=== PATIENT | female | born 1940 | race Caucasian/White ===

== ENCOUNTER 2016-07-13 20:06 | Inpatient (IN) | payer OTHER ==
[~2016-07-13] VITALS: Ht 157.5 cm; Wt 52.7 kg
[~2016-07-13 20:06] MED LIST: CHOLTAB3 PO; EPP3/2 IM; GABA1CAP PO; INSDGI SC; LEVO125T72 PO; LNX125 PO; LORA-741 PO; LSX40 PO; MAGN400T6 PO; NVLGI SC; SPR25 PO; TPRSR50 PO
[2016-07-13] MEDS ORDERED: ONDA8TAB12 PO (20:13)
[2016-07-13] MEDS ORDERED: LOSA50TA6 PO (20:13)
[2016-07-13] MEDS ORDERED: ACET-1487 PO (20:29)
[2016-07-13] MEDS ORDERED: AMOX500T3 PO (20:29)
[2016-07-13] MEDS ORDERED: HYDROmorphone INJ 0.5 MG/0.5 ML SYR IV STA ×3 (21:25→23:01)
[2016-07-13] MEDS ORDERED: SODIUM CHLORIDE 0.9% 500ML 500 ML IV STA (21:25)
[2016-07-13] MEDS ORDERED: ONDANSETRON INJ 2 MG/ML 2 ML VIAL IV STA (21:25)
--- NOTE | 2016-07-13 21:33 | EMERGENCY ROOM VISIT NOTE ---
History Report prepared by Nilesh: Naina Pathak Under the Supervision of: Dr. Steve Haywood M.D. 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 The patient states that she was walking into her house and she tripped up the stairs and fell forwards. She denies any abdominal pain and head injury. The patient reports that she is not on any blood thinners. 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 Review of Systems See HPI for pertinent positives & negatives. A total of 10 systems reviewed and were otherwise negative. Past Medical & Surgical Medical Problems: (1) Acute on chronic systolic heart failure (2) Aortic regurgitation (3) Atrial fibrillation (4) Benign essential hypertension (5) Cerebral hemorrhage (6) Diabetes mellitus type 2 (7) Fibromyalgia (8) Gastroesophageal reflux disease (9) Gout (10) Hemiplegia (11) History of - cerebrovascular accident (12) History of pulmonary embolism (13) Hypothyroidism (14) Pacemaker (15) Presence of IVC filter (16) Renal calculi (17) Shoulder dislocation (18) Systolic CHF, chronic (19) Tricuspid regurgitation Surgical Problems: (1) Status post appendectomy (2) Status post cardiac pacemaker procedure (3) Status post cataract extraction (4) Status post cholecystectomy (5) Status post hysterectomy (6) Status post insertion of inferior vena caval filter Family History Diabetes mellitus FHx: cancer FHx: heart disease Hypertension Social History Smoking Status: Never Smoker Marital Status: Housing Status: lives with family Occupation Status: retired Current/Historical Medications Scheduled Allopurinol (Allopurinol), 150 MG PO QAM Amoxicillin (Amoxil), 2,000 MG PO PRN/UD Atorvastatin (Lipitor), 40 MG PO DAILY Cholecalciferol (Vitamin D 400 Iu), 400 INTER.UNIT PO DAILY Digoxin (Digoxin), 0.125 MG PO DAILY@16 Diltiazem Hcl Ext Rel (Tiazac), 180 MG PO DAILY Furosemide (Lasix), 20 MG PO DAILY Gabapentin (Neurontin), 200 MG PO HS Insulin Aspart (Novolog), 8 UNITS SQ BID UD Insulin Glargine (Lantus), 45 UNITS SQ QAM Levothyroxine Sodium (Synthroid), 125 MCG PO DAILY Lorazepam (Ativan), 0.5 MG PO HS Losartan Potassium (Cozaar), 50 MG PO DAILY Magnesium Oxide (Mag-Ox), 400 MG PO BID Metoprolol Succ (Toprol Xl) (Toprol-Xl), 2 TABS PO QPM Metoprolol Succinate (Toprol Xl), 4 TAB PO QAM Spironolactone (Aldactone), 25 MG PO DAILY Scheduled PRN Acetaminophen (Tylenol Arthritis Ext Rel), 650 MG PO QID PRN for Pain Epinephrine (Epipen), 0.3 MG IM UD PRN for ALLERGIC REACTION Ondansetron Hcl (Zofran), 8 MG PO Q4 PRN for Nausea Miscellaneous Medications Insulin Aspart (Novolog), 4 UNITS SQ Allergies Coded Allergies: Citalopram (Verified Allergy, Unknown, 10/29/15) Paroxetine (Verified Allergy, Unknown, 10/29/15) Sulfa Antibiotics (Verified Allergy, Unknown, TOLERATES LASIX, 10/29/15) Wasp Venom Protein (Verified Allergy, Unknown, HIVES, 10/29/15) Celecoxib (Verified Adverse Reaction, Mild, N/V, 03/03/12) Physical Exam Vital Signs Date Time Temp Pulse Resp B/P Pulse Ox O2 Delivery O2 Flow Rate FiO2 07/14/16 01:45 106 07/14/16 01:20 103 14 155/97 97 Nasal Cannula 3.0 07/13/16 23:39 93 Nasal Cannula 2.0 07/13/16 23:38 87 Room Air 07/13/16 23:34 100 18 163/138 94 Room Air 07/13/16 21:43 93 Room Air 07/13/16 21:43 93 Room Air 07/13/16 21:43 105 18 182/116 92 Room Air 07/13/16 21:39 94 07/13/16 20:07 37.2 111 18 166/96 92 Room Air Physical Exam GENERAL: Patient is a healthy-appearing well-nourished HEAD: Normocephalic atraumatic EYES: Ocular movements intact pupils equal and react to light OROPHARYNX mucous membranes are moist no exudates present no erythema or edema present NECK: Supple no nuchal rigidity CHEST: Good equal expansion LUNGS: Clear and equal to auscultation CARDIAC: Normal S1 and S2 ABDOMEN: Soft nontender no guarding BACK: No CVA tenderness EXTREMITIES: No pain upon palpation normal muscle strength in all groups no clubbing cyanosis or edema. The left leg is shortened and internally rotated, the foot is neurovascularly intact. NEURO: Patient is following commands is answering questions appropriately. Alert and oriented x3 Cranial Nerves 2-12 grossly intact Medical Decision & Procedures ER Provider Diagnostic Interpretation: X-ray results as stated below per interpretation by me and the radiologist: LEFT FEMUR 2 VIEWS ROUTINE DISCUSSION: There is a suspected nondisplaced intertrochanteric left hip fracture. Additional imaging is recommended for confirmation. IMPRESSION: Possible nondisplaced intertrochanteric left hip fracture. Additional imaging is recommended for confirmation. Electronically signed by: Josh Donis M.D. 07/13/2016 10:52 PM Dictated Date/Time: 07/13/2016 10:51 PM PELVIS 1 OR 2 VIEW ROUTINE FINDINGS: There is an intertrochanteric lucency. Given history of pain, the findings may represent a nondisplaced intertrochanteric hip fracture. Additional imaging is recommended for confirmation. The bones are osteopenic. IVC filter is visualized. IMPRESSION: Possible nondisplaced intertrochanteric left hip fracture. Additional imaging is recommended in follow-up for confirmation Electronically signed by: Josh Donis M.D. 07/13/2016 10:51 PM Dictated Date/Time: 07/13/2016 10:[address] LEFT HIP: CT Confirms the presence of comminuted left intertochanteric hip fracture. Associated soft tissue injury. Bladder appears catheterized and decompressed limiting evaluation. There does appear to be soft tissue emphysema and/or extraluminal air in the pelvis. Etiology is uncertain. There is diverticulosis but no diverticulitis is seen. Soft tissues are not ideally defined as exam was protocoled with bone windows for evaluation of the bony structures. Suspected extraluminal air does appear confined to the lower pelvis. Clinical correlation needed. Nonobstructive right renal stones. IVC filter. Possible cirrhotic morphology to partially imaged liver, postoperative changes spine, possible sacroiliitis and other incidental findings. Laboratory Results Test 07/13/16 21:30 07/13/16 23:10 07/14/16 01:58 Total Bilirubin 0.5 mg/dl (0.2-1) Direct Bilirubin 0.1 mg/dl (0-0.2) Aspartate Amino Transf (AST/SGOT) 35 U/L (15-37) Alanine Aminotransferase (ALT/SGPT) 43 U/L (12-78) Alkaline Phosphatase 110 U/L (45-117) Total Protein 8.4 gm/dl (6.4-8.2) Albumin 4.0 gm/dl (3.4-5.0) Urine Color YELLOW Urine Appearance CLEAR (CLEAR) Urine pH 5.0 (4.5-7.5) Urine Specific [place] 1.023 (1.000-1.030) Urine Protein 1+ (NEG) Urine Glucose (UA) 3+ (NEG) Urine Ketones NEG (NEG) Urine Occult Blood 3+ (NEG) Urine Nitrite NEG (NEG) Urine Bilirubin NEG (NEG) Urine Urobilinogen NEG (NEG) Urine Leukocyte Esterase SMALL (NEG) Urine WBC (Auto) 5-10 /hpf (0-5) Urine RBC (Auto) 5-10 /hpf (0-4) Urine Hyaline Casts (Auto) 1-5 /lpf (0-5) Urine Epithelial Cells (Auto) >30 /lpf (0-5) Urine Bacteria (Auto) 4+ (NEG) Urine Renal Epithelial Cells /lpf (0-5) Digoxin Level 0.9 ng/ml (0.8-2.0) Labs reviewed by ED physician. Medications Administered Medications (Trade) Dose Ordered Sig/Lesli Route Start Time Stop Time Status Last Admin Dose Admin Sodium Chloride (Nss 500ml) 500 ml @ 999 mls/hr Q31M STAT IV 07/13/16 21:25 07/13/16 21:55 DC 07/13/16 21:36 999 MLS/HR Hydromorphone HCl (Dilaudid Inj) 0.5 mg NOW STAT IV 07/13/16 21:25 07/13/16 21:27 DC 07/13/16 21:38 0.5 MG Ondansetron HCl (Zofran Inj) 4 mg NOW STAT IV 07/13/16 21:25 07/13/16 21:27 DC 07/13/16 21:37 4 MG Hydromorphone HCl 0.5 mg 0.5 mg NOW STAT IV 07/13/16 21:59 07/13/16 22:00 DC 07/13/16 22:03 0.5 MG Promethazine HCl/ Sodium Chloride (Phenergan Inj/ Nss 50ml) 51 ml @ 204 mls/hr NOW STAT IV 07/13/16 21:59 07/13/16 22:13 DC 07/13/16 22:18 204 MLS/HR Hydromorphone HCl (Dilaudid Inj) 0.5 mg NOW STAT IV 07/13/16 23:01 07/13/16 23:02 DC 07/13/16 23:33 0.5 MG Morphine Sulfate (MoRPHine SULFATE INJ) 6 mg NOW STAT IV 07/13/16 23:49 07/13/16 23:51 DC 07/14/16 00:16 6 MG Metoclopramide HCl (Reglan Inj) 10 mg NOW STAT IV 07/13/16 23:49 07/13/16 23:51 DC 07/14/16 00:17 10 MG Diazepam (Valium Inj) 5 mg NOW STAT IV 07/14/16 01:12 07/14/16 01:13 DC 07/14/16 01:16 5 MG ECG Indication: other (hip pain after fall) Rate (beats per minute): 103 Rhythm: atrial fibrillation Findings: no acute ischemic change, no ectopy, other (RVR) ED Course 2119: Past medical records reviewed. The patient was evaluated in room C10. A complete history and physical examination was performed. 2124: Zofran Inj 4mg IV, Dilaudid Inj 0.5mg IV, Sodium Chloride 500 ml @ 999 mls /hr IV. 2158: Promethazine HCl 25mg/Sodium Chloride 51ml @ 204mls/hr IV, Dilaudid Inj 0.5mg IV. 2300: Dilaudid Inj 0.5mg IV. []: I discussed the patient's case with [], He has agreed to evaluate the patient for further management and care. []: Upon reexamination the patient is hemodynamically stable. I discussed results and treatment plan with the patient. She verbalizes agreement and understanding. I spoke with [] from the [] Hospitalist Service. The patient will be evaluated for further management. Medical Decision Differential diagnosis: Etiologies such as fracture, dislocation, intra-abdominal, pneumothorax, intrathoracic , intracranial, neurologic, as well as other traumatic pathologies were entertained. This is a 76-year-old female who presents emergency department complaining of left hip pain and spasms after a fall at home. The patient appears to have a left hip fracture on x-ray. The patient was sent for CAT scan to further evaluate. Prior to the CAT scan the patient was accidentally catheterized via her vagina which I believe explains the free air on the CAT scan. The patient was given multiple doses of Dilaudid in the emergency department along with morphine and Valium to get her comfortable. I did discuss the case with both Dr. bhakta as well as the hospitalist service to admit the patient. Patient family were in agreement with the treatment plan. Impression Primary Impression: Hip fracture Critical Care I have personally spent greater than 30 minutes of critical care time in the direct management of this patient. This includes bedside care, interpretation of diagnostic studies, and testing, discussion with consultants, patient, and family members, and other required patient management activities. This 30 minutes is in excess of all separately billable procedures. Scribe Attestation The scribe's documentation has been prepared under my direction and personally reviewed by me in its entirety. I confirm that the note above accurately reflects all work, treatment, procedures, and medical decision making performed by me. Departure Information Dispostion Being Evaluated By Hospitalist Referrals Franki Holloway M.D. (PCP) Patient Instructions My [facility] Problem Qualifiers Primary Impression: Hip fracture Encounter type: initial encounter Fracture type: closed Laterality: left Qualified Codes: S72.002A - Fracture of unspecified part of neck of left femur , initial encounter for closed fracture
[2016-07-13 21:40] LABS: BASO % 0.4 %; BASO ABS # 0.02 K/uL (0-0.2); COMPLETE YES; EOS % 2.1 %; HEMATOCRIT 37.1 % (37-47); IG% 0.2 %; LYMPH % 19.5 %; LYMPH ABS # 1.11 K/uL (1.2-3.4); MEAN CELL VOLUME 95.9 fL (80-100); MEAN CORPUSCULAR HEMOGLOBIN 32.3 pg (25-34); MEAN CORPUSCULAR HGB CONC 33.7 g/dl (32-36); MEAN PLATELET VOLUME 9.6 fL (7.4-10.4); MONO % 10.4 %; NEUT % 67.4 %; PLATELET COUNT 127 K/uL (130-400); RED BLOOD COUNT 3.87 M/uL (4.2-5.4); WHITE BLOOD COUNT 5.68 K/uL (4.8-10.8)
[2016-07-13] MEDS ORDERED: PROMETHAZINE HCL INJ 25 MG in SODIUM CHLORIDE 0.9% 50ML 50 ML IV STA (21:59)
[2016-07-13 22:02] LABS: BUN/CREATININE RATIO 37.3 (10-20); CALCIUM 9.1 mg/dl (8.5-10.1); CREATININE 0.79 mg/dl (0.60-1.20)
[2016-07-13 22:06] LABS: POTASSIUM 3.8 mmol/L (3.5-5.1)
[2016-07-13] MEDS ORDERED: INSDGI SQ (22:37)
[2016-07-13] MEDS ORDERED: GABA-112 PO (22:37)
[2016-07-13] MEDS ORDERED: DILT-113 PO (22:37)
[2016-07-13] MEDS ORDERED: METO50TA7 PO (22:37)
[2016-07-13] MEDS ORDERED: ATOR-24 PO (22:37)
[2016-07-13] MEDS ORDERED: METO-217 PO (22:37)
[2016-07-13] MEDS ORDERED: SPIR25TA PO (22:37)
[2016-07-13] MEDS ORDERED: FRS/40 PO (22:37)
[2016-07-13] MEDS ORDERED: CHOL400C7 PO (22:37)
[2016-07-13] MEDS ORDERED: NVLG SQ ×2 (22:37)
--- NOTE | 2016-07-13 22:52 | DIAGNOSTIC IMAGING REPORT ---
PELVIS 1 OR 2 VIEW ROUTINE CLINICAL HISTORY: Left hip pain COMPARISON STUDY: No previous studies for comparison. FINDINGS: There is an intertrochanteric lucency. Given history of pain, the findings may represent a nondisplaced intertrochanteric hip fracture. Additional imaging is recommended for confirmation. The bones are osteopenic. IVC filter is visualized. IMPRESSION: Possible nondisplaced intertrochanteric left hip fracture. Additional imaging is recommended in follow-up for confirmation Electronically signed by: Josh Donis M.D. 07/13/2016 10:51 PM Dictated Date/Time: 07/13/2016 10:49 PM
--- NOTE | 2016-07-13 22:54 | DIAGNOSTIC IMAGING REPORT ---
LEFT FEMUR 2 VIEWS ROUTINE CLINICAL HISTORY: Left femur pain. COMPARISON: None. DISCUSSION: There is a suspected nondisplaced intertrochanteric left hip fracture. Additional imaging is recommended for confirmation. IMPRESSION: Possible nondisplaced intertrochanteric left hip fracture. Additional imaging is recommended for confirmation. Electronically signed by: Josh Donis M.D. 07/13/2016 10:52 PM Dictated Date/Time: 07/13/2016 10:51 PM
[2016-07-13 23:26] LABS: URINE APPEARANCE CLEAR (CLEAR); URINE BILIRUBIN NEG (NEG); URINE COLOR YELLOW; URINE EPITHELIAL CELL AUTO >30 /lpf (0-5); URINE NITRITE NEG (NEG); URINE SPECIFIC GRAVITY 1.023 (1.000-1.030); UROBILINOGEN NEG (NEG); ZZURINE CULT IF INDIC CATH YES
[2016-07-13] MEDS ORDERED: ALL300 PO (23:29)
[2016-07-13] MEDS ORDERED: LORA-741 PO (23:36)
[2016-07-13 23:47] LABS: MANUAL MICROSCOPIC REQUIRED? NO; REVIEW REQ? YES
[2016-07-13] MEDS ORDERED: MoRPHine SULFATE 10 MG/ML CARP/VIAL IV STA (23:49)
[2016-07-13] MEDS ORDERED: METOCLOPRAMIDE HCL INJ 5 MG/ML 2 ML VIAL IV STA (23:49)
[2016-07-14] VITALS (7 sets, daily range): BP systolic 120–160; BP diastolic 63–92; PULSE 60–113; TEMP 36.4–36.9; O2SAT 89–95; Ht 157.5 cm; Wt 52.7 kg
[2016-07-14] MEDS ORDERED: DIAZEPAM INJ 5 MG/ML 2 ML CARP IV STA (01:12)
[2016-07-14] MEDS ORDERED: DEXTROSE 50% 50 ML SYR IV PRN (02:15)
[2016-07-14] MEDS ORDERED: GLUCOSE 10 TABS/TUBE PO PRN (02:15)
[2016-07-14] MEDS ORDERED: ACETAMINOPHEN 325 MG TAB PO PRN (02:15)
[2016-07-14] MEDS ORDERED: GLUCOSE 40% GEL 15 GM TUBE PO PRN (02:15)
[2016-07-14] MEDS ORDERED: LEVALBUTEROL/IPRATROPIUM NEB INH PRN (02:15)
[2016-07-14] MEDS ORDERED: TRAMADOL HCL 50 MG TAB PO PRN (02:15)
[2016-07-14] MEDS ORDERED: GLUCAGON FOR INJ 1 MG VIAL SQ PRN (02:15)
[2016-07-14] MEDS ORDERED: HYDROmorphone INJ 0.5 MG/0.5 ML SYR IV ONE (02:30)
[2016-07-14] MEDS ORDERED: FUROSEMIDE 40 MG TAB PO ONE (02:45)
[2016-07-14] MEDS ORDERED: LORAZEPAM 2 MG/ML 1 ML VIAL IV PRN (02:45)
[2016-07-14] MEDS ORDERED: POTASSIUM CHLORIDE 10 MEQ TABCR PO STA (02:45)
[2016-07-14] MEDS ORDERED: METOPROLOL SUCC 50MG EXT REL TAB PO ONE (02:45)
[2016-07-14] MEDS ORDERED: GABAPENTIN 100 MG CAP PO ONE (03:15)
[2016-07-14] MEDS ORDERED: INSULIN ASPART 100 UNITS/ML 3 ML PEN SC ONE (03:15)
[2016-07-14] MEDS ORDERED: IPRATROPIUM BROMIDE NEB SOLN 0.02% 2.5 ML VIAL INH PRN (03:30)
[2016-07-14] MEDS ORDERED: LEVALBUTEROL 1.25MG/0.5ML NEB INH PRN (03:30)
[2016-07-14] MEDS ORDERED: LORAZEPAM INJ 0.25 MG in SYRINGE 0.125 ML IV PRN (03:30)
[2016-07-14] MEDS: OXYCODONE/ACETAMINOPHEN 5-325 TAB PO PRN ×3 (03:35→21:24)
[2016-07-14] MEDS: LEVOTHYROXINE 125 MCG TAB PO SCH (05:49)
--- NOTE | 2016-07-14 06:54 | DIAGNOSTIC IMAGING REPORT ---
CT OF THE PELVIS AND HIPS WITHOUT CONTRAST CT DOSE: 540.48 mGy.cm CLINICAL HISTORY: Left hip pain following fall. TECHNIQUE: Axial images of the pelvis and hips were obtained without IV or oral contrast. Sagittal and coronal reconstructions were viewed. COMPARISON STUDY: CT of the abdomen and pelvis April 16, 2014. FINDINGS: Visualized portions of the liver demonstrates surface nodularity suggestive of cirrhosis. There is an IVC filter. There are several nonobstructing right renal calculi within the lower pole of the right kidney. There is extensive sigmoid diverticulosis. There is a Gonzalez balloon within the bladder which is decompressed. Of note, there is abnormal gas within the pelvis which may be extraluminal or within the wall of the bladder. This is suboptimal assessed on this unenhanced exam. There is no evidence of acute diverticulitis on this exam. Note is made of a moderately displaced, comminuted and angulated intertrochanteric fracture of the left femur with associated soft tissue swelling. This corresponds to the finding on radiograph. No additional acute fractures are identified within the hips or pelvis. IMPRESSION: 1. Acute comminuted, displaced intertrochanteric fracture of the left femur. 2. Decompressed bladder containing a Gonzalez balloon. Abnormal gas within the pelvis centered on the bladder. This could be within the bladder wall or adjacent soft tissues. Bladder wall gas is favored. The finding is nonspecific and this could be traumatic or infectious. Correlation with urinalysis is recommended. 3. Extensive sigmoid diverticulosis without evidence for acute diverticulitis. Electronically signed by: Jonathan Pederson M.D. 07/14/2016 6:53 AM Dictated Date/Time: 07/14/2016 6:44 AM
[2016-07-14] MEDS: HYDROmorphone INJ 0.5 MG/0.5 ML SYR IV PRN ×2 (07:08→23:45)
[2016-07-14 07:23] LABS: BASO % 0.3 %; BASO ABS # 0.03 K/uL (0-0.2); COMPLETE YES; EOS % 0.8 %; HEMATOCRIT 33.4 % (37-47); IG% 0.2 %; LYMPH % 12.3 %; LYMPH ABS # 1.31 K/uL (1.2-3.4); MEAN CELL VOLUME 98.5 fL (80-100); MEAN CORPUSCULAR HGB CONC 33.5 g/dl (32-36); MEAN PLATELET VOLUME 9.7 fL (7.4-10.4); MONO % 11.1 %; NEUT % 75.3 %; PLATELET COUNT 133 K/uL (130-400); RED BLOOD COUNT 3.39 M/uL (4.2-5.4); WHITE BLOOD COUNT 10.66 K/uL (4.8-10.8)
--- NOTE | 2016-07-14 07:58 | DIAGNOSTIC IMAGING REPORT ---
CHEST ONE VIEW PORTABLE CLINICAL HISTORY: Hypoxia. Left hip fracture. COMPARISON STUDY: Chest radiograph September 22, 2014. FINDINGS: A dual lead left subclavian pacemaker is in place. Marked cardiomegaly is unchanged per there is no evidence of pulmonary edema. Probably vascular congestion is unchanged. A large lateral hernia is again noted. There is no lobar consolidation. IMPRESSION: 1. Pulmonary vascular congestion without overt pulmonary edema. 2. Marked cardiomegaly. 3. Hiatal hernia. 4. Possible trace left pleural effusion. Electronically signed by: Jonathan Pederson M.D. 07/14/2016 7:57 AM Dictated Date/Time: 07/14/2016 7:55 AM
[2016-07-14 08:00] LABS: BUN/CREATININE RATIO 35.3 (10-20); CALCIUM 8.9 mg/dl (8.5-10.1); CREATININE 0.8 mg/dl (0.60-1.20); MAGNESIUM 1.9 mg/dl (1.8-2.4); POTASSIUM 4.3 mmol/L (3.5-5.1)
[2016-07-14] MEDS: CALCIUM 600MG + VIT D 400 IU TAB PO SCH ×2 (08:46→21:10)
[2016-07-14] MEDS: LOSARTAN POTASSIUM 50 MG TAB PO SCH (08:46)
[2016-07-14] MEDS: ATORVASTATIN 40 MG TAB PO SCH ×2 (08:48→08:59)
[2016-07-14] MEDS: METOPROLOL SUCC 50MG EXT REL TAB PO SCH ×2 (08:49→21:09)
[2016-07-14] MEDS: ALLOPURINOL 300 MG TAB PO SCH (08:49)
[2016-07-14] MEDS: INSULIN ASPART 100 UNITS/ML 3 ML PEN SC SCH ×4 (08:53→21:16)
[2016-07-14] MEDS ORDERED: FUROSEMIDE 20 MG TAB PO SCH (09:00)
[2016-07-14] MEDS ORDERED: INSULIN GLARGINE SOLOSTAR 100 UNITS/ML 3 ML PEN SQ SCH (09:00)
[2016-07-14] MEDS ORDERED: DILTIAZEM HCL (TIAzac) 180 MG CAPCR PO SCH (09:00)
--- NOTE | 2016-07-14 09:40 | HISTORY & PHYSICAL EXAMINATION ---
DATE OF ADMISSION: 07/14/2016 PRIMARY CARE PHYSICIAN: Dr. Fontenot. Hx obtained from px and records. CHIEF COMPLAINT: Right hip pain, fall. HISTORY OF PRESENT ILLNESS: Medical history significant for chronic systolic heart failure, EF 35% to 39%, history of SSS sp PPM, off anticoagulation because of history of frequent falls/ rectus sheath hematoma/ subarachnoid hemorrhage in the past, chronic thrombocytopenia HTN, DM2, insulin requiring;. Recent confinement last September 2014 for rapid AFib. At home, the patient tripped on stairs yesterday. Subsequently fell down, landing on her left side, no chest pain, no sob. Excruciating left hip pain, could not get up. Px brought to Emergency Room. MEDICAL HISTORY: As above. Most recent 2D echo from the office was in November 2015, which showed EF 35-39%, diffuse LV hypokinesis, left atrial enlargement, moderate MR, and moderate TR. Last outpatient [facility] cardiology visit was about 2 weeks ago. Px was complaining of increased tiredness and fatigue, shortness of breath, weight up to 14 pounds, and transient episode of chest discomfort as per note. Assessment at that time was decompensated heart failure. Diuretic dose was doubled for the next 5 days. Patient was to return for evaluation in 10 days. Recommend another AVJ ablation by [facility]. (hx partial modified AVJ ablation at [facility]) As per the patient, symptoms, leg swelling better after diuretic medication adjustment. SURGERIES: Appendectomy, cholecystectomy, hysterectomy, IVC filter placement, cataract surgery, some back surgery, wrist surgery, and pacemaker placement. HOME MEDICATIONS: Include cholecalciferol epinephrine, insulin, lorazepam, magnesium, Zofran, acetaminophen, albuterol, atorvastatin, digoxin, diltiazem, furosemide, gabapentin, Lantus, levothyroxine, losartan, metoprolol, and spironolactone. FAMILY HISTORY: Diabetes, heart disease, and high blood pressure. PERSONAL SOCIAL HISTORY: Nonsmoker. No chronic intake of alcoholic beverages. 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 REVIEW OF SYSTEMS: As per HPI, all other ROS negative. PHYSICAL EXAMINATION: VITAL SIGNS: Blood pressure noted to be 182/116, pulse rate 105, RR 14, temperature 37.2, and Sats initially 87, later 96 on room air. GENERAL: Noted to be uncomfortable. No respiratory distress. SKIN: Normal color. HEENT: [place] palpable conjunctivae. Dry mucosa. NECK: Supple. CHEST: Clear to auscultation. LUNGS: Decreased breath sounds. HEART: irregular, tachycardic, systolic murmur. ABDOMEN: Some distention, non-tenderness. EXTREMITIES: Tenderness in the left hip. NEUROLOGIC: No gross focality. LABS: Hemoglobin was noted to be 12, hematocrit 37, white cell count 5, and platelets 127. Sodium 136, chloride 103, CO2 29, BUN 30, creatinine 0.7, glucose 217. Hemoglobin A1c 05/[address] of the hip initial read, comminuted left intertrochanteric hip fracture with associated soft tissue injury. EKG noted to have AFib, rate 105, left bundle branch block. Chest x-ray cardiomegaly, min congestion. ASSESSMENT: 1. Traumatic L hip fracture secondary to mechanical fall ? underlying osteoporosis 2. Hypertensive urgency secondary to above, missed meds. 3. SSS sp PPM px currently in AF, rate slightly uncontrolled 2 to pain, missed meds off anticoagulation because of fall risk and multiple bleeding events in the past. 4. History of intracranial hemorrhage. 5. DM2, insulin requiring suboptimal control as of recent outpx HgA1c. 6. Chronic systolic heart failure (EF 35%) improved CHF sx as per px albeit mild pulm congestion on CXR following last outpatient [facility] Cardiology visit 2 weeks ago w/ additional diuretic dosing. 7. Chronic thrombocytopenia. 8. Fibromyalgia as per records PLAN: [facility] Orthopedics consult, left hip fracture. Case dw Dr. Bowen. Patient will likely need surgery. Recommend Cardiology followup eval for CHF prior to OR. (Patient known to [facility].) Continue home diuretics, rate control meds analgesia check Vit D level, postop Ca-D supplementation basal insulin, ISS BG goal 140-140. Carb count coverage indicated for suboptimal blood sugar control. Deep venous thrombosis prophylaxis SCDs RE hx ICH, thrombocytopenia. Full code. MTDD
[2016-07-14] MEDS: HYDROmorphone INJ 1 MG/ML SYR IV PRN ×2 (10:14→13:45)
[2016-07-14] MEDS ORDERED: DILTIAZEM HCL 60 MG TAB PO ONE (10:15)
--- NOTE | 2016-07-14 10:23 | ORTHOPEDIC CONSULTATION ---
DATE OF ADMISSION: 07/14/2016 CHIEF COMPLAINT: Left hip pain. HISTORY OF PRESENT ILLNESS: Roxana is a delightful patient. I have known the family for 40 years. The patient has an intertrochanteric fracture on the left hip and had a ground level fall yesterday evening, was out in community, ambulating and doing moderately well in spite of her chronic heart history, developed subacute injury. She was brought to the ER, evaluated and treated. I was consulted as was medicine. She was admitted to the medical service and I am seeing her in consultation for her left hip fracture. MEDICAL HISTORY: Positive for chronic heart failure, AFib. She is off anticoagulants because of frequent falls, injuries and bleeding. She has sick sinus syndrome, pacemaker. PAST SURGICAL HISTORY: Appendectomy, cholecystectomy, hysterectomy, IVC filter placement, cataract, wrist surgery and pacemaker placement. MEDICATIONS: Numerous, they are on the questionnaire and her H\T\P. I am not dictating those for concise records. FAMILY HISTORY: Diabetes, heart disease, hypertension. SOCIAL HISTORY: Nonsmoker. REVIEW OF SYSTEMS: Twelve system review taken, really the only thing positive is her left lower extremity difficulty. Everything else is denied. OBJECTIVE: GENERAL: She is alert, oriented, pleasant young lady, looks her stated age of 76. She is alert, oriented. Mentation normal. No depression. VITAL SIGNS: Blood pressure 182/116, pulse rate chronically over 100, respiratory rate 14, afebrile. CARDIAC: Normal S1, S2. LUNGS: Clear to auscultation. No rales, rhonchi, or wheezing. ABDOMEN: Soft, nontender. EXTREMITIES: She has tenderness to her left hip, decreased range of motion of the left hip. NEUROLOGIC: Intact. DIAGNOSTIC DATA: Images reviewed demonstrate a 2-part intratrochanteric fracture of the left hip with adequate bone quality. ASSESSMENT: Delightful young lady, 76 years of age with chronic cardiac disease and myelopathy along now with an intertrochanteric fracture of the hip. DISPOSITION: I have scheduled her for surgery tomorrow, which is the 15 of July with the first add-on case when the case should start around 8:00 a.m. Cardiology has done a marvelous job today working her up and when I spoke with brick tester, I think she is fairly optimized and will be optimized today and hopefully can get this fixed and we need to get her up on her feet. The surgery should take approximately 60 minutes. Estimates EBL of blood loss will be less than 200 mL. MTDD
[2016-07-14] MEDS: DIGOXIN 0.125 MG TAB PO SCH (15:56)
--- NOTE | 2016-07-14 16:01 | ECHOCARDIOGRAM REPORT ---
*NOTICE TO RECEIVING CONSTITUTION PARTY AGENCY This information is strictly Confidential and protected under [place] law. [place] law prohibits you from making any further disclosure of this information unless further disclosure is expressly permitted by the written consent of the person to whom it pertains or is authorized by law. A general authorization for the release of medical or other information is not sufficient for this purpose. Hospital accepts no responsibility if the information is made available to any other person, INCLUDING THE PATIENT. Interpretation Summary * Name: GWEN HENAO Study Date: 07/14/2016 10:14 AM BP: 127/73 mmHg * Patient Location: .3E\S\E318\S\1 HR: 113 * : 1940 (M/d/yyyy) Gender: Female Height: 62 in * Age: 76 yrs Ethnicity: CA Weight: 116 lb * Ordering Physician: Jules Robertson * Performed By: Klarissa Lorenzo RDCS * * Reason For Study: CHF * BSA: 1.5 m2 * The study was technically adequate. * Compared to prior study, changes are noted. * -- Conclusions -- * Left ventricular systolic function is mildly reduced. * Ejection Fraction = 40-45%. * There is moderate concentric left ventricular hypertrophy. * Septal motion is consistent with conduction abnormality. * Otherwise, mild global hypokinesis. * There is mild to moderate tricuspid regurgitation. Procedure Details * A complete two-dimensional transthoracic echocardiogram was performed (2D, M-mode, Doppler and color flow Doppler). Left Ventricle * The left ventricle is normal in size. * There is no thrombus. * There is moderate concentric left ventricular hypertrophy. * Left ventricular systolic function is mildly reduced. * Ejection Fraction = 40-45%. * Septal motion is consistent with conduction abnormality. * Otherwise, mild global hypokinesis. Right Ventricle * The right ventricular cavity size is normal (basal dimension <4.2 cm in right ventricular apical 4-chamber view). * There is a pacemaker lead in the right ventricle. * The right ventricular systolic function is normal. Atria * The left atrium is severely dilated. * Right atrial size is normal. Mitral Valve * There is severe mitral annular calcification. * There is no mitral valve stenosis. * There is mild mitral regurgitation. Tricuspid Valve * The tricuspid valve anatomy is normal. * There is no tricuspid stenosis. * There is mild to moderate tricuspid regurgitation. * Doppler findings do not suggest pulmonary hypertension. Aortic Valve * The aortic valve is trileaflet. * Aortic valve sclerosis mild, without significant aortic valvular stenosis. * No hemodynamically significant valvular aortic stenosis. * Mild aortic regurgitation. Pulmonic Valve * The pulmonary valve is inadequately visualized, but the Doppler data is adequate for interpretation. * There is no pulmonic valvular stenosis. * Trace pulmonic valvular regurgitation. Great Vessels * The aortic root is normal size. Pericardium/Pleural * There is no pericardial effusion. Great Vessels * Normal inferior vena cava size and collapsability with sniff indicates a normal right atrial pressure of 3 mmHg Left Ventricular Diastolic Function * Pulse wave TDI of the anterior and posterior mitral annulas demonstrates abnormal LV relaxation MMode 2D Measurements and Calculations IVSd 1.5 cm LVIDd 3.9 cm LVIDs 2.7 cm LVPWd 1.4 cm IVS/LVPW 1.0 FS 31.1 % EDV(Teich) 64.2 ml ESV(Teich) 26.0 ml EF(Teich) 59.5 % EDV(cubed) 57.4 ml ESV(cubed) 18.8 ml EF(cubed) 67.3 % LV mass(C)d 205.4 grams LV mass(C)dI 135.4 grams/m\S\2 CO(Teich) 3.0 l/min CI(Teich) 2.0 l/min/m\S\2 SV(Teich) 38.2 ml SI(Teich) 25.2 ml/m\S\2 CO(cubed) 3.0 l/min CI(cubed) 2.0 l/min/m\S\2 SV(cubed) 38.6 ml SI(cubed) 25.5 ml/m\S\2 Ao root diam 3.5 cm Ao root area 9.7 cm\S\2 ACS 2.1 cm LA dimension 3.8 cm asc Aorta Diam 3.3 cm LA/Ao 1.1 LVOT diam 2.1 cm LVOT area 3.4 cm\S\2 LVAd ap4 25.7 cm\S\2 LVLd ap4 7.5 cm EDV(MOD-sp4) 72.2 ml LVAs ap4 19.2 cm\S\2 LVLs ap4 7.4 cm ESV(MOD-sp4) 42.0 ml EF(MOD-sp4) 41.8 % LVAd ap2 26.0 cm\S\2 LVLd ap2 8.1 cm EDV(MOD-sp2) 69.2 ml LVAs ap2 18.2 cm\S\2 LVLs ap2 7.2 cm ESV(MOD-sp2) 39.7 ml EF(MOD-sp2) 42.6 % CO(MOD-sp4) 2.4 l/min CI(MOD-sp4) 1.6 l/min/m\S\2 SV(MOD-sp4) 30.2 ml SI(MOD-sp4) 19.9 ml/m\S\2 CO(MOD-sp2) 2.3 l/min CI(MOD-sp2) 1.5 l/min/m\S\2 SV(MOD-sp2) 29.5 ml SI(MOD-sp2) 19.5 ml/m\S\2 Doppler Measurements and Calculations MV E max pepe 103.3 cm/sec MV dec time 0.18 sec Ao V2 max 128.6 cm/sec Ao max PG 6.6 mmHg Ao max PG (full) 4.4 mmHg KHANG(V,A) 2.0 cm\S\2 KHANG(V,D) 2.0 cm\S\2 AI max pepe 382.5 cm/sec AI max PG 58.5 mmHg AI dec slope 167.5 cm/sec\S\2 AI P1/2t 668.9 msec LV V1 max PG 2.3 mmHg LV V1 max 75.2 cm/sec PA V2 max 65.2 cm/sec PA max PG 1.7 mmHg PA acc slope 487.4 cm/sec\S\2 PA acc time 0.09 sec PI max pepe 194.1 cm/sec PI max PG 15.1 mmHg PI dec slope 206.0 cm/sec\S\2 PI P1/2t 275.9 msec TR max pepe 228.7 cm/sec PA pr(Accel) 37.8 mmHg
--- NOTE | 2016-07-14 16:25 | Progress Note ---
Internal Med Progress Note Date of Service: Jul 14, 2016. Provider Documentation: SUBJECTIVE: Patient is seen and examined at bedside. She states having left hip pain. Denies any chest pain, SOB. Planned for surgery in AM. offers no other complaints. OBJECTIVE: Vital Signs-as noted below Physical Exam: General Appearance:Thin, fragile, no apparent distress Head: normocephalic, Atraumatic Eyes: normal inspection, EOMI, PERRL Neck: supple, Trachea midline Respiratory/Chest: Normal breath sounds, + creps at bases Cardiovascular: S1, S2, + systolic murmur Abdomen/GI:Soft, Non tender, Bowel sounds present Extremities/Musculoskelatal:normal inspection, no edema, decreased LLE ROM, + tender left hip Neurologic/Psych:AAOX3, grossly no focal neurological deficits Skin: normal color, warm Lab data as noted below. ASSESSMENT & PLAN: Intertrochanteric fracture of Left hip: Secondary to mechanical fall Could have underlying osteoporosis Pain control NPO after midnight for surgery tomorrow Orthopedic surgery on board Planned for Cardiology follow up eval for CHF prior to OR Cardiology consulted Hypertensive urgency: Likely secondary to pain, missed meds Resolved Continue current meds Continue to monitor Possible UTI: Urine culture:gram negative bacilli Start IV Ceftriaxone Follow up Urine sensitivities Vit D deficiency: Continue Calcium, Vit D supplements Vit D levels:13.0 SSS S/P PPM H/O Afib H/O partial modified AVJ ablation at [facility] Off anticoagulation because of fall risk and multiple bleeding events in the past Continue Digoxin, Cardizem, BB per cardiology Cardiology following H/O Intracranial hemorrhage/Rectus sheath hematoma Stable Denies head trauma during fall this encounter Monitor Hb DM II: Uncontrolled Likely secondary to pain/Infection ISS, Lantus, Accu checks Chronic systolic heart failure: Last EF 35% Improved CHF currently after last outpatient [facility] Cardiology visit 2 weeks ago w / additional diuretic dosing Diuretics per cardiology Continue digoxin, lasix, spironolactone Appreciate cardiology help Chronic thrombocytopenia: No active bleeding Monitor H/O Fibromyalgia: Stable DVT Px: SCDs, Reason: H/O ICH, thrombocytopenia CODE STATUS: Full code DISPOSITION: Continue to monitor PROCEDURES ECHO: * Left ventricular systolic function is mildly reduced. * Ejection Fraction = 40-45%. * There is moderate concentric left ventricular hypertrophy. * Septal motion is consistent with conduction abnormality. * Otherwise, mild global hypokinesis. * There is mild to moderate tricuspid regurgitation. Vital Signs: Date Time Temp Pulse Resp B/P Pulse Ox O2 Delivery O2 Flow Rate FiO2 07/14/16 16:00 92 Nasal Cannula 2.0 07/14/16 15:56 80 07/14/16 15:38 36.9 60 18 121/63 92 Nasal Cannula 2.0 07/14/16 08:45 94 Nasal Cannula 2.0 07/14/16 08:10 94 Nasal Cannula 2.0 07/14/16 07:20 36.9 113 16 127/73 89 Room Air 07/14/16 03:20 36.4 100 18 160/92 Room Air 07/14/16 02:52 115 18 159/122 96 07/14/16 01:45 106 07/14/16 01:20 103 14 155/97 97 Nasal Cannula 3.0 07/13/16 23:39 93 Nasal Cannula 2.0 07/13/16 23:38 87 Room Air 07/13/16 23:34 100 18 163/138 94 Room Air 07/13/16 21:43 93 Room Air 07/13/16 21:43 93 Room Air 07/13/16 21:43 105 18 182/116 92 Room Air 07/13/16 21:39 94 07/13/16 20:07 37.2 111 18 166/96 92 Room Air Lab Results: Results Past 24 Hours Test 07/13/16 21:30 07/13/16 23:10 07/14/16 01:58 07/14/16 03:50 Range/Units White Blood Count 5.68 4.8-10.8 K/uL Red Blood Count 3.87 4.2-5.4 M/uL Hemoglobin 12.5 12.0-16.0 g/dL Hematocrit 37.1 37-47 % Mean Corpuscular Volume 95.9 80-100 fL Mean Corpuscular Hemoglobin 32.3 25-34 pg Mean Corpuscular Hemoglobin Concent 33.7 32-36 g/dl Platelet Count 127 130-400 K/uL Mean Platelet Volume 9.6 7.4-10.4 fL Neutrophils (%) (Auto) 67.4 % Lymphocytes (%) (Auto) 19.5 % Monocytes (%) (Auto) 10.4 % Eosinophils (%) (Auto) 2.1 % Basophils (%) (Auto) 0.4 % Neutrophils # (Auto) 3.83 1.4-6.5 K/uL Lymphocytes # (Auto) 1.11 1.2-3.4 K/uL Monocytes # (Auto) 0.59 0.11-0.59 K/uL Eosinophils # (Auto) 0.12 0-0.5 K/uL Basophils # (Auto) 0.02 0-0.2 K/uL RDW Standard Deviation 45.4 36.4-46.3 fL RDW Coefficient of Variation 13.1 11.5-14.5 % Immature Granulocyte % (Auto) 0.2 % Immature Granulocyte # (Auto) 0.01 0.00-0.02 K/uL Sodium Level 141 136-145 mmol/L Potassium Level 3.8 3.5-5.1 mmol/L Chloride Level 103 98-107 mmol/L Carbon Dioxide Level 29 21-32 mmol/L Anion Gap 9.0 3-11 mmol/L Blood Urea Nitrogen 30 7-18 mg/dl Creatinine 0.79 0.60-1.20 mg/dl Est Creatinine Clear Calc Drug Dose 49.4 ml/min Estimated GFR () 85.5 Estimated GFR (Non- 73.7 BUN/Creatinine Ratio 37.3 10-20 Random Glucose 217 70-99 mg/dl Calcium Level 9.1 8.5-10.1 mg/dl Total Bilirubin 0.5 0.2-1 mg/dl Direct Bilirubin 0.1 0-0.2 mg/dl Aspartate Amino Transf (AST/SGOT) 35 15-37 U/L Alanine Aminotransferase (ALT/SGPT) 43 12-78 U/L Alkaline Phosphatase 110 45-117 U/L Total Protein 8.4 6.4-8.2 gm/dl Albumin 4.0 3.4-5.0 gm/dl Urine Color YELLOW Urine Appearance CLEAR CLEAR Urine pH 5.0 4.5-7.5 Urine Specific [place] 1.023 1.000-1.030 Urine Protein 1+ NEG Urine Glucose (UA) 3+ NEG Urine Ketones NEG NEG Urine Occult Blood 3+ NEG Urine Nitrite NEG NEG Urine Bilirubin NEG NEG Urine Urobilinogen NEG NEG Urine Leukocyte Esterase SMALL NEG Urine WBC (Auto) 5-10 0-5 /hpf Urine RBC (Auto) 5-10 0-4 /hpf Urine Hyaline Casts (Auto) 1-5 0-5 /lpf Urine Epithelial Cells (Auto) >30 0-5 /lpf Urine Bacteria (Auto) 4+ NEG Urine Renal Epithelial Cells 0-5 /lpf Digoxin Level 0.9 0.8-2.0 ng/ml Bedside Glucose 239 70-90 mg/dl Test 07/14/16 07:05 07/14/16 07:59 07/14/16 11:36 07/14/16 16:52 Range/Units White Blood Count 10.66 4.8-10.8 K/uL Red Blood Count 3.39 4.2-5.4 M/uL Hemoglobin 11.2 12.0-16.0 g/dL Hematocrit 33.4 37-47 % Mean Corpuscular Volume 98.5 80-100 fL Mean Corpuscular Hemoglobin 33.0 25-34 pg Mean Corpuscular Hemoglobin Concent 33.5 32-36 g/dl Platelet Count 133 130-400 K/uL Mean Platelet Volume 9.7 7.4-10.4 fL Neutrophils (%) (Auto) 75.3 % Lymphocytes (%) (Auto) 12.3 % Monocytes (%) (Auto) 11.1 % Eosinophils (%) (Auto) 0.8 % Basophils (%) (Auto) 0.3 % Neutrophils # (Auto) 8.04 1.4-6.5 K/uL Lymphocytes # (Auto) 1.31 1.2-3.4 K/uL Monocytes # (Auto) 1.18 0.11-0.59 K/uL Eosinophils # (Auto) 0.08 0-0.5 K/uL Basophils # (Auto) 0.03 0-0.2 K/uL RDW Standard Deviation 47.9 36.4-46.3 fL RDW Coefficient of Variation 13.4 11.5-14.5 % Immature Granulocyte % (Auto) 0.2 % Immature Granulocyte # (Auto) 0.02 0.00-0.02 K/uL Activated Partial Thromboplast Time 24.7 21.0-31.0 SECONDS Partial Thromboplastin Ratio 1.0 Sodium Level 140 136-145 mmol/L Potassium Level 4.3 3.5-5.1 mmol/L Chloride Level 106 98-107 mmol/L Carbon Dioxide Level 29 21-32 mmol/L Anion Gap 5.0 3-11 mmol/L Blood Urea Nitrogen 28 7-18 mg/dl Creatinine 0.80 0.60-1.20 mg/dl Est Creatinine Clear Calc Drug Dose 48.8 ml/min Estimated GFR () 84.2 Estimated GFR (Non- 72.6 BUN/Creatinine Ratio 35.3 10-20 Random Glucose 224 70-99 mg/dl Calcium Level 8.9 8.5-10.1 mg/dl Magnesium Level 1.9 1.8-2.4 mg/dl 25-Hydroxy Vitamin D Total 13.0 30-100 ng/ml Bedside Glucose 223 276 252 70-90 mg/dl Microbiology Results 07/13/16 Urine Culture - Preliminary, Resulted Gram Negative Bacilli
--- NOTE | 2016-07-14 18:13 | Progress Note ---
Progress Note Date of Service Jul 14, 2016. Progress Note 76 year old for IM [place] of L femur after a mechanical fall and fracture. Patient has an extensive cardiac history of chronic CHF and is closely followed for this problem. On presentation, her rapid AFib and acute HTN due to pain did leave her somewhat decompensated, but on managing these, her echocardiogram today shows improved systolic function from the most recent old echo in our files along with normal valves. In the past she has a history of hemorrhagic CVA but without new neurologic symptoms, that does not seem to be a factor here in precluding spinal. She is potentially a candidate for both spinal or general anesthesia on 07/15 at moderate risk. Given her baseline anemia and the potential for moderate blood loss, I have ordered a type and screen.
[2016-07-14] MEDS ORDERED: ERGOCALCIFEROL 50,000 INTER.UNIT CAP PO SCH (19:00)
[2016-07-14] MEDS: CEFTRIAXONE SOD INJ 1 GM in DEXTROSE 5% ADD-VANTAGE 50ML 50 ML IV SCH (19:03)
[2016-07-14] MEDS ORDERED: INSULIN GLARGINE SOLOSTAR 100 UNITS/ML 3 ML PEN SC ONE (20:50)
[2016-07-14] MEDS: GABAPENTIN 100 MG CAP PO SCH (21:10)
[2016-07-14 23:38] LABS: BUN/CREATININE RATIO 34.8 (10-20); CALCIUM 8.9 mg/dl (8.5-10.1); CREATININE 1.1 mg/dl (0.60-1.20); MAGNESIUM 1.9 mg/dl (1.8-2.4)
--- NOTE | 2016-07-14 23:43 | Progress Note ---
Internal Med Progress Note Date of Service: Jul 14, 2016. Provider Documentation: Made aware by RN of low urine output. increased serum crea on repeat labwork. gentle IVF while NPO for poss surgery in AM hold home diuretics for now Will relay to AM provider. Vital Signs: Date Time Temp Pulse Resp B/P Pulse Ox O2 Delivery O2 Flow Rate FiO2 07/14/16 23:55 Nasal Cannula 2.0 07/14/16 23:10 36.8 67 18 120/65 95 Nasal Cannula 2.0 07/14/16 16:00 92 Nasal Cannula 2.0 07/14/16 15:56 80 07/14/16 15:38 36.9 60 18 121/63 92 Nasal Cannula 2.0 07/14/16 08:45 94 Nasal Cannula 2.0 07/14/16 08:10 94 Nasal Cannula 2.0 07/14/16 07:20 36.9 113 16 127/73 89 Room Air Lab Results: Results Past 24 Hours Test 07/14/16 07:05 07/14/16 07:59 07/14/16 11:36 07/14/16 16:52 Range/Units White Blood Count 10.66 4.8-10.8 K/uL Red Blood Count 3.39 4.2-5.4 M/uL Hemoglobin 11.2 12.0-16.0 g/dL Hematocrit 33.4 37-47 % Mean Corpuscular Volume 98.5 80-100 fL Mean Corpuscular Hemoglobin 33.0 25-34 pg Mean Corpuscular Hemoglobin Concent 33.5 32-36 g/dl Platelet Count 133 130-400 K/uL Mean Platelet Volume 9.7 7.4-10.4 fL Neutrophils (%) (Auto) 75.3 % Lymphocytes (%) (Auto) 12.3 % Monocytes (%) (Auto) 11.1 % Eosinophils (%) (Auto) 0.8 % Basophils (%) (Auto) 0.3 % Neutrophils # (Auto) 8.04 1.4-6.5 K/uL Lymphocytes # (Auto) 1.31 1.2-3.4 K/uL Monocytes # (Auto) 1.18 0.11-0.59 K/uL Eosinophils # (Auto) 0.08 0-0.5 K/uL Basophils # (Auto) 0.03 0-0.2 K/uL RDW Standard Deviation 47.9 36.4-46.3 fL RDW Coefficient of Variation 13.4 11.5-14.5 % Immature Granulocyte % (Auto) 0.2 % Immature Granulocyte # (Auto) 0.02 0.00-0.02 K/uL Activated Partial Thromboplast Time 24.7 21.0-31.0 SECONDS Partial Thromboplastin Ratio 1.0 Sodium Level 140 136-145 mmol/L Potassium Level 4.3 3.5-5.1 mmol/L Chloride Level 106 98-107 mmol/L Carbon Dioxide Level 29 21-32 mmol/L Anion Gap 5.0 3-11 mmol/L Blood Urea Nitrogen 28 7-18 mg/dl Creatinine 0.80 0.60-1.20 mg/dl Est Creatinine Clear Calc Drug Dose 48.8 ml/min Estimated GFR () 84.2 Estimated GFR (Non- 72.6 BUN/Creatinine Ratio 35.3 10-20 Random Glucose 224 70-99 mg/dl Calcium Level 8.9 8.5-10.1 mg/dl Magnesium Level 1.9 1.8-2.4 mg/dl 25-Hydroxy Vitamin D Total 13.0 30-100 ng/ml Bedside Glucose 223 276 252 70-90 mg/dl Test 07/14/16 20:31 07/14/16 23:00 07/15/16 05:40 07/15/16 05:58 Range/Units Bedside Glucose 348 185 70-90 mg/dl Sodium Level 138 138 136-145 mmol/L Potassium Level 5.0 4.6 3.5-5.1 mmol/L Chloride Level 104 104 98-107 mmol/L Carbon Dioxide Level 29 29 21-32 mmol/L Anion Gap 5.0 5.0 3-11 mmol/L Blood Urea Nitrogen 38 35 7-18 mg/dl Creatinine 1.10 0.90 0.60-1.20 mg/dl Est Creatinine Clear Calc Drug Dose 35.5 43.4 ml/min Estimated GFR () 57.3 73.0 Estimated GFR (Non- 49.4 63.0 BUN/Creatinine Ratio 34.8 38.4 10-20 Random Glucose 203 156 70-99 mg/dl Calcium Level 8.9 9.2 8.5-10.1 mg/dl Magnesium Level 1.9 1.8-2.4 mg/dl Hemoglobin 10.2 12.0-16.0 g/dL Hematocrit 31.8 37-47 % Prothrombin Time 11.7 9.0-12.0 SECONDS Prothromb Time International Ratio 1.1 0.9-1.1
[2016-07-15] VITALS (11 sets, daily range): BP systolic 99–151; BP diastolic 66–74; PULSE 64–101; TEMP 36.6–37.5; O2SAT 94–100
[2016-07-15] MEDS: SODIUM CHLORIDE 0.9% 1000ML 1,000 ML IV SCH ×2 (00:19→23:10)
[2016-07-15] MEDS ORDERED: NURSING VERBAL MED ORDER ONE ×2 (03:45→17:30)
[2016-07-15] MEDS: HYDROmorphone INJ 0.5 MG/0.5 ML SYR IV PRN (04:36)
[2016-07-15] MEDS: LEVOTHYROXINE 125 MCG TAB PO SCH (04:36)
[2016-07-15 05:54] LABS: HEMATOCRIT 31.8 % (37-47)
[2016-07-15 06:02] LABS: INR 1.1 (0.9-1.1); PROTHROMBIN TIME (PATIENT) 11.7 SECONDS (9.0-12.0)
[2016-07-15] MEDS: INSULIN ASPART 100 UNITS/ML 3 ML PEN SC SCH ×4 (06:04→20:35)
[2016-07-15 06:19] LABS: BUN/CREATININE RATIO 38.4 (10-20); CALCIUM 9.2 mg/dl (8.5-10.1); CREATININE 0.9 mg/dl (0.60-1.20); POTASSIUM 4.6 mmol/L (3.5-5.1)
[2016-07-15] MEDS ORDERED: BUPIVACAINE/EPINEPHRINE 0.5% MPF 1:200,000 30 ML VIAL ONE (07:05)
[2016-07-15] MEDS ORDERED: VANCOMYCIN HCL 1000MG/20ML VIAL ONE (07:05)
[2016-07-15] MEDS ORDERED: MIDAZOLAM HCL 1 MG/ML 2ML VIAL ONE (07:06)
[2016-07-15] MEDS ORDERED: FENTANYL CITRATE INJ 50 MCG/1 ML 2 ML VIAL ONE (07:06)
--- NOTE | 2016-07-15 07:29 | History & Physical Bridge Note ---
H&P Re-Evaluation Bridge Note: I have examined the patient, reviewed the History & Physical and in the interval since the performance of the History & Physical I have noted the following changes of clinical significance: No changes noted
[2016-07-15] MEDS ORDERED: ATROPINE SULFATE 0.1 MG/ML 5ML SYR IV PRN (07:30)
[2016-07-15] MEDS ORDERED: EpHEDrine SULFATE INJ 50 MG/ML AMP IV PRN (07:30)
[2016-07-15] MEDS ORDERED: FENTANYL CITRATE INJ 50 MCG/1 ML 2 ML VIAL IV PRN (07:30)
[2016-07-15] MEDS ORDERED: ONDANSETRON INJ 2 MG/ML 2 ML VIAL IV PRN (07:30)
[2016-07-15] MEDS ORDERED: LIDOCAINE HCL 2% 2 ML VIAL (20MG/ML) ONE (08:26)
[2016-07-15] MEDS ORDERED: PROPOFOL IV EMULSION 10 MG/ML 20 ML VIAL IV ONE (08:26)
[2016-07-15] MEDS ORDERED: PHENYLEPHRINE 100MCG/ML 5ML SYR ONE (08:26)
[2016-07-15] MEDS ORDERED: SPIRONOLACTONE 25 MG TAB PO SCH (09:00)
[2016-07-15] MEDS ORDERED: POTASSIUM CHLORIDE 10 MEQ TABCR PO SCH (09:00)
--- NOTE | 2016-07-15 09:39 | DIAGNOSTIC IMAGING REPORT ---
Intraoperative left hip 4 VIEWS CLINICAL HISTORY: Left hip fracture COMPARISON STUDY: CT scan dated 07/13/2016 FLUOROSCOPY TIME: 80 seconds. FINDINGS: There is been internal fixation of the patient's intertrochanteric left hip fracture with a femoral neck nail and interlocking intramedullary [place]. IMPRESSION: 4 fluoroscopic spot images demonstrate internal fixation of the patient's left intertrochanteric left hip fracture Electronically signed by: Josh Donis M.D. 07/15/2016 9:38 AM Dictated Date/Time: 07/15/2016 9:36 AM
--- NOTE | 2016-07-15 09:44 | [facility] Post Operative Brief Note ---
Immediate Operative Summary Operative Date Jul 15, 2016. Pre-Operative Diagnosis Intertrochanteric fracture of the left hip Post-Operative Diagnosis Same as preoperative diagnosis Procedure(s) Performed Intramedullary Jaspreet Femur, Left long Surgeon Dr. Terrance Bowen Top Tile Decorator Surgeon(s) Ian Brown PA-C Estimated Blood Loss 150 mL Findings comminuted femur fracture Specimens No pathology specimens per surgeon Complication(s) None Disposition Recovery Room / PACU
[2016-07-15] MEDS ORDERED: BISACODYL 10 MG SUPP PR PRN (10:00)
--- NOTE | 2016-07-15 10:07 | Anesthesiology Progress Note ---
Anesthesia Post Op Note Date & Time Jul 15, 2016 at 10:07 Vital Signs Pain Intensity: 0 Vital Signs Past 12 Hours Date Time Temp Pulse Resp B/P Pulse Ox O2 Delivery O2 Flow Rate FiO2 07/15/16 09:55 101 12 117/82 99 Mask 10 07/15/16 09:50 108 24 103/88 100 Mask 10 07/15/16 09:45 37.1 107 16 62/43 100 Mask 10 07/15/16 07:10 37.5 84 16 151/74 94 Room Air 07/14/16 23:55 Nasal Cannula 2.0 07/14/16 23:10 36.8 67 18 120/65 95 Nasal Cannula 2.0 Notes Mental Status: alert / awake / arousable, participated in evaluation Pt Amnestic to Procedure: Yes Nausea / Vomiting: adequately controlled Pain: adequately controlled Airway Patency, RR, SpO2: stable & adequate BP & HR: stable & adequate Hydration State: stable & adequate Neuraxial Anesthesia: was administered, sensory block is resolving Anesthetic Complications: no major complications apparent
[2016-07-15] MEDS: LOSARTAN POTASSIUM 50 MG TAB PO SCH (11:12)
[2016-07-15] MEDS: ATORVASTATIN 40 MG TAB PO SCH (11:13)
[2016-07-15] MEDS: METOPROLOL SUCC 50MG EXT REL TAB PO SCH ×2 (11:13→20:37)
[2016-07-15] MEDS: CALCIUM 600MG + VIT D 400 IU TAB PO SCH ×2 (11:13→20:38)
[2016-07-15] MEDS: ALLOPURINOL 300 MG TAB PO SCH (11:13)
[2016-07-15] MEDS: DILTIAZEM HCL 120 MG EXT REL CAP PO SCH (11:15)
[2016-07-15] MEDS: INSULIN GLARGINE SOLOSTAR 100 UNITS/ML 3 ML PEN SC SCH ×2 (11:17→20:39)
--- NOTE | 2016-07-15 12:36 | Cardiology Follow-Up ---
Subjective General Date of Service: Jul 15, 2016. Pt evaluation today including: conversation w/ patient, conversation w/ family , physical exam, chart review, lab review, review of studies, review of inpatient medication list History of Present Illness The patient is a 76 year old female seen in follow up. Intramedullary [place] left femur surgery performed by Dr. Bowen this morning. No complications reported. Patient feeling well post-op. Pain well controlled. present at bedside. Patient offers no complaints. Allergies Coded Allergies: Citalopram (Verified Allergy, Unknown, 10/29/15) Paroxetine (Verified Allergy, Unknown, 10/29/15) Sulfa Antibiotics (Verified Allergy, Unknown, TOLERATES LASIX, 10/29/15) Wasp Venom Protein (Verified Allergy, Unknown, HIVES, 10/29/15) Celecoxib (Verified Adverse Reaction, Mild, N/V, 03/03/12) Social History Smoking Status: Never Smoker Hx Tobacco Use In Past Year?: No Hx Alcohol Use - Type And Amou: No Hx Substance Use - Type And Am: No Problem List Medical Problems: (1) Hip fracture Status: Acute Review of Systems Respiratory: No cough, No dyspnea at rest, No dyspnea on exertion, No hemoptysis, No shortness of breath, No sputum, No wheezing Cardiac: No PND, No chest pain, No edema, No orthopnea, No palpitations Physical Exam Vital Signs Last Vital Signs Documentation Date Time Temp Pulse Resp B/P Pulse Ox O2 Delivery O2 Flow Rate FiO2 07/15/16 11:45 37.2 85 16 99/70 100 Nasal Cannula 2.0 Physical Exam Constitutional: General Apperance: well-nourished Level of Distress: NAD Head: normocephalic, atraumatic ENMT: normal ENT inspection Neck: supple, trachea midline Lungs: Auscultation: breath sounds normal, no wheezing, no rales/crackles, no rhonchi Cardiovascular: Heart Auscultation: normal S1, normal S2, I/ WSM, irregular rate rhythm Extremities: no cyanosis, no edema, no clubbing, no ulcers Neurologic: Cranial Nerves: grossly intact Assessment and Plan Assessment and Plan Imp: 1. POD #0 left hip surgery 2. Chronic atrial fibrillation with improved rate control and contraindications to chronic anticoagulation 3. Compensated heart failure with mild LV systolic dysfunction Plan/Recommendations: Continue current cardiovascular medications as previously ordered. ECG in AM. Consider restart diuretics in AM pending review of AM labs. PT as tolerated. Pain management per orthopedic surgery. Laboratory Results Last 24 Hours Test 07/14/16 16:52 07/14/16 20:31 07/14/16 23:00 07/15/16 05:40 Bedside Glucose 252 mg/dl 348 mg/dl Sodium Level 138 mmol/L 138 mmol/L Potassium Level 5.0 mmol/L 4.6 mmol/L Chloride Level 104 mmol/L 104 mmol/L Carbon Dioxide Level 29 mmol/L 29 mmol/L Anion Gap 5.0 mmol/L 5.0 mmol/L Blood Urea Nitrogen 38 mg/dl 35 mg/dl Creatinine 1.10 mg/dl 0.90 mg/dl Est Creatinine Clear Calc Drug Dose 35.5 ml/min 43.4 ml/min Estimated GFR () 57.3 73.0 Estimated GFR (Non- 49.4 63.0 BUN/Creatinine Ratio 34.8 38.4 Random Glucose 203 mg/dl 156 mg/dl Calcium Level 8.9 mg/dl 9.2 mg/dl Magnesium Level 1.9 mg/dl Hemoglobin 10.2 g/dL Hematocrit 31.8 % Prothrombin Time 11.7 SECONDS Prothromb Time International Ratio 1.1 Test 07/15/16 05:58 07/15/16 10:15 07/15/16 11:11 Bedside Glucose 185 mg/dl 155 mg/dl 124 mg/dl
[2016-07-15] MEDS: MoRPHine SULFATE 2 MG/ML CARP IV PRN (13:10)
[2016-07-15] MEDS ORDERED: CEFAZOLIN SOD 1 GM VIAL ONE (13:14)
--- NOTE | 2016-07-15 13:22 | CARDIOLOGY CONSULTATION ---
DATE OF CONSULTATION: 07/14/2016 REFERRING PHYSICIAN: Jean Pierre Lucia MD REASON FOR CONSULTATION: Preoperative evaluation, hip fracture. HISTORY OF PRESENT ILLNESS: Ms. Linton is a complex 76-year-old female, who is well known to the cardiology service. She presented to the Emergency Department last night with fall and constant severe hip pain. X-ray confirms possible nondisplaced, left side intertrochanteric hip fracture. CT of the hip was performed, confirming the presence of comminuted left intertrochanteric hip fracture with associated soft tissue injury. From a cardiovascular perspective, the patient has been feeling well. She was out in town, shopping on the day prior to her fall. Denies chest pain or unusual shortness of breath. No orthopnea, PND, or lower extremity edema. She was recently evaluated by Trey Trevino on 07/02/2016. At that time she was noted to be mildly volume overloaded with weight gain and fatigue. The patient's diuretics were increased for 5 days. The patient noted subsequent 3-pound weight loss and improvement in symptoms. She has been doing well since that time. She was noted to be tachycardic on exam. She carries a history of persistent atrial fibrillation with difficult to control heart rates. She had a partial modified AV junction ablation in September of 2014. She has been maintained on multiple medications listed below. Her pulse rate was 100 beats per minute during her most recent office visit. She is unaware of any tachy palpitations. Denies lightheadedness, dizziness, syncope or near syncope. She also has a history of [id number] LV systolic function with her most recent echocardiogram performed in November 2015, demonstrating ejection fraction of 35-39% with moderate mixed valvular heart disease. REVIEW OF SYSTEMS: Significant for left hip pain, chronic dyspnea on exertion, ambulatory dysfunction requiring the use of a walker. Pertinent positives are otherwise noted in the HPI, a 10-system review is otherwise negative. PAST MEDICAL HISTORY: 1. Symptomatic poorly tolerated paroxysmal atrial fibrillation with rapid ventricular response, status post multiple cardioversions with the most recent being February 2014. 2. Now chronic persistent atrial fibrillation with difficult to control heart rates and intolerance to sotalol and Tikosyn. Amiodarone failed to maintain sinus rhythm in the past. 3. Tachybrady syndrome, status post dual-chamber pacemaker placement on 10/18/2009. 4. Contraindications to anticoagulation secondary to frequent falls, large rectus sheath hematoma with extraperitoneal pelvic blood and subarachnoid hemorrhage in 2009. 5. Chronic systolic and diastolic congestive heart failure. 6. Hypertensive heart disease. 7. Drug induced valvular pathology. 8. Type 2 diabetes. 9. Anxiety disorder. 10. Dyslipidemia. 11. Obesity. 12. Hypothyroidism. 13. GERD. 14. Iron deficiency anemia. 15. Gout. 16. Chronic back pain. 17. Vitamin D deficiency. 18. Nephrolithiasis. 19. Osteoarthritis. 20. Osteoporosis. PAST SURGICAL HISTORY: 1. September 2014 partial modified AV junction ablation at [facility]. 2. Multiple cardioversions, most recent in February 2014. 3. Appendectomy. 4. Cholecystectomy. 5. Hysterectomy. 6. Vena cava filter placement. 7. Breast biopsy. 8. Cataract extraction. 9. Removal of lumbar synovial cyst. 10. Achilles tendon repair. FAMILY HISTORY: Mother of pancreatic cancer at age 64. Father with CAD. She has a daughter with breast cancer. SOCIAL HISTORY: She is a nonsmoker, does not use alcohol. She is , lives with her , [place]. ALLERGIES: 1. CELEBREX. 2. SULFA. 3. BEE VENOM. 4. ASPIRIN. CURRENT OUTPATIENT MEDICATIONS: 1. Lantus 10 units subQ in the a.m. 2. Digoxin 125 mcg daily. 3. Amoxicillin 2 grams prior to procedures. 4. Insulin aspart 8 units in the a.m., 8 units at lunch, 10 units at night. 5. Lasix 20 mg daily. 6. Aldactone 25 mg daily. 7. Toprol-XL 200 mg in the a.m., 100 mg in the evening. 8. Lantus 45 units in the a.m. 9. Losartan 50 mg daily. 10. Ativan 0.5 mg as needed. 11. Cardizem CD 180 mg daily. 12. Gabapentin 200 mg at bedtime. 13. Synthroid 75 mcg daily. 14. Allopurinol 150 mg daily. 15. EpiPen as needed. 16. Claritin 10 mg as needed. 17. Magnesium oxide 400 mg daily. ECG on admission is atrial fibrillation with rapid ventricular response and left bundle branch block. Previous ECGs have demonstrated intermittent incomplete left bundle branch block as well as left bundle branch block in the past. LABORATORY DATA: White blood cell count 10.66, hemoglobin is 11.2, platelet count is 133. Sodium is 140, potassium 4.3, chloride 106, CO2 is 23, BUN is 28, creatinine is 0.80, glucose is 224, magnesium is 1.9. Digoxin 0.9. Chest x-ray on admission: Mild pulmonary vascular congestion with cardiomegaly, hiatal hernia. PHYSICAL EXAMINATION: VITAL SIGNS: Temperature is 36.9 degrees centigrade, pulse is 100 beats per minute and irregular, respiratory rate 16 breaths per minute, blood pressure 127/73, her SaO2 is 94% on 2 liters nasal cannula. GENERAL: NAD, awake, alert and oriented x3. HEENT: Her mucous membranes are moist. No scleral icterus. The conjunctivae are pink. NECK: Supple without JVD or HJR. There is no carotid bruit. HEART: Irregular and tachycardic with a normal S1 and S2. There is a soft 2/6 holosystolic murmur heard best at the left ventricular apex. LUNGS: Demonstrate diminished breath sounds at the left base. No rhonchi or wheeze. ABDOMEN: Soft, nontender. No rebound or guarding. Normal bowel sounds. EXTREMITIES: Demonstrate trace pedal edema. NEUROLOGIC: Demonstrates no focal motor deficit. FINAL IMPRESSION: 1. A 76-year-old female, considered moderate to high perioperative cardiovascular risk for orthopedic surgery due to multiple cardiovascular issues listed below. She appears compensated from a heart failure perspective, although heart rate remains chronically elevated. 2. Chronic heart failure secondary to systolic dysfunction, diastolic dysfunction, mixed valvular heart disease, chronic atrial fibrillation with borderline rate control. 3. Persistent, likely permanent atrial fibrillation with mildly elevated ventricular response -- chronic issue with history of partial/modified atrioventricular junction ablation in 2015. Previous drug intolerances as noted above. 4. Moderate left ventricular systolic dysfunction with recent ejection fraction 35-39%. 5. Contraindications to chronic anticoagulation as noted above. 6. Elevated blood pressure. PLAN AND RECOMMENDATIONS: I had a long discussion with the patient regarding her cardiovascular risk in the perioperative setting. I will increase her diltiazem to 240 mg daily and attempt to improve heart rate control, although this has been a chronic issue and her heart rates have not significantly changed over the past 12 months. She appears compensated from a heart failure perspective. We will continue her current doses of diuretic therapy. I will repeat a resting 2D transthoracic echo to assess LV systolic function as well as moderate mixed valvular heart disease. Despite findings on her echocardiogram, there is likely no further cardiovascular intervention, which would lower her overall perioperative risk at this time. The patient voiced understanding. A repeat ECG has been ordered for today. We will continue to follow closely during hospitalization. MAGDALENA
[2016-07-15] MEDS: OXYCODONE/ACETAMINOPHEN 5-325 TAB PO PRN ×2 (14:12→23:53)
[2016-07-15] MEDS: CEFAZOLIN IV 1,000 MG in DEXTROSE 5% 50ML 50 ML IV SCH ×2 (16:09→23:52)
[2016-07-15] MEDS: DIGOXIN 0.125 MG TAB PO SCH (16:11)
--- NOTE | 2016-07-15 17:45 | Progress Note ---
Internal Med Progress Note Date of Service: Jul 15, 2016. Provider Documentation: SUBJECTIVE: Patient is seen and examined at bedside. Patient states having left hip pain at surgical site otherwise doing well. Patient had surgery to left hip this morning. Denies any chest pain, SOB. Offers no other complaints. OBJECTIVE: Vital Signs-as noted below Physical Exam: General Appearance:Thin, fragile, no apparent distress Head: normocephalic, Atraumatic Eyes: normal inspection, EOMI, PERRL Neck: supple, Trachea midline Respiratory/Chest: Normal breath sounds, minimal creps at bases Cardiovascular: S1, S2, + systolic murmur Abdomen/GI:Soft, Non tender, Bowel sounds present Extremities/Musculoskelatal:normal inspection, no edema, +tender left hip in surgical bandage Neurologic/Psych:AAOX3, grossly no focal neurological deficits Skin: normal color, warm Lab data as noted below. ASSESSMENT & PLAN: Intertrochanteric fracture of Left hip: Secondary to mechanical fall Intramedullary [place] to left hip: POD #0 Could have underlying osteoporosis Pain control Appreciate Orthopedic surgery help Bowel regimen to prevent constipation Hypertensive urgency: Likely secondary to pain, missed meds Resolved Continue current meds Continue to monitor UTI: Urine culture:Klebsiella pneumoniae Continue IV Ceftriaxone Vit D deficiency: Continue Calcium, Vit D supplements Vit D levels:13.0 SSS S/P PPM H/O Afib H/O partial modified AVJ ablation at [facility] Off anticoagulation because of fall risk and multiple bleeding events in the past Continue Digoxin, Cardizem, BB per cardiology Appreciate Cardiology input H/O Intracranial hemorrhage/Rectus sheath hematoma S/P IVC filter Stable Denies head trauma during fall this encounter Monitor Hb DM II: Stable ISS, Lantus, Accu checks Chronic systolic heart failure: Last EF 35% Improved CHF currently after last outpatient G Cardiology visit 2 weeks ago w / additional diuretic dosing Continue digoxin Plan to resume diuretics tomorrow: lasix, spironolactone Cardiology following Chronic thrombocytopenia: No active bleeding Monitor H/O Fibromyalgia: Stable DVT Px: SCDs, Reason: H/O ICH, thrombocytopenia CODE STATUS: Full code DISPOSITION: Continue to monitor PROCEDURES ECHO: * Left ventricular systolic function is mildly reduced. * Ejection Fraction = 40-45%. * There is moderate concentric left ventricular hypertrophy. * Septal motion is consistent with conduction abnormality. * Otherwise, mild global hypokinesis. * There is mild to moderate tricuspid regurgitation. Vital Signs: Date Time Temp Pulse Resp B/P Pulse Ox O2 Delivery O2 Flow Rate FiO2 07/15/16 16:11 71 07/15/16 16:00 99 Nasal Cannula 4.0 07/15/16 14:56 36.8 71 18 128/68 99 Nasal Cannula 4.0 07/15/16 13:45 36.8 76 16 111/66 95 Nasal Cannula 2.0 07/15/16 12:52 75 16 130/74 99 3.0 07/15/16 11:45 37.2 85 16 99/70 100 Nasal Cannula 2.0 07/15/16 11:15 36.6 101 16 129/66 95 Nasal Cannula 2.0 07/15/16 11:00 94 Nasal Cannula 2.0 07/15/16 10:56 37.0 89 16 120/69 94 Nasal Cannula 2.0 07/15/16 10:45 93 Nasal Cannula 2.0 07/15/16 10:25 37.5 91 16 108/81 97 Nasal Cannula 2 07/15/16 10:15 106 18 120/59 96 Nasal Cannula 2 07/15/16 10:05 97 16 109/87 98 Nasal Cannula 2 07/15/16 09:55 101 12 117/82 99 Mask 10 07/15/16 09:50 108 24 103/88 100 Mask 10 07/15/16 09:45 37.1 107 16 62/43 100 Mask 10 07/15/16 07:10 37.5 84 16 151/74 94 Room Air 07/14/16 23:55 Nasal Cannula 2.0 07/14/16 23:10 36.8 67 18 120/65 95 Nasal Cannula 2.0 Lab Results: Results Past 24 Hours Test 07/14/16 20:31 07/14/16 23:00 07/15/16 05:40 07/15/16 05:58 Range/Units Bedside Glucose 348 185 70-90 mg/dl Sodium Level 138 138 136-145 mmol/L Potassium Level 5.0 4.6 3.5-5.1 mmol/L Chloride Level 104 104 98-107 mmol/L Carbon Dioxide Level 29 29 21-32 mmol/L Anion Gap 5.0 5.0 3-11 mmol/L Blood Urea Nitrogen 38 35 7-18 mg/dl Creatinine 1.10 0.90 0.60-1.20 mg/dl Est Creatinine Clear Calc Drug Dose 35.5 43.4 ml/min Estimated GFR () 57.3 73.0 Estimated GFR (Non- 49.4 63.0 BUN/Creatinine Ratio 34.8 38.4 10-20 Random Glucose 203 156 70-99 mg/dl Calcium Level 8.9 9.2 8.5-10.1 mg/dl Magnesium Level 1.9 1.8-2.4 mg/dl Hemoglobin 10.2 12.0-16.0 g/dL Hematocrit 31.8 37-47 % Prothrombin Time 11.7 9.0-12.0 SECONDS Prothromb Time International Ratio 1.1 0.9-1.1 Test 07/15/16 10:15 07/15/16 11:11 07/15/16 16:56 Range/Units Bedside Glucose 155 124 215 70-90 mg/dl
[2016-07-15] MEDS: CEFTRIAXONE SOD INJ 1 GM in DEXTROSE 5% ADD-VANTAGE 50ML 50 ML IV SCH (18:45)
[2016-07-15] MEDS: GABAPENTIN 100 MG CAP PO SCH (20:38)
[2016-07-15] MEDS: SENNA 8.6 MG TAB PO SCH (20:40)
[2016-07-16] VITALS (12 sets, daily range): BP systolic 114–153; BP diastolic 67–70; PULSE 65–100; TEMP 36.6–37.2; O2SAT 74–100
[2016-07-16] MEDS: LEVOTHYROXINE 125 MCG TAB PO SCH (05:16)
[2016-07-16] MEDS: OXYCODONE/ACETAMINOPHEN 5-325 TAB PO PRN ×2 (05:40→11:57)
[2016-07-16 06:48] LABS: HEMATOCRIT 25.6 % (37-47); MEAN CELL VOLUME 96.6 fL (80-100); MEAN CORPUSCULAR HEMOGLOBIN 31.7 pg (25-34); MEAN CORPUSCULAR HGB CONC 32.8 g/dl (32-36); MEAN PLATELET VOLUME 9.4 fL (7.4-10.4); PLATELET COUNT 122 K/uL (130-400); RED BLOOD COUNT 2.65 M/uL (4.2-5.4); WHITE BLOOD COUNT 11.11 K/uL (4.8-10.8)
[2016-07-16 07:22] LABS: CALCIUM 9.2 mg/dl (8.5-10.1); CREATININE 0.8 mg/dl (0.60-1.20); POTASSIUM 4.2 mmol/L (3.5-5.1)
--- NOTE | 2016-07-16 07:48 | OPERATIVE REPORT ---
DATE OF OPERATION: 07/15/2016 PREOPERATIVE DIAGNOSIS: Intertrochanteric fracture of the left hip. POSTOPERATIVE DIAGNOSIS: Intertrochanteric comminuted fracture, left hip. SURGEON: Dr. Bowen. BIOMEDICAL TECHNICIAN: STEVEN Duarte. PROCEDURE: Included a long IM nailing of the left femur. COMPLICATIONS: Zero. BLOOD LOSS: 150. ANESTHETIC: Spinal. DESCRIPTION OF PROCEDURE: The patient was taken to the surgical suite, successful spinal anesthetic provided to the patient, placed up on the fracture table. Provisional longitudinal traction placed to the femur, where we had near anatomic reduction on AP and lateral radiographs. We then scrubbed with Betadine, prepped with ChloraPrep and draped her sterile. We made a skin incision and fascia incision. We were able to engage the greater trochanter at the tip with a Steinmann pin running proximal to distal. We reamed up to a size 12, put in a size 11 nail 360 mm in length, locked proximally and then distally. We were pleased with the reduction and the fixation. Then we irrigated and closed in layers with #1 Vicryl, 2-0 and staple gun. Sterile dressings applied on the wound. She was safely returned to her own bed and to PACU stable without complication. I attest to the content of the Intraoperative Record and any orders documented therein. Any exceptio ns are noted below.
[2016-07-16] MEDS: CEFAZOLIN IV 1,000 MG in DEXTROSE 5% 50ML 50 ML IV SCH (08:10)
[2016-07-16] MEDS: ALLOPURINOL 300 MG TAB PO SCH (08:10)
[2016-07-16] MEDS: PANTOprazole SOD 40 MG TAB PO SCH (08:11)
[2016-07-16] MEDS: ATORVASTATIN 40 MG TAB PO SCH (08:12)
[2016-07-16] MEDS: METOPROLOL SUCC 50MG EXT REL TAB PO SCH ×2 (08:12→21:04)
[2016-07-16] MEDS: LOSARTAN POTASSIUM 50 MG TAB PO SCH (08:12)
[2016-07-16] MEDS: DILTIAZEM HCL 120 MG EXT REL CAP PO SCH (08:12)
[2016-07-16] MEDS: CALCIUM 600MG + VIT D 400 IU TAB PO SCH ×2 (08:13→21:04)
[2016-07-16] MEDS: INSULIN ASPART 100 UNITS/ML 3 ML PEN SC SCH ×4 (09:00→20:53)
[2016-07-16] MEDS: INSULIN GLARGINE SOLOSTAR 100 UNITS/ML 3 ML PEN SC SCH ×2 (09:01→21:05)
--- NOTE | 2016-07-16 09:38 | Cardiology Follow-Up ---
Subjective General Date of Service: Jul 16, 2016. Chief Complaint: POD#1 Pt evaluation today including: conversation w/ patient, physical exam, chart review, lab review, review of studies, review of inpatient medication list History of Present Illness Patient seen and examined. Status post 07/13/2016 mechanical fall, resultant intertrochanteric comminuted fracture of the left hip Status post 07/15/[address] Bowen, IM nailing of the left femur. About to participate in bedside therapy. SP02 was 70% upon entering the room, 94 % when moved to another finger. No complaints. No reported chest pain, dyspnea, or palpitations. Ate well this morning Hgb 8.4 g/dL. Sodium 133 mmol/L Furosemide and spironolactone held. Nonmonitored bed. July 14, 2016 TTE Interpretation Summary ([facility], Dr. Robertson): Left ventricular systolic function is mildly reduced. Ejection Fraction = 40-45%. There is moderate concentric left ventricular hypertrophy. Septal motion is consistent with conduction abnormality. Otherwise, mild global hypokinesis. There is mild to moderate tricuspid regurgitation. Allergies Coded Allergies: Citalopram (Verified Allergy, Unknown, 10/29/15) Paroxetine (Verified Allergy, Unknown, 10/29/15) Sulfa Antibiotics (Verified Allergy, Unknown, TOLERATES LASIX, 10/29/15) Wasp Venom Protein (Verified Allergy, Unknown, HIVES, 10/29/15) Celecoxib (Verified Adverse Reaction, Mild, N/V, 03/03/12) Social History Smoking Status: Never Smoker Hx Tobacco Use In Past Year?: No Hx Alcohol Use - Type And Amou: No Hx Substance Use - Type And Am: No Problem List Medical Problems: (1) Hip fracture Status: Acute Review of Systems Respiratory: No cough, No dyspnea at rest, No dyspnea on exertion, No hemoptysis, No shortness of breath, No sputum, No wheezing Cardiac: No PND, No chest pain, No claudication, No edema, No orthopnea, No palpitations Physical Exam Vital Signs Last Vital Signs Documentation Date Time Temp Pulse Resp B/P Pulse Ox O2 Delivery O2 Flow Rate FiO2 07/16/16 08:41 93 Room Air 07/16/16 08:01 37.2 98 18 132/70 07/16/16 05:16 2.0 Physical Exam Constitutional: General Apperance: well-nourished Level of Distress: NAD Psychiatric: Mental Status: active & alert Orientation: to time, to place, to person Memory: recent memory normal, remote memory normal Head: normocephalic, atraumatic ENMT: normal ENT inspection Neck: supple, trachea midline Lungs: Auscultation: no wheezing, deminished air movement, decreased breath sounds , rales/crackles on the right Cardiovascular: Heart Auscultation: tachycardia, I/ WSM, irregular rate rhythm Abdomen: Bowel Sounds: normal Extremities: no edema Neurologic: Cranial Nerves: grossly intact Assessment and Plan Assessment and Plan POD #1, 07/15/2016 IM nailing of the left femur following a mechanical fall Chronic atrial fibrillation. Rate relatively well controlled. Contraindications to anticoagulation Systolic and diastolic congestive heart failure. Compensated by history and examination. RECOMMENDATIONS: Follow H&H. Possible need for transfusion of PRBC's briefly discussed. Check portable chest x-ray Restart furosemide (20 mg/day) and spironolactone (25 mg/day) Pain management as per Orthopedics. Cardiology Attending Physician: Patient seen and examined at the bedside. She is feeling well from a cardiovascular perspective. Denies CP or SOB. No palpitations. PE: VSS. Gen: NAD, AAO x3. Heart: Irregular. Normal S1S2, 1/6 holosystolic murmur heard best at the apex. Lungs: clear B/L, No RRW. Ext: No edema. A/P: Agree with above PA-C history, physical exam, assessment and plan. Restart lasix and aldactone today. Follow H/H. PT as tolerated. Gibran Roebrtson DO, [facility] Laboratory Results Last 24 Hours Test 07/15/16 10:15 07/15/16 11:11 07/15/16 16:56 07/15/16 20:33 Bedside Glucose 155 mg/dl 124 mg/dl 215 mg/dl 172 mg/dl Test 07/16/16 05:56 07/16/16 07:57 White Blood Count 11.11 K/uL Red Blood Count 2.65 M/uL Hemoglobin 8.4 g/dL Hematocrit 25.6 % Mean Corpuscular Volume 96.6 fL Mean Corpuscular Hemoglobin 31.7 pg Mean Corpuscular Hemoglobin Concent 32.8 g/dl RDW Standard Deviation 47.7 fL RDW Coefficient of Variation 13.6 % Platelet Count 122 K/uL Mean Platelet Volume 9.4 fL Sodium Level 133 mmol/L Potassium Level 4.2 mmol/L Chloride Level 101 mmol/L Carbon Dioxide Level 23 mmol/L Anion Gap 9.0 mmol/L Blood Urea Nitrogen 30 mg/dl Creatinine 0.80 mg/dl Est Creatinine Clear Calc Drug Dose 48.8 ml/min Estimated GFR () 84.2 Estimated GFR (Non- 72.6 BUN/Creatinine Ratio 37.0 Random Glucose 147 mg/dl Calcium Level 9.2 mg/dl Bedside Glucose 188 mg/dl
--- NOTE | 2016-07-16 10:44 | DIAGNOSTIC IMAGING REPORT ---
CHEST ONE VIEW PORTABLE CLINICAL HISTORY: hypoxemia dyspnea COMPARISON STUDY: 07/14/2016 FINDINGS: Mild decrease in cardiac size. Fixed lateral hernia unchanged. Improved prominence of pulmonary vasculature. IMPRESSION: Improved exam with near complete resolution of findings of mild congestive failure Electronically signed by: Trey Carver M.D. 07/16/2016 10:42 AM Dictated Date/Time: 07/16/2016 10:41 AM
[2016-07-16] MEDS ORDERED: SPIRONOLACTONE 25 MG TAB PO ONE (11:00)
--- NOTE | 2016-07-16 15:13 | PROGRESS NOTE ---
DATE: 07/16/2016 SUBJECTIVE: Moderate complaints of pain. Alert, oriented, sleeping in the early evening. Alert, oriented in the morning. 36.8 temperature, blood pressure stable, pulse 100, afebrile. 8.4 hemoglobin. ASSESSMENT: Status post IM rodding of the left femur fracture. DISPOSITION: Includes continue support today. Dressings changed tomorrow. Check her lab work again tomorrow. We are [facility] going [facility] and I would estimate her going to [facility] on the 18 of July. She will be touch weightbearing on the left.
--- NOTE | 2016-07-16 16:14 | PROGRESS NOTE ---
DATE: 07/16/2016 SUBJECTIVE: Seen on rounds at approximately 3:00 on Saturday the 16 of July. She is improved. She is stable. She is alert, a little bit somnolent. Pain is controlled. No shortness of breath. ASSESSMENT: Status post intramedullary rodding of the femur, doing well short run. DISPOSITION: Includes instructions, precautions. We will get her up on her feet tomorrow, the 4th, hopefully to [facility] by the fit. I will keep her protected on her left lower extremity, touch ____ 50%, for about 6 weeks.
--- NOTE | 2016-07-16 16:48 | Progress Note ---
Internal Med Progress Note Date of Service: Jul 16, 2016. Provider Documentation: SUBJECTIVE: Patient is seen and examined at bedside. States hip pain is controlled. + Flatus , No BM yet. Denies any chest pain, SOB. Offers no other complaints. Denies any obvious source of bleeding OBJECTIVE: Vital Signs-as noted below Physical Exam: General Appearance:Thin, fragile, no apparent distress Head: normocephalic, Atraumatic Eyes: normal inspection, EOMI, PERRL Neck: supple, Trachea midline Respiratory/Chest: Normal breath sounds, minimal creps at bases Cardiovascular: S1, S2, + systolic murmur Abdomen/GI:Soft, Non tender, Bowel sounds present Extremities/Musculoskelatal:normal inspection, no edema, +tender left hip in surgical bandage Neurologic/Psych:AAOX3, grossly no focal neurological deficits Skin: normal color, warm Lab data as noted below. ASSESSMENT & PLAN: Intertrochanteric fracture of Left hip: Secondary to mechanical fall Intramedullary [place] to left hip: POD #1 Could have underlying osteoporosis Pain control Appreciate Orthopedic surgery help Bowel regimen to prevent constipation Monitor for post OP anemia. Hb:8.4 Hypertensive urgency: Likely secondary to pain, missed meds Resolved Continue current meds Continue to monitor UTI: Urine culture:Klebsiella pneumoniae Continue IV Ceftriaxone Vit D deficiency: Continue Calcium, Vit D supplements Vit D levels:13.0 SSS S/P PPM H/O Afib H/O partial modified AVJ ablation at [facility] Off anticoagulation because of fall risk and multiple bleeding events in the past Continue Digoxin, Cardizem, BB Appreciate Cardiology input H/O Intracranial hemorrhage/Rectus sheath hematoma S/P IVC filter Stable Denies head trauma during fall this encounter Monitor Hb:8.4 today Monitor H&H Transfuse PRBCs PRN if Hb continues to drop DM II: Stable ISS, Lantus, Accu checks Chronic systolic heart failure: Last EF 35% Improved CHF currently after last outpatient G Cardiology visit 2 weeks ago w / additional diuretic dosing Continue digoxin Resume diuretics lasix, spironolactone today per cardiology Cardiology following Chronic thrombocytopenia: Stable Monitor H/O Fibromyalgia: Stable DVT Px: SCDs, Reason: H/O ICH, thrombocytopenia CODE STATUS: Full code DISPOSITION: Continue to monitor PROCEDURES ECHO: * Left ventricular systolic function is mildly reduced. * Ejection Fraction = 40-45%. * There is moderate concentric left ventricular hypertrophy. * Septal motion is consistent with conduction abnormality. * Otherwise, mild global hypokinesis. * There is mild to moderate tricuspid regurgitation. Vital Signs: Date Time Temp Pulse Resp B/P Pulse Ox O2 Delivery O2 Flow Rate FiO2 07/16/16 13:26 100 2.0 07/16/16 11:20 17 100 Nasal Cannula 2.0 07/16/16 11:09 36.8 71 16 119/67 88 Nasal Cannula 2.5 07/16/16 09:25 100 74 07/16/16 08:41 93 Room Air 07/16/16 08:01 37.2 98 18 132/70 93 Room Air 07/16/16 08:00 93 Room Air 07/16/16 05:16 93 Nasal Cannula 2.0 07/16/16 03:40 37.1 89 18 153/69 93 Nasal Cannula 4.0 07/15/16 23:40 Nasal Cannula 4.0 07/15/16 23:20 37.0 68 18 149/68 96 Nasal Cannula 4.0 07/15/16 19:57 36.7 64 18 138/74 94 Nasal Cannula 4.0 Lab Results: Results Past 24 Hours Test 07/15/16 20:33 07/16/16 05:56 07/16/16 07:57 07/16/16 11:16 Range/Units Bedside Glucose 172 188 185 70-90 mg/dl White Blood Count 11.11 4.8-10.8 K/uL Red Blood Count 2.65 4.2-5.4 M/uL Hemoglobin 8.4 12.0-16.0 g/dL Hematocrit 25.6 37-47 % Mean Corpuscular Volume 96.6 80-100 fL Mean Corpuscular Hemoglobin 31.7 25-34 pg Mean Corpuscular Hemoglobin Concent 32.8 32-36 g/dl RDW Standard Deviation 47.7 36.4-46.3 fL RDW Coefficient of Variation 13.6 11.5-14.5 % Platelet Count 122 130-400 K/uL Mean Platelet Volume 9.4 7.4-10.4 fL Sodium Level 133 136-145 mmol/L Potassium Level 4.2 3.5-5.1 mmol/L Chloride Level 101 98-107 mmol/L Carbon Dioxide Level 23 21-32 mmol/L Anion Gap 9.0 3-11 mmol/L Blood Urea Nitrogen 30 7-18 mg/dl Creatinine 0.80 0.60-1.20 mg/dl Est Creatinine Clear Calc Drug Dose 48.8 ml/min Estimated GFR () 84.2 Estimated GFR (Non- 72.6 BUN/Creatinine Ratio 37.0 10-20 Random Glucose 147 70-99 mg/dl Calcium Level 9.2 8.5-10.1 mg/dl
[2016-07-16] MEDS: DIGOXIN 0.125 MG TAB PO SCH (17:07)
[2016-07-16 19:10] LABS: HEMATOCRIT 24.9 % (37-47)
[2016-07-16] MEDS: CEFTRIAXONE SOD INJ 1 GM in DEXTROSE 5% ADD-VANTAGE 50ML 50 ML IV SCH (19:40)
[2016-07-16] MEDS: GABAPENTIN 100 MG CAP PO SCH (21:04)
[2016-07-16] MEDS: SENNA 8.6 MG TAB PO SCH (21:04)
[2016-07-16 23:01] LABS: BUN/CREATININE RATIO 34.3 (10-20); CALCIUM 9.1 mg/dl (8.5-10.1); CREATININE 1.2 mg/dl (0.60-1.20); MAGNESIUM 1.9 mg/dl (1.8-2.4); POTASSIUM 4.8 mmol/L (3.5-5.1)
[2016-07-16] MEDS: SODIUM CHLORIDE 0.9% 1000ML 1,000 ML IV SCH (23:18)
[2016-07-17] VITALS (8 sets, daily range): BP systolic 114–156; BP diastolic 61–83; PULSE 60–101; TEMP 36.5–37.4; O2SAT 82–100
[2016-07-17] MEDS ORDERED: SODIUM CHLORIDE 0.9% 500ML 500 ML IV ONE (01:15)
[2016-07-17] MEDS: LEVOTHYROXINE 125 MCG TAB PO SCH (05:22)
[2016-07-17 07:15] LABS: BASO % 0.3 %; BASO ABS # 0.03 K/uL (0-0.2); EOS % 0.8 %; HEMATOCRIT 24.4 % (37-47); IG% 0.2 %; LYMPH % 11.9 %; LYMPH ABS # 1.27 K/uL (1.2-3.4); MEAN CELL VOLUME 96.4 fL (80-100); MEAN CORPUSCULAR HEMOGLOBIN 32.4 pg (25-34); MEAN CORPUSCULAR HGB CONC 33.6 g/dl (32-36); MEAN PLATELET VOLUME 9.7 fL (7.4-10.4); MONO % 12.9 %; NEUT % 73.9 %; PLATELET COUNT 116 K/uL (130-400); RED BLOOD COUNT 2.53 M/uL (4.2-5.4); WHITE BLOOD COUNT 10.63 K/uL (4.8-10.8)
[2016-07-17 07:52] LABS: BUN/CREATININE RATIO 40.6 (10-20); CALCIUM 9.4 mg/dl (8.5-10.1); CREATININE 0.96 mg/dl (0.60-1.20); POTASSIUM 4.5 mmol/L (3.5-5.1)
[2016-07-17 07:53] LABS: COMPLETE YES
[2016-07-17] MEDS: LOSARTAN POTASSIUM 50 MG TAB PO SCH (08:29)
[2016-07-17] MEDS: DILTIAZEM HCL 120 MG EXT REL CAP PO SCH (08:30)
[2016-07-17] MEDS: ATORVASTATIN 40 MG TAB PO SCH (08:31)
[2016-07-17] MEDS: CALCIUM 600MG + VIT D 400 IU TAB PO SCH ×2 (08:32→21:25)
[2016-07-17] MEDS: ALLOPURINOL 300 MG TAB PO SCH (08:33)
[2016-07-17] MEDS: METOPROLOL SUCC 50MG EXT REL TAB PO SCH ×2 (08:34→21:23)
[2016-07-17] MEDS: PANTOprazole SOD 40 MG TAB PO SCH ×2 (08:35→08:42)
[2016-07-17] MEDS: HYDROCODONE/ACETAMOPHEN 5/325MG TAB PO PRN ×3 (08:45→21:31)
[2016-07-17] MEDS ORDERED: SPIRONOLACTONE 25 MG TAB PO SCH (09:00)
[2016-07-17] MEDS: INSULIN ASPART 100 UNITS/ML 3 ML PEN SC SCH ×4 (09:08→21:00)
[2016-07-17] MEDS: INSULIN GLARGINE SOLOSTAR 100 UNITS/ML 3 ML PEN SC SCH ×2 (09:09→21:26)
[2016-07-17 09:38] LABS: TOTAL IRON BINDING CAPACITY 556 mcg/dl (250-450)
--- NOTE | 2016-07-17 09:41 | Progress Note ---
Internal Med Progress Note Date of Service: Jul 17, 2016. Provider Documentation: LATE ENTRY: Made aware by RN of low urine output last night. increased serum crea on repeat labwork last night. IVF hold home diuretics for now Will relay to AM provider. Vital Signs: Date Time Temp Pulse Resp B/P Pulse Ox O2 Delivery O2 Flow Rate FiO2 07/17/16 08:13 36.9 101 18 156/68 94 Room Air 07/17/16 07:45 94 Room Air 07/17/16 07:41 37.4 90 18 133/83 100 Room Air 07/16/16 23:15 Nasal Cannula 2.0 07/16/16 22:55 37.2 80 16 115/69 94 Nasal Cannula 2.0 07/16/16 17:09 36.6 65 18 124/67 92 Nasal Cannula 2.0 07/16/16 17:07 65 07/16/16 16:00 92 Nasal Cannula 2.0 07/16/16 13:26 100 2.0 07/16/16 11:20 17 100 Nasal Cannula 2.0 07/16/16 11:09 36.8 71 16 119/67 88 Nasal Cannula 2.5 Lab Results: Results Past 24 Hours Test 07/16/16 11:16 07/16/16 17:07 07/16/16 19:00 07/16/16 20:33 Range/Units Bedside Glucose 185 166 146 70-90 mg/dl Hemoglobin 8.4 12.0-16.0 g/dL Hematocrit 24.9 37-47 % Test 07/16/16 22:30 07/17/16 06:56 07/17/16 07:32 Range/Units Sodium Level 133 132 136-145 mmol/L Potassium Level 4.8 4.5 3.5-5.1 mmol/L Chloride Level 97 101 98-107 mmol/L Carbon Dioxide Level 28 21 21-32 mmol/L Anion Gap 8.0 10.0 3-11 mmol/L Blood Urea Nitrogen 41 39 7-18 mg/dl Creatinine 1.20 0.96 0.60-1.20 mg/dl Est Creatinine Clear Calc Drug Dose 32.5 40.7 ml/min Estimated GFR () 51.6 67.5 Estimated GFR (Non- 44.5 58.3 BUN/Creatinine Ratio 34.3 40.6 10-20 Random Glucose 151 121 70-99 mg/dl Calcium Level 9.1 9.4 8.5-10.1 mg/dl Magnesium Level 1.9 1.8-2.4 mg/dl White Blood Count 10.63 4.8-10.8 K/uL Red Blood Count 2.53 4.2-5.4 M/uL Hemoglobin 8.2 12.0-16.0 g/dL Hematocrit 24.4 37-47 % Mean Corpuscular Volume 96.4 80-100 fL Mean Corpuscular Hemoglobin 32.4 25-34 pg Mean Corpuscular Hemoglobin Concent 33.6 32-36 g/dl Platelet Count 116 130-400 K/uL Mean Platelet Volume 9.7 7.4-10.4 fL Neutrophils (%) (Auto) 73.9 % Lymphocytes (%) (Auto) 11.9 % Monocytes (%) (Auto) 12.9 % Eosinophils (%) (Auto) 0.8 % Basophils (%) (Auto) 0.3 % Neutrophils # (Auto) 7.85 1.4-6.5 K/uL Lymphocytes # (Auto) 1.27 1.2-3.4 K/uL Monocytes # (Auto) 1.37 0.11-0.59 K/uL Eosinophils # (Auto) 0.09 0-0.5 K/uL Basophils # (Auto) 0.03 0-0.2 K/uL RDW Standard Deviation 47.5 36.4-46.3 fL RDW Coefficient of Variation 13.6 11.5-14.5 % Immature Granulocyte % (Auto) 0.2 % Immature Granulocyte # (Auto) 0.02 0.00-0.02 K/uL Red Blood Cell Morphology Unremarkable Iron Level 44 35-150 mcg/dl Total Iron Binding Capacity 556 250-450 mcg/dl Bedside Glucose 139 70-90 mg/dl
[2016-07-17] MEDS: MoRPHine SULFATE 2 MG/ML CARP IV PRN ×2 (10:00→23:40)
--- NOTE | 2016-07-17 11:49 | Cardiology Follow-Up ---
Subjective General Date of Service: Jul 17, 2016. Chief Complaint: POD#2 Pt evaluation today including: conversation w/ patient, physical exam, chart review, lab review, review of studies, review of inpatient medication list History of Present Illness Status post 07/13/2016 mechanical fall, resultant intertrochanteric comminuted fracture of the left hip Status post 07/15/[address] Bowen, IM nailing of the left femur. Low low urine output observed last night. Given IVF's. Home oral diuretics held. Patient seen and examined. Left hip pain. Tired. No chest pain, palpitations, or dyspnea. No orthopnea or PND. Hgb 8.2 g/dL. Sodium 132 mmol/L Nonmonitored bed. July 14, 2016 TTE Interpretation Summary ([facility], Dr. Robertson): Left ventricular systolic function is mildly reduced. Ejection Fraction = 40-45%. There is moderate concentric left ventricular hypertrophy. Septal motion is consistent with conduction abnormality. Otherwise, mild global hypokinesis. There is mild to moderate tricuspid regurgitation. Allergies Coded Allergies: Citalopram (Verified Allergy, Unknown, 10/29/15) Paroxetine (Verified Allergy, Unknown, 10/29/15) Sulfa Antibiotics (Verified Allergy, Unknown, TOLERATES LASIX, 10/29/15) Wasp Venom Protein (Verified Allergy, Unknown, HIVES, 10/29/15) Celecoxib (Verified Adverse Reaction, Mild, N/V, 03/03/12) Social History Smoking Status: Never Smoker Hx Tobacco Use In Past Year?: No Hx Alcohol Use - Type And Amou: No Hx Substance Use - Type And Am: No Problem List Medical Problems: (1) Hip fracture Status: Acute Review of Systems Respiratory: No cough, No dyspnea on exertion, No hemoptysis, No shortness of breath, No sputum, No wheezing Cardiac: No PND, No chest pain, No edema, No orthopnea, No palpitations Physical Exam Vital Signs Last Vital Signs Documentation Date Time Temp Pulse Resp B/P Pulse Ox O2 Delivery O2 Flow Rate FiO2 07/17/16 11:28 36.9 16 120/70 82 07/17/16 10:38 Room Air 07/17/16 08:13 101 07/16/16 23:15 2.0 Physical Exam Constitutional: General Apperance: well-nourished Level of Distress: NAD Psychiatric: Mental Status: active & alert Orientation: to time, to place, to person Memory: recent memory normal, remote memory normal Head: normocephalic, atraumatic ENMT: normal ENT inspection Neck: supple, trachea midline Lungs: Auscultation: no wheezing, no rales/crackles, no rhonchi, deminished air movement, decreased breath sounds Cardiovascular: Heart Auscultation: I/ WSM, irregular rate rhythm (80's) Abdomen: Bowel Sounds: normal Extremities: no edema Neurologic: Cranial Nerves: grossly intact Assessment and Plan Assessment and Plan POD #2, 07/15/2016 IM nailing of the left femur following a mechanical fall Chronic atrial fibrillation. Rate relatively well controlled. Contraindications to anticoagulation History of systolic and diastolic congestive heart failure. Mild intravascular volume depletion by examination. RECOMMENDATIONS: ? need for transfusion of PRBC's Hold furosemide (20 mg/day) and spironolactone (25 mg/day). Reassess volume status in AM Continue current rate lowering therapies as prescribed. Contraindications to Coumadin anticoagulation. Pain management and PT as per Orthopedics. Cardiology Attending Physician: Patient seen and examined at the bedside. She is feeling well from a cardiovascular perspective. Denies CP or SOB. No palpitations. PE: VSS. Gen: NAD, AAO x3. Heart: Irregular. Normal S1S2, 1/6 holosystolic murmur heard best at the apex. Lungs: clear B/L, No RRW. Ext: No edema. A/P: Agree with above PA-C history, physical exam, assessment and plan. Hold lasix and aldactone. Reassess volume status in the AM. Follow H/H. PT as tolerated. Gibran Robertson DO, [facility] Laboratory Results Last 24 Hours Test 07/16/16 17:07 07/16/16 19:00 07/16/16 20:33 07/16/16 22:30 Bedside Glucose 166 mg/dl 146 mg/dl Hemoglobin 8.4 g/dL Hematocrit 24.9 % Sodium Level 133 mmol/L Potassium Level 4.8 mmol/L Chloride Level 97 mmol/L Carbon Dioxide Level 28 mmol/L Anion Gap 8.0 mmol/L Blood Urea Nitrogen 41 mg/dl Creatinine 1.20 mg/dl Est Creatinine Clear Calc Drug Dose 32.5 ml/min Estimated GFR () 51.6 Estimated GFR (Non- 44.5 BUN/Creatinine Ratio 34.3 Random Glucose 151 mg/dl Calcium Level 9.1 mg/dl Magnesium Level 1.9 mg/dl Test 07/17/16 06:56 07/17/16 07:32 White Blood Count 10.63 K/uL Red Blood Count 2.53 M/uL Hemoglobin 8.2 g/dL Hematocrit 24.4 % Mean Corpuscular Volume 96.4 fL Mean Corpuscular Hemoglobin 32.4 pg Mean Corpuscular Hemoglobin Concent 33.6 g/dl Platelet Count 116 K/uL Mean Platelet Volume 9.7 fL Neutrophils (%) (Auto) 73.9 % Lymphocytes (%) (Auto) 11.9 % Monocytes (%) (Auto) 12.9 % Eosinophils (%) (Auto) 0.8 % Basophils (%) (Auto) 0.3 % Neutrophils # (Auto) 7.85 K/uL Lymphocytes # (Auto) 1.27 K/uL Monocytes # (Auto) 1.37 K/uL Eosinophils # (Auto) 0.09 K/uL Basophils # (Auto) 0.03 K/uL RDW Standard Deviation 47.5 fL RDW Coefficient of Variation 13.6 % Immature Granulocyte % (Auto) 0.2 % Immature Granulocyte # (Auto) 0.02 K/uL Red Blood Cell Morphology Unremarkable Sodium Level 132 mmol/L Potassium Level 4.5 mmol/L Chloride Level 101 mmol/L Carbon Dioxide Level 21 mmol/L Anion Gap 10.0 mmol/L Blood Urea Nitrogen 39 mg/dl Creatinine 0.96 mg/dl Est Creatinine Clear Calc Drug Dose 40.7 ml/min Estimated GFR () 67.5 Estimated GFR (Non- 58.3 BUN/Creatinine Ratio 40.6 Random Glucose 121 mg/dl Calcium Level 9.4 mg/dl Iron Level 44 mcg/dl Total Iron Binding Capacity 556 mcg/dl Bedside Glucose 139 mg/dl
--- NOTE | 2016-07-17 12:27 | Progress Note ---
Internal Med Progress Note Date of Service: Jul 17, 2016. Provider Documentation: SUBJECTIVE: Patient is lying in her bed and is in no acute distress. Still has been experiencing increased pain intermittently. Was able to participate with PT in AM today. Not sure about the last BM. OBJECTIVE: Vital Signs-as noted below Examination: General Appearance:Thin, fragile, Alert/Awake, In no apparent distress Head: normocephalic, Atraumatic Eyes: normal inspection, EOMI, PERRL Neck: supple, Trachea midline Respiratory/Chest: Normal breath sounds, Decreased BS at lung bases. Cardiovascular: S1, S2, + systolic murmur Abdomen/GI:Soft, Non tender, Bowel sounds present Extremities/Musculoskeletal:normal inspection, no edema, +tender left hip in surgical bandage Neurologic/Psych:AAOX3, grossly no focal neurological deficits Skin: normal color, warm Lab data as noted below. ASSESSMENT & PLAN: Echocardiogram: -Left ventricular systolic function is mildly reduced. -Ejection Fraction = 40-45%. -There is moderate concentric left ventricular hypertrophy. -Septal motion is consistent with conduction abnormality. -Otherwise, mild global hypokinesis. -There is mild to moderate tricuspid regurgitation. Intertrochanteric Fracture of Left Hip: Due to mechanical fall. Intramedullary nidia to left hip: POD # 2. Could have underlying osteoporosis -Pain control as per need -Appreciate Orthopedic surgery help -Bowel regimen to prevent constipation -Monitoring for post OP anemia. Hb:8.2. One dose of Venofer today. Hypertensive Urgency:Resolved. BP is more stable today. -Continue current meds -Continue to monitor UTI:Urine culture:Klebsiella pneumoniae -Continue IV Ceftriaxone (Day # 4) Vit D Deficiency:Continue Calcium, Vit D supplements Vit D levels:13.0 History Sick Sinus Syndrome S/P PPM: H/O Afib. H/O partial modified AVJ ablation at [facility] -Off anticoagulation because of fall risk and multiple bleeding events in the past -Continue Digoxin, Cardizem, BB -Appreciate Cardiology input H/O Intracranial Hemorrhage/Rectus sheath Hematoma: S/P IVC filter. Stable Denies head trauma during fall this encounter -Monitoring H&H -Will transfuse PRBCs PRN if Hb continues to drop Diabetes Type II: Stable -ISS, Lantus, Accu checks Chronic Systolic Heart Failure:: Last EF 35% Improved CHF currently after last outpatient [facility] Cardiology visit 2 weeks ago w / additional diuretic dosing -Continue digoxin -Resume diuretics Lasix, spironolactone today per cardiology -Cardiology following Chronic Thrombocytopenia:Stable -Monitor platelets H/O Fibromyalgia:Stable DVT Prophylaxis:SCDs, Reason: H/O ICH, thrombocytopenia Code Status:Full code Disposition:Discharge once is cleared by Orthopedics. Vital Signs: Date Time Temp Pulse Resp B/P Pulse Ox O2 Delivery O2 Flow Rate FiO2 07/17/16 11:28 36.9 16 120/70 82 07/17/16 10:38 Room Air 07/17/16 08:13 36.9 101 18 156/68 94 Room Air 07/17/16 07:45 94 Room Air 07/17/16 07:41 37.4 90 18 133/83 100 Room Air 07/16/16 23:15 Nasal Cannula 2.0 07/16/16 22:55 37.2 80 16 115/69 94 Nasal Cannula 2.0 07/16/16 17:09 36.6 65 18 124/67 92 Nasal Cannula 2.0 07/16/16 17:07 65 07/16/16 16:00 92 Nasal Cannula 2.0 07/16/16 13:26 100 2.0 Lab Results: Results Past 24 Hours Test 07/16/16 17:07 07/16/16 19:00 07/16/16 20:33 07/16/16 22:30 Range/Units Bedside Glucose 166 146 70-90 mg/dl Hemoglobin 8.4 12.0-16.0 g/dL Hematocrit 24.9 37-47 % Sodium Level 133 136-145 mmol/L Potassium Level 4.8 3.5-5.1 mmol/L Chloride Level 97 98-107 mmol/L Carbon Dioxide Level 28 21-32 mmol/L Anion Gap 8.0 3-11 mmol/L Blood Urea Nitrogen 41 7-18 mg/dl Creatinine 1.20 0.60-1.20 mg/dl Est Creatinine Clear Calc Drug Dose 32.5 ml/min Estimated GFR () 51.6 Estimated GFR (Non- 44.5 BUN/Creatinine Ratio 34.3 10-20 Random Glucose 151 70-99 mg/dl Calcium Level 9.1 8.5-10.1 mg/dl Magnesium Level 1.9 1.8-2.4 mg/dl Test 07/17/16 06:56 07/17/16 07:32 4/4/17 12:06 Range/Units White Blood Count 10.63 4.8-10.8 K/uL Red Blood Count 2.53 4.2-5.4 M/uL Hemoglobin 8.2 12.0-16.0 g/dL Hematocrit 24.4 37-47 % Mean Corpuscular Volume 96.4 80-100 fL Mean Corpuscular Hemoglobin 32.4 25-34 pg Mean Corpuscular Hemoglobin Concent 33.6 32-36 g/dl Platelet Count 116 130-400 K/uL Mean Platelet Volume 9.7 7.4-10.4 fL Neutrophils (%) (Auto) 73.9 % Lymphocytes (%) (Auto) 11.9 % Monocytes (%) (Auto) 12.9 % Eosinophils (%) (Auto) 0.8 % Basophils (%) (Auto) 0.3 % Neutrophils # (Auto) 7.85 1.4-6.5 K/uL Lymphocytes # (Auto) 1.27 1.2-3.4 K/uL Monocytes # (Auto) 1.37 0.11-0.59 K/uL Eosinophils # (Auto) 0.09 0-0.5 K/uL Basophils # (Auto) 0.03 0-0.2 K/uL RDW Standard Deviation 47.5 36.4-46.3 fL RDW Coefficient of Variation 13.6 11.5-14.5 % Immature Granulocyte % (Auto) 0.2 % Immature Granulocyte # (Auto) 0.02 0.00-0.02 K/uL Red Blood Cell Morphology Unremarkable Sodium Level 132 136-145 mmol/L Potassium Level 4.5 3.5-5.1 mmol/L Chloride Level 101 98-107 mmol/L Carbon Dioxide Level 21 21-32 mmol/L Anion Gap 10.0 3-11 mmol/L Blood Urea Nitrogen 39 7-18 mg/dl Creatinine 0.96 0.60-1.20 mg/dl Est Creatinine Clear Calc Drug Dose 40.7 ml/min Estimated GFR () 67.5 Estimated GFR (Non- 58.3 BUN/Creatinine Ratio 40.6 10-20 Random Glucose 121 70-99 mg/dl Calcium Level 9.4 8.5-10.1 mg/dl Iron Level 44 35-150 mcg/dl Total Iron Binding Capacity 556 250-450 mcg/dl Bedside Glucose 139 197 70-90 mg/dl
[2016-07-17] MEDS ORDERED: IRON SUCROSE INJ 100 MG in SODIUM CHLORIDE 0.9% 100ML 100 ML IV SCH (12:45)
[2016-07-17] MEDS ORDERED: DOCUSATE SODIUM 100 MG CAP PO ONE (13:00)
[2016-07-17] MEDS: DIGOXIN 0.125 MG TAB PO SCH (15:52)
--- NOTE | 2016-07-17 17:28 | Discharge Instructions ---
Discharge Instructions Date of Service Jul 17, 2016. Admission Reason for Admission: Hip Fracture Discharge Discharge Diagnosis / Problem: hip fracture Discharge Goals Goal(s): Improve function Activity Recommendations Activity Limitations: as noted below Lifting Limitations: gradually increase as tolerated Exercise/Sports Limitations: until after follow-up appointment May Resume Sexual Activity: after follow-up appointment Shower/Bathe: keep incision dry Driving or Machine Use: Weightbearing Status: Left partial . Instructions / Follow-Up Instructions / Follow-Up FOLLOW UP WITH DR. VALDEZ IN OFFICE IN 10-14 DAYS TOUCH WEIGHT BEARING TOLERATED ON R LOWER EXTREMITY KEEP INCISION DRY AND COVERED WITH DRESSING PLEASE CONTACT OFFICE IF YOU DEVELOP SIGNIFICANT PAIN, CHEST PAIN, SHORTNESS OF BREATH, CALF PAIN, FEVER OVER 101 F. Current Hospital Diet Patient's current hospital diet: Diabetes Type 2 Diet, AHA Diet (Heart Healthy) Discharge Diet Recommended Diet: Regular Diet Procedures Procedures Performed: Intramedullary Jaspreet Femur, Left long Pending Studies Studies pending at discharge: no Medical Emergencies . Who to Call and When: Medical Emergencies: If at any time you feel your situation is an emergency, please call 911 immediately. . Non-Emergent Contact Non-Emergency issues call your: Hospital Doctor, Surgeon Call Non-Emergent contact if: you have any medication questions . "Provider Documentation" section prepared by Terrance Valdez. VTE Core Measure Inpt VTE Proph given/why not?: Treatment not tolerated
[2016-07-17] MEDS: CEFTRIAXONE SOD INJ 1 GM in DEXTROSE 5% ADD-VANTAGE 50ML 50 ML IV SCH (19:27)
[2016-07-17] MEDS: SENNA 8.6 MG TAB PO SCH (21:23)
[2016-07-17] MEDS: GABAPENTIN 100 MG CAP PO SCH (21:24)
[2016-07-17] MEDS: SODIUM CHLORIDE 0.9% 1000ML 1,000 ML IV SCH (22:56)
[2016-07-18] VITALS (13 sets, daily range): BP systolic 110–157; BP diastolic 49–85; PULSE 62–102; TEMP 36.4–37.1; O2SAT 91–94
[2016-07-18] MEDS: LEVOTHYROXINE 125 MCG TAB PO SCH (05:30)
[2016-07-18] MEDS: HYDROCODONE/ACETAMOPHEN 5/325MG TAB PO PRN ×4 (05:30→19:20)
[2016-07-18 05:35] LABS: HEMATOCRIT 21.1 % (37-47); MEAN CELL VOLUME 94.6 fL (80-100); MEAN CORPUSCULAR HEMOGLOBIN 31.4 pg (25-34); MEAN CORPUSCULAR HGB CONC 33.2 g/dl (32-36); MEAN PLATELET VOLUME 8.7 fL (7.4-10.4); PLATELET COUNT 122 K/uL (130-400); RED BLOOD COUNT 2.23 M/uL (4.2-5.4); WHITE BLOOD COUNT 8.42 K/uL (4.8-10.8)
[2016-07-18 06:10] LABS: BUN/CREATININE RATIO 37.3 (10-20); CALCIUM 8.9 mg/dl (8.5-10.1); CREATININE 0.78 mg/dl (0.60-1.20); POTASSIUM 4.2 mmol/L (3.5-5.1)
[2016-07-18] MEDS: MAGNESIUM HYDROXIDE SUSP 30 ML UDC PO PRN (06:16)
[2016-07-18] MEDS ORDERED: IRON SUCROSE INJ 100 MG in SODIUM CHLORIDE 0.9% 100ML 100 ML IV SCH (09:00)
[2016-07-18] MEDS: CALCIUM 600MG + VIT D 400 IU TAB PO SCH ×2 (09:10→21:25)
[2016-07-18] MEDS: DOCUSATE SODIUM 100 MG CAP PO SCH (09:11)
[2016-07-18] MEDS: ATORVASTATIN 40 MG TAB PO SCH (09:11)
[2016-07-18] MEDS: PANTOprazole SOD 40 MG TAB PO SCH (09:12)
[2016-07-18] MEDS: ALLOPURINOL 300 MG TAB PO SCH (09:12)
[2016-07-18] MEDS: LOSARTAN POTASSIUM 50 MG TAB PO SCH (09:32)
[2016-07-18] MEDS: INSULIN ASPART 100 UNITS/ML 3 ML PEN SC SCH ×4 (09:35→21:28)
[2016-07-18] MEDS: DILTIAZEM HCL 120 MG EXT REL CAP PO SCH (09:35)
[2016-07-18] MEDS: METOPROLOL SUCC 50MG EXT REL TAB PO SCH ×2 (09:36→21:24)
--- NOTE | 2016-07-18 09:53 | Cardiology Follow-Up ---
Subjective General Date of Service: Jul 18, 2016. Chief Complaint: POD#3 Pt evaluation today including: conversation w/ patient, physical exam, chart review, lab review, review of studies, review of inpatient medication list History of Present Illness Status post 07/13/2016 mechanical fall, resultant intertrochanteric comminuted fracture of the left hip Status post 07/15/[address] Bowen, IM nailing of the left femur. Patient seen and examined. Lone complaint is left hip pain. No chest pain, palpitations, or dyspnea. No cough, orthopnea, PND, or edema Hgb 7.0 g/dL. Sodium normalized. Nonmonitored bed. July 14, 2016 TTE Interpretation Summary ([facility], Dr. Robertson): Left ventricular systolic function is mildly reduced. Ejection Fraction = 40-45%. There is moderate concentric left ventricular hypertrophy. Septal motion is consistent with conduction abnormality. Otherwise, mild global hypokinesis. There is mild to moderate tricuspid regurgitation. Allergies Coded Allergies: Citalopram (Verified Allergy, Unknown, 10/29/15) Paroxetine (Verified Allergy, Unknown, 10/29/15) Sulfa Antibiotics (Verified Allergy, Unknown, TOLERATES LASIX, 10/29/15) Wasp Venom Protein (Verified Allergy, Unknown, HIVES, 10/29/15) Celecoxib (Verified Adverse Reaction, Mild, N/V, 03/03/12) Social History Smoking Status: Never Smoker Hx Tobacco Use In Past Year?: No Hx Alcohol Use - Type And Amou: No Hx Substance Use - Type And Am: No Problem List Medical Problems: (1) Hip fracture Status: Acute Review of Systems Respiratory: No cough, No dyspnea on exertion, No hemoptysis, No shortness of breath, No sputum, No wheezing Cardiac: No chest pain, No edema, No orthopnea, No palpitations Physical Exam Vital Signs Last Vital Signs Documentation Date Time Temp Pulse Resp B/P Pulse Ox O2 Delivery O2 Flow Rate FiO2 07/18/16 09:30 37.0 73 16 116/73 91 Room Air 07/18/16 08:39 2.0 Physical Exam Constitutional: General Apperance: well-nourished Level of Distress: NAD Psychiatric: Mental Status: active & alert Orientation: to time, to place, to person Memory: recent memory normal, remote memory normal Head: normocephalic, atraumatic ENMT: normal ENT inspection Neck: supple, trachea midline Lungs: Auscultation: no wheezing, no rales/crackles, no rhonchi, deminished air movement, decreased breath sounds Cardiovascular: Heart Auscultation: I/ WSM, irregular rate rhythm (80's) Abdomen: Bowel Sounds: normal Extremities: no edema Neurologic: Cranial Nerves: grossly intact Assessment and Plan Assessment and Plan POD #3, 07/15/2016 IM nailing of the left femur following a mechanical fall Chronic atrial fibrillation. Rate relatively well controlled. Contraindications to anticoagulation History of systolic and diastolic congestive heart failure. Compensated today. RECOMMENDATIONS: Recommend transfusion of PRBC's with low dose IV furosemide post transfusion.. Hold oral furosemide (20 mg/day) and spironolactone (25 mg/day) today. Likely resume in AM of 4/6 or 47. Continue current rate lowering therapies as prescribed. Contraindications to Coumadin anticoagulation. Pain management and therapy as per Orthopedics. Cardiology Attending Physician: Patient seen and examined at the bedside. She is feeling well from a cardiovascular perspective. Denies CP or SOB. No palpitations. PE: VSS. Gen: NAD, AAO x3. Heart: Irregular. Normal S1S2, 1/6 holosystolic murmur heard best at the apex. Lungs: clear B/L, No RRW. Ext: No edema. A/P: Agree with above PA-C history, physical exam, assessment and plan. Hold lasix and aldactone. Transfuse one unit PRBC's today. Follow H/H. Gibran Robertson DO [facility] Laboratory Results Last 24 Hours Test 07/17/16 12:06 07/17/16 16:51 07/17/16 20:49 07/18/16 05:15 Bedside Glucose 197 mg/dl 222 mg/dl 170 mg/dl White Blood Count 8.42 K/uL Red Blood Count 2.23 M/uL Hemoglobin 7.0 g/dL Hematocrit 21.1 % Mean Corpuscular Volume 94.6 fL Mean Corpuscular Hemoglobin 31.4 pg Mean Corpuscular Hemoglobin Concent 33.2 g/dl RDW Standard Deviation 47.3 fL RDW Coefficient of Variation 13.6 % Platelet Count 122 K/uL Mean Platelet Volume 8.7 fL Sodium Level 136 mmol/L Potassium Level 4.2 mmol/L Chloride Level 102 mmol/L Carbon Dioxide Level 29 mmol/L Anion Gap 5.0 mmol/L Blood Urea Nitrogen 29 mg/dl Creatinine 0.78 mg/dl Est Creatinine Clear Calc Drug Dose 50.1 ml/min Estimated GFR () 86.8 Estimated GFR (Non- 74.9 BUN/Creatinine Ratio 37.3 Random Glucose 72 mg/dl Calcium Level 8.9 mg/dl Test 07/18/16 08:00 Bedside Glucose 70 mg/dl
[2016-07-18] MEDS ORDERED: NURSING VERBAL MED ORDER ONE (10:00)
[2016-07-18] MEDS: INSULIN GLARGINE SOLOSTAR 100 UNITS/ML 3 ML PEN SC SCH ×2 (10:02→21:29)
[2016-07-18] MEDS ORDERED: INSULIN GLARGINE SOLOSTAR 100 UNITS/ML 3 ML PEN SC ONE (10:30)
--- NOTE | 2016-07-18 11:15 | Progress Note ---
Internal Med Progress Note Date of Service: Jul 18, 2016. Provider Documentation: SUBJECTIVE: Patient is sitting in the chair and is in no acute distress. Still has been experiencing increased pain intermittently. Was able to participate with PT. Not sure about the last BM.No blood in stools reported. OBJECTIVE: Vital Signs-as noted below Examination: General Appearance:Thin, fragile, Alert/Awake, In no apparent distress Head: normocephalic, Atraumatic Eyes: normal inspection, EOMI, PERRL Neck: supple, Trachea midline Respiratory/Chest: Normal breath sounds, Decreased BS at lung bases. Cardiovascular: S1, S2, + systolic murmur Abdomen/GI:Soft, Non tender, Bowel sounds present Extremities/Musculoskeletal:normal inspection, no edema, +tender left hip in surgical bandage Neurologic/Psych:AAOX3, grossly no focal neurological deficits Skin: normal color, warm Lab data as noted below. ASSESSMENT & PLAN: Echocardiogram: -Left ventricular systolic function is mildly reduced. -Ejection Fraction = 40-45%. -There is moderate concentric left ventricular hypertrophy. -Septal motion is consistent with conduction abnormality. -Otherwise, mild global hypokinesis. -There is mild to moderate tricuspid regurgitation. Intertrochanteric Fracture of Left Hip: Due to mechanical fall. Intramedullary [place] to left hip: POD # 3. Could have underlying osteoporosis -Pain control as per need -Appreciate Orthopedic surgery help -Bowel regimen to prevent constipation -Monitoring for post OP anemia. Hb:8.2. One dose of Venofer today. Hypertensive Urgency:Resolved. BP is more stable today. -Continue current meds -Continue to monitor Anemia Due to Acute Blood Loss: Transfuse one unit of PRBC. -Monitor H/H -Check for occult loss UTI:Urine culture:Klebsiella pneumoniae -Continue IV Ceftriaxone (Day # 5) Vit D Deficiency:Continue Calcium, Vit D supplements Vit D levels:13.0 History Sick Sinus Syndrome S/P PPM: H/O Afib. H/O partial modified AVJ ablation at [facility] -Off anticoagulation because of fall risk and multiple bleeding events in the past -Continue Digoxin, Cardizem, BB -Appreciate Cardiology input H/O Intracranial Hemorrhage/Rectus sheath Hematoma: S/P IVC filter. Stable Denies head trauma during fall this encounter -Monitoring H&H -Will transfuse PRBCs PRN if Hb continues to drop Diabetes Type II: Stable -ISS, Lantus, Accu checks Chronic Systolic Heart Failure:: Last EF 35% Improved CHF currently after last outpatient [facility] visit 2 weeks ago w / additional diuretic dosing -Continue digoxin -Resume diuretics Lasix, spironolactone today per cardiology -Cardiology following Chronic Thrombocytopenia:Stable -Monitor platelets H/O Fibromyalgia:Stable DVT Prophylaxis:SCDs, Reason: H/O ICH, thrombocytopenia Code Status:Full code Disposition:Discharge once is cleared by Orthopedics. Vital Signs: Date Time Temp Pulse Resp B/P Pulse Ox O2 Delivery O2 Flow Rate FiO2 07/18/16 09:30 37.0 73 16 116/73 91 Room Air 07/18/16 08:39 36.7 73 16 110/58 93 Nasal Cannula 2.0 07/18/16 07:11 37.0 102 18 157/79 94 Nasal Cannula 2.0 07/18/16 07:10 Nasal Cannula 2.0 07/18/16 00:00 Room Air 07/17/16 23:24 95 Nasal Cannula 2.0 07/17/16 23:20 37.4 78 16 130/70 84 Room Air 07/17/16 16:00 90 Room Air 07/17/16 15:52 60 07/17/16 15:17 36.5 60 18 114/61 90 Room Air 07/17/16 11:28 36.9 16 120/70 82 Lab Results: Results Past 24 Hours Test 07/17/16 12:06 07/17/16 16:51 07/17/16 20:49 07/18/16 05:15 Range/Units Bedside Glucose 197 222 170 70-90 mg/dl White Blood Count 8.42 4.8-10.8 K/uL Red Blood Count 2.23 4.2-5.4 M/uL Hemoglobin 7.0 12.0-16.0 g/dL Hematocrit 21.1 37-47 % Mean Corpuscular Volume 94.6 80-100 fL Mean Corpuscular Hemoglobin 31.4 25-34 pg Mean Corpuscular Hemoglobin Concent 33.2 32-36 g/dl RDW Standard Deviation 47.3 36.4-46.3 fL RDW Coefficient of Variation 13.6 11.5-14.5 % Platelet Count 122 130-400 K/uL Mean Platelet Volume 8.7 7.4-10.4 fL Sodium Level 136 136-145 mmol/L Potassium Level 4.2 3.5-5.1 mmol/L Chloride Level 102 98-107 mmol/L Carbon Dioxide Level 29 21-32 mmol/L Anion Gap 5.0 3-11 mmol/L Blood Urea Nitrogen 29 7-18 mg/dl Creatinine 0.78 0.60-1.20 mg/dl Est Creatinine Clear Calc Drug Dose 50.1 ml/min Estimated GFR () 86.8 Estimated GFR (Non- 74.9 BUN/Creatinine Ratio 37.3 10-20 Random Glucose 72 70-99 mg/dl Calcium Level 8.9 8.5-10.1 mg/dl Test 07/18/16 08:00 Range/Units Bedside Glucose 70 70-90 mg/dl
[2016-07-18] MEDS ORDERED: FUROSEMIDE INJ 10 MG in SYRINGE 0 ML IV SCH (13:00)
[2016-07-18] MEDS: DIGOXIN 0.125 MG TAB PO SCH (15:49)
[2016-07-18] MEDS: CEFTRIAXONE SOD INJ 1 GM in DEXTROSE 5% ADD-VANTAGE 50ML 50 ML IV SCH (19:20)
[2016-07-18] MEDS: SENNA 8.6 MG TAB PO SCH (21:25)
[2016-07-18] MEDS: GABAPENTIN 100 MG CAP PO SCH (21:25)
[2016-07-19] VITALS (17 sets, daily range): BP systolic 123–157; BP diastolic 56–83; PULSE 57–98; TEMP 36.6–37.4; O2SAT 91–96
[2016-07-19] MEDS: HYDROCODONE/ACETAMOPHEN 5/325MG TAB PO PRN ×4 (02:39→17:31)
[2016-07-19] MEDS: MAGNESIUM HYDROXIDE SUSP 30 ML UDC PO PRN (06:24)
[2016-07-19] MEDS: LEVOTHYROXINE 125 MCG TAB PO SCH (06:25)
[2016-07-19 06:48] LABS: BUN/CREATININE RATIO 39.6 (10-20); CALCIUM 8.5 mg/dl (8.5-10.1); CREATININE 0.74 mg/dl (0.60-1.20); POTASSIUM 4.3 mmol/L (3.5-5.1)
[2016-07-19 07:17] LABS: HEMATOCRIT 22.5 % (37-47); MEAN CELL VOLUME 93.8 fL (80-100); MEAN CORPUSCULAR HEMOGLOBIN 31.3 pg (25-34); MEAN CORPUSCULAR HGB CONC 33.3 g/dl (32-36); MEAN PLATELET VOLUME 9.1 fL (7.4-10.4); PLATELET COUNT 144 K/uL (130-400); WHITE BLOOD COUNT 7.68 K/uL (4.8-10.8)
[2016-07-19] MEDS: DOCUSATE SODIUM 100 MG CAP PO SCH ×2 (09:07→21:12)
[2016-07-19] MEDS: CALCIUM 600MG + VIT D 400 IU TAB PO SCH ×2 (09:07→21:15)
[2016-07-19] MEDS: ATORVASTATIN 40 MG TAB PO SCH (09:12)
[2016-07-19] MEDS: PANTOprazole SOD 40 MG TAB PO SCH (09:12)
[2016-07-19] MEDS: LOSARTAN POTASSIUM 50 MG TAB PO SCH (09:12)
[2016-07-19] MEDS: DILTIAZEM HCL 120 MG EXT REL CAP PO SCH (09:13)
[2016-07-19] MEDS: ALLOPURINOL 300 MG TAB PO SCH (09:13)
[2016-07-19] MEDS: METOPROLOL SUCC 50MG EXT REL TAB PO SCH ×2 (09:14→21:15)
--- NOTE | 2016-07-19 09:43 | Cardiology Follow-Up ---
Subjective General Date of Service: Jul 19, 2016. Chief Complaint: POD#4 Pt evaluation today including: conversation w/ patient, physical exam, chart review, lab review, review of studies, review of inpatient medication list History of Present Illness Status post 07/13/2016 mechanical fall, resultant intertrochanteric comminuted fracture of the left hip Status post 07/15/[address] Bowen, IM nailing of the left femur. Patient seen and examined. Complaints include left hip pain, IV site (right wrist) discomfort, and cold pancakes. No chest pain, palpitations, or dyspnea. No cough, orthopnea, PND, or edema. Allergies Coded Allergies: Citalopram (Verified Allergy, Unknown, 10/29/15) Paroxetine (Verified Allergy, Unknown, 10/29/15) Sulfa Antibiotics (Verified Allergy, Unknown, TOLERATES LASIX, 10/29/15) Wasp Venom Protein (Verified Allergy, Unknown, HIVES, 10/29/15) Celecoxib (Verified Adverse Reaction, Mild, N/V, 03/03/12) Social History Smoking Status: Never Smoker Hx Tobacco Use In Past Year?: No Hx Alcohol Use - Type And Amou: No Hx Substance Use - Type And Am: No Problem List Medical Problems: (1) Hip fracture Status: Acute Review of Systems Respiratory: No cough, No dyspnea at rest, No dyspnea on exertion, No hemoptysis, No shortness of breath, No sputum, No wheezing Cardiac: No PND, No chest pain, No edema, No orthopnea, No palpitations Physical Exam Vital Signs Last Vital Signs Documentation Date Time Temp Pulse Resp B/P Pulse Ox O2 Delivery O2 Flow Rate FiO2 07/19/16 09:10 85 139/74 07/19/16 07:06 37.4 19 94 Room Air 07/18/16 08:39 2.0 Physical Exam Constitutional: Level of Distress: NAD Psychiatric: Orientation: to time, to place, to person Memory: recent memory normal, remote memory normal Head: normocephalic, atraumatic ENMT: normal ENT inspection Neck: pertinent finding (Normal JVP. No HJR) Lungs: Respiratory effort: no dyspnea Auscultation: breath sounds normal, no wheezing, no rales/crackles, no rhonchi Cardiovascular: Heart Auscultation: I/ WSM, irregular rate rhythm (70's) Abdomen: Bowel Sounds: normal Extremities: no edema Neurologic: Cranial Nerves: grossly intact Assessment and Plan Assessment and Plan POD #4, 07/15/2016 IM nailing of the left femur following a mechanical fall Chronic atrial fibrillation. Rate relatively well controlled. Contraindications to anticoagulation History of systolic and diastolic congestive heart failure. Compensated today. RECOMMENDATIONS: Agree with transfusion of another unit of packed red blood cells. Continue to hold oral furosemide (20 mg/day) and spironolactone (25 mg/day) today. Reevaluate in AM. Continue current rate lowering therapies as prescribed. Pain management and therapy as per Orthopedics. Cardiology Attending Physician: Patient seen and examined at the bedside. Complains of hip discomfort after using the commode. Received dose of norco. Feeling well from a cardiovascular perspective. Denies CP or SOB. No palpitations. PE: VSS. Gen: NAD, AAO x3. Heart: Irregular. Normal S1S2, 1/6 holosystolic murmur heard best at the apex. Lungs: clear B/L, No R/R/W. Ext: No edema. A/P: Agree with above PA-C history, physical exam, assessment and plan. Hold lasix and aldactone. Agree with transfusion of additional one unit PRBC's today. Follow H/H. Gibran Robertson DO, [facility] Laboratory Results Last 24 Hours Test 07/18/16 11:46 07/18/16 16:47 07/18/16 20:44 07/19/16 05:50 Bedside Glucose 116 mg/dl 164 mg/dl 219 mg/dl White Blood Count 7.68 K/uL Red Blood Count 2.40 M/uL Hemoglobin 7.5 g/dL Hematocrit 22.5 % Mean Corpuscular Volume 93.8 fL Mean Corpuscular Hemoglobin 31.3 pg Mean Corpuscular Hemoglobin Concent 33.3 g/dl RDW Standard Deviation 52.1 fL RDW Coefficient of Variation 15.3 % Platelet Count 144 K/uL Mean Platelet Volume 9.1 fL Sodium Level 135 mmol/L Potassium Level 4.3 mmol/L Chloride Level 100 mmol/L Carbon Dioxide Level 27 mmol/L Anion Gap 8.0 mmol/L Blood Urea Nitrogen 29 mg/dl Creatinine 0.74 mg/dl Est Creatinine Clear Calc Drug Dose 52.8 ml/min Estimated GFR () 92.5 Estimated GFR (Non- 79.8 BUN/Creatinine Ratio 39.6 Random Glucose 146 mg/dl Calcium Level 8.5 mg/dl Digoxin Level 1.4 ng/ml Test 07/19/16 07:58 Bedside Glucose 164 mg/dl
[2016-07-19] MEDS: INSULIN GLARGINE SOLOSTAR 100 UNITS/ML 3 ML PEN SC SCH ×2 (10:03→21:16)
[2016-07-19] MEDS: INSULIN ASPART 100 UNITS/ML 3 ML PEN SC SCH ×5 (10:03→21:00)
[2016-07-19] MEDS ORDERED: NURSING VERBAL MED ORDER ONE (12:15)
[2016-07-19] MEDS ORDERED: FUROSEMIDE INJ 10 MG in SYRINGE 0 ML IV ONE (12:15)
--- NOTE | 2016-07-19 12:16 | Progress Note ---
Internal Med Progress Note Date of Service: Jul 19, 2016. Provider Documentation: SUBJECTIVE: Patient is sitting in the chair and is in no acute distress. Still has been experiencing increased pain intermittently. Was able to participate with PT. Not sure about the last BM.No blood in stools reported. OBJECTIVE: Vital Signs-as noted below Examination: General Appearance:Thin, fragile, Alert/Awake, In no apparent distress Head: normocephalic, Atraumatic Eyes: normal inspection, EOMI, PERRL Neck: supple, Trachea midline Respiratory/Chest: Normal breath sounds, Decreased BS at lung bases. Cardiovascular: S1, S2, + systolic murmur Abdomen/GI:Soft, Non tender, Bowel sounds present Extremities/Musculoskeletal:normal inspection, no edema, +tender left hip in surgical bandage Neurologic/Psych:AAOX3, grossly no focal neurological deficits Skin: normal color, warm Lab data as noted below. ASSESSMENT & PLAN: Echocardiogram: -Left ventricular systolic function is mildly reduced. -Ejection Fraction = 40-45%. -There is moderate concentric left ventricular hypertrophy. -Septal motion is consistent with conduction abnormality. -Otherwise, mild global hypokinesis. -There is mild to moderate tricuspid regurgitation. Intertrochanteric Fracture of Left Hip: Due to mechanical fall. Intramedullary [place] to left hip: POD # 4. Could have underlying osteoporosis -Pain control as per need -Appreciate Orthopedic surgery help -Bowel regimen to prevent constipation -Monitoring for post OP anemia. Hb:8.2. One dose of Venofer today. Hypertensive Urgency:Resolved. BP is more stable today. -Continue current meds -Continue to monitor Anemia Due to Acute Blood Loss: Transfuse 2 unit of PRBC today. -Monitor H/H -Check for occult loss UTI:Urine culture:Klebsiella pneumoniae -Continue IV Ceftriaxone (Day # 6) Vit D Deficiency:Continue Calcium, Vit D supplements Vit D levels:13.0 History Sick Sinus Syndrome S/P PPM: H/O Afib. H/O partial modified AVJ ablation at [facility] -Off anticoagulation because of fall risk and multiple bleeding events in the past -Continue Digoxin, Cardizem, BB -Appreciate Cardiology input H/O Intracranial Hemorrhage/Rectus sheath Hematoma: S/P IVC filter. Stable Denies head trauma during fall this encounter -Monitoring H&H -Will transfuse PRBCs PRN if Hb continues to drop Diabetes Type II: Stable -ISS, Lantus, Accu checks Chronic Systolic Heart Failure:: Last EF 35% Improved CHF currently after last outpatient [facility] Cardiology visit 2 weeks ago w / additional diuretic dosing -Continue digoxin -Resume diuretics Lasix, spironolactone today per cardiology -Cardiology following Chronic Thrombocytopenia:Stable -Monitor platelets H/O Fibromyalgia:Stable DVT Prophylaxis:SCDs, Reason: H/O ICH, thrombocytopenia Code Status:Full code Disposition:Discharge once is cleared by Orthopedics as well H/H is stable. Vital Signs: Date Time Temp Pulse Resp B/P Pulse Ox O2 Delivery O2 Flow Rate FiO2 07/19/16 11:25 36.9 72 18 136/69 92 07/19/16 10:55 37.1 91 19 135/76 07/19/16 10:25 36.9 76 16 144/83 94 07/19/16 10:10 36.8 98 18 157/78 07/19/16 09:52 36.7 80 18 135/68 07/19/16 09:10 85 139/74 07/19/16 07:45 Room Air 07/19/16 07:06 37.4 77 19 150/77 94 Room Air 07/18/16 23:25 36.8 64 14 122/65 91 Room Air 07/18/16 23:15 Room Air 07/18/16 16:00 93 Room Air 07/18/16 15:49 64 07/18/16 14:52 36.9 62 16 130/85 93 Room Air 07/18/16 14:24 133/63 07/18/16 14:16 36.4 74 18 142/61 07/18/16 13:14 36.8 84 18 117/63 92 07/18/16 12:45 37.0 98 18 123/49 07/18/16 12:15 37.1 76 17 129/76 91 Lab Results: Results Past 24 Hours Test 07/18/16 16:47 07/18/16 20:44 07/19/16 05:50 07/19/16 07:58 Range/Units Bedside Glucose 164 219 164 70-90 mg/dl White Blood Count 7.68 4.8-10.8 K/uL Red Blood Count 2.40 4.2-5.4 M/uL Hemoglobin 7.5 12.0-16.0 g/dL Hematocrit 22.5 37-47 % Mean Corpuscular Volume 93.8 80-100 fL Mean Corpuscular Hemoglobin 31.3 25-34 pg Mean Corpuscular Hemoglobin Concent 33.3 32-36 g/dl RDW Standard Deviation 52.1 36.4-46.3 fL RDW Coefficient of Variation 15.3 11.5-14.5 % Platelet Count 144 130-400 K/uL Mean Platelet Volume 9.1 7.4-10.4 fL Sodium Level 135 136-145 mmol/L Potassium Level 4.3 3.5-5.1 mmol/L Chloride Level 100 98-107 mmol/L Carbon Dioxide Level 27 21-32 mmol/L Anion Gap 8.0 3-11 mmol/L Blood Urea Nitrogen 29 7-18 mg/dl Creatinine 0.74 0.60-1.20 mg/dl Est Creatinine Clear Calc Drug Dose 52.8 ml/min Estimated GFR () 92.5 Estimated GFR (Non- 79.8 BUN/Creatinine Ratio 39.6 10-20 Random Glucose 146 70-99 mg/dl Calcium Level 8.5 8.5-10.1 mg/dl Digoxin Level 1.4 0.8-2.0 ng/ml
[2016-07-19] MEDS: ONDANSETRON INJ 2 MG/ML 2 ML VIAL IV PRN ×2 (15:10→21:41)
[2016-07-19] MEDS: DIGOXIN 0.125 MG TAB PO SCH (17:18)
[2016-07-19] MEDS: GABAPENTIN 100 MG CAP PO SCH (21:12)
[2016-07-19] MEDS: SENNA 8.6 MG TAB PO SCH (21:14)
[2016-07-20] MEDS: HYDROCODONE/ACETAMOPHEN 5/325MG TAB PO PRN ×3 (04:28→13:06)
[2016-07-20] MEDS: LEVOTHYROXINE 125 MCG TAB PO SCH (05:39)
[2016-07-20 06:42] LABS: BASO % 0.1 %; BASO ABS # 0.01 K/uL (0-0.2); COMPLETE YES; EOS % 2.6 %; HEMATOCRIT 28.8 % (37-47); IG% 0.4 %; LYMPH % 9.6 %; LYMPH ABS # 0.68 K/uL (1.2-3.4); MEAN CELL VOLUME 89.7 fL (80-100); MEAN CORPUSCULAR HEMOGLOBIN 29.9 pg (25-34); MEAN CORPUSCULAR HGB CONC 33.3 g/dl (32-36); MEAN PLATELET VOLUME 8.7 fL (7.4-10.4); MONO % 14.6 %; NEUT % 72.7 %; PLATELET COUNT 134 K/uL (130-400); RED BLOOD COUNT 3.21 M/uL (4.2-5.4); WHITE BLOOD COUNT 7.05 K/uL (4.8-10.8)
[2016-07-20 07:12] LABS: CREATININE 0.65 mg/dl (0.60-1.20)
[2016-07-20 07:13] LABS: BUN/CREATININE RATIO 33.2 (10-20); CALCIUM 8.6 mg/dl (8.5-10.1); POTASSIUM 4.3 mmol/L (3.5-5.1)
[2016-07-20 07:26] VITALS: BP 135/75; PULSE 86; TEMP 36.6; O2SAT 95
[2016-07-20] MEDS: INSULIN ASPART 100 UNITS/ML 3 ML PEN SC SCH ×2 (08:41→13:09)
--- NOTE | 2016-07-20 08:41 | DISCHARGE SUMMARY ---
DATE: 07/20/2016. SUBJECTIVE: She is alert, oriented. No chest pain, shortness of breath. OBJECTIVE: Vital signs stable. Wounds clean and dry. Hemoglobin 9.6. Moves all extremities. IMPRESSION: Delightful young lady with multiple medical problems, intertrochanteric comminuted hip fracture. She is now out 5 days from her surgery and medically stable. DISPOSITION: I make recommendations for her to go to [facility] or an equivalent rehab type facility. 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 Her lorraine can come out in approximately 10 days. We should see her back in approximately 10 days or 2 weeks. Careful with bending, stooping, lifting, just be on guard and again be careful with her weightbearing status.
[2016-07-20] MEDS: METOPROLOL SUCC 50MG EXT REL TAB PO SCH (08:45)
[2016-07-20] MEDS: PANTOprazole SOD 40 MG TAB PO SCH (08:46)
[2016-07-20] MEDS: DOCUSATE SODIUM 100 MG CAP PO SCH (08:46)
[2016-07-20] MEDS: LOSARTAN POTASSIUM 50 MG TAB PO SCH (08:47)
[2016-07-20] MEDS: ATORVASTATIN 40 MG TAB PO SCH (08:47)
[2016-07-20] MEDS: CALCIUM 600MG + VIT D 400 IU TAB PO SCH (08:48)
[2016-07-20] MEDS: DILTIAZEM HCL 120 MG EXT REL CAP PO SCH (08:48)
[2016-07-20] MEDS: ALLOPURINOL 300 MG TAB PO SCH (09:07)
--- NOTE | 2016-07-20 10:24 | Cardiology Follow-Up ---
Subjective General Date of Service: Jul 20, 2016. Chief Complaint: POD#5 Pt evaluation today including: conversation w/ patient, physical exam, chart review, lab review, review of studies, review of inpatient medication list History of Present Illness Patient seen and examined. Lone complaint is that of left hip/leg discomfort. No chest pain, palpitations, or dyspnea. No cough, orthopnea, PND, or increased peripheral edema. Allergies Coded Allergies: Citalopram (Verified Allergy, Unknown, 10/29/15) Paroxetine (Verified Allergy, Unknown, 10/29/15) Sulfa Antibiotics (Verified Allergy, Unknown, TOLERATES LASIX, 10/29/15) Wasp Venom Protein (Verified Allergy, Unknown, HIVES, 10/29/15) Celecoxib (Verified Adverse Reaction, Mild, N/V, 03/03/12) Social History Smoking Status: Never Smoker Hx Tobacco Use In Past Year?: No Hx Alcohol Use - Type And Amou: No Hx Substance Use - Type And Am: No Problem List Medical Problems: (1) Hip fracture Status: Acute Physical Exam Vital Signs Last Vital Signs Documentation Date Time Temp Pulse Resp B/P Pulse Ox O2 Delivery O2 Flow Rate FiO2 07/20/16 09:10 Room Air 07/20/16 07:26 36.6 86 18 135/75 95 07/18/16 08:39 2.0 Physical Exam Constitutional: Level of Distress: NAD Psychiatric: Orientation: to time, to place, to person Memory: recent memory normal, remote memory normal Head: normocephalic, atraumatic ENMT: normal ENT inspection Neck: pertinent finding (Normal JVP. No HJR) Lungs: Respiratory effort: no dyspnea Auscultation: breath sounds normal, no wheezing, no rales/crackles, no rhonchi Cardiovascular: Heart Auscultation: I/ WSM, irregular rate rhythm (~100 bpm) Abdomen: Bowel Sounds: normal Extremities: no edema Neurologic: Cranial Nerves: grossly intact Assessment and Plan Assessment and Plan POD #5, 07/15/2016 IM nailing of the left femur following a mechanical fall Chronic atrial fibrillation. Rate relatively well controlled. Contraindications to anticoagulation History of systolic and diastolic congestive heart failure. Compensated. RECOMMENDATIONS: Continue as prescribed. Resume oral furosemide (20 mg/day) and spironolactone (25 mg/day) on discharge. Note titration of diltiazem dosing this admission. Will sign off. Please call with any questions or concerns. Laboratory Results Last 24 Hours Test 07/19/16 12:50 07/19/16 13:20 07/19/16 17:07 07/19/16 20:25 Bedside Glucose 198 mg/dl 137 mg/dl 136 mg/dl Stool Occult Blood NEGATIVE Test 07/20/16 06:30 07/20/16 08:12 White Blood Count 7.05 K/uL Red Blood Count 3.21 M/uL Hemoglobin 9.6 g/dL Hematocrit 28.8 % Mean Corpuscular Volume 89.7 fL Mean Corpuscular Hemoglobin 29.9 pg Mean Corpuscular Hemoglobin Concent 33.3 g/dl Platelet Count 134 K/uL Mean Platelet Volume 8.7 fL Neutrophils (%) (Auto) 72.7 % Lymphocytes (%) (Auto) 9.6 % Monocytes (%) (Auto) 14.6 % Eosinophils (%) (Auto) 2.6 % Basophils (%) (Auto) 0.1 % Neutrophils # (Auto) 5.12 K/uL Lymphocytes # (Auto) 0.68 K/uL Monocytes # (Auto) 1.03 K/uL Eosinophils # (Auto) 0.18 K/uL Basophils # (Auto) 0.01 K/uL RDW Standard Deviation 57.3 fL RDW Coefficient of Variation 17.6 % Immature Granulocyte % (Auto) 0.4 % Immature Granulocyte # (Auto) 0.03 K/uL Sodium Level 136 mmol/L Potassium Level 4.3 mmol/L Chloride Level 100 mmol/L Carbon Dioxide Level 31 mmol/L Anion Gap 5.0 mmol/L Blood Urea Nitrogen 22 mg/dl Creatinine 0.65 mg/dl Est Creatinine Clear Calc Drug Dose 60.1 ml/min Estimated GFR () 101.4 Estimated GFR (Non- 87.5 BUN/Creatinine Ratio 33.2 Random Glucose 72 mg/dl Calcium Level 8.6 mg/dl Bedside Glucose 71 mg/dl
--- NOTE | 2016-07-20 11:15 | Progress Note ---
Internal Med Progress Note Date of Service: Jul 20, 2016. Provider Documentation: SUBJECTIVE: Patient is sitting in the chair and is in no acute distress. Still has been experiencing increased pain intermittently but intensity is less. Participates with PT. No active blood loss. OBJECTIVE: Vital Signs-as noted below Examination: General Appearance:Thin, fragile, Alert/Awake, In no apparent distress Head: normocephalic, Atraumatic Eyes: normal inspection, EOMI, PERRL Neck: supple, Trachea midline Respiratory/Chest: Normal breath sounds, Decreased BS at lung bases. Cardiovascular: S1, S2, + systolic murmur Abdomen/GI:Soft, Non tender, Bowel sounds present Extremities/Musculoskeletal:normal inspection, no edema, +tender left hip in surgical bandage Neurologic/Psych:AAOX3, grossly no focal neurological deficits Skin: normal color, warm Lab data as noted below. ASSESSMENT & PLAN: Echocardiogram: -Left ventricular systolic function is mildly reduced. -Ejection Fraction = 40-45%. -There is moderate concentric left ventricular hypertrophy. -Septal motion is consistent with conduction abnormality. -Otherwise, mild global hypokinesis. -There is mild to moderate tricuspid regurgitation. Intertrochanteric Fracture of Left Hip: Due to mechanical fall. Intramedullary [place] to left hip: POD # 5. Could have underlying osteoporosis -Pain control as per need -Appreciate Orthopedic surgery help -Bowel regimen to prevent constipation -Monitoring for post OP anemia. Hypertensive Urgency:Resolved. BP is more stable today. -Continue current meds -Continue to monitor Anemia Due to Acute Blood Loss: Transfused 3 unit of PRBC. -Monitor H/H --Stool occult is negative. UTI:Urine culture:Klebsiella pneumoniae -Continue IV Ceftriaxone (Day # 7) Vit D Deficiency:Continue Calcium, Vit D supplements Vit D levels:13.0 History Sick Sinus Syndrome S/P PPM: H/O Afib. H/O partial modified AVJ ablation at [facility] -Off anticoagulation because of fall risk and multiple bleeding events in the past -Continue Digoxin, Cardizem, BB -Appreciate Cardiology input H/O Intracranial Hemorrhage/Rectus sheath Hematoma: S/P IVC filter. Stable Denies head trauma during fall this encounter -Monitoring H&H -Will transfuse PRBCs PRN if Hb continues to drop Diabetes Type II: Stable -ISS, Lantus, Accu checks Chronic Systolic Heart Failure:: Last EF 35% Improved CHF currently after last outpatient [facility] Cardiology visit 2 weeks ago w / additional diuretic dosing -Continue digoxin -Resume diuretics Lasix, spironolactone today per cardiology -Cardiology following Chronic Thrombocytopenia:Stable -Monitor platelets H/O Fibromyalgia:Stable DVT Prophylaxis:SCDs, Reason: H/O ICH, thrombocytopenia Code Status:Full code Disposition:Discharge to [facility] later today. Follow up with ortho as per their recommendations. Vital Signs: Date Time Temp Pulse Resp B/P Pulse Ox O2 Delivery O2 Flow Rate FiO2 07/20/16 09:10 Room Air 07/20/16 07:26 36.6 86 18 135/75 95 Room Air 07/20/16 00:00 Room Air 07/19/16 23:17 36.8 72 16 130/79 94 Room Air 07/19/16 21:13 64 138/69 07/19/16 17:18 72 07/19/16 16:24 Room Air 07/19/16 15:27 36.9 68 16 145/72 95 Room Air 07/19/16 15:16 36.7 70 18 139/67 91 07/19/16 14:15 37.0 58 19 123/68 07/19/16 13:45 36.8 61 16 124/60 94 07/19/16 13:17 36.8 57 18 146/56 07/19/16 13:00 36.8 60 17 145/64 07/19/16 12:41 36.6 74 16 130/69 07/19/16 12:25 36.6 74 130/69 96 07/19/16 11:25 36.9 72 18 136/69 92 Lab Results: Results Past 24 Hours Test 07/19/16 12:50 07/19/16 13:20 07/19/16 17:07 07/19/16 20:25 Range/Units Bedside Glucose 198 137 136 70-90 mg/dl Stool Occult Blood NEGATIVE NEGATIVE Test 07/20/16 06:30 07/20/16 08:12 Range/Units White Blood Count 7.05 4.8-10.8 K/uL Red Blood Count 3.21 4.2-5.4 M/uL Hemoglobin 9.6 12.0-16.0 g/dL Hematocrit 28.8 37-47 % Mean Corpuscular Volume 89.7 80-100 fL Mean Corpuscular Hemoglobin 29.9 25-34 pg Mean Corpuscular Hemoglobin Concent 33.3 32-36 g/dl Platelet Count 134 130-400 K/uL Mean Platelet Volume 8.7 7.4-10.4 fL Neutrophils (%) (Auto) 72.7 % Lymphocytes (%) (Auto) 9.6 % Monocytes (%) (Auto) 14.6 % Eosinophils (%) (Auto) 2.6 % Basophils (%) (Auto) 0.1 % Neutrophils # (Auto) 5.12 1.4-6.5 K/uL Lymphocytes # (Auto) 0.68 1.2-3.4 K/uL Monocytes # (Auto) 1.03 0.11-0.59 K/uL Eosinophils # (Auto) 0.18 0-0.5 K/uL Basophils # (Auto) 0.01 0-0.2 K/uL RDW Standard Deviation 57.3 36.4-46.3 fL RDW Coefficient of Variation 17.6 11.5-14.5 % Immature Granulocyte % (Auto) 0.4 % Immature Granulocyte # (Auto) 0.03 0.00-0.02 K/uL Sodium Level 136 136-145 mmol/L Potassium Level 4.3 3.5-5.1 mmol/L Chloride Level 100 98-107 mmol/L Carbon Dioxide Level 31 21-32 mmol/L Anion Gap 5.0 3-11 mmol/L Blood Urea Nitrogen 22 7-18 mg/dl Creatinine 0.65 0.60-1.20 mg/dl Est Creatinine Clear Calc Drug Dose 60.1 ml/min Estimated GFR () 101.4 Estimated GFR (Non- 87.5 BUN/Creatinine Ratio 33.2 10-20 Random Glucose 72 70-99 mg/dl Calcium Level 8.6 8.5-10.1 mg/dl Bedside Glucose 71 70-90 mg/dl
[2016-07-20] MEDS ORDERED: TZCSR120 PO (11:19)
[2016-07-20] MEDS ORDERED: HYDR-5688 PO (11:19)
[2016-07-20] MEDS ORDERED: CLC100 PO (11:19)
[2016-07-20] MEDS ORDERED: SNK PO (11:19)
[2016-07-20] MEDS ORDERED: CALCTAB7 PO (11:19)
--- NOTE | 2016-07-20 11:23 | Discharge Instructions ---
Discharge Instructions Date of Service Jul 20, 2016. Admission Reason for Admission: Hip Fracture Discharge Discharge Diagnosis / Problem: Left Hip Fracture S/P Mechanical fall Discharge Goals Goal(s): Decrease discomfort, Improve function, Increase independence, Improve disease control, Improve nutritional status, Learn about illness, Diagnostic testing, Therapeutic intervention Activity Recommendations Activity Limitations: per Instructions/Follow-up section Lifting Limitations: gradually increase as tolerated Exercise/Sports Limitations: gradually increase as tolerated (As per Ortho instructions as we;; PT) Shower/Bathe: keep incision dry . Current Hospital Diet Patient's current hospital diet: Diabetes Type 2 Diet, AHA Diet (Heart Healthy) Discharge Diet Recommended Diet: AHA Diet (Heart Healthy), Diabetes Type 2 Diet Fluid Restriction: 1800 ml (7 cups) Procedures Procedures Performed: Intramedullary Jaspreet Femur, Left long Pending Studies Studies pending at discharge: no Medical Emergencies . Who to Call and When: Medical Emergencies: If at any time you feel your situation is an emergency, please call 911 immediately. . Non-Emergent Contact Non-Emergency issues call your: Primary Care Provider, Specialist (Orthopedics) . . "Provider Documentation" section prepared by Guilherme Doe. VTE Core Measure Inpt VTE Proph given/why not?: SCD's (Due to History of ICH), Treatment not tolerated
--- NOTE | 2016-07-20 11:24 | Discharge Summary ---
Discharge Summary Date of Service Jul 20, 2016. Discharge Summary Admission Date: Jul 14, 2016 at 01:58 Discharge Date: Jul 20, 2016 Discharge Disposition: Rehab Principal Diagnosis: Left Hip Fracture S/P Mechanical fall Hypertensive Urgency (Resolved) Anemia due to blood loss (Resolving) UTI (Treated) Secondary Diagnoses/Problems: History Sick Sinus Syndrome (S/P PPM) Vitamin D Deficiency Diabetes Type II History Intracranial Hemorrhage Chronic Systolic Heart failure History Fibromyalgia Chronic Thrombocytopenia Procedures: ORIF Vaccinations: NONE Consultations: Orthopedics Pending Studies/Follow-Up: Follow up with Orthopedics as per their recommendations. Medication Reconciliation New Medications: Calcium Carbonate-Vitamin D W/ (Caltrate 600 Plus) 1 Tab Tab 1 TAB PO BID, #60 TAB Diltiazem HCl (Taztia Xt) 120 Mg Capcr 240 MG PO DAILY, #30 Docusate Sodium (Docusate Sodium) 100 Mg Cap 100 MG PO BID PRN for Constipation, #30 CAP Hydrocodone/Acetaminophen 5MG/325MG (Bird In Hand 5MG/325MG) Tab 1-2 TAB PO Q6 PRN for Moderate to Severe Pain, #30 TAB PRN PAIN Senna (Senna Lax) 8.6 Mg Tab 17.2 MG PO HS, #30 TAB Continued Medications: Acetaminophen (Tylenol Arthritis Ext Rel) 650 Mg Tab 650 MG PO QID PRN for Pain Allopurinol (Allopurinol) 300 Mg Tab 150 MG PO QAM Atorvastatin (Lipitor) 40 Mg Tab 40 MG PO DAILY, TAB Cholecalciferol (Vitamin D 400 Iu) 400 Unit Cap 400 INTER.UNIT PO DAILY, CAP Digoxin (Digoxin) 0.125 Mg Tab 0.125 MG PO DAILY@16, #30 TAB Epinephrine (Epipen) 0.3 Mg/0.3 Ml Inj 0.3 MG IM UD PRN for ALLERGIC REACTION ONE INJECTION INTO THIGH NEEDED FOR SEVERE ALLERGIC REACTION. Furosemide (Lasix) 40 Mg Tab 20 MG PO DAILY, TAB Gabapentin (Neurontin) 100 Mg Cap 200 MG PO HS, CAP Insulin Aspart (Novolog) 100 Units/Ml Inj 4 UNITS SQ Insulin Aspart (Novolog) 100 Units/Ml Inj 8 UNITS SQ BID UD TAKE WITH LUNCH & SUPPER Insulin Glargine (Lantus) 100 Unit/Ml Inj 45 UNITS SQ QAM, VIAL Levothyroxine Sodium (Synthroid) 125 Mcg Tab 125 MCG PO DAILY, TAB Lorazepam (Ativan) 0.5 Mg Tab 0.5 MG PO HS Losartan Potassium (Cozaar) 50 Mg Tab 50 MG PO DAILY Magnesium Oxide (Mag-Ox) 400 Mg Tab 400 MG PO BID, 0 Refills Metoprolol Succ (Toprol Xl) (Toprol-Xl) 50 Mg Tabcr 2 TABS PO QPM, #30 TAB Metoprolol Succinate (Toprol Xl) 50 Mg Tabcr 4 TAB PO QAM, #30 TAB Ondansetron Hcl (Zofran) 8 Mg Tab 8 MG PO Q4 PRN for Nausea Spironolactone (Aldactone) 25 Mg Tab 25 MG PO DAILY, TAB Discontinued Medications: Amoxicillin (Amoxil) 500 Mg Tab 2000 MG PO PRN/UD TAKE THIS MEDICATION NEEDED ONE HOUR PRIOR TO PROCEDURES. Diltiazem Hcl Ext Rel (Tiazac) 180 Mg Capcr 180 MG PO DAILY, CAP Admission Information HPI (per Admitting provider): Medical history significant for chronic systolic heart failure, EF 35% to 39%, history of SSS sp PPM, off anticoagulation because of history of frequent falls/ rectus sheath hematoma/ subarachnoid hemorrhage in the past, chronic thrombocytopenia HTN,DM2, insulin requiring;. Recent confinement last September 2014 for rapid AFib. At home, the patient tripped on stairs yesterday. Subsequently fell down, landing on her left side, no chest pain, no sob. Excruciating left hip pain, could not get up. Px brought to Emergency Room. MEDICAL HISTORY: As above. Most recent 2D echo from the office was in November 2015, which showed EF 35-39%, diffuse LV hypokinesis, left atrial enlargement, moderate MR, and moderate TR. Last outpatient [facility] [place] visit was about 2 weeks ago. Px was complaining of increased tiredness and fatigue, shortness of breath, weight up to 14 pounds, and transient episode of chest discomfort as per note. Assessment at that time was decompensated heart failure. Diuretic dose was doubled for the next 5 days. Patient was to return for evaluation in 10 days. Recommend another AVJ ablation by [facility]. (hx partial modified AVJ ablation at [facility]) As per the patient, symptoms, leg swelling better after diuretic medication adjustment. Physical Exam (per Admitting): VITAL SIGNS: Blood pressure noted to be 182/116, pulse rate 105, RR 14, temperature 37.2, and Sats initially 87, later 96 on room air. GENERAL: Noted to be uncomfortable. No respiratory distress. SKIN: Normal color. HEENT: [place] palpable conjunctivae. Dry mucosa. NECK: Supple. CHEST: Clear to auscultation. LUNGS: Decreased breath sounds. HEART: irregular, tachycardic, systolic murmur. ABDOMEN: Some distention, non-tenderness. EXTREMITIES: Tenderness in the left hip. NEUROLOGIC: No gross focality. Hospital Course Echocardiogram: -Left ventricular systolic function is mildly reduced. -Ejection Fraction = 40-45%. -There is moderate concentric left ventricular hypertrophy. -Septal motion is consistent with conduction abnormality. -Otherwise, mild global hypokinesis. -There is mild to moderate tricuspid regurgitation. Intertrochanteric Fracture of Left Hip: Due to mechanical fall. Intramedullary jaspreet to left hip: POD # 5. Could have underlying osteoporosis -Pain control as per need -Appreciate Orthopedic surgery help -Bowel regimen to prevent constipation -Monitoring for post OP anemia. Hypertensive Urgency:Resolved. BP is more stable today. -Continue current meds -Continue to monitor Anemia Due to Acute Blood Loss: Transfused 3 unit of PRBC. -Monitor H/H --Stool occult is negative. UTI:Urine culture:Klebsiella pneumoniae -Continue IV Ceftriaxone (Day # 7) Vit D Deficiency:Continue Calcium, Vit D supplements Vit D levels:13.0 History Sick Sinus Syndrome S/P PPM: H/O Afib. H/O partial modified AVJ ablation at [facility] -Off anticoagulation because of fall risk and multiple bleeding events in the past -Continue Digoxin, Cardizem, BB -Appreciate Cardiology input H/O Intracranial Hemorrhage/Rectus sheath Hematoma: S/P IVC filter. Stable Denies head trauma during fall this encounter -Monitoring H&H -Will transfuse PRBCs PRN if Hb continues to drop Diabetes Type II: Stable -ISS, Lantus, Accu checks Chronic Systolic Heart Failure:: Last EF 35% Improved CHF currently after last outpatient [facility] [place] visit 2 weeks ago w / additional diuretic dosing -Continue digoxin -Resume diuretics Lasix, spironolactone today per cardiology -Cardiology following Chronic Thrombocytopenia:Stable -Monitor platelets H/O Fibromyalgia:Stable DVT Prophylaxis:SCDs, Reason: H/O ICH, thrombocytopenia Code Status:Full code Disposition:Discharge to [facility] later today. Follow up with ortho as per their recommendations. Total time spent on discharge = 42 minutes. This includes examination of the patient, discharge planning, medication reconciliation, and communication with other providers. Discharge Instructions Discharge Goals Goal(s): Decrease discomfort, Improve function, Increase independence, Improve disease control, Improve nutritional status, Learn about illness, Diagnostic testing, Therapeutic intervention Activity Recommendations Activity Limitations: per Instructions/Follow-up section Lifting Limitations: gradually increase as tolerated Exercise/Sports Limitations: gradually increase as tolerated (As per Ortho instructions as we;; PT) Shower/Bathe: keep incision dry . Current Hospital Diet Patient's current hospital diet: Diabetes Type 2 Diet, AHA Diet (Heart Healthy) Discharge Diet Recommended Diet: AHA Diet (Heart Healthy), Diabetes Type 2 Diet Fluid Restriction: 1800 ml (7 cups) Procedures Procedures Performed: Intramedullary Jaspreet Femur, Left long Pending Studies Studies pending at discharge: no Additional Copies To Mo Fontenot D.O.
[2016-07-20 12:45] VITALS: BP 135/75; PULSE 86; TEMP 36.6; O2SAT 95
[2016-07-20] MEDS ORDERED: INSULIN GLARGINE SOLOSTAR 100 UNITS/ML 3 ML PEN SC SCH (21:00)
== END 2016-07-20 13:30 | DRG 481 ==
LOC: ENRESERVTM → ENRESERVDT → EDBD 20:06 → C.EDC 20:07 → C.3E 07-14 01:58
PROVIDERS: ADMIT Internal Medicine; ATTEND Emergency Medicine
PROC: 0QS706Z Reposition Left Upper Femur with Intramedullary Internal Fixation Device, Open Approach (ICD-10-PCS; principal; 2016-07-15 07:30)
DX: S72.142A Displaced intertrochanteric fracture of left femur, initial encounter for closed fracture (principal); N39.0 Urinary tract infection, site not specified; I50.42 Chronic combined systolic (congestive) and diastolic (congestive) heart failure; D62 Acute posthemorrhagic anemia; I11.0 Hypertensive heart disease with heart failure; K21.9 Gastro-esophageal reflux disease without esophagitis; I49.5 Sick sinus syndrome; E55.9 Vitamin D deficiency, unspecified; E11.65 Type 2 diabetes mellitus with hyperglycemia; D69.6 Thrombocytopenia, unspecified; E03.9 Hypothyroidism, unspecified; B96.1 Klebsiella pneumoniae [K. pneumoniae] as the cause of diseases classified elsewhere; M81.0 Age-related osteoporosis without current pathological fracture; W18.09XA Striking against other object with subsequent fall, initial encounter; Z79.4 Long term (current) use of insulin; Z79.899 Other long term (current) drug therapy; Z95.0 Presence of cardiac pacemaker; Z83.3 Family history of diabetes mellitus; Y92.009 Unspecified place in unspecified non-institutional (private) residence as the place of occurrence of the external cause

== ENCOUNTER 2021-03-05 12:48 | Inpatient (IN) ==
[2021-03-05] MEDS ORDERED: SODIUM CHLORIDE 0.9% 1000ML 1,000 ML IV SCH (13:30)
[2021-03-05 13:56] LABS: Basophils # (auto) 0.01 K/uL (0-0.2); Basophils % (auto) 0.2 %; Eosinophils # (auto) 0.08 K/uL (0-0.5); Eosinophils % (auto) 1.2 %; Hematocrit (blood only) 35.8 % (37-47); Hemoglobin 11.3 g/dL (12.0-16.0); Immature Granulocytes # (auto) 0.03 K/uL (0.00-0.02); Immature Granulocytes % (auto) 0.5 %; Mean Corpuscular Hemoglobin 32.7 pg (25-34); Mean Corpuscular Hgb Conc 31.6 g/dL (32-36); Mean Corpuscular Volume 103.5 fL (80-100); Mean Platelet Volume 9.9 fL (7.4-10.4); Monocytes # (auto) 0.78 K/uL (0.11-0.59); Monocytes % (auto) 12.2 %; Neutrophils # (auto) 4.61 K/uL (1.4-6.5); Neutrophils % (auto) 71.9 %; Platelet Count 129 K/uL (130-400); RDW Coefficient of Variation 13.9 % (11.5-14.5); RDW Standard Deviation 52.4 fL (36.4-46.3); Red Blood Count 3.46 M/uL (4.2-5.4); White Blood Count 6.41 K/uL (4.8-10.8)
[2021-03-05 14:13] LABS: Albumin Level 3.7 gm/dl (3.4-5.0); BUN Creatinine Ratio 31.6 (10-20); Calcium 9.9 mg/dl (8.5-10.1); Creatinine Clr Calc Pharmacy 48.8 ml/min; Est GFR (African American) 89.3 ml/min; Est GFR (Non-African American) 77.1 ml/min; Potassium 3.3 mmol/L (3.5-5.1)
--- NOTE | 2021-03-05 14:23 | CT Scan Report ---
CT head/brain wo con CLINICAL HISTORY: 81 years-old Female with AMS, H/o ICH, 6 WK AGO [facility]. Acutely altered mental status TECHNIQUE: Multiple axial CT images of the head were obtained without contrast. A dose lowering tech nique was utilized adhering to the principles of ALARA. CT DOSE: 537.48 mGy.cm COMPARISON: Head CT 04/17/2014. FINDINGS: There is no midline shift, intracranial mass, hydrocephalus, territorial ischemia or abnormal extra-a xial collection. There is progressive encephalomalacia with moderate loss of the left cerebellar carlee sphere suggestive of chronic infarct. Age-related involutional changes with ex vacuo ventriculomegaly . White matter hypodensities suggest chronic microvascular ischemic disease. Senescent calcifications of the lentiform nuclei. Cerebral vascular calcifications. Left parietal scalp hematoma measures 4.2 x 0.8 cm. Minimal subcentimeter focus of adjacent cortically based increased attenuation of the left parietal lobe on image 19 series 2. There is a suggested small associated scalp laceration. The calvarium is intact. Prior bilateral lens repair. The paranasal sinuses, mastoid air cells, and m iddle ear cavities are clear. IMPRESSION: 1. Suspected tiny acute versus subacute left parietal lobe subarachnoid hemorrhage adjacent to the le ft parietal scalp hematoma. A 12 to 24 hour follow-up head CT is recommended. 2. Chronic left cerebellar infarct. ACT 112: Negative or not required by law. The above report was generated using voice recognition software. It may contain grammatical, syntax o r spelling errors. Electronically signed by: Sarthak Quigley M.D. 03/05/2021 2:22 PM
[2021-03-05] MEDS ORDERED: DEXTROSE 50% 50 ML SYRINGE IV ONE (14:31)
[2021-03-05 14:32] LABS: Albumin Globulin Ratio 0.8 (0.9-2); Bilirubin,Total 0.5 mg/dl (0.2-1); Globulin 4.9 gm/dl (2.5-4.0); Thyroid Stimulating Hormone 6.09 uIu/ml (0.300-4.500); Total Protein 8.6 gm/dl (6.4-8.2); Troponin I 0.079 ng/ml (0-0.045)
[2021-03-05] MEDS ORDERED: POTASSIUM CHLORIDE CRTAB 20 MEQ TABCR PO STA (14:33)
[2021-03-05] MEDS ORDERED: dilTIAZem HCl 5 MG/ML 5 ML VIAL IV STA (14:38)
--- NOTE | 2021-03-05 14:38 | XRay Report ---
XR chest 1V portable HISTORY: 81 years-old Female weakness acute weakness COMPARISON: Chest radiograph 07/16/2016 TECHNIQUE: Portable AP view of the chest FINDINGS: Marked enlargement of the cardiac silhouette has progressively increased in size from comparison. Lef t subclavian pacer. Calcified plaque of the thoracic aorta. Pulmonary vascular congestion with mild i nterstitial coarsening. No pneumothorax or large pleural effusion. No lobar airspace consolidation. H iatal hernia. Degenerative changes of the shoulders and spine. IMPRESSION: 1. Cardiomegaly and pulmonary vascular congestion with questioned pulmonary edema. 2. Hiatal hernia. ACT 112: Negative or not required by law. The above report was generated using voice recognition software. It may contain grammatical, syntax o r spelling errors. Electronically signed by: Sarthak Quigley M.D. 03/05/2021 2:37 PM
[2021-03-05 14:45] LABS: T4 Free Thyroxine 0.92 ng/dl (0.8-1.6)
[2021-03-05] MEDS ORDERED: METOPROLOL SUCC 50MG EXT REL TAB PO STA (14:58)
[2021-03-05] MEDS ORDERED: FUROSEMIDE 40 MG/4 ML VIAL IV ONE (17:00)
--- NOTE | 2021-03-05 17:29 | History & Physical Report ---
Date of Service March 05, 2021 Assessment & Plan (1) Syncope: (2) Hypoglycemia: Plan: Insulin-dependent DM II Patient is 81-year-old female with PMH tachybrady syndrome, sinus node dysfunction s/p dual-chamber pacemaker, s/p generator change on 12/13/2020, h/o permanent atrial fibrillation s/p multiple cardioversions and ablation not on anticoagulation secondary to fall history and history of intracranial hemorrhage in 2009 with supratherapeutic INR, residual left-sided weakness, ambulates with walker, insulin-dependent DM II, HTN, HLD, chronic combined CHF, pulmonary hypertension, H/O IVC filter, chronic iron deficiency, gout, hypothyroidism presented to ER with complaint of syncope today and was found to have BSG of 38 and was given 250 mL D10 with repeat BSG of 178. Patient had 50 units Lantus and 10 units Humalog this morning and did eat breakfast. Missed dinner last night. Patient takes 50 units Lantus in the morning. She has Humalog to use 10 units with breakfast, 5 units with lunch and 18 units with dinner plus has correction sliding scale however patient only uses 10 units Humalog at breakfast does not take further throughout the day. Suspect syncope secondary to hypoglycemia. DDX: brain bleed, arrhythmia In ER BSG 99 which later dropped to 63 and was given 25 mL of dextrose 50% Admit tele to monitor for arrhythmias Pacemaker interrogation A1c: 13 and 11/16/2020 Hold home insulin, NovoLog correction insulin for now Monitor BSG's, and adjust insulin as needed Glycemic pharmacy consult for assistance with insulin adjustment Suspicious patient's syncope and fall episode 6 weeks ago may have been secondary to hypoglycemia A1c in a.m. (3) Subarachnoid hemorrhage: Plan: History of syncopal episode and fall 6 weeks ago. Reported was standing in kitchen and next thing she knew she woke up lying on floor with blood coming from her head. Denies any dizziness, chest pain, shortness of breath, palpitations, visual changes prior to episode. Did not evaluate BSG at the time. Evaluated by PCP and noted to have left scalp laceration and scalp hematoma. Patient had denied CT head or ER evaluation at that time. Was reported patient was having headaches, had episode of visual loss for 2 days which has since resolved. Patient denies any falls since [address] head: 1. Suspected tiny acute versus subacute left parietal lobe subarachnoid hemorrhage adjacent to the left parietal scalp hematoma. 2. Chronic left cerebellar infarct. Neurosurgery at [facility] was contacted-Dr. Robertson, who feels patient does not require transfer and recommends repeat CT head in 24 hours No acute neuro deficits noted currently Neurochecks every [address] in 24 hours Neurology consult (4) Acute on chronic combined systolic (congestive) and diastolic (congestive) heart failure: Plan: Patient satting in the 90s on room air. There is a reading of O2 sat 87% on room air however it is noted pulse ox with poor waveform CXR: Cardiomegaly and pulmonary vascular congestion History echo 08/2020. EF: 55-59%, moderate pulmonary hypertension, mild aortic regurgitation, moderate mitral regurgitation, moderate tricuspid vegetation Patient missed Lasix and spironolactone dosing today Lasix 40 mg IV now and reassess volume status tomorrow Monitor I's and O's, daily weights, low-sodium diet Patient prescribed spironolactone 25 mg daily however has been taking 12.5 mg daily. Plan to resume spironolactone tomorrow Resting echo BMP in a.m. #. Atrial fibrillation with RVR. Chronic atrial fibrillation Chronic atrial fibrillation status post cardioversions and ablation in past. Not on anticoagulation secondary to recurrent falls, history of rectus sheath hematoma, subarachnoid hemorrhage Today in ER patient noted to be in atrial fibrillation with heart rate in the 1 teens, BP 127/97, 97% on room air. Patient missed a.m. metoprolol succinate In ER given metoprolol succinate 50 mg p.o., Cardizem 10 mg IV. Heart rate down to 60s and 70s. Resume home Cardizem Patient was prescribed metoprolol succinate 200 mg in a.m. and 100 mg in p.m. however takes 100 mg in a.m. and 200 mg in p.m. Resume metoprolol succinate Digoxin Level pending Continue digoxin If no improvement or worsening consider cardiology consult #. Elevated troponin Troponin: 0.079. Denies chest pain or shortness of breath Suspect secondary to demand ischemia Trend troponin Repeat EKG in a.m. #. Leg swelling History IVC Filter Bilateral leg swelling with right greater than left. Is volume overloaded currently. Treat as above Rule out DVT. Venous Doppler pending #History of tachybrady syndrome, sinus node dysfunction S/P Pacemaker. Generator change on 12/13/2020 Pacemaker interrogation #Hypokalemia K: 3.3. Magnesium: 2.0 In ER given 40 mEq KCl p.o. Replace and Monitor BMP #History of frequent falls Patient uses walker at home PT/OT eval #HTN Continue losartan, Cardizem, metoprolol succinate #HLD Continue atorvastatin #Hypothyroidism Continue levothyroxine DVT Prophylaxis -SCDs Full code as per discussion with pt Follows with Dr Mo Fontenot for routine care Pt was seen and care coordinated with Dr Roberts. See addendum History of Present Illness Chief Complaint: Syncope Primary Care Provider: Mo Fontenot DO Patient is 81-year-old female with PMH tachybrady syndrome, sinus node dysfunction s/p dual-chamber pacemaker, s/p generator change on 12/13/2020, h/o permanent atrial fibrillation s/p multiple cardioversions and ablation not on anticoagulation secondary to fall history and history of intracranial hemorrhage in 2009 with supratherapeutic INR, residual left-sided weakness, ambulates with walker, insulin-dependent DM II, HTN, HLD, chronic combined CHF, pulmonary hypertension, H/O IVC filter, chronic iron deficiency, gout, hypothyroidism presented to ER with complaint of syncope. Reports woke up this morning was feeling fine checked her blood sugar and it was 173 and then she took 50 units of Lantus and 10 units of Humalog. She reports eating a bowl of oatmeal, half a banana and cup of milk. Did not eat dinner last night. She went to [employer]. 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 Next thing she knows she woke up on floor and was told that she had syncopal episode. Denies dizziness, chest pain, palpitations, shortness of breath prior to episode. It is reported patient was found to have BSG of 38 and was given 250 ML D10 with repeat BSG of 178. Patient with BSG of 99 upon ER arrival. Patient did not have morning metoprolol, Lasix or spironolactone today. Patient states chronic bilateral lower extremity edema however the past month feels like right lower leg is larger than left and has associated discomfort to entire right lower leg. Denies any erythema or warmth. Denies any known injury or trauma. Denies fever/chills, diaphoresis, N/V/D/C, neck pain, CP, SOB, orthopnea, palpitations, cough, sore throat, choking, otalgia, rhinorrhea, abdominal pain, paresthesias, rashes, urinary symptoms. Of note patient does report 6 weeks ago had what sounds like syncopal episode when she was in her kitchen standing and then she woke up to being on floor with blood coming from her scalp. She denies any known symptoms prior to this episode. Did not take blood sugar at that time. She is unsure if she had skipped meals that day. She did follow-up with PCP on 01/18/2021 and was noted to have left scalp hematoma and laceration and she was complaining of headache at that time. Patient was instructed to have CT scan of head and go to ER however patient denied. Had follow-up with PCP on 01/31/2021 and had reported improvement of headaches however had reported had episode of vision loss for 2 days. Again at that time there was concern for possible brain bleed and patient refused ER. She reports since that time has not had further headaches and denies any further vision loss. History of recurrent falls. Patient reports falls are usually secondary to her losing her balance or her walker getting caught on something causing her to fall Reports fall approximately every 6 to 8 weeks. This fall 6 weeks ago was unlike her other falls as she does not remember what happened. Patient prescribed metoprolol succinate 200 mg in the morning and 100 mg in the evening however patient takes 100 mg in the morning and 200 mg in the evening. Patient takes 20 mg Lasix in the morning and is prescribed spironolactone 25 mg in the morning however has only been taking 12.5. Patient takes 50 units Lantus in the morning. She has Humalog to use 10 units with breakfast, 5 units with lunch and 18 units with dinner plus has correction sliding scale however patient only uses 10 units Humalog at breakfast does not take further throughout the day. In ER patient noted to be in atrial fibrillation with heart rate in the 1 teens, BP 127/97, 97% on room air. No leukocytosis, Hgb: 11.3, K: 3.3, glucose: 99 down to 63 and given 25 mL of dextrose 50%. Troponin: 0.079 In ER patient given her missed dose of metoprolol succinate 50 mg p.o., Cardizem 10 mg IV with pulse down to 60s and 70s. CT head: 1. Suspected tiny acute versus subacute left parietal lobe subarachnoid hemorrhage adjacent to the left parietal scalp hematoma. 2. Chronic left cerebellar infarct. CXR: Cardiomegaly and pulmonary vascular congestion Neurosurgery at [facility] was contacted-Dr. Robertson, who feels patient does not require transfer and recommends repeat CT head in 24 hours. Allergies Allergy/AdvReac Type Severity Reaction Status Date / Time citalopram Allergy Unknown Verified 10/29/15 10:41 paroxetine Allergy Unknown Verified 10/29/15 10:41 Sulfa (Sulfonamide Allergy Unknown TOLERATES Verified 10/29/15 10:41 Antibiotics) LASIX venom-wasp protein Allergy Unknown HIVES Verified 10/29/15 10:41 celecoxib AdvReac Mild N/V Verified 03/03/12 19:22 Home Medications Medication Instructions Recorded Confirmed Type amoxicillin 500 mg capsule 500 mg PO UNKNOWN 12/13/20 03/05/21 History atorvastatin 40 mg tablet 40 mg PO HS 12/13/20 03/05/21 History insulin glargine 100 unit/mL (3 50 unit SUBCUT QAM 12/13/20 03/05/21 History mL) subcutaneous pen (Lantus Solostar U-100 Insulin) insulin lispro 100 unit/mL See Rx Instructions .ROUTE .COMPLEX 12/13/20 03/05/21 History subcutaneous pen (Humalog KwikPen (U-100) Insulin) levothyroxine 75 mcg tablet 75 mcg PO HS 12/13/20 03/05/21 History losartan 50 mg tablet 50 mg PO HS 12/13/20 03/05/21 History magnesium oxide 400 mg PO DAILY 12/13/20 03/05/21 History metoprolol succinate 50 mg 50 mg PO UD 12/13/20 03/05/21 History tablet,extended release 24 hr rizatriptan 5 mg tablet 0 mg PO .COMPLEX 12/13/20 12/13/20 History spironolactone 25 mg tablet 12.5 mg PO DAILY 12/13/20 03/05/21 History acetaminophen 500 mg tablet 500 mg PO Q6H PRN 03/05/21 03/05/21 History (Acetaminophen Extra Strength) allopurinol 300 mg tablet 300 mg PO HS 03/05/21 03/05/21 History cholecalciferol (vitamin D3) 25 25 mcg PO DAILY 03/05/21 03/05/21 History mcg (1,000 unit) tablet digoxin 125 mcg (0.125 mg) tablet 125 mcg PO DAILY@199903/05/21 03/05/21 History diltiazem HCl 240 mg 240 mg PO HS 03/05/21 03/05/21 History capsule,extended release 24 hr epinephrine 0.3 mg/0.3 mL 0.3 mg IM Q4H PRN 03/05/21 03/05/21 History injection, auto-injector furosemide 40 mg tablet 20 mg PO QAM 03/05/21 03/05/21 History gabapentin 300 mg capsule 300 mg PO HS 03/05/21 03/05/21 History hydrocodone 5 mg-acetaminophen 325 1 tab PO Q6 PRN 03/05/21 03/05/21 History mg tablet Past Med/Surg History Medical History (Updated 03/05/21 @ 17:46 by Polly Marinelli PA-C) Afib Cerebral hemorrhage "2010 left hemiparesis" Chronic anemia Chronic combined systolic and diastolic CHF (congestive heart failure) Diabetes mellitus, type II Gout Hematoma of rectus sheath Hemiplegia History of - cerebrovascular accident HLD (hyperlipidemia) HTN (hypertension) Hypothyroidism Pacemaker Presence of IVC filter Tachy-jodi syndrome Surgical History (Updated 03/05/21 @ 17:38 by Polly Marinelli PA-C) Status post appendectomy Status post cardiac pacemaker procedure Status post cataract extraction Status post cholecystectomy Status post hysterectomy Status post insertion of inferior vena caval filter Family History (Updated 03/05/21 @ 17:39 by Polly Marinelli PA-C) Daughter Breast cancer Mother Cancer pancreatic Father Heart disease Social History Smoking Status: Never smoker Second Hand Exposure: No; Hx Alcohol Use: No Hx Substance Use: No Retort Firer Required: No Beliefs That Will Affect Care: None Current Living Situation: Spouse Feels Safe at Home: Yes Assistive Devices: None and Walker Review of Systems Review of Systems: All systems reviewed & are unremarkable except as noted in HPI & below Physical Exam Physical Exam: General: no distress, WDWN Head: normocephalic, atraumatic Eyes: PERRL, EOM's intact, conjunctiva non-injected, anicteric ENT: normal inspection external ears, nose, mucous membranes moist Neck: supple, trachea midline Lungs: no respiratory distress, sat 94% on RA, +rales bases bilaterally CV: Irregularly irregular, rate 76, 2+ pretibial edema Abd: normal BS, soft, non-tender Ext: no cyanosis, right lower leg larger than left with chronic venous stasis changes, no erythema or warmth, diffuse tenderness to palpation right lower leg Neuro: A&O x 3, normal affect, Visual king intact. PERRL, EOMs intact. No nystagmus, The face is strong and symmetric, Hearing grossly intact, Soft palate elevates symmetrically, no dysarthria, shoulder shrug intact, Tongue is midline, normal movement, no fasciculations. Chronic left upper and lower extremity weakness reported however currently both 4/5. Skin: warm, dry Results & Data Results & Data ([facility]) Vital Signs (Past 12 Hours) Vital Signs Pulse Resp BP Pulse Ox 03/05/21 15:30 92 H 17 128/77 87 L 03/05/21 15:15 105 H 22 95 03/05/21 15:00 115 H 18 122/84 97 03/05/21 14:32 110 H 18 127/86 96 03/05/21 13:30 114 H 20 129/98 95 03/05/21 13:00 98 H 15 95 03/05/21 12:52 110 H 18 127/97 97 Laboratory Results Short CBC 03/05/21 Range/Units 13:46 WBC 6.41 (4.8-10.8) K/uL Hgb 11.3 L (12.0-16.0) g/dL Hct 35.8 L (37-47) % Plt Count 129 L (130-400) K/uL BMP 03/05/21 13:46 Sodium 140 Potassium 3.3 L Chloride 106 Carbon Dioxide 25 BUN 23 H Creatinine 0.74 Glucose 63 L Calcium 9.9 Cardiac Enzymes 03/05/21 Range/Units 13:46 Troponin I 0.079 H* (0-0.045) ng/ml Liver Function 03/05/21 Range/Units 13:46 Total Bilirubin 0.5 (0.2-1) mg/dl AST 37 (15-37) U/L ALT 39 (12-78) U/L Alkaline Phosphatase 121 H (45-117) U/L Albumin 3.7 (3.4-5.0) gm/dl Diagnostic Findings Chest X-Ray 03/05/21 13:23 XR chest 1V portable HISTORY: 81 years-old Female weakness acute weakness COMPARISON: Chest radiograph 07/16/2016 TECHNIQUE: Portable AP view of the chest FINDINGS: Marked enlargement of the cardiac silhouette has progressively increased in size from comparison. Left subclavian pacer. Calcified plaque of the thoracic aorta. Pulmonary vascular congestion with mild interstitial coarsening. No pneumothorax or large pleural effusion. No lobar airspace consolidation. Hiatal hernia. Degenerative changes of the shoulders and spine. IMPRESSION: 1. Cardiomegaly and pulmonary vascular congestion with questioned pulmonary edema. 2. Hiatal hernia. ACT 112: Negative or not required by law. The above report was generated using voice recognition software. It may contain grammatical, syntax or spelling errors. Electronically signed by: Sarthak Quigley M.D. 03/05/2021 2:[address] 03/05/21 13:35 CT head/brain wo con CLINICAL HISTORY: 81 years-old Female with AMS, H/o ICH, 6 WK AGO [facility]. Acutely altered mental status TECHNIQUE: Multiple axial CT images of the head were obtained without contrast. A dose lowering technique was utilized adhering to the principles of ALARA. CT DOSE: 537.48 mGy.cm COMPARISON: Head CT 04/17/2014. FINDINGS: There is no midline shift, intracranial mass, hydrocephalus, territorial ischemia or abnormal extra-axial collection. There is progressive encephalomalacia with moderate loss of the left cerebellar hemisphere suggestive of chronic infarct. Age-related involutional changes with ex vacuo ventriculomegaly. White matter hypodensities suggest chronic microvascular ischemic disease. Senescent calcifications of the lentiform nuclei. Cerebral vascular calcifications. Left parietal scalp hematoma measures 4.2 x 0.8 cm. Minimal subcentimeter focus of adjacent cortically based increased attenuation of the left parietal lobe on image 19 series 2. There is a suggested small associated scalp laceration. The calvarium is intact. Prior bilateral lens repair. The paranasal sinuses, mastoid air cells, and middle ear cavities are clear. IMPRESSION: 1. Suspected tiny acute versus subacute left parietal lobe subarachnoid hemorrhage adjacent to the left parietal scalp hematoma. A 12 to 24 hour follow- up head CT is recommended. 2. Chronic left cerebellar infarct. ACT 112: Negative or not required by law. The above report was generated using voice recognition software. It may contain grammatical, syntax or spelling errors. Electronically signed by: Sarthak Quigley M.D. 03/05/2021 2:22 PM Code Status & VTE Plan VTE Prophylaxis Plan VTE Prophylaxis will be ordered: Yes Supervising Physician Co-Signing Physician Notes Care coordinated with Polly Marinelli PA-C. Agree with above note. Patient seen and examined. Please refer to her notes for full details. Vital signs reviewed. Physical exam: General exam: Alert and oriented. Not in acute distress. CVS: S1 and S2 heard, regular rate and rhythm, no murmurs. RS: Clear to auscultation, no wheezing or crackles. ABD: Soft, bowel sounds present, nontender, no distention. 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 EXT: No edema, no erythema. Labs: Reviewed. Assessment and plan: 81Y F presents with syncope and hypoglycemia. Syncope mostly from hypoglycemia will monitor in tele echo monitor blood sugars Hypoglycemia seems brittle DM sugars high and low as per patient holding home insulin placed on correction insulin follow blood sugars closely Glycemic pharmacy consulted. Subarachnoid Hemorrhage suspected E spoke with neurosurgery Dieterich to repeat ct head in 24hrs Neurology consult Fell today with syncope episode Also fell about 6 weeks ago and had left scalp hematoma- saw PCP and refused to come to ER at that time. Other diagnosis and plan of care as per Polly Marinelli PA-C. Carlos davis MD.
--- NOTE | 2021-03-05 18:50 | Ultrasound Report ---
US venous doppler LE RT HISTORY: 81 years-old Female R/O DVT acute pain and swelling of the lower leg COMPARISON: Doppler study 09/18/2017 TECHNIQUE: Multiple real-time sonographic images of the right lower extremity deep venous structures were obtained assessing grayscale appearance, color and spectral flow. FINDINGS: Normal flow, compressibility, phasicity and augmentation. Subcutaneous edema. IMPRESSION: No sonographic evidence of deep venous thrombosis. ACT 112: Negative or not required by law. The above report was generated using voice recognition software. It may contain grammatical, syntax o r spelling errors. Electronically signed by: Sarthak Quigley M.D. 03/05/2021 6:49 PM
[2021-03-05 19:50] LABS: INR 1.2 (0.9-1.1); Partial Thromboplastin Ratio 0.9; Partial Thromboplastin Time 24.6 Seconds (21.0-31.0); Prothrombin Time 11.8 Seconds (9.0-12.0)
[2021-03-05] MEDS ORDERED: GLUCOSE 10 TABS/TUBE PO PRN (19:59)
[2021-03-05] MEDS ORDERED: DEXTROSE 50% 50 ML SYRINGE IV PRN (19:59)
[2021-03-05] MEDS ORDERED: GLUCOSE 40% GEL 15 GM TUBE PO PRN (19:59)
[2021-03-05] MEDS ORDERED: GLUCAGON FOR INJ 1 MG VIAL SQ PRN (19:59)
[2021-03-05] MEDS ORDERED: PHARMACY GLYCEMIC MGMT CONSULT PRN (19:59)
[2021-03-05] MEDS ORDERED: METOPROLOL SUCC 50MG EXT REL TAB PO ONE (21:00)
[2021-03-05] MEDS ORDERED: POTASSIUM CHLORIDE CRTAB 20 MEQ TABCR PO ONE (21:00)
[2021-03-05] MEDS: allopurinoL 300 MG TAB PO SCH (21:39)
[2021-03-05] MEDS: GABAPENTIN 300 MG CAP PO SCH (21:39)
[2021-03-05] MEDS: DIGOXIN 0.125 MG TAB PO SCH (21:39)
[2021-03-05] MEDS: LOSARTAN POTASSIUM 50 MG TAB PO SCH (21:39)
[2021-03-05] MEDS: ATORVASTATIN 40 MG TAB PO SCH (21:39)
[2021-03-05] MEDS: INSULIN ASPART 100 UNITS/ML 3 ML PEN SC SCH ×2 (21:47→23:43)
--- NOTE | 2021-03-05 22:08 | Emergency Department Note ---
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 The patient's blood sugar was noted to be in the 30s by EMS. She was given IV D10 with resolution of symptoms. Patient does regulate her own medications at home. She has multiple medical problems including congestive heart failure and atrial fibrillation. She is diabetic and uses insulin. She denies anything abnormal lately. She has been eating and drinking well. She states she took her medications as usual and ate breakfast, she has no idea why her blood sugar would drop. Her daughter states about 6 weeks ago she fell and hit her head " hard" developed a hematoma on the side of her head. She refused any medical attention at that time. She did not lose consciousness necessarily but did not notify her family of the incident for several days. The patient has been doing fairly well since that time. REVIEW OF SYSTEMS: A review of systems was performed with positives and pertinent negatives listed in the history of present illness. 10 systems were reviewed and are otherwise negative. ALLERGIES: see below MEDICATIONS: see below PMH: see below SOCIAL HISTORY: see below DDx: Vasovagal event, dehydration, infection, hypoglycemia, electrolyte abnormalities, cardiac sources, intracerebral event, pulmonary embolism, seizure, toxicologic, neurologic, as well as other pathologies. PHYSICAL EXAM: Vital signs reviewed. General: Chronically ill-appearing 81-year-old female, in no significant distress. HEENT: No scleral icterus, PERRLA, neck supple. L parietal hematoma noted. Cardiovascular: Tachycardic, irregular, systolic ejection murmur Pulmonary: Clear to auscultation bilaterally, normal work of breathing. Abdomen: Soft, nontender, nondistended, positive bowel sounds. Musculoskeletal: Atraumatic, no peripheral edema. Neurologic: Patient awake alert and oriented x 3, speech is clear but somewhat slow to respond/off baseline per daughter Skin: Warm, dry, no rash EMERGENCY DEPARTMENT COURSE/MDM: This patient was evaluated and appeared to be in no significant distress. IV access was obtained and laboratory work was drawn. Patient's blood sugar was noted to be dropping once again however she was given p.o. food and fluids. IV hydration was initiated. Patient was given IV Cardizem and p.o. metoprolol for rate control. Patient did not take her morning medications. Laboratory work is fairly reassuring, troponin is mildly elevated however it has been for several years and may be chronic. Head CT was performed and reveals a tiny subarachnoid underneath the area of hematoma consistent with her fall 6 weeks ago. Radiology has requested follow-up imaging in 12 to 24 hours. This case was discussed with neurosurgery at [facility]. They were comfortable that this is likely posttraumatic and the patient could remain at our facility until acuity is determined. Patient and daughter were informed of these findings and plan and agreed. The [facility] hospitalist has been consulted and agreed. MONITORING: An order for cardiac monitoring was placed and the patient is noted to be in an atrial fibrillation at 114 beats per minute. RADIOLOGY: see below EKG: Atrial fibrillation 103 bpm. Left axis deviation. PVC vs aberrantly conducted complexes. Prolonged QT interval at 568. DISPOSITION: admit Past Med/Surg History Medical History Afib Cerebral hemorrhage "2010 left hemiparesis" Chronic anemia Chronic combined systolic and diastolic CHF (congestive heart failure) Diabetes mellitus, type II Gout Hematoma of rectus sheath Hemiplegia History of - cerebrovascular accident HLD (hyperlipidemia) HTN (hypertension) Hypothyroidism Pacemaker Presence of IVC filter Tachy-jodi syndrome Surgical History Status post appendectomy Status post cardiac pacemaker procedure Status post cataract extraction Status post cholecystectomy Status post hysterectomy Status post insertion of inferior vena caval filter Family History Daughter Breast cancer Mother Cancer pancreatic Father Heart disease Social History Smoking Status: Never smoker Second Hand Exposure: No; Do You Dip or Chew Tobacco: No; Hx Alcohol Use: No Hx Substance Use: No Preferred Language: French Communication Ability: Effective Wreath Inspector Required: No Beliefs That Will Affect Care: None Current Living Situation: Spouse Other Information That Helps Us Care for You: No Feels Safe at Home: Yes Safety Concerns: Feels Safe At This Time Assistive Devices: Glasses Allergies Allergies Allergy/AdvReac Type Severity Reaction Status Date / Time citalopram Allergy Unknown Verified 10/29/15 10:41 paroxetine Allergy Unknown Verified 10/29/15 10:41 Sulfa (Sulfonamide Allergy Unknown TOLERATES Verified 10/29/15 10:41 Antibiotics) LASIX venom-wasp protein Allergy Unknown HIVES Verified 10/29/15 10:41 celecoxib AdvReac Mild N/V Verified 03/03/12 19:22 Home Meds Home Medications Medication Instructions Recorded Confirmed amoxicillin 500 mg capsule 500 mg PO UNKNOWN 12/13/20 03/05/21 atorvastatin 40 mg tablet 40 mg PO HS 12/13/20 03/05/21 insulin glargine 100 unit/mL (3 50 unit SUBCUT QAM 12/13/20 03/05/21 mL) subcutaneous pen (Lantus Solostar U-100 Insulin) insulin lispro 100 unit/mL See Rx Instructions .ROUTE .COMPLEX 12/13/20 03/05/21 subcutaneous pen (Humalog KwikPen (U-100) Insulin) levothyroxine 75 mcg tablet 75 mcg PO HS 12/13/20 03/05/21 losartan 50 mg tablet 50 mg PO HS 12/13/20 03/05/21 magnesium oxide 400 mg PO DAILY 12/13/20 03/05/21 metoprolol succinate 50 mg 50 mg PO UD 12/13/20 03/05/21 tablet,extended release 24 hr rizatriptan 5 mg tablet See Rx Instructions .ROUTE 12/13/20 03/06/21 .COMPLEX PRN spironolactone 25 mg tablet 12.5 mg PO DAILY 12/13/20 03/05/21 acetaminophen 500 mg tablet 500 mg PO Q6H PRN 03/05/21 03/05/21 (Acetaminophen Extra Strength) allopurinol 300 mg tablet 300 mg PO HS 03/05/21 03/05/21 cholecalciferol (vitamin D3) 25 25 mcg PO DAILY 03/05/21 03/05/21 mcg (1,000 unit) tablet digoxin 125 mcg (0.125 mg) tablet 125 mcg PO DAILY@199903/05/21 03/05/21 diltiazem HCl 240 mg 240 mg PO HS 03/05/21 03/05/21 capsule,extended release 24 hr epinephrine 0.3 mg/0.3 mL 0.3 mg IM Q4H PRN 03/05/21 03/05/21 injection, auto-injector furosemide 40 mg tablet 20 mg PO QAM 03/05/21 03/05/21 gabapentin 300 mg capsule 300 mg PO HS 03/05/21 03/05/21 hydrocodone 5 mg-acetaminophen 325 1 tab PO Q6 PRN 03/05/21 03/05/21 mg tablet Results & Data (ED) Vital Signs Vital Signs - 24 hr 03/05/21 12:52 03/05/21 13:00 03/05/21 13:30 Pulse Rate 110 H 98 H 114 H Pulse Rate from SpO2 Sensor 108 H 107 H Respiratory Rate 18 15 20 Blood Pressure 127/97 129/98 Blood Pressure Mean 107 108 Blood Pressure Position Lying Pulse Oximetry 97 95 95 Oxygen Delivery Method Room Air Room Air Room Air Sepsis Recent Fever Within 48 Hours No Sepsis New/Unexplained Change in Mental Status N/A Sepsis Action Taken by Nursing No Action Required 03/05/21 14:32 03/05/21 15:00 03/05/21 15:15 Pulse Rate 110 H 115 H 105 H Pulse Rate from SpO2 Sensor 110 H Respiratory Rate 18 18 22 Blood Pressure 127/86 122/84 Blood Pressure Mean 99 96 Blood Pressure Position Pulse Oximetry 96 97 95 Oxygen Delivery Method Room Air Room Air Room Air Sepsis Recent Fever Within 48 Hours Sepsis New/Unexplained Change in Mental Status Sepsis Action Taken by Nursing 03/05/21 15:30 Pulse Rate 92 H Pulse Rate from SpO2 Sensor 103 H Respiratory Rate 17 Blood Pressure 128/77 Blood Pressure Mean 94 Blood Pressure Position Pulse Oximetry 87 L Oxygen Delivery Method Sepsis Recent Fever Within 48 Hours Sepsis New/Unexplained Change in Mental Status Sepsis Action Taken by Skilled Nursing Medications Current Medication List: was personally reviewed by me Laboratory Data Attestation: I reviewed the patient's lab results. Result diagrams: 03/08/21 05:55 03/10/21 10:17 Lab Results 03/05/21 03/05/21 03/05/21 Range/Units 12:59 13:46 13:46 WBC 6.41 (4.8-10.8) K/uL RBC 3.46 L (4.2-5.4) M/uL Hgb 11.3 L (12.0-16.0) g/dL Hct 35.8 L (37-47) % MCV 103.5 H (80-100) fL MCH 32.7 (25-34) pg MCHC 31.6 L (32-36) g/dL RDW Std Deviation 52.4 H (36.4-46.3) fL RDW Coeff of Chano 13.9 (11.5-14.5) % Plt Count 129 L (130-400) K/uL MPV 9.9 (7.4-10.4) fL Immature Gran % (Auto) 0.5 % Neut % (Auto) 71.9 % Lymph % (Auto) 14.0 % [place] % (Auto) 12.2 % Eos % (Auto) 1.2 % Baso % (Auto) 0.2 % Neut # (Auto) 4.61 (1.4-6.5) K/uL Lymph # (Auto) 0.90 L (1.2-3.4) K/uL [place] # (Auto) 0.78 H (0.11-0.59) K/uL Eos # (Auto) 0.08 (0-0.5) K/uL Baso # (Auto) 0.01 (0-0.2) K/uL Immature Gran # (Auto) 0.03 H (0.00-0.02) K/uL Sodium 140 (136-145) mmol/L Potassium 3.3 L (3.5-5.1) mmol/L Chloride 106 (98-107) mmol/L Carbon Dioxide 25 (21-32) mmol/L Anion Gap 9.0 (3-11) BUN 23 H (7-18) mg/dl Creatinine 0.74 (0.6-1.2) mg/dl Est Cr Clr Drug Dosing 48.8 ml/min Est GFR ( Amer) 89.3 ml/min Est GFR (Non-Af Amer) 77.1 ml/min BUN/Creatinine Ratio 31.6 H (10-20) Glucose 63 L (70-99) mg/dl POC Glucose 99 (70-99) mg/dl Calcium 9.9 (8.5-10.1) mg/dl Magnesium 2.0 (1.8-2.4) mg/dl Total Bilirubin 0.5 (0.2-1) mg/dl AST 37 (15-37) U/L ALT 39 (12-78) U/L Alkaline Phosphatase 121 H (45-117) U/L Troponin I 0.079 H* (0-0.045) ng/ml NT-Pro-B Natriuret Pep 8819 H (0-1800) pg/ml Total Protein 8.6 H (6.4-8.2) gm/dl Albumin 3.7 (3.4-5.0) gm/dl Globulin 4.9 H (2.5-4.0) gm/dl Albumin/Globulin Ratio 0.8 L (0.9-2) TSH 6.090 H (0.300-4.500) uIu/ml Free T4 0.92 (0.8-1.6) ng/dl SARS-CoV-2, RNA, NAAT (NEGATIVE) 03/05/21 03/05/21 Range/Units 14:31 15:45 WBC (4.8-10.8) K/uL RBC (4.2-5.4) M/uL Hgb (12.0-16.0) g/dL Hct (37-47) % MCV (80-100) fL MCH (25-34) pg MCHC (32-36) g/dL RDW Std Deviation (36.4-46.3) fL RDW Coeff of Chano (11.5-14.5) % Plt Count (130-400) K/uL MPV (7.4-10.4) fL Immature Gran % (Auto) % Neut % (Auto) % Lymph % (Auto) % [place] % (Auto) % Eos % (Auto) % Baso % (Auto) % Neut # (Auto) (1.4-6.5) K/uL Lymph # (Auto) (1.2-3.4) K/uL [place] # (Auto) (0.11-0.59) K/uL Eos # (Auto) (0-0.5) K/uL Baso # (Auto) (0-0.2) K/uL Immature Gran # (Auto) (0.00-0.02) K/uL Sodium (136-145) mmol/L Potassium (3.5-5.1) mmol/L Chloride (98-107) mmol/L Carbon Dioxide (21-32) mmol/L Anion Gap (3-11) BUN (7-18) mg/dl Creatinine (0.6-1.2) mg/dl Est Cr Clr Drug Dosing ml/min Est GFR ( Amer) ml/min Est GFR (Non-Af Amer) ml/min BUN/Creatinine Ratio (10-20) Glucose (70-99) mg/dl POC Glucose 101 H (70-99) mg/dl Calcium (8.5-10.1) mg/dl Magnesium (1.8-2.4) mg/dl Total Bilirubin (0.2-1) mg/dl AST (15-37) U/L ALT (12-78) U/L Alkaline Phosphatase (45-117) U/L Troponin I (0-0.045) ng/ml NT-Pro-B Natriuret Pep (0-1800) pg/ml Total Protein (6.4-8.2) gm/dl Albumin (3.4-5.0) gm/dl Globulin (2.5-4.0) gm/dl Albumin/Globulin Ratio (0.9-2) TSH (0.300-4.500) uIu/ml Free T4 (0.8-1.6) ng/dl SARS-CoV-2, RNA, NAAT NEGATIVE (NEGATIVE) Administered Medications Acetaminophen (Acetaminophen 325 Mg Tab) 650 mg PO Q4H PRN PRN Reason: Pain or Fever Stop: 04/04/21 19:58 Last Admin: 03/10/21 02:45 Dose: 650 mg Documented by: [id number] Admin: 03/09/21 16:13 Dose: 650 mg Documented by: [id number] Admin: 03/09/21 08:18 Dose: 650 mg Documented by: [id number] Admin: 03/08/21 22:04 Dose: 650 mg Documented by: [id number] Admin: 03/08/21 14:32 Dose: 650 mg Documented by: [id number] Admin: 03/08/21 05:31 Dose: 650 mg Documented by: [id number] Admin: 03/07/21 18:08 Dose: 650 mg Documented by: [id number] Admin: 03/07/21 09:48 Dose: 650 mg Documented by: [id number] Admin: 03/06/21 20:43 Dose: 650 mg Documented by: [id number] Admin: 03/06/21 16:02 Dose: 650 mg Documented by: [id number] Allopurinol (Allopurinol 300 Mg Tab) 300 mg PO HS [facility] Stop: 04/04/21 20:59 Last Admin: 03/09/21 20:41 Dose: 300 mg Documented by: [id number] Admin: 03/08/21 21:12 Dose: 300 mg Documented by: [id number] Admin: 03/07/21 20:07 Dose: 300 mg Documented by: [id number] Admin: 03/06/21 20:57 Dose: 300 mg Documented by: [id number] Admin: 03/05/21 21:39 Dose: 300 mg Documented by: [id number] Atorvastatin Calcium (Atorvastatin 40 Mg Tab) 40 mg PO [facility] Stop: 04/04/21 20:59 Last Admin: 03/09/21 20:41 Dose: 40 mg Documented by: [id number] Admin: 03/08/21 21:12 Dose: 40 mg Documented by: [id number] Admin: 03/07/21 20:08 Dose: 40 mg Documented by: [id number] Admin: 03/06/21 20:59 Dose: 40 mg Documented by: [id number] Admin: 03/05/21 21:39 Dose: 40 mg Documented by: [id number] Digoxin (Digoxin 0.125 Mg Tab) 0.125 mg PO DAILY@1999 [facility] Stop: 04/04/21 19:59 Last Admin: 03/09/21 20:41 Dose: 0.125 mg Documented by: [id number] Admin: 03/08/21 21:12 Dose: 0.125 mg Documented by: [id number] Admin: 03/07/21 20:07 Dose: 0.125 mg Documented by: [id number] Admin: 03/06/21 20:58 Dose: 0.125 mg Documented by: [id number] Admin: 03/05/21 21:39 Dose: 0.125 mg Documented by: [id number] Diltiazem HCl (Diltiazem Hcl 240 Mg Capcr) 240 mg PO [facility] Stop: 04/05/21 20:59 Last Admin: 03/09/21 20:42 Dose: 240 mg Documented by: [id number] Admin: 03/08/21 21:11 Dose: 240 mg Documented by: [id number] Admin: 03/07/21 20:07 Dose: 240 mg Documented by: [id number] Admin: 03/06/21 20:59 Dose: 240 mg Documented by: [id number] Doxycycline Hyclate (Doxycycline Hyclate 100 Mg Cap) 100 mg PO BID@1100,2100 [facility] Stop: 03/14/21 10:59 Last Admin: 03/09/21 20:41 Dose: 100 mg Documented by: [id number] Admin: 03/09/21 11:49 Dose: 100 mg Documented by: [id number] Admin: 03/08/21 21:12 Dose: 100 mg Documented by: [id number] Admin: 03/08/21 12:06 Dose: 100 mg Documented by: [id number] Admin: 03/07/21 20:06 Dose: 100 mg Documented by: [id number] Admin: 03/07/21 10:01 Dose: 100 mg Documented by: [id number] Furosemide (Furosemide 20 Mg Tab) 20 mg PO QAM [facility] Stop: 04/06/21 08:59 Last Admin: 03/10/21 08:38 Dose: 20 mg Documented by: [id number] Admin: 03/09/21 08:06 Dose: 20 mg Documented by: [id number] Admin: 03/08/21 08:34 Dose: 20 mg Documented by: [id number] Admin: 03/07/21 09:18 Dose: 20 mg Documented by: [id number] Gabapentin (Gabapentin 300 Mg Cap) 300 mg PO HS [facility] Stop: 04/04/21 20:59 Last Admin: 03/09/21 20:41 Dose: 300 mg Documented by: [id number] Admin: 03/08/21 21:12 Dose: 300 mg Documented by: [id number] Admin: 03/07/21 20:07 Dose: 300 mg Documented by: [id number] Admin: 03/06/21 21:00 Dose: 300 mg Documented by: [id number] Admin: 03/05/21 21:39 Dose: 300 mg Documented by: [id number] Insulin Aspart (Insulin Aspart 100 Units/Ml 3 Ml Pen) 0 units SC DAILY@30 [facility] Stop: 04/04/21 20:59 Last Admin: 03/10/21 08:41 Dose: 13 units Documented by: [id number] Cosigned by: [id number] Insulin Glargine (Insulin Glargine Solostar 100 Units/Ml 3 Ml Pen) [facility] Stop: 04/06/21 20:59 Last Admin: 03/10/21 08:40 Dose: 30 units Documented by: [id number] Cosigned by: [id number] Admin: 03/09/21 08:08 Dose: 30 units Documented by: [id number] Cosigned by: [id number] Insulin Glargine (Insulin Glargine Solostar 100 Units/Ml 3 Ml Pen) 0 units SC [facility]; Protocol Stop: 04/08/21 20:59 Last Admin: 03/09/21 20:43 Dose: 30 units Documented by: [id number] Cosigned by: [id number] Levothyroxine Sodium (Levothyroxine Sodium 75 Mcg Tablet) [facility] Stop: 04/05/21 06:29 Last Admin: 03/10/21 05:57 Dose: 75 mcg Documented by: [id number] Admin: 03/09/21 05:45 Dose: 75 mcg Documented by: [id number] Admin: 03/08/21 05:31 Dose: 75 mcg Documented by: [id number] Admin: 03/07/21 05:39 Dose: 75 mcg Documented by: [id number] Admin: 03/06/21 06:14 Dose: 75 mcg Documented by: [id number] Losartan Potassium (Losartan Potassium 50 Mg Tab) 50 mg PO [facility] Stop: 04/04/21 20:59 Last Admin: 03/09/21 20:42 Dose: 50 mg Documented by: [id number] Admin: 03/08/21 21:12 Dose: 50 mg Documented by: [id number] Admin: 03/07/21 20:06 Dose: 50 mg Documented by: [id number] Admin: 03/06/21 21:00 Dose: 50 mg Documented by: [id number] Admin: 03/05/21 21:39 Dose: 50 mg Documented by: [id number] Magnesium Oxide (Magnesium Oxide 400 Mg Tab) 400 mg PO DAILY [facility] Stop: 04/05/21 08:59 Last Admin: 03/10/21 08:37 Dose: 400 mg Documented by: [id number] Admin: 03/09/21 08:07 Dose: 400 mg Documented by: [id number] Admin: 03/08/21 08:35 Dose: 400 mg Documented by: [id number] Admin: 03/07/21 09:19 Dose: 400 mg Documented by: [id number] Admin: 03/06/21 08:56 Dose: 400 mg Documented by: [id number] Metoprolol Succinate (Metoprolol Succ 50mg Ext Rel Tab) 100 mg PO QPM [facility] Stop: 04/05/21 20:59 Last Admin: 03/09/21 20:42 Dose: 100 mg Documented by: [id number] Admin: 03/08/21 21:12 Dose: 100 mg Documented by: [id number] Admin: 03/07/21 20:07 Dose: 100 mg Documented by: [id number] Admin: 03/06/21 21:00 Dose: 100 mg Documented by: [id number] Metoprolol Succinate (Metoprolol Succ 50mg Ext Rel Tab) 200 mg PO QAM [facility] Stop: 04/05/21 08:59 Last Admin: 03/10/21 08:36 Dose: 200 mg Documented by: [id number] Admin: 03/09/21 08:06 Dose: 200 mg Documented by: [id number] Admin: 03/08/21 08:34 Dose: 200 mg Documented by: [id number] Admin: 03/07/21 09:17 Dose: 200 mg Documented by: [id number] Admin: 03/06/21 08:56 Dose: 200 mg Documented by: [id number] Spironolactone (Spironolactone 12.5 Mg Tab) 12.5 mg PO DAILY [facility] Stop: 04/05/21 08:59 Last Admin: 03/10/21 08:36 Dose: 12.5 mg Documented by: [id number] Admin: 03/09/21 08:06 Dose: 12.5 mg Documented by: [id number] Admin: 03/08/21 08:36 Dose: 12.5 mg Documented by: [id number] Admin: 03/07/21 09:18 Dose: 12.5 mg Documented by: [id number] Admin: 03/06/21 08:55 Dose: 12.5 mg Documented by: [id number] Vitamin D (Cholecalciferol 1,000 Units 25 Mcg Tab) 1,000 units PO DAILY [facility] Stop: 04/05/21 08:59 Last Admin: 03/10/21 08:38 Dose: 1,000 units Documented by: [id number] Admin: 03/09/21 08:06 Dose: 1,000 units Documented by: [id number] Admin: 03/08/21 08:39 Dose: 1,000 units Documented by: [id number] Admin: 03/07/21 09:18 Dose: 1,000 units Documented by: [id number] Admin: 03/06/21 08:55 Dose: 1,000 units Documented by: [id number] Discontinued Medications Dextrose (Dextrose 50% 50 Ml Syringe) 25 ml IV NOW ONE Stop: 03/05/21 14:32 Last Admin: 03/05/21 14:38 Dose: Not Given Documented by: [id number] Diltiazem HCl (Diltiazem Hcl 5 Mg/Ml 5 Ml Vial) 10 mg IV NOW STA Stop: 03/05/21 14:39 Last Admin: 03/05/21 14:55 Dose: 10 mg Documented by: [id number] Cosigned by: [id number] Doxycycline Hyclate (Doxycycline Hyclate 100 Mg Cap) 100 mg PO BID [facility] Stop: 03/14/21 09:29 Last Admin: 03/07/21 09:34 Dose: Not Given Documented by: [id number] Furosemide (Furosemide 40 Mg/4 Ml Vial) 40 mg IV ONE ONE Stop: 03/05/21 17:01 Last Admin: 03/05/21 19:00 Dose: 40 mg Documented by: [id number] Furosemide (Furosemide Inj 20 Mg/2 Ml Vial) 20 mg IV ONE ONE Stop: 03/06/21 17:10 Last Admin: 03/06/21 17:21 Dose: 20 mg Documented by: [id number] Furosemide (Furosemide 20 Mg Tab) 20 mg PO NOW ONE Stop: 03/08/21 17:31 Last Admin: 03/08/21 17:34 Dose: 20 mg Documented by: [id number] Furosemide (Furosemide 20 Mg Tab) 20 mg PO ONE ONE Stop: 03/09/21 18:57 Last Admin: 03/09/21 20:42 Dose: 20 mg Documented by: [id number] Sodium Chloride (Nss 1000ml) 1,000 mls @ 125 mls/hr IV .Q8H [facility] Stop: 03/05/21 21:29 Last Infusion: 03/05/21 21:50 Dose: 0 mls/hr Documented by: [id number] Admin: 03/05/21 13:29 Dose: 125 mls/hr Documented by: [id number] Ceftriaxone Sodium 1,000 mg/ (Dextrose) 60 mls @ 100 mls/hr IV DAILY [facility]; Protocol Stop: 03/12/21 16:14 Last Infusion: 03/09/21 09:06 Dose: 0 mls/hr Documented by: [id number] Admin: 03/09/21 08:18 Dose: 100 mls/hr Documented by: [id number] Infusion: 03/08/21 09:30 Dose: 0 mls/hr Documented by: [id number] Admin: 03/08/21 08:52 Dose: 100 mls/hr Documented by: [id number] Infusion: 03/07/21 18:10 Dose: 0 mls/hr Documented by: [id number] Admin: 03/07/21 17:34 Dose: 100 mls/hr Documented by: [id number] Insulin Aspart (Insulin Aspart 100 Units/Ml 3 Ml Pen) 0 units SC ACHS [facility] Stop: 04/04/21 20:59 Last Admin: 03/09/21 20:43 Dose: Not Given Documented by: [id number] Cosigned by: [id number] Admin: 03/09/21 17:00 Dose: 7 units Documented by: [id number] Cosigned by: [id number] Admin: 03/09/21 11:49 Dose: 19 units Documented by: [id number] Cosigned by: [id number] Admin: 03/09/21 08:07 Dose: 13 units Documented by: [id number] Cosigned by: [id number] Admin: 03/08/21 21:18 Dose: 11 units Documented by: [id number] Cosigned by: [id number] Admin: 03/08/21 16:54 Dose: 14 units Documented by: [id number] Cosigned by: [id number] Admin: 03/08/21 12:07 Dose: 11 units Documented by: [id number] Cosigned by: [id number] Admin: 03/08/21 08:37 Dose: 8 units Documented by: [id number] Cosigned by: [id number] Admin: 03/07/21 20:22 Dose: 3 units Documented by: [id number] Cosigned by: [id number] Admin: 03/07/21 17:53 Dose: 6 units Documented by: [id number] Cosigned by: [id number] Admin: 03/07/21 12:20 Dose: 7 units Documented by: [id number] Cosigned by: [id number] Admin: 03/07/21 09:12 Dose: 7 units Documented by: [id number] Cosigned by: [id number] Admin: 03/06/21 20:47 Dose: 1 units Documented by: [id number] Cosigned by: [id number] Admin: 03/06/21 17:16 Dose: 5 units Documented by: [id number] Cosigned by: [id number] Admin: 03/06/21 12:02 Dose: 4 units Documented by: [id number] Cosigned by: [id number] Admin: 03/06/21 08:43 Dose: 3 units Documented by: [id number] Cosigned by: [id number] Admin: 03/05/21 21:47 Dose: Not Given Documented by: [id number] Cosigned by: [id number] Insulin Aspart (Insulin Aspart 100 Units/Ml 3 Ml Pen) 0 units SC 0000,0400 [facility] Stop: 03/06/21 04:01 Last Admin: 03/06/21 04:47 Dose: Not Given Documented by: [id number] Cosigned by: [id number] Admin: 03/05/21 23:43 Dose: Not Given Documented by: [id number] Cosigned by: [id number] Insulin Aspart (Insulin Aspart 100 Units/Ml 3 Ml Pen) 0 units SC T FERNANDO@0000,0400 [facility] Stop: 03/07/21 04:01 Last Admin: 03/07/21 04:45 Dose: Not Given Documented by: [id number] Cosigned by: [id number] Admin: 03/07/21 00:07 Dose: Not Given Documented by: [id number] Cosigned by: [id number] Insulin Aspart (Insulin Aspart 100 Units/Ml 3 Ml Pen) 0 units SC 0000,0400 [facility] Stop: 03/09/21 04:01 Last Admin: 03/09/21 03:40 Dose: 3 units Documented by: [id number] Cosigned by: [id number] Admin: 03/09/21 00:01 Dose: 10 units Documented by: [id number] Cosigned by: [id number] Insulin Glargine (Insulin Glargine Solostar 100 Units/Ml 3 Ml Pen) 0 units SC [facility]; Protocol Stop: 04/05/21 08:59 Last Admin: 03/06/21 08:58 Dose: 15 units Documented by: [id number] Cosigned by: [id number] Insulin Glargine (Insulin Glargine Solostar 100 Units/Ml 3 Ml Pen) 0 units SC [facility]; Protocol Stop: 04/05/21 20:59 Last Admin: 03/06/21 20:45 Dose: 25 units Documented by: [id number] Cosigned by: [id number] Insulin Glargine (Insulin Glargine Solostar 100 Units/Ml 3 Ml Pen) 20 units SC BID [facility] Stop: 04/06/21 08:59 Last Admin: 03/07/21 09:15 Dose: 20 units Documented by: [id number] Cosigned by: [id number] Insulin Glargine (Insulin Glargine Solostar 100 Units/Ml 3 Ml Pen) 0 units SC BID [facility]; Protocol Stop: 04/06/21 20:59 Last Admin: 03/08/21 21:19 Dose: 30 units Documented by: [id number] Cosigned by: [id number] Admin: 03/08/21 08:40 Dose: 25 units Documented by: [id number] Cosigned by: [id number] Admin: 03/07/21 20:23 Dose: 25 units Documented by: [id number] Cosigned by: [id number] Ioversol (Optiray 320 125ml) 120 ml IV ONCE ONE Stop: 03/08/21 14:03 Last Admin: 03/08/21 14:03 Dose: 120 ml Documented by: [id number] Ketorolac Tromethamine (Ketorolac Tromethamine 15 Mg/Ml Vial) 15 mg IV NOW ONE Stop: 03/08/21 06:39 Last Admin: 03/08/21 12:03 Dose: Not Given Documented by: [id number] Metoprolol Succinate (Metoprolol Succ 50mg Ext Rel Tab) 50 mg PO NOW STA Stop: 03/05/21 14:59 Last Admin: 03/05/21 15:13 Dose: 50 mg Documented by: [id number] Metoprolol Succinate (Metoprolol Succ 50mg Ext Rel Tab) 100 mg PO ONE ONE Stop: 03/05/21 21:01 Last Admin: 03/05/21 21:38 Dose: 100 mg Documented by: [id number] Potassium Chloride (Potassium Chloride Crtab 20 Meq Tabcr) 40 meq PO NOW STA Stop: 03/05/21 14:34 Last Admin: 03/05/21 14:56 Dose: 40 meq Documented by: [id number] Potassium Chloride (Potassium Chloride Crtab 20 Meq Tabcr) 20 meq PO ONE ONE Stop: 03/05/21 21:01 Last Admin: 03/05/21 21:38 Dose: 20 meq Documented by: [id number] Imaging Data Radiologist's Impression: Chest X-Ray 03/05/21 13:23 XR chest 1V portable HISTORY: 81 years-old Female weakness acute weakness COMPARISON: Chest radiograph 07/16/2016 TECHNIQUE: Portable AP view of the chest FINDINGS: Marked enlargement of the cardiac silhouette has progressively increased in size from comparison. Left subclavian pacer. Calcified plaque of the thoracic aorta. Pulmonary vascular congestion with mild interstitial coarsening. No pneumothorax or large pleural effusion. No lobar airspace consolidation. Hiatal hernia. Degenerative changes of the shoulders and spine. IMPRESSION: 1. Cardiomegaly and pulmonary vascular congestion with questioned pulmonary edema. 2. Hiatal hernia. ACT 112: Negative or not required by law. The above report was generated using voice recognition software. It may contain grammatical, syntax or spelling errors. Electronically signed by: Srathak Quigley M.D. 03/05/2021 2:[address] 03/05/21 13:35 CT head/brain wo con CLINICAL HISTORY: 81 years-old Female with AMS, H/o ICH, 6 WK AGO [facility]. Acutely altered mental status TECHNIQUE: Multiple axial CT images of the head were obtained without contrast. A dose lowering technique was utilized adhering to the principles of ALARA. CT DOSE: 537.48 mGy.cm COMPARISON: Head CT 04/17/2014. FINDINGS: There is no midline shift, intracranial mass, hydrocephalus, territorial ischemia or abnormal extra-axial collection. There is progressive encephalomalacia with moderate loss of the left cerebellar hemisphere suggestive of chronic infarct. Age-related involutional changes with ex vacuo ventriculomegaly. White matter hypodensities suggest chronic microvascular ischemic disease. Senescent calcifications of the lentiform nuclei. Cerebral vascular calcifications. Left parietal scalp hematoma measures 4.2 x 0.8 cm. Minimal subcentimeter focus of adjacent cortically based increased attenuation of the left parietal lobe on image 19 series 2. There is a suggested small associated scalp laceration. The calvarium is intact. Prior bilateral lens repair. The paranasal sinuses, mastoid air cells, and middle ear cavities are clear. IMPRESSION: 1. Suspected tiny acute versus subacute left parietal lobe subarachnoid hemorrhage adjacent to the left parietal scalp hematoma. A 12 to 24 hour follow- up head CT is recommended. 2. Chronic left cerebellar infarct. ACT 112: Negative or not required by law. The above report was generated using voice recognition software. It may contain grammatical, syntax or spelling errors. Electronically signed by: Sarthak Quigley M.D. 03/05/2021 2:22 PM Blood Pressure Blood Pressure Findings: Normal blood pressure Blood Pressure Disposition: did not require urgent referral Discharge Plan Visit Data Chief Complaint: Hypoglycemia Stated Complaint: hypoglycemia ED Provider: Urvashi Mosley Discharge Problem: Hypoglycemia, Elevated troponin, Subarachnoid hemorrhage following injury, Atrial fibrillation with rapid ventricular response Patient Disposition: Admitted As Inpatient Discharge Instructions Interventions: ED Discharge Assessment Last Done: 03/05/21 19:57 Discharge Problem: Subarachnoid hemorrhage following injury Qualifiers: Encounter type: initial encounter Loss of consciousness presence/duration: without LOC Qualified Code(s): S06.6X0A - Traumatic subarachnoid hemorrhage without loss of consciousness, initial encounter
[2021-03-05 22:34] LABS: Appearance Urine Clear (Clear); Bacteria Urine Automated Negative (Negative); Bilirubin Urine Negative (Negative); Blood Urine Trace (Negative); Cast Urine Automated 0 /lpf (0-5); Color Urine Yellow; Glucose Urine UA Negative (Negative); Ketones Urine Negative (Negative); Leukocyte Esterase Urine Negative (Negative); Nitrite Urine Positive (Negative); Protein Urine 1+ (Negative); RBC Urine Automated 0-4 /hpf (0-4); Specific Gravity Urine 1.011 (1.000-1.030); Urobilinogen Urine Negative (Negative)
[2021-03-06 01:40] LABS: Hematocrit (blood only) 32.2 % (37-47); Hemoglobin 10.3 g/dL (12.0-16.0); Mean Corpuscular Hemoglobin 32.7 pg (25-34); Mean Corpuscular Volume 102.2 fL (80-100); Mean Platelet Volume 10.2 fL (7.4-10.4); Platelet Count 119 K/uL (130-400); RDW Standard Deviation 52.9 fL (36.4-46.3); Red Blood Count 3.15 M/uL (4.2-5.4); White Blood Count 6.29 K/uL (4.8-10.8)
[2021-03-06 01:58] LABS: Albumin Level 3.3 gm/dl (3.4-5.0); BUN Creatinine Ratio 37.3 (10-20); Calcium 9.4 mg/dl (8.5-10.1); Creatinine Clr Calc Pharmacy 53.8 ml/min; Est GFR (African American) 96.9 ml/min; Est GFR (Non-African American) 83.6 ml/min; Magnesium 1.9 mg/dl (1.8-2.4); Potassium 4.7 mmol/L (3.5-5.1)
[2021-03-06 02:16] LABS: Albumin Globulin Ratio 0.7 (0.9-2); Bilirubin,Total 0.6 mg/dl (0.2-1); Globulin 4.4 gm/dl (2.5-4.0); Total Protein 7.7 gm/dl (6.4-8.2); Troponin I 0.123 ng/ml (0-0.045)
[2021-03-06] MEDS: INSULIN ASPART 100 UNITS/ML 3 ML PEN SC SCH ×5 (04:47→20:47)
[2021-03-06] MEDS: LEVOTHYROXINE SODIUM 75 MCG TABLET PO SCH (06:14)
[2021-03-06 08:03] LABS: Estimated Average Glucose 249 mg/dl; Hemoglobin A1C 10.3 % (4.5-5.6)
[2021-03-06] MEDS: SPIRONOLACTONE 12.5 MG TAB PO SCH (08:55)
[2021-03-06] MEDS: CHOLECALCIFEROL 1,000 UNITS 25 MCG TAB PO SCH (08:55)
[2021-03-06] MEDS: METOPROLOL SUCC 50MG EXT REL TAB PO SCH ×2 (08:56→21:00)
[2021-03-06] MEDS: MAGNESIUM OXIDE 400 MG TAB PO SCH (08:56)
[2021-03-06] MEDS: INSULIN GLARGINE SOLOSTAR 100 UNITS/ML 3 ML PEN SC SCH ×2 (08:58→20:45)
--- NOTE | 2021-03-06 09:12 | Ultrasound Report ---
US arterial duplex LE RT CLINICAL HISTORY: R/O occlusion. Right leg pain. COMPARISON STUDY: None. FINDINGS: Normal triphasic to biphasic waveforms and velocities seen throughout the right lower extre mity arterial system. Moderate calcified plaque seen throughout the arterial system. No significant s tenosis or occlusion. IMPRESSION: No significant stenosis or occlusion within the right lower extremity arterial system. ACT 112: Negative or not required by law. Electronically signed by: Godwin Ansari M.D. 03/06/2021 9:10 AM
--- NOTE | 2021-03-06 11:57 | Neurology Consultation ---
Date of Consultation March 06, 2021 Assessment & Plan (1) Subarachnoid hemorrhage following injury: 1. CT head- in 24-48 hours after previous image- MRI would be optimial for evaluation but pacemaker does not allow for this 2. orthostatic BP evaluation 3. afib but no anticoag due to fall risk 4. PT OT for discharge needs may need out patient therapy due to falls 5. would not use triptans for headache in this age group and vascular risk factors. 6. HgbA1c is elevated and blood sugars are not well controlled 7. troponin and BNP were elevated on admission and will need monitored 8. PT/OT for discharge needs will follow with imaging once completed in 24-48 hours (2) Atrial fibrillation with rapid ventricular response: (3) Syncope: Supervising Physician Co-Signing Physician Notes I have seen and discussed above patient with Dr Terrance Gonzales, neurology I have interviewed and examined this patient with Kaci Valles PA-C reviewed her history and the imaging studies which show my opinion marginal mercedes dence for a left subarachnoid hemorrhage that is unlikely to have been due to the remote trauma [address] hopefully will be helpful in delineating this area of minor abnormality. Unfortunately we really cannot do an MRI. She does have some old left hemiparesis from prior CVA is compensating for this very well We will look over her chart tomorrow review the CT scan and decide then whether or not he needs CT angiography or other studies Patient denies having a new head injury during the hypoglycemic episode in [employer]. In this setting then we are left with an area of presumptive hemorrhage versus calcification in the left hemisphere whose cause remains unclear Terrance Gonzales MD History of Present Illness Reason for Consultation: tiny SAH Requesting Physician: Ricco Sebastian MD Attending Physician: Ricco Sebastian MD History of Present Illness Roxana is a 81 year old female with PMH- tachybrady syndrome, sinus node dysfunction s/p dual-chamber pacemaker, s/p generator change on 12/13/2020, h/o permanent atrial fibrillation s/p multiple cardioversions and ablation not on anticoagulation secondary to fall history and history of ICH in 2009 with supratherapeutic INR, residual left-sided weakness, ambulates with walker, insulin-dependent DM II, HTN, HLD, chronic combined CHF, pulmonary hypertension, H/O IVC filter, chronic iron deficiency, gout, hypothyroidism presented to [facility] ER 03/05/2021 with complaint of syncope.She woke up in am was feeling fine checked her blood sugar and it was 173 and then she took 50 units of Lantus and 10 units of Humalog. She reports eating a bowl of oatmeal, half a banana and cup of milk. 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 She did not have morning metoprolol, Lasix or spironolactone that day. She has chronic bilateral lower extremity edema however the past month feels like right lower leg is larger than left and has associated discomfort to entire right lower leg. She did have an episode about 6 weeks ago had what may have been a syncopal episode when she was in her kitchen standing and then she woke up to being on floor with blood coming from her scalp. Did not take blood sugar at that time and unclear if she had skipped meals. She did follow-up with PCP on 01/18/2021 and was noted to have left scalp hematoma and laceration and she was complaining of headache at that time. Had follow-up with PCP on 01/31/2021 and had reported improvement of headaches however had reported had episode of vision loss for 2 days. both times she refused CT head and trip to ED. She does not think she hit her head with the syncope at [employer]. denies CP, SOB, abdominal pain, +left sided weakness-chronic Allergies Allergy/AdvReac Type Severity Reaction Status Date / Time citalopram Allergy Unknown Verified 10/29/15 10:41 paroxetine Allergy Unknown Verified 10/29/15 10:41 Sulfa (Sulfonamide Allergy Unknown TOLERATES Verified 10/29/15 10:41 Antibiotics) LASIX venom-wasp protein Allergy Unknown HIVES Verified 10/29/15 10:41 celecoxib AdvReac Mild N/V Verified 03/03/12 19:22 Home Medications Medication Instructions Recorded Confirmed Type amoxicillin 500 mg capsule 500 mg PO UNKNOWN 12/13/20 03/05/21 History atorvastatin 40 mg tablet 40 mg PO HS 12/13/20 03/05/21 History insulin glargine 100 unit/mL (3 50 unit SUBCUT QAM 12/13/20 03/05/21 History mL) subcutaneous pen (Lantus Solostar U-100 Insulin) insulin lispro 100 unit/mL See Rx Instructions .ROUTE .COMPLEX 12/13/20 03/05/21 History subcutaneous pen (Humalog KwikPen (U-100) Insulin) levothyroxine 75 mcg tablet 75 mcg PO HS 12/13/20 03/05/21 History losartan 50 mg tablet 50 mg PO HS 12/13/20 03/05/21 History magnesium oxide 400 mg PO DAILY 12/13/20 03/05/21 History metoprolol succinate 50 mg 50 mg PO UD 12/13/20 03/05/21 History tablet,extended release 24 hr rizatriptan 5 mg tablet See Rx Instructions .ROUTE 12/13/20 03/06/21 History .COMPLEX PRN spironolactone 25 mg tablet 12.5 mg PO DAILY 12/13/20 03/05/21 History acetaminophen 500 mg tablet 500 mg PO Q6H PRN 03/05/21 03/05/21 History (Acetaminophen Extra Strength) allopurinol 300 mg tablet 300 mg PO HS 03/05/21 03/05/21 History cholecalciferol (vitamin D3) 25 25 mcg PO DAILY 03/05/21 03/05/21 History mcg (1,000 unit) tablet digoxin 125 mcg (0.125 mg) tablet 125 mcg PO DAILY@199903/05/21 03/05/21 History diltiazem HCl 240 mg 240 mg PO HS 03/05/21 03/05/21 History capsule,extended release 24 hr epinephrine 0.3 mg/0.3 mL 0.3 mg IM Q4H PRN 03/05/21 03/05/21 History injection, auto-injector furosemide 40 mg tablet 20 mg PO QAM 03/05/21 03/05/21 History gabapentin 300 mg capsule 300 mg PO HS 03/05/21 03/05/21 History hydrocodone 5 mg-acetaminophen 325 1 tab PO Q6 PRN 03/05/21 03/05/21 History mg tablet Patient History Medical History (Updated 03/05/21 @ 22:08 by Urvashi Mosley MD) Afib Cerebral hemorrhage "2010 left hemiparesis" Chronic anemia Chronic combined systolic and diastolic CHF (congestive heart failure) Diabetes mellitus, type II Gout Hematoma of rectus sheath Hemiplegia History of - cerebrovascular accident HLD (hyperlipidemia) HTN (hypertension) Hypothyroidism Pacemaker Presence of IVC filter Tachy-jodi syndrome Surgical History (Updated 03/05/21 @ 17:38 by Polly Marinelli PA-C) Status post appendectomy Status post cardiac pacemaker procedure Status post cataract extraction Status post cholecystectomy Status post hysterectomy Status post insertion of inferior vena caval filter Family History (Updated 03/05/21 @ 17:39 by Polly Marinelli PA-C) Daughter Breast cancer Mother Cancer pancreatic Father Heart disease Social History Smoking Status: Never smoker Second Hand Exposure: No; Do You Dip or Chew Tobacco: No; Hx Alcohol Use: No Hx Substance Use: No Preferred Language: Tajik Communication Ability: Effective 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: No Beliefs That Will Affect Care: None Current Living Situation: Spouse Other Information That Helps Us Care for You: No Feels Safe at Home: Yes Safety Concerns: Feels Safe At This Time Assistive Devices: Glasses Review of Systems Review of Systems: All systems reviewed & are unremarkable except as noted in HPI & below Physical Exam Physical Exam: Physical Exam: Constitutional: appearance nourished, healthy and normal Ears, Nose, Mouth and Throat: mucous membranes moist, no injection and skin normal, eyes normal Cardiovascular: irregular Respiratory: clear to auscultation (CTA) and no rales, ronchi or wheeze Musculoskeletal: no peripheral edema and good distal pulses, thenar atrophy bilaterally Skin: no stigmata of neurocutaneous disease noted and normal and intact Eyes: extraocular muscles intact (EOMI) NEUROLOGIC EXAMINATION: Mental status: Alert and interactive Oriented to full date and location Oriented to person Speech fluent with no evidence of aphasia Cranial Nerves smile eye brow raise symmetric Reflexes: Deep tendon reflexes were symmetrical decreased in LE Sensory: vibration and light touch intact Coordination: finger to nose Gait/Stance: Posture lying in bed Motor: Negative for pronator drift of out stretched arms with eyes closed. 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/5, left 4+/5, hip flex right 5/5, left 4+/5 plantar flex ext 5/5 bilaterally Results & Data ([facility]) Vital Signs (Past 12 Hours) Vital Signs Temp Pulse Pulse Resp BP BP Pulse Ox 03/06/21 11:00 37.1 C 82 15 126/79 95 03/06/21 07:36 37.1 C 90 18 123/86 95 03/06/21 02:35 80 18 128/80 97 03/06/21 01:42 77 18 135/85 97 Laboratory Results Abnormal lab results 03/05/21 03/05/21 03/05/21 Range/Units 13:46 13:46 14:31 RBC 3.46 L (4.2-5.4) M/uL Hgb 11.3 L (12.0-16.0) g/dL Hct 35.8 L (37-47) % MCV 103.5 H (80-100) fL MCHC 31.6 L (32-36) g/dL RDW Std Deviation 52.4 H (36.4-46.3) fL Plt Count 129 L (130-400) K/uL Lymph # (Auto) 0.90 L (1.2-3.4) K/uL Mcdonald # (Auto) 0.78 H (0.11-0.59) K/uL Immature Gran # (Auto) 0.03 H (0.00-0.02) K/uL INR (0.9-1.1) Potassium 3.3 L (3.5-5.1) mmol/L Chloride (98-107) mmol/L BUN 23 H (7-18) mg/dl BUN/Creatinine Ratio 31.6 H (10-20) Glucose 63 L (70-99) mg/dl POC Glucose 101 H (70-99) mg/dl Hemoglobin A1c (4.5-5.6) % AST (15-37) U/L Alkaline Phosphatase 121 H (45-117) U/L Troponin I 0.079 H* (0-0.045) ng/ml NT-Pro-B Natriuret Pep 8819 H (0-1800) pg/ml Total Protein 8.6 H (6.4-8.2) gm/dl Albumin (3.4-5.0) gm/dl Globulin 4.9 H (2.5-4.0) gm/dl Albumin/Globulin Ratio 0.8 L (0.9-2) TSH 6.090 H (0.300-4.500) uIu/ml Urine Protein (Negative) Urine Blood (Negative) Urine Nitrite (Negative) U Epithel Cells (Auto) (0-5) /lpf Urine Yeast (None Prsent) 03/05/21 03/05/21 03/05/21 Range/Units 19:17 19:21 21:08 RBC (4.2-5.4) M/uL Hgb (12.0-16.0) g/dL Hct (37-47) % MCV (80-100) fL MCHC (32-36) g/dL RDW Std Deviation (36.4-46.3) fL Plt Count (130-400) K/uL Lymph # (Auto) (1.2-3.4) K/uL Mcdonald # (Auto) (0.11-0.59) K/uL Immature Gran # (Auto) (0.00-0.02) K/uL INR 1.2 H (0.9-1.1) Potassium (3.5-5.1) mmol/L Chloride (98-107) mmol/L BUN (7-18) mg/dl BUN/Creatinine Ratio (10-20) Glucose (70-99) mg/dl POC Glucose 172 H (70-99) mg/dl Hemoglobin A1c (4.5-5.6) % AST (15-37) U/L Alkaline Phosphatase (45-117) U/L Troponin I 0.126 H* (0-0.045) ng/ml NT-Pro-B Natriuret Pep (0-1800) pg/ml Total Protein (6.4-8.2) gm/dl Albumin (3.4-5.0) gm/dl Globulin (2.5-4.0) gm/dl Albumin/Globulin Ratio (0.9-2) TSH (0.300-4.500) uIu/ml Urine Protein (Negative) Urine Blood (Negative) Urine Nitrite (Negative) U Epithel Cells (Auto) (0-5) /lpf Urine Yeast (None Prsent) 03/05/21 03/05/21 03/05/21 Range/Units 21:42 21:59 23:39 RBC (4.2-5.4) M/uL Hgb (12.0-16.0) g/dL Hct (37-47) % MCV (80-100) fL MCHC (32-36) g/dL RDW Std Deviation (36.4-46.3) fL Plt Count (130-400) K/uL Lymph # (Auto) (1.2-3.4) K/uL Mcdonald # (Auto) (0.11-0.59) K/uL Immature Gran # (Auto) (0.00-0.02) K/uL INR (0.9-1.1) Potassium (3.5-5.1) mmol/L Chloride (98-107) mmol/L BUN (7-18) mg/dl BUN/Creatinine Ratio (10-20) Glucose (70-99) mg/dl POC Glucose 140 H 128 H (70-99) mg/dl Hemoglobin A1c (4.5-5.6) % AST (15-37) U/L Alkaline Phosphatase (45-117) U/L Troponin I (0-0.045) ng/ml NT-Pro-B Natriuret Pep (0-1800) pg/ml Total Protein (6.4-8.2) gm/dl Albumin (3.4-5.0) gm/dl Globulin (2.5-4.0) gm/dl Albumin/Globulin Ratio (0.9-2) TSH (0.300-4.500) uIu/ml Urine Protein 1+ H (Negative) Urine Blood Trace H (Negative) Urine Nitrite Positive A (Negative) U Epithel Cells (Auto) 5-10 H (0-5) /lpf Urine Yeast Present A (None Prsent) 03/06/21 03/06/21 03/06/21 Range/Units 01:28 01:28 01:28 RBC 3.15 L (4.2-5.4) M/uL Hgb 10.3 L (12.0-16.0) g/dL Hct 32.2 L (37-47) % MCV 102.2 H (80-100) fL MCHC (32-36) g/dL RDW Std Deviation 52.9 H (36.4-46.3) fL Plt Count 119 L (130-400) K/uL Lymph # (Auto) (1.2-3.4) K/uL Mcdonald # (Auto) (0.11-0.59) K/uL Immature Gran # (Auto) (0.00-0.02) K/uL INR (0.9-1.1) Potassium (3.5-5.1) mmol/L Chloride 109 H (98-107) mmol/L BUN 25 H (7-18) mg/dl BUN/Creatinine Ratio 37.3 H (10-20) Glucose 133 H (70-99) mg/dl POC Glucose (70-99) mg/dl Hemoglobin A1c 10.3 H (4.5-5.6) % AST 43 H (15-37) U/L Alkaline Phosphatase (45-117) U/L Troponin I 0.123 H* (0-0.045) ng/ml NT-Pro-B Natriuret Pep (0-1800) pg/ml Total Protein (6.4-8.2) gm/dl Albumin 3.3 L (3.4-5.0) gm/dl Globulin 4.4 H (2.5-4.0) gm/dl Albumin/Globulin Ratio 0.7 L (0.9-2) TSH (0.300-4.500) uIu/ml Urine Protein (Negative) Urine Blood (Negative) Urine Nitrite (Negative) U Epithel Cells (Auto) (0-5) /lpf Urine Yeast (None Prsent) 03/06/21 03/06/21 03/06/21 Range/Units 03:42 07:41 11:13 RBC (4.2-5.4) M/uL Hgb (12.0-16.0) g/dL Hct (37-47) % MCV (80-100) fL MCHC (32-36) g/dL RDW Std Deviation (36.4-46.3) fL Plt Count (130-400) K/uL Lymph # (Auto) (1.2-3.4) K/uL Mcdonald # (Auto) (0.11-0.59) K/uL Immature Gran # (Auto) (0.00-0.02) K/uL INR (0.9-1.1) Potassium (3.5-5.1) mmol/L Chloride (98-107) mmol/L BUN (7-18) mg/dl BUN/Creatinine Ratio (10-20) Glucose (70-99) mg/dl POC Glucose 121 H 115 H 159 H (70-99) mg/dl Hemoglobin A1c (4.5-5.6) % AST (15-37) U/L Alkaline Phosphatase (45-117) U/L Troponin I (0-0.045) ng/ml NT-Pro-B Natriuret Pep (0-1800) pg/ml Total Protein (6.4-8.2) gm/dl Albumin (3.4-5.0) gm/dl Globulin (2.5-4.0) gm/dl Albumin/Globulin Ratio (0.9-2) TSH (0.300-4.500) uIu/ml Urine Protein (Negative) Urine Blood (Negative) Urine Nitrite (Negative) U Epithel Cells (Auto) (0-5) /lpf Urine Yeast (None Prsent) Diagnostic Findings CXR-. Cardiomegaly and pulmonary vascular congestion with questioned pulmonary edema. . Hiatal hernia. CT head-Suspected tiny acute versus subacute left parietal lobe subarachnoid hemorrhage adjacent to the left parietal scalp hematoma. A 12 to 24 hour follow- up head CT is recommended. Chronic left cerebellar infarct. LE venous doppler-o sonographic evidence of deep venous thrombosis. LE y artery-No significant stenosis or occlusion within the right lower extremity arterial system. (1) Subarachnoid hemorrhage following injury Encounter type: initial encounter Loss of consciousness presence/duration: without LOC Qualified Code(s): S06.6X0A - Traumatic subarachnoid hemorrhage without loss of consciousness, initial encounter
--- NOTE | 2021-03-06 14:27 | CT Scan Report ---
HEAD CT NONCONTRAST CT DOSE: 690.05 mGycm HISTORY: Follow-up Subarachnoid hemorrhage TECHNIQUE: Multiaxial CT images of the head were performed without the use of intravenous contrast. A utomated exposure control was utilized for this study. A dose lowering technique was utilized adheri ng to the principles of ALARA. Comparison: Head CT 03/05/2021. Findings: Opacified left sphenoid sinus, unchanged. The mastoid air cells are clear. Left parietal sc alp swelling/injury again noted. This has slightly improved. The calvarium and skull base are intact. There is no mass, midline shift, acute infarct. White matter hypodensity is nonspecific but suggesti ve of microvascular ischemic change. The ventricles and sulci demonstrate mild age-related involution al changes. There is a punctate hyperdense focus within the periphery the left parietal lobe best see n on image 20. This remains unchanged. This is at the level of the scalp injury. This could represent a punctate subarachnoid hemorrhage/contusion or calcification. Continued [address] follow-up r ecommended to ensure stability. There is also a punctate focus of increased density within the right side of the cortes on image 8. This could be artifactual. Attention at follow-up is recommended to excl ude the less likely possibility punctate focus of hemorrhage. Old small infarct within the left cereb ellar hemisphere, unchanged. Impression: 1. No significant change in the punctate hyperdense focus within the periphery of the left parietal l obe at the level the scalp injury. This could represent punctate subarachnoid hemorrhage/contusion or calcification. Continued [address] follow-up recommended to ensure stability. 2. There is also a new punctate focus of increased density within the right side of the cortes which co uld be artifactual. Attention at follow-up is also recommended to exclude the less likely possibility of a punctate focus of hemorrhage. 3. These findings were called/faxed to the referring physician following dictation. ACT 112: Negative or not required by law. Electronically signed by: Godwin Ansari M.D. 03/06/2021 2:26 PM
--- NOTE | 2021-03-06 14:54 | Pharmacy Report ---
Pharmacy Glycemic Short Note 2 - Date of Service March 06, 2021 - Glycemic Short BSG Results (Last 24 hours): 03/05/21 03/05/21 03/05/21 19:21 21:42 23:39 Glucose POC Glucose 172 H 140 H 128 H 03/06/21 03/06/21 03/06/21 01:28 03:42 07:41 Glucose 133 H POC Glucose 121 H 115 H 03/06/21 11:13 Glucose POC Glucose 159 H OUTPATIENT ANTIDIABETIC REGIMEN: * Lantus 50 units QAM * Novolog 01/17/18 + correction * A1c 10.3% ASSESSMENT: * Patient with subarachnoid hemorrhage, hypoglycemic on admission * Lantus dose reduced to 15 units this morning, will set sliding scale for PM up to weight based stress of 3 (~40% reduction from home dose) * Lunch BSG 159 mg/dL will continue current novolog parameters PLAN FOR INPATIENT GLYCEMIC CONTROL: * Hold outpatient oral diabetes medications * Basal insulin * Lantus 15 units this AM, 015 units HS * Bolus insulin * NovoLog per scale ACHS or Q6hrs while NPO * Goal Range: Low 110 mg/dL - High 140 mg/dL * Correction Factor: 35 mg/dL/unit * Nutritional / Prandial insulin per carb ratio of 1 unit per 11 grams CHO consumed
[2021-03-06] MEDS: ACETAMINOPHEN 325 MG TAB PO PRN ×2 (16:02→20:43)
[2021-03-06] MEDS ORDERED: FUROSEMIDE INJ 20 MG/2 ML VIAL IV ONE (17:09)
--- NOTE | 2021-03-06 19:23 | Hospitalist Progress Note ---
Date of Service March 06, 2021 Assessment & Plan (1) Syncope: (2) Hypoglycemia: Plan: Insulin-dependent DM II Patient is 81-year-old female with PMH tachybrady syndrome, sinus node dysfunction s/p dual-chamber pacemaker, s/p generator change on 12/13/2020, h/o permanent atrial fibrillation s/p multiple cardioversions and ablation not on anticoagulation secondary to fall history and history of intracranial hemorrhage in 2009 with supratherapeutic INR, residual left-sided weakness, ambulates with walker, insulin-dependent DM II, HTN, HLD, chronic combined CHF, pulmonary hypertension, H/O IVC filter, chronic iron deficiency, gout, hypothyroidism presented to ER with complaint of syncope today and was found to have BSG of 38 and was given 250 mL D10 with repeat BSG of 178. Patient had 50 units Lantus and 10 units Humalog this morning and did eat breakfast. Missed dinner last night. Patient takes 50 units Lantus in the morning. She has Humalog to use 10 units with breakfast, 5 units with lunch and 18 units with dinner plus has correction sliding scale however patient only uses 10 units Humalog at breakfast does not take further throughout the day. Syncope Likely due to hypoglycemia DD: Recent brain bleed, R/O arrhythmia, Orthostatic Hypotension monitor for arrhythmias Pacemaker interrogation A1c: 13 and 11/16/2020 Hold home insulin, NovoLog correction insulin for now Monitor BSG's, and adjust insulin as needed Glycemic pharmacy consult Echo orthostatics Fall precautions PT OT HbA1C: 10.3 today Monitor for hypoglycemia (3) Subarachnoid hemorrhage: Plan: H/O syncopal episode and fall 6 weeks ago. Reported was standing in kitchen and next thing she knew she woke up lying on floor with blood coming from her head. Denies any dizziness, chest pain, shortness of breath, palpitations, visual changes prior to episode. Did not evaluate BSG at the time. Evaluated by PCP and noted to have left scalp laceration and scalp hematoma. Patient had denied CT head or ER evaluation at that time. Was reported patient was having headaches, had episode of visual loss for 2 days which has since resolved. Patient denies any falls since 6 weeks ago. --CT head: Suspected tiny acute versus subacute left parietal lobe subarachnoid hemorrhage adjacent to the left parietal scalp hematoma. Chronic left cerebellar infarct. Neurosurgery at [facility] was contacted-Dr. Robertson, who feels patient does not require transfer and recommends repeat CT head in 24 hours --Repeat CT head: . No significant change in the punctate hyperdense focus within the periphery of the left parietal lobe at the level the scalp injury. This could represent punctate subarachnoid hemorrhage/contusion or calcification. Continued [address] follow-up recommended to ensure stability. There is also a new punctate focus of increased density within the right side of the cortes which could be artifactual. Attention at follow-up is also recommended to exclude the less likely possibility of a punctate focus of hemorrhage. These findings were called/faxed to the referring physician following dictation. --Cannot obtain MRI due to pacemaker Appreciate neurology input Continue neurochecks Avoid NSAIDs, anticoagulants (4) Acute on chronic combined systolic (congestive) and diastolic (congestive) heart failure: Plan: Patient satting in the 90s on room air. There is a reading of O2 sat 87% on room air however it is noted pulse ox with poor waveform CXR: Cardiomegaly and pulmonary vascular congestion --ECHO: Normal LV chamber size with mild concentric LVH. Moderately reduced LV systolic function and abnormal septal wall motion consistent with pacemaker activation, otherwise moderate global hypokinesis. Grade 2 diastolic dysfunction. Mild aortic regurgitation, moderate mitral regurgitation, moderate tricuspid regurgitation, severe left atrial enlargement. EF 40 to 45%. Patient missed Lasix and spironolactone dosing on day of admission Received Lasix 40 mg IV X 1 Monitor I's and O's, daily weights, low-sodium diet Patient prescribed spironolactone 25 mg daily however has been taking 12.5 mg daily. Restart home diuretics Monitor volume status Atrial fibrillation with RVR. Chronic atrial fibrillation Chronic atrial fibrillation status post cardioversions and ablation in past. Not on anticoagulation secondary to recurrent falls, history of rectus sheath hematoma, subarachnoid hemorrhage Normal digoxin level Continue Cardizem, metoprolol Also on digoxin Elevated troponin Troponin: 0.079 Likely demand ischemia ACS less likely Denies chest pain ECHO Showed no wall motion abnormality LE swelling History IVC Filter Bilateral leg swelling with right greater than left. --Venous Doppler:No sonographic evidence of deep venous thrombosis. --Arterial Doppler:No significant stenosis or occlusion within the right lower extremity arterial system. Continue diuretics H/O Tachybrady syndrome, sinus node dysfunction S/P Pacemaker. Generator change on 12/13/2020 Pacemaker interrogation Hypokalemia Replace and Monitor BMP H/O frequent falls Patient uses walker at home PT/OT eval HTN Continue losartan, Cardizem, metoprolol succinate Monitor HLD Continue atorvastatin Hypothyroidism Continue levothyroxine DVT Prophylaxis SCDs Re: SAH Code Status Full code Disposition PT OT prior to discharge Admission and Anticipated Discharge Date Admission Date: March 05, 2021 Subjective Patient is seen and examined at bedside States having minimal left-sided headache Denies any chest pain, dizziness, nausea, abdominal pain Also denies any blurry, double vision Minimal right leg pain and JIN Review of Systems Review of Systems: All systems reviewed & are unremarkable except as noted in Subjective Physical Exam Physical Exam: Physical Exam: Vitals signs as noted above General Appearance:Moderately built and nourished, no apparent distress Head: normocephalic, + left scalp wound Eyes: normal inspection, EOMI Neck: supple, Trachea midline Respiratory/Chest: Normal breath sounds, Basal crackles Cardiovascular: Irregularly irregular, No murmur Abdomen/GI:Soft, Non tender, Bowel sounds present Extremities/Musculoskeletal:normal inspection, RLE edema Neurologic/Psych:AAOX3, 4/5 left hemiparesis Skin: normal color, warm Results & Data Results & Data ([facility]) Vital Signs (Past 12 Hours) Vital Signs Temp Pulse Pulse Resp BP BP Pulse Ox 03/06/21 19:01 37.1 C 83 18 129/73 95 03/06/21 16:29 127 H 03/06/21 11:00 37.1 C 82 15 126/79 95 03/06/21 07:36 37.1 C 90 18 123/86 95 Laboratory Results Short CBC 03/06/21 Range/Units 01:28 WBC 6.29 (4.8-10.8) K/uL Hgb 10.3 L (12.0-16.0) g/dL Hct 32.2 L (37-47) % Plt Count 119 L (130-400) K/uL BMP 03/06/21 01:28 Sodium 140 Potassium 4.7 D Chloride 109 H Carbon Dioxide 25 BUN 25 H Creatinine 0.67 Glucose 133 H Calcium 9.4 Cardiac Enzymes 03/05/21 03/06/21 Range/Units 21:08 01:28 Troponin I 0.126 H* 0.123 H* (0-0.045) ng/ml Liver Function 03/06/21 Range/Units 01:28 Total Bilirubin 0.6 (0.2-1) mg/dl AST 43 H (15-37) U/L ALT 40 (12-78) U/L Alkaline Phosphatase 108 (45-117) U/L Albumin 3.3 L (3.4-5.0) gm/dl Urine 03/05/21 Range/Units 21:59 Urine Color Yellow Urine Appearance Clear (Clear) Urine pH 7.0 (4.5-7.5) Ur Specific [place] 1.011 (1.000-1.030) Urine Protein 1+ H (Negative) Urine Glucose (UA) Negative (Negative)
[2021-03-06] MEDS: allopurinoL 300 MG TAB PO SCH (20:57)
[2021-03-06] MEDS: DIGOXIN 0.125 MG TAB PO SCH (20:58)
[2021-03-06] MEDS: ATORVASTATIN 40 MG TAB PO SCH (20:59)
[2021-03-06] MEDS: dilTIAZem HCL 240 MG CAPCR PO SCH (20:59)
[2021-03-06] MEDS ORDERED: INSULIN GLARGINE SOLOSTAR 100 UNITS/ML 3 ML PEN SC SCH (21:00)
[2021-03-06] MEDS: GABAPENTIN 300 MG CAP PO SCH (21:00)
[2021-03-06] MEDS: LOSARTAN POTASSIUM 50 MG TAB PO SCH (21:00)
[2021-03-07] MEDS: INSULIN ASPART 100 UNITS/ML 3 ML PEN SC SCH ×6 (00:07→20:22)
[2021-03-07] MEDS: LEVOTHYROXINE SODIUM 75 MCG TABLET PO SCH (05:39)
--- NOTE | 2021-03-07 05:40 | Electrocardiogram Report ---
Test Reason : Blood Pressure : / mmHG Vent. Rate : 103 BPM Atrial Rate : 048 BPM P-R Int : 000 ms QRS Dur : 174 ms QT Int : 434 ms P-R-T Axes : 000 -54 134 degrees QTc Int : 568 ms Atrial fibrillation with rapid ventricular response with premature ventricular or aberrantly conducte d complexes Left axis deviation Left bundle branch block Abnormal ECG When compared with ECG of 14-JUL-2016 09:40, QRS duration has increased Confirmed by Bg Toribio ([id number]) on 03/07/2021 5:39:24 AM Referred By: REFERRED SELF Confirmed By:Bg Toribio
[2021-03-07 06:16] LABS: Calcium 9.1 mg/dl (8.5-10.1); Creatinine Clr Calc Pharmacy 41.5 ml/min; Est GFR (African American) 73.4 ml/min; Est GFR (Non-African American) 63.4 ml/min; Potassium 4.2 mmol/L (3.5-5.1)
[2021-03-07 06:22] LABS: Hematocrit (blood only) 32.8 % (37-47); Hemoglobin 10.3 g/dL (12.0-16.0); Mean Corpuscular Hemoglobin 32.4 pg (25-34); Mean Corpuscular Hgb Conc 31.4 g/dL (32-36); Mean Corpuscular Volume 103.1 fL (80-100); Mean Platelet Volume 10.4 fL (7.4-10.4); Platelet Count 116 K/uL (130-400); RDW Coefficient of Variation 14.1 % (11.5-14.5); RDW Standard Deviation 53.3 fL (36.4-46.3); Red Blood Count 3.18 M/uL (4.2-5.4); White Blood Count 4.95 K/uL (4.8-10.8)
[2021-03-07] MEDS ORDERED: INSULIN GLARGINE SOLOSTAR 100 UNITS/ML 3 ML PEN SC SCH ×3 (09:00→21:00)
[2021-03-07] MEDS: METOPROLOL SUCC 50MG EXT REL TAB PO SCH ×2 (09:17→20:07)
[2021-03-07] MEDS: SPIRONOLACTONE 12.5 MG TAB PO SCH (09:18)
[2021-03-07] MEDS: FUROSEMIDE 20 MG TAB PO SCH (09:18)
[2021-03-07] MEDS: CHOLECALCIFEROL 1,000 UNITS 25 MCG TAB PO SCH (09:18)
[2021-03-07] MEDS: MAGNESIUM OXIDE 400 MG TAB PO SCH (09:19)
[2021-03-07] MEDS ORDERED: DOXYCYCLINE HYCLATE 100 MG CAP PO SCH (09:30)
[2021-03-07] MEDS: ACETAMINOPHEN 325 MG TAB PO PRN ×2 (09:48→18:08)
[2021-03-07] MEDS: DOXYCYCLINE HYCLATE 100 MG CAP PO SCH ×2 (10:01→20:06)
--- NOTE | 2021-03-07 10:49 | Surgery Consultation ---
Date of Consultation March 07, 2021 Assessment & Plan (1) Subarachnoid hemorrhage following injury: (2) Scalp wound: Wound of left scalp is healthy, to surface, with appropriate dressings in place. Continue daily Aquacel Ag and Opitfoam dressing changes until discharge, f/u at wound care center. She may be a candidate for epidermal grafting if wound does not epithelize. She was recently started on doxy due to wound cx, complete entire course fo antibiotics. Case was reviewed with Dr. Daniel. History of Present Illness Attending Physician: Ricco Sebastian MD History of Present Illness Roxana is being seen in consultation for laceration to her left posterior scalp. Injury occurred 6 weeks ago when patient fell in her kitchen. Patient reports she was standing, does not remember falling, woke up in blood. She was evaluated by PCP and noted to have left scalp laceration and scalp hematoma. Patient had denied CT head or ER evaluation at that time.She denies any falls since this occurred 6 weeks ago. She is currently admitted for syncope secondary to hypoglycemia. BSG in ED was 38. She has multiple comorbidities including history of MH tachybrady syndrome, sinus node dysfunction s/p dual-chamber pacemaker, s/p generator change on 12/13/2020, h/o permanent atrial fibrillation s/p multiple cardioversions and ablation not on anticoagulation secondary to fall history and history of intracranial hemorrhage in 2009 with supratherapeutic INR, residual left-sided weakness, ambulates with walker, insulin-dependent DM II, HTN, HLD, chronic combined CHF, pulmonary hypertension, H/O IVC filter, chronic iron deficiency, gout, hypothyroidism. Last A1C was 13, taken in November. Imaging performed: -CT head:Suspected tiny acute versus subacute left parietal lobe subarachnoid hemorrhage adjacent to the left parietal scalp hematoma. Chronic left cerebellar infarct. Neurosurgery at [facility] was contacted-Dr. Robertson, who feels patient does not require transfer and recommends repeat CT head in 24 hours --Repeat CT head:. No significant change in the punctate hyperdense focus within the periphery of the left parietal lobe at the level the scalp injury. This could represent punctate subarachnoid hemorrhage/contusion or calcification. Continued [address] follow-up recommended to ensure stability. There is also a new punctate focus of increased density within the right side of the cortes which could be artifactual. Attention at follow-up is also recommended to exclude the less likely possibility of a punctate focus of hemorrhage. These findings were called/faxed to the referring physician following dictation. --Cannot obtain MRI due to pacemaker Patient denies pain at site of scalp laceration. She has dressing in place. Culture obtained on scalp wound. Prelim results demonstrate staph- patient started on doxycycline. Allergies Allergy/AdvReac Type Severity Reaction Status Date / Time citalopram Allergy Unknown Verified 10/29/15 10:41 paroxetine Allergy Unknown Verified 10/29/15 10:41 Sulfa (Sulfonamide Allergy Unknown TOLERATES Verified 10/29/15 10:41 Antibiotics) LASIX venom-wasp protein Allergy Unknown HIVES Verified 10/29/15 10:41 celecoxib AdvReac Mild N/V Verified 03/03/12 19:22 Home Medications Medication Instructions Recorded Confirmed Type amoxicillin 500 mg capsule 500 mg PO UNKNOWN 12/13/20 03/05/21 History atorvastatin 40 mg tablet 40 mg PO HS 12/13/20 03/05/21 History insulin glargine 100 unit/mL (3 50 unit SUBCUT QAM 12/13/20 03/05/21 History mL) subcutaneous pen (Lantus Solostar U-100 Insulin) insulin lispro 100 unit/mL See Rx Instructions .ROUTE .COMPLEX 12/13/20 03/05/21 History subcutaneous pen (Humalog KwikPen (U-100) Insulin) levothyroxine 75 mcg tablet 75 mcg PO HS 12/13/20 03/05/21 History losartan 50 mg tablet 50 mg PO HS 12/13/20 03/05/21 History magnesium oxide 400 mg PO DAILY 12/13/20 03/05/21 History metoprolol succinate 50 mg 50 mg PO UD 12/13/20 03/05/21 History tablet,extended release 24 hr rizatriptan 5 mg tablet See Rx Instructions .ROUTE 12/13/20 03/06/21 History .COMPLEX PRN spironolactone 25 mg tablet 12.5 mg PO DAILY 12/13/20 03/05/21 History acetaminophen 500 mg tablet 500 mg PO Q6H PRN 03/05/21 03/05/21 History (Acetaminophen Extra Strength) allopurinol 300 mg tablet 300 mg PO HS 03/05/21 03/05/21 History cholecalciferol (vitamin D3) 25 25 mcg PO DAILY 03/05/21 03/05/21 History mcg (1,000 unit) tablet digoxin 125 mcg (0.125 mg) tablet 125 mcg PO DAILY@199903/05/21 03/05/21 History diltiazem HCl 240 mg 240 mg PO HS 03/05/21 03/05/21 History capsule,extended release 24 hr epinephrine 0.3 mg/0.3 mL 0.3 mg IM Q4H PRN 03/05/21 03/05/21 History injection, auto-injector furosemide 40 mg tablet 20 mg PO QAM 03/05/21 03/05/21 History gabapentin 300 mg capsule 300 mg PO HS 03/05/21 03/05/21 History hydrocodone 5 mg-acetaminophen 325 1 tab PO Q6 PRN 03/05/21 03/05/21 History mg tablet Patient History Medical History (Updated 03/07/21 @ 10:46 by Cristina Blackmon PA-C) Afib Cerebral hemorrhage "2010 left hemiparesis" Chronic anemia Chronic combined systolic and diastolic CHF (congestive heart failure) Diabetes mellitus, type II Gout Hematoma of rectus sheath Hemiplegia History of - cerebrovascular accident HLD (hyperlipidemia) HTN (hypertension) Hypothyroidism Pacemaker Presence of IVC filter Tachy-jodi syndrome Surgical History (Updated 03/05/21 @ 17:38 by Polly Marinelli PA-C) Status post appendectomy Status post cardiac pacemaker procedure Status post cataract extraction Status post cholecystectomy Status post hysterectomy Status post insertion of inferior vena caval filter Family History (Updated 03/05/21 @ 17:39 by Polly Marinelli PA-C) Daughter Breast cancer Mother Cancer pancreatic Father Heart disease Social History Smoking Status: Never smoker Second Hand Exposure: No; Do You Dip or Chew Tobacco: No; Hx Alcohol Use: No Hx Substance Use: No Preferred Language: [place] Communication Ability: Effective Laundry Routeman Required: No Beliefs That Will Affect Care: None Current Living Situation: Spouse Other Information That Helps Us Care for You: No Feels Safe at Home: Yes Safety Concerns: Feels Safe At This Time Assistive Devices: Glasses and Walker Review of Systems Constitutional: as per Subjective / HPI; no fever and no chills Integumentary: as per Subjective / HPI Physical Exam Physical Exam: Patient is alert and oriented. Dressing in place left posterior scalp- removed. Dressing is Optifoam and Aquacel Ag. There is a span, approx 4- 5cm of scalp with no hair growth, fresh epidermis. Wound bed 2 x 3 cm. Granulated to surface. Scant serous drainage. No odor. Minimal blood is expressed from wound periphery, likely old hematoma. Wound was re-dressed with Aquacel Ag and Optifoam. Results & Data ([facility]) Vital Signs (Past 12 Hours) Vital Signs Temp Pulse Pulse Resp BP Pulse Ox 03/07/21 07:40 36.4 C L 99 H 18 133/80 97 03/07/21 03:37 36.4 C L 72 16 131/83 93 03/07/21 01:26 104 H 03/06/21 22:36 36.4 C L 85 18 130/78 97 PG Care Time/CCT Total # of Minutes Spent Total Time Spent with Patient: Total time spent is greater than 50% in coordination of care (as documented) at patient's floor/unit and/or counseling patient: Coding Level of Care Code 00104 Office/OBS Consult Lvl 2 Diagnoses Subarachnoid hemorrhage following injury S06.6X0A Encounter type: initial encounter Loss of consciousness presence/duration: without LOC Scalp wound S01.00XA (1) Subarachnoid hemorrhage following injury Encounter type: initial encounter Loss of consciousness presence/duration: without LOC Qualified Code(s): S06.6X0A - Traumatic subarachnoid hemorrhage without loss of consciousness, initial encounter
--- NOTE | 2021-03-07 16:14 | Hospitalist Progress Note ---
Date of Service March 07, 2021 Assessment & Plan (1) Syncope: (2) Hypoglycemia: Plan: Insulin-dependent DM II Patient is 81-year-old female with PMH tachybrady syndrome, sinus node dysfunction s/p dual-chamber pacemaker, s/p generator change on 12/13/2020, h/o permanent atrial fibrillation s/p multiple cardioversions and ablation not on anticoagulation secondary to fall history and history of intracranial hemorrhage in 2009 with supratherapeutic INR, residual left-sided weakness, ambulates with walker, insulin-dependent DM II, HTN, HLD, chronic combined CHF, pulmonary hypertension, H/O IVC filter, chronic iron deficiency, gout, hypothyroidism presented to ER with complaint of syncope today and was found to have BSG of 38 and was given 250 mL D10 with repeat BSG of 178. Patient had 50 units Lantus and 10 units Humalog this morning and did eat breakfast. Missed dinner last night. Patient takes 50 units Lantus in the morning. She has Humalog to use 10 units with breakfast, 5 units with lunch and 18 units with dinner plus has correction sliding scale however patient only uses 10 units Humalog at breakfast does not take further throughout the day. Syncope Likely due to hypoglycemia DD: Recent brain bleed, R/O arrhythmia, Orthostatic Hypotension monitor for arrhythmias Pacemaker interrogation A1c: 13 and 11/16/2020 Hold home insulin, NovoLog correction insulin for now Monitor BSG's, and adjust insulin as needed Glycemic pharmacy consult [facility] orthostatics Fall precautions PT OT HbA1C: 10.3 today Monitor for hypoglycemia Need close follow-up with PCP upon discharge Suspected UTI Urine culture growing gram-negative bacilli Empirically started on Rocephin Scalp wound infection Urine culture growing staph species Empirically started on doxycycline Appreciate plastic surgery input Needs follow-up with wound clinic upon discharge (3) Subarachnoid hemorrhage: Plan: H/O syncopal episode and fall 6 weeks ago. Reported was standing in kitchen and next thing she knew she woke up lying on floor with blood coming from her head. Denies any dizziness, chest pain, shortness of breath, palpitations, visual changes prior to episode. Did not evaluate BSG at the time. Evaluated by PCP and noted to have left scalp laceration and scalp hematoma. Patient had denied CT head or ER evaluation at that time. Was reported patient was having headaches, had episode of visual loss for 2 days which has since resolved. Patient denies any falls since 6 weeks ago. --CT head: Suspected tiny acute versus subacute left parietal lobe subarachnoid hemorrhage adjacent to the left parietal scalp hematoma. Chronic left cerebellar infarct. Neurosurgery at [facility] was contacted-Dr. Robertson, who feels patient does not require transfer and recommends repeat CT head in 24 hours --Repeat CT head: . No significant change in the punctate hyperdense focus within the periphery of the left parietal lobe at the level the scalp injury. This could represent punctate subarachnoid hemorrhage/contusion or calcification. Continued [address] follow-up recommended to ensure stability. There is also a new punctate focus of increased density within the right side of the cortes which could be artifactual. Attention at follow-up is also recommended to exclude the less likely possibility of a punctate focus of hemorrhage. These findings were called/faxed to the referring physician following dictation. --Cannot obtain MRI due to pacemaker Appreciate neurology input Continue neurochecks Avoid NSAIDs, anticoagulants Will Repeat CT head, CTA head and 24 hours as recommended by neurology (4) Acute on chronic combined systolic (congestive) and diastolic (congestive) heart failure: Plan: Patient satting in the 90s on room air. There is a reading of O2 sat 87% on room air however it is noted pulse ox with poor waveform CXR: Cardiomegaly and pulmonary vascular congestion --ECHO: Normal LV chamber size with mild concentric LVH. Moderately reduced LV systolic function and abnormal septal wall motion consistent with pacemaker acti vation, otherwise moderate global hypokinesis. Grade 2 diastolic dysfunction. Mild aortic regurgitation, moderate mitral regurgitation, moderate tricuspid regurgitation, severe left atrial enlargement. EF 40 to 45%. Patient missed Lasix and spironolactone dosing on day of admission Received Lasix 40 mg IV X 1 Monitor I's and O's, daily weights, low-sodium diet Patient prescribed spironolactone 25 mg daily however has been taking 12.5 mg daily. Continue home diuretics Monitor volume status Consider IV diuretics as needed Atrial fibrillation with RVR. Chronic atrial fibrillation Chronic atrial fibrillation status post cardioversions and ablation in past. Not on anticoagulation secondary to recurrent falls, history of rectus sheath hematoma, subarachnoid hemorrhage Normal digoxin level Continue Cardizem, metoprolol Also on digoxin Elevated troponin Troponin: 0.079 Likely demand ischemia ACS less likely Denies chest pain ECHO Showed no wall motion abnormality LE swelling History IVC Filter Bilateral leg swelling with right greater than left. --Venous Doppler:No sonographic evidence of deep venous thrombosis. --Arterial Doppler:No significant stenosis or occlusion within the right lower extremity arterial system. Continue diuretics Check LE X ray to rule out fracture H/O Tachybrady syndrome, sinus node dysfunction S/P Pacemaker. Generator change on 12/13/2020 Pacemaker interrogation Hypokalemia Replace and Monitor BMP H/O frequent falls Patient uses walker at home PT/OT eval HTN Continue losartan, Cardizem, metoprolol succinate Monitor HLD Continue atorvastatin Hypothyroidism Continue levothyroxine DVT Prophylaxis SCDs Re: SAH Code Status Full code Disposition PT OT prior to discharge Admission and Anticipated Discharge Date Admission Date: March 05, 2021 Subjective Patient is seen and examined at bedside Persistent mild headache Also states having persistent bilateral lower extremity pain right greater than left No new complaints Wound culture growing staph species Urine culture growing gram-negative bacilli Denies any chest pain, shortness of breath, dizziness, nausea, abdominal pain Review of Systems Review of Systems: All systems reviewed & are unremarkable except as noted in Subjective Physical Exam Physical Exam: Physical Exam: Vitals signs as noted above General Appearance:Moderately built and nourished, no apparent distress Head: normocephalic, + left scalp wound Eyes: normal inspection, EOMI Neck: supple, Trachea midline Respiratory/Chest: Normal breath sounds, Basal crackles Cardiovascular: Irregularly irregular, No murmur Abdomen/GI:Soft, Non tender, Bowel sounds present Extremities/Musculoskeletal:normal inspection, RLE edema Neurologic/Psych:AAOX3, 4/5 left hemiparesis Skin: normal color, warm Results & Data Results & Data ([facility]) Vital Signs (Past 12 Hours) Vital Signs Temp Pulse Resp BP Pulse Ox 03/07/21 16:04 37.0 C 64 18 124/64 95 03/07/21 11:55 36.9 C 65 17 126/75 99 03/07/21 07:40 36.4 C L 99 H 18 133/80 97 Laboratory Results Short CBC 03/07/21 Range/Units 05:37 WBC 4.95 (4.8-10.8) K/uL Hgb 10.3 L (12.0-16.0) g/dL Hct 32.8 L (37-47) % Plt Count 116 L (130-400) K/uL [facility] 03/07/21 05:37 Sodium 139 Potassium 4.2 Chloride 108 H Carbon Dioxide 27 BUN 31 H Creatinine 0.87 Glucose 173 H Calcium 9.1
--- NOTE | 2021-03-07 16:43 | XRay Report ---
XR tibia fibula LT 2V, XR tibia fibula RT 2V HISTORY: 81 years-old Female H/O Fall, Pain acute bilateral lower leg pain status post fall COMPARISON: None TECHNIQUE: 2 views of the bilateral tibia and fibula. Total of 4 images were submitted. FINDINGS: LEFT: Demineralized appearance of the bones. Partially imaged intramedullary nail the distal femur. Chondro calcinosis. Osteoarthritis of the knee and ankle with arterial calcifications. No acute fracture, dis location or opaque foreign body identified. RIGHT: Demineralized appearance of the bones. Questioned right knee joint effusion. Chondrocalcinosis. Osteo arthritis of the knee and ankle. Arterial calcifications. No acute fracture or dislocation. Coarse dy strophic calcifications are noted within the distribution of the distal Achilles tendon with soft tis nan thickening. Correlate clinically to exclude chronic tendon tear. IMPRESSION: No acute fracture or dislocation. ACT 112: Negative or not required by law. The above report was generated using voice recognition software. It may contain grammatical, syntax o r spelling errors. Electronically signed by: Sarthak Quigley M.D. 03/07/2021 4:41 PM
[2021-03-07] MEDS: cefTRIAXone SODIUM 1,000 MG in DEXTROSE 5% 50 ML IV SCH (17:34)
[2021-03-07] MEDS: LOSARTAN POTASSIUM 50 MG TAB PO SCH (20:06)
[2021-03-07] MEDS: allopurinoL 300 MG TAB PO SCH (20:07)
[2021-03-07] MEDS: GABAPENTIN 300 MG CAP PO SCH (20:07)
[2021-03-07] MEDS: dilTIAZem HCL 240 MG CAPCR PO SCH (20:07)
[2021-03-07] MEDS: DIGOXIN 0.125 MG TAB PO SCH (20:07)
[2021-03-07] MEDS: ATORVASTATIN 40 MG TAB PO SCH (20:08)
[2021-03-07] MEDS: INSULIN GLARGINE SOLOSTAR 100 UNITS/ML 3 ML PEN SC SCH (20:23)
[2021-03-08] MEDS: LEVOTHYROXINE SODIUM 75 MCG TABLET PO SCH (05:31)
[2021-03-08] MEDS: ACETAMINOPHEN 325 MG TAB PO PRN ×3 (05:31→22:04)
[2021-03-08 06:27] LABS: Hematocrit (blood only) 33.3 % (37-47); Hemoglobin 10.7 g/dL (12.0-16.0); Mean Corpuscular Hemoglobin 32.9 pg (25-34); Mean Corpuscular Hgb Conc 32.1 g/dL (32-36); Mean Corpuscular Volume 102.5 fL (80-100); Mean Platelet Volume 10.4 fL (7.4-10.4); Platelet Count 124 K/uL (130-400); RDW Coefficient of Variation 14.1 % (11.5-14.5); Red Blood Count 3.25 M/uL (4.2-5.4); White Blood Count 5.62 K/uL (4.8-10.8)
[2021-03-08] MEDS ORDERED: KETOROLAC TROMETHAMINE 15 MG/ML VIAL IV ONE (06:38)
--- NOTE | 2021-03-08 06:49 | Electrocardiogram Report ---
Test Reason : Blood Pressure : / mmHG Vent. Rate : 085 BPM Atrial Rate : 094 BPM P-R Int : 000 ms QRS Dur : 152 ms QT Int : 402 ms P-R-T Axes : 000 -36 152 degrees QTc Int : 478 ms Atrial fibrillation with occasional ventricular-paced complexes and with premature ventricular or víctor rrantly conducted complexes Left axis deviation Left bundle branch block Abnormal ECG When compared with ECG of 05-MAR-2021 13:42, Ventricular paced complex is now present Confirmed by Bg Toribio ([id number]) on 03/08/2021 6:49:03 AM Referred By: REFERRED SELF Confirmed By:Bg Toribio
[2021-03-08 06:53] LABS: BUN Creatinine Ratio 42.5 (10-20); Creatinine Clr Calc Pharmacy 52.3 ml/min; Est GFR (Non-African American) 82.8 ml/min; Potassium 4.2 mmol/L (3.5-5.1)
--- NOTE | 2021-03-08 07:05 | Electrocardiogram Report ---
Test Reason : Blood Pressure : / mmHG Vent. Rate : 072 BPM Atrial Rate : 082 BPM P-R Int : 000 ms QRS Dur : 156 ms QT Int : 432 ms P-R-T Axes : 000 -08 172 degrees QTc Int : 473 ms Atrial fibrillation with frequent ventricular-paced complexes and with premature ventricular or aberr antly conducted complexes Left bundle branch block Abnormal ECG When compared with ECG of 06-MAR-2021 17:59, Vent. rate has decreased BY 13 BPM Confirmed by Bg Toribio ([id number]) on 03/08/2021 7:05:34 AM Referred By: REFERRED SELF Confirmed By:Bg Toribio
--- NOTE | 2021-03-08 07:06 | Electrocardiogram Report ---
Test Reason : Blood Pressure : / mmHG Vent. Rate : 079 BPM Atrial Rate : 017 BPM P-R Int : 000 ms QRS Dur : 154 ms QT Int : 432 ms P-R-T Axes : 000 -03 175 degrees QTc Int : 495 ms Atrial fibrillation with frequent ventricular-paced complexes and with premature ventricular or aberr antly conducted complexes Left bundle branch block Abnormal ECG When compared with ECG of 07-MAR-2021 05:48, Vent. rate has increased BY 7 BPM Confirmed by Bg Toribio ([id number]) on 03/08/2021 7:05:55 AM Referred By: REFERRED SELF Confirmed By:Bg Toribio
[2021-03-08] MEDS: FUROSEMIDE 20 MG TAB PO SCH (08:34)
[2021-03-08] MEDS: METOPROLOL SUCC 50MG EXT REL TAB PO SCH ×2 (08:34→21:12)
[2021-03-08] MEDS: MAGNESIUM OXIDE 400 MG TAB PO SCH (08:35)
[2021-03-08] MEDS: SPIRONOLACTONE 12.5 MG TAB PO SCH (08:36)
[2021-03-08] MEDS: INSULIN ASPART 100 UNITS/ML 3 ML PEN SC SCH ×4 (08:37→21:18)
[2021-03-08] MEDS: CHOLECALCIFEROL 1,000 UNITS 25 MCG TAB PO SCH (08:39)
[2021-03-08] MEDS: INSULIN GLARGINE SOLOSTAR 100 UNITS/ML 3 ML PEN SC SCH ×2 (08:40→21:19)
[2021-03-08] MEDS: cefTRIAXone SODIUM 1,000 MG in DEXTROSE 5% 50 ML IV SCH (08:52)
--- NOTE | 2021-03-08 10:40 | Pharmacy Report ---
Pharmacy Glycemic Short Note 2 - Date of Service March 08, 2021 - Glycemic Short BSG Results (Last 24 hours): 03/07/21 03/07/21 03/07/21 11:32 17:43 20:21 Glucose POC Glucose 224 H 168 H 208 H 03/07/21 03/08/21 03/08/21 23:56 03:57 05:55 Glucose 180 H POC Glucose 170 H 204 H 03/08/21 07:48 Glucose POC Glucose 174 H OUTPATIENT ANTIDIABETIC REGIMEN: * Lantus 50 units QAM * Humalog 01/17/18 + correction * A1c 10.3% (03/06/21) ASSESSMENT: 03/08 * BSGs yesterday of 181, 224, 168, 208, and 170 mg/dL * Received 68 units of insulin (45 units of basal and 23 units of pran dial/correctional bolus) * Fasting BSG of 174 mg/dL this morning - will plan on increasing basal insulin today * In light of persistent elevation in BSGs throughout the day yesterday, will tighten Novolog parameters * Elevated BSG at lunchtime (326 mg/dL) - will tighten Novolog for now and hold off on IV insulin bolus in light of prior hypoglycemia 03/06 * Patient with subarachnoid hemorrhage, hypoglycemic on admission * Lantus dose reduced to 15 units this morning, will set sliding scale for PM up to weight based stress of 3 (~40% reduction from home dose) * Lunch BSG 159 mg/dL will continue current novolog parameters PLAN FOR INPATIENT GLYCEMIC CONTROL: * Hold outpatient oral diabetes medications * Basal insulin * Lantus 25 units SC this morning * Lantus 20-30 units SC HS (see EHR for details) * Bolus insulin * NovoLog per scale ACHS or Q6hrs while NPO * Goal Range: Low 110 mg/dL - High 140 mg/dL * Correction Factor: 20 mg/dL/unit * Nutritional / Prandial insulin per carb ratio of 1 unit per 7 grams CHO consumed * checks with same parameters PLAN FOR DISCHARGE: * HbA1c is significantly elevated at 10.3%, goal of less than 8% is likely reasonable for this patient * Patient reportedly regularly forgets to take lunch/dinner Humalog * Will follow inpatient insulin needs to see if adjustment to Humalog is warranted at time of discharge * Current outpatient insulin doses seem reasonable based on current inpatient requirements, defer to MTM clinic for further dose changes * Patient presented following syncopal episode/hypoglycemia - very important that patient can identify signs/symptoms of hypoglycemia and that she has glucose tablets available for treatment. Reinforce importance of self- monitoring of BSG, ideally ACHS. Of note, perinatal educator did meet with patient and education was provided.
[2021-03-08] MEDS: DOXYCYCLINE HYCLATE 100 MG CAP PO SCH ×2 (12:06→21:12)
[2021-03-08] MEDS ORDERED: OPTIRAY 320 125ml IV ONE (14:02)
--- NOTE | 2021-03-08 14:36 | CT Scan Report ---
CT angio head wo/w HISTORY: 81 years-old Female Subarachnoid hemorrhage, subsequent treatment strategy. Follow-up study in a patient with subarachnoid hemorrhage. COMPARISON: Head CT 03/06/2021. TECHNIQUE: CTA of the head was obtained both with and without the use of 120 mL Optiray 320. A dose l owering technique was used consistent with the principals of NAVA. FINDINGS: CT HEAD: Mildly motion degraded exam. Age-related involutional changes. White matter hypodensities suggest chr onic microvascular ischemic disease. Cerebral vascular and senescent basal ganglia calcifications. Ch ronic left cerebellar infarct. 3 mm hyperdense cortical/subcortical focus of the left parietal lobe o n image 19 series 2 appears stable to slightly increased in size from the 03/06/2021 exam. The recent ly described punctate focus of increased attenuation within the right aspect of the cortes is not defin itively seen. No midline shift, hydrocephalus or acute territorial infarct. Small contusion with laceration at the left parietal scalp redemonstrated. No acute calvarial fractur e. Prior bilateral lens repair. Mastoid air cells and middle ear cavities are generally clear. CTA: Atherosclerotic plaque of the cavernous and supraclinoid segments of the internal carotid arteries re sults in mild multifocal luminal narrowing. The middle and anterior cerebral arteries are patent. The distal vertebral arteries are patent. Atherosclerotic plaque of the V4 segments without high-grade s tenosis. The basilar artery is patent. Mild multifocal luminal narrowing of the posterior cerebral ar teries. The cerebral venous sinuses are patent. No abnormal intra-axial or extra-axial enhancement. IMPRESSION: 1. 3 mm hyperdense focus within the cortical left parietal lobe adjacent to the acute left parietal s calp injury appears stable to slightly increased in size from the 03/06/2021 study suspicious for a s mall acute cortical contusion. Continued 48-hour head CT follow-up recommended. 2. Previously questioned punctate hyperdensity of the cortes is not identified and may have been artifa ctual. 3. CTA demonstrates no aneurysm, dissection, high-grade stenosis or arterial occlusion. 4. Chronic findings as above. ACT 112: Negative or not required by law. The above report was generated using voice recognition software. It may contain grammatical, syntax o r spelling errors. Dictated: 03/08/2021 2:10 PM Transcribed: 03/08/2021 2:26 PM Pricila [id number] [email or web address] Electronically signed by: Sarthak Quigley M.D. 03/08/2021 2:35 PM
--- NOTE | 2021-03-08 15:22 | Communication Note ---
Date of Service: March 08, 2021 She is doing well today. she would like to go home. Her vital signs have been stable. imaging CTA head-. 3 mm hyperdense focus within the cortical left parietal lobe adjacent to the acute left parietal scalp injury appears stable to slightly increased in size from the 03/06/2021 study suspicious for a small acute cortical contusion. Continued 48-hour head CT follow-up recommended. Previously questioned punctate hyperdensity of the cortes is not identified and may have been artifactual. CTA demonstrates no aneurysm, dissection, high-grade stenosis or arterial occlusion. Chronic findings as above. A/P: 1. ok from neurology stand point to discharge to home 2. acute left parietal lobe no vascular finding 3. CT head in 1 week or sooner with MS change will sign of for now will be available for questions concerns I have reviewed and discussed the above plan with Kaci Valles PA-C and agree lately with the outlined recommendations Terrance Gonzales MD
--- NOTE | 2021-03-08 16:28 | Surgery Progress Note ---
Date of Service March 08, 2021 Assessment & Plan (1) Scalp wound: Plan: Wound of left scalp is healthy, granulated up to surface. Continue daily Aquacel Ag and Opitfoam dressing changes until discharge/at home, f/u at wound care center next week if discharged. She may be a candidate for epidermal grafting if wound does not epithelize.Patient did express frustration that wound has been present for a few weeks; given small size and evidence of healing, I feel c onservative management is appropriate and that FTSG not indicated at thisi time. Will sign off. Please reconsult if needed. Admission and Anticipated Discharge Date Admission Date: March 05, 2021 Subjective Seen at bedside today. No complaints. Wants to go home. Physical Exam Physical Exam: Patient is alert and oriented. Dressing in place left posterior scalp- removed. Dressing is Optifoam and Aquacel Ag. There is a span, approx 4- 5cm of scalp with no hair growth. Wound bed 2 x 3 cm. Granulated to surface. Scant serous drainage. No odor. Results & Data ([facility]) Vital Signs (Past 12 Hours) Vital Signs Temp Pulse Resp BP Pulse Ox 03/08/21 16:10 98.8 F 55 L 16 127/70 95 03/08/21 15:24 93 03/08/21 11:41 98.4 F 61 18 134/73 93 03/08/21 06:55 97.7 F 73 17 132/71 95 PG Care Time/CCT Total # of Minutes Spent Total Time Spent with Patient: Total time spent is greater than 50% in coordination of care (as documented) at patient's floor/unit and/or counseling patient: Coding Level of Care Code 53043 Subseq Hosp Care Lvl 2 Diagnoses Scalp wound S01.00XA
--- NOTE | 2021-03-08 16:49 | Hospitalist Progress Note ---
Date of Service March 08, 2021 Assessment & Plan (1) Syncope: (2) Hypoglycemia: Plan: per Dr. Sebastian's notes with addendum including Diagnoses below: Insulin-dependent DM II Patient is 81-year-old female with PMH tachybrady syndrome, sinus node dysfunction s/p dual-chamber pacemaker, s/p generator change on 12/13/2020, h/o permanent atrial fibrillation s/p multiple cardioversions and ablation not on anticoagulation secondary to fall history and history of intracranial hemorrhage in 2009 with supratherapeutic INR, residual left-sided weakness, ambulates with walker, insulin-dependent DM II, HTN, HLD, chronic combined CHF, pulmonary hypertension, H/O IVC filter, chronic iron deficiency, gout, hypothyroidism presented to ER with complaint of syncope today and was found to have BSG of 38 and was given 250 mL D10 with repeat BSG of 178. Patient had 50 units Lantus and 10 units Humalog this morning and did eat breakfast. Missed dinner last night. Patient takes 50 units Lantus in the morning. She has Humalog to use 10 units with breakfast, 5 units with lunch and 18 units with dinner plus has correction sliding scale however patient only uses 10 units Humalog at breakfast does not take further throughout the day. Syncope Likely due to hypoglycemia DD: Recent brain bleed, R/O arrhythmia, Orthostatic Hypotension monitor for arrhythmias Pacemaker interrogation A1c: 13 and 11/16/2020 Hold home insulin, NovoLog correction insulin for now Monitor BSG's, and adjust insulin as needed Glycemic pharmacy consult Echo orthostatics Fall precautions PT OT HbA1C: 10.3 today Monitor for hypoglycemia Need close follow-up with PCP upon discharge 03/08 BSG elevated today Insulin adjustments per Pharmacy Glycemic control service Klebsiella UTI per Urine Culture continue Ceftri Day 2 Scalp wound infection- MSSA wound culture : MSSA continue Doxycycline Appreciate plastic surgery input Needs follow-up with wound clinic upon discharge (3) Subarachnoid hemorrhage: Plan: H/O syncopal episode and fall 6 weeks ago. Reported was standing in kitchen and next thing she knew she woke up lying on floor with blood coming from her head. Denies any dizziness, chest pain, shortness of breath, palpitations, visual changes prior to episode. Did not evaluate BSG at the time. Evaluated by PCP and noted to have left scalp laceration and scalp hematoma. Patient had denied CT head or ER evaluation at that time. Was reported patient was having headaches, had episode of visual loss for 2 days which has since resolved. Patient denies any falls since 6 weeks ago. --CT head: Suspected tiny acute versus subacute left parietal lobe subarachnoid hemorrhage adjacent to the left parietal scalp hematoma. Chronic left cerebellar infarct. Neurosurgery at [facility] was contacted-Dr. Robertson, who feels patient does not require transfer and recommends repeat CT head in 24 hours --Repeat CT head: . No significant change in the punctate hyperdense focus within the periphery of the left parietal lobe at the level the scalp injury. This could represent punctate subarachnoid hemorrhage/contusion or calcification. Continued [address] follow-up recommended to ensure stability. There is also a new punctate focus of increased density within the right side of the cortes which could be artifactual. Attention at follow-up is also recommended to exclude the less likely possibility of a punctate focus of hemorrhage. These findings were called/faxed to the referring physician following dictation. --Cannot obtain MRI due to pacemaker Appreciate neurology input Continue neurochecks Avoid NSAIDs, anticoagulants Will Repeat CT head, CTA head and 24 hours as recommended by neurology 03/08 CT head: 1. 3 mm hyperdense focus within the cortical left parietal lobe adjacent to the acute left parietal scalp injury appears stable to slightly increased in size from the 03/06/2021 study suspicious for a small acute cortical contusion. Continued 48-hour head CT follow-up recommended. 2. Previously questioned punctate hyperdensity of the cortes is not identified and may have been artifactual. 3. CTA demonstrates no aneurysm, dissection, high-grade stenosis or arterial occlusion. 4. Chronic findings as above. no neuro symptoms repeat CT head 03/10 (4) Acute on chronic combined systolic (congestive) and diastolic (congestive) heart failure: Plan: Patient satting in the 90s on room air. There is a reading of O2 sat 87% on room air however it is noted pulse ox with poor waveform CXR: Cardiomegaly and pulmonary vascular congestion --ECHO: Normal LV chamber size with mild concentric LVH. Moderately reduced LV systolic function and abnormal septal wall motion consistent with pacemaker activation, otherwise moderate global hypokinesis. Grade 2 diastolic dysfunction. Mild aortic regurgitation, moderate mitral regurgitation, moderate tricuspid regurgitation, severe left atrial enlargement. EF 40 to 45%. Patient missed Lasix and spironolactone dosing on day of admission Received Lasix 40 mg IV X 1 Monitor I's and O's, daily weights, low-sodium diet Patient prescribed spironolactone 25 mg daily however has been taking 12.5 mg daily. Continue home diuretics Monitor volume status Consider IV diuretics as needed 03/08 additional Lasix 20mg PO ordered at PM monitor Atrial fibrillation with RVR. Chronic atrial fibrillation Chronic atrial fibrillation status post cardioversions and ablation in past. Not on anticoagulation secondary to recurrent falls, history of rectus sheath hematoma, subarachnoid hemorrhage Normal digoxin level Continue Cardizem, metoprolol, digoxin Elevated troponin Troponin: 0.079 Likely demand ischemia ACS less likely Denies chest pain ECHO Showed no wall motion abnormality LE swelling History IVC Filter Bilateral leg swelling with right greater than left. --Venous Doppler:No sonographic evidence of deep venous thrombosis. --Arterial Doppler:No significant stenosis or occlusion within the right lower extremity arterial system. Continue diuretics Check LE X ray: negative H/O Tachybrady syndrome, sinus node dysfunction S/P Pacemaker. Generator change on 12/13/2020 Pacemaker interrogation: will discuss with Cardiology Hypokalemia Replace and Monitor BMP H/O frequent falls Patient uses walker at home PT/OT eval HTN Continue losartan, Cardizem, metoprolol succinate Monitor HLD Continue atorvastatin Hypothyroidism Continue levothyroxine DVT Prophylaxis SCDs Re: SAH Code Status Full code Disposition PT OT prior to discharge patient would like to be discharged home when medically stable plan of care discussed with patient in detail and at length all questions answered she is understanding, agreeable, comfortable with the plan of care Admission and Anticipated Discharge Date Admission Date: March 05, 2021 Subjective ff up for syncope, hypoglycemia etc seen resting in bed, comfortable sitting up in good spirits states she feels improved today compared to yesterday no presyncope/syncope BSGs elevated earlier today no chest pain, dyspnea, palpitations, dizziness no pain on the scalp no other symptoms Review of Systems Review of Systems: all noted and negative except for above Physical Exam Physical Exam: General- oriented x 2, not in distress, speaks in sentences with no effort or accessory muscle use head- scalp wound on the parietal scalp- open but no discharge, signs of infection Eyes- anicteric Neck- mild JVD Lungs- mild rales at the bases Heart- normal rate, regular rhythm; no murmurs Abdomen- normal bowel sounds, nondistended, soft, nontender Extremities- mild pretibial edema, no calf tenderness Neuro- alert, oriented x 3; no gross focal neurologic deficits Skin- warm & dry Results & Data Results & Data ([facility]) Vital Signs (Past 12 Hours) Vital Signs Temp Pulse Resp BP Pulse Ox 03/08/21 16:10 37.1 C 55 L 16 127/70 95 03/08/21 15:24 93 03/08/21 11:41 36.9 C 61 18 134/73 93 03/08/21 06:55 36.5 C 73 17 132/71 95 all noted and reviewed including below
[2021-03-08] MEDS ORDERED: FUROSEMIDE 20 MG TAB PO ONE (17:30)
[2021-03-08] MEDS: dilTIAZem HCL 240 MG CAPCR PO SCH (21:11)
[2021-03-08] MEDS: ATORVASTATIN 40 MG TAB PO SCH (21:12)
[2021-03-08] MEDS: allopurinoL 300 MG TAB PO SCH (21:12)
[2021-03-08] MEDS: DIGOXIN 0.125 MG TAB PO SCH (21:12)
[2021-03-08] MEDS: LOSARTAN POTASSIUM 50 MG TAB PO SCH (21:12)
[2021-03-08] MEDS: GABAPENTIN 300 MG CAP PO SCH (21:12)
[2021-03-09] MEDS: INSULIN ASPART 100 UNITS/ML 3 ML PEN SC SCH ×6 (00:01→20:43)
[2021-03-09] MEDS: LEVOTHYROXINE SODIUM 75 MCG TABLET PO SCH (05:45)
[2021-03-09] MEDS: CHOLECALCIFEROL 1,000 UNITS 25 MCG TAB PO SCH (08:06)
[2021-03-09] MEDS: METOPROLOL SUCC 50MG EXT REL TAB PO SCH ×2 (08:06→20:42)
[2021-03-09] MEDS: SPIRONOLACTONE 12.5 MG TAB PO SCH (08:06)
[2021-03-09] MEDS: FUROSEMIDE 20 MG TAB PO SCH (08:06)
[2021-03-09] MEDS: MAGNESIUM OXIDE 400 MG TAB PO SCH (08:07)
[2021-03-09] MEDS: INSULIN GLARGINE SOLOSTAR 100 UNITS/ML 3 ML PEN SC SCH ×2 (08:08→20:43)
[2021-03-09] MEDS: cefTRIAXone SODIUM 1,000 MG in DEXTROSE 5% 50 ML IV SCH (08:18)
[2021-03-09] MEDS: ACETAMINOPHEN 325 MG TAB PO PRN ×2 (08:18→16:13)
[2021-03-09] MEDS: DOXYCYCLINE HYCLATE 100 MG CAP PO SCH ×2 (11:49→20:41)
--- NOTE | 2021-03-09 13:16 | Cardiology Consultation ---
Date of Consultation March 09, 2021 Assessment & Plan (1) Scalp wound: (2) Hypoglycemia: (3) Diabetes mellitus, type II: (4) Pacemaker: (5) Systolic CHF, chronic: (6) Atrial fibrillation: This is an elderly 81-year-old female with multiple complex cardiac problems. She had a hypoglycemic episode at [facility]. She hit her head and there is a scalp wound. Thankfully she is not on any anticoagulation due to history of previous frequent falls. From a cardiac standpoint I would continue all her other medications. No additional cardiac testing is indicated. History of Present Illness Attending Physician: Chris Lawson MD History of Present Illness This is an elderly female with complex cardiac history as outlined below. She was in her usual state of health and was at [facility] when she had a hypoglycemic episode and was brought to the emergency department where she has been admitted. Her initial blood glucose was 38. She was resuscitated with IV fluids and dextrose. She has no ongoing cardiac complaints today. Past Medical History: 1.Drug-induced valvular pathology 2.History of symptomatic poorly tolerated paroxysmal atrial fibrillation status post multiple cardioversions, last in February 2014, now with chronic persistent atrial fibrillation. 1.Sinus node dysfunction, Tachy-Mick Syndrome, s/p 10/18/2009 dual chamber pacemaker implantation, status post generator exchange on December 13, 2020 2.Patient intolerant to past use of Sotalol and Tikosyn. 3.Amiodarone failed to maintain sinus 4.Status post September 2014 partial/modified AVJ ablation at [facility] 3.Contraindications to anticoagulation - frequent falls, April 2014 large rectus sheath hematoma with extraperitoneal pelvic blood, past subarachnoid hemorrhage in November 2009 4.Chronic systolic congestive heart failure 5.Chronic diastolic congestive heart failure 6.Hypertension, hypertensive heart disease. 7.Type 2 diabetes mellitus with diabetic neuropathy 8.Anxiety disorder 9.Dyslipidemia 10.Obesity 11.Hypothyroidism 12.Gastroesophageal reflux 13.Iron deficiency anemia 14.Gout 15.Chronic back pain, lumbosacral neuritis 16.Vitamin D deficiency 17.Renal lithiasis 18.Osteoarthritis 19.Osteoporosis 20.Macular degeneration. Allergies Allergy/AdvReac Type Severity Reaction Status Date / Time citalopram Allergy Unknown Verified 10/29/15 10:41 paroxetine Allergy Unknown Verified 10/29/15 10:41 Sulfa (Sulfonamide Allergy Unknown TOLERATES Verified 10/29/15 10:41 Antibiotics) LASIX venom-wasp protein Allergy Unknown HIVES Verified 10/29/15 10:41 celecoxib AdvReac Mild N/V Verified 03/03/12 19:22 Home Medications Medication Instructions Recorded Confirmed Type amoxicillin 500 mg capsule 500 mg PO UNKNOWN 12/13/20 03/05/21 History atorvastatin 40 mg tablet 40 mg PO HS 12/13/20 03/05/21 History insulin glargine 100 unit/mL (3 50 unit SUBCUT QAM 12/13/20 03/05/21 History mL) subcutaneous pen (Lantus Solostar U-100 Insulin) insulin lispro 100 unit/mL See Rx Instructions .ROUTE .COMPLEX 12/13/20 03/05/21 History subcutaneous pen (Humalog KwikPen (U-100) Insulin) levothyroxine 75 mcg tablet 75 mcg PO HS 12/13/20 03/05/21 History losartan 50 mg tablet 50 mg PO HS 12/13/20 03/05/21 History magnesium oxide 400 mg PO DAILY 12/13/20 03/05/21 History metoprolol succinate 50 mg 50 mg PO UD 12/13/20 03/05/21 History tablet,extended release 24 hr rizatriptan 5 mg tablet See Rx Instructions .ROUTE 12/13/20 03/06/21 History .COMPLEX PRN spironolactone 25 mg tablet 12.5 mg PO DAILY 12/13/20 03/05/21 History acetaminophen 500 mg tablet 500 mg PO Q6H PRN 03/05/21 03/05/21 History (Acetaminophen Extra Strength) allopurinol 300 mg tablet 300 mg PO HS 03/05/21 03/05/21 History cholecalciferol (vitamin D3) 25 25 mcg PO DAILY 03/05/21 03/05/21 History mcg (1,000 unit) tablet digoxin 125 mcg (0.125 mg) tablet 125 mcg PO DAILY@199903/05/21 03/05/21 History diltiazem HCl 240 mg 240 mg PO HS 03/05/21 03/05/21 History capsule,extended release 24 hr epinephrine 0.3 mg/0.3 mL 0.3 mg IM Q4H PRN 03/05/21 03/05/21 History injection, auto-injector furosemide 40 mg tablet 20 mg PO QAM 03/05/21 03/05/21 History gabapentin 300 mg capsule 300 mg PO HS 03/05/21 03/05/21 History hydrocodone 5 mg-acetaminophen 325 1 tab PO Q6 PRN 03/05/21 03/05/21 History mg tablet Patient History Medical History Afib Cerebral hemorrhage "2010 left hemiparesis" Chronic anemia Chronic combined systolic and diastolic CHF (congestive heart failure) Diabetes mellitus, type II Gout Hematoma of rectus sheath Hemiplegia History of - cerebrovascular accident HLD (hyperlipidemia) HTN (hypertension) Hypothyroidism Pacemaker Presence of IVC filter Tachy-mick syndrome Surgical History Status post appendectomy Status post cardiac pacemaker procedure Status post cataract extraction Status post cholecystectomy Status post hysterectomy Status post insertion of inferior vena caval filter Family History Daughter Breast cancer Mother Cancer pancreatic Father Heart disease Social History Smoking Status: Never smoker Second Hand Exposure: No; Do You Dip or Chew Tobacco: No; Hx Alcohol Use: No Hx Substance Use: No Preferred Language: Indonesian Communication Ability: Effective Preassembler And Inspector Required: No Beliefs That Will Affect Care: None Current Living Situation: Spouse Other Information That Helps Us Care for You: No Feels Safe at Home: Yes Safety Concerns: Feels Safe At This Time Assistive Devices: Glasses Review of Systems Review of Systems: Review of Systems: See HPI for pertinent positives. All other 10 point review of systems are negative. Physical Exam Physical Exam: General: no acute distress and stated age Head: normocephalic, no masses, lesions, tenderness or abnormalities Eyes: conjunctiva are pink and non-injected, sclera clear Neck: supple, no adenopathy, no bruits, normal jugular venous pulse, no hepatojugular reflux Chest: normal shape and normal respiratory effort Lungs: clear to auscultation and percussion Cardiac Exam: - regular rate & rhythm, no murmurs gallops or rubs - normal S1, normal S2 Pulses: 2(+) throughout Abdomen: abdomen soft, non-tender, no abnormal masses and no hepatosplenomegaly Musculoskeletal: no gait disturbance, no joint inflammation, no deforming arthritis Extremities: no edema and no cyanosis Neuro: grossly normal exam Results & Data ([facility]) Vital Signs (Past 12 Hours) Vital Signs Temp Pulse Pulse Resp BP Pulse Ox 03/09/21 11:33 36.9 C 59 L 18 121/69 92 03/09/21 08:00 72 03/09/21 07:00 36.4 C L 50 L 20 131/66 92 03/09/21 03:53 36.8 C 73 20 124/68 94 Laboratory Results Laboratory Results - last 24 hr 03/08/21 03/08/21 03/08/21 14:21 16:18 20:10 POC Glucose 284 H 283 H 364 H* 03/08/21 03/08/21 03/09/21 20:11 23:58 03:37 POC Glucose 359 H* 338 H* 199 H 03/09/21 03/09/21 03/09/21 06:01 07:47 11:31 POC Glucose 158 H 178 H 265 H Medications Administered Current Inpatient Medications Acetaminophen (Acetaminophen 325 Mg Tab) 650 mg PO Q4H PRN PRN Reason: Pain or Fever Stop: 04/04/21 19:58 Last Admin: 03/09/21 08:18 Dose: 650 mg Documented by: Allopurinol (Allopurinol 300 Mg Tab) 300 mg PO HS ANGELINE Stop: 04/04/21 20:59 Last Admin: 03/08/21 21:12 Dose: 300 mg Documented by: Atorvastatin Calcium (Atorvastatin 40 Mg Tab) 40 mg PO HS ANGELINE Stop: 04/04/21 20:59 Last Admin: 03/08/21 21:12 Dose: 40 mg Documented by: Dextrose (Dextrose 50% 50 Ml Syringe) 25 - 50 ml IV UD PRN; Protocol PRN Reason: Hypoglycemia Protocol Stop: 04/04/21 19:58 Digoxin (Digoxin 0.125 Mg Tab) 0.125 mg PO DAILY@1999 ANGELINE Stop: 04/04/21 19:59 Last Admin: 03/08/21 21:12 Dose: 0.125 mg Documented by: Diltiazem HCl (Diltiazem Hcl 240 Mg Capcr) 240 mg PO HS ANGELINE Stop: 04/05/21 20:59 Last Admin: 03/08/21 21:11 Dose: 240 mg Documented by: Doxycycline Hyclate (Doxycycline Hyclate 100 Mg Cap) 100 mg PO BID@1100,2100 ANGELINE Stop: 03/14/21 10:59 Last Admin: 03/09/21 11:49 Dose: 100 mg Documented by: Furosemide (Furosemide 20 Mg Tab) 20 mg PO QAM [facility] Stop: 04/06/21 08:59 Last Admin: 03/09/21 08:06 Dose: 20 mg Documented by: Gabapentin (Gabapentin 300 Mg Cap) 300 mg PO [facility] Stop: 04/04/21 20:59 Last Admin: 03/08/21 21:12 Dose: 300 mg Documented by: Glucagon (Glucagon For Inj 1 Mg Vial) 1 mg SQ UD PRN; Protocol PRN Reason: Hypoglycemia Protocol Stop: 04/04/21 19:58 Glucose (Glucose 10 Tabs/Tube) 4 - 8 tabs PO UD PRN; Protocol PRN Reason: Hypoglycemia Protocol Stop: 04/04/21 19:58 Glucose (Glucose 40% Gel 15 Gm Tube) 15 - 30 gm PO UD PRN; Protocol PRN Reason: Hypoglycemia Protocol Stop: 04/04/21 19:58 Insulin Aspart (Insulin Aspart 100 Units/Ml 3 Ml Pen) 0 units SC [facility] ANGELINE Stop: 04/04/21 20:59 Last Admin: 03/09/21 11:49 Dose: 19 units Documented by: Insulin Glargine (Insulin Glargine Solostar 100 Units/Ml 3 Ml Pen) 30 units SC [facility] Stop: 04/06/21 20:59 Last Admin: 03/09/21 08:08 Dose: 30 units Documented by: Levothyroxine Sodium (Levothyroxine Sodium 75 Mcg Tablet) [facility] Stop: 04/05/21 06:29 Last Admin: 03/09/21 05:45 Dose: 75 mcg Documented by: Losartan Potassium (Losartan Potassium 50 Mg Tab) 50 mg PO [facility] Stop: 04/04/21 20:59 Last Admin: 03/08/21 21:12 Dose: 50 mg Documented by: Magnesium Oxide (Magnesium Oxide 400 Mg Tab) 400 mg PO DAILY [facility] Stop: 04/05/21 08:59 Last Admin: 03/09/21 08:07 Dose: 400 mg Documented by: Metoprolol Succinate (Metoprolol Succ 50mg Ext Rel Tab) 100 mg PO QPM ANGELINE Stop: 04/05/21 20:59 Last Admin: 03/08/21 21:12 Dose: 100 mg Documented by: Metoprolol Succinate (Metoprolol Succ 50mg Ext Rel Tab) 200 mg PO QAM ANGELINE Stop: 04/05/21 08:59 Last Admin: 03/09/21 08:06 Dose: 200 mg Documented by: Miscellaneous (Carbohydrates For Hypoglycemia ) 15 - 30 gm PO UD PRN PRN Reason: Hypoglycemia Protocol Stop: 04/04/21 19:58 Miscellaneous Information (Pharmacy Glycemic Mgmt Consult) 1 ea N/A UD PRN; Protocol PRN Reason: Consult Stop: 04/04/21 19:58 Spironolactone (Spironolactone 12.5 Mg Tab) 12.5 mg PO DAILY ANGELINE Stop: 04/05/21 08:59 Last Admin: 03/09/21 08:06 Dose: 12.5 mg Documented by: Vitamin D (Cholecalciferol 1,000 Units 25 Mcg Tab) 1,000 units PO DAILY ANGELINE Stop: 04/05/21 08:59 Last Admin: 03/09/21 08:06 Dose: 1,000 units Documented by:
--- NOTE | 2021-03-09 13:54 | Pharmacy Report ---
Pharmacy Glycemic Short Note 2 - Date of Service March 09, 2021 - Glycemic Short BSG Results (Last 24 hours): 03/08/21 03/08/21 03/08/21 14:21 16:18 20:10 POC Glucose 284 H 283 H 364 H* 03/08/21 03/08/21 03/09/21 20:11 23:58 03:37 POC Glucose 359 H* 338 H* 199 H 03/09/21 03/09/21 03/09/21 06:01 07:47 11:31 POC Glucose 158 H 178 H 265 H OUTPATIENT ANTIDIABETIC REGIMEN: * Lantus 50 units QAM * Humalog 01/17/18 + correction * A1c 10.3% (03/06/21) ASSESSMENT: 03/09 * BSGs poorly controlled yesterday, unclear reason for sustained hyperglycemia (no obvious stressors besides scalp infection) * Will increase basal insulin and tighten Novolog parameters today 03/08 * BSGs yesterday of 181, 224, 168, 208, and 170 mg/dL * Received 68 units of insulin (45 units of basal and 23 units of prandial/correctional bolus) * Fasting BSG of 174 mg/dL this morning - will plan on increasing basal insulin today * In light of persistent elevation in BSGs throughout the day yesterday, will tighten Novolog parameters * Elevated BSG at lunchtime (326 mg/dL) - will tighten Novolog for now and hold off on IV insulin bolus in light of prior hypoglycemia 03/06 * Patient with subarachnoid hemorrhage, hypoglycemic on admission * Lantus dose reduced to 15 units this morning, will set sliding scale for PM up to weight based stress of 3 (~40% reduction from home dose) * Lunch BSG 159 mg/dL will continue current novolog parameters PLAN FOR INPATIENT GLYCEMIC CONTROL: * Hold outpatient oral diabetes medications * Basal insulin - increase * Lantus 30 units SC this morning * Lantus 25-30 units SC HS (see EHR for details) * Bolus insulin - tighten * NovoLog per scale ACHS or Q6hrs while NPO * Goal Range: Low 110 mg/dL - High 140 mg/dL * Correction Factor: 20 mg/dL/unit * Nutritional / Prandial insulin per carb ratio of 1 unit per 5 grams CHO consumed * 00,04 checks with same parameters PLAN FOR DISCHARGE: * HbA1c is significantly elevated at 10.3%, goal of less than 8% is likely reasonable for this patient * Patient reportedly regularly forgets to take lunch/dinner Humalog * Will follow inpatient insulin needs to see if adjustment to Humalog is warranted at time of discharge * Current outpatient insulin doses seem reasonable based on current inpatient requirements, defer to MTM clinic for further dose changes * Patient presented following syncopal episode/hypoglycemia - very important that patient can identify signs/symptoms of hypoglycemia and that she has glucose tablets available for treatment. Reinforce importance of self- monitoring of BSG, ideally ACHS. Of note, clinical document improvement educator did meet with patient and education was provided.
[2021-03-09] MEDS ORDERED: FUROSEMIDE 20 MG TAB PO ONE (18:56)
--- NOTE | 2021-03-09 19:54 | Hospitalist Progress Note ---
Date of Service March 09, 2021 delayed entry date of service noted above Assessment & Plan (1) Syncope: (2) Hypoglycemia: Plan: per Dr. Sebastian's notes with addendum including Diagnoses below: Insulin-dependent DM II Patient is 81-year-old female with PMH tachybrady syndrome, sinus node dysfunction s/p dual-chamber pacemaker, s/p generator change on 12/13/2020, h/o permanent atrial fibrillation s/p multiple cardioversions and ablation not on anticoagulation secondary to fall history and history of intracranial hemorrhage in 2009 with supratherapeutic INR, residual left-sided weakness, ambulates with walker, insulin-dependent DM II, HTN, HLD, chronic combined CHF, pulmonary hypertension, H/O IVC filter, chronic iron deficiency, gout, hypothyroidism presented to ER with complaint of syncope today and was found to have BSG of 38 and was given 250 mL D10 with repeat BSG of 178. Patient had 50 units Lantus and 10 units Humalog this morning and did eat breakfast. Missed dinner last night. Patient takes 50 units Lantus in the morning. She has Humalog to use 10 units with breakfast, 5 units with lunch and 18 units with dinner plus has correction sliding scale however patient only uses 10 units Humalog at breakfast does not take further throughout the day. Syncope Likely due to hypoglycemia DD: Recent brain bleed, R/O arrhythmia, Orthostatic Hypotension monitor for arrhythmias Pacemaker interrogation A1c: 13 and 11/16/2020 Hold home insulin, NovoLog correction insulin for now Monitor BSG's, and adjust insulin as needed Glycemic pharmacy consult Echo orthostatics Fall precautions PT OT HbA1C: 10.3 today Monitor for hypoglycemia Need close follow-up with PCP upon discharge 03/09 monitor BSG trend Insulin adjustments per Pharmacy Glycemic control service Klebsiella UTI per Urine Culture continue Ceftri Scalp wound infection- MSSA wound culture : MSSA continue Doxycycline Appreciate plastic surgery input Needs follow-up with wound clinic upon discharge (3) Subarachnoid hemorrhage: Plan: H/O syncopal episode and fall 6 weeks ago. Reported was standing in kitchen and next thing she knew she woke up lying on floor with blood coming from her head. Denies any dizziness, chest pain, shortness of breath, palpitations, visual changes prior to episode. Did not evaluate BSG at the time. Evaluated by PCP and noted to have left scalp laceration and scalp hematoma. Patient had denied CT head or ER evaluation at that time. Was reported patient was having headaches, had episode of visual loss for 2 days which has since resolved. Patient denies any falls since 6 weeks ago. --CT head: Suspected tiny acute versus subacute left parietal lobe subarachnoid hemorrhage adjacent to the left parietal scalp hematoma. Chronic left cerebellar infarct. Neurosurgery at [facility] was contacted-Dr. Robertson, who feels patient does not require transfer and recommends repeat CT head in 24 hours --Repeat CT head: . No significant change in the punctate hyperdense focus within the periphery of the left parietal lobe at the level the scalp injury. This could represent punctate subarachnoid hemorrhage/contusion or calcificat ion. Continued [address] follow-up recommended to ensure stability. There is also a new punctate focus of increased density within the right side of the cortes which could be artifactual. Attention at follow-up is also recommended to exclude the less likely possibility of a punctate focus of hemorrhage. These findings were called/faxed to the referring physician following dictation. --Cannot obtain MRI due to pacemaker Appreciate neurology input Continue neurochecks Avoid NSAIDs, anticoagulants Will Repeat CT head, CTA head and 24 hours as recommended by neurology 03/08 CT head: 1. 3 mm hyperdense focus within the cortical left parietal lobe adjacent to the acute left parietal scalp injury appears stable to slightly increased in size from the 03/06/2021 study suspicious for a small acute cortical contusion. Continued 48-hour head CT follow-up recommended. 2. Previously questioned punctate hyperdensity of the cortes is not identified and may have been artifactual. 3. CTA demonstrates no aneurysm, dissection, high-grade stenosis or arterial occlusion. 4. Chronic findings as above. 03/[address] head 03/10 (4) Acute on chronic combined systolic (congestive) and diastolic (congestive) heart failure: Plan: Patient satting in the 90s on room air. There is a reading of O2 sat 87% on room air however it is noted pulse ox with poor waveform CXR: Cardiomegaly and pulmonary vascular congestion --ECHO: Normal LV chamber size with mild concentric LVH. Moderately reduced LV systolic function and abnormal septal wall motion consistent with pacemaker activation, otherwise moderate global hypokinesis. Grade 2 diastolic dysfunction. Mild aortic regurgitation, moderate mitral regurgitation, moderate tricuspid regurgitation, severe left atrial enlargement. EF 40 to 45%. Patient missed Lasix and spironolactone dosing on day of admission Received Lasix 40 mg IV X 1 Monitor I's and O's, daily weights, low-sodium diet Patient prescribed spironolactone 25 mg daily however has been taking 12.5 mg daily. Continue home diuretics Monitor volume status Consider IV diuretics as needed 03/09 monitor volume status closely, crea Atrial fibrillation with RVR. Chronic atrial fibrillation Chronic atrial fibrillation status post cardioversions and ablation in past. Not on anticoagulation secondary to recurrent falls, history of rectus sheath hematoma, subarachnoid hemorrhage Normal digoxin level Continue Cardizem, metoprolol, digoxin Elevated troponin Troponin: 0.079 Likely demand ischemia ACS less likely Denies chest pain ECHO Showed no wall motion abnormality LE swelling History IVC Filter Bilateral leg swelling with right greater than left. --Venous Doppler:No sonographic evidence of deep venous thrombosis. --Arterial Doppler:No significant stenosis or occlusion within the right lower extremity arterial system. Continue diuretics Check LE X ray: negative H/O Tachybrady syndrome, sinus node dysfunction S/P Pacemaker. Generator change on 12/13/2020 Pacemaker interrogation: will discuss with Cardiology Hypokalemia Replace and Monitor BMP H/O frequent falls Patient uses walker at home PT/OT eval HTN Continue losartan, Cardizem, metoprolol succinate Monitor HLD Continue atorvastatin Hypothyroidism Continue levothyroxine DVT Prophylaxis SCDs Re: SAH Code Status Full code Disposition PT OT prior to discharge patient would like to be discharged home when medically stable plan of care discussed with patient in detail and at length all questions answered she is understanding, agreeable, comfortable with the plan of care Admission and Anticipated Discharge Date Admission Date: March 05, 2021 Subjective ff up for syncope, etc seen resting in bed, comfortable not in distress states she feels ok overall no syncope/presyncope no chest pain, dyspnea, palpitations, dizziness no abdominal pain, problems with urination no other symptoms Review of Systems Review of Systems: all noted and negative except for above Physical Exam Physical Exam: General- oriented x 3, not in distress, speaks in sentences with no effort or accessory muscle use Eyes- anicteric Neck- no JVD Lungs- mild rales at the bases no wheezing Heart- normal rate, regular rhythm; no murmurs Abdomen- normal bowel sounds, nondistended, soft, nontender Extremities- trace lower ext edema, no calf tenderness Neuro- alert, oriented x 3; no gross focal neurologic deficits Skin- warm & dry Results & Data Results & Data ([facility]) Vital Signs (Past 12 Hours) Vital Signs Temp Pulse Pulse Resp BP Pulse Ox 03/09/21 19:50 36.8 C 60 18 115/65 94 03/09/21 15:46 62 03/09/21 15:06 36.8 C 59 L 20 122/66 95 03/09/21 11:33 36.9 C 59 L 18 121/69 92 03/09/21 08:00 72 all noted and reviewed including below
[2021-03-09] MEDS: GABAPENTIN 300 MG CAP PO SCH (20:41)
[2021-03-09] MEDS: allopurinoL 300 MG TAB PO SCH (20:41)
[2021-03-09] MEDS: ATORVASTATIN 40 MG TAB PO SCH (20:41)
[2021-03-09] MEDS: DIGOXIN 0.125 MG TAB PO SCH (20:41)
[2021-03-09] MEDS: dilTIAZem HCL 240 MG CAPCR PO SCH (20:42)
[2021-03-09] MEDS: LOSARTAN POTASSIUM 50 MG TAB PO SCH (20:42)
[2021-03-10] MEDS ORDERED: INSULIN ASPART 100 UNITS/ML 3 ML PEN SC SCH
[2021-03-10] MEDS: ACETAMINOPHEN 325 MG TAB PO PRN ×2 (02:45→21:13)
[2021-03-10] MEDS: LEVOTHYROXINE SODIUM 75 MCG TABLET PO SCH (05:57)
[2021-03-10] MEDS: METOPROLOL SUCC 50MG EXT REL TAB PO SCH ×2 (08:36→19:33)
[2021-03-10] MEDS: SPIRONOLACTONE 12.5 MG TAB PO SCH (08:36)
[2021-03-10] MEDS: MAGNESIUM OXIDE 400 MG TAB PO SCH (08:37)
[2021-03-10] MEDS: FUROSEMIDE 20 MG TAB PO SCH (08:38)
[2021-03-10] MEDS: CHOLECALCIFEROL 1,000 UNITS 25 MCG TAB PO SCH (08:38)
[2021-03-10] MEDS: INSULIN GLARGINE SOLOSTAR 100 UNITS/ML 3 ML PEN SC SCH ×2 (08:40→21:05)
[2021-03-10] MEDS: INSULIN ASPART 100 UNITS/ML 3 ML PEN SC SCH ×4 (08:41→21:05)
--- NOTE | 2021-03-10 09:10 | XRay Report ---
XR chest 1V portable HISTORY: Congestive heart failure. Shortness of breath. COMPARISON: Chest 03/05/2021. FINDINGS: The cardiac silhouette remains severely enlarged. There is mild central pulmonary vascular congestion without overt edema.. No new focal lung consolidations to suggest pneumonia. No pleural ef fusions. No pneumothorax. There is a left-sided pacemaker. A hiatal hernia is again noted. IMPRESSION: No change in the cardiomegaly and mild central pulmonary vascular congestion without overt edema. ACT 112: Negative or not required by law. Electronically signed by: Godwin Ansari M.D. 03/10/2021 9:09 AM
[2021-03-10 10:59] LABS: BUN Creatinine Ratio 33.2 (10-20); Calcium 9.2 mg/dl (8.5-10.1); Creatinine Clr Calc Pharmacy 25.2 ml/min; Est GFR (African American) 40.3 ml/min; Est GFR (Non-African American) 34.7 ml/min
--- NOTE | 2021-03-10 11:13 | Cardiology Progress Note ---
Date of Service March 10, 2021 Assessment & Plan (1) Scalp wound: (2) Hypoglycemia: (3) Diabetes mellitus, type II: (4) Pacemaker: (5) Systolic CHF, chronic: (6) Atrial fibrillation: Plan: 81 year old female with chronic atrial fibrillation, multiple contraindications to anticoagulation, Tachy-Mick Syndrome status post pacemaker implantation (generator exchange on December 13, 2020), prior September 2014 partial/modified AVJ ablation. Echocardiography this admission noted for mild decline in LV and RV systolic function compared to prior. Options of management discussed. Recommend discontinuation of diltiazem given mild reduction in LV systolic function as well as fluid retention, concurrently increasing metoprolol to 200 mg twice a day. Continue digoxin. If heart rates become uncontrolled with discontinuation of diltiazem may need to consider resumption versus reconsideration for AV junction ablation. Recommend reassessment of LV systolic function via repeat resting echocardiography in 3 months. Note: patient with signs and symptoms suggestive of sleep apnea as well as hypoxemia, declines evaluation and treatment in this regard. Admission and Anticipated Discharge Date Admission Date: March 05, 2021 Supervising Physician Co-Signing Physician Notes Discussed the case with Mr. Trevino and reviewed the medical record. I have seen the patient and examined her today. I agree with plan as outlined above. Subjective Mrs. Linton is a very pleasant 81 year old female who was admitted to [facility] on March 05, 2021 after experiencing a syncopal episode at [facility]. Initial blood glucose was 38 mg/deciliter. Cardiology consultation was requested on March 09, [address] Lawson due to "progression of CHF." Resting echocardiography on March 06, 2021 revealed mild decline in LV and RV systolic function. Ejection fraction 40 to 45%, previously 55% in August 2020. March 06, 2021 TTE Interpretation Summary ([facility], Dr. Aragon): Compared to previous study of August 31, 2020, LV and RV systolic function have declined. Normal LV chamber size. Mild concentric LVH. Moderately reduced LV systolic function, with abnormal septal wall motion consistent with pacemaker activation, otherwise, moderate global hypokinesis. Grade 2 diastolic dysfunction. Normal RV cavity size with reduced function by TAPSE. Mild aortic valve sclerosis, without significant aortic valve stenosis. Mild aortic regurgitation. Moderate mitral regurgitation. Moderate tricuspid regurgitation. Severe left atrial enlargement. Pulmonary artery systolic pressure 39 mmHg. Ejection fraction 40 to 45%.' Pacemaker interrogation on March 06, 2021 demonstrated appropriate function. Remaining longevity: 14.6 years. Mode: VVI, lower rate 60 bpm. Ventricular paced 34% of the time. Telemetry: Atrial fibrillation in the 60s and 70s over the last 24 hours. Review of Systems Review of Systems: Review of Systems: See HPI for pertinent positives. All other 10 point review of systems are negative. Physical Exam Physical Exam: General: A&Ox3. NAD. HENT: Normocephalic. Atraumatic. Eyes: PER. Conjunctiva pink, sclera clear. Neck: No JVD. Heart: Irregularly irregular around 70 bpm. Systolic murmur. No diastolic murmur. No rub. Lungs: Clear to auscultation. Abdomen: +BS. Soft. Nontender. No masses or organomegaly. Extremities: No clubbing, cyanosis, or edema. Pulses: radial=2/4, posterior tibial=1/4. Results & Data ([facility]) Vital Signs (Past 12 Hours) Vital Signs Temp Pulse Pulse Resp BP BP Pulse Ox 03/10/21 08:00 71 03/10/21 07:56 37.0 C 57 L 18 132/71 94 03/10/21 03:00 36.9 C 61 18 114/65 91 03/09/21 23:33 36.9 C 68 17 135/73 95 Laboratory Results Laboratory Results - last 24 hr 03/09/21 03/09/21 03/09/21 11:31 16:15 20:39 Sodium Potassium Chloride Carbon Dioxide Anion Gap BUN Creatinine Est Cr Clr Drug Dosing Est GFR ( Amer) Est GFR (Non-Af Amer) BUN/Creatinine Ratio Glucose POC Glucose 265 H 71 118 H Calcium 03/10/21 03/10/21 03/10/21 04:15 07:27 10:17 Sodium 137 Potassium 4.0 Chloride 105 Carbon Dioxide 27 Anion Gap 5.0 BUN 48 H Creatinine 1.43 H Est Cr Clr Drug Dosing 25.2 Est GFR ( Amer) 40.3 Est GFR (Non-Af Amer) 34.7 BUN/Creatinine Ratio 33.2 H Glucose 186 H POC Glucose 169 H 153 H Calcium 9.2
[2021-03-10] MEDS: DOXYCYCLINE HYCLATE 100 MG CAP PO SCH ×2 (12:09→19:32)
[2021-03-10] MEDS: DIGOXIN 0.125 MG TAB PO SCH (19:31)
[2021-03-10] MEDS: allopurinoL 300 MG TAB PO SCH (19:31)
[2021-03-10] MEDS: GABAPENTIN 300 MG CAP PO SCH (19:32)
[2021-03-10] MEDS: ATORVASTATIN 40 MG TAB PO SCH (19:32)
[2021-03-10] MEDS: LOSARTAN POTASSIUM 50 MG TAB PO SCH (19:32)
--- NOTE | 2021-03-10 19:53 | Hospitalist Progress Note ---
Date of Service March 10, 2021 Assessment & Plan (1) Syncope: (2) Hypoglycemia: Plan: per Dr. Sebastian's notes with addendum including Diagnoses below: Insulin-dependent DM II Patient is 81-year-old female with PMH tachybrady syndrome, sinus node dysfunction s/p dual-chamber pacemaker, s/p generator change on 12/13/2020, h/o permanent atrial fibrillation s/p multiple cardioversions and ablation not on anticoagulation secondary to fall history and history of intracranial hemorrhage in 2009 with supratherapeutic INR, residual left-sided weakness, ambulates with walker, insulin-dependent DM II, HTN, HLD, chronic combined CHF, pulmonary hypertension, H/O IVC filter, chronic iron deficiency, gout, hypothyroidism presented to ER with complaint of syncope today and was found to have BSG of 38 and was given 250 mL D10 with repeat BSG of 178. Patient had 50 units Lantus and 10 units Humalog this morning and did eat breakfast. Missed dinner last night. Patient takes 50 units Lantus in the morning. She has Humalog to use 10 units with breakfast, 5 units with lunch and 18 units with dinner plus has correction sliding scale however patient only uses 10 units Humalog at breakfast does not take further throughout the day. Syncope Likely due to hypoglycemia DD: Recent brain bleed, R/O arrhythmia, Orthostatic Hypotension monitor for arrhythmias Pacemaker interrogation A1c: 13 and 11/16/2020 Hold home insulin, NovoLog correction insulin for now Monitor BSG's, and adjust insulin as needed Glycemic pharmacy consult Echo orthostatics Fall precautions PT OT HbA1C: 10.3 today Monitor for hypoglycemia Need close follow-up with PCP upon discharge 03/09 BSG 203 Insulin adjustments per Pharmacy Glycemic control service Klebsiella UTI per Urine Culture continue Ceftri Day 4 Scalp wound infection- MSSA wound culture : MSSA continue Doxycycline Appreciate plastic surgery input Needs follow-up with wound clinic upon discharge (3) Subarachnoid hemorrhage: Plan: H/O syncopal episode and fall 6 weeks ago. Reported was standing in kitchen and next thing she knew she woke up lying on floor with blood coming from her head. Denies any dizziness, chest pain, shortness of breath, palpitations, visual changes prior to episode. Did not evaluate BSG at the time. Evaluated by PCP and noted to have left scalp laceration and scalp hematoma. Patient had denied CT head or ER evaluation at that time. Was reported patient was having headaches, had episode of visual loss for 2 days which has since resolved. Patient denies any falls since 6 weeks ago. --CT head: Suspected tiny acute versus subacute left parietal lobe subarachnoid hemorrhage adjacent to the left parietal scalp hematoma. Chronic left cerebellar infarct. Neurosurgery at [facility] was contacted-Dr. Robertson, who feels patient does not require transfer and recommends repeat CT head in 24 hours --Repeat CT head: . No significant change in the punctate hyperdense focus within the periphery of the left parietal lobe at the level the scalp injury. This could represent punctate subarachnoid hemorrhage/contusion or calcification. Continued [address] follow-up recommended to ensure stability. There is also a new punctate focus of increased density within the right side of the cortes which could be artifactual. Attention at follow-up is also recommended to exclude the less likely possibility of a punctate focus of hemorrhage. These findings were called/faxed to the referring physician following dictation. --Cannot obtain MRI due to pacemaker Appreciate neurology input Continue neurochecks Avoid NSAIDs, anticoagulants Will Repeat CT head, CTA head and 24 hours as recommended by neurology 03/10 CT head: 1. 3 mm hyperdense focus within the cortical left parietal lobe adjacent to the acute left parietal scalp injury appears stable to slightly increased in size from the 03/06/2021 study suspicious for a small acute cortical contusion. Continued 48-hour head CT follow-up recommended. 2. Previously questioned punctate hyperdensity of the cortes is not identified and may have been artifactual. 3. CTA demonstrates no aneurysm, dissection, high-grade stenosis or arterial occlusion. 4. Chronic findings as above. no neuro symptoms repeat CT head tomorrow (4) Acute on chronic combined systolic (congestive) and diastolic (congestive) heart failure: Plan: Patient satting in the 90s on room air. There is a reading of O2 sat 87% on room air however it is noted pulse ox with poor waveform CXR: Cardiomegaly and pulmonary vascular congestion --ECHO: Normal LV chamber size with mild concentric LVH. Moderately reduced LV systolic function and abnormal septal wall motion consistent with pacemaker activation, otherwise moderate global hypokinesis. Grade 2 diastolic dysfunction. Mild aortic regurgitation, moderate mitral regurgitation, moderate tricuspid regurgitation, severe left atrial enlargement. EF 40 to 45%. Patient missed Lasix and spironolactone dosing on day of admission Received Lasix 40 mg IV X 1 Monitor I's and O's, daily weights, low-sodium diet Patient prescribed spironolactone 25 mg daily however has been taking 12.5 mg daily. Continue home diuretics Monitor volume status Consider IV diuretics as needed 03/10 Diltiazem discontinued, Metoprolol XL 200mg BID started Atrial fibrillation with RVR. Chronic atrial fibrillation Chronic atrial fibrillation status post cardioversions and ablation in past. Not on anticoagulation secondary to recurrent falls, history of rectus sheath hematoma, subarachnoid hemorrhage Normal digoxin level Continue metoprolol, digoxin Elevated troponin Troponin: 0.079 Likely demand ischemia ACS less likely Denies chest pain ECHO Showed no wall motion abnormality LE swelling History IVC Filter Bilateral leg swelling with right greater than left. --Venous Doppler:No sonographic evidence of deep venous thrombosis. --Arterial Doppler:No significant stenosis or occlusion within the right lower extremity arterial system. Continue diuretics Check LE X ray: negative H/O Tachybrady syndrome, sinus node dysfunction S/P Pacemaker. Generator change on 12/13/2020 Pacemaker interrogation: will discuss with Cardiology Hypokalemia Replace and Monitor BMP H/O frequent falls Patient uses walker at home PT/OT eval HTN Continue losartan, Cardizem, metoprolol succinate Monitor HLD Continue atorvastatin Hypothyroidism Continue levothyroxine DVT Prophylaxis SCDs Re: SAH Code Status Full code Disposition PT OT prior to discharge patient would like to be discharged home when medically stable plan of care discussed with patient in detail and at length all questions answered she is understanding, agreeable, comfortable with the plan of care Admission and Anticipated Discharge Date Admission Date: March 05, 2021 Subjective ff up for syncope, etc seen resting in bed, comfortable states she feels ok overall no chest pain, dyspnea, palpitations, dizziness no presyncope/syncope no headache, new focal deficits no other symptoms Review of Systems Review of Systems: all noted and negative except for above Physical Exam Physical Exam: General- oriented x 3, not in distress, speaks in sentences with no effort or accessory muscle use Eyes- anicteric Neck- no JVD Lungs-mild rales at the bases Heart- normal rate, regular rhythm; no murmurs Abdomen- normal bowel sounds, nondistended, soft, nontender Extremities- no pretibial edema, no calf tenderness Neuro- alert, oriented x 3; no gross focal neurologic deficits Skin- warm & dry Results & Data Results & Data ([facility]) Vital Signs (Past 12 Hours) Vital Signs Temp Pulse Pulse Resp BP Pulse Ox 03/10/21 19:51 37.6 C H 60 16 122/69 94 03/10/21 19:31 62 03/10/21 15:44 37.3 C 57 L 16 123/63 91 03/10/21 11:47 37.0 C 61 18 125/53 L 93 03/10/21 08:00 71 03/10/21 07:56 37.0 C 57 L 18 132/71 94 all noted and reviewed including below
[2021-03-11] MEDS: LEVOTHYROXINE SODIUM 75 MCG TABLET PO SCH (06:12)
[2021-03-11] MEDS: CARBOHYDRATES FOR HYPOGLYCEMIA PO PRN ×2 (07:23→20:15)
[2021-03-11] MEDS: INSULIN ASPART 100 UNITS/ML 3 ML PEN SC SCH ×4 (08:03→21:20)
[2021-03-11] MEDS: INSULIN GLARGINE SOLOSTAR 100 UNITS/ML 3 ML PEN SC SCH (08:04)
[2021-03-11] MEDS: METOPROLOL SUCC 50MG EXT REL TAB PO SCH ×2 (08:08→21:14)
[2021-03-11] MEDS: SPIRONOLACTONE 12.5 MG TAB PO SCH (08:08)
[2021-03-11] MEDS: FUROSEMIDE 20 MG TAB PO SCH (08:08)
[2021-03-11] MEDS: CHOLECALCIFEROL 1,000 UNITS 25 MCG TAB PO SCH (08:09)
[2021-03-11] MEDS: MAGNESIUM OXIDE 400 MG TAB PO SCH (08:09)
--- NOTE | 2021-03-11 11:28 | Pharmacy Report ---
Pharmacy Glycemic Short Note 2 - Date of Service March 11, 2021 - Glycemic Short BSG Results (Last 24 hours): 03/10/21 03/10/21 03/10/21 11:19 16:20 20:25 POC Glucose 203 H 203 H 162 H 03/11/21 03/11/21 03/11/21 07:20 07:21 07:44 POC Glucose 53 L* 63 L* 92 OUTPATIENT ANTIDIABETIC REGIMEN: * Lantus 50 units QAM * Humalog 01/17/18 + correction * A1c 10.3% (03/06/21) ASSESSMENT: 03/11/21 * Patient's BSGs yesterday were [phone] mg/dL. * Fasting today is 53 mg/dL. * Patient received 93 units of insulin yesterday (60 units of basal and 33 units of bolus). * Due to hypoglycemia this morning, reduce basal insulin by 25% to 45 units daily. Extra caution due to fasting decrease by 100 points. * Continue Novolog. 03/09 * BSGs poorly controlled yesterday, unclear reason for sustained hyperglycemia (no obvious stressors besides scalp infection) * Will increase basal insulin and tighten Novolog parameters today 03/08 * BSGs yesterday of 181, 224, 168, 208, and 170 mg/dL * Received 68 units of insulin (45 units of basal and 23 units of prandial/correctional bolus) * Fasting BSG of 174 mg/dL this morning - will plan on increasing basal insulin today * In light of persistent elevation in BSGs throughout the day yesterday, will tighten Novolog parameters * Elevated BSG at lunchtime (326 mg/dL) - will tighten Novolog for now and hold off on IV insulin bolus in light of prior hypoglycemia 03/06 * Patient with subarachnoid hemorrhage, hypoglycemic on admission * Lantus dose reduced to 15 units this morning, will set sliding scale for PM up to weight based stress of 3 (~40% reduction from home dose) * Lunch BSG 159 mg/dL will continue current novolog parameters PLAN FOR INPATIENT GLYCEMIC CONTROL: * Hold outpatient oral diabetes medications * Basal insulin - decrease * Lantus 30 units SC this morning * Lantus 15 units SC HS * Bolus insulin * NovoLog per scale ACHS or Q6hrs while NPO * Goal Range: Low 110 mg/dL - High 140 mg/dL * Correction Factor: 20 mg/dL/unit * Nutritional / Prandial insulin per carb ratio of 1 unit per 5 grams CHO consumed for breakfast and 1 unit per 6 grams CHO consumed for the remainder of the day PLAN FOR DISCHARGE: * HbA1c is significantly elevated at 10.3%, goal of less than 8% is likely reasonable for this patient * Patient reportedly regularly forgets to take lunch/dinner Humalog * Will follow inpatient insulin needs to see if adjustment to Humalog is warranted at time of discharge * Current outpatient insulin doses seem reasonable based on current inpatient requirements, defer to MTM clinic for further dose changes * Patient presented following syncopal episode/hypoglycemia - very important that patient can identify signs/symptoms of hypoglycemia and that she has glucose tablets available for treatment. Reinforce importance of self- monitoring of BSG, ideally ACHS. Of note, import export agent did meet with patient and education was provided.
[2021-03-11] MEDS: DOXYCYCLINE HYCLATE 100 MG CAP PO SCH ×2 (12:18→21:15)
--- NOTE | 2021-03-11 12:58 | CT Scan Report ---
CT SCAN OF THE BRAIN WITHOUT IV CONTRAST CLINICAL HISTORY: Follow-up suspected tiny left parietal lobe hemorrhagic contusion. COMPARISON STUDY: Prior CT scans of the brain, most recently dated 03/08/2021. TECHNIQUE: Unenhanced axial CT scan of the brain is performed from the vertex to the skull base. A do se lowering technique was utilized adhering to the principles of ALARA. CT DOSE: 614.27 mGy.cm FINDINGS: Brain parenchyma: There are age-related involutional changes noting moderate to advanced subcortical and periventricular microangiopathic change. A 3 mm hyperdense focus in the left posterior parietal lobe on image #21 is unchanged. A punctate hyperdense focus is again seen in the right aspect of the cortes on image #11. Tiny foci Of hemorrhage is not excluded. No additional findings are concerning for acute hemorrhage. There is no mass effect or evidence of acute territorial ischemia by CT criteria. Mclain-white matter differentiation is preserved. No extra-axial fluid collection is seen. Mineralizati on is noted in the basal ganglia. Ventricles, sulci, cisterns: Prominent secondary to involutional change. Intracranial vasculature: There is atherosclerotic calcification of the cavernous carotid and vertebr al arteries. Calvarium: The skeletal structures are osteopenic. No depressed calvarial fracture is identified. Soft tissues: A left posterior parietal scalp contusion is again noted. Sinuses and mastoids: The paranasal sinuses are clear. The mastoid air cells are well pneumatized. Orbits: The bony orbits are grossly intact. There are bilateral ocular lens implants. IMPRESSION: 1. There is unchanged appearance of a 3 mm hyperdense focus in the left posterior parietal lobe nasir x and a punctate hyperdense focus in the right aspect of the cortes as compared to recent prior examina tions. Differential considerations include tiny foci of hemorrhage versus mineralization. Consider an additional precautionary follow-up examination in one week's time. 2. No new findings are concerning for acute hemorrhage. There is no mass effect or evidence of acute territorial ischemia by CT criteria. ACT 112: Negative or not required by law. Electronically signed by: Isauro Mercado M.D. 03/11/2021 12:56 PM
--- NOTE | 2021-03-11 13:59 | Cardiology Progress Note ---
Date of Service March 11, 2021 Assessment & Plan (1) Scalp wound: (2) Hypoglycemia: (3) Diabetes mellitus, type II: (4) Pacemaker: (5) Systolic CHF, chronic: (6) Atrial fibrillation: Plan: The patient is clinically stable. On telemetry she has a paced rhythm with the underlying rhythm remaining is atrial fibrillation. At this point I do not believe the patient requires to be on telemetry. She can be discharged per the hospitalist service. We will see her on an as-needed basis. Admission and Anticipated Discharge Date Admission Date: March 05, 2021 Subjective The patient is resting comfortably. No new complaints. Review of Systems Review of Systems: Review of Systems: See HPI for pertinent positives. All other 10 point review of systems are negative. Physical Exam Physical Exam: General: no acute distress and stated age Head: normocephalic, no masses, lesions, tenderness or abnormalities Eyes: conjunctiva are pink and non-injected, sclera clear Neck: supple, no adenopathy, no bruits, normal jugular venous pulse, no hepatojugular reflux Chest: normal shape and normal respiratory effort Lungs: clear to auscultation and percussion Cardiac Exam: - regular rate & rhythm, no murmurs gallops or rubs - normal S1, normal S2 Pulses: 2(+) throughout Abdomen: abdomen soft, non-tender, no abnormal masses and no hepatosplenomegaly Musculoskeletal: no gait disturbance, no joint inflammation, no deforming arthritis Extremities: no edema and no cyanosis Neuro: grossly normal exam Results & Data ([facility]) Vital Signs (Past 12 Hours) Vital Signs Temp Pulse Resp BP BP Pulse Ox 03/11/21 11:58 36.2 C L 68 20 121/77 97 03/11/21 07:55 36.6 C 61 22 112/69 94 03/11/21 04:49 36.5 C 67 16 125/69 94 Laboratory Results Laboratory Results - last 24 hr 03/10/21 03/10/21 03/11/21 16:20 20:25 07:20 POC Glucose 203 H 162 H 53 L* 03/11/21 03/11/21 03/11/21 07:21 07:44 11:30 POC Glucose 63 L* 92 176 H Medications Administered Current Inpatient Medications Acetaminophen (Acetaminophen 325 Mg Tab) 650 mg PO Q4H PRN PRN Reason: Pain or Fever Stop: 04/04/21 19:58 Last Admin: 03/10/21 21:13 Dose: 650 mg Documented by: Allopurinol (Allopurinol 300 Mg Tab) 300 mg PO HS [facility] Stop: 04/04/21 20:59 Last Admin: 03/10/21 19:31 Dose: 300 mg Documented by: Atorvastatin Calcium (Atorvastatin 40 Mg Tab) 40 mg PO HS [facility] Stop: 04/04/21 20:59 Last Admin: 03/10/21 19:32 Dose: 40 mg Documented by: Dextrose (Dextrose 50% 50 Ml Syringe) 25 - 50 ml IV UD PRN; Protocol PRN Reason: Hypoglycemia Protocol Stop: 04/04/21 19:58 Digoxin (Digoxin 0.125 Mg Tab) 0.125 mg PO DAILY@2000 [facility] Stop: 04/04/21 19:59 Last Admin: 03/10/21 19:31 Dose: 0.125 mg Documented by: Doxycycline Hyclate (Doxycycline Hyclate 100 Mg Cap) 100 mg PO BID@1100,2100 [facility] Stop: 03/14/21 10:59 Last Admin: 03/11/21 12:18 Dose: 100 mg Documented by: Furosemide (Furosemide 20 Mg Tab) [facility] [place] Stop: 04/06/21 08:59 Last Admin: 03/11/21 08:08 Dose: 20 mg Documented by: Gabapentin (Gabapentin 300 Mg Cap) 300 mg PO [facility] Stop: 04/04/21 20:59 Last Admin: 03/10/21 19:32 Dose: 300 mg Documented by: Glucagon (Glucagon For Inj 1 Mg Vial) 1 mg SQ UD PRN; Protocol PRN Reason: Hypoglycemia Protocol Stop: 04/04/21 19:58 Glucose (Glucose 10 Tabs/Tube) 4 - 8 tabs PO UD PRN; Protocol PRN Reason: Hypoglycemia Protocol Stop: 04/04/21 19:58 Glucose (Glucose 40% Gel 15 Gm Tube) 15 - 30 gm PO UD PRN; Protocol PRN Reason: Hypoglycemia Protocol Stop: 04/04/21 19:58 Insulin Aspart (Insulin Aspart 100 Units/Ml 3 Ml Pen) 0 units SC DAILY@0730 [facility] Stop: 04/04/21 20:59 Last Admin: 03/11/21 08:03 Dose: 7 units Documented by: Insulin Aspart (Insulin Aspart 100 Units/Ml 3 Ml Pen) 0 units SC DAILY@1130,1630,2100 [facility] Stop: 04/09/21 11:29 Last Admin: 03/11/21 11:50 Dose: 8 units Documented by: Insulin Glargine (Insulin Glargine Solostar 100 Units/Ml 3 Ml Pen) 30 units SC QAM [facility] Stop: 04/06/21 20:59 Last Admin: 03/11/21 08:04 Dose: 30 units Documented by: Insulin Glargine (Insulin Glargine Solostar 100 Units/Ml 3 Ml Pen) 15 units SC HS [facility] Stop: 04/10/21 20:59 Levothyroxine Sodium (Levothyroxine Sodium 75 Mcg Tablet) 75 mcg PO DAILYBB [facility] Stop: 04/05/21 06:29 Last Admin: 03/11/21 06:12 Dose: 75 mcg Documented by: Losartan Potassium (Losartan Potassium 50 Mg Tab) 50 mg PO HS [facility] Stop: 04/04/21 20:59 Last Admin: 03/10/21 19:32 Dose: 50 mg Documented by: Magnesium Oxide (Magnesium Oxide 400 Mg Tab) 400 mg PO DAILY [facility] Stop: 04/05/21 08:59 Last Admin: 03/11/21 08:09 Dose: 400 mg Documented by: Metoprolol Succinate (Metoprolol Succ 50mg Ext Rel Tab) 200 mg PO BID [facility] Stop: 04/09/21 20:59 Last Admin: 03/11/21 08:08 Dose: 200 mg Documented by: Miscellaneous (Carbohydrates For Hypoglycemia ) 15 - 30 gm PO UD PRN PRN Reason: Hypoglycemia Protocol Stop: 04/04/21 19:58 Last Admin: 03/11/21 07:23 Dose: 15 gm Documented by: Miscellaneous Information (Pharmacy Glycemic Mgmt Consult) 1 ea N/A UD PRN; Protocol PRN Reason: Consult Stop: 04/04/21 19:58 Spironolactone (Spironolactone 12.5 Mg Tab) 12.5 mg PO DAILY [facility] Stop: 04/05/21 08:59 Last Admin: 03/11/21 08:08 Dose: 12.5 mg Documented by: Vitamin D (Cholecalciferol 1,000 Units 25 Mcg Tab) 1,000 units PO DAILY [facility] Stop: 04/05/21 08:59 Last Admin: 03/11/21 08:09 Dose: 1,000 units Documented by:
[2021-03-11] MEDS: ACETAMINOPHEN 325 MG TAB PO PRN (15:38)
--- NOTE | 2021-03-11 17:56 | Hospitalist Progress Note ---
Date of Service March 11, 2021 Assessment & Plan (1) Syncope: (2) Hypoglycemia: Plan: per Dr. Sebastian's notes with addendum including Diagnoses below: Insulin-dependent DM II Patient is 81-year-old female with PMH tachybrady syndrome, sinus node dysfunction s/p dual-chamber pacemaker, s/p generator change on 12/13/2020, h/o permanent atrial fibrillation s/p multiple cardioversions and ablation not on anticoagulation secondary to fall history and history of intracranial hemorrhage in 2009 with supratherapeutic INR, residual left-sided weakness, ambulates with walker, insulin-dependent DM II, HTN, HLD, chronic combined CHF, pulmonary hypertension, H/O IVC filter, chronic iron deficiency, gout, hypothyroidism presented to ER with complaint of syncope today and was found to have BSG of 38 and was given 250 mL D10 with repeat BSG of 178. Patient had 50 units Lantus and 10 units Humalog this morning and did eat breakfast. Missed dinner last night. Patient takes 50 units Lantus in the morning. She has Humalog to use 10 units with breakfast, 5 units with lunch and 18 units with dinner plus has correction sliding scale however patient only uses 10 units Humalog at breakfast does not take further throughout the day. Syncope Likely due to hypoglycemia DD: Recent brain bleed, R/O arrhythmia, Orthostatic Hypotension monitor for arrhythmias Pacemaker interrogation A1c: 13 and 11/16/2020 Hold home insulin, NovoLog correction insulin for now Monitor BSG's, and adjust insulin as needed Glycemic pharmacy consult [facility] Fall precautions PT OT HbA1C: 10.3 today Monitor for hypoglycemia Need close follow-up with PCP upon discharge 03/11 stable overall no recurrence of syncope/presyncope Klebsiella UTI per Urine Culture continue Ceftri Scalp wound infection- MSSA wound culture : MSSA continue Doxycycline Appreciate plastic surgery input Needs follow-up with wound clinic upon discharge (3) Subarachnoid hemorrhage: Plan: H/O syncopal episode and fall 6 weeks ago. Reported was standing in kitchen and next thing she knew she woke up lying on floor with blood coming from her head. Denies any dizziness, chest pain, shortness of breath, palpitations, visual changes prior to episode. Did not evaluate BSG at the time. Evaluated by PCP and noted to have left scalp laceration and scalp hematoma. Patient had denied CT head or ER evaluation at that time. Was reported patient was having headaches, had episode of visual loss for 2 days which has since resolved. Patient denies any falls since 6 weeks ago. --CT head: Suspected tiny acute versus subacute left parietal lobe subarachnoid hemorrhage adjacent to the left parietal scalp hematoma. Chronic left cerebellar infarct. Neurosurgery at [facility] was contacted-Dr. Robertson, who feels patient does not require transfer and recommends repeat CT head in 24 hours --Repeat CT head: . No significant change in the punctate hyperdense focus within the periphery of the left parietal lobe at the level the scalp injury. This could represent punctate subarachnoid hemorrhage/contusion or calcification. Continued [address] follow-up recommended to ensure sta bility. There is also a new punctate focus of increased density within the right side of the cortes which could be artifactual. Attention at follow-up is also recommended to exclude the less likely possibility of a punctate focus of hemorrhage. These findings were called/faxed to the referring physician following dictation. --Cannot obtain MRI due to pacemaker Appreciate neurology input Continue neurochecks Avoid NSAIDs, anticoagulants Will Repeat CT head, CTA head and 24 hours as recommended by neurology 03/10 CT head: 1. 3 mm hyperdense focus within the cortical left parietal lobe adjacent to the acute left parietal scalp injury appears stable to slightly increased in size from the 03/06/2021 study suspicious for a small acute cortical contusion. Continued 48-hour head CT follow-up recommended. 2. Previously questioned punctate hyperdensity of the cortes is not identified and may have been artifactual. 3. CTA demonstrates no aneurysm, dissection, high-grade stenosis or arterial occlusion. 4. Chronic findings as above. 03/[address] head stable repeat CT in 1 week (4) Acute on chronic combined systolic (congestive) and diastolic (congestive) heart failure: Plan: Patient satting in the 90s on room air. There is a reading of O2 sat 87% on room air however it is noted pulse ox with poor waveform CXR: Cardiomegaly and pulmonary vascular congestion --ECHO: Normal LV chamber size with mild concentric LVH. Moderately reduced LV systolic function and abnormal septal wall motion consistent with pacemaker activation, otherwise moderate global hypokinesis. Grade 2 diastolic dysfunction. Mild aortic regurgitation, moderate mitral regurgitation, moderate tricuspid regurgitation, severe left atrial enlargement. EF 40 to 45%. Patient missed Lasix and spironolactone dosing on day of admission Received Lasix 40 mg IV X 1 Monitor I's and O's, daily weights, low-sodium diet Patient prescribed spironolactone 25 mg daily however has been taking 12.5 mg daily. Continue home diuretics Monitor volume status Consider IV diuretics as needed 03/11 Diltiazem discontinued, Metoprolol XL 200mg BID started tolerating so far Atrial fibrillation with RVR. Chronic atrial fibrillation Chronic atrial fibrillation status post cardioversions and ablation in past. Not on anticoagulation secondary to recurrent falls, history of rectus sheath hematoma, subarachnoid hemorrhage Normal digoxin level Continue metoprolol, digoxin Elevated troponin Troponin: 0.079 Likely demand ischemia ACS less likely Denies chest pain ECHO Showed no wall motion abnormality LE swelling History IVC Filter Bilateral leg swelling with right greater than left. --Venous Doppler:No sonographic evidence of deep venous thrombosis. --Arterial Doppler:No significant stenosis or occlusion within the right lower extremity arterial system. Continue diuretics Check LE X ray: negative H/O Tachybrady syndrome, sinus node dysfunction S/P Pacemaker. Generator change on 12/13/2020 Pacemaker interrogation: will discuss with Cardiology Hypokalemia Replace and Monitor BMP H/O frequent falls Patient uses walker at home PT/OT eval HTN Continue losartan, Cardizem, metoprolol succinate Monitor HLD Continue atorvastatin Hypothyroidism Continue levothyroxine DVT Prophylaxis SCDs Re: SAH Code Status Full code Disposition PT OT prior to discharge patient would like to be discharged home when medically stable plan of care discussed with patient in detail and at length all questions answered she is understanding, agreeable, comfortable with the plan of care Admission and Anticipated Discharge Date Admission Date: March 05, 2021 Subjective ff up for syncope, hypoglycemia etc seen resting in bed, comfortable having dinner states she feels tired today no presyncope/syncope, chest pain, dizziness, palpitations no headache no other neuro symptoms Review of Systems Review of Systems: all noted and negative except for above Physical Exam Physical Exam: General- oriented x 3, not in distress, speaks in sentences with no effort or accessory muscle use Eyes- anicteric Neck- no JVD Lungs- clear BS BL no rales/wheezing Heart- normal rate, regular rhythm; no murmurs Abdomen- normal bowel sounds, nondistended, soft, no tenderness Extremities- no pretibial edema, no calf tenderness Neuro- alert, oriented x 3; no gross focal neurologic deficits Skin- warm & dry Results & Data Results & Data ([facility]) Vital Signs (Past 12 Hours) Vital Signs Temp Pulse Resp BP Pulse Ox 03/11/21 16:02 37.1 C 63 18 136/75 95 03/11/21 11:58 36.2 C L 68 20 121/77 97 03/11/21 07:55 36.6 C 61 22 112/69 94 all noted and reviewed including below
[2021-03-11] MEDS ORDERED: FUROSEMIDE 20 MG TAB PO ONE (18:00)
[2021-03-11] MEDS ORDERED: INSULIN GLARGINE SOLOSTAR 100 UNITS/ML 3 ML PEN SC SCH ×2 (21:00)
[2021-03-11] MEDS: LOSARTAN POTASSIUM 50 MG TAB PO SCH (21:14)
[2021-03-11] MEDS: allopurinoL 300 MG TAB PO SCH (21:14)
[2021-03-11] MEDS: GABAPENTIN 300 MG CAP PO SCH (21:16)
[2021-03-11] MEDS: ATORVASTATIN 40 MG TAB PO SCH (21:16)
[2021-03-11] MEDS: DIGOXIN 0.125 MG TAB PO SCH (21:16)
[2021-03-12] MEDS: LEVOTHYROXINE SODIUM 75 MCG TABLET PO SCH (06:26)
[2021-03-12] MEDS: FUROSEMIDE 20 MG TAB PO SCH (07:57)
[2021-03-12] MEDS: CHOLECALCIFEROL 1,000 UNITS 25 MCG TAB PO SCH (07:57)
[2021-03-12] MEDS: SPIRONOLACTONE 12.5 MG TAB PO SCH (07:57)
[2021-03-12] MEDS: MAGNESIUM OXIDE 400 MG TAB PO SCH (07:57)
[2021-03-12] MEDS: METOPROLOL SUCC 50MG EXT REL TAB PO SCH (07:58)
[2021-03-12] MEDS: INSULIN GLARGINE SOLOSTAR 100 UNITS/ML 3 ML PEN SC SCH (08:00)
[2021-03-12] MEDS: INSULIN ASPART 100 UNITS/ML 3 ML PEN SC SCH ×2 (08:01→12:14)
[2021-03-12 08:50] LABS: Basophils # (auto) 0.02 K/uL (0-0.2); Basophils % (auto) 0.3 %; Eosinophils # (auto) 0.21 K/uL (0-0.5); Eosinophils % (auto) 3.1 %; Hematocrit (blood only) 35.3 % (37-47); Hemoglobin 11.1 g/dL (12.0-16.0); Immature Granulocytes # (auto) 0.01 K/uL (0.00-0.02); Immature Granulocytes % (auto) 0.1 %; Lymphocytes # (auto) 1.14 K/uL (1.2-3.4); Lymphocytes % (auto) 16.6 %; Mean Corpuscular Hemoglobin 32.1 pg (25-34); Mean Corpuscular Hgb Conc 31.4 g/dL (32-36); Mean Platelet Volume 10.6 fL (7.4-10.4); Monocytes # (auto) 0.68 K/uL (0.11-0.59); Monocytes % (auto) 9.9 %; Platelet Count 137 K/uL (130-400); RDW Coefficient of Variation 13.9 % (11.5-14.5); RDW Standard Deviation 52.6 fL (36.4-46.3); Red Blood Count 3.46 M/uL (4.2-5.4); White Blood Count 6.86 K/uL (4.8-10.8)
[2021-03-12] MEDS ORDERED: CEFDINIR 300 MG CAP PO SCH ×3 (09:00→21:00)
[2021-03-12 09:08] LABS: BUN Creatinine Ratio 43.9 (10-20); Calcium 9.3 mg/dl (8.5-10.1); Creatinine Clr Calc Pharmacy 34.7 ml/min; Est GFR (African American) 59.2 ml/min; Est GFR (Non-African American) 51.1 ml/min; Potassium 4.4 mmol/L (3.5-5.1)
[2021-03-12] MEDS: DOXYCYCLINE HYCLATE 100 MG CAP PO SCH (10:11)
[2021-03-12] MEDS: ACETAMINOPHEN 325 MG TAB PO PRN (11:42)
--- NOTE | 2021-03-12 13:37 | Pharmacy Report ---
Pharmacy Glycemic Short Note 2 - Date of Service March 12, 2021 - Glycemic Short BSG Results (Last 24 hours): 03/11/21 03/11/21 03/11/21 16:14 20:09 20:35 Glucose POC Glucose 88 62 L* 91 03/11/21 03/12/21 03/12/21 23:39 04:18 07:21 Glucose POC Glucose 182 H 92 150 H 03/12/21 03/12/21 08:36 11:16 Glucose 187 H POC Glucose 176 H OUTPATIENT ANTIDIABETIC REGIMEN: * Lantus 50 units QAM * Humalog 01/17/18 + correction * A1c 10.3% (03/06/21) ASSESSMENT: 03/12/21 * Patient's BSGs yesterday were 31-362-87-62 mg/dL. * Fasting today is 150 mg/dL. * Patient received 50 units of insulin yesterday (30 units of basal and 20 units of bolus). * As BSGs were lower yesterday evening, evening dose of Lantus held. okay to continue with Lantus 30 units today. Could consider titrating up tomorrow. * Continue Novolog. 03/11/21 * Patient's BSGs yesterday were 842-855-100-162 mg/dL. * Fasting today is 53 mg/dL. * Patient received 93 units of insulin yesterday (60 units of basal and 33 units of bolus). * Due to hypoglycemia this morning, reduce basal insulin by 25% to 45 units daily. Extra caution due to fasting decrease by 100 points. * Continue Novolog. 03/09 * BSGs poorly controlled yesterday, unclear reason for sustained hyperglycemia (no obvious stressors besides scalp infection) * Will increase basal insulin and tighten Novolog parameters today 03/08 * BSGs yesterday of 181, 224, 168, 208, and 170 mg/dL * Received 68 units of insulin (45 units of basal and 23 units of prandial/correctional bolus) * Fasting BSG of 174 mg/dL this morning - will plan on increasing basal insulin today * In light of persistent elevation in BSGs throughout the day yesterday, will tighten Novolog parameters * Elevated BSG at lunchtime (326 mg/dL) - will tighten Novolog for now and hold off on IV insulin bolus in light of prior hypoglycemia 03/06 * Patient with subarachnoid hemorrhage, hypoglycemic on admission * Lantus dose reduced to 15 units this morning, will set sliding scale for PM up to weight based stress of 3 (~40% reduction from home dose) * Lunch BSG 159 mg/dL will continue current novolog parameters PLAN FOR INPATIENT GLYCEMIC CONTROL: * Hold outpatient oral diabetes medications * Basal insulin - decrease * Lantus 30 units SC this morning * Lantus 15 units SC HS * Bolus insulin * NovoLog per scale ACHS or Q6hrs while NPO * Goal Range: Low 110 mg/dL - High 140 mg/dL * Correction Factor: 20 mg/dL/unit * Nutritional / Prandial insulin per carb ratio of 1 unit per 5 grams CHO consumed for breakfast and 1 unit per 6 grams CHO consumed for the remainder of the day PLAN FOR DISCHARGE: * HbA1c is significantly elevated at 10.3%, goal of less than 8% is likely reasonable for this patient * Patient reportedly regularly forgets to take lunch/dinner Humalog * Recommend Humalog 6 units with breakfast and lunch; 8 units with dinner. * Current outpatient insulin doses seem reasonable based on current inpatient requirements, defer to MTM clinic for further dose changes * Patient presented following syncopal episode/hypoglycemia - very important that patient can identify signs/symptoms of hypoglycemia and that she has glucose tablets available for treatment. Reinforce importance of self- monitoring of BSG, ideally ACHS. Of note, childbirth educator did meet with patient and education was provided.
--- NOTE | 2021-03-12 13:57 | Hospitalist Progress Note ---
Date of Service March 12, 2021 Assessment & Plan (1) Syncope: (2) Hypoglycemia: Plan: per Dr. Sebastian's notes with addendum including Diagnoses below: Insulin-dependent DM II Patient is 81-year-old female with PMH tachybrady syndrome, sinus node dysfunction s/p dual-chamber pacemaker, s/p generator change on 12/13/2020, h/o permanent atrial fibrillation s/p multiple cardioversions and ablation not on anticoagulation secondary to fall history and history of intracranial hemorrhage in 2009 with supratherapeutic INR, residual left-sided weakness, ambulates with walker, insulin-dependent DM II, HTN, HLD, chronic combined CHF, pulmonary hypertension, H/O IVC filter, chronic iron deficiency, gout, hypothyroidism presented to ER with complaint of syncope today and was found to have BSG of 38 and was given 250 mL D10 with repeat BSG of 178. Patient had 50 units Lantus and 10 units Humalog this morning and did eat breakfast. Missed dinner last night. Patient takes 50 units Lantus in the morning. She has Humalog to use 10 units with breakfast, 5 units with lunch and 18 units with dinner plus has correction sliding scale however patient only uses 10 units Humalog at breakfast does not take further throughout the day. Syncope Likely due to hypoglycemia DD: Recent brain bleed, R/O arrhythmia, Orthostatic Hypotension monitor for arrhythmias Pacemaker interrogation A1c: 13 and 11/16/2020 Hold home insulin, NovoLog correction insulin for now Monitor BSG's, and adjust insulin as needed Glycemic pharmacy consult [facility] Fall precautions PT OT HbA1C: 10.3 today Monitor for hypoglycemia Need close follow-up with PCP upon discharge 03/12/2021 stable overall no recurrence of syncope/presyncope Klebsiella UTI per Urine Culture Given Ceftri Continue cefdinir x3 more days to complete 5-day course Scalp wound infection- MSSA wound culture : MSSA Given doxycycline, continue x2 more days to complete 7-day course Appreciate plastic surgery input We will need to establish with [facility] wound care clinic, follow-up in 1 week (3) Subarachnoid hemorrhage: Plan: H/O syncopal episode and fall 6 weeks ago. Reported was standing in kitchen and next thing she knew she woke up lying on floor with blood coming from her head. Denies any dizziness, chest pain, shortness of breath, palpitations, visual changes prior to episode. Did not evaluate BSG at the time. Evaluated by PCP and noted to have left scalp laceration and scalp hematoma. Patient had denied CT head or ER evaluation at that time. Was reported patient was having headaches, had episode of visual loss for 2 days which has since resolved. Patient denies any falls since 6 weeks ago. --CT head: Suspected tiny acute versus subacute left parietal lobe subarachnoid hemorrhage adjacent to the left parietal scalp hematoma. Chronic left cerebellar infarct. Neurosurgery at [facility] was contacted-Dr. Robertson, who feels patient does not require transfer and recommends repeat CT head in 24 hours --Repeat CT head: . No significant change in the punctate hyperdense focus within the periphery of the left parietal lobe at the level the scalp injury. This could represent punctate subarachnoid hemorrhage/contusion or calcification. Continued [address] follow-up recommended to ensure st ability. There is also a new punctate focus of increased density within the right side of the cortes which could be artifactual. Attention at follow-up is also recommended to exclude the less likely possibility of a punctate focus of hemorrhage. These findings were called/faxed to the referring physician following dictation. --Cannot obtain MRI due to pacemaker Appreciate neurology input Continue neurochecks Avoid NSAIDs, anticoagulants CT head: 1. 3 mm hyperdense focus within the cortical left parietal lobe adjacent to the acute left parietal scalp injury appears stable to slightly increased in size from the 03/06/2021 study suspicious for a small acute cortical contusion. Continued 48-hour head CT follow-up recommended. 2. Previously questioned punctate hyperdensity of the cortes is not identified and may have been artifactual. 3. CTA demonstrates no aneurysm, dissection, high-grade stenosis or arterial occlusion. 4. Chronic findings as above. 03/12/21 stable neurologicallly 2nd repeat CT head stable repeat CT in 1 week (4) Acute on chronic combined systolic (congestive) and diastolic (congestive) heart failure: Plan: Patient satting in the 90s on room air. There is a reading of O2 sat 87% on room air however it is noted pulse ox with poor waveform CXR: Cardiomegaly and pulmonary vascular congestion --ECHO: Normal LV chamber size with mild concentric LVH. Moderately reduced LV systolic function and abnormal septal wall motion consistent with pacemaker activation, otherwise moderate global hypokinesis. Grade 2 diastolic dysfunction. Mild aortic regurgitation, moderate mitral regurgitation, moderate tricuspid regurgitation, severe left atrial enlargement. EF 40 to 45%. Patient missed Lasix and spironolactone dosing on day of admission Received Lasix 40 mg IV X 1 Monitor I's and O's, daily weights, low-sodium diet Patient prescribed spironolactone 25 mg daily however has been taking 12.5 mg daily. Continue home diuretics Monitor volume status Consider IV diuretics as needed 03/12/2021 Diltiazem discontinued, Metoprolol XL 200mg BID started Tolerating well Follow-up with tuft machine operator in 2 weeks Atrial fibrillation with RVR. Chronic atrial fibrillation Chronic atrial fibrillation status post cardioversions and ablation in past. Not on anticoagulation secondary to recurrent falls, history of rectus sheath hematoma, subarachnoid hemorrhage Normal digoxin level Continue metoprolol, digoxin Elevated troponin Troponin: 0.079 Likely demand ischemia ACS less likely Denies chest pain ECHO Showed no wall motion abnormality LE swelling History IVC Filter Bilateral leg swelling with right greater than left. --Venous Doppler:No sonographic evidence of deep venous thrombosis. --Arterial Doppler:No significant stenosis or occlusion within the right lower extremity arterial system. Given additional Lasix in the afternoon Check LE X ray: negative --Continue to monitor wound status closely H/O Tachybrady syndrome, sinus node dysfunction S/P Pacemaker. Generator change on 12/13/2020 H/O frequent falls Patient uses walker at home PT/OT eval HTN Continue losartan, metoprolol succinate Monitor HLD Continue atorvastatin Hypothyroidism Continue levothyroxine DVT Prophylaxis SCDs Re: SAH Code Status Full code Disposition Discharge home today Follow-up with PCP in 1 week Follow-up with tuft machine operator in 2 weeks Follow-up with [facility] wound care center in 1 week plan of care discussed with patient in detail and at length all questions answered she is understanding, agreeable, comfortable with the plan of care Admission and Anticipated Discharge Date Admission Date: March 05, 2021 Subjective Follow-up for syncope, hypoglycemia, etc. Seen sitting up in bed, comfortable, not in distress States she feels fine overall Feels much better Denies dizziness, headache, chest pain, palpitations, shortness of breath No scalp wound pain No other symptoms States that she is ready and would like to be discharged today Review of Systems Review of Systems: all noted and negative except for above Physical Exam Physical Exam: General- oriented x 3, not in distress, speaks in sentences w ith no effort or accessory muscle use Head-scalp wound healing well, no bleeding or discharge Eyes- anicteric Neck- no JVD Lungs- clear breath sounds, no crackles or wheezing bilaterally Heart- normal rate, regular rhythm; no murmurs Abdomen- normal bowel sounds, nondistended, soft, nontender Extremities- no pretibial edema, no calf tenderness Neuro- alert, oriented x 3; no gross focal neurologic deficits Skin- warm & dry Results & Data Results & Data ([facility]) Vital Signs (Past 12 Hours) Vital Signs Temp Pulse Resp BP BP Pulse Ox 03/12/21 13:38 36.8 C 59 L 18 151/83 H 128/66 99 03/12/21 11:55 36.8 C 59 L 18 151/83 H 99 03/12/21 08:19 37.0 C 72 18 135/63 94 03/12/21 05:14 36.8 C 69 16 112/74 93 all noted and reviewed including below
--- NOTE | 2021-03-12 14:24 | Discharge Summary ---
Date of Service March 12, 2021 Admission HPI Per Admitting Provider Patient is 81-year-old female with PMH tachybrady syndrome, sinus node dysfunction s/p dual-chamber pacemaker, s/p generator change on 12/13/2020, h/o permanent atrial fibrillation s/p multiple cardioversions and ablation not on anticoagulation secondary to fall history and history of intracranial hemorrhage in 2009 with supratherapeutic INR, residual left-sided weakness, ambulates with walker, insulin-dependent DM II, HTN, HLD, chronic combined CHF, pulmonary hypertension, H/O IVC filter, chronic iron deficiency, gout, hypothyroidism presented to ER with complaint of syncope. Reports woke up this morning was feeling fine checked her blood sugar and it was 173 and then she took 50 units of Lantus and 10 units of Humalog. She reports eating a bowl of oatmeal, half a banana and cup of milk. Did not eat dinner last night. She went to [employer]. 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 Next thing she knows she woke up on floor and was told that she had syncopal episode. Denies dizziness, chest pain, palpitations, shortness of breath prior to episode. It is reported patient was found to have BSG of 38 and was given 250 ML D10 with repeat BSG of 178. Patient with BSG of 99 upon ER arrival. Patient did not have morning metoprolol, Lasix or spironolactone today. Patient states chronic bilateral lower extremity edema however the past month feels like right lower leg is larger than left and has associated discomfort to entire right lower leg. Denies any erythema or warmth. Denies any known injury or trauma. Denies fever/chills, diaphoresis, N/V/D/C, neck pain, CP, SOB, orthopnea, palpitations, cough, sore throat, choking, otalgia, rhinorrhea, abdominal pain, paresthesias, rashes, urinary symptoms. Of note patient does report 6 weeks ago had what sounds like syncopal episode when she was in her kitchen standing and then she woke up to being on floor with blood coming from her scalp. She denies any known symptoms prior to this episode. Did not take blood sugar at that time. She is unsure if she had skipped meals that day. She did follow-up with PCP on 01/18/2021 and was noted to have left scalp hematoma and laceration and she was complaining of headache at that time. Patient was instructed to have CT scan of head and go to ER however patient denied. Had follow-up with PCP on 01/31/2021 and had reported improvement of headaches however had reported had episode of vision loss for 2 days. Again at that time there was concern for possible brain bleed and patient refused ER. She reports since that time has not had further headaches and denies any further vision loss. History of recurrent falls. Patient reports falls are usually secondary to her losing her balance or her walker getting caught on something causing her to fall Reports fall approximately every 6 to 8 weeks. This fall 6 weeks ago was unlike her other falls as she does not remember what happened. Patient prescribed metoprolol succinate 200 mg in the morning and 100 mg in the evening however patient takes 100 mg in the morning and 200 mg in the evening. Patient takes 20 mg Lasix in the morning and is prescribed spironolactone 25 mg in the morning however has only been taking 12.5. Patient takes 50 units Lantus in the morning. She has Humalog to use 10 units with breakfast, 5 units with lunch and 18 units with dinner plus has correction sliding scale however patient only uses 10 units Humalog at breakfast does not take further throughout the day. In ER patient noted to be in atrial fibrillation with heart rate in the 1 teens, BP 127/97, 97% on room air. No leukocytosis, Hgb: 11.3, K: 3.3, glucose: 99 down to 63 and given 25 mL of dextrose 50%. Troponin: 0.079 In ER patient given her missed dose of metoprolol succinate 50 mg p.o., Cardizem 10 mg IV with pulse down to 60s and 70s. CT head: 1. Suspected tiny acute versus subacute left parietal lobe subarachnoid hemorrhage adjacent to the left parietal scalp hematoma. 2. Chronic left cerebellar infarct. CXR: Cardiomegaly and pulmonary vascular congestion Neurosurgery at [facility] was contacted-Dr. Robertson, who feels patient does not require transfer and recommends repeat CT head in 24 hours. Admission Exam (Per Admitting) Constitutional General: no distress, WDWN Head: normocephalic, atraumatic Eyes: PERRL, EOM's intact, conjunctiva non-injected, anicteric ENT: normal inspection external ears, nose, mucous membranes moist Neck: supple, trachea midline Lungs: no respiratory distress, sat 94% on RA, +rales bases bilaterally CV: Irregularly irregular, rate 76, 2+ pretibial edema Abd: normal BS, soft, non-tender Ext: no cyanosis, right lower leg larger than left with chronic venous stasis changes, no erythema or warmth, diffuse tenderness to palpation right lower leg Neuro: A&O x 3, normal affect, Visual king intact. PERRL, EOMs intact. No nystagmus, The face is strong and symmetric, Hearing grossly intact, Soft palate elevates symmetrically, no dysarthria, shoulder shrug intact, Tongue is midline, normal movement, no fasciculations. Chronic left upper and lower extremity weakness reported however currently both 4/5. Skin: warm, dry Discharge Data Consultations 03/05/21 17:09 Consult Neurology Routine 03/07/21 09:39 Consult Plastic Surgery Routine 03/09/21 10:07 Consult Cardiology Routine Procedures Performed CT head/brain wo con CLINICAL HISTORY: 81 years-old Female with AMS, H/o ICH, 6 WK AGO [facility]. Acutely altered mental status TECHNIQUE: Multiple axial CT images of the head were obtained without contrast. A dose lowering technique was utilized adhering to the principles of ALARA. CT DOSE: 537.48 mGy.cm COMPARISON: Head CT 04/17/2014. FINDINGS: There is no midline shift, intracranial mass, hydrocephalus, territorial ischemia or abnormal extra-axial collection. There is progressive encephalomalacia with moderate loss of the left cerebellar hemisphere suggestive of chronic infarct. Age-related involutional changes with ex vacuo ventriculomegaly. White matter hypodensities suggest chronic microvascular ischemic disease. Senescent calcifications of the lentiform nuclei. Cerebral vascular calcifications. Left parietal scalp hematoma measures 4.2 x 0.8 cm. Minimal subcentimeter focus of adjacent cortically based increased attenuation of the left parietal lobe on image 19 series 2. There is a suggested small associated scalp laceration. The calvarium is intact. Prior bilateral lens repair. The paranasal sinuses, mastoid air cells, and middle ear cavities are clear. IMPRESSION: 1. Suspected tiny acute versus subacute left parietal lobe subarachnoid hemorrhage adjacent to the left parietal scalp hematoma. A 12 to 24 hour follow- up head CT is recommended. 2. Chronic left cerebellar infarct. ACT 112: Negative or not required by law. The above report was generated using voice recognition software. It may contain grammatical, syntax or spelling errors. Electronically signed by: Sarthak Quigley M.D. 03/05/2021 2:[address] SCAN OF THE BRAIN WITHOUT IV CONTRAST CLINICAL HISTORY: Follow-up suspected tiny left parietal lobe hemorrhagic contusion. COMPARISON STUDY: Prior CT scans of the brain, most recently dated 03/08/2021. TECHNIQUE: Unenhanced axial CT scan of the brain is performed from the vertex to the skull base. A dose lowering technique was utilized adhering to the principles of ALARA. CT DOSE: 614.27 mGy.cm FINDINGS: Brain parenchyma: There are age-related involutional changes noting moderate to advanced subcortical and periventricular microangiopathic change. A 3 mm hyperdense focus in the left posterior parietal lobe on image #21 is unchanged. A punctate hyperdense focus is again seen in the right aspect of the cortes on image #11. Tiny foci Of hemorrhage is not excluded. No additional findings are concerning for acute hemorrhage. There is no mass effect or evidence of acute territorial ischemia by CT criteria. Mclain-white matter differentiation is preserved. No extra-axial fluid collection is seen. Mineralization is noted in the basal ganglia. Ventricles, sulci, cisterns: Prominent secondary to involutional change. Intracranial vasculature: There is atherosclerotic calcification of the cavernous carotid and vertebral arteries. Calvarium: The skeletal structures are osteopenic. No depressed calvarial fracture is identified. Soft tissues: A left posterior parietal scalp contusion is again noted. Sinuses and mastoids: The paranasal sinuses are clear. The mastoid air cells are well pneumatized. Orbits: The bony orbits are grossly intact. There are bilateral ocular lens implants. IMPRESSION: 1. There is unchanged appearance of a 3 mm hyperdense focus in the left poste rior parietal lobe cortex and a punctate hyperdense focus in the right aspect of the cortes as compared to recent prior examinations. Differential considerations include tiny foci of hemorrhage versus mineralization. Consider an additional precautionary follow-up examination in one week's time. 2. No new findings are concerning for acute hemorrhage. There is no mass effect or evidence of acute territorial ischemia by CT criteria. ACT 112: Negative or not required by law. Electronically signed by: Isauro Mercado M.D. 03/11/2021 12:56 PM Diabetes Follow Up Diabetes Follow Up: Diabetes Follow-up Needed for HgbA1c >9% Hospital Course (1) Syncope: (2) Hypoglycemia: per Dr. Sebastian's notes with addendum including Diagnoses below: Insulin-dependent DM II Patient is 81-year-old female with PMH tachybrady syndrome, sinus node dysfunction s/p dual-chamber pacemaker, s/p generator change on 12/13/2020, h/o permanent atrial fibrillation s/p multiple cardioversions and ablation not on anticoagulation secondary to fall history and history of intracranial hemorrhage in 2009 with supratherapeutic INR, residual left-sided weakness, ambulates with walker, insulin-dependent DM II, HTN, HLD, chronic combined CHF, pulmonary hypertension, H/O IVC filter, chronic iron deficiency, gout, hypothyroidism presented to ER with complaint of syncope today and was found to have BSG of 38 and was given 250 mL D10 with repeat BSG of 178. Patient had 50 units Lantus and 10 units Humalog this morning and did eat breakfast. Missed dinner last night. Patient takes 50 units Lantus in the morning. She has Humalog to use 10 units with breakfast, 5 units with lunch and 18 units with dinner plus has correction sliding scale however patient only uses 10 units Humalog at breakfast does not take further throughout the day. Syncope Likely due to hypoglycemia A1c: 13 and 11/16/2020 BSGs monitored while in the hospital Pharmacy glycemic control consult placed Recommendation for discharge: Maintain Lantus 50 units in the morning Reduce Humalog to 6 units in the mornings, 6 units for lunch, 6 units for dinner Discontinue correction factor, insulin sliding scale Klebsiella UTI per Urine Culture Given Ceftri Continue cefdinir x3 more days to complete 5-day course Scalp wound infection- MSSA wound culture : MSSA Given doxycycline, continue x2 more days to complete 7-day course Appreciate plastic surgery input We will need to establish with [facility] wound care clinic, follow-up in 1 week (3) Subarachnoid hemorrhage: H/O syncopal episode and fall 6 weeks ago. Reported was standing in kitchen and next thing she knew she woke up lying on floor with blood coming from her head. Denies any dizziness, chest pain, shortness of breath, palpitations, visual changes prior to episode. Did not evaluate BSG at the time. Evaluated by PCP and noted to have left scalp laceration and scalp hematoma. Patient had denied CT head or ER evaluation at that time. Was reported patient was having headaches, had episode of visual loss for 2 days which has since resolved. Patient denies any falls since 6 weeks ago. --CT head: Suspected tiny acute versus subacute left parietal lobe subarachnoid hemorrhage adjacent to the left parietal scalp hematoma. Chronic left cerebellar infarct. Neurosurgery at [facility] was contacted-Dr. Robertson, who feels patient does not require transfer and recommends repeat CT head in 24 hours --Repeat CT head: . No significant change in the punctate hyperdense focus within the periphery of the left parietal lobe at the level the scalp injury. This could represent punctate subarachnoid hemorrhage/contusion or calcification. Continued [address] follow-up recommended to ensure stability. There is also a new punctate focus of increased density within the right side of the cortes which could be artifactual. Attention at follow-up is also recommended to exclude the less likely possibility of a punctate focus of hemorrhage. These findings were called/faxed to the referring physician following dictation. --Cannot obtain MRI due to pacemaker Appreciate neurology input --03/08/2021 CT head, CT angio: 1. 3 mm hyperdense focus within the cortical left parietal lobe adjacent to the acute left parietal scalp injury appears stable to slightly increased in size from the 03/06/2021 study suspicious for a small acute cortical contusion. Continued 48-hour head CT follow-up recommended. 2. Previously questioned punctate hyperdensity of the cortes is not identified and may have been artifactual. 3. CTA demonstrates no aneurysm, dissection, high-grade stenosis or arterial occlusion. 4. Chronic findings as above. - 03/12/21 stable neurologicallly 2nd repeat CT head: 1. There is unchanged appearance of a 3 mm hyperdense focus in the left posterior parietal lobe cortex and a punctate hyperdense focus in the right aspect of the cortes as compared to recent prior examinations. Differential considerations include tiny foci of hemorrhage versus mineralization. Consider an additional precautionary follow-up examination in one week's time. 2. No new findings are concerning for acute hemorrhage. There is no mass effect or evidence of acute territorial ischemia by CT criteria. --Serial CT head reveals stable findings -- repeat CT in 1 week (4) Acute on chronic combined systolic (congestive) and diastolic (congestive) heart failure: Patient satting in the 90s on room air. There is a reading of O2 sat 87% on room air however it is noted pulse ox with poor waveform CXR: Cardiomegaly and pulmonary vascular congestion --ECHO: Normal LV chamber size with mild concentric LVH. Moderately reduced LV systolic function and abnormal septal wall motion consistent with pacemaker activation, otherwise moderate global hypokinesis. Grade 2 diastolic dysfunction. Mild aortic regurgitation, moderate mitral regurgitation, moderate tricuspid regurgitation, severe left atrial enlargement. EF 40 to 45%. 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 Chronic atrial fibrillation Chronic atrial fibrillation status post cardioversions and ablation in past. Not on anticoagulation secondary to recurrent falls, history of rectus sheath hematoma, subarachnoid hemorrhage Normal digoxin level Continue metoprolol, digoxin Elevated troponin Troponin: 0.079 Likely demand ischemia ACS less likely Denies chest pain ECHO Showed no wall motion abnormality LE swelling History IVC Filter Bilateral leg swelling with right greater than left. --Venous Doppler:No sonographic evidence of deep venous thrombosis. --Arterial Doppler:No significant stenosis or occlusion within the right lower extremity arterial system. Given additional Lasix in the afternoon Check LE X ray: negative --Given additional Lasix 20 mg in the evening, resolved Monitor closely H/O Tachybrady syndrome, sinus node dysfunction S/P Pacemaker. Generator change on 12/13/2020 H/O frequent falls Patient uses walker at home PT/OT eval: Recommend return home with home health services Patient has declined home health services despite extensive discussions HTN Continue losartan, metoprolol succinate Monitor HLD Continue atorvastatin Hypothyroidism Continue levothyroxine DVT Prophylaxis SCDs Re: SAH Code Status Full code Disposition Discharge home today Follow-up with PCP in 1 week Follow-up with farm demonstrator in 2 weeks Follow-up with [facility] in 1 week plan of care discussed with patient in detail and at length all questions answered she is understanding, agreeable, comfortable with the plan of care
[2021-03-12] MEDS ORDERED: DOXYCYCLINE HYCLATE 100 MG CAP PO SCH (14:30)
== END 2021-03-12 15:15 | disposition home or self-care (01) | DRG 85 ==
LOC: ED 12:48 → EDINP 15:59 → SUATTDRO 15:59 → 2S 19:57

== ENCOUNTER 2021-06-11 19:36 | Inpatient (IN) ==
[2021-06-11] MEDS ORDERED: SODIUM CHLORIDE 0.9% 500 ML IV SCH (20:00)
[2021-06-11 20:07] LABS: Basophils # (auto) 0.03 K/uL (0-0.2); Basophils % (auto) 0.4 %; Eosinophils # (auto) 0.12 K/uL (0-0.5); Eosinophils % (auto) 1.7 %; Hematocrit (blood only) 35.1 % (37-47); Hemoglobin 11.2 g/dL (12.0-16.0); Immature Granulocytes # (auto) 0.01 K/uL (0.00-0.02); Immature Granulocytes % (auto) 0.1 %; Lymphocytes # (auto) 1.06 K/uL (1.2-3.4); Lymphocytes % (auto) 15.2 %; Mean Corpuscular Hemoglobin 31.7 pg (25-34); Mean Corpuscular Hgb Conc 31.9 g/dL (32-36); Mean Corpuscular Volume 99.4 fL (80-100); Mean Platelet Volume 11.8 fL (7.4-10.4); Monocytes # (auto) 0.72 K/uL (0.11-0.59); Monocytes % (auto) 10.3 %; Neutrophils # (auto) 5.02 K/uL (1.4-6.5); Neutrophils % (auto) 72.3 %; Platelet Count 146 K/uL (130-400); RDW Coefficient of Variation 16.8 % (11.5-14.5); RDW Standard Deviation 60.9 fL (36.4-46.3); Red Blood Count 3.53 M/uL (4.2-5.4); White Blood Count 6.96 K/uL (4.8-10.8)
--- NOTE | 2021-06-11 20:10 | Emergency Department Note ---
Impression & Plan Acute hyperglycemia, Acute alteration in mental status, Diabetic leg ulcer, Noncompliance with medication regimen ED Provider Note NAME: GWEN HENAO AGE: 81 SEX: F : 1940 ARRIVES VIA: Walk-In INFORMANT: Patient, ED PROVIDER(S): Matthew Vivas DO CHIEF COMPLAINT: Altered mental status HPI: The patient is a 81-year-old female who presented to the emergency department for an evaluation of generalized weakness and confusion. The patient has a history of diabetes. She was at home and her daughter went to check on he r today and found her to be confused. The patient does have a history of diabetes as well as an ulcer in her left leg this being treated by her primary care physician. They have been following the ulcer that there is been no specific treatment given so far other than local wound care. The patient denies having any nausea vomiting. She denies having any abdominal pain. She denies having any chest pain or difficulty breathing. She has had no fever or cough. Her was recently admitted to our facility for hip fracture and is now in inpatient rehab but has not been home to help her manage her care. The patient denies having any trauma or head injury. The patient states that she has not been taking her medications the way she supposed to. She has multiple medical issues including cardiac issues as well. ROS: See above HPI for pertinent positives & negatives. A total of 10 systems reviewed and were otherwise negative. PAST MEDICAL HISTORY: See Below PAST SURGICAL HISTORY: See Below FAMILY HISTORY: See Below SOCIAL HISTORY: See Below HOME MEDICATIONS: See Below ALLERGIES: See Below VITALS: See Below PHYSICAL EXAMINATION: GENERAL: The patient is awake but somewhat listless. She does not appear to be uncomfortable. EYES: The conjunctivae are clear. The pupils are round and reactive. EARS, NOSE, MOUTH AND THROAT: The nose is without any evidence of any deformity. Mucous membranes are dry. NECK: The neck is nontender and supple. RESPIRATORY: Normal respiratory effort is noted there is no evidence of wheezing rhonchi or rales CARDIOVASCULAR: Irregular heart sounds are noted auscultation. No definite murmur was noted. GASTROINTESTINAL: The abdomen was soft and nondistended. There is epigastric tenderness to palpation but no guarding rigidity. MUSCULOSKELETAL/EXTREMITIES: There is no evidence of gross deformity full range of motion is noted in the hips and shoulders. SKIN: Skin is warm and dry. There is trace pedal edema bilaterally. There is an ulcer on the lateral aspect the left leg. There is drainage noted. There is surrounding erythema which is moderate. NEUROLOGIC: Patient is awake to verbal commands. Strength was symmetric but diminished. The patient appears to be oriented to person place but not time or situation. She does recognize her daughter. MEDICAL DECISION MAKING: The patient is a 81-year-old female who presented to the emergency department with her daughter for an evaluation. The patient was found at her home by her daughter confused. She has been having problems with her legs recently. She has had an ulcer in her left leg which is slowly healing. She is currently not on any antibiotics. Further questioning reveals that the patient is at home al one as her was recently admitted to inpatient rehab after hip replacement surgery. The patient has not been taking her medications properly. She is not been taking her diabetes medications properly either. She was found to have hyperglycemia. On exam she did have some abdominal pain and some confusion. I discussed the patient's laboratory and radiographic studies with her and her daughter. She was treated with IV fluids and IV antibiotics for the leg ulcer. [facility] also [facility] have agreed to evaluate the patient in the emergency department for further management and disposition. Triage Nursing notes reviewed. Prior medical records reviewed Vital Signs: reviewed and remarkable for no significant abnormalities Differential diagnosis: Infection, hypoglycemia, electrolyte abnormalities, overdose, toxicologic, cardiac sources, intracerebral event, neurologic, trauma, as well as other pathologies. ER treatment provided: See below Diagnostics interpreted by me: ECG: EKG was obtained in the emergency department. My interpretation is atrial fibrillation at 107 bpm. No PVCs were noted. Left bundle branch block pattern was appreciated. This was compared to a tracing from March 072020. No changes were noted. Cardiac Monitoring: An order was placed for continuous cardiac monitoring. The monitor shows a rate of 82 bpm with atrial fibrillation. Laboratory studies: As stated above and show below. Imaging studies: See below Consultation(s): I discussed this case with Dr. Faustin who [facility] He will evaluate the patient in the emergency department for further management and disposition. Past Med/Surg History Medical History Afib Cerebral hemorrhage "2010 left hemiparesis" Chronic anemia Chronic combined systolic and diastolic CHF (congestive heart failure) Diabetes mellitus, type II Gout Hematoma of rectus sheath Hemiplegia History of - cerebrovascular accident HLD (hyperlipidemia) HTN (hypertension) Hypothyroidism Pacemaker Presence of IVC filter Tachy-jodi syndrome Surgical History Status post appendectomy Status post cardiac pacemaker procedure Status post cataract extraction Status post cholecystectomy Status post hysterectomy Status post insertion of inferior vena caval filter Family History Daughter Breast cancer Mother Cancer pancreatic Father Heart disease Social History Smoking Status: Never smoker Second Hand Exposure: No; Hx Alcohol Use: No Hx Substance Use: No Preferred Language: Salvadorean Communication Ability: Effective Pipe Buffer Required: No Beliefs That Will Affect Care: None Current Living Situation: Spouse Feels Safe at Home: Yes Assistive Devices: Walker Allergies Allergies Allergy/AdvReac Type Severity Reaction Status Date / Time citalopram Allergy Unknown Verified 06/11/21 21:23 paroxetine Allergy Unknown Verified 06/11/21 21:23 Sulfa (Sulfonamide Allergy Unknown TOLERATES Verified 06/11/21 21:23 Antibiotics) LASIX venom-wasp protein Allergy Unknown HIVES Verified 06/11/21 21:23 celecoxib AdvReac Mild N/V Verified 06/11/21 21:23 Home Meds Home Medications Medication Instructions Recorded Confirmed atorvastatin 40 mg tablet 40 mg PO HS 12/13/20 06/11/21 insulin glargine 100 unit/mL (3 50 unit SUBCUT QAM 12/13/20 06/11/21 mL) subcutaneous pen (Lantus Solostar U-100 Insulin) levothyroxine 75 mcg tablet 75 mcg PO HS 12/13/20 06/11/21 losartan 50 mg tablet 50 mg PO HS 12/13/20 06/11/21 magnesium oxide 400 mg PO HS 12/13/20 06/11/21 rizatriptan 5 mg tablet 5 mg PO DIRECTED PRN 12/13/20 06/11/21 spironolactone 25 mg tablet 12.5 mg PO HS 12/13/20 06/11/21 allopurinol 300 mg tablet 300 mg PO HS 03/05/21 06/11/21 cholecalciferol (vitamin D3) 25 25 mcg PO HS 03/05/21 06/11/21 mcg (1,000 unit) tablet digoxin 125 mcg (0.125 mg) tablet 125 mcg PO DAILY@199903/05/21 06/11/21 epinephrine 0.3 mg/0.3 mL 0.3 mg IM Q4H PRN 03/05/21 06/11/21 injection, auto-injector furosemide 40 mg tablet 20 mg PO QAM 03/05/21 06/11/21 gabapentin 300 mg capsule 300 mg PO HS 03/05/21 06/11/21 hydrocodone 5 mg-acetaminophen 325 1 tab PO Q6 PRN 03/05/21 06/11/21 mg tablet insulin lispro 100 unit/mL 6 - 8 unit SUBCUT AC 06/11/21 06/11/21 subcutaneous pen (Humalog KwikPen (U-100) Insulin) metoprolol succinate 200 mg 200 mg PO BID 06/11/21 06/11/21 tablet,extended release 24 hr vitamins A,C,L-[id number]-[id number] 14,320 1 cap PO HS 06/11/21 06/11/21 unit-226 mg-200 unit capsule (PreserVision AREDS) Results & Data (ED) Vital Signs Vital Signs - 24 hr 06/11/21 19:38 06/11/21 20:04 Temperature 37.0 C Temperature Source Temporal Artery Scan Pulse Rate 97 H 82 Pulse Rate [Left Apical] 91 H Pulse Rhythm Regular Pulse Rhythm [Left Apical] Regular Pulse Strength [Left Apical] Normal Respiratory Rate 18 20 Respiratory Effort / Characteristics Non-Labored Spontaneous Non-Labored Respiratory Depth Normal Normal Respiratory Pattern Regular Blood Pressure 122/84 Blood Pressure [Right Arm] 136/92 Blood Pressure Mean 96 Blood Pressure Mean [Right Arm] 106 Blood Pressure Position [Right Arm] Lying Pulse Oximetry 98 95 Oxygen Delivery Method Room Air Room Air Sepsis Recent Fever Within 48 Hours No Sepsis New/Unexplained Change in Mental Status No Sepsis Action Taken by Nursing No Action Required Home Medications Current Medication List: was personally reviewed by me Laboratory Data Attestation: I reviewed the patient's lab results. Result diagrams: 06/11/21 19:58 06/11/21 19:58 Lab Results 06/11/21 06/11/21 06/11/21 Range/Units 19:53 19:58 19:58 WBC 6.96 (4.8-10.8) K/uL RBC 3.53 L (4.2-5.4) M/uL Hgb 11.2 L (12.0-16.0) g/dL Hct 35.1 L (37-47) % MCV 99.4 (80-100) fL MCH 31.7 (25-34) pg MCHC 31.9 L (32-36) g/dL RDW Std Deviation 60.9 H (36.4-46.3) fL RDW Coeff of Chano 16.8 H (11.5-14.5) % Plt Count 146 (130-400) K/uL MPV 11.8 H (7.4-10.4) fL Immature Gran % (Auto) 0.1 % Neut % (Auto) 72.3 % Lymph % (Auto) 15.2 % [place] % (Auto) 10.3 % Eos % (Auto) 1.7 % Baso % (Auto) 0.4 % Neut # (Auto) 5.02 (1.4-6.5) K/uL Lymph # (Auto) 1.06 L (1.2-3.4) K/uL [place] # (Auto) 0.72 H (0.11-0.59) K/uL Eos # (Auto) 0.12 (0-0.5) K/uL Baso # (Auto) 0.03 (0-0.2) K/uL Immature Gran # (Auto) 0.01 (0.00-0.02) K/uL ESR (0-30) mm/hr PT 12.9 H (9.0-12.0) Seconds INR 1.3 H (0.9-1.1) APTT 25.3 (21.0-31.0) Seconds PTT Ratio 1.0 VBG pH (7.36-7.41) VBG pCO2 (38-50) mmHg VBG pO2 mmHg VBG HCO3 mmol/L VBG O2 Saturation % VBG Base Excess mEq/L Barometric Pressure mm/Hg Sodium (136-145) mmol/L Potassium (3.5-5.1) mmol/L Chloride (98-107) mmol/L Carbon Dioxide (21-32) mmol/L Anion Gap (3-11) BUN (6-23) mg/dl Creatinine (0.6-1.2) mg/dl Est Cr Clr Drug Dosing Est GFR ( Amer) ml/min Est GFR (Non-Af Amer) ml/min BUN/Creatinine Ratio (10-20) Glucose (70-99(Fasting)) mg/dl POC Glucose 446 H* (70-99) mg/dl Lactate (0.4-2.0) mmol/L Calcium (8.5-10.1) mg/dl Magnesium (1.7-2.4) mg/dl Total Bilirubin (0.2-1.0) mg/dl AST (13-39) U/L ALT (7-52) U/L Alkaline Phosphatase (34-104) U/L Troponin I (0-0.04) ng/ml C-Reactive Protein (0-0.5) mg/dl Total Protein (6.0-8.3) gm/dl Albumin (3.4-5.0) gm/dl Globulin (2.5-4.0) gm/dl Albumin/Globulin Ratio (0.9-2) Procalcitonin (0-0.5) ng/ml TSH (0.300-4.500) uIu/ml Digoxin (0.8-2.0) ng/ml SARS-CoV-2, RNA, NAAT (NEGATIVE) 06/11/21 06/11/21 06/11/21 Range/Units 19:58 19:58 19:58 WBC (4.8-10.8) K/uL RBC (4.2-5.4) M/uL Hgb (12.0-16.0) g/dL Hct (37-47) % MCV (80-100) fL MCH (25-34) pg MCHC (32-36) g/dL RDW Std Deviation (36.4-46.3) fL RDW Coeff of Chano (11.5-14.5) % Plt Count (130-400) K/uL MPV (7.4-10.4) fL Immature Gran % (Auto) % Neut % (Auto) % Lymph % (Auto) % [place] % (Auto) % Eos % (Auto) % Baso % (Auto) % Neut # (Auto) (1.4-6.5) K/uL Lymph # (Auto) (1.2-3.4) K/uL [place] # (Auto) (0.11-0.59) K/uL Eos # (Auto) (0-0.5) K/uL Baso # (Auto) (0-0.2) K/uL Immature Gran # (Auto) (0.00-0.02) K/uL ESR 67 H (0-30) mm/hr PT (9.0-12.0) Seconds INR (0.9-1.1) APTT (21.0-31.0) Seconds PTT Ratio VBG pH (7.36-7.41) VBG pCO2 (38-50) mmHg VBG pO2 mmHg VBG HCO3 mmol/L VBG O2 Saturation % VBG Base Excess mEq/L Barometric Pressure mm/Hg Sodium 132 L (136-145) mmol/L Potassium 4.6 (3.5-5.1) mmol/L Chloride 103 (98-107) mmol/L Carbon Dioxide 19 L (21-32) mmol/L Anion Gap 10 (3-11) BUN 37 H (6-23) mg/dl Creatinine 1.16 (0.6-1.2) mg/dl Est Cr Clr Drug Dosing Not Reportable Est GFR ( Amer) 51.9 ml/min Est GFR (Non-Af Amer) 44.7 ml/min BUN/Creatinine Ratio 31.9 H (10-20) Glucose 419 H* (70-99(Fasting)) mg/dl POC Glucose (70-99) mg/dl Lactate (0.4-2.0) mmol/L Calcium 9.1 (8.5-10.1) mg/dl Magnesium 2.0 (1.7-2.4) mg/dl Total Bilirubin 0.9 (0.2-1.0) mg/dl AST 19 (13-39) U/L ALT 16 (7-52) U/L Alkaline Phosphatase 100 (34-104) U/L Troponin I 0.05 H* (0-0.04) ng/ml C-Reactive Protein < 0.50 (0-0.5) mg/dl Total Protein 7.9 (6.0-8.3) gm/dl Albumin 4.2 (3.4-5.0) gm/dl Globulin 3.7 (2.5-4.0) gm/dl Albumin/Globulin Ratio 1.1 (0.9-2) Procalcitonin (0-0.5) ng/ml TSH 4.372 (0.300-4.500) uIu/ml Digoxin (0.8-2.0) ng/ml SARS-CoV-2, RNA, NAAT (NEGATIVE) 06/11/21 06/11/21 06/11/21 Range/Units 19:58 20:04 20:21 WBC (4.8-10.8) K/uL RBC (4.2-5.4) M/uL Hgb (12.0-16.0) g/dL Hct (37-47) % MCV (80-100) fL MCH (25-34) pg MCHC (32-36) g/dL RDW Std Deviation (36.4-46.3) fL RDW Coeff of [place]ano (11.5-14.5) % Plt Count (130-400) K/uL MPV (7.4-10.4) fL Immature Gran % (Auto) % Neut % (Auto) % Lymph % (Auto) % [place] % (Auto) % Eos % (Auto) % Baso % (Auto) % Neut # (Auto) (1.4-6.5) K/uL Lymph # (Auto) (1.2-3.4) K/uL [place] # (Auto) (0.11-0.59) K/uL Eos # (Auto) (0-0.5) K/uL Baso # (Auto) (0-0.2) K/uL Immature Gran # (Auto) (0.00-0.02) K/uL ESR (0-30) mm/hr PT (9.0-12.0) Seconds INR (0.9-1.1) APTT (21.0-31.0) Seconds PTT Ratio VBG pH (7.36-7.41) VBG pCO2 (38-50) mmHg VBG pO2 mmHg VBG HCO3 mmol/L VBG O2 Saturation % VBG Base Excess mEq/L Barometric Pressure mm/Hg Sodium (136-145) mmol/L Potassium (3.5-5.1) mmol/L Chloride (98-107) mmol/L Carbon Dioxide (21-32) mmol/L Anion Gap (3-11) BUN (6-23) mg/dl Creatinine (0.6-1.2) mg/dl Est Cr Clr Drug Dosing Est GFR ( Amer) ml/min Est GFR (Non-Af Amer) ml/min BUN/Creatinine Ratio (10-20) Glucose (70-99(Fasting)) mg/dl POC Glucose (70-99) mg/dl Lactate (0.4-2.0) mmol/L Calcium (8.5-10.1) mg/dl Magnesium (1.7-2.4) mg/dl Total Bilirubin (0.2-1.0) mg/dl AST (13-39) U/L ALT (7-52) U/L Alkaline Phosphatase (34-104) U/L Troponin I (0-0.04) ng/ml C-Reactive Protein (0-0.5) mg/dl Total Protein (6.0-8.3) gm/dl Albumin (3.4-5.0) gm/dl Globulin (2.5-4.0) gm/dl Albumin/Globulin Ratio (0.9-2) Procalcitonin 0.05 (0-0.5) ng/ml TSH (0.300-4.500) uIu/ml Digoxin < 0.3 L (0.8-2.0) ng/ml SARS-CoV-2, RNA, NAAT NEGATIVE (NEGATIVE) 06/11/21 06/11/21 06/11/21 Range/Units 20:21 20:21 21:00 WBC (4.8-10.8) K/uL RBC (4.2-5.4) M/uL Hgb (12.0-16.0) g/dL Hct (37-47) % MCV (80-100) fL MCH (25-34) pg MCHC (32-36) g/dL RDW Std Deviation (36.4-46.3) fL RDW Coeff of [place] (11.5-14.5) % Plt Count (130-400) K/uL MPV (7.4-10.4) fL Immature Gran % (Auto) % Neut % (Auto) % Lymph % (Auto) % [place] % (Auto) % Eos % (Auto) % Baso % (Auto) % Neut # (Auto) (1.4-6.5) K/uL Lymph # (Auto) (1.2-3.4) K/uL [place] # (Auto) (0.11-0.59) K/uL Eos # (Auto) (0-0.5) K/uL Baso # (Auto) (0-0.2) K/uL Immature Gran # (Auto) (0.00-0.02) K/uL ESR (0-30) mm/hr PT (9.0-12.0) Seconds INR (0.9-1.1) APTT (21.0-31.0) Seconds PTT Ratio VBG pH 7.35 L (7.36-7.41) VBG pCO2 39 (38-50) mmHg VBG pO2 27 mmHg VBG HCO3 21 mmol/L VBG O2 Saturation < 60.0 % VBG Base Excess -4.3 mEq/L Barometric Pressure 732.5 mm/Hg Sodium (136-145) mmol/L Potassium (3.5-5.1) mmol/L Chloride (98-107) mmol/L Carbon Dioxide (21-32) mmol/L Anion Gap (3-11) BUN (6-23) mg/dl Creatinine (0.6-1.2) mg/dl Est Cr Clr Drug Dosing Est GFR ( Amer) ml/min Est GFR (Non-Af Amer) ml/min BUN/Creatinine Ratio (10-20) Glucose (70-99(Fasting)) mg/dl POC Glucose 424 H* (70-99) mg/dl Lactate 1.7 (0.4-2.0) mmol/L Calcium (8.5-10.1) mg/dl Magnesium (1.7-2.4) mg/dl Total Bilirubin (0.2-1.0) mg/dl AST (13-39) U/L ALT (7-52) U/L Alkaline Phosphatase (34-104) U/L Troponin I (0-0.04) ng/ml C-Reactive Protein (0-0.5) mg/dl Total Protein (6.0-8.3) gm/dl Albumin (3.4-5.0) gm/dl Globulin (2.5-4.0) gm/dl Albumin/Globulin Ratio (0.9-2) Procalcitonin (0-0.5) ng/ml TSH (0.300-4.500) uIu/ml Digoxin (0.8-2.0) ng/ml SARS-CoV-2, RNA, NAAT (NEGATIVE) Administered Medications Discontinued Medications Sodium Chloride (Nss) 500 mls @ 999 mls/hr IV .Q31M ANGELINE Stop: 06/11/21 20:30 Last Infusion: 06/11/21 20:35 Dose: 0 mls/hr Documented by: [id number] Admin: 06/11/21 20:04 Dose: 999 mls/hr Documented by: [id number] Ceftriaxone Sodium (Rocephin) 1,000 mg in 50 mls @ 100 mls/hr IV NOW STA Stop: 06/11/21 21:04 Last Infusion: 06/11/21 21:24 Dose: 0 mls/hr Documented by: [id number] Admin: 06/11/21 20:52 Dose: 100 mls/hr Documented by: [id number] Sodium Chloride (Nss 1000ml) 500 mls @ 999 mls/hr IV .Q31M ONE Stop: 06/11/21 21:50 Last Infusion: 06/11/21 22:03 Dose: 0 mls/hr Documented by: [id number] Admin: 06/11/21 21:29 Dose: 999 mls/hr Documented by: [id number] Insulin Human Regular (Novolin-R Insulin Per Unit Charge) 6 units IV NOW STA Stop: 06/11/21 21:21 Last Admin: 06/11/21 21:27 Dose: 6 units Documented by: [id number] Cosigned by: [id number] Imaging Data Radiologist's Impression: Chest X-Ray 06/11/21 19:49 XR chest 1V portable CLINICAL HISTORY: weakness TECHNIQUE: Single frontal radiograph of the chest was obtained. Comparison: Comparison is made to chest one view 03/10/2021 FINDINGS: No lines and tubes are seen. Cardiomegaly is noted. Calcified aortic knob is seen. The lungs are clear. No evidence of pleural effusion or pneumothorax. IMPRESSION: No acute chest disease. Cardiomegaly is noted. ACT 112: Negative or not required by law. Electronically signed by: Parminder Odom M.D. 06/11/2021 9:07 PM Abdomen/Pelvis CT 06/11/21 19:59 CT abd pelvis wo con CLINICAL HISTORY: pain TECHNIQUE: Helical axial images of the abdomen and pelvis were obtained. Au tomated dose lowering techniques and/or adjustment according to patient size were utilized for this exam. This exam was performed without intravenous contrast. COMPARISON: Comparison is made to CT pelvis 07/13/[address] abdomen pelvis 04/16/2014 FINDINGS: Lower chest: Partial visualization of marked cardiomegaly. Atelectasis versus scarring is seen in the lung bases. Liver: Nodular contour of the liver is seen compatible with cirrhosis. Gallbladder and biliary tree: Patient is status post cholecystectomy. No intra- or extrahepatic biliary ductal dilation. Pancreas: Unremarkable, no focal lesions. Spleen: Multiple hypodensities are seen in the spleen. These are favored to represent cysts. Adrenals: Unremarkable. Kidneys and ureters: Nonobstructive nephrolithiasis is seen. Bladder: Unremarkable. Reproductive organs: Patient is status post hysterectomy. Bowel: Diverticulosis is seen without evidence of diverticulitis. Lymph nodes Retroperitoneal: Multiple enlarged lymph nodes are seen measuring up to 11 mm in short axis Mesenteric: Unremarkable. Pelvic: Unremarkable. Peritoneum: There is a trace amount of peritoneal fluid about the hepatic dome and spleen. Vessels: The abdominal aorta measures up to 26 mm in diameter. There is extensive atherosclerotic disease. IVC filter is incidentally noted. Abdominal wall: Unremarkable. Bones: Degenerative changes in the visualized spine. A medullary [place] is seen in the left femur. IMPRESSION: No acute abnormalities. Cirrhosis, diverticulosis, atherosclerotic changes are seen. There is trace ascites which is nonspecific. ACT 112: Negative or not required by law. Electronically signed by: Parminder Odom M.D. 06/11/2021 9:[address] 06/11/21 19:59 CT head/brain wo con CLINICAL HISTORY: ams Technique: Contiguous axial CT images of the head were acquired from the base of the skull to the vertex without intravenous contrast administration. Images were viewed in brain, subdural and bone windows. Automated dose lowering techniques and/or adjustment according to patient size were utilized for this exam. Comparison: Comparison is made to CT head 03/21/2021 Findings: Areas of decreased attenuation are present in the periventricular and subcortical white matter bilaterally consistent with small vessel ischemic disease. Generalized cerebral atrophy with commensurate enlargement of the ventricles, sulci, and cisterns is also present. There is no acute intracranial hemorrhage or evidence of acute territorial infarction. No shift of the midline structures, mass effect, or extra-axial abnormalities are shown. Atherosclerotic calcifications are present in the intracranial segments of the internal carotid arteries. Imaged portions of the paranasal sinuses and mastoid air cells are clear. The orbits appear normal. There are no acute fractures of the calvaria or scalp swelling. Soft tissue density in the frontal scalp may represent sebaceous cyst. Impression: No acute intracranial hemorrhage, no evidence of acute territorial infarction or other acute intracranial disease process. ACT 112: Negative or not required by law. Electronically signed by: Parminder Odom M.D. 06/11/2021 8:48 PM Discharge Plan Visit Data Chief Complaint: Hyperglycemia Stated Complaint: HYPERGLYCEMIC, CONFUSED, LOSS OF APPETITE ED Provider: Matthew Vivas Discharge Problem: Acute hyperglycemia, Acute alteration in mental status, Diabetic leg ulcer, N oncompliance with medication regimen Patient Disposition: Being Evaluated by Hospitalist Forms Stand Alone Forms: My [facility] Prescriptions Prescriptions: No Action losartan 50 mg Tablet 50 mg PO HS RF: 0 atorvastatin 40 mg Tablet 40 mg PO HS RF: 0 spironolactone 25 mg Tablet 12.5 mg PO HS RF: 0 levothyroxine 75 mcg Tablet 75 mcg PO HS RF: 0 rizatriptan 5 mg Tablet 5 mg PO DIRECTED PRN (Reason: Migraine Headache) RF: 0 Lantus Solostar U-100 Insulin 100 unit/mL (3 mL) Insulin Pen 50 unit SUBCUT QAM RF: 0 magnesium oxide 400 mg magnesium Capsule 400 mg PO HS RF: 0 metoprolol succinate 200 mg tablet extended release 24 hr 200 mg PO BID RF: 0 PreserVision AREDS [id number] Capsule 1 cap PO HS RF: 0 insulin lispro [Humalog KwikPen Insulin] 100 unit/mL insulin pen 6 - 8 unit subcut AC RF: 0 hydrocodone-acetaminophen 5-325 mg tablet 1 tab PO Q6 PRN (Reason: Pain) RF: 0 gabapentin 300 mg capsule 300 mg PO HS RF: 0 allopurinol 300 mg tablet 300 mg PO HS RF: 0 digoxin 125 mcg (0.125 mg) tablet 125 mcg PO DAILY@2000 RF: 0 epinephrine 0.3 mg/0.3 mL Auto-Injector 0.3 mg IM Q4H PRN (Reason: Allergic Reaction) RF: 0 cholecalciferol (vitamin D3) 25 mcg (1,000 unit) Tablet 25 mcg PO HS RF: 0 furosemide 40 mg Tablet 20 mg PO QAM RF: 0 Referrals Referrals: Mo Fontenot, [Primary Care Provider] -
[2021-06-11 20:35] LABS: Base Excess VBG -4.3 mEq/L; HCO3 VBG 21 mmol/L; PCO2 VBG 39 mmHg (38-50); PO2 VBG 27 mmHg; pH VBG 7.35 (7.36-7.41)
[2021-06-11] MEDS ORDERED: cefTRIAXone SODIUM 1,000 MG/50 ML BAG IV STA (20:35)
[2021-06-11 20:38] LABS: Oxygen Saturation VBG < 60.0 %
[2021-06-11 20:38] LABS: INR 1.3 (0.9-1.1); Partial Thromboplastin Time 25.3 Seconds (21.0-31.0); Prothrombin Time 12.9 Seconds (9.0-12.0)
[2021-06-11 20:50] LABS: Alanine Aminotransferase 16 U/L (7-52); Albumin Globulin Ratio 1.1 (0.9-2); Albumin Level 4.2 gm/dl (3.4-5.0); Alkaline Phosphatase 100 U/L (34-104); Anion Gap 10 (3-11); Aspartate Aminotransferase 19 U/L (13-39); BUN Creatinine Ratio 31.9 (10-20); Bilirubin,Total 0.9 mg/dl (0.2-1.0); Blood Urea Nitrogen 37 mg/dl (6-23); C Reactive Protein < 0.50 mg/dl (0-0.5); Calcium 9.1 mg/dl (8.5-10.1); Carbon Dioxide 19 mmol/L (21-32); Chloride 103 mmol/L (98-107); Est GFR (African American) 51.9 ml/min; Est GFR (Non-African American) 44.7 ml/min; Globulin 3.7 gm/dl (2.5-4.0); Glucose 419 mg/dl (70-99(Fasting)); Potassium 4.6 mmol/L (3.5-5.1); Sodium 132 mmol/L (136-145); Total Protein 7.9 gm/dl (6.0-8.3); Troponin I 0.05 ng/ml (0-0.04)
--- NOTE | 2021-06-11 20:50 | CT Scan Report ---
CT head/brain wo con CLINICAL HISTORY: ams Technique: Contiguous axial CT images of the head were acquired from the base of the skull to the juan c rocio without intravenous contrast administration. Images were viewed in brain, subdural and bone [facility]. Automated dose lowering techniques and/or adjustment according to patient size were utilized for this exam. Comparison: Comparison is made to CT head 03/21/2021 Findings: Areas of decreased attenuation are present in the periventricular and subcortical white matter bilate rally consistent with small vessel ischemic disease. Generalized cerebral atrophy with commensurate e nlargement of the ventricles, sulci, and cisterns is also present. There is no acute intracranial hem orrhage or evidence of acute territorial infarction. No shift of the midline structures, mass effect, or extra-axial abnormalities are shown. Atherosclerotic calcifications are present in the intracran ial segments of the internal carotid arteries. Imaged portions of the paranasal sinuses and mastoid air cells are clear. The orbits appear normal. There are no acute fractures of the calvaria or scalp swelling. Soft tissue density in the frontal s calp may represent sebaceous cyst. Impression: No acute intracranial hemorrhage, no evidence of acute territorial infarction or other acute intracra nial disease process. ACT 112: Negative or not required by law. Electronically signed by: Parminder Odom M.D. 06/11/2021 8:48 PM
--- NOTE | 2021-06-11 21:05 | CT Scan Report ---
CT abd pelvis wo con CLINICAL HISTORY: pain TECHNIQUE: Helical axial images of the abdomen and pelvis were obtained. Automated dose lowering tech niques and/or adjustment according to patient size were utilized for this exam. This exam was perfor med without intravenous contrast. COMPARISON: Comparison is made to CT pelvis 07/13/[address] abdomen pelvis 04/16/2014 FINDINGS: Lower chest: Partial visualization of marked cardiomegaly. Atelectasis versus scarring is seen in th e lung bases. Liver: Nodular contour of the liver is seen compatible with cirrhosis. Gallbladder and biliary tree: Patient is status post cholecystectomy. No intra- or extrahepatic bilia ry ductal dilation. Pancreas: Unremarkable, no focal lesions. Spleen: Multiple hypodensities are seen in the spleen. These are favored to represent cysts. Adrenals: Unremarkable. Kidneys and ureters: Nonobstructive nephrolithiasis is seen. Bladder: Unremarkable. Reproductive organs: Patient is status post hysterectomy. Bowel: Diverticulosis is seen without evidence of diverticulitis. Lymph nodes Retroperitoneal: Multiple enlarged lymph nodes are seen measuring up to 11 mm in short axis Mesenteric: Unremarkable. Pelvic: Unremarkable. Peritoneum: There is a trace amount of peritoneal fluid about the hepatic dome and spleen. Vessels: The abdominal aorta measures up to 26 mm in diameter. There is extensive atherosclerotic dis ease. IVC filter is incidentally noted. Abdominal wall: Unremarkable. Bones: Degenerative changes in the visualized spine. A medullary [place] is seen in the left femur. IMPRESSION: No acute abnormalities. Cirrhosis, diverticulosis, atherosclerotic changes are seen. There is trace a scites which is nonspecific. ACT 112: Negative or not required by law. Electronically signed by: Parminder Odom M.D. 06/11/2021 9:04 PM
--- NOTE | 2021-06-11 21:08 | XRay Report ---
XR chest 1V portable CLINICAL HISTORY: weakness TECHNIQUE: Single frontal radiograph of the chest was obtained. Comparison: Comparison is made to chest one view 03/10/2021 FINDINGS: No lines and tubes are seen. Cardiomegaly is noted. Calcified aortic knob is seen. The lungs are petrona r. No evidence of pleural effusion or pneumothorax. IMPRESSION: No acute chest disease. Cardiomegaly is noted. ACT 112: Negative or not required by law. Electronically signed by: Parminder Odom M.D. 06/11/2021 9:07 PM
[2021-06-11] MEDS ORDERED: NovoLIN-R INSULIN PER UNIT CHARGE IV STA (21:20)
[2021-06-11] MEDS ORDERED: SODIUM CHLORIDE 0.9% 1000ML 500 ML IV ONE (21:20)
[2021-06-11] MEDS ORDERED: INSULIN GLARGINE SOLOSTAR 100 UNITS/ML 3 ML PEN SC STA (22:42)
--- NOTE | 2021-06-11 23:20 | History & Physical Report ---
Date of Service June 11, 2021 Assessment & Plan (1) Encephalopathy: Plan: Multifactorial: Hyperglycemia, DM2 insulin requiring, suboptimal control as of recent hemoglobin A1c of 10.15 February 2021, possible functional disability Infection, no overt sepsis (possible sources left leg wound rule out osteomyelitis, possible complicated UTI) Home Vicodin possibly contributory Troponin elevation secondary to tachycardia chronic diastolic heart failure EF 55% to 59%, TTE 2020), patient on the dry side history of SSS sp PPM, patient currently in A. fib, off anticoagulation because of history of frequent falls/rectus sheath hematoma/subarachnoid hemorrhage Hypertension, stable Chronic anemia, hemoglobin at baseline Medical telemetry Basal bolus insulin, ISS BG goal 1 10-1 40, carb count coverage, update hemoglobin A1c CS, Doxycycline for left leg cellulitis, plain x-ray of the left lower leg rule out osteomyelitis, wound care nurse consult for left leg wound Cefepime for possible UTI Hold patient Vicodin until patient mentation back to baseline. IVF PT OT eval DVT prophylaxis. SCDs Re: History ICH Full code Patient requests for her daughter to be given periodic updates. Ms. Chris Linton, contact #[phone]. Text document was generated using [employer] voice recognition software. It may contain grammatical or spelling errors. Kindly contact undersigned for clarification of any documentation item in question. History of Present Illness Chief Complaint: Confusion as per records Primary Care Provider: Mo Fontenot, History obtained from patient and records. Medical history significant for chronic diastolic heart failure EF 55% to 59%, TTE 2020), history of SSS sp PPM, off anticoagulation because of history of frequent falls/rectus sheath hematoma/subarachnoid hemorrhage in the past, HTN, DM 2 insulin requiring chronic anemia (baseline hemoglobin 10-11), hypothyroidism, chronic pain, chronic thrombocytopenia Last confinement February 2021 for syncope secondary to hypoglycemia. Patient with left lower leg wound for a few weeks now. Some drainage. Topical dressing prescribed by PCP. Left lower leg painful as per patient on PCP visit few days ago. Patient feeling more tired the last few days. No chest pain, no S OB. No headache, no abdominal pain. Patient found by daughter to be confused at home today. Patient admits to not taking her medications the way she is supposed to. BSG noted to be 400s at the ER. IV insulin administered. IV ceftriaxone given at the ER. Patient currently feels much clearer. MEDICAL HISTORY: As above. SURGERIES: Appendectomy, cholecystectomy, hysterectomy, IVC filter placement, cataract surgery, some back surgery, wrist surgery, kidney stone procedure, Achilles tendon surgery, breast biopsy, and pacemaker placement, FAMILY HISTORY: Diabetes, heart disease, and high blood pressure. PERSONAL SOCIAL HISTORY: Nonsmoker. No chronic intake of alcoholic beverages. 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 Allergies Allergy/AdvReac Type Severity Reaction Status Date / Time citalopram Allergy Unknown Verified 06/11/21 21:23 paroxetine Allergy Unknown Verified 06/11/21 21:23 Sulfa (Sulfonamide Allergy Unknown TOLERATES Verified 06/11/21 21:23 Antibiotics) LASIX venom-wasp protein Allergy Unknown HIVES Verified 06/11/21 21:23 celecoxib AdvReac Mild N/V Verified 06/11/21 21:23 Home Medications Medication Instructions Recorded Confirmed Type atorvastatin 40 mg tablet 40 mg PO HS 12/13/20 06/11/21 History insulin glargine 100 unit/mL (3 50 unit SUBCUT QAM 12/13/20 06/11/21 History mL) subcutaneous pen (Lantus Solostar U-100 Insulin) levothyroxine 75 mcg tablet 75 mcg PO HS 12/13/20 06/11/21 History losartan 50 mg tablet 50 mg PO HS 12/13/20 06/11/21 History magnesium oxide 400 mg PO HS 12/13/20 06/11/21 History rizatriptan 5 mg tablet 5 mg PO DIRECTED PRN 12/13/20 06/11/21 History spironolactone 25 mg tablet 12.5 mg PO HS 12/13/20 06/11/21 History allopurinol 300 mg tablet 300 mg PO HS 03/05/21 06/11/21 History cholecalciferol (vitamin D3) 25 25 mcg PO HS 03/05/21 06/11/21 History mcg (1,000 unit) tablet digoxin 125 mcg (0.125 mg) tablet 125 mcg PO DAILY@199903/05/21 06/11/21 History epinephrine 0.3 mg/0.3 mL 0.3 mg IM Q4H PRN 03/05/21 06/11/21 History injection, auto-injector furosemide 40 mg tablet 20 mg PO QAM 03/05/21 06/11/21 History gabapentin 300 mg capsule 300 mg PO HS 03/05/21 06/11/21 History hydrocodone 5 mg-acetaminophen 325 1 tab PO Q6 PRN 03/05/21 06/11/21 History mg tablet insulin lispro 100 unit/mL 6 - 8 unit SUBCUT AC 06/11/21 06/11/21 History subcutaneous pen (Humalog KwikPen (U-100) Insulin) metoprolol succinate 200 mg 200 mg PO BID 06/11/21 06/11/21 History tablet,extended release 24 hr vitamins A,C,I-pvpi-mpjvdz 14,320 1 cap PO HS 06/11/21 06/11/21 History unit-226 mg-200 unit capsule (PreserVision AREDS) Past Med/Surg History Medical History Afib Cerebral hemorrhage "2010 left hemiparesis" Chronic anemia Chronic combined systolic and diastolic CHF (congestive heart failure) Diabetes mellitus, type II Gout Hematoma of rectus sheath Hemiplegia History of - cerebrovascular accident HLD (hyperlipidemia) HTN (hypertension) Hypothyroidism Pacemaker Presence of IVC filter Tachy-jodi syndrome Surgical History Status post appendectomy Status post cardiac pacemaker procedure Status post cataract extraction Status post cholecystectomy Status post hysterectomy Status post insertion of inferior vena caval filter Family History Daughter Breast cancer Mother Cancer pancreatic Father Heart disease Social History Smoking Status: Never smoker Second Hand Exposure: No; Hx Alcohol Use: No Hx Substance Use: No Preferred Language: Yemeni Communication Ability: Effective Mva Operator Required: No Beliefs That Will Affect Care: None Current Living Situation: Spouse Current Living Situation Comment: patient lives at home with , who is her primary caregiver Other Information That Helps Us Care for You: No Feels Safe at Home: Yes Safety Concerns: Feels Safe At This Time Assistive Devices: Glasses and Walker Review of Systems Review of Systems: As per HPI, all 10 systems reviewed, all other ROS negative Physical Exam Physical Exam: GENERAL: Slightly uncomfortable, frail, oriented to month and year, no respiratory distress SKIN: Pallor, warm HEENT: Pale palpebral conjunctivae, no ptosis, dry buccal mucosa NECK : Supple, no tenderness CHEST : CTA, no tenderness HEART : Irregular, tachycardic, no obvious murmurs ABDOMEN: Some distention, nontender EXTREMITIES : LLE erythema with ulcerated wound left lower leg with scant yellow drainage, no other conspicuous deformities noted NEUROLOGIC : Coherent, no facial asymmetry, mild hearing impairment, gait and stance not assessed Results & Data Results & Data ([facility]) Vital Signs (Past 12 Hours) Vital Signs Temp Pulse Pulse Resp BP BP Pulse Ox 06/11/21 22:00 92 H 20 138/79 98 06/11/21 20:04 82 91 H 20 136/92 95 06/11/21 19:38 37.0 C 97 H 18 122/84 98 Laboratory Results Laboratory Results WBC 6.00 K/uL (4.8-10.8) 06/12/21 05:41 RBC 3.31 M/uL (4.2-5.4) L 06/12/21 05:41 Hgb 10.3 g/dL (12.0-16.0) L 06/12/21 05:41 Hct 32.7 % (37-47) L 06/12/21 05:41 MCV 98.8 fL (80-100) 06/12/21 05:41 MCH 31.1 pg (25-34) 06/12/21 05:41 MCHC 31.5 g/dL (32-36) L 06/12/21 05:41 RDW Std Deviation 60.0 fL (36.4-46.3) H 06/12/21 05:41 RDW Coeff of [place] 16.6 % (11.5-14.5) H 06/12/21 05:41 Plt Count 129 K/uL (130-400) L 06/12/21 05:41 MPV 11.7 fL (7.4-10.4) H 06/12/21 05:41 Immature Gran % (Auto) 0.2 % 06/12/21 05:41 Neut % (Auto) 69.0 % 06/12/21 05:41 Lymph % (Auto) 16.3 % 06/12/21 05:41 Lamb % (Auto) 11.8 % 06/12/21 05:41 Eos % (Auto) 2.2 % 06/12/21 05:41 Baso % (Auto) 0.5 % 06/12/21 05:41 Neut # (Auto) 4.14 K/uL (1.4-6.5) 06/12/21 05:41 Lymph # (Auto) 0.98 K/uL (1.2-3.4) L 06/12/21 05:41 Lamb # (Auto) 0.71 K/uL (0.11-0.59) H 06/12/21 05:41 Eos # (Auto) 0.13 K/uL (0-0.5) 06/12/21 05:41 Baso # (Auto) 0.03 K/uL (0-0.2) 06/12/21 05:41 Immature Gran # (Auto) 0.01 K/uL (0.00-0.02) 06/12/21 05:41 ESR 67 mm/hr (0-30) H 06/11/21 19:58 PT 12.9 Seconds (9.0-12.0) H 06/11/21 19:58 INR 1.3 (0.9-1.1) H 06/11/21 19:58 APTT 25.3 Seconds (21.0-31.0) 06/11/21 19:58 PTT Ratio 1.0 06/11/21 19:58 VBG pH 7.35 (7.36-7.41) L 06/11/21 20:21 VBG pCO2 39 mmHg (38-50) 06/11/21 20:21 VBG pO2 27 mmHg 06/11/21 20:21 VBG HCO3 21 mmol/L 06/11/21 20:21 VBG O2 Saturation < 60.0 % 06/11/21 20:21 VBG Base Excess -4.3 mEq/L 06/11/21 20:21 Barometric Pressure 732.5 mm/Hg 06/11/21 20:21 Sodium 135 mmol/L (136-145) L 06/12/21 05:41 Potassium 3.9 mmol/L (3.5-5.1) 06/12/21 05:41 Chloride 109 mmol/L (98-107) H 06/12/21 05:41 Carbon Dioxide 19 mmol/L (21-32) L 06/12/21 05:41 Anion Gap 7 (3-11) 06/12/21 05:41 BUN 33 mg/dl (6-23) H 06/12/21 05:41 Creatinine 0.90 mg/dl (0.6-1.2) 06/12/21 05:41 Est Cr Clr Drug Dosing 40.1 ml/min 06/12/21 05:41 Est GFR ( Amer) 70.5 ml/min 06/12/21 05:41 Est GFR (Non-Af Amer) 60.8 ml/min 06/12/21 05:41 BUN/Creatinine Ratio 36.7 (10-20) H 06/12/21 05:41 Glucose 83 mg/dl (70-99(Fasting)) 06/12/21 05:41 POC Glucose 59 mg/dl (70-99) L* 06/12/21 07:34 Lactate 1.7 mmol/L (0.4-2.0) 06/11/21 20:21 Calcium 8.5 mg/dl (8.5-10.1) 06/12/21 05:41 Magnesium 2.0 mg/dl (1.7-2.4) 06/11/21 19:58 Total Bilirubin 0.9 mg/dl (0.2-1.0) 06/11/21 19:58 AST 19 U/L (13-39) 06/11/21 19:58 ALT 16 U/L (7-52) 06/11/21 19:58 Alkaline Phosphatase 100 U/L (34-104) 06/11/21 19:58 Ammonia 27.0 umol/L (18-72) 06/12/21 01:44 Total Creatine Kinase 84 U/L (26-192) 06/12/21 01:44 Troponin I 0.04 ng/ml (0-0.04) 06/12/21 01:44 C-Reactive Protein < 0.50 mg/dl (0-0.5) 06/11/21 19:58 Total Protein 7.9 gm/dl (6.0-8.3) 06/11/21 19:58 Albumin 4.2 gm/dl (3.4-5.0) 06/11/21 19:58 Globulin 3.7 gm/dl (2.5-4.0) 06/11/21 19:58 Albumin/Globulin Ratio 1.1 (0.9-2) 06/11/21 19:58 Procalcitonin 0.05 ng/ml (0-0.5) 06/11/21 19:58 TSH 4.372 uIu/ml (0.300-4.500) 06/11/21 19:58 Urine Color Yellow 06/12/21 03:20 Urine Appearance Clear (Clear) 06/12/21 03:20 Urine pH 5.0 (4.5-7.5) 06/12/21 03:20 Ur Specific [place] 1.028 (1.000-1.030) 06/12/21 03:20 Urine Protein 2+ (Negative) H 06/12/21 03:20 Urine Glucose (UA) 1+ (Negative) H 06/12/21 03:20 Urine Ketones Negative (Negative) 06/12/21 03:20 Urine Blood 1+ (Negative) H 06/12/21 03:20 Urine Nitrite Negative (Negative) 06/12/21 03:20 Urine Bilirubin Negative (Negative) 06/12/21 03:20 Urine Urobilinogen Negative (Negative) 06/12/21 03:20 Ur Leukocyte Esterase 1+ (Negative) H 06/12/21 03:20 Urine WBC (Auto) 10-30 /hpf (0-5) H 06/12/21 03:20 Urine RBC (Auto) 0-4 /hpf (0-4) 06/12/21 03:20 U Hyaline Cast (Auto) 1-5 /lpf (0-5) 06/12/21 03:20 U Epithel Cells (Auto) 10-20 /lpf (0-5) H 06/12/21 03:20 Urine Bacteria (Auto) Negative (Negative) 06/12/21 03:20 Urine Yeast Budding w/ Hyphae (None Prsent) A 06/12/21 03:20 Digoxin < 0.3 ng/ml (0.8-2.0) L 06/11/21 20:21 SARS-CoV-2, RNA, NAAT NEGATIVE (NEGATIVE) 06/11/21 20:04 Impressions Chest X-Ray 06/11/21 19:49 XR chest 1V portable CLINICAL HISTORY: weakness TECHNIQUE: Single frontal radiograph of the chest was obtained. Comparison: Comparison is made to chest one view 03/10/2021 FINDINGS: No lines and tubes are seen. Cardiomegaly is noted. Calcified aortic knob is seen. The lungs are clear. No evidence of pleural effusion or pneumothorax. IMPRESSION: No acute chest disease. Cardiomegaly is noted. ACT 112: Negative or not required by law. Electronically signed by: Parminder Odom M.D. 06/11/2021 9:07 PM Abdomen/Pelvis CT 06/11/21 19:59 CT abd pelvis wo con CLINICAL HISTORY: pain TECHNIQUE: Helical axial images of the abdomen and pelvis were obtained. Automated dose lowering techniques and/or adjustment according to patient size were utilized for this exam. This exam was performed without intravenous contrast. COMPARISON: Comparison is made to CT pelvis 07/13/[address] abdomen pelvis 04/16/2014 FINDINGS: Lower chest: Partial visualization of marked cardiomegaly. Atelectasis versus scarring is seen in the lung bases. Liver: Nodular contour of the liver is seen compatible with cirrhosis. Gallbladder and biliary tree: Patient is status post cholecystectomy. No intra- or extrahepatic biliary ductal dilation. Pancreas: Unremarkable, no focal lesions. Spleen: Multiple hypodensities are seen in the spleen. These are favored to represent cysts. Adrenals: Unremarkable. Kidneys and ureters: Nonobstructive nephrolithiasis is seen. Bladder: Unremarkable. Reproductive organs: Patient is status post hysterectomy. Bowel: Diverticulosis is seen without evidence of diverticulitis. Lymph nodes Retroperitoneal: Multiple enlarged lymph nodes are seen measuring up to 11 mm in short axis Mesenteric: Unremarkable. Pelvic: Unremarkable. Peritoneum: There is a trace amount of peritoneal fluid about the hepatic dome and spleen. Vessels: The abdominal aorta measures up to 26 mm in diameter. There is extensive atherosclerotic disease. IVC filter is incidentally noted. Abdominal wall: Unremarkable. Bones: Degenerative changes in the visualized spine. A medullary [place] is seen in the left femur. IMPRESSION: No acute abnormalities. Cirrhosis, diverticulosis, atherosclerotic changes are seen. There is trace ascites which is nonspecific. ACT 112: Negative or not required by law. Electronically signed by: Parminder Odom M.D. 06/11/2021 9:[address] 06/11/21 19:59 CT head/brain wo con CLINICAL HISTORY: ams Technique: Contiguous axial CT images of the head were acquired from the base of the skull to the vertex without intravenous contrast administration. Images were viewed in brain, subdural and bone windows. Automated dose lowering techniques and/or adjustment according to patient size were utilized for this exam. Comparison: Comparison is made to CT head 03/21/2021 Findings: Areas of decreased attenuation are present in the periventricular and subcortical white matter bilaterally consistent with small vessel ischemic disease. Generalized cerebral atrophy with commensurate enlargement of the ventricles, sulci, and cisterns is also present. There is no acute intracranial hemorrhage or evidence of acute territorial infarction. No shift of the midline structures, mass effect, or extra-axial abnormalities are shown. Atherosclerotic calcifications are present in the intracranial segments of the internal carotid arteries. Imaged portions of the paranasal sinuses and mastoid air cells are clear. The orbits appear normal. There are no acute fractures of the calvaria or scalp swelling. Soft tissue density in the frontal scalp may represent sebaceous cyst. Impression: No acute intracranial hemorrhage, no evidence of acute territorial infarction or other acute intracranial disease process. ACT 112: Negative or not required by law. Electronically signed by: Parminder Odom M.D. 06/11/2021 8:48 PM Venous Doppler Study 06/11/21 23:37 LEFT LOWER EXTREMITY VENOUS DOPPLER CLINICAL HISTORY: Left lower extremity swelling. COMPARISON STUDY: Left lower extremity venous Doppler ultrasound September 18, 2017. TECHNIQUE: Sonography of the deep venous system of the left lower extremity was performed. Compression and augmentation were evaluated. FINDINGS: The left common femoral, superficial femoral and popliteal veins were compressible. Augmentation was normal. Flow was shown within the deep calf vessels. Note is made of subcutaneous edema within the left popliteal fossa and left calf. IMPRESSION: No evidence of deep venous thrombus within the left lower extremity. ACT 112: Negative or not required by law. Electronically signed by: Jonathan Pederson M.D. 06/12/2021 7:03 AM Tibia/Fibula X-Ray 06/11/21 23:44 XR tibia fibula LT 2V CLINICAL HISTORY: LLE sweliing. COMPARISON STUDY: 03/07/2021 TECHNIQUE: AP and lateral left lower leg views views FINDINGS: Bones: The bones are osteopenic. The patient is again status post intramedullary ind[place] and screw fixation of the distal femur. There is no evidence for an acute fracture or dislocation. There is no lytic or blastic lesion. Joints: The joint spaces are maintained. The bones are in anatomic alignment. Soft tissues: There is no focal soft tissue abnormality. There is no radiopaque foreign body. IMPRESSION: 1. No acute osseous pathology. ACT 112: Negative or not required by law. Electronically signed by: Tomasz Mosqueda M.D. 06/12/2021 7:26 AM Diagnostic Findings EKG as per my interpretation rate 105, A. fib, LAD, LAFB, LBBB
[2021-06-11] MEDS ORDERED: METOPROLOL SUCC 25MG EXT REL TAB PO STA (23:38)
[2021-06-11] MEDS ORDERED: SODIUM CHLORIDE 0.9% 1000ML 1,000 ML IV ONE (23:48)
[2021-06-11] MEDS ORDERED: DOXYCYCLINE HYCLATE 100 MG in DEXTROSE 5% 100 ML IV ONE (23:50)
[2021-06-12] MEDS ORDERED: DEXTROSE 50% 50 ML SYRINGE IV PRN (00:58)
[2021-06-12] MEDS ORDERED: GLUCOSE 40% GEL 15 GM TUBE PO PRN (00:58)
[2021-06-12] MEDS ORDERED: GLUCAGON FOR INJ 1 MG VIAL SQ PRN (00:58)
[2021-06-12] MEDS ORDERED: CARBOHYDRATES FOR HYPOGLYCEMIA PO PRN (00:58)
[2021-06-12] MEDS ORDERED: GLUCOSE 10 TABS/TUBE PO PRN (00:58)
[2021-06-12] MEDS ORDERED: PROMETHAZINE HCL 6.25 MG in SODIUM CHLORIDE 0.9% 50 ML IV PRN (00:58)
[2021-06-12] MEDS: ACETAMINOPHEN 325 MG TAB PO PRN ×3 (01:19→11:42)
[2021-06-12] MEDS: INSULIN ASPART PER UNIT SC SCH ×5 (01:24→21:10)
[2021-06-12] MEDS ORDERED: oxyCODONE HCL IR 5 MG TAB (IMMEDIATE RELEASE) PO PRN (02:35)
[2021-06-12] MEDS ORDERED: KETOROLAC TROMETHAMINE 15 MG/ML VIAL IV ONE (02:35)
[2021-06-12 03:40] LABS: Appearance Urine Clear (Clear); Bacteria Urine Automated Negative (Negative); Bilirubin Urine Negative (Negative); Blood Urine 1+ (Negative); Color Urine Yellow; Glucose Urine UA 1+ (Negative); Ketones Urine Negative (Negative); Leukocyte Esterase Urine 1+ (Negative); Nitrite Urine Negative (Negative); Protein Urine 2+ (Negative); RBC Urine Automated 0-4 /hpf (0-4); Specific Gravity Urine 1.028 (1.000-1.030); Urobilinogen Urine Negative (Negative)
[2021-06-12] MEDS ORDERED: METOPROLOL SUCC 50MG EXT REL TAB PO SCH ×2 (04:35→09:00)
[2021-06-12] MEDS ORDERED: traMADol HCL 50 MG TABLET PO PRN (04:37)
[2021-06-12] MEDS ORDERED: CEFEPIME 2,000 MG in SYRINGE 0 ML IV ONE (05:00)
[2021-06-12 06:34] LABS: Basophils # (auto) 0.03 K/uL (0-0.2); Basophils % (auto) 0.5 %; Eosinophils # (auto) 0.13 K/uL (0-0.5); Eosinophils % (auto) 2.2 %; Hematocrit (blood only) 32.7 % (37-47); Hemoglobin 10.3 g/dL (12.0-16.0); Immature Granulocytes # (auto) 0.01 K/uL (0.00-0.02); Immature Granulocytes % (auto) 0.2 %; Lymphocytes # (auto) 0.98 K/uL (1.2-3.4); Lymphocytes % (auto) 16.3 %; Mean Corpuscular Hemoglobin 31.1 pg (25-34); Mean Corpuscular Hgb Conc 31.5 g/dL (32-36); Mean Corpuscular Volume 98.8 fL (80-100); Mean Platelet Volume 11.7 fL (7.4-10.4); Monocytes # (auto) 0.71 K/uL (0.11-0.59); Monocytes % (auto) 11.8 %; Neutrophils # (auto) 4.14 K/uL (1.4-6.5); Platelet Count 129 K/uL (130-400); RDW Coefficient of Variation 16.6 % (11.5-14.5); Red Blood Count 3.31 M/uL (4.2-5.4)
[2021-06-12 07:04] LABS: BUN Creatinine Ratio 36.7 (10-20); Calcium 8.5 mg/dl (8.5-10.1); Creatinine Clr Calc Pharmacy 40.1 ml/min; Est GFR (African American) 70.5 ml/min; Est GFR (Non-African American) 60.8 ml/min; Potassium 3.9 mmol/L (3.5-5.1)
--- NOTE | 2021-06-12 07:04 | Ultrasound Report ---
LEFT LOWER EXTREMITY VENOUS DOPPLER CLINICAL HISTORY: Left lower extremity swelling. COMPARISON STUDY: Left lower extremity venous Doppler ultrasound September 18, 2017. TECHNIQUE: Sonography of the deep venous system of the left lower extremity was performed. Compressi on and augmentation were evaluated. FINDINGS: The left common femoral, superficial femoral and popliteal veins were compressible. Augmen tation was normal. Flow was shown within the deep calf vessels. Note is made of subcutaneous edema wi thin the left popliteal fossa and left calf. IMPRESSION: No evidence of deep venous thrombus within the left lower extremity. ACT 112: Negative or not required by law. Electronically signed by: Jonathan Pederson M.D. 06/12/2021 7:03 AM
--- NOTE | 2021-06-12 07:27 | XRay Report ---
XR tibia fibula LT 2V CLINICAL HISTORY: LLE klever. COMPARISON STUDY: 03/07/2021 TECHNIQUE: AP and lateral left lower leg views views FINDINGS: Bones: The bones are osteopenic. The patient is again status post intramedullary [place] and screw fixati on of the distal femur. There is no evidence for an acute fracture or dislocation. There is no lytic or blastic lesion. Joints: The joint spaces are maintained. The bones are in anatomic alignment. Soft tissues: There is no focal soft tissue abnormality. There is no radiopaque foreign body. IMPRESSION: 1. No acute osseous pathology. ACT 112: Negative or not required by law. Electronically signed by: Tomasz Mosqueda M.D. 06/12/2021 7:26 AM
[2021-06-12 07:52] LABS: Estimated Average Glucose 286 mg/dl; Hemoglobin A1C 11.6 % (4.5-5.6)
[2021-06-12] MEDS ORDERED: PHARMACY GLYCEMIC MGMT CONSULT PRN (08:04)
[2021-06-12] MEDS ORDERED: INSULIN GLARGINE SOLOSTAR 100 UNITS/ML 3 ML PEN SQ SCH ×3 (09:00→21:00)
[2021-06-12] MEDS: DOXYCYCLINE HYCLATE 100 MG CAP PO SCH ×2 (09:10→20:58)
[2021-06-12] MEDS: METOPROLOL SUCC 50MG EXT REL TAB PO SCH ×2 (12:00→20:58)
--- NOTE | 2021-06-12 12:53 | Electrocardiogram Report ---
Test Reason : Blood Pressure : / mmHG Vent. Rate : 107 BPM Atrial Rate : 111 BPM P-R Int : 000 ms QRS Dur : 158 ms QT Int : 406 ms P-R-T Axes : 000 -27 154 degrees QTc Int : 542 ms Poor data quality, interpretation may be adversely affected Atrial fibrillation with rapid ventricular response Left bundle branch block Abnormal ECG When compared with ECG of 07-MAR-2021 05:48, Atrial fibrillation has replaced Electronic ventricular pacemaker Confirmed by Matthew Neely ([id number]) on 06/12/2021 12:52:44 PM Referred By: REFERRED SELF Confirmed By:Matthew Neely
--- NOTE | 2021-06-12 13:28 | Pharmacy Report ---
Pharmacy Glycemic Short Note 2 - Date of Service June 12, 2021 - Glycemic Short BSG Results (Last 24 hours): 06/11/21 06/11/21 06/11/21 19:53 19:58 21:00 Glucose 419 H* POC Glucose 446 H* 424 H* 06/11/21 06/12/21 06/12/21 22:43 01:12 05:41 Glucose 83 POC Glucose 399 H* 236 H 06/12/21 06/12/21 06/12/21 07:33 07:34 07:55 Glucose POC Glucose 59 L* 59 L* 78 06/12/21 11:19 Glucose POC Glucose 122 H OUTPATIENT ANTIDIABETIC REGIMEN: * Lantus 50 units qAM * Humalog 6-8 units with meals * HbA1C = 11.6% ASSESSMENT: * Ms Linton was admitted yesterday with confusion. Her BSG on admission was 424 mg/dL. She received 25 units of Lantus, 4 units of Novolog, and 6 units of IV insulin. * Fasting this morning was 59 mg/dL. Pharmacy consulted at this point. * Patient has a clear liquid diet ordered. * Based upon previous data, patient requires ~55 units of basal insulin with Novolog CF 20 CR 5-6. * For basal, even though patient was only given 25 units last night, she had a hypoglycemic event. Reduce basal by 20% to 20 units daily. * Will tighten CR to prevent hyperglycemia. PLAN FOR INPATIENT GLYCEMIC CONTROL: * Basal insulin * Lantus 20 units SQ HS * Bolus insulin * NovoLog per scale ACHS or Q6hrs while NPO * Goal Range: Low 110 mg/dL - High 140 mg/dL * Correction Factor: 25 mg/dL/unit * Nutritional / Prandial insulin per carb ratio of 1 unit per 7 grams CHO consumed PLAN FOR DISCHARGE: * TBD
[2021-06-12] MEDS: HYDROCODONE/ACETAMOPHEN 5/325MG TAB PO PRN (14:22)
--- NOTE | 2021-06-12 15:48 | Hospitalist Progress Note ---
Date of Service June 12, 2021 Assessment & Plan (1) Encephalopathy: Plan: Acute Metabolic Encephalopathy Likely Multifactorial:Infection, Hyperglycemia, medications --CXR:No acute chest disease. Cardiomegaly is noted. --CT ABD:No acute abnormalities. Cirrhosis, diverticulosis, atherosclerotic changes are seen. There is trace ascites which is nonspecific. --CT head:No acute intracranial hemorrhage, no evidence of acute territorial infarction or other acute intracranial disease process. --Mental status back to baseline Left Leg Cellulitis --Venous Doppler:No evidence of deep venous thrombus within the left lower extremity. --Tibia/Fibula X ray:No acute osseous pathology. Blood culture pending Wound culture growing gram-negative bacilli, staph species Continue wound care Continue doxycycline, cefepime Abnormal urine analysis Rule out UTI Urine culture pending Continue antibiotics as above A. fib RVR SSS S/P PM Heart rate fairly controlled Continue digoxin, metoprolol Currently not on anticoagulation due to H/O frequent falls/rectus sheath hematoma/subarachnoid hemorrhage DM II Uncontrolled HbA1c 7.6 Continue insulin therapy while hospitalized Monitor blood glucose levels Troponin elevation Type II due to tachycardia Troponin trended down Patient denies any chest pain, dyspnea Chronic diastolic heart failure EF 55% to 59%, TTE 2020 Monitor volume status Resume home diuretics as able Hypothyroidism Continue levothyroxine Hypertension stable Chronic anemia Hb at baseline Monitor CBC DVT Px: SCDs Re:H/O ICH Code Status Full code Admission and Anticipated Discharge Date Admission Date: June 11, 2021 Subjective Patient is seen and examined at bedside Oriented x3 during my encounter States having left lower extremity pain and erythema Offers no other complaints Denies any chest pain, shortness of breath, dizziness, nausea, abdominal pain, dysuria Review of Systems Review of Systems: All systems reviewed & are unremarkable except as noted in Subjective Physical Exam Physical Exam: Physical Exam: Vitals signs as noted above General Appearance:Elderly, Chronic ill appearing, no apparent distress Head: normocephalic, Atraumatic Eyes: normal inspection, EOMI Neck: supple, Trachea midline Respiratory/Chest: Normal breath sounds, basal crackles, No accessory muscle use Cardiovascular: Irregularly Irregular, +Tachycardia Abdomen/GI:Soft, Non tender, Bowel sounds present Extremities/Musculoskeletal:normal inspection,LLE erythema, +wound, edema Neurologic/Psych:AAOX3, grossly no focal neurological deficits Skin: normal color, warm Results & Data Results & Data ([facility]) Vital Signs (Past 12 Hours) Vital Signs Temp Pulse Pulse Resp BP BP Pulse Ox 06/12/21 14:57 36.4 C L 92 H 20 115/69 98 06/12/21 11:00 36.4 C L 92 H 18 114/82 97 06/12/21 07:15 36.4 C L 94 H 17 118/72 94 06/12/21 04:27 36.4 C L 113 H 18 123/85 96 Laboratory Results Short CBC 06/11/21 06/12/21 Range/Units 19:58 05:41 WBC 6.96 6.00 (4.8-10.8) K/uL Hgb 11.2 L 10.3 L (12.0-16.0) g/dL Hct 35.1 L 32.7 L (37-47) % Plt Count 146 129 L (130-400) K/uL BMP 06/11/21 06/12/21 19:58 05:41 Sodium 132 L 135 L Potassium 4.6 3.9 Chloride 103 109 H Carbon Dioxide 19 L 19 L BUN 37 H 33 H Creatinine 1.16 0.90 Glucose 419 H* 83 Calcium 9.1 8.5 Cardiac Enzymes 06/11/21 06/12/21 06/12/21 Range/Units 19:58 01:44 01:44 Total Creatine Kinase 84 (26-192) U/L Troponin I 0.05 H* 0.04 (0-0.04) ng/ml Liver Function 06/11/21 Range/Units 19:58 Total Bilirubin 0.9 (0.2-1.0) mg/dl AST 19 (13-39) U/L ALT 16 (7-52) U/L Alkaline Phosphatase 100 (34-104) U/L Albumin 4.2 (3.4-5.0) gm/dl Urine 06/12/21 Range/Units 03:20 Urine Color Yellow Urine Appearance Clear (Clear) Urine pH 5.0 (4.5-7.5) Ur Specific [place] 1.028 (1.000-1.030) Urine Protein 2+ H (Negative) Urine Glucose (UA) 1+ H (Negative)
[2021-06-12] MEDS: CEFEPIME 1,000 MG in SYRINGE 0 ML IV SCH (18:02)
[2021-06-12] MEDS: LEVOTHYROXINE SODIUM 75 MCG TABLET PO SCH (20:58)
[2021-06-12] MEDS: allopurinoL 300 MG TAB PO SCH (20:59)
[2021-06-12] MEDS: LOSARTAN POTASSIUM 50 MG TAB PO SCH (20:59)
[2021-06-12] MEDS: DIGOXIN 0.125 MG TAB PO SCH (20:59)
[2021-06-12] MEDS: ATORVASTATIN 40 MG TAB PO SCH (21:00)
[2021-06-12] MEDS: GABAPENTIN 300 MG CAP PO SCH (22:13)
[2021-06-13] MEDS: HYDROCODONE/ACETAMOPHEN 5/325MG TAB PO PRN (01:09)
[2021-06-13] MEDS: CEFEPIME 1,000 MG in SYRINGE 0 ML IV SCH (05:11)
[2021-06-13 06:41] LABS: Hematocrit (blood only) 31.9 % (37-47); Hemoglobin 10.3 g/dL (12.0-16.0); Mean Corpuscular Hgb Conc 32.3 g/dL (32-36); Mean Corpuscular Volume 99.1 fL (80-100); Platelet Count 119 K/uL (130-400); RDW Coefficient of Variation 16.8 % (11.5-14.5); RDW Standard Deviation 60.6 fL (36.4-46.3); Red Blood Count 3.22 M/uL (4.2-5.4); White Blood Count 7.49 K/uL (4.8-10.8)
[2021-06-13 07:09] LABS: BUN Creatinine Ratio 39.7 (10-20); Calcium 7.9 mg/dl (8.5-10.1); Creatinine Clr Calc Pharmacy 46.3 ml/min; Est GFR (African American) 83.8 ml/min; Est GFR (Non-African American) 72.3 ml/min; Magnesium 1.8 mg/dl (1.7-2.4)
[2021-06-13] MEDS: METOPROLOL SUCC 50MG EXT REL TAB PO SCH ×2 (09:45→20:32)
[2021-06-13] MEDS: DOXYCYCLINE HYCLATE 100 MG CAP PO SCH ×2 (09:46→20:33)
[2021-06-13] MEDS: INSULIN ASPART PER UNIT SC SCH ×3 (12:26→21:01)
--- NOTE | 2021-06-13 13:39 | Pharmacy Report ---
Pharmacy Glycemic Short Note 2 - Date of Service June 13, 2021 - Glycemic Short BSG Results (Last 24 hours): 06/12/21 06/12/21 06/12/21 16:49 16:51 17:21 Glucose POC Glucose 56 L* 59 L* 63 L* 06/12/21 06/12/21 06/13/21 17:47 20:11 05:37 Glucose 67 L POC Glucose 110 H 185 H 06/13/21 06/13/21 06/13/21 07:33 07:34 07:49 Glucose POC Glucose 60 L* 57 L* 64 L* 06/13/21 06/13/21 08:17 11:23 Glucose POC Glucose 80 128 H OUTPATIENT ANTIDIABETIC REGIMEN: * Lantus 50 units qAM * Humalog 6-8 units with meals * HbA1C = 11.6% ASSESSMENT: 06/13/21 * Patient's BSGs yesterday were 59 --> 78-122- 59 -->63- 185 mg/dL. * Patient received 26 units of insulin yesterday (20 units of basal and 6 units of bolus). * Fasting today is 67 mg/dL. * Will decrease Lantus by half to 10 units. * Loosen Novolog significantly. Background * Ms Linton was admitted yesterday with confusion. Her BSG on admission was 424 mg/dL. She received 25 units of Lantus, 4 units of Novolog, and 6 units of IV insulin. * Fasting this morning was 59 mg/dL. Pharmacy consulted at this point. * Patient has a clear liquid diet ordered. * Based upon previous data, patient requires ~55 units of basal insulin with Novolog CF 20 CR 5-6. * For basal, even though patient was only given 25 units last night, she had a hypoglycemic event. Reduce basal by 20% to 20 units daily. * Will tighten CR to prevent hyperglycemia. PLAN FOR INPATIENT GLYCEMIC CONTROL: * Basal insulin * Lantus 10 units SQ HS * Bolus insulin * NovoLog per scale ACHS or Q6hrs while NPO * Goal Range: Low 110 mg/dL - High 140 mg/dL * Correction Factor: 30 mg/dL/unit * Nutritional / Prandial insulin per carb ratio of 1 unit per 10 grams CHO consumed PLAN FOR DISCHARGE: * TBD
--- NOTE | 2021-06-13 17:11 | Hospitalist Progress Note ---
Date of Service June 13, 2021 Assessment & Plan (1) Encephalopathy: Plan: Acute Metabolic Encephalopathy Likely Multifactorial:Infection, Hyperglycemia, medications --CXR:No acute chest disease. Cardiomegaly is noted. --CT ABD:No acute abnormalities. Cirrhosis, diverticulosis, atherosclerotic changes are seen. There is trace ascites which is nonspecific. --CT head:No acute intracranial hemorrhage, no evidence of acute territorial infarction or other acute intracranial disease process. --Mental status back to baseline Left Leg Cellulitis --Venous Doppler:No evidence of deep venous thrombus within the left lower extremity. --Tibia/Fibula X ray:No acute osseous pathology. Blood culture: No growth to date Wound culture: Enterobacter, staph species Continue wound care Continue doxycycline, cefepime>> doxycycline, ceftriaxone Abnormal urine analysis Rule out UTI Urine culture pending Continue antibiotics as above A. fib RVR SSS S/P PM Demand ischemia, resolved: in setting of Chronic troponin elevation, tachycardia Heart rate fairly controlled Continue digoxin, metoprolol Currently not on anticoagulation due to H/O frequent falls/rectus sheath hematoma/subarachnoid hemorrhage DM II Uncontrolled HbA1c 7.6 Continue insulin therapy while hospitalized Monitor blood glucose levels Troponin elevation Type II due to tachycardia Troponin trended down Patient denies any chest pain, dyspnea Chronic diastolic heart failure EF 55% to 59%, TTE 2020 Monitor volume status Resume home diuretics as able Hypothyroidism Continue levothyroxine Hypertension stable Chronic anemia Hb at baseline Monitor CBC DVT Px: SCDs Re:H/O ICH Code Status Full code Admission and Anticipated Discharge Date Admission Date: June 11, 2021 Subjective Patient is seen and examined at bedside States feeling better today Leg pain is controlled Denies any chest pain, shortness of breath, dizziness, nausea, abdominal pain, dysuria Offers no other complaints Review of Systems Review of Systems: All systems reviewed & are unremarkable except as noted in Subjective Physical Exam Physical Exam: Physical Exam: Vitals signs as noted above General Appearance:Elderly, Chronic ill appearing, no apparent distress Head: normocephalic, Atraumatic Eyes: normal inspection, EOMI Neck: supple, Trachea midline Respiratory/Chest: Normal breath sounds, No accessory muscle use Cardiovascular: Irregularly Irregular Abdomen/GI:Soft, Non tender, Bowel sounds present Extremities/Musculoskeletal:normal inspection,LLE erythema, +wound, edema Neurologic/Psych:AAOX3, grossly no focal neurological deficits Skin: normal color, warm Results & Data Results & Data ([facility]) Vital Signs (Past 12 Hours) Vital Signs Temp Pulse Pulse Resp BP Pulse Ox 06/13/21 15:07 36.6 C 80 20 119/79 95 06/13/21 14:17 89 06/13/21 11:14 36.4 C L 90 20 118/90 96 06/13/21 07:57 36.7 C 100 H 20 113/75 96 06/13/21 06:21 101 H Laboratory Results Short CBC 06/13/21 Range/Units 05:37 WBC 7.49 (4.8-10.8) K/uL Hgb 10.3 L (12.0-16.0) g/dL Hct 31.9 L (37-47) % Plt Count 119 L (130-400) K/uL BMP 06/13/21 05:37 Sodium 134 L Potassium 4.0 Chloride 110 H Carbon Dioxide 19 L BUN 31 H Creatinine 0.78 Glucose 67 L Calcium 7.9 L
[2021-06-13] MEDS: cefTRIAXone SODIUM 1,000 MG in DEXTROSE 5% 50 ML IV SCH (17:45)
[2021-06-13] MEDS: ACETAMINOPHEN 325 MG TAB PO PRN (18:36)
[2021-06-13] MEDS: LOSARTAN POTASSIUM 50 MG TAB PO SCH (20:32)
[2021-06-13] MEDS: GABAPENTIN 300 MG CAP PO SCH (20:33)
[2021-06-13] MEDS: LEVOTHYROXINE SODIUM 75 MCG TABLET PO SCH (20:33)
[2021-06-13] MEDS: DIGOXIN 0.125 MG TAB PO SCH (20:34)
[2021-06-13] MEDS: ATORVASTATIN 40 MG TAB PO SCH (20:34)
[2021-06-13] MEDS: allopurinoL 300 MG TAB PO SCH (20:35)
[2021-06-13] MEDS ORDERED: INSULIN GLARGINE SOLOSTAR 100 UNITS/ML 3 ML PEN SQ SCH (21:00)
[2021-06-13] MEDS ORDERED: INSULIN GLARGINE SOLOSTAR 100 UNITS/ML 3 ML PEN SC SCH (21:00)
[2021-06-14 07:33] LABS: Hematocrit (blood only) 32.1 % (37-47); Hemoglobin 10.2 g/dL (12.0-16.0); Mean Corpuscular Hemoglobin 31.5 pg (25-34); Mean Corpuscular Hgb Conc 31.8 g/dL (32-36); Mean Corpuscular Volume 99.1 fL (80-100); Mean Platelet Volume 10.8 fL (7.4-10.4); Platelet Count 133 K/uL (130-400); RDW Coefficient of Variation 17.1 % (11.5-14.5); RDW Standard Deviation 62.1 fL (36.4-46.3); Red Blood Count 3.24 M/uL (4.2-5.4); White Blood Count 5.81 K/uL (4.8-10.8)
[2021-06-14 08:19] LABS: BUN Creatinine Ratio 38.4 (10-20); Est GFR (African American) 74.5 ml/min; Est GFR (Non-African American) 64.3 ml/min; Potassium 4.6 mmol/L (3.5-5.1)
[2021-06-14] MEDS: INSULIN ASPART PER UNIT SC SCH ×4 (08:39→21:05)
[2021-06-14] MEDS: METOPROLOL SUCC 50MG EXT REL TAB PO SCH ×2 (08:40→21:02)
[2021-06-14] MEDS: DOXYCYCLINE HYCLATE 100 MG CAP PO SCH (08:40)
[2021-06-14] MEDS: ACETAMINOPHEN 325 MG TAB PO PRN ×3 (12:08→22:27)
--- NOTE | 2021-06-14 15:31 | Hospitalist Progress Note ---
Date of Service June 14, 2021 Assessment & Plan (1) Encephalopathy: Plan: per Dr. Sebastian's notes with addendum: Acute Metabolic Encephalopathy Likely Multifactorial:Infection, Hyperglycemia, medications --CXR:No acute chest disease. Cardiomegaly is noted. --CT ABD:No acute abnormalities. Cirrhosis, diverticulosis, atherosclerotic changes are seen. There is trace ascites which is nonspecific. --CT head:No acute intracranial hemorrhage, no evidence of acute territorial infarction or other acute intracranial disease process. --Mental status back to baseline Left Leg Cellulitis --Venous Doppler:No evidence of deep venous thrombus within the left lower extremity. --Tibia/Fibula X ray:No acute osseous pathology. Blood culture: No growth to date Wound culture: Enterobacter, MSSA slowly improving continue Ceftri + Augmentin Candiduria Urine culture: (+) Vivienne > 100k no urinary symptoms treatment not indicated A. fib RVR SSS S/P PM Demand ischemia, resolved: in setting of Chronic troponin elevation, tachycardia Heart rate controlled Continue digoxin, metoprolol Currently not on anticoagulation due to H/O frequent falls/rectus sheath hematoma/subarachnoid hemorrhage DM II Uncontrolled HbA1c 7.6 Continue insulin therapy while hospitalized BSG 173 Troponin elevation Type II due to tachycardia Troponin trended down no cardiac symptoms Chronic diastolic heart failure EF 55% to 59%, TTE 2020 resume Lasix 20mg daily and Aldactone 12.5mg HS Hypothyroidism Continue levothyroxine Hypertension stable Chronic anemia Hb at baseline Monitor CBC DVT Px: SCDs Re:H/O ICH Code Status Full code plan of care discussed with patient and her son in detail and at length all questions answered they are understanding, agreeable, comfortable with the plan of care Admission and Anticipated Discharge Date Admission Date: June 11, 2021 Subjective ff up for metabolic encephalopathy, leg wound and cellulitis, etc seen resting in bed, comfortable oriented x 3, answering all questions appropriately has mild pain over the left lower leg no chest pain, dyspnea, palpitations, dizziness no fever/chills denies urinary symptoms no other symptoms Review of Systems Review of Systems: all noted and negative except for above Physical Exam Physical Exam: General- oriented x 3, not in distress, speaks in sentences with no effort or accessory muscle use Eyes- anicteric Neck- no JVD Lungs- clear breath sounds bilaterally, no rales/wheezes Heart- normal rate, regular rhythm; no murmurs Abdomen- normal bowel sounds, nondistended, soft, nontender Extremities- left lower leg: (+) small wound, no bleeding, has scant yellow discharge with surrounding erythema, warmth, tenderness- mild R lower leg: essentially normal Neuro- alert, oriented x 2; no gross focal neurologic deficits Skin- warm & dry Results & Data Results & Data ([facility]) Vital Signs (Past 12 Hours) Vital Signs Temp Pulse Pulse Resp BP Pulse Ox 06/14/21 14:57 36.7 C 79 18 123/69 94 06/14/21 11:12 36.4 C L 82 18 118/79 96 06/14/21 07:17 36.5 C 61 18 122/73 95 06/14/21 04:18 36.6 C 106 H 82 18 121/71 95 all noted and reviewed including below
[2021-06-14] MEDS: AMOXICILLIN/CLAVULANATE 875 MG TAB PO SCH (17:28)
[2021-06-14] MEDS: ADVANCED PROBIOTIC 1250 MG CAPSULE PO SCH (17:45)
[2021-06-14] MEDS: FUROSEMIDE 20 MG TAB PO SCH (18:14)
[2021-06-14] MEDS: cefTRIAXone SODIUM 1,000 MG in DEXTROSE 5% 50 ML IV SCH (18:15)
[2021-06-14] MEDS ORDERED: INSULIN GLARGINE SOLOSTAR 100 UNITS/ML 3 ML PEN SC SCH (21:00)
[2021-06-14] MEDS: DIGOXIN 0.125 MG TAB PO SCH (21:00)
[2021-06-14] MEDS: SPIRONOLACTONE 12.5 MG TAB PO SCH (21:01)
[2021-06-14] MEDS: ATORVASTATIN 40 MG TAB PO SCH (21:02)
[2021-06-14] MEDS: GABAPENTIN 300 MG CAP PO SCH (21:02)
[2021-06-14] MEDS: MAGNESIUM OXIDE 400 MG TAB PO SCH (21:03)
[2021-06-14] MEDS: allopurinoL 300 MG TAB PO SCH (21:03)
[2021-06-14] MEDS: LOSARTAN POTASSIUM 50 MG TAB PO SCH (21:04)
[2021-06-14] MEDS: LEVOTHYROXINE SODIUM 75 MCG TABLET PO SCH (21:04)
[2021-06-15 07:13] LABS: BUN Creatinine Ratio 47.1 (10-20); Calcium 8.4 mg/dl (8.5-10.1); Creatinine Clr Calc Pharmacy 42.4 ml/min; Est GFR (African American) 75.5 ml/min; Est GFR (Non-African American) 65.2 ml/min; Potassium 4.5 mmol/L (3.5-5.1)
[2021-06-15] MEDS: INSULIN ASPART PER UNIT SC SCH ×4 (08:14→21:24)
[2021-06-15] MEDS: AMOXICILLIN/CLAVULANATE 875 MG TAB PO SCH ×2 (08:18→16:06)
[2021-06-15] MEDS: FUROSEMIDE 20 MG TAB PO SCH (08:21)
[2021-06-15] MEDS: METOPROLOL SUCC 50MG EXT REL TAB PO SCH ×2 (08:30→20:21)
[2021-06-15] MEDS: INSULIN GLARGINE SOLOSTAR 100 UNITS/ML 3 ML PEN SC SCH (08:30)
[2021-06-15] MEDS: ADVANCED PROBIOTIC 1250 MG CAPSULE PO SCH (08:32)
--- NOTE | 2021-06-15 15:11 | Pharmacy Report ---
Pharmacy Glycemic Short Note 2 - Date of Service June 15, 2021 - Glycemic Short BSG Results (Last 24 hours): 06/14/21 06/14/21 06/15/21 16:35 20:11 06:37 Glucose 224 H POC Glucose 173 H 222 H 06/15/21 06/15/21 07:37 11:07 Glucose POC Glucose 221 H 206 H OUTPATIENT ANTIDIABETIC REGIMEN: * Lantus 50 units qAM * Humalog 6-8 units with meals * HbA1C = 11.6% ASSESSMENT: 06/15/21: * Ms Linton's BSGs have been labile during admission. Pt has been hyperglycemic for the past ~24 hours. * Lantus increased today and shifted back to qAM dosing for ease of discharge planning. * Novolog parameters were also tightened this morning. * Will cautiously work toward improving glycemic control in the setting of recent hypoglycemic events. Pt's diet appears to be improving, which should help. 06/13 * Patient's BSGs yesterday were 59 --> 78-122- 59 -->63- 185 mg/dL. * Patient received 26 units of insulin yesterday (20 units of basal and 6 units of bolus). * Fasting today is 67 mg/dL. * Will decrease Lantus by half to 10 units. * Loosen Novolog significantly. Background * Ms Linton was admitted yesterday with confusion. Her BSG on admission was 424 mg/dL. She received 25 units of Lantus, 4 units of Novolog, and 6 units of IV insulin. * Fasting this morning was 59 mg/dL. Pharmacy consulted at this point. * Patient has a clear liquid diet ordered. * Based upon previous data, patient requires ~55 units of basal insulin with Novolog CF 20 CR 5-6. * For basal, even though patient was only given 25 units last night, she had a hypoglycemic event. Reduce basal by 20% to 20 units daily. * Will tighten CR to prevent hyperglycemia. PLAN FOR INPATIENT GLYCEMIC CONTROL: * Basal insulin * Lantus 10 units SQ this morning, plus 5 units this afternoon * Bolus insulin * NovoLog per scale ACHS or Q6hrs while NPO * Goal Range: Low 110 mg/dL - High 140 mg/dL * Correction Factor: 25 mg/dL/unit * Nutritional / Prandial insulin per carb ratio of 1 unit per 8 grams CHO consumed PLAN FOR DISCHARGE: * TBD
[2021-06-15] MEDS ORDERED: INSULIN GLARGINE SOLOSTAR 100 UNITS/ML 3 ML PEN SC ONE (15:15)
[2021-06-15] MEDS: ACETAMINOPHEN 325 MG TAB PO PRN ×2 (16:10→22:44)
[2021-06-15] MEDS: cefTRIAXone SODIUM 1,000 MG in DEXTROSE 5% 50 ML IV SCH (17:38)
--- NOTE | 2021-06-15 18:13 | Hospitalist Progress Note ---
Date of Service June 15, 2021 Assessment & Plan (1) Encephalopathy: Plan: per Dr. Sebastian's notes with addendum: Acute Metabolic Encephalopathy Likely Multifactorial:Infection, Hyperglycemia, medications --CXR:No acute chest disease. Cardiomegaly is noted. --CT ABD:No acute abnormalities. Cirrhosis, diverticulosis, atherosclerotic changes are seen. There is trace ascites which is nonspecific. --CT head:No acute intracranial hemorrhage, no evidence of acute territorial infarction or other acute intracranial disease process. --Mental status back to baseline Left Leg Cellulitis --Venous Doppler:No evidence of deep venous thrombus within the left lower extremity. --Tibia/Fibula X ray:No acute osseous pathology. Blood culture: No growth to date Wound culture: Enterobacter, MSSA improving continue Ceftri + Augmentin Candiduria Urine culture: (+) Vivienne > 100k no urinary symptoms treatment not indicated A. fib RVR SSS S/P PM Demand ischemia, resolved: in setting of Chronic troponin elevation, tachycardia Heart rate controlled Continue digoxin, metoprolol Currently not on anticoagulation due to H/O frequent falls/rectus sheath hematoma/subarachnoid hemorrhage DM II Uncontrolled HbA1c 7.6 Continue insulin therapy while hospitalized Troponin elevation Type II due to tachycardia Troponin trended down no cardiac symptoms Chronic diastolic heart failure EF 55% to 59%, TTE 2020 continue Lasix 20mg daily and Aldactone 12.5mg HS Hypothyroidism Continue levothyroxine Hypertension stable Chronic anemia Hb at baseline Monitor CBC DVT Px: SCDs Re:H/O ICH Code Status Full code Disposition possible d/c home vs SNF in 1-2 days Admission and Anticipated Discharge Date Admission Date: June 11, 2021 Subjective Follow-up for encephalopathy, left leg wound infection, cellulitis, etc. Seen resting in bed, sleeping but easily awakened Oriented x3, answers all questions appropriately States she feels improved today other than yesterday Left lower leg pain slightly improving Denies chest pain, shortness of breath, palpitations No other symptoms Review of Systems Review of Systems: all noted and negative except for above Physical Exam Physical Exam: General- oriented x 3, not in distress, speaks in sentences with no effort or accessory muscle use Eyes- anicteric Neck- no JVD Lungs-very mild rales at the bases, no wheezing Good air entry bilaterally Heart- normal rate, regular rhythm; no murmurs Abdomen- normal bowel sounds, nondistended, soft, nontender Extremities-right lower extremity: No pretibial edema, no calf tenderness Left lower ext: Small wound, healing well, less surrounding erythema, less edema, less warmth and tenderness text Neuro- alert, oriented x 3; no gross focal neurologic deficits Skin- warm & dry Results & Data Results & Data ([facility]) Vital Signs (Past 12 Hours) Vital Signs Temp Pulse Pulse Resp BP Pulse Ox 06/15/21 14:58 36.7 C 79 18 130/73 97 06/15/21 11:00 36.5 C 71 20 122/73 96 06/15/21 07:29 36.3 C L 65 20 115/70 96 06/15/21 07:15 79 all noted and reviewed including below
[2021-06-15] MEDS: SPIRONOLACTONE 12.5 MG TAB PO SCH (20:17)
[2021-06-15] MEDS: allopurinoL 300 MG TAB PO SCH (20:18)
[2021-06-15] MEDS: ATORVASTATIN 40 MG TAB PO SCH (20:18)
[2021-06-15] MEDS: GABAPENTIN 300 MG CAP PO SCH (20:19)
[2021-06-15] MEDS: LOSARTAN POTASSIUM 50 MG TAB PO SCH (20:21)
[2021-06-15] MEDS: DIGOXIN 0.125 MG TAB PO SCH (20:21)
[2021-06-15] MEDS: LEVOTHYROXINE SODIUM 75 MCG TABLET PO SCH (20:22)
[2021-06-15] MEDS: MAGNESIUM OXIDE 400 MG TAB PO SCH (21:24)
[2021-06-16] MEDS: HYDROCODONE/ACETAMOPHEN 5/325MG TAB PO PRN (03:38)
[2021-06-16] MEDS: METOPROLOL SUCC 50MG EXT REL TAB PO SCH (08:02)
[2021-06-16] MEDS: FUROSEMIDE 20 MG TAB PO SCH (08:03)
[2021-06-16] MEDS: INSULIN GLARGINE SOLOSTAR 100 UNITS/ML 3 ML PEN SC SCH (08:03)
[2021-06-16] MEDS: AMOXICILLIN/CLAVULANATE 875 MG TAB PO SCH (08:03)
[2021-06-16] MEDS: ADVANCED PROBIOTIC 1250 MG CAPSULE PO SCH (08:03)
[2021-06-16] MEDS: INSULIN ASPART PER UNIT SC SCH ×2 (08:07→12:44)
[2021-06-16] MEDS ORDERED: INSULIN GLARGINE SOLOSTAR 100 UNITS/ML 3 ML PEN SC ONE (08:30)
--- NOTE | 2021-06-16 11:20 | Pharmacy Report ---
Pharmacy Glycemic Short Note 2 - Date of Service June 16, 2021 - Glycemic Short BSG Results (Last 24 hours): 06/15/21 06/15/21 06/16/21 16:45 20:36 07:50 POC Glucose 177 H 131 H 161 H OUTPATIENT ANTIDIABETIC REGIMEN: * Lantus 50 units qAM * Humalog 6-8 units with meals * HbA1C = 11.6% ASSESSMENT: 06/16/21: * Fasting BSG improving after changes implemented yesterday. * Will continue to adjust as needed. 06/15 * Ms Linton's BSGs have been labile during admission. Pt has been hyperglycemic for the past ~24 hours. * Lantus increased today and shifted back to qAM dosing for ease of discharge planning. * Novolog parameters were also tightened this morning. * Will cautiously work toward improving glycemic control in the setting of recent hypoglycemic events. Pt's diet appears to be improving, which should help. 06/13 * Patient's BSGs yesterday were 59 --> 78-122- 59 -->63- 185 mg/dL. * Patient received 26 units of insulin yesterday (20 units of basal and 6 units of bolus). * Fasting today is 67 mg/dL. * Will decrease Lantus by half to 10 units. * Loosen Novolog significantly. Background * Ms Linton was admitted yesterday with confusion. Her BSG on admission was 424 mg/dL. She received 25 units of Lantus, 4 units of Novolog, and 6 units of IV insulin. * Fasting this morning was 59 mg/dL. Pharmacy consulted at this point. * Patient has a clear liquid diet ordered. * Based upon previous data, patient requires ~55 units of basal insulin with Novolog CF 20 CR 5-6. * For basal, even though patient was only given 25 units last night, she had a hypoglycemic event. Reduce basal by 20% to 20 units daily. * Will tighten CR to prevent hyperglycemia. PLAN FOR INPATIENT GLYCEMIC CONTROL: * Basal insulin * Lantus 15 units SQ qAM * Bolus insulin * NovoLog per scale ACHS or Q6hrs while NPO * Goal Range: Low 110 mg/dL - High 140 mg/dL * Correction Factor: 25 mg/dL/unit * Nutritional / Prandial insulin per carb ratio of 1 unit per 8 grams CHO consumed
[2021-06-16] MEDS: ACETAMINOPHEN 325 MG TAB PO PRN (12:01)
--- NOTE | 2021-06-16 13:29 | Hospitalist Progress Note ---
Date of Service June 16, 2021 Assessment & Plan (1) Encephalopathy: Plan: per Dr. Sebastian's notes with addendum: Acute Metabolic Encephalopathy Likely Multifactorial:Infection, Hyperglycemia, medications --CXR:No acute chest disease. Cardiomegaly is noted. --CT ABD:No acute abnormalities. Cirrhosis, diverticulosis, atherosclerotic changes are seen. There is trace ascites which is nonspecific. --CT head:No acute intracranial hemorrhage, no evidence of acute territorial infarction or other acute intracranial disease process. --Mental status back to baseline Left Leg Cellulitis --Venous Doppler:No evidence of deep venous thrombus within the left lower extremity. --Tibia/Fibula X ray:No acute osseous pathology. Blood culture: No growth to date Wound culture: Enterobacter, MSSA improving gradually daily, less edema and erythema, tenderness as well continue Ceftri 1 g IV daily + Augmentin 875 p.o. twice daily x6 more days to complete 10-day course Monitor wound closely wound care daily Repeat complete blood count, basic metabolic profile after antibiotic course has been completed Candiduria Urine culture: (+) Vivienne > 100k no urinary symptoms treatment not indicated A. fib RVR SSS S/P PM Demand ischemia, resolved: in setting of Chronic troponin elevation, tachycardia Heart rate controlled Continue digoxin, metoprolol Currently not on anticoagulation due to H/O frequent falls/rectus sheath hematoma/subarachnoid hemorrhage DM II Uncontrolled HbA1c 7.6 Continue insulin Lantus and Humalog Monitor BSG's before meals and at bedtime Troponin elevation Type II due to tachycardia Troponin trended down no cardiac symptoms Chronic diastolic heart failure EF 55% to 59%, TTE 2020 Euvolemic continue Lasix 20mg daily and Aldactone 12.5mg HS Hypothyroidism Continue levothyroxine Hypertension stable Chronic anemia Hb at baseline Monitor CBC DVT Px: SCDs Re: History of intracranial hemorrhage Code Status Full code Disposition Discharge to [facility] today Follow-up with primary care physician in 1 week after discharge from [facility] of care discussed with patient in detail and at length all questions answered she is understanding, agreeable, comfortable with the plan of care Admission and Anticipated Discharge Date Admission Date: June 11, 2021 Subjective Follow-up for left lower leg cellulitis, wound infection; encephalopathy, etc. Seen resting in bed, comfortable, not in distress Good spirits States that she continues to feel better overall Still has some discomfort over the left lower leg area, but better Fevers or chills Oriented x3, answers all questions appropriately no chest pain, dyspnea, palpitations, dizziness States she is ready for discharge today, agreeable to transition to acute rehab Review of Systems Review of Systems: all noted and negative except for above Physical Exam Physical Exam: General- oriented x 3, not in distress, speaks in sentences with no effort or accessory muscle use Eyes- anicteric Neck- no JVD Lungs-faint rales at the bases, no wheezing, no crackles Good air entry bilaterally Heart- normal rate, regular rhythm; no murmurs Abdomen- normal bowel sounds, nondistended, soft, nontender Extremities-left lower extremity: Small wound in the anterior [place] around 1 cm, drying, no active discharge, minimal surrounding area of erythema, no warmth, very mild tenderness Right lower extremity: Essentially normal Neuro- alert, oriented x 3; no new gross focal neurologic deficits Skin- warm & dry Results & Data Results & Data ([facility]) Vital Signs (Past 12 Hours) Vital Signs Temp Pulse Pulse Pulse Pulse Resp BP 06/16/21 12:54 36.6 C 69 80 113 H 17 114/71 06/16/21 11:04 78 06/16/21 10:30 36.6 C 69 17 06/16/21 07:20 36.4 C L 91 H 13 06/16/21 03:24 76 06/16/21 02:45 36.7 C 80 18 114/71 BP Pulse Ox 06/16/21 12:54 118/74 98 06/16/21 11:04 06/16/21 10:30 118/74 98 06/16/21 07:20 126/74 95 06/16/21 03:24 06/16/21 02:45 93 all noted and reviewed including below
--- NOTE | 2021-06-16 13:40 | Discharge Summary ---
Date of Service June 16, 2021 Admission HPI Per Admitting Provider History obtained from patient and records. Medical history significant for chronic diastolic heart failure EF 55% to 59%, TTE 2020), history of SSS sp PPM, off anticoagulation because of history of frequent falls/rectus sheath hematoma/subarachnoid hemorrhage in the past, HTN, DM 2 insulin requiring chronic anemia (baseline hemoglobin 10-11), hypothyroidism, chronic pain, chronic thrombocytopenia Last confinement February 2021 for syncope secondary to hypoglycemia. Patient with left lower leg wound for a few weeks now. Some drainage. Topical dressing prescribed by PCP. Left lower leg painful as per patient on PCP visit few days ago. Patient feeling more tired the last few days. No chest pain, no S OB. No headache, no abdominal pain. Patient found by daughter to be confused at home today. Patient admits to not taking her medications the way she is supposed to. BSG noted to be 400s at the ER. IV insulin administered. IV ceftriaxone given at the ER. Patient currently feels much clearer. MEDICAL HISTORY: As above. SURGERIES: Appendectomy, cholecystectomy, hysterectomy, IVC filter placement, cataract surgery, some back surgery, wrist surgery, kidney stone procedure, Achilles tendon surgery, breast biopsy, and pacemaker placement, FAMILY HISTORY: Diabetes, heart disease, and high blood pressure. PERSONAL SOCIAL HISTORY: Nonsmoker. No chronic intake of alcoholic beverages. 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 Admission Exam (Per Admitting) Constitutional GENERAL: Slightly uncomfortable, frail, oriented to month and year, no respiratory distress SKIN: Pallor, warm HEENT: Pale palpebral conjunctivae, no ptosis, dry buccal mucosa NECK : Supple, no tenderness CHEST : CTA, no tenderness HEART : Irregular, tachycardic, no obvious murmurs ABDOMEN: Some distention, nontender EXTREMITIES : LLE erythema with ulcerated wound left lower leg with scant yellow drainage, no other conspicuous deformities noted NEUROLOGIC : Coherent, no facial asymmetry, mild hearing impairment, gait and stance not assessed Discharge Data Consultations 06/11/21 21:52 ED Decision to Admit Stat Procedures Performed CT abd pelvis wo con CLINICAL HISTORY: pain TECHNIQUE: Helical axial images of the abdomen and pelvis were obtained. Automated dose lowering techniques and/or adjustment according to patient size were utilized for this exam. This exam was performed without intravenous contrast. COMPARISON: Comparison is made to CT pelvis 07/13/[address] abdomen pelvis 04/16/2014 FINDINGS: Lower chest: Partial visualization of marked cardiomegaly. Atelectasis versus scarring is seen in the lung bases. Liver: Nodular contour of the liver is seen compatible with cirrhosis. Gallbladder and biliary tree: Patient is status post cholecystectomy. No intra- or extrahepatic biliary ductal dilation. Pancreas: Unremarkable, no focal lesions. Spleen: Multiple hypodensities are seen in the spleen. These are favored to represent cysts. Adrenals: Unremarkable. Kidneys and ureters: Nonobstructive nephrolithiasis is seen. Bladder: Unremarkable. Reproductive organs: Patient is status post hysterectomy. Bowel: Diverticulosis is seen without evidence of diverticulitis. Lymph nodes Retroperitoneal: Multiple enlarged lymph nodes are seen measuring up to 11 mm in short axis Mesenteric: Unremarkable. Pelvic: Unremarkable. Peritoneum: There is a trace amount of peritoneal fluid about the hepatic dome and spleen. Vessels: The abdominal aorta measures up to 26 mm in diameter. There is extensive atherosclerotic disease. IVC filter is incidentally noted. Abdominal wall: Unremarkable. Bones: Degenerative changes in the visualized spine. A medullary [place] is seen in the left femur. IMPRESSION: No acute abnormalities. Cirrhosis, diverticulosis, atherosclerotic changes are seen. There is trace ascites which is nonspecific. ACT 112: Negative or not required by law. CT head/brain wo con CLINICAL HISTORY: ams Technique: Contiguous axial CT images of the head were acquired from the base of the skull to the vertex without intravenous contrast administration. Images were viewed in brain, subdural and bone windows. Automated dose lowering techniques and/or adjustment according to patient size were utilized for this exam. Comparison: Comparison is made to CT head 03/21/2021 Findings: Areas of decreased attenuation are present in the periventricular and subcortical white matter bilaterally consistent with small vessel ischemic disease. Generalized cerebral atrophy with commensurate enlargement of the ventricles, sulci, and cisterns is also present. There is no acute intracranial hemorrhage or evidence of acute territorial infarction. No shift of the midline structures, mass effect, or extra-axial abnormalities are shown. Atherosclerotic calcifications are present in the intracranial segments of the internal carotid arteries. Imaged portions of the paranasal sinuses and mastoid air cells are clear. The orbits appear normal. There are no acute fractures of the calvaria or scalp swelling. Soft tissue density in the frontal scalp may represent sebaceous cyst. Impression: No acute intracranial hemorrhage, no evidence of acute territorial infarction or other acute intracranial disease process. ACT 112: Negative or not required by law. LEFT LOWER EXTREMITY VENOUS DOPPLER CLINICAL HISTORY: Left lower extremity swelling. COMPARISON STUDY: Left lower extremity venous Doppler ultrasound September 18, 2017. TECHNIQUE: Sonography of the deep venous system of the left lower extremity was performed. Compression and augmentation were evaluated. FINDINGS: The left common femoral, superficial femoral and popliteal veins were compressible. Augmentation was normal. Flow was shown within the deep calf vessels. Note is made of subcutaneous edema within the left popliteal fossa and left calf. IMPRESSION: No evidence of deep venous thrombus within the left lower extremity. ACT 112: Negative or not required by law. XR tibia fibula LT 2V CLINICAL HISTORY: LLE sweliing. COMPARISON STUDY: 03/07/2021 TECHNIQUE: AP and lateral left lower leg views views FINDINGS: Bones: The bones are osteopenic. The patient is again status post intramedullary [place] and screw fixation of the distal femur. There is no evidence for an acute fracture or dislocation. There is no lytic or blastic lesion. Joints: The joint spaces are maintained. The bones are in anatomic alignment. Soft tissues: There is no focal soft tissue abnormality. There is no radiopaque foreign body. IMPRESSION: 1. No acute osseous pathology. ACT 112: Negative or not required by law. Diabetes Follow Up Diabetes Follow Up: Diabetes Follow-up Needed for HgbA1c >9% Hospital Course (1) Encephalopathy: per Dr. Sebastian's notes with addendum: Acute Metabolic Encephalopathy Likely Multifactorial:Infection, Hyperglycemia, medications --CXR:No acute chest disease. Cardiomegaly is noted. --CT ABD:No acute abnormalities. Cirrhosis, diverticulosis, atherosclerotic changes are seen. There is trace ascites which is nonspecific. --CT head:No acute intracranial hemorrhage, no evidence of acute territorial infarction or other acute intracranial disease process. --Mental status back to baseline Left Leg Cellulitis --Venous Doppler:No evidence of deep venous thrombus within the left lower extremity. --Tibia/Fibula X ray:No acute osseous pathology. Blood culture: No growth to date Wound culture: Enterobacter, MSSA improving gradually daily, less edema and erythema, tenderness as well continue Ceftri 1 g IV daily + Augmentin 875 p.o. twice daily x6 more days to complete 10-day course Monitor wound closely wound care daily Repeat complete blood count, basic metabolic profile after antibiotic course has been completed Candiduria Urine culture: (+) Vivienne > 100k no urinary symptoms treatment not indicated A. fib RVR SSS S/P PM Demand ischemia, resolved: in setting of Chronic troponin elevation, tachycardia Heart rate controlled Continue digoxin, metoprolol Currently not on anticoagulation due to H/O frequent falls/rectus sheath hematoma/subarachnoid hemorrhage DM II Uncontrolled HbA1c 7.6 Continue insulin Lantus and Humalog Monitor BSG's before meals and at bedtime Troponin elevation Type II due to tachycardia Troponin trended down no cardiac symptoms Chronic diastolic heart failure EF 55% to 59%, TTE 2020 Euvolemic continue Lasix 20mg daily and Aldactone 12.5mg HS Hypothyroidism Continue levothyroxine Hypertension stable Chronic anemia Hb at baseline Monitor CBC DVT Px: SCDs Re: History of intracranial hemorrhage Code Status Full code Disposition Discharge to [facility] today Follow-up with primary care physician in 1 week after discharge from [facility] plan of care discussed with patient in detail and at length all questions answered she is understanding, agreeable, comfortable with the plan of care
[2021-06-17] MEDS ORDERED: INSULIN GLARGINE SOLOSTAR 100 UNITS/ML 3 ML PEN SC SCH (09:00)
== END 2021-06-16 15:18 | DRG 602 ==
LOC: ED 19:36 → SUATTDRO 23:44 → 2W 23:44

== ENCOUNTER 2021-07-26 05:26 | Inpatient (IN) ==
[2021-07-26] MEDS ORDERED: ACETAMINOPHEN 1,000 MG/100 ML VIAL IV STA (05:44)
[2021-07-26] MEDS ORDERED: SODIUM CHLORIDE 0.9% 1000ML 1,000 ML IV SCH (05:45)
[2021-07-26 05:57] LABS: Basophils # (auto) 0.03 K/uL (0-0.2); Basophils % (auto) 0.4 %; Eosinophils # (auto) 0.29 K/uL (0-0.5); Eosinophils % (auto) 4.3 %; Hematocrit (blood only) 29.7 % (37-47); Hemoglobin 9.3 g/dL (12.0-16.0); Immature Granulocytes # (auto) 0.01 K/uL (0.00-0.02); Immature Granulocytes % (auto) 0.1 %; Lymphocytes # (auto) 0.83 K/uL (1.2-3.4); Lymphocytes % (auto) 12.2 %; Mean Corpuscular Hemoglobin 31.4 pg (25-34); Mean Corpuscular Hgb Conc 31.3 g/dL (32-36); Mean Corpuscular Volume 100.3 fL (80-100); Mean Platelet Volume 10.4 fL (7.4-10.4); Monocytes # (auto) 0.81 K/uL (0.11-0.59); Monocytes % (auto) 11.9 %; Neutrophils # (auto) 4.81 K/uL (1.4-6.5); Neutrophils % (auto) 71.1 %; Nucleated RBC # (auto) 0.02 K/uL (0-0); Nucleated RBC % (auto) 0.2 %; Platelet Count 194 K/uL (130-400); RDW Coefficient of Variation 17.7 % (11.5-14.5); RDW Standard Deviation 63.2 fL (36.4-46.3); Red Blood Count 2.96 M/uL (4.2-5.4); White Blood Count 6.78 K/uL (4.8-10.8)
[2021-07-26] MEDS: fentaNYL citrate 100 MCG/2 ML VIAL IV PRN ×2 (06:10→07:53)
[2021-07-26 06:47] LABS: Troponin I High Sensitivity 30.9 pg/ml (0-14)
[2021-07-26 06:52] LABS: BUN Creatinine Ratio 39.6 (10-20); Bilirubin,Total 0.5 mg/dl (0.2-1.0); Calcium 9.2 mg/dl (8.5-10.1); Creatinine Clr Calc Pharmacy 21.2 ml/min; Est GFR (African American) 29.1 ml/min; Est GFR (Non-African American) 25.1 ml/min; Globulin 3.9 gm/dl (2.5-4.0); Total Protein 7.9 gm/dl (6.0-8.3)
--- NOTE | 2021-07-26 06:54 | Emergency Department Note ---
History of Present Illness General Chief complaint: Chest Pain Stated complaint: Chest Pain Time Seen by Provider: 07/26/21 05:28 Source: patient Mode of arrival: EMS Limitations: no limitations History of Present Illness Provider complaint: chest pain, sob Onset (ago): week(s) 1 Location: chest Radiation: non-radiation Maximum Pain Intensity: 10 Quality: + constant Relieved By: + none Exacerbated By: + movement Associated symptoms: + denies other symptoms Treatments prior to arrival: none This is a 81-year-old female brought in by EMS due to concern for chest pain and shortness of breath. Patient states she has had these symptoms since last week when she had a fall and was brought in here for evaluation. Patient states she was told she had no serious injury and was sent home. Patient states she has been taking Tylenol at home only. Patient denies fevers or chills, leg swelling, cough, or hemoptysis. Patient denies any sick contacts. Patient states she does have a history of heart problems including an irregular heartbeat and a pacer. She states her pain is worse with movement despite use of Tylenol which she feels then makes her shortness of breath worse. She denies any cough or hemoptysis. Denies any dizziness or back pain. Denies nausea or vomiting. . Pt seen during a time of high acuity and national emergency pandemic while wearing PPE. Home Medications Medication Instructions Recorded Confirmed Type atorvastatin 40 mg tablet 40 mg PO HS 12/13/20 07/26/21 History levothyroxine 75 mcg tablet 75 mcg PO HS 12/13/20 07/26/21 History losartan 50 mg tablet 50 mg PO HS 12/13/20 07/26/21 History magnesium oxide 400 mg PO HS 12/13/20 07/26/21 History rizatriptan 5 mg tablet 5 mg PO DIRECTED PRN 12/13/20 07/26/21 History spironolactone 25 mg tablet 12.5 mg PO HS 12/13/20 07/26/21 History allopurinol 300 mg tablet 300 mg PO HS 03/05/21 07/26/21 History cholecalciferol (vitamin D3) 25 25 mcg PO HS 03/05/21 07/26/21 History mcg (1,000 unit) tablet digoxin 125 mcg (0.125 mg) tablet 125 mcg PO DAILY@199903/05/21 07/26/21 History epinephrine 0.3 mg/0.3 mL 0.3 mg IM Q4H PRN 03/05/21 07/26/21 History injection, auto-injector gabapentin 300 mg capsule 300 mg PO HS 03/05/21 07/26/21 History hydrocodone 5 mg-acetaminophen 325 1 tab PO Q6 PRN 03/05/21 07/26/21 History mg tablet metoprolol succinate 200 mg 200 mg PO BID 06/11/21 07/26/21 History tablet,extended release 24 hr vitamins A,C,L-cjdg-kfuqup 14,320 1 cap PO HS 06/11/21 07/26/21 History unit-226 mg-200 unit capsule (PreserVision AREDS) insulin lispro 100 unit/mL 1 unit SUBCUT UD #0 ml 06/16/21 07/26/21 Rx subcutaneous pen (Humalog KwikPen (U-100) Insulin) insulin glargine 100 unit/mL (3 13 unit SUBCUT QAM ml 06/30/21 07/26/21 History mL) subcutaneous pen (Lantus Solostar U-100 Insulin) furosemide 40 mg tablet 20 mg PO DAILY 07/20/21 07/26/21 History Allergies Allergy/AdvReac Type Severity Reaction Status Date / Time citalopram Allergy Unknown Unknown Verified 07/26/21 07:19 paroxetine Allergy Unknown Unknown Verified 07/26/21 07:19 Sulfa (Sulfonamide Allergy Unknown TOLERATES Verified 07/26/21 07:19 Antibiotics) LASIX venom-wasp protein Allergy Unknown HIVES Verified 07/26/21 07:19 celecoxib AdvReac Mild N/V Verified 07/26/21 07:19 Past Med/Surg History Medical History (Updated 07/28/21 @ 04:54 by Tigist Luciano DO) Afib Cerebral hemorrhage "2010 left hemiparesis" Chronic anemia Chronic combined systolic and diastolic CHF (congestive heart failure) Diabetes mellitus, type II Frequent falls hx of subarachnoid hemorrhage 2009, large retroperitoneal bleed 2014 walker dependent Gout Hematoma of rectus sheath 2015 Hemiplegia History of - cerebrovascular accident HLD (hyperlipidemia) HTN (hypertension) Hypothyroidism Pacemaker Presence of IVC filter Tachy-jodi syndrome Surgical History Status post appendectomy Status post cardiac pacemaker procedure Status post cataract extraction Status post cholecystectomy Status post hysterectomy Status post insertion of inferior vena caval filter Family History Daughter Breast cancer Mother Cancer pancreatic Father Heart disease Social History Smoking Status: Never smoker Second Hand Exposure: No; Hx Alcohol Use: No Hx Substance Use: No Preferred Language: Guyanese Communication Ability: Effective All Terrain Vehicle Racer Required: No Beliefs That Will Affect Care: None marital status: Current Living Situation: Spouse Current Living Situation Comment: patient lives at home with , who is her primary caregiver Other Information That Helps Us Care for You: No Feels Safe at Home: Yes Safety Concerns: Feels Safe At This Time Assistive Devices: Glasses Review of Systems A total of 10 systems reviewed and were otherwise negative All systems reviewed & are unremarkable except as noted in HPI & below Physical Exam Vital Signs Vital Signs - 24 hr 07/26/21 05:27 07/26/21 05:37 07/26/21 07:56 Temperature 37.2 C Temperature Source Oral Pulse Rate 64 Pulse Rate [Finger] 65 Pulse Rhythm [Finger] Regular Pulse Strength [Finger] Normal Respiratory Rate 24 20 Respiratory Effort / Characteristics Non-Labored Respiratory Depth Normal Normal Blood Pressure 120/70 Blood Pressure [Right Arm] 90/54 L Blood Pressure Mean 86 Blood Pressure Mean [Right Arm] 66 Blood Pressure Position [Right Arm] Sitting Pulse Oximetry 96 96 100 Oxygen Delivery Method Room Air Room Air Room Air Sepsis Recent Fever Within 48 Hours No Sepsis New/Unexplained Change in Mental Status No Sepsis Action Taken by Nursing No Action Required 07/26/21 08:01 07/26/21 08:50 Temperature Temperature Source Pulse Rate Pulse Rate [Finger] Pulse Rhythm [Finger] Pulse Strength [Finger] Respiratory Rate Respiratory Effort / Characteristics Non-Labored Respiratory Depth Shallow Blood Pressure Blood Pressure [Right Arm] 102/58 L Blood Pressure Mean Blood Pressure Mean [Right Arm] 72 Blood Pressure Position [Right Arm] Sitting Pulse Oximetry Oxygen Delivery Method Room Air Sepsis Recent Fever Within 48 Hours Sepsis New/Unexplained Change in Mental Status Sepsis Action Taken by Nursing GENERAL: alert, well appearing, well nourished, no distress, non-toxic FACE: evidence of healing contusion noted to face EYE EXAM: normal conjunctiva, PERRL and EOM's grossly intact OROPHARYNX: no exudate, no erythema, lips, buccal mucosa, and tongue normal and mucous membranes are moist NECK: supple, no nuchal rigidity, no adenopathy, non-tender LUNGS: Clear to auscultation. Normal chest wall mechanics, no w/r/r HEART: no murmurs, S1 normal and S2 normal, pain with palpation over sternum and anterior ribs b/l, no crepitus ABDOMEN: abdomen soft, non-tender, normo-active bowel sounds, no masses, no rebound or guarding. BACK: Back is symmetrical on inspection and there is no deformity, no midline tenderness, no CVA tenderness. SKIN: no rashes and no bruising UPPER EXTREMITIES: upper extremities are grossly normal. FROM, nml pulses b/l. LOWER EXTREMITIES: No pitting edema. FROM, nml pulses b/l. NEURO EXAM: Normal sensorium, cranial nerves II-XII grossly intact, normal speech, no gross weakness of arms, no gross weakness of legs. Gross sensation intact. Course Course 0836: Patient updated on results thus far. Patient states pain is improved. Patient states she does not drink much water because she takes a diuretic. Patient denies any use of blood thinners. 0920: Discussed with [facility] hospitalist service. They requested consultation with trauma or CT surgery due to findings on the CAT scan. 0940: Discussed with Dr. Clark. Need for acute intervention at this time. Recommends pain control, trending of the troponins. They are happy to discuss the case further if there are any evolving changes or concerns. Administered Medications Atorvastatin Calcium (Atorvastatin 40 Mg Tab) 40 mg PO [facility] Stop: 08/25/21 20:59 Last Admin: 07/27/21 20:33 Dose: Not Given Documented by: [id number] Admin: 07/26/21 23:22 Dose: Not Given Documented by: [id number] Digoxin (Digoxin 0.125 Mg Tab) 0.125 mg PO DAILY@1999 [facility] Stop: 08/25/21 19:59 Last Admin: 07/26/21 23:22 Dose: Not Given Documented by: [id number] Gabapentin (Gabapentin 300 Mg Cap) 300 mg PO [facility] Stop: 08/25/21 20:59 Last Admin: 07/26/21 23:23 Dose: Not Given Documented by: [id number] Sodium Bicarbonate 150 meq/Potassium Acetate 20 meq/Dextrose 1,160 mls @ 125 mls/hr IV .[id number] [facility] Stop: 08/26/21 18:29 Last Admin: 07/28/21 04:37 Dose: 125 mls/hr Documented by: [id number] Infusion: 07/28/21 04:37 Dose: 125 mls/hr Documented by: [id number] Admin: 07/27/21 19:56 Dose: 125 mls/hr Documented by: [id number] Acetaminophen [facility]) 1,000 mg in 100 mls @ 400 mls/hr IV Q8H PRN PRN Reason: Pain or Fever Stop: 07/30/21 20:41 Last Infusion: 07/27/21 22:02 Dose: 0 mls/hr Documented by: [id number] Admin: 07/27/21 21:01 Dose: 400 mls/hr Documented by: [id number] Insulin Aspart (Insulin Aspart Per Unit) 0 units SC Q4 [facility] Stop: 08/25/21 12:59 Last Admin: 07/28/21 03:29 Dose: 3 units Documented by: [id number] Cosigned by: [id number] Admin: 07/28/21 00:06 Dose: 2 units Documented by: [id number] Cosigned by: [id number] Admin: 07/27/21 20:34 Dose: 2 units Documented by: [id number] Cosigned by: [id number] Admin: 07/27/21 15:48 Dose: Not Given Documented by: [id number] Admin: 07/27/21 12:52 Dose: Not Given Documented by: [id number] Admin: 07/27/21 08:04 Dose: Not Given Documented by: [id number] Levothyroxine Sodium (Levothyroxine Sodium 75 Mcg Tablet) 75 mcg PO HS [facility] Stop: 08/25/21 20:59 Last Admin: 07/27/21 20:34 Dose: Not Given Documented by: [id number] Admin: 07/26/21 23:23 Dose: Not Given Documented by: [id number] Lidocaine (Lidocaine 5% 1 Patch) 1 patch TD QAM [facility] Stop: 08/25/21 12:39 Last Admin: 07/27/21 10:20 Dose: 1 patch Documented by: [id number] Admin: 07/26/21 14:30 Dose: 1 patch Documented by: [id number] Miscellaneous (Remove Lidoderm Patch) 1 ea N/A DAILY@2100 [facility] Stop: 08/25/21 20:59 Last Admin: 07/27/21 20:34 Dose: 1 ea Documented by: [id number] Admin: 07/26/21 23:09 Dose: 1 ea Documented by: [id number] Multivitamins (Multivitamin Tab) 1 tab PO [facility] Stop: 08/25/21 20:59 Last Admin: 07/27/21 20:34 Dose: Not Given Documented by: [id number] Admin: 07/26/21 23:24 Dose: Not Given Documented by: [id number] Vitamin D (Cholecalciferol 1,000 Units 25 Mcg Tab) 1,000 units PO [facility] Stop: 08/25/21 20:59 Last Admin: 07/27/21 20:33 Dose: Not Given Documented by: [id number] Admin: 07/26/21 23:22 Dose: Not Given Documented by: [id number] Discontinued Medications Acetaminophen (Acetaminophen 500 Mg Tab) 500 mg PO QID [facility] Stop: 08/25/21 12:59 Last Admin: 07/26/21 23:22 Dose: Not Given Documented by: [id number] Admin: 07/26/21 16:15 Dose: 500 mg Documented by: [id number] Admin: 07/26/21 14:17 Dose: 500 mg Documented by: [id number] Doxycycline Hyclate (Doxycycline Hyclate 100 Mg Cap) 100 mg PO BID [facility]; Protocol Stop: 08/02/21 20:59 Last Admin: 07/26/21 23:23 Dose: Not Given Documented by: [id number] Fentanyl Citrate (Fentanyl Citrate 100 Mcg/2 Ml Vial) 50 mcg IV Q15M PRN PRN Reason: Pain Stop: 08/09/21 05:43 Last Admin: 07/26/21 07:53 Dose: 50 mcg Documented by: [id number] Admin: 07/26/21 06:10 Dose: 50 mcg Documented by: [id number] Sodium Chloride (Nss 1000ml) 1,000 mls @ 125 mls/hr IV .Q8H [facility] Stop: 08/25/21 05:44 Last Infusion: 07/26/21 13:31 Dose: 0 mls/hr Documented by: [id number] Admin: 07/26/21 06:10 Dose: 125 mls/hr Documented by: [id number] Acetaminophen (Ofirmev) 1,000 mg in 100 mls @ 400 mls/hr IV NOW STA Stop: 07/26/21 05:58 Last Infusion: 07/26/21 06:25 Dose: 400 mls/hr Documented by: [id number] Admin: 07/26/21 06:10 Dose: 400 mls/hr Documented by: [id number] Sodium Bicarbonate 75 meq/ (Sodium Chloride) 1,075 mls @ 50 mls/hr IV .[id number] ONE Stop: 07/27/21 10:39 Last Infusion: 07/27/21 00:12 Dose: 0 mls/hr Documented by: [id number] Infusion: 07/26/21 23:08 Dose: 0 mls/hr Documented by: [id number] Infusion: 07/26/21 22:47 Dose: 100 mls/hr Documented by: [id number] Admin: 07/26/21 13:41 Dose: 50 mls/hr Documented by: [id number] Sodium Bicarbonate 75 meq/ (Sodium Chloride) 1,075 mls @ 100 mls/hr IV .[id number] [facility] Stop: 07/27/21 18:44 Last Infusion: 07/27/21 03:47 Dose: 0 mls/hr Documented by: [id number] Admin: 07/26/21 23:08 Dose: 100 mls/hr Documented by: [id number] Doxycycline Hyclate 100 mg/ (Dextrose) 110 mls @ 50 mls/hr IV BID@1000,2000 [facility]; Protocol Stop: 08/03/21 00:29 Last Infusion: 07/27/21 03:46 Dose: 0 mls/hr Documented by: [id number] Admin: 07/27/21 01:25 Dose: 50 mls/hr Documented by: [id number] Piperacillin Sod/Tazobactam (Sod 3.375 gm/ Dextrose) 115 mls @ 28.75 mls/hr IV Q8H [facility]; Protocol Stop: 08/03/21 05:59 Last Infusion: 07/27/21 08:04 Dose: 0 mls/hr Documented by: [id number] Admin: 07/27/21 05:46 Dose: 28.8 mls/hr Documented by: [id number] Piperacillin Sod/Tazobactam (Sod 3.375 gm/ Dextrose) 115 mls @ 230 mls/hr IV NOW ONE; Protocol Stop: 07/27/21 00:44 Last Infusion: 07/27/21 01:24 Dose: 0 mls/hr Documented by: [id number] Admin: 07/27/21 00:45 Dose: 230 mls/hr Documented by: [id number] Vancomycin HCl 1,250 mg/ (Sodium Chloride) 275 mls @ 200 mls/hr IV ONE ONE; Protocol Stop: 07/27/21 04:22 Last Infusion: 07/27/21 05:13 Dose: 0 mls/hr Documented by: [id number] Admin: 07/27/21 03:40 Dose: 200 mls/hr Documented by: [id number] Sodium Bicarbonate 150 meq/ (Sodium Chloride) 1,150 mls @ 100 mls/hr IV .[id number] [facility] Stop: 07/27/21 22:57 Last Infusion: 07/27/21 10:18 Dose: 0 mls/hr Documented by: [id number] Admin: 07/27/21 03:40 Dose: 100 mls/hr Documented by: [id number] Piperacillin Sod/Tazobactam (Sod 3.375 gm/ Dextrose) 115 mls @ 28.75 mls/hr IV Q12H [facility]; Protocol Stop: 07/27/21 23:59 Last Infusion: 07/27/21 22:02 Dose: 0 mls/hr Documented by: [id number] Admin: 07/27/21 17:43 Dose: 28.8 mls/hr Documented by: [id number] Sodium Bicarbonate 150 meq/ (Dextrose/Sodium Chloride) 1,150 mls @ 150 mls/hr IV .[id number] [facility] Stop: 08/26/21 09:59 Last Admin: 07/27/21 18:33 Dose: Not Given Documented by: [id number] Infusion: 07/27/21 17:44 Dose: 150 mls/hr Documented by: [id number] Admin: 07/27/21 10:19 Dose: 150 mls/hr Documented by: [id number] Insulin Aspart (Insulin Aspart Per Unit) 0 units SC ACHS [facility] Stop: 08/25/21 12:59 Last Admin: 07/26/21 22:47 Dose: 3 units Documented by: [id number] Cosigned by: [id number] Admin: 07/26/21 17:52 Dose: 7 units Documented by: [id number] Cosigned by: [id number] Admin: 07/26/21 14:04 Dose: 6 units Documented by: [id number] Cosigned by: [id number] Insulin Aspart (Insulin Aspart Per Unit) 0 units SC 0200 [facility] Stop: 07/27/21 02:01 Last Admin: 07/27/21 03:46 Dose: 2 units Documented by: [id number] Cosigned by: [id number] Insulin Glargine (Insulin Glargine Solostar 100 Units/Ml 3 Ml Pen) 0 units SC [facility]; Protocol Stop: 07/26/21 21:01 Last Admin: 07/26/21 22:49 Dose: 10 units Documented by: [id number] Cosigned by: [id number] Magnesium Oxide (Magnesium Oxide 400 Mg Tab) 400 mg PO [facility] Stop: 08/25/21 20:59 Last Admin: 07/26/21 23:23 Dose: Not Given Documented by: [id number] Metoprolol Succinate (Metoprolol Succ 50mg Ext Rel Tab) 200 mg PO BID [facility] Stop: 08/25/21 20:59 Last Admin: 07/26/21 23:24 Dose: Not Given Documented by: [id number] Miscellaneous (Stat Iv) 1 ea N/A NOW STA Stop: 07/26/21 10:44 Last Admin: 07/26/21 13:33 Dose: Not Given Documented by: [id number] Morphine Sulfate (Morphine Sulfate 2 Mg/Ml Carp) 1 mg IV NOW STA Stop: 07/26/21 10:28 Last Admin: 07/26/21 11:10 Dose: 1 mg Documented by: [id number] Morphine Sulfate (Morphine Sulfate 2 Mg/Ml Carp) 1 mg IV NOW STA Stop: 07/26/21 12:17 Last Admin: 07/26/21 12:20 Dose: 1 mg Documented by: [id number] Morphine Sulfate (Morphine Sulfate 2 Mg/Ml Carp) 1 mg IV Q4H PRN PRN Reason: Severe Pain Stop: 08/09/21 12:39 Last Admin: 07/26/21 15:48 Dose: 1 mg Documented by: [id number] Naloxone HCl (Naloxone Hcl 0.4 Mg/1 Ml Vial/Carp) 0.2 mg IV NOW STA Stop: 07/26/21 20:55 Last Admin: 07/26/21 21:13 Dose: 0.2 mg Documented by: [id number] Naloxone HCl (Naloxone Hcl 0.4 Mg/1 Ml Vial/Carp) 0.4 mg IV NOW STA Stop: 07/27/21 03:23 Last Admin: 07/27/21 03:40 Dose: 0.4 mg Documented by: [id number] Naloxone HCl (Naloxone Hcl 0.4 Mg/1 Ml Vial/Carp) Confirm Administered Dose 0.4 mg .ROUTE .[employer] ONE Stop: 07/27/21 03:24 Last Admin: 07/27/21 03:40 Dose: Not Given Documented by: [id number] Naloxone HCl (Naloxone Hcl 0.4 Mg/1 Ml Vial/Carp) 0.4 mg IV NOW STA Stop: 07/27/21 08:04 Last Admin: 07/27/21 08:15 Dose: Not Given Documented by: [id number] Naloxone HCl (Naloxone Hcl 0.4 Mg/1 Ml Vial/Carp) Confirm Administered Dose 0.4 mg .ROUTE .[employer] ONE Stop: 07/27/21 08:11 Last Admin: 07/27/21 08:15 Dose: 0.4 mg Documented by: [id number] Naloxone HCl (Naloxone Hcl 0.4 Mg/1 Ml Vial/Carp) 0.4 mg IV NOW STA Stop: 07/27/21 09:22 Last Admin: 07/27/21 10:18 Dose: Not Given Documented by: [id number] Naloxone HCl (Naloxone Hcl 0.4 Mg/1 Ml Vial/Carp) 2 mg IV NOW ONE Stop: 07/27/21 09:46 Last Admin: 07/27/21 10:36 Dose: 2 mg Documented by: [id number] Naloxone HCl (Naloxone Hcl 0.4 Mg/1 Ml Vial/Carp) 4 mg IV NOW STA Stop: 07/27/21 11:07 Last Admin: 07/27/21 11:39 Dose: 4 mg Documented by: [id number] Oxycodone HCl (Oxycodone Hcl Ir 5 Mg Tab (Immediate Release)) 2.5 mg PO Q6H PRN PRN Reason: moderate pain Stop: 08/09/21 12:39 Last Admin: 07/26/21 18:14 Dose: 2.5 mg Documented by: [id number] Sodium Bicarbonate (Sodium Bicarb 8.4% Inj 50 Meq/50 Ml Syr) 50 meq IV NOW STA Stop: 07/27/21 02:58 Last Admin: 07/27/21 03:40 Dose: 50 meq Documented by: [id number] Critical Care Time Critical Care Time: Yes Total Critical Care Time: 35 Critical care of 35 min performed to assess and manage high likelihood of life- threatening chest pain and trauma, involving labs and imaging performed with assessment to evaluate trauma diagnosis with frequent reassessment. This time includes bedside time, treatment discussions with patient/family/consultants, documentation time and excludes procedure time. Medical Decision Making Differential Diagnosis Differential diagnoses includes but is not limited to acute coronary syndrome, myocardial infarction, pericarditis, pulmonary embolus, aortic dissection, pneumonia, pneumothorax, musculoskeletal, shingles, esophageal. Medical Records Attestation: I reviewed the patient's medical records. Home Medications Current Medication List: was personally reviewed by me Laboratory Data Attestation: I reviewed the patient's lab results. Result diagrams: 07/27/21 04:55 07/27/21 15:43 Lab Results 07/26/21 07/26/21 07/26/21 Range/Units 05:48 05:48 09:10 WBC 6.78 (4.8-10.8) K/uL RBC 2.96 L (4.2-5.4) M/uL Hgb 9.3 L (12.0-16.0) g/dL Hct 29.7 L (37-47) % MCV 100.3 H (80-100) fL MCH 31.4 (25-34) pg MCHC 31.3 L (32-36) g/dL RDW Std Deviation 63.2 H (36.4-46.3) fL RDW Coeff of [place] 17.7 H (11.5-14.5) % Plt Count 194 (130-400) K/uL MPV 10.4 (7.4-10.4) fL Immature Gran % (Auto) 0.1 % Neut % (Auto) 71.1 % Lymph % (Auto) 12.2 % [place] % (Auto) 11.9 % Eos % (Auto) 4.3 % Baso % (Auto) 0.4 % Neut # (Auto) 4.81 (1.4-6.5) K/uL Lymph # (Auto) 0.83 L (1.2-3.4) K/uL [place] # (Auto) 0.81 H (0.11-0.59) K/uL Eos # (Auto) 0.29 (0-0.5) K/uL Baso # (Auto) 0.03 (0-0.2) K/uL Immature Gran # (Auto) 0.01 (0.00-0.02) K/uL Absolute Nucleated RBC 0.02 H (0-0) K/uL Nucleated RBC % (auto) 0.2 % Sodium 136 (136-145) mmol/L Potassium 5.1 (3.5-5.1) mmol/L Chloride 112 H (98-107) mmol/L Carbon Dioxide 10 L (21-32) mmol/L Anion Gap 14 H (3-11) BUN 74 H (6-23) mg/dl Creatinine 1.87 H (0.6-1.2) mg/dl Est Cr Clr Drug Dosing 21.2 ml/min Est GFR ( Amer) 29.1 ml/min Est GFR (Non-Af Amer) 25.1 ml/min BUN/Creatinine Ratio 39.6 H (10-20) Glucose 175 H (70-99(Fasting)) mg/dl Calcium 9.2 (8.5-10.1) mg/dl Total Bilirubin 0.5 (0.2-1.0) mg/dl AST 22 (13-39) U/L ALT 25 (7-52) U/L Alkaline Phosphatase 152 H (34-104) U/L Troponin I High Sens 30.9 H (0-14) pg/ml Total Protein 7.9 (6.0-8.3) gm/dl Albumin 4.0 (3.4-5.0) gm/dl Globulin 3.9 (2.5-4.0) gm/dl Albumin/Globulin Ratio 1.0 (0.9-2) SARS-CoV-2, RNA, NAAT NEGATIVE (NEGATIVE) Imaging Data Radiologist's Impression: Chest CT 07/26/21 08:05 CT chest diagnostic wo con CT DOSE: 226.10 mGy.cm CLINICAL HISTORY: 81 years-old Female with cp, sob, s/p fall. Acute chest tra ritchie status post fall TECHNIQUE: Multiaxial CT images of the chest were performed without contrast. A dose lowering technique was utilized adhering to the principles of ALARA. COMPARISON: CT abdomen and pelvis 07/20/2021, CTA chest 01/02/2010 FINDINGS: Calcifications of the thyroid. No pathologically enlarged lymph nodes are identified. There is marked cardiomegaly with small pericardial effusion. Left subclavian pacer. Extensive coronary artery calcifications. Advanced atherosclerosis of the thoracic aorta descending tortuosity. Dilated pulmonary artery suggestive of pulmonary artery hypertension. Trace pleural effusions. Intralobular septal thickening with intermixed groundglass densities. Mild dependent subsegmental bibasilar atelectasis. No pneumothorax. Decreased AP dimension of the trachea and bronchi may represent tracheobronchomalacia. Mild bibasilar mucous plugging. No acute of the imaged upper abdomen. Secretions are noted within the mid esophagus. Moderate sized hiatal hernia. Mild generalized body wall edema. Degenerative changes of the shoulders and spine. There is an acute mildly displaced and angulated fracture involving the mid sternal body. Trace retrosternal hemorrhage within the anterior mediastinum. Subtle angulation of the anterior fourth and fifth ribs suggests age-indeterminate fractures. No acute displaced rib fracture identified. IMPRESSION: 1. Acute mildly displaced and angulated fracture of the mid sternal body with trace retrosternal hemorrhage. 2. Subtle age-indeterminate fractures of the anterior left fourth and fifth ribs. No acute displaced rib fracture or pneumothorax. 3. Marked cardiomegaly with mild pulmonary edema and trace pleural effusions. 4. Pulmonary artery hypertension. 5. Moderate sized hiatal hernia. ACT 112: Negative or not required by law. Electronically signed by: Sarthak Quigley M.D. 07/26/2021 9:15 AM ECG Data Attestation: I personally reviewed and interpreted this ECG as follows: Indication: + chest pain Rate (beats per minute): 64 Rhythm: + other ECG Intervals/blocks: + Left bundle branch block and + Prolonged QT ECG Douglas: + Normal ECG ST segments: + Nonspecific ST abnormalities Additional Comments: paced MDM Narrative This is a 81-year-old female who presents due to persistent chest pain which she feels is also limiting her ability to take a deep breath since a fall last week. Patient was previously seen and evaluated, no significant injury noted. Patient states she has been taking Tylenol at home. Patient admits to decreased oral intake as she has been feeling unwell however she is continuing to take her routine medications. Patient does have significant prior cardiac history although stated this pain felt different. Patient sent for CT of the chest as a precaution, no IV dye noted this patient was noted to have CASH compared to prior creatinine. I suspect this is likely due to her reported poor p.o. intake and dehydration. Patient found to have fracture of the sternal body. Patient with elevated high-sensitivity troponin in addition. I do not suspect primary cardiac etiology or cardiac contusion from trauma. I suspect this is likely secondary to elevated creatinine at this time. Patient was started on gentle IV fluid rehydration, and was given IV Tylenol and fentanyl for pain with improvement. Case discussed with hospitalist who requested the case be discussed with tertiary [facility] facility as a precaution due to traumatic findings. Trauma surgeon on-call at [facility] was consulted and recommended no need for acute intervention, pain control, and trending troponin as a precaution. They are happy to discuss the case further if there are any changes or concerns. Patient made aware of all results, verbalized understanding, and was in agreement with plan for additional inpatient evaluation and management. An order was placed for continuous cardiac monitoring. The monitor shows a rate of _66__ with _paced_ rhythm. Impression & Plan Chest pain, Elevated troponin, Sternal fracture, CASH (acute kidney injury), Dehydration Discharge Plan Visit Data Chief Complaint: Chest Pain Stated Complaint: Chest Pain ED Provider: Tigist Luciano Discharge Problem: Chest pain, Elevated troponin, Sternal fracture, CASH (acute kidney injury), Dehydration Patient Disposition: Admitted As Inpatient Discharge Instructions Interventions: ED Discharge Assessment Last Done: 07/26/21 12:19 Discharge Problem: Chest pain Qualifiers: Chest pain type: unspecified Qualified Code(s): R07.9 - Chest pain, unspecified Sternal fracture Qualifiers: Encounter type: initial encounter Sternal location: body of sternum Fracture type: closed Qualified Code(s): S22.22XA - Fracture of body of sternum, initial encounter for closed fracture
[2021-07-26 07:14] LABS: Potassium 5.1 mmol/L (3.5-5.1)
--- NOTE | 2021-07-26 09:16 | CT Scan Report ---
CT chest diagnostic wo con CT DOSE: 226.10 mGy.cm CLINICAL HISTORY: 81 years-old Female with cp, sob, s/p fall. Acute chest trauma status post fall TECHNIQUE: Multiaxial CT images of the chest were performed without contrast. A dose lowering techni que was utilized adhering to the principles of ALARA. COMPARISON: CT abdomen and pelvis 07/20/2021, CTA chest 01/02/2010 FINDINGS: Calcifications of the thyroid. No pathologically enlarged lymph nodes are identified. There is marked cardiomegaly with small pericardial effusion. Left subclavian pacer. Extensive coronary ar timothy calcifications. Advanced atherosclerosis of the thoracic aorta descending tortuosity. Dilated pu lmonary artery suggestive of pulmonary artery hypertension. Trace pleural effusions. Intralobular septal thickening with intermixed groundglass densities. Mild d ependent subsegmental bibasilar atelectasis. No pneumothorax. Decreased AP dimension of the trachea a nd bronchi may represent tracheobronchomalacia. Mild bibasilar mucous plugging. No acute of the imaged upper abdomen. Secretions are noted within the mid esophagus. Moderate sized h iatal hernia. Mild generalized body wall edema. Degenerative changes of the shoulders and spine. Ther e is an acute mildly displaced and angulated fracture involving the mid sternal body. Trace retroster nal hemorrhage within the anterior mediastinum. Subtle angulation of the anterior fourth and fifth ri bs suggests age-indeterminate fractures. No acute displaced rib fracture identified. IMPRESSION: 1. Acute mildly displaced and angulated fracture of the mid sternal body with trace retrosternal hemo rrhage. 2. Subtle age-indeterminate fractures of the anterior left fourth and fifth ribs. No acute displaced rib fracture or pneumothorax. 3. Marked cardiomegaly with mild pulmonary edema and trace pleural effusions. 4. Pulmonary artery hypertension. 5. Moderate sized hiatal hernia. ACT 112: Negative or not required by law. Electronically signed by: Sarthak Quigley M.D. 07/26/2021 9:15 AM
[2021-07-26] MEDS ORDERED: MoRPHine SULFATE 2 MG/ML CARP IV STA ×2 (10:27→12:16)
--- NOTE | 2021-07-26 10:34 | History & Physical Report ---
Date of Service July 26, 2021 Assessment & Plan (1) Sternal fracture: (2) Multiple rib fractures: (3) CASH (acute kidney injury): (4) High anion gap metabolic acidosis: (5) Chest pain: (6) Elevated troponin: (7) CHI (closed head injury): (8) Diabetic leg ulcer: (9) Type II diabetes mellitus, uncontrolled: (10) Chronic anemia: Plan: This is a 81-year-old female who has significant past history of insulin- dependent T2DM uncontrolled, PAF not anticoagulated on warfarin, history of sinus node dysfunction status post pacemaker placement in 2009, chronic HFpEF, peripheral neuropathy, hypothyroidism, HTN, HLD who presents to ED after experiencing chest pain and shortness of breath x1 week. Of significance patient sustained a fall approximately 1 week ago. Acute mildly displaced and angulated fracture of the mid sternal body with trace retrosternal hemorrhage. Anterior L 4th and 5th rib fracture Anterior chest wall pain elevated troponin Mechanical Fall 1 week ago admit to PCU ED provider discussed cased with trauma service at [facility], Dr. Clark, who stated no acute intervention required, conservative management at this time, if further sx evolve can reach out to trauma service at [facility], no transfer necessary pain management with ICE, lidocaine patch, scheduled APAP, prn IV morphine or PO oxy IR obtain echocardiogram cycle troponins ekg in a.m. PT/OT hold on cards consult for now incentive spirometry CASH Anion gap metabolic acidosis baseline cr 0.6-0.7 pt with poor po intake hold losartan, lasix and aldactone 1/2 NSS with 75meq bicarb x 1 L follow bmp, avoid nephrotoxic agents Closed head injury L facial ecchymosis and L frontal scalp hematoma pt c/o headache, dizziness will obtain repeat CT head to r/o evolving changes otherwise evolving and healing B/L Lower ext venous stasis Possible lower extremity cellulitis Diabetic ulcer to L leg consult wound care oral doxycycline 100mg bid Chronic HFpEF HTN obtain echo on losartan, metoprolol, lasix and aldactone as outpt hold losartan, lasix and aldactone daily weights, strict I and O pt with lower extremity edema, increased per pt increased edema may be in setting of cellulitis vs some decompensation of HF however given soft BPs on arrival, poor intake x 1 week and CASH will hold diuretic and give fluid challenge Uncontrolled insulin dependent T2DM Lantus/novolog per protocol a1c 10.7 07/05/21 consult glycemic pharmacy due to reduced intake Afib hx of TBS s/p PPM 2009 interrogate pacer continue metoprolol and digoxin not on OAC 2/2 to hx of SAH Chronic anemia baseline hgb 9-10 hgb 9.3 today monitor closely DVT ppx: SCD/TEDS for now, no chemical prophylaxis in setting of recent trauma, trace retrosternal hemorrhage and hx of SAH Dispo: PCU, pt likely to need acute inpt rehab FULL CODE PCP: Gege Fontenot Pt was seen and examined in collaboration with Dr. Sebastian, please see addendum History of Present Illness Chief Complaint: Chest pain and SOB x 1 week. Primary Care Provider: Mo Fontenot, This is a 81-year-old female who has significant past history of insulin- dependent T2DM uncontrolled, PAF not anticoagulated on warfarin, history of sinus node dysfunction status post pacemaker placement in 2009, chronic HFpEF, peripheral neuropathy, hypothyroidism, HTN, HLD who presents to ED after experiencing chest pain and shortness of breath x1 week. Of significance patient sustained a fall approximately 1 week ago. She states that she was walking in her kitchen with her walker when her walker went out from under her and she fell and hit the left side of her head in the corner of the kitchen. She feels she may have lost consciousness for approximately 15 minutes. She states her fall was witnessed. She recalls all events of the fall. She was brought to ED for further evaluation. At that point in time she underwent head, face, C-spine and abdomen pelvis CT along with rib and chest x-ray which is negative for acute traumatic injury. She also admits to being dizzy, described as a spinning sensation, for the last week as well. She denies any further falls. Since having her fall 1 week ago she has been experiencing significant substernal chest pain that is nonradiating. She has never experienced pain like this in the past. She further feels short of breath because she is unable to, "take a deep breath." She feels she is unable to take a deep breath due to pain. She also complains of a dry cough that makes chest pain worse. Nothing makes pain better except sitting. She has been taking Tylenol at home without relief. Due to symptoms persistently getting worse she opted to present to ED today. She has been taking her medications as prescribed. She has had significant poor intake over the past week due to pain and ill feeling. Currently she denies any fever, chills, sweats, lightheadedness, dizziness, shortness of breath at rest, hemoptysis, nausea, vomiting, abdominal pain, change in bowel or urinary habits. She does feel that her lower extremities are much more swollen than usual. She does have wounds to her left leg in which she states she goes to wound care. In ED patient made hemodynamically stable although initially mildly hypotensive. She did receive gentle IV fluid due to evidence of CASH with creatinine elevated to 1.87. Further lab abnormalities include chronic anemia with a stable hemoglobin at 9.3 and hematocrit of 29.7, anion gap acidosis with a bicarb of 10, glucose 175, high-sensitivity troponin 30.9. She underwent chest CT which revealed an acute mildly displaced and angulated fracture of the mid sternal body with trace retrosternal hemorrhage as well as subtle age-indeterminate fractures of the anterior left fourth and fifth ribs. Noted was marked cardiomegaly with mild pulmonary edema and trace pleural effusions. ED provider discussed case with [facility] Trauma service Dr. Clark and felt no need for acute intervention but conservative management and pain control. Allergies Allergy/AdvReac Type Severity Reaction Status Date / Time citalopram Allergy Unknown Unknown Verified 07/26/21 07:19 paroxetine Allergy Unknown Unknown Verified 07/26/21 07:19 Sulfa (Sulfonamide Allergy Unknown TOLERATES Verified 07/26/21 07:19 Antibiotics) LASIX venom-wasp protein Allergy Unknown HIVES Verified 07/26/21 07:19 celecoxib AdvReac Mild N/V Verified 07/26/21 07:19 Home Medications Medication Instructions Recorded Confirmed Type atorvastatin 40 mg tablet 40 mg PO HS 12/13/20 07/26/21 History levothyroxine 75 mcg tablet 75 mcg PO HS 12/13/20 07/26/21 History losartan 50 mg tablet 50 mg PO HS 12/13/20 07/26/21 History magnesium oxide 400 mg PO HS 12/13/20 07/26/21 History rizatriptan 5 mg tablet 5 mg PO DIRECTED PRN 12/13/20 07/26/21 History spironolactone 25 mg tablet 12.5 mg PO HS 12/13/20 07/26/21 History allopurinol 300 mg tablet 300 mg PO HS 03/05/21 07/26/21 History cholecalciferol (vitamin D3) 25 25 mcg PO HS 03/05/21 07/26/21 History mcg (1,000 unit) tablet digoxin 125 mcg (0.125 mg) tablet 125 mcg PO DAILY@199903/05/21 07/26/21 History epinephrine 0.3 mg/0.3 mL 0.3 mg IM Q4H PRN 03/05/21 07/26/21 History injection, auto-injector gabapentin 300 mg capsule 300 mg PO HS 03/05/21 07/26/21 History hydrocodone 5 mg-acetaminophen 325 1 tab PO Q6 PRN 03/05/21 07/26/21 History mg tablet metoprolol succinate 200 mg 200 mg PO BID 06/11/21 07/26/21 History tablet,extended release 24 hr vitamins A,C,G-jhev-ihehos 14,320 1 cap PO HS 06/11/21 07/26/21 History unit-226 mg-200 unit capsule (PreserVision AREDS) insulin lispro 100 unit/mL 1 unit SUBCUT UD #0 ml 06/16/21 07/26/21 Rx subcutaneous pen (Humalog KwikPen (U-100) Insulin) insulin glargine 100 unit/mL (3 13 unit SUBCUT QAM ml 06/30/21 07/26/21 History mL) subcutaneous pen (Lantus Solostar U-100 Insulin) furosemide 40 mg tablet 20 mg PO DAILY 07/20/21 07/26/21 History Past Med/Surg History Medical History Afib Cerebral hemorrhage "2010 left hemiparesis" Chronic anemia Chronic combined systolic and diastolic CHF (congestive heart failure) Diabetes mellitus, type II Gout Hematoma of rectus sheath Hemiplegia History of - cerebrovascular accident HLD (hyperlipidemia) HTN (hypertension) Hypothyroidism Pacemaker Presence of IVC filter Tachy-jodi syndrome Surgical History Status post appendectomy Status post cardiac pacemaker procedure Status post cataract extraction Status post cholecystectomy Status post hysterectomy Status post insertion of inferior vena caval filter Family History Daughter Breast cancer Mother Cancer pancreatic Father Heart disease Social History Smoking Status: Never smoker Second Hand Exposure: No; Hx Alcohol Use: No Hx Substance Use: No Preferred Language: Czech Communication Ability: Effective Ripsaw Operator Required: No Beliefs That Will Affect Care: None marital status: Current Living Situation: Spouse Current Living Situation Comment: patient lives at home with , who is her primary caregiver Feels Safe at Home: Yes Assistive Devices: Walker Review of Systems Review of Systems: All systems reviewed & are unremarkable except as noted in HPI & below Physical Exam Physical Exam: Constitutional: Elderly F, appears in pain, WD/WN, vitals as above, sitting up in bed, pleasant, conversing easily Head: Normocephalic, +L sided facial ecchymosis with L frontal scalp hematoma Eyes: PERRL, conjunctivae normal, anicteric sclerae ENMT: external ear and nose normal, oropharynx normal dry membranes Neck: trachea midline, no thyromegaly normal visual inspection Respiratory: decreased respiratory effort with shallow breathing, lungs clear to auscultation, no wheeze, rales, rhonchi. No accessory muscle use Cardiovascular: RRR, 1/6 RUDY noted RUSB, +1-2 pretibial and prox thigh edema with b/l venous stasis changes noted, L pretibial area with superficial wounds, RLE with erythema Vessels: no JVD or carotid bruit Chest: normal inspection of chest , no chest wall ecchymosis, pain to palpation Abdomen: normal bowel sounds, soft, nontender, Musculoskeletal: no cyanosis or clubbing, AROM Skin: no rashes, warm and dry normal turgor Neurologic: PERRL, EOMI, accommodation nl, no face palsy, no dysarthria CN's II-XI intact bilaterally and moves all extremities Psychiatric: A+Ox3, euthymic affect Lymphatic: no cervical or axillary lymphadenopathy : deferred Results & Data Results & Data ([facility]) Vital Signs (Past 12 Hours) Vital Signs Temp Pulse Pulse Resp BP BP Pulse Ox 07/26/21 10:00 63 18 123/59 L 94 07/26/21 08:01 102/58 L 07/26/21 07:56 65 20 90/54 L 100 07/26/21 05:37 96 07/26/21 05:27 37.2 C 64 24 120/70 [address] 07/26/21 08:05 CT chest diagnostic wo con CT DOSE: 226.10 mGy.cm CLINICAL HISTORY: 81 years-old Female with cp, sob, s/p fall. Acute chest trauma status post fall TECHNIQUE: Multiaxial CT images of the chest were performed without contrast. A dose lowering technique was utilized adhering to the principles of ALARA. COMPARISON: CT abdomen and pelvis 07/20/2021, CTA chest 01/02/2010 FINDINGS: Calcifications of the thyroid. No pathologically enlarged lymph nodes are identified. There is marked cardiomegaly with small pericardial effusion. Left subclavian pacer. Extensive coronary artery calcifications. Advanced atherosclerosis of the thoracic aorta descending tortuosity. Dilated pulmonary artery suggestive of pulmonary artery hypertension. Trace pleural effusions. Intralobular septal thickening with intermixed groundglass densities. Mild dependent subsegmental bibasilar atelectasis. No pneumothorax. Decreased AP dimension of the trachea and bronchi may represent tracheobronchomalacia. Mild bibasilar mucous plugging. No acute of the imaged upper abdomen. Secretions are noted within the mid esophagus. Moderate sized hiatal hernia. Mild generalized body wall edema. Degenerative changes of the shoulders and spine. There is an acute mildly displaced and angulated fracture involving the mid sternal body. Trace retrosternal hemorrhage within the anterior mediastinum. Subtle angulation of the anterior fourth and fifth ribs suggests age-indeterminate fractures. No acute displaced rib fracture identified. IMPRESSION: 1. Acute mildly displaced and angulated fracture of the mid sternal body with trace retrosternal hemorrhage. 2. Subtle age-indeterminate fractures of the anterior left fourth and fifth r ibs. No acute displaced rib fracture or pneumothorax. 3. Marked cardiomegaly with mild pulmonary edema and trace pleural effusions. 4. Pulmonary artery hypertension. 5. Moderate sized hiatal hernia. ACT 112: Negative or not required by law. Electronically signed by: Sarthak Quigley M.D. 07/26/2021 9:15 AM Medications Administered Current Inpatient Medications Fentanyl Citrate (Fentanyl Citrate 100 Mcg/2 Ml Vial) 50 mcg IV Q15M PRN PRN Reason: Pain Stop: 08/09/21 05:43 Last Admin: 07/26/21 07:53 Dose: 50 mcg Documented by: Sodium Chloride (Nss 1000ml) 1,000 mls @ 125 mls/hr IV .Q8H ANGELINE Stop: 08/25/21 05:44 Last Admin: 07/26/21 06:10 Dose: 125 mls/hr Documented by: ECG Rate (beats per minute): 64 Rhythm: normal sinus Findings: + paced rhythm COVID-19 Results Results COVID-19 Adm Lab Results: RBC 2.96 M/uL (4.2-5.4) L 07/26/21 WBC 6.78 K/uL (4.8-10.8) 07/26/21 Hgb 9.3 g/dL (12.0-16.0) L 07/26/21 Hct 29.7 % (37-47) L 07/26/21 Plt Count 194 K/uL (130-400) 07/26/21 Neutrophils (%) (Auto) 71.1 % 07/26/21 Lymphocytes (%) (Auto) 12.2 % 07/26/21 Monocytes # (Auto) 0.81 K/uL (0.11-0.59) H 07/26/21 Eosinophils # (Auto) 0.29 K/uL (0-0.5) 07/26/21 Immature Granulocyte % (Auto) 0.1 % 07/26/21 Neutrophils # (Auto) 4.81 K/uL (1.4-6.5) 07/26/21 Lymphocytes # (Auto) 0.83 K/uL (1.2-3.4) L 07/26/21 Monocytes # (Auto) 0.81 K/uL (0.11-0.59) H 07/26/21 Eosinophils # (Auto) 0.29 K/uL (0-0.5) 07/26/21 Basophils # (Auto) 0.03 K/uL (0-0.2) 07/26/21 Immature Granulocyte # (Auto) 0.01 K/uL (0.00-0.02) 07/26/21 Na 136 mmol/L (136-145) 07/26/21 K 5.1 mmol/L (3.5-5.1) 07/26/21 Cl 112 mmol/L (98-107) H 07/26/21 CO2 10 mmol/L (21-32) L 07/26/21 Anion Gap 14 (3-11) H 07/26/21 BUN 74 mg/dl (6-23) H 07/26/21 Creatinine 1.87 mg/dl (0.6-1.2) H 07/26/21 BUN/Creatinine Ratio 39.6 (10-20) H 07/26/21 Glucose Level 175 mg/dl (70-99(Fasting)) H 07/26/21 Ca 9.2 mg/dl (8.5-10.1) 07/26/21 Total Bilirubin 0.5 mg/dl (0.2-1.0) 07/26/21 AST/SGOT 22 U/L (13-39) 07/26/21 ALT/SGPT 25 U/L (7-52) 07/26/21 Alkaline Phosphatase 152 U/L (34-104) H 07/26/21 Total Protein 7.9 gm/dl (6.0-8.3) 07/26/21 Albumin 4.0 gm/dl (3.4-5.0) 07/26/21 Globulin 3.9 gm/dl (2.5-4.0) 07/26/21 Albumin/Globulin Ratio 1.0 (0.9-2) 07/26/21 SARS-CoV-2, RNA, NAAT NEGATIVE (NEGATIVE) 07/26/[address] 07/26/21 Code Status & VTE Plan Code Status FULL CODE VTE Prophylaxis Plan VTE Prophylaxis will be ordered: Yes Supervising Physician Co-Signing Physician Notes Patient is a 81-year-old female with multiple comorbidities presents with history of chest pain associated with shortness of breath, cough for 1 week duration. Patient sustained a mechanical fall 1 week ago in her kitchen while using a walker resulting in head and chest trauma and admits to have passed out for about 15 minutes. She reports having dizziness intermittently for the past week. Also reports having chest pain since 1 week which increases with deep breathing and movement, associated with cough mostly nonproductive and shortness of breath. Patient was evaluated in ED 1 week ago but was discharged home at that time. Please review HPI for complete details of presentation. Patient was initially hypotensive while in ED, blood pressure improved with IV fluids. Blood work suggestive of hemoglobin 9.3, normal white blood cell count and platelets. Also noted bicarbonate 10, anion gap 14, BUN elevated at 74, potassium 5.1, creatinine 1.87. High-sensitivity troponin elevated at 30.9. CT head suggestive of leftscalp hematoma contusions but otherwise unremarkable. CT chest showed acute mildly displaced and angulated fracture of the mid sternal body with trace retrosternal hemorrhage. Also noted age indeterminant anterior left fourth and fifth rib fractures and findings suggestive of mild pulmonary edema with trace pleural effusion. ER physician discussed with CT surgeon Dr. Clark who suggested no acute intervention at this time. He recommends pain control, trending troponins. On exam patient is moderately built and nourished, chronically appearing, elderly, normocephalic, left facial ecchymosis, left scalp hematoma, + sutures, EOMI, decreased breath sounds, clear to auscultation, no accessory muscle use, S1-S2,+ murmur, tender to palpate sternal region,+ pacer on left side, abdomen soft, nontender, normal bowel sounds, alert, awake, oriented, grossly no focal deficits, bilateral lower extremity edema present, left lower extremity wound with minimal erythema noted. Patient is admitted for management of sternal fracture, left anterior rib fractures, CASH, anion gap metabolic acidosis and elevated troponin. Pain control, PT OT, fall precautions. Check resting echo and trend cardiac enzymes and repeat EKG in the morning. Consider cardiology evaluation if needed. Incentive spirometry ordered. Will hold losartan, Aldactone and give gentle IV fluids with bicarbonate to help with CASH and metabolic acidosis. Monitor potassium levels. Also closely monitor volume status given history of CHF. May need Placement. I personally reviewed the record. Patient is interviewed and examined at bedside. Patient's care is coordinated with Brenda Hurd PA-C. Please refer to the documentation above for details of patient's presentation and for discussion of other issues. (1) CHI (closed head injury) Encounter type: initial encounter Qualified Code(s): S09.90XA - Unspecified injury of head, initial encounter
[2021-07-26] MEDS ORDERED: STAT IV STA ×2 (10:43→22:39)
--- NOTE | 2021-07-26 11:36 | CT Scan Report ---
CT head/brain wo con CLINICAL HISTORY: 81 years-old Female with headache, recent fall, dizzy. Acute head trauma status po st fall TECHNIQUE: Multiple axial CT images of the head were obtained without contrast. A dose lowering tech nique was utilized adhering to the principles of ALARA. CT DOSE: 729.78 mGycm COMPARISON: Head CT 07/20/2021 FINDINGS: No acute intracranial hemorrhage, midline shift, intracranial mass, hydrocephalus, territorial ischem ia or abnormal extra-axial collection. Age-related involutional changes with ex vacuo ventriculomegal y. White matter hypodensities suggest chronic microvascular ischemic disease. Cerebral vascular calci fications. Encephalomalacia of the left cerebellar hemisphere again noted. Senescent calcifications o f the basal ganglia. The calvarium is intact. Complete opacification of the left sphenoid sinus. Resolution of the previously described left maxill jack sinus air-fluid level. Left frontal and temporal scalp contusions are redemonstrated. The subcuta neous nodules are unchanged. Prior bilateral lens repair. IMPRESSION: 1. No acute intracranial abnormality or calvarial fracture. 2. Left scalp contusions redemonstrated. ACT 112: Negative or not required by law. The above report was generated using voice recognition software. It may contain grammatical, syntax o r spelling errors. Electronically signed by: Sarthak Quigley M.D. 07/26/2021 11:33 AM
[2021-07-26] MEDS ORDERED: PHARMACY GLYCEMIC MGMT CONSULT PRN (12:40)
[2021-07-26] MEDS ORDERED: CARBOHYDRATES FOR HYPOGLYCEMIA PO PRN (12:40)
[2021-07-26] MEDS ORDERED: GLUCOSE 40% GEL 15 GM TUBE PO PRN (12:40)
[2021-07-26] MEDS ORDERED: oxyCODONE HCL IR 5 MG TAB (IMMEDIATE RELEASE) PO PRN (12:40)
[2021-07-26] MEDS ORDERED: GLUCOSE 10 TABS/TUBE PO PRN (12:40)
[2021-07-26] MEDS ORDERED: ALUMINUM/MAGNESIUM SUSP 30 ML UDC PO PRN (12:40)
[2021-07-26] MEDS ORDERED: GLUCAGON FOR INJ 1 MG VIAL SQ PRN (12:40)
[2021-07-26] MEDS ORDERED: ACETAMINOPHEN 325 MG TAB PO PRN (12:40)
[2021-07-26] MEDS ORDERED: POLYETHYLENE (MIRALAX) 17 GM PACK PO PRN (12:40)
[2021-07-26] MEDS ORDERED: MAGNESIUM HYDROXIDE SUSP 30 ML UDC PO PRN (12:40)
[2021-07-26] MEDS ORDERED: DEXTROSE 50% 50 ML SYRINGE IV PRN (12:40)
[2021-07-26] MEDS ORDERED: SODIUM BICARBONATE 8.4% 75 MEQ in SODIUM CHLORIDE 0.45 % 1,000 ML IV ONE (13:10)
[2021-07-26] MEDS: INSULIN ASPART PER UNIT SC SCH ×3 (14:04→22:47)
[2021-07-26] MEDS: ACETAMINOPHEN 500 MG TAB PO SCH ×3 (14:17→23:22)
--- NOTE | 2021-07-26 14:26 | Pharmacy Report ---
Pharmacy Glycemic Short Note 2 - Date of Service July 26, 2021 - Glycemic Short BSG Results (Last 24 hours): 07/26/21 07/26/21 05:48 13:40 Glucose 175 H POC Glucose 179 H OUTPATIENT ANTIDIABETIC REGIMEN: * Per patient: * Lantus 13 units SC daily * Humalog 5-6 units SC TIDM * HbA1c: 11.6% (06/11/21) ASSESSMENT: * CO is a 81 year old female with multiple rib fractures secondary to recent mechanical fall * BSG of 175 and 179 mg/dL so far since admission * Variable insulin needs based on prior admission data, will be conservative with initial insulin dosing * Also presents with CASH (SCr 1.87 vs. baseline SCr ~0.8) PLAN FOR INPATIENT GLYCEMIC CONTROL: * Basal insulin * Lantus 0-10 units SQ HS (see EHR for details) * Bolus insulin * NovoLog per scale ACHS or Q6hrs while NPO * Goal Range: Low 110 mg/dL - High 140 mg/dL * Correction Factor: 30 mg/dL/unit * Nutritional / Prandial insulin per carb ratio of 1 unit per 10 grams CHO consumed
[2021-07-26] MEDS: LIDOCAINE 5% 1 PATCH TD SCH (14:30)
[2021-07-26] MEDS: MoRPHine SULFATE 2 MG/ML CARP IV PRN ×2 (15:48→20:24)
[2021-07-26] MEDS ORDERED: DIGOXIN 0.125 MG TAB PO SCH (20:00)
[2021-07-26] MEDS ORDERED: NALOXONE HCL 0.4 MG/1 ML VIAL/CARP IV STA (20:54)
[2021-07-26] MEDS ORDERED: SODIUM CHLORIDE 0.9% 500 ML IV SCH (21:00)
[2021-07-26] MEDS ORDERED: METOPROLOL SUCC 50MG EXT REL TAB PO SCH (21:00)
[2021-07-26] MEDS ORDERED: MAGNESIUM OXIDE 400 MG TAB PO SCH (21:00)
[2021-07-26] MEDS ORDERED: GABAPENTIN 300 MG CAP PO SCH (21:00)
[2021-07-26] MEDS ORDERED: DOXYCYCLINE HYCLATE 100 MG CAP PO SCH (21:00)
[2021-07-26] MEDS ORDERED: INSULIN GLARGINE SOLOSTAR 100 UNITS/ML 3 ML PEN SC SCH ×2 (21:00)
[2021-07-26 21:20] LABS: Allen Test POS (Pos); Base Excess ABG -15.4 mEq/L (-9-1.8); HCO3 ABG 10 mmol/L (19-24); Oxygen Saturation ABG 96.3 % (90-95); PCO2 ABG 24 mmHg (35-46); PO2 ABG 87 mmHg (80-95); pH ABG 7.25 (7.35-7.45)
[2021-07-26 21:49] LABS: Thyroid Stimulating Hormone 7.319 uIu/ml (0.300-4.500)
[2021-07-26 22:24] LABS: T4 Free Thyroxine 0.66 ng/dl (0.61-1.60)
[2021-07-26] MEDS ORDERED: SODIUM BICARBONATE 8.4% 75 MEQ in SODIUM CHLORIDE 0.45 % 1,000 ML IV SCH (22:45)
[2021-07-26] MEDS: ATORVASTATIN 40 MG TAB PO SCH (23:22)
[2021-07-26] MEDS: CHOLECALCIFEROL 1,000 UNITS 25 MCG TAB PO SCH (23:22)
[2021-07-26] MEDS: LEVOTHYROXINE SODIUM 75 MCG TABLET PO SCH (23:23)
[2021-07-26] MEDS: MULTIVITAMIN TAB PO SCH (23:24)
[2021-07-26] MEDS ORDERED: PIPERACILL/TAZOBAC CONSULT ACTIVE PRN (23:30)
[2021-07-27] MEDS ORDERED: PIPERACILLIN/TAZOBACTAM 3.375 GM in DEXTROSE 5% 100 ML IV ONE (00:15)
[2021-07-27] MEDS ORDERED: DOXYCYCLINE HYCLATE 100 MG in DEXTROSE 5% 100 ML IV SCH (00:30)
[2021-07-27] MEDS ORDERED: VANCOMYCIN CONSULT ACTIVE PRN (01:42)
[2021-07-27] MEDS ORDERED: INSULIN ASPART PER UNIT SC SCH (02:00)
[2021-07-27 02:17] LABS: Eosinophils # (auto) 0.12 K/uL (0-0.5); Eosinophils % (auto) 2.1 %; Hematocrit (blood only) 24.8 % (37-47); Immature Granulocytes # (auto) 0.02 K/uL (0.00-0.02); Immature Granulocytes % (auto) 0.3 %; Lymphocytes # (auto) 0.52 K/uL (1.2-3.4); Mean Corpuscular Hemoglobin 31.1 pg (25-34); Mean Corpuscular Volume 96.5 fL (80-100); Mean Platelet Volume 9.3 fL (7.4-10.4); Monocytes # (auto) 0.84 K/uL (0.11-0.59); Monocytes % (auto) 14.6 %; Neutrophils # (auto) 4.27 K/uL (1.4-6.5); Platelet Count 131 K/uL (130-400); RDW Coefficient of Variation 17.6 % (11.5-14.5); RDW Standard Deviation 61.5 fL (36.4-46.3); Red Blood Count 2.57 M/uL (4.2-5.4); White Blood Count 5.77 K/uL (4.8-10.8)
[2021-07-27 02:24] LABS: Mean Corpuscular Hgb Conc 32.3 g/dL (32-36)
[2021-07-27 02:57] LABS: BUN Creatinine Ratio 36.8 (10-20); Calcium 8.1 mg/dl (8.5-10.1); Creatinine Clr Calc Pharmacy 19.7 ml/min; Est GFR (African American) 26.7 ml/min; Potassium 5.1 mmol/L (3.5-5.1)
[2021-07-27] MEDS ORDERED: SODIUM BICARB 8.4% INJ 50 MEQ/50 ML SYR IV STA (02:57)
[2021-07-27] MEDS ORDERED: SODIUM BICARBONATE 8.4% 150 MEQ in SODIUM CHLORIDE 0.45 % 1,000 ML IV SCH (02:58)
[2021-07-27] MEDS ORDERED: VANCOMYCIN HCL 1,250 MG in SODIUM CHLORIDE 0.9% 250 ML IV ONE (03:00)
[2021-07-27 03:11] LABS: iSTAT Allen Test Pass; iSTAT Art Bld Gas pCO2 Correct 22 mmHg (35-46); iSTAT Art Bld Gas pH Corrected 7.253 (7.35-7.45); iSTAT Arterial Blood Gas HCO3 10 meg/L (19-24); iSTAT Arterial Blood Gas pCO2 21 mmHg (35-46); iSTAT Arterial Blood Gas pH 7.26 (7.35-7.45); iSTAT Arterial Blood Gas pO2 66 mmHg (80-95); iSTAT Arterial Blood Gas pO2 C 69; iSTAT Carbon Dioxide 10 mmol/L (24-31); iSTAT Hematocrit 26 % (37-47); iSTAT Hemoglobin 8.8 g/dl (12.0-16.0); iSTAT Potassium 5.1 mmol/L (3.3-5.0); iSTAT Site R Radial; iSTAT Sodium 136 mmol/L (135-144)
[2021-07-27 03:13] LABS: Albumin Globulin Ratio 1.1 (0.9-2); Albumin Level 3.5 gm/dl (3.4-5.0); Bilirubin,Total 0.5 mg/dl (0.2-1.0); Globulin 3.3 gm/dl (2.5-4.0); Total Protein 6.8 gm/dl (6.0-8.3)
[2021-07-27] MEDS ORDERED: NALOXONE HCL 0.4 MG/1 ML VIAL/CARP IV STA ×4 (03:22→11:06)
[2021-07-27] MEDS ORDERED: NALOXONE HCL 0.4 MG/1 ML VIAL/CARP ONE ×2 (03:23→08:10)
--- NOTE | 2021-07-27 04:17 | Critical Care Consultation ---
Date of Consultation July 27, 2021 Assessment & Plan (1) High anion gap metabolic acidosis: Reason Critically Ill: 81-year-old female presents to the ICU with recent fall and sternal fracture and multiple rib fractures, now presents to the ICU with acute renal failure and acute encephalopathy Neuro - Acute encephalopathy: Likely multifactorial as patient is currently in acute renal failure with elevated BUN. Patient is also received narcotics for pain control, and was responsive to 0.4 Narcan on arrival to the ICU. -Patient did also have a fall approximately 1 week ago and has a large hematoma on the face. However CT head continues to be without acute intracranial findings. 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 As for now she is currently maintaining her airway and responsive. Continue to monitor in ICU for now Cardiac - Hypotensionresolved following Narcan bolus. Patient does have diastolic heart failure with ejection fraction of 50% and marked cardiomegaly. She also has history of A. fib, tachybradycardia syndrome and currently has pacemaker. We will hold on further fluid boluses to avoid CHF exacerbation. We will hold on diuresis at this time and hold antihypertensives for the time being. She does have elevated troponin, which could be due to renal failure. EKG and paced rhythm. We will continue to trend troponins for now. Continue monitoring on telemetry. Atrial fibrillationpatient currently in paced rhythm. Hold MTP in the setting of hypotension. Continue digoxin. Holding anticoagulation following sternal and facial hematoma. Continue to monitor on telemetry Respiratory - Currently maintaining oxygen saturation on room air. CT chest did show bibasilar atelectasis, which suspect is likely due to rib/sternal fractures. But no concern for active pulmonary disease at the time. Mild tachypnea likely compensatory for metabolic acidosis. Could consider BiPAP if this worsens however the patient is currently without labored breathing. Continuous monitoring pulse ox GI - N.p.o. for now RENAL/LYTES - Acute renal failurepatient with creatinine of 2.0, with baseline 0.7. Suspect this may be ATN due to prior hypotension -Patient does have partially compensated high anion gap metabolic acidosis and elevated BUN of 72. No lactic acidosis -pH 7.26/CO2 22/HCO3 10. 1 amp bicarb given and bicarb drip concentration increased from 75 mEq to 150 mEq at 100 mL/h -Consulted nephrology, will follow up recommendations -Continue to monitor routine BMPs. Treat electrolytes as indicated - Gonzalez insertedcontinue to monitor strict I's and the ENDO - DM type II, uncontrolledlast hemoglobin A1c 11.6. -Currently euglycemic, continue sliding scale. -ICU hyperglycemic protocol Hypothyroidcontinue Synthroid HEME - H&H stable, monitor routine CBCs Ortho Patient with acute mildly displaced and angulated fracture at the mid sternal body with trace retrosternal hemorrhage and anterior L fourth and fifth rib fractures. Case was discussed with trauma service at [facility] [place] on admission and no acute intervention was required. Continue with conservative management. ID - No clear indications for infectious process at this time. No leukocytosis, lactic acidosis, and procalcitonin within normal limits. Patient did have low-grade fever although she was on a Kendra hugger at the time and previously been hypothermic. She did have positive nasal MRSA. Blood culture and urine culture is pending. We will keep on broad-spectrum antibiotics for the time being, vancomycin and Zosyn. LINES/IV ACCESS - Peripheral IVs DVT PROPHYLAXIS - SCDs I have personally spent 50 minutes of critical care time in the direct management of this patient. This is a life/limb threatening event. This includes time spent evaluating patient, direct bedside care, chart review, placing orders, interpretation of diagnostic studies, discussion with consultants, patient, and family members, as well as other required patient management activities. This time is exclusive of all separately billable procedures, and teaching time and separate from and in addition to any other critical care service time. Thank you for allowing us to participate in the care of this patient. Please refer to my attending physician's documentation for any further recommendations. (2) CASH (acute kidney injury): (3) Multiple rib fractures: (4) Chest pain: (5) Sternal fracture: (6) Fall: (7) Facial lesion: (8) Encephalopathy: (9) Acute alteration in mental status: (10) Type II diabetes mellitus, uncontrolled: (11) Atrial fibrillation: (12) Elevated troponin: (13) HTN (hypertension): (14) HLD (hyperlipidemia): (15) Tachy-jodi syndrome: (16) Diastolic heart failure: History of Present Illness Attending Physician: Ricco Sebastian MD History of Present Illness Patient is a 81-year-old female with past medical history significant for uncontrolled type 2 diabetes, PAF (previously on warfarin), history of tachybradycardia syndrome (post pacemaker), chronic diastolic heart failure, hypothyroid, HTN, HLD who presented to the emergency department yesterday morning. She was recently seen in the emergency department a week ago following a fall where she sustained trauma to her face and had a contusion. She was seen yesterday with complaints that she was feeling short of breath and was unable to take deep breath, dry cough, and worsening chest pain. Patient reported having poor oral intake over the past week as well. She was found to have CASH and high anion gap metabolic acidosis with bicarb of 10, along with elevated troponin. CT chest revealed acute mildly displaced angulated fracture of the mid sternal body with trace retrosternal hemorrhage as well as subtle angle intermediate fractures of the anterior left fourth and fifth ribs. [facility] trauma services were contacted after these results, and did not recommend transfer and only conservative management and pain control. Patient was admitted on PCU where she was undergoing treatment. This evening patient became obtunded and eventually became unresponsive. She was taken for CT head, chest, and abdomen and then transferred to the ICU. CT results were unremarkable. Patient did receive 0.4 of Narcan on arrival to the ICU and did become more responsive following this dose. Her high-sensitivity troponin did increase. She was placed on bicarb drip yesterday, however metabolic acidosis persist and she was given additional amp of bicarb and concentration increased. Nephrology consulted as well. Patient to remain in ICU for further management at this time. At the moment patient continues to be somewhat confused and lethargic but is arousable and maintaining her airway. She was mildly hypotensive on PCU but blood pressure did increase following Narcan dose without other intervention. She currently denies any headaches, dizziness, sore throat or cough, shortness of breath, chest pain, palpitations, abdominal pain, nausea or vomiting or diarrhea. Allergies Allergy/AdvReac Type Severity Reaction Status Date / Time citalopram Allergy Unknown Unknown Verified 07/26/21 07:19 paroxetine Allergy Unknown Unknown Verified 07/26/21 07:19 Sulfa (Sulfonamide Allergy Unknown TOLERATES Verified 07/26/21 07:19 Antibiotics) LASIX venom-wasp protein Allergy Unknown HIVES Verified 07/26/21 07:19 celecoxib AdvReac Mild N/V Verified 07/26/21 07:19 Home Medications Medication Instructions Recorded Confirmed Type atorvastatin 40 mg tablet 40 mg PO HS 12/13/20 07/26/21 History levothyroxine 75 mcg tablet 75 mcg PO HS 12/13/20 07/26/21 History losartan 50 mg tablet 50 mg PO HS 12/13/20 07/26/21 History magnesium oxide 400 mg PO HS 12/13/20 07/26/21 History rizatriptan 5 mg tablet 5 mg PO DIRECTED PRN 12/13/20 07/26/21 History spironolactone 25 mg tablet 12.5 mg PO HS 12/13/20 07/26/21 History allopurinol 300 mg tablet 300 mg PO HS 03/05/21 07/26/21 History cholecalciferol (vitamin D3) 25 25 mcg PO HS 03/05/21 07/26/21 History mcg (1,000 unit) tablet digoxin 125 mcg (0.125 mg) tablet 125 mcg PO DAILY@199903/05/21 07/26/21 History epinephrine 0.3 mg/0.3 mL 0.3 mg IM Q4H PRN 03/05/21 07/26/21 History injection, auto-injector gabapentin 300 mg capsule 300 mg PO HS 03/05/21 07/26/21 History hydrocodone 5 mg-acetaminophen 325 1 tab PO Q6 PRN 03/05/21 07/26/21 History mg tablet metoprolol succinate 200 mg 200 mg PO BID 06/11/21 07/26/21 History tablet,extended release 24 hr vitamins A,C,J-ifet-fqybjr 14,320 1 cap PO HS 06/11/21 07/26/21 History unit-226 mg-200 unit capsule (PreserVision AREDS) insulin lispro 100 unit/mL 1 unit SUBCUT UD #0 ml 06/16/21 07/26/21 Rx subcutaneous pen (Humalog KwikPen (U-100) Insulin) insulin glargine 100 unit/mL (3 13 unit SUBCUT QAM ml 06/30/21 07/26/21 History mL) subcutaneous pen (Lantus Solostar U-100 Insulin) furosemide 40 mg tablet 20 mg PO DAILY 07/20/21 07/26/21 History Patient History Medical History Afib Cerebral hemorrhage "2010 left hemiparesis" Chronic anemia Chronic combined systolic and diastolic CHF (congestive heart failure) Diabetes mellitus, type II Gout Hematoma of rectus sheath Hemiplegia History of - cerebrovascular accident HLD (hyperlipidemia) HTN (hypertension) Hypothyroidism Pacemaker Presence of IVC filter Tachy-jodi syndrome Surgical History Status post appendectomy Status post cardiac pacemaker procedure Status post cataract extraction Status post cholecystectomy Status post hysterectomy Status post insertion of inferior vena caval filter Family History Daughter Breast cancer Mother Cancer pancreatic Father Heart disease Social History Smoking Status: Never smoker Second Hand Exposure: No; Hx Alcohol Use: No Hx Substance Use: No Preferred Language: Kazakh Communication Ability: Effective Project Management Engineer Required: No Beliefs That Will Affect Care: None marital status: Current Living Situation: Spouse Current Living Situation Comment: patient lives at home with , who is her primary caregiver Other Information That Helps Us Care for You: No Feels Safe at Home: Yes Safety Concerns: Feels Safe At This Time Assistive Devices: Glasses Review of Systems Review of Systems: All systems reviewed & are unremarkable except as noted in HPI & below Physical Exam Constitutional: WD/WN, vitals as above + frail appearing and + lethargic; no acute distress Eyes: PERRL, conjunctivae normal, anicteric sclerae ENMT: external ear and nose normal, oropharynx normal Neck: trachea midline, no thyromegaly Respiratory: normal respiratory effort, lungs clear to auscultation Cardiovascular: RRR, no murmur, no edema Heart Sounds: no murmur Vessels: + JVD Extremities: + edema Paced rhythm on monitor Gastrointestinal (Abdomen): normal bowel sounds, soft, nontender, no hepatosplenomegaly Musculoskeletal: no cyanosis or clubbing, extremities motor strength 5/5 Skin: Lower extremity edema with bilateral cellulitis. Skin warm to touch. Neurologic: PERRL, EOMI, accommodation nl, no face palsy, no dysarthria Psychiatric: Orientation: oriented to person; + not oriented to place and + not oriented to time Eye Contact: + poor eye contact Lethargic Genitourinary: Indwelling Gonzalez catheter Results & Data Results & Data ([facility]) Vital Signs (Past 12 Hours) Vital Signs Temp Pulse Pulse Resp BP BP Pulse Ox 07/27/21 01:39 38.2 C H 65 12 88/46 L 92 07/26/21 23:22 60 07/26/21 22:54 38.2 C H 60 22 94/52 L 95 07/26/21 22:18 62 07/26/21 19:15 35.4 C L 60 20 94/62 L 97 07/26/21 17:38 34.2 C L Coding Level of Care Code Critical Care 1st 30-74 mins Diagnoses High anion gap metabolic acidosis E87.2 CASH (acute kidney injury) N17.9 Multiple rib fractures S22.49XA Chest pain R07.9 Sternal fracture S22.20XA Fall W19.XXXA Encounter type: initial encounter Facial lesion L98.9 Encephalopathy G93.40 Acute alteration in mental status R41.82 Type II diabetes mellitus, uncontrolled E11.65 Atrial fibrillation I48.91 Elevated troponin R77.8 HTN (hypertension) I10 HLD (hyperlipidemia) E78.5 Tachy-jodi syndrome I49.5 Diastolic heart failure I50.30 (1) Fall Encounter type: initial encounter Qualified Code(s): W19.XXXA - Unspecified fall, initial encounter
[2021-07-27 04:48] LABS: Appearance Urine Clear (Clear); Bacteria Urine Automated Negative (Negative); Bilirubin Urine Negative (Negative); Blood Urine 2+ (Negative); Color Urine Yellow; Epithelial Cell Urine Auto 20-30 /lpf (0-5); Glucose Urine UA Negative (Negative); Ketones Urine Negative (Negative); Leukocyte Esterase Urine 2+ (Negative); Nitrite Urine Negative (Negative); Protein Urine 1+ (Negative); RBC Urine Automated 0-4 /hpf (0-4); Specific Gravity Urine 1.031 (1.000-1.030); Urobilinogen Urine Negative (Negative); WBC Urine Automated >30 /hpf (0-5)
[2021-07-27 05:25] LABS: Eosinophils % (auto) 1.6 %; Hematocrit (blood only) 25.9 % (37-47); Hemoglobin 8.3 g/dL (12.0-16.0); Immature Granulocytes # (auto) 0.03 K/uL (0.00-0.02); Immature Granulocytes % (auto) 0.5 %; Lymphocytes # (auto) 0.51 K/uL (1.2-3.4); Lymphocytes % (auto) 8.3 %; Mean Corpuscular Hemoglobin 30.9 pg (25-34); Mean Corpuscular Volume 96.3 fL (80-100); Mean Platelet Volume 10.6 fL (7.4-10.4); Monocytes # (auto) 0.73 K/uL (0.11-0.59); Monocytes % (auto) 11.9 %; Neutrophils # (auto) 4.76 K/uL (1.4-6.5); Neutrophils % (auto) 77.7 %; Platelet Count 159 K/uL (130-400); RDW Coefficient of Variation 17.5 % (11.5-14.5); RDW Standard Deviation 59.9 fL (36.4-46.3); Red Blood Count 2.69 M/uL (4.2-5.4); White Blood Count 6.13 K/uL (4.8-10.8)
[2021-07-27 05:40] LABS: INR 1.2 (0.9-1.1); Partial Thromboplastin Time 27.6 Seconds (21.0-31.0); Prothrombin Time 12.7 Seconds (9.0-12.0)
[2021-07-27 05:47] LABS: Albumin Globulin Ratio 1.1 (0.9-2); Albumin Level 3.6 gm/dl (3.4-5.0); BUN Creatinine Ratio 41.4 (10-20); Bilirubin,Total 0.6 mg/dl (0.2-1.0); Calcium 8.2 mg/dl (8.5-10.1); Creatinine Clr Calc Pharmacy 16.4 ml/min; Est GFR (African American) 30.3 ml/min; Est GFR (Non-African American) 26.1 ml/min; Globulin 3.3 gm/dl (2.5-4.0); Magnesium 2.5 mg/dl (1.7-2.4); Phosphorus 6.3 mg/dl (2.5-4.9); Potassium 4.8 mmol/L (3.5-5.1); Total Protein 6.9 gm/dl (6.0-8.3)
[2021-07-27] MEDS ORDERED: PIPERACILLIN/TAZOBACTAM 3.375 GM in DEXTROSE 5% 100 ML IV SCH ×2 (06:00→18:00)
--- NOTE | 2021-07-27 06:08 | Electrocardiogram Report ---
Test Reason : Blood Pressure : / mmHG Vent. Rate : 064 BPM Atrial Rate : 034 BPM P-R Int : 000 ms QRS Dur : 160 ms QT Int : 472 ms P-R-T Axes : 000 -16 143 degrees QTc Int : 486 ms Poor data quality, interpretation may be adversely affected Ventricular-paced rhythm Abnormal ECG When compared with ECG of 11-JUN-2021 20:00, Ventricular paced rhythm is now present Confirmed by Bg Toribio ([id number]) on 07/27/2021 6:07:52 AM Referred By: Confirmed By:Bg Toribio
--- NOTE | 2021-07-27 07:17 | CT Scan Report ---
HEAD CT NONCONTRAST CT DOSE: HISTORY: Altered mental status. Fall. TECHNIQUE: Multiaxial CT images of the head were performed without the use of intravenous contrast. A utomated exposure control was utilized for this study. A dose lowering technique was utilized adheri ng to the principles of ALARA. Comparison: Head CT 07/26/2021. Findings: Near complete opacification of the left sphenoid sinus, unchanged. This is likely chronic. The calvarium and skull base are intact. There is no mass, hematoma, midline shift, acute infarct. Wh ite matter hypodensity is nonspecific but suggestive of microvascular ischemic change. The ventricles and sulci demonstrate mild age-related involutional changes. Stable hyperdense left frontal scalp no dule. Impression: No significant change compared to the prior study. No acute intracranial abnormality. ACT 112: Negative or not required by law. Electronically signed by: Godwin Ansari M.D. 07/27/2021 7:15 AM
--- NOTE | 2021-07-27 08:03 | Hospitalist Progress Note ---
Date of Service July 27, 2021 Assessment & Plan Admission and Anticipated Discharge Date Admission Date: July 26, 2021 Subjective LAst night on floor patient bacme lethargic.A dose of 0.2mg Narcan didnot show any effect. lactic acid was ok. Blood pressure soft. ABG Showed PH 7.25 pco 24 hco3 10. D/W nephrology increased bicarb drip to 100ml/hr. Was on ginny hugger as She was hypothermic. TSh was ok. Later spiked temp and became mostly obtunded.CT head and ct chest(unremarkable) and repeat labs ordered and abx zosyn and iv vanco. notified critical care. Seems improved after 0.4mg narcan in ER. Followup labs Results & Data Results & Data ([facility]) Vital Signs (Past 12 Hours) Vital Signs Temp Pulse Pulse Resp BP BP BP 07/27/21 06:20 37.2 C 77 12 07/27/21 06:15 37.2 C 63 14 101/56 L 07/27/21 06:10 37.2 C 64 13 07/27/21 06:00 37.2 C 64 13 07/27/21 05:50 37.2 C 67 12 07/27/21 05:45 37.3 C 67 12 93/73 L 07/27/21 05:40 37.3 C 74 13 07/27/21 05:30 37.3 C 67 14 109/62 07/27/21 05:20 37.3 C 70 16 07/27/21 05:10 37.3 C 71 15 07/27/21 05:00 37.4 C 78 14 117/60 07/27/21 04:50 37.4 C 74 15 07/27/21 04:46 37.4 C 67 15 124/57 L 07/27/21 04:40 37.4 C 69 13 07/27/21 04:30 37.4 C 72 14 116/58 L 07/27/21 04:20 37.4 C 64 15 07/27/21 04:16 37.4 C 70 16 108/67 07/27/21 04:15 37.4 C 63 15 07/27/21 04:00 37.5 C 66 17 125/61 07/27/21 03:45 37.5 C 68 17 117/62 07/27/21 03:36 37.6 C H 64 19 112/64 07/27/21 03:30 37.7 C H 64 20 07/27/21 03:15 37.7 C H 75 18 07/27/21 03:00 37.8 C H 60 13 112/62 07/27/21 02:52 66 85/53 L 07/27/21 02:45 37.9 C H 60 17 07/27/21 02:40 65 15 85/53 L 07/27/21 02:39 72 16 07/27/21 01:39 38.2 C H 65 12 88/46 L 07/26/21 23:22 60 07/26/21 22:54 38.2 C H 60 22 94/52 L 07/26/21 22:18 62 Pulse Ox 07/27/21 06:20 95 07/27/21 06:15 97 07/27/21 06:10 96 07/27/21 06:00 96 07/27/21 05:50 96 07/27/21 05:45 95 07/27/21 05:40 96 07/27/21 05:30 96 07/27/21 05:20 95 07/27/21 05:10 95 07/27/21 05:00 95 07/27/21 04:50 96 07/27/21 04:46 94 07/27/21 04:40 95 07/27/21 04:30 95 07/27/21 04:20 96 07/27/21 04:16 94 07/27/21 04:15 94 07/27/21 04:00 96 07/27/21 03:45 93 07/27/21 03:36 96 07/27/21 03:30 96 07/27/21 03:15 94 07/27/21 03:00 94 07/27/21 02:52 07/27/21 02:45 93 07/27/21 02:40 92 07/27/21 02:39 07/27/21 01:39 92 07/26/21 23:22 07/26/21 22:54 95 07/26/21 22:18
[2021-07-27] MEDS: INSULIN ASPART PER UNIT SC SCH ×4 (08:04→20:34)
--- NOTE | 2021-07-27 08:06 | Critical Care Progress Note ---
Date of Service July 27, 2021 Assessment & Plan (1) High anion gap metabolic acidosis: (2) CASH (acute kidney injury): (3) Encephalopathy: (4) Atrial fibrillation: (5) Type II diabetes mellitus, uncontrolled: (6) Elevated troponin: (7) Sternal fracture: (8) CHI (closed head injury): Plan: Reason Critically Ill: 81-year-old female presents to the ICU with recent fall and sternal fracture and multiple rib fractures, now presents to the ICU with acute renal failure and acute encephalopathy Neuro - Acute encephalopathy: -Multifactorial as patient is currently in acute renal failure with elevated BUN. Patient is also received narcotics for pain control -Patient did also have a fall approximately 1 week ago and has a large hematoma on the face.CT head continues to be without acute intracranial findings. -Patient does have history of subarachnoid hemorrhage -Ammonia, LFTs within normal limits Cardiac - Hypotensionresolved following Narcan bolus. Patient does have diastolic heart failure with ejection fraction of 50% and mod erate pulmonary hypertension. Elevated troponin -Likely secondary to type II MT in a patient with CASH -EKG does not show any significant change compared to before -We will continue to trend troponins for now. Continue monitoring on telemetry. Atrial fibrillationpatient currently in paced rhythm. -Hold digoxin, follow-up digoxin level Respiratory - Currently maintaining oxygen saturation on room air. CT chest did show bibasilar atelectasis, which suspect is likely due to rib/sternal fractures. Could consider BiPAP if this worsens GI - N.p.o. for now RENAL/LYTES - Acute renal failureCreatinine of 2.0, with baseline 0.7. Suspect this may be ATN due to prior hypotension -High anion gap metabolic acidosis, likely secondary to elevated BUN, urine ketones have been negative, lactate negative -Continue to monitor BUNs/creatinine, avoid nephrotoxic medication -CT abdomen shows nonobstructing renal calculi. - Gonzalez insertedcontinue to monitor strict I's and the ENDO - DM type II, uncontrolledlast hemoglobin A1c 11.6. -Currently euglycemic, continue sliding scale. -ICU hyperglycemic protocol Hypothyroidcontinue Synthroid TSH 7.3 with normal free T4 0.66 HEME - H&H stable, monitor routine CBCs Ortho Patient with acute mildly displaced and angulated fracture at the mid sternal body with trace retrosternal hemorrhage and anterior L fourth and fifth rib fractures. Case was [place] [facility] and no acute intervention was required. Continue with conservative management. ID - No clear indications for infectious process at this time. No leukocytosis, lact ic acidosis, and procalcitonin within normal limits. atyuliana did have low-grade fever although she was on a Kendra hugger at the time and previously been hypothermic. She did have positive nasal MRSA. Procalcitonin negative --> DC antibiotics --Prophylaxis VTE: IPC GI: None Lines: Peripheral Diet: N.p.o. Plan: Give another 2 mg of Narcan followed by 4 mg of Narcan if the patient still does not wake up No acute indication for intubation right now. She is able to maintain her s aturation Her bicarb is only 13. With anion gap of 14. Likely coming from elevated BUN. Continue with IV bicarb replacement. Will change to D5 half NS as the patient is not taking anything by mouth. Hold gabapentin as well as digoxin. Follow-up digoxin level. No clear source of infection. Will DC antibiotics. I have personally spent 43 minutes of critical care time in the direct management of this patient. This is a life/limb threatening event. This includes time spent evaluating patient, direct bedside care, chart review, placing orders, interpretation of diagnostic studies, discussion with consultants, patient, and family members, as well as other required patient management activities. This time is exclusive of all separately billable procedures, and teaching time and separate from and in addition to any other critical care service time. Thank you for allowing us to participate in the care of this patient. Please refer to my attending physician's documentation for any further recommendations. Admission and Anticipated Discharge Date Admission Date: July 26, 2021 Subjective Patient seen and examined at bedside. No acute distress Patient was still very somnolent. She has gotten so far 0.6 mg of naloxone. She did wake up after getting naloxone. Unable to get too much history from the patient. Review of Systems Review of Systems: All systems reviewed & are unremarkable except as noted in Subjective Physical Exam Physical Exam: Constitutional: No acute distress HEENT: EOMI, PERRLA,bruising appreciated on the left side of the face Respiratory system: Decreased bilaterally, no wheeze, rhonchi, positive crackles bilaterally CVS: S1-S2 positive, accentuated P2 Abdomen: Soft, nontender, nondistended, positive bowel sounds x4 Extremities: +2 pulses bilaterally radialis/ dorsalis pedis, no cyanosis, +1 pitting edema bilateral lower extremity Neuro: Oriented only to self. Somnolent. Psych: Unable to assess G/U: Positive Gonzalez Skin: no rashes, warm and dry Lymphatic: no cervical or axillary lymphadenopathy Results & Data Results & Data ([facility]) Vital Signs (Past 12 Hours) Vital Signs Temp Pulse Pulse Resp BP BP BP 07/27/21 06:20 37.2 C 77 12 07/27/21 06:15 37.2 C 63 14 101/56 L 07/27/21 06:10 37.2 C 64 13 07/27/21 06:00 37.2 C 64 13 07/27/21 05:50 37.2 C 67 12 07/27/21 05:45 37.3 C 67 12 93/73 L 07/27/21 05:40 37.3 C 74 13 07/27/21 05:30 37.3 C 67 14 109/62 07/27/21 05:20 37.3 C 70 16 07/27/21 05:10 37.3 C 71 15 07/27/21 05:00 37.4 C 78 14 117/60 07/27/21 04:50 37.4 C 74 15 07/27/21 04:46 37.4 C 67 15 124/57 L 07/27/21 04:40 37.4 C 69 13 07/27/21 04:30 37.4 C 72 14 116/58 L 07/27/21 04:20 37.4 C 64 15 07/27/21 04:16 37.4 C 70 16 108/67 07/27/21 04:15 37.4 C 63 15 07/27/21 04:00 37.5 C 66 17 125/61 07/27/21 03:45 37.5 C 68 17 117/62 07/27/21 03:36 37.6 C H 64 19 112/64 07/27/21 03:30 37.7 C H 64 20 07/27/21 03:15 37.7 C H 75 18 07/27/21 03:00 37.8 C H 60 13 112/62 07/27/21 02:52 66 85/53 L 07/27/21 02:45 37.9 C H 60 17 07/27/21 02:40 65 15 85/53 L 07/27/21 02:39 72 16 07/27/21 01:39 38.2 C H 65 12 88/46 L 07/26/21 23:22 60 07/26/21 22:54 38.2 C H 60 22 94/52 L 07/26/21 22:18 62 Pulse Ox 07/27/21 06:20 95 07/27/21 06:15 97 07/27/21 06:10 96 07/27/21 06:00 96 07/27/21 05:50 96 07/27/21 05:45 95 07/27/21 05:40 96 07/27/21 05:30 96 07/27/21 05:20 95 07/27/21 05:10 95 07/27/21 05:00 95 07/27/21 04:50 96 07/27/21 04:46 94 07/27/21 04:40 95 07/27/21 04:30 95 07/27/21 04:20 96 07/27/21 04:16 94 07/27/21 04:15 94 07/27/21 04:00 96 07/27/21 03:45 93 07/27/21 03:36 96 07/27/21 03:30 96 07/27/21 03:15 94 07/27/21 03:00 94 07/27/21 02:52 07/27/21 02:45 93 07/27/21 02:40 92 07/27/21 02:39 07/27/21 01:39 92 07/26/21 23:22 07/26/21 22:54 95 07/26/21 22:18 Laboratory Results 07/27/21 04:55 07/27/21 04:55 Coding Level of Care Code Critical Care ea addt'l 30 min Diagnoses High anion gap metabolic acidosis E87.2 CASH (acute kidney injury) N17.9 Encephalopathy G93.40 Atrial fibrillation I48.91 Type II diabetes mellitus, uncontrolled E11.65 Elevated troponin R77.8 Sternal fracture S22.20XA CHI (closed head injury) S09.90XA Encounter type: initial encounter Time Spent (min) 43 (1) CHI (closed head injury) Encounter type: initial encounter Qualified Code(s): S09.90XA - Unspecified injury of head, initial encounter
[2021-07-27 09:14] LABS: Appearance Urine Cloudy (Clear); Bacteria Urine Automated Negative (Negative); Bilirubin Urine Negative (Negative); Blood Urine 3+ (Negative); Color Urine Yellow; Glucose Urine UA Negative (Negative); Ketones Urine Negative (Negative); Leukocyte Esterase Urine 3+ (Negative); Nitrite Urine Negative (Negative); Protein Urine 1+ (Negative); Specific Gravity Urine 1.028 (1.000-1.030); Urobilinogen Urine Negative (Negative); WBC Urine Automated >30 /hpf (0-5)
[2021-07-27 09:25] LABS: Cast Urine Automated 0 /lpf (0-5)
--- NOTE | 2021-07-27 09:28 | CT Scan Report ---
CT chest diagnostic wo con, CT abd pelvis wo con CT DOSE: 1592.15 mGy.cm CLINICAL HISTORY: 81 years-old Female with fall.. Acute chest and abdominal trauma status post fall TECHNIQUE: Multiaxial CT images of the chest, abdomen and pelvis were performed without contrast. A dose lowering technique was utilized adhering to the principles of ALARA. COMPARISON: CT chest 07/26/2021, CT abdomen and pelvis 07/20/2021 FINDINGS: CT CHEST: Calcifications of the thyroid. No pathologically enlarged lymph nodes are identified. There is marked cardiomegaly with small pericardial effusion. Left subclavian pacer. Extensive coronary artery calci fications. Advanced atherosclerosis of the thoracic aorta descending tortuosity. Dilated pulmonary ar timothy suggestive of pulmonary artery hypertension. Trace pleural effusions. Intralobular septal thicke sharita with intermixed groundglass densities. Mild dependent subsegmental bibasilar atelectasis. No pne umothorax. Decreased AP dimension of the trachea and bronchi may represent tracheobronchomalacia. Mil d bibasilar mucous plugging. No acute of the imaged upper abdomen. Secretions are noted within the mi d esophagus. Generalized body wall edema. Degenerative changes of the shoulders and spine. There is an acute mildl y displaced fracture involving the mid sternal body with decreased angulation compared to yesterday's study. Trace retrosternal hemorrhage within the anterior mediastinum. Subtle angulation of the anter ior left fourth through sixth ribs suggests age-indeterminate fractures. No acute displaced rib fract ure identified. CT ABDOMEN/PELVIS: No pneumatosis or pneumoperitoneum. The unenhanced spleen, dystrophic pancreas, adrenal glands and vi sualized liver appear unremarkable. The gallbladder is not visualized and is either contracted or lilliam gically absent. Calculi of the inferior pole left kidney measure up to 6 mm. Punctate nonobstructing calculus of the superior pole left kidney. 9 mm hypodensity of the inferior pole left kidney, possibly a cyst. No hyd ronephrosis. Mild urinary bladder distention. Extensive atherosclerosis of the abdominal aorta and br anch vessels. Infrarenal IVC filter. Moderate to large hiatal hernia. Extensive colonic diverticulosi s. Mild rectal wall thickening with perirectal stranding. Diffuse body wall edema with trace abdomina l pelvic ascites. Degenerative changes of the shoulders and spine. Chronic fracture deformity of the posterolateral left eighth rib is unchanged. Prior laminectomy changes of the lumbar spine. ORIF jackman ges of the left proximal femur. IMPRESSION: 1. Acute mildly displaced fracture of the mid sternal body with trace retrosternal hemorrhage. There is decreased cortical angulation compared to yesterday's study. 2. Subtle angulation of the lateral left fourth through sixth ribs is suggestive of acute fractures. Correlate with point tenderness. No pneumothorax. 3. Marked cardiomegaly with trace pleural effusions, anasarca with trace abdominal pelvic ascites. 4. Nonobstructing bilateral nephrolithiasis. 5. Extensive colonic diverticulosis. 6. Additional findings as above. ACT 112: Negative or not required by law. Electronically signed by: Sarthak Quigley M.D. 07/27/2021 9:26 AM
[2021-07-27] MEDS ORDERED: NALOXONE HCL 0.4 MG/1 ML VIAL/CARP IV ONE (09:45)
[2021-07-27 09:50] LABS: Chloride Random Urine < 15 mmol/L; Creatinine Urine Random 61.1 mg/dl; Potassium Random Urine 50.7 mmol/L; Sodium Random Urine 23 mmol/L
--- NOTE | 2021-07-27 09:56 | Hospitalist Progress Note ---
Date of Service July 27, 2021 Assessment & Plan (1) Sternal fracture: (2) Multiple rib fractures: (3) CASH (acute kidney injury): (4) High anion gap metabolic acidosis: (5) Chest pain: (6) Elevated troponin: (7) CHI (closed head injury): (8) Diabetic leg ulcer: (9) Type II diabetes mellitus, uncontrolled: (10) Chronic anemia: Plan: per admitting service notes with addendum: This is a 81-year-old female who has significant past history of insulin-depende nt T2DM uncontrolled, PAF not anticoagulated on warfarin, history of sinus node dysfunction status post pacemaker placement in 2009, chronic HFpEF, peripheral neuropathy, hypothyroidism, HTN, HLD who presents to ED after experiencing chest pain and shortness of breath x1 week. Of significance patient sustained a fall approximately 1 week ago. Acute mildly displaced and angulated fracture of the mid sternal body with trace retrosternal hemorrhage. Anterior L 4th and 5th rib fracture Anterior chest wall pain elevated troponin Mechanical Fall 1 week ago admit to PCU ED provider discussed cased with [place] [facility], who stated no acute intervention required, conservative management at this time, if further sx evolve can reach out to trauma service at [facility], no transfer necessary pain management with ICE, lidocaine patch, scheduled APAP, prn IV morphine or PO oxy IR obtain echocardiogram cycle troponins ekg in a.m. PT/OT hold on cards consult for now incentive spirometry 07/27 pain level difficult to assess due to altered mental status narcotics on hold Echo: no mention of contusion monitor closely Metabolic vs toxic encephalopathy likely Multifactorial from: Narcotics Acute Renal Failure Possible Lower Extremity Cellulitis, Infected wound, Left (Hx of Left leg wound 07/04, Enterococus + MSSA) - additional Narcan ordered today - hold Narcotics management of ARF per below - Wound Culture ordered Blood culture: pending UA: pending - continue IV Zosyn CASH Anion gap metabolic acidosis baseline cr 0.6-0.7 pt with poor po intake hold losartan, lasix and aldactone 07/27 crea 1.8 HCO3 13 continue HCO3 drip Nephro consulted Closed head injury L facial ecchymosis and L frontal scalp hematoma pt c/o headache, dizziness repeat CT head: No significant change compared to the prior study. No acute intracranial abnormality. monitor closely B/L Lower ext venous stasis Possible lower extremity cellulitis Diabetic ulcer to L leg consult wound care IV Zosyn Wound and blood cultures pending Chronic HFpEF HTN obtain echo on losartan, metoprolol, lasix and aldactone as outpt hold losartan, lasix and aldactone daily weights, strict I and O pt with lower extremity edema, increased per pt increased edema may be in setting of cellulitis Uncontrolled insulin dependent T2DM Lantus/novolog per protocol a1c 10.7 07/05/21 consult glycemic pharmacy due to reduced intake Afib hx of TBS s/p PPM 2009 interrogate pacer continue metoprolol and digoxin not on OAC 2/2 to hx of SAH Chronic anemia baseline hgb 9-10 hgb 9.3 --> 8.3 monitor closely DVT ppx: SCD/TEDS for now, no chemical prophylaxis in setting of recent trauma, trace retrosternal hemorrhage and hx of SAH Dispo: PCU, pt likely to need acute inpt rehab FULL CODE PCP: Gege Fontenot Admission and Anticipated Discharge Date Admission Date: July 26, 2021 Subjective ff up for sternal fracture, acute RF, etc events overnight noted seen resting in bed, very drowsy able to follow simple commands and answer in short phrases but drifts back to sleep denies pain, shortness of breath no other issues noted Review of Systems Review of Systems: Unobtainable due to cognitive status Physical Exam Physical Exam: General- very drowsy, not in distress, speaks in short phrases with no effort or accessory muscle use Face- (+) ecchymoses L lower half of the face Eyes- PERRL, anicteric ENT- no bleeding noted Neck- supple, no JVD, no adenopathy, no thyromegaly; carotids +2/2, no bruits appreciated Lungs- clear to auscultation bilaterally, no rales/wheezes Heart- normal rate, regular rhythm; no murmur, no gallop, no rub appreciated Abdomen- normal bowel sounds, nondistended, soft, nontender, no masses or hepatosplenomegaly Extremities- no pretibial edema, no calf tenderness; peripheral pulses intact Neuro- very drowsy moves extremities equally Skin- warm & dry Results & Data Results & Data ([facility]) Vital Signs (Past 12 Hours) Vital Signs Temp Pulse Pulse Resp BP BP BP 07/27/21 06:20 37.2 C 77 12 07/27/21 06:15 37.2 C 63 14 101/56 L 07/27/21 06:10 37.2 C 64 13 07/27/21 06:00 37.2 C 64 13 07/27/21 05:50 37.2 C 67 12 07/27/21 05:45 37.3 C 67 12 93/73 L 07/27/21 05:40 37.3 C 74 13 07/27/21 05:30 37.3 C 67 14 109/62 07/27/21 05:20 37.3 C 70 16 07/27/21 05:10 37.3 C 71 15 07/27/21 05:00 37.4 C 78 14 117/60 07/27/21 04:50 37.4 C 74 15 07/27/21 04:46 37.4 C 67 15 124/57 L 07/27/21 04:40 37.4 C 69 13 07/27/21 04:30 37.4 C 72 14 116/58 L 07/27/21 04:20 37.4 C 64 15 07/27/21 04:16 37.4 C 70 16 108/67 07/27/21 04:15 37.4 C 63 15 07/27/21 04:00 37.5 C 66 17 125/61 07/27/21 03:45 37.5 C 68 17 117/62 07/27/21 03:36 37.6 C H 64 19 112/64 07/27/21 03:30 37.7 C H 64 20 07/27/21 03:15 37.7 C H 75 18 07/27/21 03:00 37.8 C H 60 13 112/62 07/27/21 02:52 66 85/53 L 07/27/21 02:45 37.9 C H 60 17 07/27/21 02:40 65 15 85/53 L 07/27/21 02:39 72 16 07/27/21 01:39 38.2 C H 65 12 88/46 L 07/26/21 23:22 60 07/26/21 22:54 38.2 C H 60 22 94/52 L 07/26/21 22:18 62 Pulse Ox 07/27/21 06:20 95 07/27/21 06:15 97 07/27/21 06:10 96 07/27/21 06:00 96 07/27/21 05:50 96 07/27/21 05:45 95 07/27/21 05:40 96 07/27/21 05:30 96 07/27/21 05:20 95 07/27/21 05:10 95 07/27/21 05:00 95 07/27/21 04:50 96 07/27/21 04:46 94 07/27/21 04:40 95 07/27/21 04:30 95 07/27/21 04:20 96 07/27/21 04:16 94 07/27/21 04:15 94 07/27/21 04:00 96 07/27/21 03:45 93 07/27/21 03:36 96 07/27/21 03:30 96 07/27/21 03:15 94 07/27/21 03:00 94 07/27/21 02:52 07/27/21 02:45 93 07/27/21 02:40 92 07/27/21 02:39 07/27/21 01:39 92 07/26/21 23:22 07/26/21 22:54 95 07/26/21 22:18 all noted and reviewed including below (1) CHI (closed head injury) Encounter type: initial encounter Qualified Code(s): S09.90XA - Unspecified injury of head, initial encounter
[2021-07-27] MEDS: D5W IV SCH ×2 (10:19→18:33)
[2021-07-27] MEDS: SODIUM BICARBONATE IV SCH ×3 (10:19→19:56)
[2021-07-27] MEDS: [UNRECOGNIZED DRUG - OTHER] IV SCH ×2 (10:19→18:33)
[2021-07-27] MEDS: LIDOCAINE 5% 1 PATCH TD SCH (10:20)
--- NOTE | 2021-07-27 10:29 | Nephrology Consultation ---
Date of Consultation July 27, 2021 Assessment & Plan (1) CASH (acute kidney injury): Cause unclear: concerning for ATN in the setting of sepsis. Suspect also this may relate to medications since she is only recently returned home after extended stay at assisted living while not admitted here or at acute rehab and has been resisting/refusing some f/u. baseline creatinine 0.6-0.7 as OP; stage -agree w/ holding gabapentin, MRA, ARB, loop -f/u pending urine/ blood cxs -added CK > wnl -will likely change to isotonic bicarb gtt lower rate pending repeat bmp ordered 1500 >>given her R HF / HF hx will have low threshold to lower IVF rate (2) High anion gap metabolic acidosis: hypoxemia noted on abg; AG metabolic acidosis w/ low bicarb s/p mulitple infusions since these labs were drawn (3) Encephalopathy: with recent admission for same about one month back attrib to LLE cellulitis; cause unclear at this time but infection concerning; medication induced also high on differential, sabrina on high dose gabapentin w/ worse renal function (4) Fall: She has extensive injuries for one reported fall > -recommend discussion w/ family to get better hx -defer to primary service to screen for abuse (5) Congestive heart failure: has had variable heart function over past year > transiently depressed EF 02/2021; now w/ R HF on TTE yesterday -caution w/ fluids -f/u pending digoxin level --spironolactone, ARB, lasix on hold History of Present Illness Reason for Consultation: CASH Requesting Physician: Dr Garg Attending Physician: Chris Lawson MD History of Present Illness 81-year-old female whom I'm asked to see for CASH was admitted yesterday for elevated troponin, CASH, acute fractures of sternum/ribs after a fall about a week prior to presentation. She presented w/ dyspnea, chest pain, cough, and poor po intake. PMH w/ DM2on insulin (A1c 10.19 June 2021), combined systolic and diastolic heart failure, paroxysmal a fib not on AC and tachy/jodi s/p pacer, hypothyroid, HTN, gout, HL, stones, chronic ambulatory dysfunction (walker dependent). She was admitted here 06/11-06/16 w/ metabolic encephalopathy attributed to LLE cellulitis. d/c from here to [facility]. Prior to and after this admission had been at [facility] as a resident and was just d/c home 07/18. 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 Her baseline creatinine is 0.6-0.7 as recently as June 2021 and one week prior to presentation (at initial ER visit after fall); presented w/ creatinine 1.8 yesterday, unchanged today. Also with anion gap metabolic acidosis including bicarb of 10, and presenting elevated troponin 30 up to [address] w/ acute fractures - mid sternum (mildly displaced w/ trace retrosternal hemorrhage), L ribs 4-6. Pt was discussed w/ [facility] [place] which recommended conservative management and pain control. The pt was admitted initially to PCU with a bicarb gtt but last evening became unresponsive, prompting ICU transfer. CT above and CT head as well unremarkable. She did come round some w/ narcan. She had an additional amp of bicarb and gtt continued as well, though changed to D5 1/2 NS w/ 150 mEq sodium bicarb at 125 ml/hr. She did have a transient fever last evening (38.2 rectal) and blood and urine cxs were drawn. Ongoing diminished MS but pt arouseable, follows cds, remains on RA. She will interact for ROS to a limited extent > denies voiding concerns including dysuria or gross hematuria, no n/v, no sob currently, no worsening chest or other musculskeletal pain. Allergies Allergy/AdvReac Type Severity Reaction Status Date / Time citalopram Allergy Unknown Unknown Verified 07/26/21 07:19 paroxetine Allergy Unknown Unknown Verified 07/26/21 07:19 Sulfa (Sulfonamide Allergy Unknown TOLERATES Verified 07/26/21 07:19 Antibiotics) LASIX venom-wasp protein Allergy Unknown HIVES Verified 07/26/21 07:19 celecoxib AdvReac Mild N/V Verified 07/26/21 07:19 Home Medications Medication Instructions Recorded Confirmed Type atorvastatin 40 mg tablet 40 mg PO HS 12/13/20 07/26/21 History levothyroxine 75 mcg tablet 75 mcg PO HS 12/13/20 07/26/21 History losartan 50 mg tablet 50 mg PO HS 12/13/20 07/26/21 History magnesium oxide 400 mg PO HS 12/13/20 07/26/21 History rizatriptan 5 mg tablet 5 mg PO DIRECTED PRN 12/13/20 07/26/21 History spironolactone 25 mg tablet 12.5 mg PO HS 12/13/20 07/26/21 History allopurinol 300 mg tablet 300 mg PO HS 03/05/21 07/26/21 History cholecalciferol (vitamin D3) 25 25 mcg PO HS 03/05/21 07/26/21 History mcg (1,000 unit) tablet digoxin 125 mcg (0.125 mg) tablet 125 mcg PO DAILY@199903/05/21 07/26/21 History epinephrine 0.3 mg/0.3 mL 0.3 mg IM Q4H PRN 03/05/21 07/26/21 History injection, auto-injector gabapentin 300 mg capsule 300 mg PO HS 03/05/21 07/26/21 History hydrocodone 5 mg-acetaminophen 325 1 tab PO Q6 PRN 03/05/21 07/26/21 History mg tablet metoprolol succinate 200 mg 200 mg PO BID 06/11/21 07/26/21 History tablet,extended release 24 hr vitamins A,C,X-qagx-giefob 14,320 1 cap PO HS 06/11/21 07/26/21 History unit-226 mg-200 unit capsule (PreserVision AREDS) insulin lispro 100 unit/mL 1 unit SUBCUT UD #0 ml 06/16/21 07/26/21 Rx subcutaneous pen (Humalog KwikPen (U-100) Insulin) insulin glargine 100 unit/mL (3 13 unit SUBCUT QAM ml 06/30/21 07/26/21 History mL) subcutaneous pen (Lantus Solostar U-100 Insulin) furosemide 40 mg tablet 20 mg PO DAILY 07/20/21 07/26/21 History Patient History Medical History (Updated 07/27/21 @ 15:43 by Celsa Steen MD, PhD) Afib Cerebral hemorrhage "2010 left hemiparesis" Chronic anemia Chronic combined systolic and diastolic CHF (congestive heart failure) Diabetes mellitus, type II Frequent falls hx of subarachnoid hemorrhage 2009, large retroperitoneal bleed 2015 walker dependent Gout Hematoma of rectus sheath 2015 Hemiplegia History of - cerebrovascular accident HLD (hyperlipidemia) HTN (hypertension) Hypothyroidism Pacemaker Presence of IVC filter Tachy-jodi syndrome Surgical History Status post appendectomy Status post cardiac pacemaker procedure Status post cataract extraction Status post cholecystectomy Status post hysterectomy Status post insertion of inferior vena caval filter Family History Daughter Breast cancer Mother Cancer pancreatic Father Heart disease Social History Smoking Status: Never smoker Second Hand Exposure: No; Hx Alcohol Use: No Hx Substance Use: No Preferred Language: Irish Communication Ability: Effective Vending Route Driver Required: No Beliefs That Will Affect Care: None marital status: Current Living Situation: Spouse Current Living Situation Comment: patient lives at home with , who is her primary caregiver Other Information That Helps Us Care for You: No Feels Safe at Home: Yes Safety Concerns: Feels Safe At This Time Assistive Devices: Glasses Review of Systems Review of Systems: All systems reviewed & are unremarkable except as noted in HPI & below Physical Exam Constitutional: well developed, + thin, + frail appearing and + lethargic; no acute distress Eyes: EOM intact bilaterally ENMT: Ears: no external ear abnormality Nose: no external nose abnormality Mouth: + dry oral mucous membranes Neck: no nuchal rigidity Respiratory: normal respiratory effort and + cough Auscultation: + diminished lung sounds and + crackles Cardiovascular: Rate/Rhythm: regular rate and regular rhythm Extremities: + edema (trace) Gastrointestinal (Abdomen): Inspection/Auscultation: normal bowel sounds Percussion/Palpation: abdomen soft; abdomen nontender Musculoskeletal: Extremities: strength 5/5 throughout Skin: no rashes, warm and dry Trauma: + evidence of skin trauma (LLE pretibial), + contusion (L side of face; chest) and + periorbital ecchymosis Neurologic: kim, no tremor, lethargic, limited speech Psychiatric: Orientation: oriented to person and oriented to place Genitourinary: vargas w/ ample dark yellow urine Results & Data ([facility]) Vital Signs (Past 12 Hours) Vital Signs Temp Pulse Pulse Resp BP BP BP 07/27/21 06:20 37.2 C 77 12 07/27/21 06:15 37.2 C 63 14 101/56 L 07/27/21 06:10 37.2 C 64 13 07/27/21 06:00 37.2 C 64 13 07/27/21 05:50 37.2 C 67 12 07/27/21 05:45 37.3 C 67 12 93/73 L 07/27/21 05:40 37.3 C 74 13 07/27/21 05:30 37.3 C 67 14 109/62 07/27/21 05:20 37.3 C 70 16 07/27/21 05:10 37.3 C 71 15 07/27/21 05:00 37.4 C 78 14 117/60 07/27/21 04:50 37.4 C 74 15 07/27/21 04:46 37.4 C 67 15 124/57 L 07/27/21 04:40 37.4 C 69 13 07/27/21 04:30 37.4 C 72 14 116/58 L 07/27/21 04:20 37.4 C 64 15 07/27/21 04:16 37.4 C 70 16 108/67 07/27/21 04:15 37.4 C 63 15 07/27/21 04:00 37.5 C 66 17 125/61 07/27/21 03:45 37.5 C 68 17 117/62 07/27/21 03:36 37.6 C H 64 19 112/64 07/27/21 03:30 37.7 C H 64 20 07/27/21 03:15 37.7 C H 75 18 07/27/21 03:00 37.8 C H 60 13 112/62 07/27/21 02:52 66 85/53 L 07/27/21 02:45 37.9 C H 60 17 07/27/21 02:40 65 15 85/53 L 07/27/21 02:39 72 16 07/27/21 01:39 38.2 C H 65 12 88/46 L 07/26/21 23:22 60 07/26/21 22:54 38.2 C H 60 22 94/52 L Pulse Ox 07/27/21 06:20 95 07/27/21 06:15 97 07/27/21 06:10 96 07/27/21 06:00 96 07/27/21 05:50 96 07/27/21 05:45 95 07/27/21 05:40 96 07/27/21 05:30 96 07/27/21 05:20 95 07/27/21 05:10 95 07/27/21 05:00 95 07/27/21 04:50 96 07/27/21 04:46 94 07/27/21 04:40 95 07/27/21 04:30 95 07/27/21 04:20 96 07/27/21 04:16 94 07/27/21 04:15 94 07/27/21 04:00 96 07/27/21 03:45 93 07/27/21 03:36 96 07/27/21 03:30 96 07/27/21 03:15 94 07/27/21 03:00 94 07/27/21 02:52 07/27/21 02:45 93 07/27/21 02:40 92 07/27/21 02:39 07/27/21 01:39 92 07/26/21 23:22 07/26/21 22:54 95 Laboratory Results 07/27/21 04:55 ABG 0300, trop trends, UACM/lytes, 0600 BMP reviewed Diagnostic Findings CT c/a/p non con CT CHEST: Calcifications of the thyroid. No pathologically enlarged lymph nodes are identified. There is marked cardiomegaly with small pericardial effusion. Left subclavian pacer. Extensive coronary artery calcifications. Advanced atherosclerosis of the thoracic aorta descending tortuosity. Dilated pulmonary artery suggestive of pulmonary artery hypertension. Trace pleural effusions. Intralobular septal thickening with intermixed groundglass densities. Mild dependent subsegmental bibasilar atelectasis. No pneumothorax. Decreased AP dimension of the trachea and bronchi may represent tracheobronchomalacia. Mild bibasilar mucous plugging. No acute of the imaged upper abdomen. Secretions are noted within the mid esophagus. Generalized body wall edema. Degenerative changes of the shoulders and spine. There is an acute mildly displaced fracture involving the mid sternal body with decreased angulation compared to yesterday's study. Trace retrosternal hemorrhage within the anterior mediastinum. Subtle angulation of the anterior left fourth through sixth ribs suggests age-indeterminate fractures. No acute displaced rib fracture identified. CT ABDOMEN/PELVIS: No pneumatosis or pneumoperitoneum. The unenhanced spleen, dystrophic pancreas, adrenal glands and visualized liver appear unremarkable. The gallbladder is not visualized and is either contracted or surgically absent. Calculi of the inferior pole left kidney measure up to 6 mm. Punctate nonobstructing calculus of the superior pole left kidney. 9 mm hypodensity of the inferior pole left kidney, possibly a cyst. No hydronephrosis. Mild urinary bladder distention. Extensive atherosclerosis of the abdominal aorta and branch vessels. Infrarenal IVC filter. Moderate to large hiatal hernia. Extensive colonic diverticulosis. Mild rectal wall thickening with perirectal stranding. Diffuse body wall edema with trace abdominal pelvic ascites. Degenerative changes of the shoulders and spine. Chronic fracture deformity of the posterolateral left eighth rib is unchanged. Prior laminectomy changes of the lumbar spine. ORIF changes of the left proximal femur. IMPRESSION: 1. Acute mildly displaced fracture of the mid sternal body with trace retrosternal hemorrhage. There is decreased cortical angulation compared to yesterday's study. 2. Subtle angulation of the lateral left fourth through sixth ribs is suggestive of acute fractures. Correlate with point tenderness. No pneumothorax. 3. Marked cardiomegaly with trace pleural effusions, anasarca with trace abdominal pelvic ascites. 4. Nonobstructing bilateral nephrolithiasis. 5. Extensive colonic diverticulosis. 6. Additional findings as above. TTE 07/26 EF 55-60%, mod CLVH, RV OL signs; severe LA enlargement and mod MR/TR (1) Fall Encounter type: initial encounter Qualified Code(s): W19.XXXA - Unspecified fall, initial encounter
[2021-07-27 16:32] LABS: BUN Creatinine Ratio 41.4 (10-20); Calcium 7.9 mg/dl (8.5-10.1); Creatinine Clr Calc Pharmacy 21.3 ml/min; Est GFR (African American) 32.9 ml/min; Est GFR (Non-African American) 28.4 ml/min; Potassium 4.2 mmol/L (3.5-5.1)
[2021-07-27] MEDS: DEXTROSE 5% IV SCH (19:56)
[2021-07-27] MEDS: POTASSIUM ACETATE IV SCH (19:56)
[2021-07-27] MEDS ORDERED: NYSTATIN POWDER 15GM BTL EXT PRN (20:23)
[2021-07-27] MEDS: ATORVASTATIN 40 MG TAB PO SCH (20:33)
[2021-07-27] MEDS: CHOLECALCIFEROL 1,000 UNITS 25 MCG TAB PO SCH (20:33)
[2021-07-27] MEDS: LEVOTHYROXINE SODIUM 75 MCG TABLET PO SCH (20:34)
[2021-07-27] MEDS: MULTIVITAMIN TAB PO SCH (20:34)
[2021-07-27] MEDS: ACETAMINOPHEN 1,000 MG/100 ML VIAL IV PRN (21:01)
[2021-07-28] MEDS: INSULIN ASPART PER UNIT SC SCH ×6 (00:06→20:52)
[2021-07-28] MEDS: POTASSIUM ACETATE IV SCH (04:37)
[2021-07-28] MEDS: DEXTROSE 5% IV SCH (04:37)
[2021-07-28] MEDS: SODIUM BICARBONATE IV SCH (04:37)
[2021-07-28 05:36] LABS: Basophils # (auto) 0.01 K/uL (0-0.2); Basophils % (auto) 0.2 %; Eosinophils # (auto) 0.17 K/uL (0-0.5); Eosinophils % (auto) 4.2 %; Hematocrit (blood only) 24.4 % (37-47); Hemoglobin 7.9 g/dL (12.0-16.0); Immature Granulocytes # (auto) 0.01 K/uL (0.00-0.02); Immature Granulocytes % (auto) 0.2 %; Lymphocytes # (auto) 0.23 K/uL (1.2-3.4); Lymphocytes % (auto) 5.6 %; Mean Corpuscular Hemoglobin 30.9 pg (25-34); Mean Corpuscular Hgb Conc 32.4 g/dL (32-36); Mean Corpuscular Volume 95.3 fL (80-100); Mean Platelet Volume 10.1 fL (7.4-10.4); Monocytes # (auto) 0.55 K/uL (0.11-0.59); Monocytes % (auto) 13.4 %; Neutrophils # (auto) 3.12 K/uL (1.4-6.5); Neutrophils % (auto) 76.4 %; Nucleated RBC # (auto) 0.02 K/uL (0-0); Nucleated RBC % (auto) 0.4 %; Platelet Count 129 K/uL (130-400); RDW Coefficient of Variation 17.4 % (11.5-14.5); RDW Standard Deviation 58.4 fL (36.4-46.3); Red Blood Count 2.56 M/uL (4.2-5.4); White Blood Count 4.09 K/uL (4.8-10.8)
[2021-07-28] MEDS: ACETAMINOPHEN 1,000 MG/100 ML VIAL IV PRN ×2 (05:38→13:36)
[2021-07-28 05:46] LABS: INR 1.3 (0.9-1.1); Partial Thromboplastin Ratio 1.1; Partial Thromboplastin Time 29.3 Seconds (21.0-31.0); Prothrombin Time 13.7 Seconds (9.0-12.0)
[2021-07-28 05:53] LABS: Ovalocytes 1+
[2021-07-28 06:16] LABS: Calcium 7.9 mg/dl (8.5-10.1); Creatinine Clr Calc Pharmacy 30.1 ml/min; Est GFR (African American) 49.8 ml/min; Magnesium 2.3 mg/dl (1.7-2.4); Phosphorus 3.4 mg/dl (2.5-4.9); Potassium 3.8 mmol/L (3.5-5.1); Troponin I High Sensitivity 125.1 pg/ml (0-14)
--- NOTE | 2021-07-28 06:22 | Electrocardiogram Report ---
Test Reason : Blood Pressure : / mmHG Vent. Rate : 064 BPM Atrial Rate : 050 BPM P-R Int : 000 ms QRS Dur : 144 ms QT Int : 474 ms P-R-T Axes : 000 122 -64 degrees QTc Int : 489 ms Ventricular-paced rhythm with frequent Premature ventricular complexes Abnormal ECG When compared with ECG of 26-JUL-2021 05:33, No significant change Confirmed by Bg Toribio ([id number]) on 07/28/2021 6:21:52 AM Referred By: REFERRED SELF Confirmed By:Bg Toribio
--- NOTE | 2021-07-28 06:54 | Electrocardiogram Report ---
Test Reason : Blood Pressure : / mmHG Vent. Rate : 084 BPM Atrial Rate : 070 BPM P-R Int : 000 ms QRS Dur : 124 ms QT Int : 398 ms P-R-T Axes : 000 -02 164 degrees QTc Int : 470 ms Possible Junctional rhythm with occasional Premature ventricular complexes Non-specific intra-ventricular conduction delay Abnormal ECG When compared with ECG of 27-JUL-2021 03:26, Ventricular pacing is no longer present Confirmed by Bg Toribio ([id number]) on 07/28/2021 6:54:00 AM Referred By: REFERRED SELF Confirmed By:Bg Toribio
[2021-07-28] MEDS: LIDOCAINE 5% 1 PATCH TD SCH (08:00)
--- NOTE | 2021-07-28 09:32 | Critical Care Progress Note ---
Date of Service July 28, 2021 Assessment & Plan (1) High anion gap metabolic acidosis: (2) CASH (acute kidney injury): (3) Encephalopathy: (4) Atrial fibrillation: (5) Type II diabetes mellitus, uncontrolled: (6) Elevated troponin: (7) Sternal fracture: (8) CHI (closed head injury): Plan: Reason Critically Ill: 81-year-old female presents to the ICU with recent fall and sternal fracture and multiple rib fractures, now presents to the ICU with acute renal failure and acute encephalopathy Neuro - Acute encephalopathy: -Multifactorial as patient is currently in acute renal failure with elevated BUN. Patient is also received narcotics for pain control -Patient did also have a fall approximately 1 week ago and has a large hematoma on the face.CT head continues to be without acute intracranial findings. -Patient does have history of subarachnoid hemorrhage -Ammonia, LFTs within normal limits Cardiac - Transient hypotensionresolved following Narcan and fluid bolus Patient does have diastolic heart failure with ejection fraction of 50% and moderate pulmonary hypertension. Elevated troponin -Likely secondary to type II AL in a patient with CASH -EKG does not show any significant change compared to before -We will continue to trend troponins for now. Continue monitoring on telemetry. Atrial fibrillationpatient currently in paced rhythm. -Digoxin level 1.3 which came down to 0.9 -Resume digoxin 125 MCG every 48 hours Respiratory - Currently maintaining oxygen saturation on room air. CT chest did show bibasilar atelectasis, which suspect is likely due to rib/sternal fractures. Could consider BiPAP if this worsens GI - Resume clear liquids and advance as tolerated RENAL/LYTES - Acute renal failureimproving Creatinine of 2.0, with baseline 0.7. Suspect this may be ATN due to prior hypotension -High anion gap metabolic acidosis, likely secondary to elevated BUN, urine ketones have been negative, lactate negative -Continue to monitor BUNs/creatinine, avoid nephrotoxic medication -CT abdomen shows nonobstructing renal calculi. - Gonzalez insertedcontinue to monitor strict I's and the ENDO - DM type II, uncontrolledlast hemoglobin A1c 11.6. -Currently euglycemic, continue sliding scale. -ICU hyperglycemic protocol Hypothyroidcontinue Synthroid TSH 7.3 with normal free T4 0.66 HEME - H&H stable, monitor routine CBCs Ortho Patient with acute mildly displaced and angulated fracture at the mid sternal body with trace retrosternal hemorrhage and anterior L fourth and fifth rib fractures. Case was discussed with trauma service at [facility] on admission and no acute intervention was required. Continue with conservative management. ID - No clear indications for infectious process at this time. No leukocytosis, l actic acidosis, and procalcitonin within normal limits. atyuliana did have low-grade fever although she was on a Kendra hugger at the time and previously been hypothermic. She did have positive nasal MRSA. Procalcitonin negative --> DC antibiotics --Prophylaxis VTE: IPC GI: None Lines: Peripheral Diet: N.p.o. Plan: In/out: Positive for 1.3 L, urine output 1875 Patient's creatinine is gradually improving. She is on bicarb drip, nephrology is on board Clinically she is improving She is asking for pain medications but given the significant decrease in her mental status after opioids I will be very reluctant to give her any opioids Continue with Tylenol. Her creatinine is improving. Could consider ketorolac and/or ibuprofen on an as-needed basis Start clear liquids and advance as tolerated Resume digoxin 125 MCG every 48 hours DC bicarb drip. If the patient is not able to tolerate p.o. Normosol can be started at 75 mL/h Recommend discontinuing Gonzalez in the next 24-48 hours Case discussed with Dr. John Hemodynamically stable to be downgraded to medical floor Please note the above document was generated using voice recognition software. It may contain grammatical, syntax or spelling errors.Any formal questions or concerns about the content, text or information contained within the body of this dictation should be directly addressed to the provider for clarification. Admission and Anticipated Discharge Date Admission Date: July 26, 2021 Subjective Patient seen and examined at bedside. No acute distress, no dressings overnight Patient seems to be more alert today She is answering all the questions appropriately Does complain of generalized pain. Has been asking for food. Denies any headache, no blurry vision. No abdominal pain. Review of Systems Review of Systems: All systems reviewed & are unremarkable except as noted in Subjective Physical Exam Physical Exam: Constitutional: No acute distress HEENT: EOMI, PERRLA,bruising appreciated on the left side of the face Respiratory system: Decreased bilaterally, no wheeze, rhonchi, positive crackles bilaterally CVS: S1-S2 positive, accentuated P2 Abdomen: Soft, nontender, nondistended, positive bowel sounds x4 Extremities: +2 pulses bilaterally radialis/ dorsalis pedis, no cyanosis, +1 pitting edema bilateral lower extremity Neuro: Awake alert oriented x2 Psych: Normal mood and affect G/U: Positive Gonzalez Skin: no rashes, warm and dry Lymphatic: no cervical or axillary lymphadenopathy Results & Data Results & Data ([facility]) Vital Signs (Past 12 Hours) Vital Signs Temp Pulse Resp BP Pulse Ox 07/28/21 05:45 36.9 C 87 16 129/69 94 07/28/21 05:30 36.9 C 91 H 14 125/75 94 07/28/21 05:15 36.9 C 85 21 135/78 95 07/28/21 05:00 36.9 C 97 H 23 123/76 94 07/28/21 04:45 36.9 C 88 18 112/67 94 07/28/21 04:30 36.9 C 85 21 114/54 L 93 07/28/21 04:15 36.9 C 80 17 122/67 93 07/28/21 04:00 36.9 C 96 H 24 133/69 93 07/28/21 03:45 36.9 C 88 24 117/78 93 07/28/21 03:30 36.8 C 88 26 H 123/71 93 07/28/21 03:15 36.8 C 86 24 113/72 95 07/28/21 03:00 36.8 C 91 H 18 101/68 95 07/28/21 02:45 36.8 C 87 15 116/60 93 07/28/21 02:30 36.9 C 83 17 124/58 L 93 07/28/21 02:15 36.9 C 77 18 101/50 L 94 07/28/21 02:00 36.9 C 85 21 100/55 L 93 07/28/21 01:45 36.9 C 79 21 106/60 94 07/28/21 01:30 36.9 C 77 23 120/59 L 94 07/28/21 01:15 36.9 C 85 17 110/45 L 94 07/28/21 01:00 37.0 C 89 15 102/59 L 94 07/28/21 00:45 37.0 C 102 H 19 108/59 L 93 07/28/21 00:31 97 H 07/28/21 00:30 37.0 C 95 H 13 112/72 93 07/28/21 00:15 37.0 C 89 19 137/69 94 07/28/21 00:01 37.0 C 82 16 112/66 93 07/28/21 00:00 37.0 C 88 21 93 07/27/21 23:45 37.0 C 82 19 111/71 94 07/27/21 23:30 37.0 C 77 16 107/51 L 93 07/27/21 23:15 37.0 C 43 H 108/57 L 94 07/27/21 23:00 37.0 C 75 20 99/49 L 93 07/27/21 22:45 37.1 C 86 18 96/54 L 93 07/27/21 22:30 37.1 C 72 20 88/43 L 93 07/27/21 22:15 37.1 C 78 14 95/48 L 93 07/27/21 22:00 37.2 C 85 14 92/49 L 92 07/27/21 21:45 37.2 C 65 18 96/49 L 92 07/27/21 21:30 37.3 C 91 H 16 111/53 L 91 Laboratory Results 07/28/21 05:14 07/28/21 05:14 Coding Level of Care Code 00294 Subseq Hosp Care Lvl 3 Diagnoses High anion gap metabolic acidosis E87.2 CASH (acute kidney injury) N17.9 Encephalopathy G93.40 Atrial fibrillation I48.91 Type II diabetes mellitus, uncontrolled E11.65 Elevated troponin R77.8 Sternal fracture S22.20XA CHI (closed head injury) S09.90XA Encounter type: initial encounter (1) CHI (closed head injury) Encounter type: initial encounter Qualified Code(s): S09.90XA - Unspecified injury of head, initial encounter
--- NOTE | 2021-07-28 12:30 | Pharmacy Report ---
Pharmacy Glycemic Short Note 2 - Date of Service July 28, 2021 - Glycemic Short BSG Results (Last 24 hours): 07/27/21 07/27/21 07/27/21 15:43 15:46 20:11 Glucose 120 H POC Glucose 128 H 178 H 07/28/21 07/28/21 07/28/21 00:03 03:26 05:14 Glucose 187 H POC Glucose 192 H 213 H 07/28/21 07/28/21 07:46 11:43 Glucose POC Glucose 211 H 178 H OUTPATIENT ANTIDIABETIC REGIMEN: * Per patient: * Lantus 13 units SC daily * Humalog 5-6 units SC TIDM * HbA1c: 11.6% (06/11/21) ASSESSMENT: 07/28 * BSGs largely within goal range the last 24 hr. * Basal has been held d/t NPO status and encephalopathy to minimize lows. Diet is being titrated today to clear liquids. IVF containing dextrose have been discontinued. Received a total of 4 units of bolus insulin yesterday. * Novolog parameters tightened today given AM BSG in low 200s and initiation of diet. Plan to reassess basal in AM. 07/26 * CO is a 81 year old female with multiple rib fractures secondary to recent mechanical fall * BSG of 175 and 179 mg/dL so far since admission * Variable insulin needs based on prior admission data, will be conservative with initial insulin dosing * Also presents with CASH (SCr 1.87 vs. baseline SCr ~0.8) PLAN FOR INPATIENT GLYCEMIC CONTROL: * Basal insulin * n/a * Bolus insulin * NovoLog per scale ACHS or Q6hrs while NPO * Goal Range: Low 110 mg/dL - High 140 mg/dL * Correction Factor: 25 mg/dL/unit * Nutritional / Prandial insulin per carb ratio of 1 unit per 10 grams CHO consumed
[2021-07-28] MEDS: ACETAMINOPHEN 325 MG TAB PO SCH ×2 (16:07→21:23)
--- NOTE | 2021-07-28 16:55 | Hospitalist Progress Note ---
Date of Service July 28, 2021 Assessment & Plan (1) Sternal fracture: (2) Multiple rib fractures: (3) CASH (acute kidney injury): (4) High anion gap metabolic acidosis: (5) Chest pain: (6) Elevated troponin: (7) CHI (closed head injury): (8) Diabetic leg ulcer: (9) Type II diabetes mellitus, uncontrolled: (10) Chronic anemia: Plan: per admitting service notes with addendum: This is a 81-year-old female who has significant past history of insulin-depende nt T2DM uncontrolled, PAF not anticoagulated on warfarin, history of sinus node dysfunction status post pacemaker placement in 2009, chronic HFpEF, peripheral neuropathy, hypothyroidism, HTN, HLD who presents to ED after experiencing chest pain and shortness of breath x1 week. Of significance patient sustained a fall approximately 1 week ago. Acute mildly displaced and angulated fracture of the mid sternal body with trace retrosternal hemorrhage. Anterior L 4th and 5th rib fracture Anterior chest wall pain elevated troponin Mechanical Fall 1 week ago admit to PCU ED provider discussed cased with trauma service at [facility], Dr. Clark, who stated no acute intervention required, conservative management at this time, if further sx evolve can reach out to trauma service at [facility], no transfer necessary pain management with ICE, lidocaine patch, scheduled APAP, prn IV morphine or PO oxy IR obtain echocardiogram cycle troponins ekg in a.m. PT/OT hold on cards consult for now incentive spirometry 07/28 feels sore all over denies chest pain on exam Echo: no mention of contusion Tylenol PO q6h ordered NO narcotics Metabolic vs toxic encephalopathy likely Multifactorial from: Narcotics Acute Renal Failure Possible Lower Extremity Cellulitis, Infected wound, Left (Hx of Left leg wound 07/04, Enterococus + MSSA) - additional Narcan ordered today - hold Narcotics management of ARF per below - Wound Culture ordered Blood culture: negative so far Urine culture: Vivienne - Zosyn discontinued for now monitor CASH Anion gap metabolic acidosis baseline cr 0.6-0.7 pt with poor po intake hold losartan, lasix and aldactone 4/145 crea 1.2 HCO3 22 HCO3 drip discontinued Nephro consulted Closed head injury L facial ecchymosis and L frontal scalp hematoma pt c/o headache, dizziness repeat CT head: No significant change compared to the prior study. No acute intracranial abnormality. monitor closely B/L Lower ext venous stasis Possible lower extremity cellulitis Diabetic ulcer to L leg consult wound care IV Zosyn discontinued per ICU team, does not seem to be cellulitis Wound culture: pending Blood culture: negative so far Chronic HFpEF HTN on losartan, metoprolol, lasix and aldactone as outpt hold losartan, lasix and aldactone daily weights, strict I and O Uncontrolled insulin dependent T2DM Lantus/novolog per protocol a1c 10.7 07/05/21 consult glycemic pharmacy due to reduced intake Afib hx of TBS s/p PPM 2009 interrogate pacer continue metoprolol and digoxin (q48h) not on OAC 2/2 to hx of SAH Chronic anemia baseline hgb 9-10 hgb 9.3 --> 7.9 monitor closely DVT ppx: SCD/TEDS for now, no chemical prophylaxis in setting of recent trauma, trace retrosternal hemorrhage and hx of SAH Dispo: PCU, pt likely to need acute inpt rehab FULL CODE PCP: Gege Fontenot Admission and Anticipated Discharge Date Admission Date: July 26, 2021 Subjective ff up for sternal fracture, AMS, etc seen resting in bed, comfortable alert, oriented x 3, smiling answers all questions appropriately states she feels sore all over, no specific area hurts more no chest pain, dyspnea, palpitations, dizziness no abdominal pain ,nausea tolerating clears no leg pain no fever/chills no other symptoms Review of Systems Review of Systems: all noted and negative except for above Physical Exam Physical Exam: General- oriented x 2, not in distress, speaks in sentences with no effort or accessory muscle use Face- (+) ecchymoses L lower face Eyes- anicteric Neck- no JVD Lungs- clear breath sounds bilaterally, no rales/wheezes Heart- normal rate, regular rhythm; no murmurs Abdomen- normal bowel sounds, nondistended, soft, nontender Extremities- LUE: moderate edema, no warmth/tenderness/erythema RUE: essentially normal LLE: open superfical wound, yellow discharge with mild erythema,no warmth/tenderness RLE: mild erythema, no warmth/tenderness no pretibial edema, no calf tenderness Neuro- alert, oriented x 3; no gross focal neurologic deficits Skin- warm & dry Results & Data Results & Data ([facility]) Vital Signs (Past 12 Hours) Vital Signs Temp Pulse Resp BP Pulse Ox 07/28/21 08:30 36.7 C 85 23 122/74 94 07/28/21 08:00 36.8 C 102 H 14 127/72 94 07/28/21 07:45 36.8 C 94 H 22 125/68 94 07/28/21 07:30 36.8 C 97 H 16 122/67 95 07/28/21 07:15 36.8 C 96 H 19 109/62 96 07/28/21 07:00 36.8 C 89 13 114/59 L 94 07/28/21 06:45 36.8 C 91 H 13 114/63 94 07/28/21 06:30 36.9 C 90 16 107/54 L 95 07/28/21 06:15 36.9 C 92 H 25 H 116/76 93 07/28/21 06:00 36.9 C 97 H 16 122/74 93 07/28/21 05:45 36.9 C 87 16 129/69 94 07/28/21 05:30 36.9 C 91 H 14 125/75 94 07/28/21 05:15 36.9 C 85 21 135/78 95 07/28/21 05:00 36.9 C 97 H 23 123/76 94 all noted and reviewed including below (1) CHI (closed head injury) Encounter type: initial encounter Qualified Code(s): S09.90XA - Unspecified injury of head, initial encounter
--- NOTE | 2021-07-28 19:02 | Nephrology Progress Note ---
Date of Service July 28, 2021 Assessment & Plan (1) CASH (acute kidney injury): Plan: Cause unclear: concerning for ATN in the setting of sepsis. Suspect also this may relate to medications since she is only recently returned home after extended stay at assisted living while not admitted here or at acute rehab and has been resisting/refusing some f/u. baseline creatinine 0.6-0.7 as OP Chemistries are now normal, cr almost at baseline. -Continue to gabapentin, MRA, ARB, loop, no NSAIDS please -d/c bicarbonate drip -start on Plasmalyte at 75 mls/hr only if Oral intake is not adequate. (2) High anion gap metabolic acidosis: Plan: Resoved (3) Encephalopathy: Plan: Metabolic vs toxic encephalopathy Multifactorial Narcotics,,Possible Lower Extremity Cellulitis, Infected wound, Left (Hx of Left leg wound 07/04, Enterococus + MSSA Resolved (4) Fall: Plan: She has extensive injuries for one reported fall > -recommend discussion w/ family to get better hx -defer to primary service to screen for abuse (5) Congestive heart failure: Plan: has had variable heart function over past year > transiently depressed EF 02/2021; now w/ R HF on TTE yesterday -caution w/ fluids -f/u pending digoxin level --spironolactone, ARB, lasix on hold Admission and Anticipated Discharge Date Admission Date: July 26, 2021 Subjective seen resting in bed, comfortable alert, oriented x 3, smiling c/o of soreness all over the body Review of Systems Review of Systems: All systems reviewed & are unremarkable except as noted in HPI & below Physical Exam Physical Exam: General- oriented x 2, not in distress, Face- (+) ecchymoses L lower face Lungs- clear breath sounds bilaterally, no rales/wheezes Heart- normal rate, regular rhythm; no murmurs Abdomen- normal bowel sounds, nondistended, soft, nontender Extremities- LUE: moderate edema, no warmth/tenderness/erythema LLE: open superfical wound, yellow discharge with mild erythema no pretibial edema, no calf tenderness Neuro- alert, oriented x 3; no gross focal neurologic deficits Results & Data ([facility]) Vital Signs (Past 12 Hours) Vital Signs Temp Pulse Resp BP Pulse Ox 07/28/21 18:00 36.6 C 97 H 19 07/28/21 17:30 36.5 C 100 H 16 126/76 96 07/28/21 17:00 36.5 C 103 H 15 135/76 97 07/28/21 16:30 36.7 C 100 H 18 135/86 96 07/28/21 16:00 36.7 C 103 H 17 125/89 95 07/28/21 15:30 36.7 C 97 H 18 121/83 94 07/28/21 15:00 36.7 C 92 H 17 146/81 H 94 07/28/21 14:30 36.7 C 79 15 123/76 96 07/28/21 14:00 36.7 C 78 23 119/63 94 07/28/21 13:30 36.7 C 98 H 14 125/71 95 07/28/21 13:00 36.7 C 89 13 137/70 94 07/28/21 12:30 36.6 C 105 H 27 H 132/78 93 07/28/21 12:00 36.6 C 104 H 19 132/101 H 94 07/28/21 11:31 36.6 C 95 H 22 93 07/28/21 11:30 142/86 H 07/28/21 11:29 36.5 C 93 H 20 93 07/28/21 11:00 36.5 C 110 H 14 129/77 94 07/28/21 10:30 36.5 C 108 H 25 H 117/76 95 07/28/21 10:00 36.5 C 94 H 12 115/58 L 96 07/28/21 09:30 36.6 C 104 H 15 118/54 L 95 07/28/21 09:00 36.7 C 96 H 16 124/79 96 07/28/21 08:30 36.7 C 85 23 122/74 94 07/28/21 08:00 36.8 C 102 H 14 127/72 94 07/28/21 07:45 36.8 C 94 H 22 125/68 94 07/28/21 07:30 36.8 C 97 H 16 122/67 95 07/28/21 07:15 36.8 C 96 H 19 109/62 96 07/28/21 07:00 36.8 C 89 13 114/59 L 94 Laboratory Results 07/28/21 05:14 07/28/21 05:14 (1) Fall Encounter type: initial encounter Qualified Code(s): W19.XXXA - Unspecified fall, initial encounter
[2021-07-28] MEDS: DIGOXIN 0.125 MG TAB PO SCH (21:22)
[2021-07-28] MEDS: MULTIVITAMIN TAB PO SCH (21:22)
[2021-07-28] MEDS: LEVOTHYROXINE SODIUM 75 MCG TABLET PO SCH (21:22)
[2021-07-29] MEDS: ACETAMINOPHEN 325 MG TAB PO SCH ×4 (04:01→21:23)
[2021-07-29 05:30] LABS: INR 1.3 (0.9-1.1); Partial Thromboplastin Ratio 1.1; Partial Thromboplastin Time 29.7 Seconds (21.0-31.0); Prothrombin Time 13.9 Seconds (9.0-12.0)
[2021-07-29 05:41] LABS: BUN Creatinine Ratio 44.8 (10-20); Calcium 8.1 mg/dl (8.5-10.1); Creatinine Clr Calc Pharmacy 53.8 ml/min; Est GFR (African American) 96.9 ml/min; Est GFR (Non-African American) 83.6 ml/min; Phosphorus 2.5 mg/dl (2.5-4.9); Potassium 3.8 mmol/L (3.5-5.1)
--- NOTE | 2021-07-29 06:29 | Electrocardiogram Report ---
Test Reason : Blood Pressure : / mmHG Vent. Rate : 089 BPM Atrial Rate : 441 BPM P-R Int : 000 ms QRS Dur : 128 ms QT Int : 392 ms P-R-T Axes : 000 -20 165 degrees QTc Int : 476 ms Atrial fibrillation with occasional ventricular-paced complexes and with premature ventricular or víctor rrantly conducted complexes Non-specific intra-ventricular conduction block T wave abnormality, consider lateral ischemia Abnormal ECG When compared with ECG of 27-JUL-2021 10:42, Ventricular paced complexes are now present Confirmed by Bg Toribio ([id number]) on 07/29/2021 6:29:17 AM Referred By: REFERRED SELF Confirmed By:Bg Toribio
[2021-07-29] MEDS: INSULIN ASPART PER UNIT SC SCH ×4 (07:57→21:24)
[2021-07-29] MEDS: LIDOCAINE 5% 1 PATCH TD SCH (08:07)
[2021-07-29 08:55] LABS: Basophils # (auto) 0.01 K/uL (0-0.2); Basophils % (auto) 0.2 %; Eosinophils # (auto) 0.11 K/uL (0-0.5); Eosinophils % (auto) 2.2 %; Hematocrit (blood only) 25.4 % (37-47); Immature Granulocytes # (auto) 0.01 K/uL (0.00-0.02); Immature Granulocytes % (auto) 0.2 %; Lymphocytes # (auto) 0.71 K/uL (1.2-3.4); Lymphocytes % (auto) 14.3 %; Mean Corpuscular Hemoglobin 30.4 pg (25-34); Mean Corpuscular Hgb Conc 31.5 g/dL (32-36); Mean Corpuscular Volume 96.6 fL (80-100); Mean Platelet Volume 10.4 fL (7.4-10.4); Monocytes # (auto) 0.74 K/uL (0.11-0.59); Monocytes % (auto) 14.9 %; Neutrophils % (auto) 68.2 %; Platelet Count 149 K/uL (130-400); RDW Coefficient of Variation 18.1 % (11.5-14.5); RDW Standard Deviation 61.4 fL (36.4-46.3); Red Blood Count 2.63 M/uL (4.2-5.4); White Blood Count 4.98 K/uL (4.8-10.8)
--- NOTE | 2021-07-29 09:27 | XRay Report ---
XR forearm RT 2V CLINICAL HISTORY: fall, pain. COMPARISON STUDY: No previous studies for comparison. TECHNIQUE: AP and lateral right forearm views FINDINGS: Bones: There is no evidence for an acute fracture or dislocation. There is no lytic or blastic lesion . Joints: Joint space narrowing and degenerative changes are seen at the radiocarpal joint. The bones a re in anatomic alignment. Soft tissues: There is no focal soft tissue abnormality. IV is in place. Soft tissue calcifications a re seen throughout the forearm. There is no radiopaque foreign body. IMPRESSION: 1. No acute osseous pathology. 2. Degenerative changes are present. ACT 112: Negative or not required by law. Electronically signed by: Tomasz Mosqueda M.D. 07/29/2021 9:26 AM
--- NOTE | 2021-07-29 11:47 | Electrocardiogram Report ---
Test Reason : Blood Pressure : / mmHG Vent. Rate : 103 BPM Atrial Rate : 038 BPM P-R Int : 000 ms QRS Dur : 130 ms QT Int : 386 ms P-R-T Axes : 000 -21 163 degrees QTc Int : 505 ms Atrial fibrillation with ocasionoal PVCs Left bundle branch block Abnormal ECG Confirmed by Artur Wolf ([id number]) on 07/29/2021 11:47:07 AM Referred By: REFERRED SELF Confirmed By:Rayshawn Wolf
[2021-07-29] MEDS ORDERED: INSULIN GLARGINE SOLOSTAR 100 UNITS/ML 3 ML PEN SC ONE (12:15)
[2021-07-29] MEDS ORDERED: traMADol HCL 50 MG TABLET PO STA (13:36)
[2021-07-29] MEDS ORDERED: LIDOCAINE 5% 1 PATCH TD SCH (13:45)
--- NOTE | 2021-07-29 14:24 | Pharmacy Report ---
Pharmacy Glycemic Short Note 2 - Date of Service July 29, 2021 - Glycemic Short BSG Results (Last 24 hours): 07/28/21 07/28/21 07/29/21 16:32 20:25 05:04 Glucose 115 H POC Glucose 167 H 146 H 07/29/21 07/29/21 07:44 11:53 Glucose POC Glucose 134 H 241 H OUTPATIENT ANTIDIABETIC REGIMEN: * Per patient: * Lantus 13 units SC daily * Humalog 5-6 units SC TIDM * HbA1c: 11.6% (06/11/21) ASSESSMENT: 07/29 * BSGs yesterday of 211, 178, 167, and 146 mg/dL, fasting BSG of 134 mg/dL * Diet advancing from clears, 50 g CHO documented so far today and lunch BSG of 241 mg/dL * Will restart basal insulin and slightly tighen carb coverage based on prior admission data 07/28 * BSGs largely within goal range the last 24 hr. * Basal has been held d/t NPO status and encephalopathy to minimize lows. Diet is being titrated today to clear liquids. IVF containing dextrose have been discontinued. Received a total of 4 units of bolus insulin yesterday. * Novolog parameters tightened today given AM BSG in low 200s and initiation of diet. Plan to reassess basal in AM. 07/26 * CO is a 81 year old female with multiple rib fractures secondary to recent mechanical fall * BSG of 175 and 179 mg/dL so far since admission * Variable insulin needs based on prior admission data, will be conservative with initial insulin dosing * Also presents with CASH (SCr 1.87 vs. baseline SCr ~0.8) PLAN FOR INPATIENT GLYCEMIC CONTROL: * Basal insulin * 10 units SC x 1 * Reassess in AM * Bolus insulin * NovoLog per scale ACHS or Q6hrs while NPO * Goal Range: Low 110 mg/dL - High 140 mg/dL * Correction Factor: 25 mg/dL/unit * Nutritional / Prandial insulin per carb ratio of 1 unit per 8 grams CHO consumed
--- NOTE | 2021-07-29 14:35 | Nephrology Progress Note ---
Date of Service July 29, 2021 Assessment & Plan (1) CASH (acute kidney injury): Plan: Cause unclear: concerning for ATN in the setting of sepsis. Suspect also this may relate to medications since she is only recently returned home after extended stay at assisted living while not admitted here or at acute rehab and has been resisting/refusing some f/u. baseline creatinine 0.6-0.7 as OP Chemistries are now normal, cr at baseline. -Continue to withhold gabapentin, MRA, ARB, loop, no NSAIDS please -Chemistries normal (2) High anion gap metabolic acidosis: Plan: Resoved (3) Encephalopathy: Plan: Metabolic vs toxic encephalopathy Multifactorial Narcotics,,Possible Lower Extremity Cellulitis, Infected wound, Left (Hx of Left leg wound 07/04, Enterococus + MSSA Resolved (4) Fall: Plan: She has extensive injuries for one reported fall > -recommend discussion w/ family to get better hx -defer to primary service to screen for abuse (5) Congestive heart failure: Plan: has had variable heart function over past year > transiently depressed EF 02/2021; now w/ R HF -caution w/ fluids --spironolactone, ARB, lasix on hold Admission and Anticipated Discharge Date Admission Date: July 26, 2021 Subjective Resting in bed, comfortable alert, oriented x 3 Pain better Review of Systems 2 Review of Systems: All systems reviewed & are unremarkable except as noted in Subjective Physical Exam Physical Exam: General- oriented x 3, not in distress, Face- (+) ecchymoses L lower face Lungs- clear breath sounds bilaterally, no rales/wheezes Heart- normal rate, regular rhythm; no murmurs Abdomen- normal bowel sounds, nondistended, soft, nontender Extremities- LUE: moderate edema, no warmth/tenderness/erythema LLE: open superfical wound, yellow discharge with mild erythema no pretibial edema, no calf tenderness Neuro- alert, oriented x 3; no gross focal neurologic deficits Results & Data ([facility]) Vital Signs (Past 12 Hours) Vital Signs Temp Pulse Pulse Resp BP BP Pulse Ox 07/29/21 12:00 36.8 C 109 H 24 128/78 94 07/29/21 10:00 36.8 C 101 H 20 90 07/29/21 08:00 36.8 C 101 H 22 90 07/29/21 07:51 36.7 C 122 H 17 158/91 H 93 07/29/21 07:30 37 C 07/29/21 07:00 36.7 C 100 H 16 99 07/29/21 04:00 36.6 C 103 H 15 147/84 H 97 Laboratory Results 07/29/21 05:04 07/29/21 05:04 (1) Fall Encounter type: initial encounter Qualified Code(s): W19.XXXA - Unspecified fall, initial encounter
[2021-07-29 15:20] LABS: Uric Acid, Random Urine 6 mg/dL
--- NOTE | 2021-07-29 17:53 | Hospitalist Progress Note ---
Date of Service July 29, 2021 delayed entry date of service noted above Assessment & Plan (1) Sternal fracture: (2) Multiple rib fractures: (3) CASH (acute kidney injury): (4) High anion gap metabolic acidosis: (5) Chest pain: (6) Elevated troponin: (7) CHI (closed head injury): (8) Diabetic leg ulcer: (9) Type II diabetes mellitus, uncontrolled: (10) Chronic anemia: Plan: per admitting service notes with addendum: This is a 81-year-old female who has significant past history of insulin- dependent T2DM uncontrolled, PAF not anticoagulated on warfarin, history of sinus node dysfunction status post pacemaker placement in 2009, chronic HFpEF, peripheral neuropathy, hypothyroidism, HTN, HLD who presents to ED after experiencing chest pain and shortness of breath x1 week. Of significance patient sustained a fall approximately 1 week ago. Acute mildly displaced and angulated fracture of the mid sternal body with trace retrosternal hemorrhage. Anterior L 4th and 5th rib fracture Anterior chest wall pain elevated troponin Mechanical Fall 1 week ago admit to PCU ED provider discussed cased with trauma service at [facility], Dr. Clark, who stated no acute intervention required, conservative management at this time, if further sx evolve can reach out to trauma service at [facility], no transfer necessary pain management with ICE, lidocaine patch, scheduled APAP, prn IV morphine or PO oxy IR obtain echocardiogram cycle troponins ekg in a.m. PT/OT hold on cards consult for now incentive spirometry 07/29 (+)sternal pain Echo: no mention of contusion Tylenol PO q6h ordered add PRN Tramadol NO narcotics Metabolic vs toxic encephalopathy likely Multifactorial from: Narcotics Acute Renal Failure Possible Lower Extremity Cellulitis, Infected wound, Left (Hx of Left leg wound 07/04, Enterococus + MSSA) - additional Narcan ordered today - hold Narcotics management of ARF per below - Wound Culture ordered Blood culture: negative so far Urine culture: Vivienne - Zosyn discontinued for now - leg erythema improving CASH Anion gap metabolic acidosis baseline cr 0.6-0.7 pt with poor po intake hold losartan, lasix and aldactone 07/29 crea 1.2 HCO3 22 HCO3 drip discontinued Nephro consulted Closed head injury L facial ecchymosis and L frontal scalp hematoma pt c/o headache, dizziness repeat CT head: No significant change compared to the prior study. No acute intracranial abnormality. improving B/L Lower ext venous stasis Possible lower extremity cellulitis Diabetic ulcer to L leg consult wound care IV Zosyn discontinued per ICU team, does not seem to be cellulitis Wound culture: pending Blood culture: negative so far seems to be improving off antibiotics Chronic HFpEF HTN on losartan, metoprolol, lasix and aldactone as outpt hold losartan, lasix and aldactone daily weights, strict I and O Uncontrolled insulin dependent T2DM Lantus/novolog per protocol a1c 10.7 07/05/21 consult glycemic pharmacy due to reduced intake Afib hx of TBS s/p PPM 2009 interrogate pacer continue metoprolol and digoxin (q48h) not on OAC 2/2 to hx of SAH Chronic anemia baseline hgb 9-10 hgb 9.3 --> 7.9 monitor closely DVT ppx: SCD/TEDS for now, no chemical prophylaxis in setting of recent trauma, trace retrosternal hemorrhage and hx of SAH Dispo: PCU, pt likely to need acute inpt rehab FULL CODE PCP: Gege Fontenot Admission and Anticipated Discharge Date Admission Date: July 26, 2021 Subjective ff up for sternal fracture, etc seen resting in bed, not in distress oriented, not in distress reports sternal pain and rib pain no chest pain, dyspnea, palpitations, dizziness no abdominal pain/nausea/vomiting no other symptoms Review of Systems Review of Systems: all noted and negative except for above Physical Exam Physical Exam: General- oriented x 3, not in distress, speaks in sentences with no effort or accessory muscle use Eyes- anicteric face- ecchymoses on left lower face Neck- no JVD Lungs- clear BS bilaterally, no rales/wheezes Heart- normal rate, regular rhythm; no murmurs Abdomen- normal bowel sounds, nondistended, soft, nontender Extremities- no edema, no calf tenderness lower leg erythema improving LLE wound: healing, no active discharge Neuro- alert, oriented x 3; no gross focal neurologic deficits Skin- warm & dry Results & Data Results & Data ([facility]) Vital Signs (Past 12 Hours) Vital Signs Temp Pulse Resp BP Pulse Ox 07/29/21 16:53 92 H 07/29/21 16:42 37.3 C 120 H 18 146/82 H 93 07/29/21 16:00 37.2 C 97 H 17 94 07/29/21 14:00 37.0 C 16 97 07/29/21 12:46 36.9 C 92 H 17 128/78 94 07/29/21 12:00 36.8 C 109 H 24 128/78 94 07/29/21 10:00 36.8 C 101 H 20 90 07/29/21 08:00 36.8 C 101 H 22 90 07/29/21 07:51 36.7 C 122 H 17 158/91 H 93 07/29/21 07:30 37 C 07/29/21 07:00 36.7 C 100 H 16 99 all noted and reviewed including below (1) CHI (closed head injury) Encounter type: initial encounter Qualified Code(s): S09.90XA - Unspecified injury of head, initial encounter
[2021-07-29] MEDS: traMADol HCL 50 MG TABLET PO PRN (21:23)
[2021-07-29] MEDS: LEVOTHYROXINE SODIUM 75 MCG TABLET PO SCH (21:25)
[2021-07-29] MEDS: MULTIVITAMIN TAB PO SCH (21:25)
[2021-07-30] MEDS: ONDANSETRON INJ 2 MG/ML 2 ML VIAL IV PRN (03:17)
[2021-07-30] MEDS: traMADol HCL 50 MG TABLET PO PRN ×3 (04:09→21:42)
[2021-07-30] MEDS: ACETAMINOPHEN 325 MG TAB PO SCH ×4 (04:10→21:43)
[2021-07-30 05:25] LABS: Basophils # (auto) 0.01 K/uL (0-0.2); Basophils % (auto) 0.2 %; Eosinophils # (auto) 0.08 K/uL (0-0.5); Eosinophils % (auto) 1.4 %; Hematocrit (blood only) 26.7 % (37-47); Hemoglobin 8.4 g/dL (12.0-16.0); Immature Granulocytes # (auto) 0.01 K/uL (0.00-0.02); Immature Granulocytes % (auto) 0.2 %; Lymphocytes # (auto) 0.74 K/uL (1.2-3.4); Lymphocytes % (auto) 13.3 %; Mean Corpuscular Hemoglobin 31.1 pg (25-34); Mean Corpuscular Hgb Conc 31.5 g/dL (32-36); Mean Corpuscular Volume 98.9 fL (80-100); Mean Platelet Volume 10.1 fL (7.4-10.4); Monocytes # (auto) 0.78 K/uL (0.11-0.59); Neutrophils # (auto) 3.94 K/uL (1.4-6.5); Neutrophils % (auto) 70.9 %; Platelet Count 160 K/uL (130-400); RDW Coefficient of Variation 18.6 % (11.5-14.5); RDW Standard Deviation 65.9 fL (36.4-46.3); White Blood Count 5.56 K/uL (4.8-10.8)
[2021-07-30 05:43] LABS: BUN Creatinine Ratio 42.4 (10-20); Calcium 8.3 mg/dl (8.5-10.1); Creatinine Clr Calc Pharmacy 61.2 ml/min; Est GFR (Non-African American) 87.2 ml/min; Potassium 4.4 mmol/L (3.5-5.1)
[2021-07-30] MEDS: INSULIN ASPART PER UNIT SC SCH ×4 (08:27→21:42)
[2021-07-30] MEDS: LIDOCAINE 5% 1 PATCH TD SCH (08:31)
[2021-07-30] MEDS ORDERED: PROMETHAZINE HCL 6.25 MG in SODIUM CHLORIDE 0.9% 50 ML IV PRN (08:50)
[2021-07-30] MEDS ORDERED: INSULIN GLARGINE SOLOSTAR 100 UNITS/ML 3 ML PEN SC ONE (17:30)
--- NOTE | 2021-07-30 18:04 | XRay Report ---
XR chest 1V portable HISTORY: 81 years-old Female R/O ASPIRATION acute shortness of breath with possible aspiration COMPARISON: Chest CT 07/27/2021 TECHNIQUE: Portable AP view of the chest FINDINGS: Marked enlargement of the cardiac silhouette is redemonstrated. Left subclavian pacer. Small pleural effusions. Interstitial coarsening with pulmonary vascular congestion. Hiatal hernia with left lung b ase opacities. No pneumothorax. Degenerative changes of the shoulders and spine. IMPRESSION: 1. Cardiomegaly with pulmonary edema. 2. Small pleural effusions with mild left lung base opacities suggestive of atelectasis versus pneumo nitis. 3. Hiatal hernia. ACT 112: Negative or not required by law. The above report was generated using voice recognition software. It may contain grammatical, syntax o r spelling errors. Electronically signed by: Sarthak Quigley M.D. 07/30/2021 6:02 PM
--- NOTE | 2021-07-30 18:05 | Hospitalist Progress Note ---
Date of Service July 30, 2021 Assessment & Plan (1) Sternal fracture: Plan: This is a 81-year-old female who has significant past history of insulin- dependent T2DM uncontrolled, PAF not anticoagulated on warfarin, history of sinus node dysfunction status post pacemaker placement in 2009, chronic HFpEF, peripheral neuropathy, hypothyroidism, HTN, HLD who presents to ED after experiencing chest pain and shortness of breath x1 week. Of significance patient sustained a fall approximately 1 week ago. Acute mildly displaced and angulated fracture of the mid sternal body with trace retrosternal hemorrhage. Anterior L 4th and 5th rib fracture Anterior chest wall pain elevated troponin Mechanical Fall 1 week ago admit to PCU ED provider discussed cased with trauma service at [facility], Dr. Clark, who stated no acute intervention required, conservative management at this time, if further sx evolve can reach out to trauma service at [facility], no transfer necessary pain management with ICE, lidocaine patch, scheduled APAP, prn IV morphine or PO oxy IR obtain echocardiogram cycle troponins ekg in a.m. PT/OT hold on cards consult for now incentive spirometry 07/30 (+)sternal pain improving Echo: no mention of contusion Tylenol PO q6h ordered PRN Tramadol NO narcotics Metabolic vs toxic encephalopathy likely Multifactorial from: Narcotics Acute Renal Failure Possible Lower Extremity Cellulitis, Infected wound, Left (Hx of Left leg wound 07/04, Enterococus + MSSA) - responded to Narcan - hold Narcotics management of ARF per below - Wound Culture ordered Blood culture: negative so far Urine culture: Vivienne - Zosyn discontinued for now - leg erythema improving CASH Anion gap metabolic acidosis baseline cr 0.6-0.7 pt with poor po intake hold losartan, lasix and aldactone 07/29 crea 0.59 HCO3 27 HCO3 drip discontinued Nephro consulted Closed head injury L facial ecchymosis and L frontal scalp hematoma pt c/o headache, dizziness repeat CT head: No significant change compared to the prior study. No acute intracranial abnormality. improving B/L Lower ext venous stasis Possible lower extremity cellulitis Diabetic ulcer to L leg consult wound care IV Zosyn discontinued per ICU team, does not seem to be cellulitis Wound culture: pending Blood culture: negative so far seems to be improving off antibiotics Chronic HFpEF HTN on losartan, metoprolol, lasix and aldactone as outpt hold losartan, lasix and aldactone daily weights, strict I and O Uncontrolled insulin dependent T2DM Lantus/novolog per protocol a1c 10.7 07/05/21 consult glycemic pharmacy due to reduced intake Afib hx of TBS s/p PPM 2009 interrogate pacer continue metoprolol and digoxin (q48h) not on OAC 2/2 to hx of SAH Chronic anemia baseline hgb 9-10 hgb 9.3 --> 8.4 monitor closely DVT ppx: SCD/TEDS for now, no chemical prophylaxis in setting of recent trauma, trace retrosternal hemorrhage and hx of SAH Dispo: PCU, pt likely to need acute inpt rehab FULL CODE PCP: Gege Fontenot Admission and Anticipated Discharge Date Admission Date: July 26, 2021 Subjective ff up for sternal fracture, etc seen resting in bed, comfortable states sternal and rib pain is better no chest pain, dyspnea, palpitations, dizziness no abdominal pain ,nausea/vomiting no leg pain no other new symptoms Review of Systems Review of Systems: all noted and negative except for above Physical Exam Physical Exam: General- oriented x 3, not in distress, speaks in sentences with no effort or accessory muscle use Face- ecchymoses on the lower half L, improving Eyes- anicteric Neck- no JVD Lungs- clear BS bilaterally, no rales/wheezes Heart- normal rate, regular rhythm; no murmurs Abdomen- normal bowel sounds, nondistended, soft, nontender Extremities- no pretibial edema, no calf tenderness leg erythema improving no active d/c on LLE wound Neuro- alert, oriented x 3; no gross focal neurologic deficits Skin- warm & dry Results & Data Results & Data ([facility]) Vital Signs (Past 12 Hours) Vital Signs Temp Pulse Resp BP Pulse Ox 07/30/21 16:04 37.2 C 07/30/21 16:00 37.4 C 107 H 11 L 82 L 07/30/21 15:45 37.4 C 96 H 15 146/83 H 91 07/30/21 14:00 37.5 C 109 H 14 92 07/30/21 12:26 37.2 C 108 H 18 146/101 H 93 07/30/21 12:00 37.1 C 109 H 13 92 07/30/21 11:00 36.9 C 106 H 19 95 07/30/21 10:00 36.7 C 105 H 19 147/87 H 92 07/30/21 09:56 36.8 C 102 H 12 133/83 95 07/30/21 09:00 36.8 C 109 H 12 93 07/30/21 08:43 36.9 C 114 H 16 158/93 H 93 07/30/21 08:00 36.6 C 99 H 15 91 07/30/21 07:00 36.5 C 98 H 52 H 90 all noted and reviewed including below (1) Sternal fracture Encounter type: initial encounter Fracture type: closed Sternal location: body of sternum Qualified Code(s): S22.22XA - Fracture of body of sternum, initial encounter for closed fracture
[2021-07-30] MEDS ORDERED: FUROSEMIDE INJ 20 MG/2 ML VIAL IV ONE (18:16)
--- NOTE | 2021-07-30 18:30 | Nephrology Progress Note ---
Date of Service July 30, 2021 Assessment & Plan (1) CASH (acute kidney injury): Plan: Cause unclear: concerning for ATN in the setting of sepsis. Suspect also this may relate to medications since she is only recently returned home after extended stay at assisted living while not admitted here or at acute rehab and has been resisting/refusing some f/u. baseline creatinine 0.6-0.7 as OP Chemistries are now normal, cr at baseline. -Continue to withhold gabapentin, MRA, ARB, loop, no NSAIDS please, Diuretics can be restarted later if needed. -Chemistries normal Nephrology will sign off. Please call back with questions. (2) High anion gap metabolic acidosis: Plan: Resoved (3) Encephalopathy: Plan: Metabolic vs toxic encephalopathy Multifactorial Narcotics,,Possible Lower Extremity Cellulitis, Infected wound, Left (Hx of Left leg wound 07/04, Enterococus + MSSA Resolved (4) Fall: Plan: She has extensive injuries for one reported fall > -defer to primary service to screen for abuse (5) Congestive heart failure: Plan: has had variable heart function over past year > transiently depressed EF 02/2021; now w/ R HF -caution w/ fluids --spironolactone, ARB, lasix on hold Admission and Anticipated Discharge Date Admission Date: July 26, 2021 Subjective Resting in bed, comfortable no other new symptoms Review of Systems Review of Systems: All systems reviewed & are unremarkable except as noted in Subjective Physical Exam Physical Exam: General- oriented x 3, not in distress, Face- (+) ecchymoses L lower face Lungs- clear breath sounds bilaterally, no rales/wheezes Heart- normal rate, regular rhythm; no murmurs Abdomen- normal bowel sounds, nondistended, soft, nontender Extremities- LUE: moderate edema, no warmth/tenderness/erythema LLE: open superfical wound, yellow discharge with mild erythema no pretibial edema, no calf tenderness Neuro- alert, oriented x 3; no gross focal neurologic deficits Results & Data ([facility]) Vital Signs (Past 12 Hours) Vital Signs Temp Pulse Resp BP Pulse Ox 07/30/21 16:04 37.2 C 07/30/21 16:00 37.4 C 107 H 11 L 82 L 07/30/21 15:45 37.4 C 96 H 15 146/83 H 91 07/30/21 14:00 37.5 C 109 H 14 92 07/30/21 12:26 37.2 C 108 H 18 146/101 H 93 07/30/21 12:00 37.1 C 109 H 13 92 07/30/21 11:00 36.9 C 106 H 19 95 07/30/21 10:00 36.7 C 105 H 19 147/87 H 92 07/30/21 09:56 36.8 C 102 H 12 133/83 95 07/30/21 09:00 36.8 C 109 H 12 93 07/30/21 08:43 36.9 C 114 H 16 158/93 H 93 07/30/21 08:00 36.6 C 99 H 15 91 07/30/21 07:00 36.5 C 98 H 52 H 90 Laboratory Results 07/30/21 05:00 07/30/21 05:00 (1) Fall Encounter type: initial encounter Qualified Code(s): W19.XXXA - Unspecified fall, initial encounter
[2021-07-30] MEDS: DIGOXIN 0.125 MG TAB PO SCH (19:20)
[2021-07-30] MEDS: LEVOTHYROXINE SODIUM 75 MCG TABLET PO SCH (21:43)
[2021-07-30] MEDS: MULTIVITAMIN TAB PO SCH (21:43)
[2021-07-31] MEDS: ACETAMINOPHEN 325 MG TAB PO SCH ×4 (03:49→20:45)
[2021-07-31] MEDS: traMADol HCL 50 MG TABLET PO PRN ×3 (03:49→23:41)
[2021-07-31 05:13] LABS: Basophils # (auto) 0.01 K/uL (0-0.2); Basophils % (auto) 0.2 %; Eosinophils % (auto) 1.9 %; Hemoglobin 8.9 g/dL (12.0-16.0); Immature Granulocytes # (auto) 0.02 K/uL (0.00-0.02); Immature Granulocytes % (auto) 0.4 %; Lymphocytes # (auto) 0.82 K/uL (1.2-3.4); Lymphocytes % (auto) 15.8 %; Mean Corpuscular Hemoglobin 30.5 pg (25-34); Mean Corpuscular Hgb Conc 30.7 g/dL (32-36); Mean Corpuscular Volume 99.3 fL (80-100); Mean Platelet Volume 9.6 fL (7.4-10.4); Monocytes # (auto) 0.89 K/uL (0.11-0.59); Monocytes % (auto) 17.1 %; Neutrophils # (auto) 3.36 K/uL (1.4-6.5); Neutrophils % (auto) 64.6 %; Platelet Count 156 K/uL (130-400); RDW Coefficient of Variation 18.3 % (11.5-14.5); RDW Standard Deviation 65.6 fL (36.4-46.3); Red Blood Count 2.92 M/uL (4.2-5.4)
[2021-07-31 05:36] LABS: BUN Creatinine Ratio 34.9 (10-20); Calcium 8.7 mg/dl (8.5-10.1); Creatinine Clr Calc Pharmacy 57.3 ml/min; Est GFR (African American) 98.9 ml/min; Est GFR (Non-African American) 85.3 ml/min; Potassium 4.6 mmol/L (3.5-5.1)
[2021-07-31] MEDS: ONDANSETRON INJ 2 MG/ML 2 ML VIAL IV PRN ×2 (05:50→08:05)
[2021-07-31] MEDS: INSULIN ASPART PER UNIT SC SCH ×4 (08:47→20:41)
[2021-07-31] MEDS: LIDOCAINE 5% 1 PATCH TD SCH (09:31)
[2021-07-31] MEDS ORDERED: METOPROLOL TARTRATE 1 MG/ML VIAL IV PRN (10:32)
--- NOTE | 2021-07-31 10:56 | Pharmacy Report ---
Pharmacy Glycemic Short Note 2 - Date of Service July 31, 2021 - Glycemic Short BSG Results (Last 24 hours): 07/30/21 07/30/21 07/30/21 12:11 15:53 21:31 Glucose POC Glucose 146 H 147 H 148 H 07/31/21 07/31/21 07/31/21 04:53 07:11 07:35 Glucose 119 H POC Glucose 134 H 128 H OUTPATIENT ANTIDIABETIC REGIMEN: * Per patient: * Lantus 13 units SC daily * Humalog 5-6 units SC TIDM * HbA1c: 11.6% (06/11/21) ASSESSMENT: 07/31: * Pt NPO again today pending swallow eval. BSGs yesterday of [phone]. Morning BSG today- 128mg/dL. * Received 10 units of basal and 8 units of prandial insulin yesterday. * Given NPO status, plan for an HS Lantus scale tonight. No change to Novolog parameters. 07/29 * BSGs yesterday of 211, 178, 167, and 146 mg/dL, fasting BSG of 134 mg/dL * Diet advancing from clears, 50 g CHO documented so far today and lunch BSG of 241 mg/dL * Will restart basal insulin and slightly tighen carb coverage based on prior admission data 07/28 * BSGs largely within goal range the last 24 hr. * Basal has been held d/t NPO status and encephalopathy to minimize lows. Diet is being titrated today to clear liquids. IVF containing dextrose have been discontinued. Received a total of 4 units of bolus insulin yesterday. * Novolog parameters tightened today given AM BSG in low 200s and initiation of diet. Plan to reassess basal in AM. 07/26 * CO is a 81 year old female with multiple rib fractures secondary to recent mechanical fall * BSG of 175 and 179 mg/dL so far since admission * Variable insulin needs based on prior admission data, will be conservative with initial insulin dosing * Also presents with CASH (SCr 1.87 vs. baseline SCr ~0.8) PLAN FOR INPATIENT GLYCEMIC CONTROL: * Basal insulin * 0/5/10 HS scale * Bolus insulin * NovoLog per scale ACHS or Q6hrs while NPO * Goal Range: Low 110 mg/dL - High 140 mg/dL * Correction Factor: 25 mg/dL/unit * Nutritional / Prandial insulin per carb ratio of 1 unit per 6 grams CHO c onsumed
[2021-07-31] MEDS ORDERED: Nursing to Pharmacy Communication SCH (14:00)
[2021-07-31] MEDS ORDERED: DIGOXIN 0.125 MG TAB PO SCH (16:00)
[2021-07-31] MEDS ORDERED: FUROSEMIDE 40 MG/4 ML VIAL IV ONE (16:30)
--- NOTE | 2021-07-31 19:08 | Hospitalist Progress Note ---
Date of Service July 31, 2021 Assessment & Plan (1) Sternal fracture: Plan: This is a 81-year-old female who has significant past history of insulin- dependent T2DM uncontrolled, PAF not anticoagulated on warfarin, history of sinus node dysfunction status post pacemaker placement in 2009, chronic HFpEF, peripheral neuropathy, hypothyroidism, HTN, HLD who presents to ED after experiencing chest pain and shortness of breath x1 week. Of significance patient sustained a fall approximately 1 week ago. Acute mildly displaced and angulated fracture of the mid sternal body with trace retrosternal hemorrhage. Anterior L 4th and 5th rib fracture Anterior chest wall pain elevated troponin Mechanical Fall 1 week ago admit to PCU ED provider discussed cased with trauma service at [facility], Dr. Clark, who stated no acute intervention required, conservative management at this time, if further sx evolve can reach out to trauma service at [facility], no transfer necessary pain management with ICE, lidocaine patch, scheduled APAP, prn IV morphine or PO oxy IR obtain echocardiogram cycle troponins ekg in a.m. PT/OT hold on cards consult for now incentive spirometry 07/31 (+)sternal pain improving Echo: no mention of contusion Tylenol PO q6h ordered PRN Tramadol NO narcotics Metabolic vs toxic encephalopathy likely Multifactorial from: Narcotics Acute Renal Failure Possible Lower Extremity Cellulitis, Infected wound, Left (Hx of Left leg wound 07/04, Enterococus + MSSA) - responded to Narcan - hold Narcotics management of ARF per below - Wound Culture ordered Blood culture: negative so far Urine culture: Vivienne - Zosyn discontinued for now - leg erythema improving back to baseline CASH Anion gap metabolic acidosis baseline cr 0.6-0.7 pt with poor po intake hold losartan, lasix and aldactone 07/29 crea 0.63 HCO3 27 HCO3 drip discontinued Nephro consulted Closed head injury L facial ecchymosis and L frontal scalp hematoma pt c/o headache, dizziness repeat CT head: No significant change compared to the prior study. No acute intracranial abnormality. improving B/L Lower ext venous stasis Possible lower extremity cellulitis Diabetic ulcer to L leg consult wound care IV Zosyn discontinued per ICU team, does not seem to be cellulitis Wound culture: pending Blood culture: negative so far seems to be improving off antibiotics Chronic HFpEF HTN on losartan, metoprolol, lasix and aldactone as outpt Lasix 40mg IV today resume losartan, lasix and aldactone daily weights, strict I and O Uncontrolled insulin dependent T2DM Lantus/novolog per protocol a1c 10.7 07/05/21 consult glycemic pharmacy due to reduced intake Afib hx of TBS s/p PPM 2009 interrogate pacer continue metoprolol and digoxin not on OAC 2/2 to hx of SAH possible Myocardial infarction type 2 no chest pain Chronic anemia baseline hgb 9-10 hgb 9.3 --> 8.9 monitor closely DVT ppx: SCD/TEDS for now, no chemical prophylaxis in setting of recent trauma, trace retrosternal hemorrhage and hx of SAH Dispo: PCU, pt likely to need acute inpt rehab FULL CODE PCP: Gege Fontenot Admission and Anticipated Discharge Date Admission Date: July 26, 2021 Subjective ff up for sternal fracture, etc seen resting in bedside chair comfortable, not in distress sternal and rib fracture pain improving gradually relieved by Tramadol and Tylenol no dyspnea, dizziness, palpitations no other symptoms Review of Systems Review of Systems: all noted and negative except for above Physical Exam Physical Exam: General- oriented x 3, not in distress, speaks in sentences with no effort or accessory muscle use Eyes- anicteric Neck- no JVD Lungs- mild rales at the bases, no wheezing Heart- mild tachycardia, irregularly irregular rhythm; no murmurs Abdomen- normal bowel sounds, nondistended, soft, nontender Extremities- (+) lower leg edema- grade 1, no calf tenderness Neuro- alert, oriented x 3; no gross focal neurologic deficits Skin- warm & dry Results & Data Results & Data ([facility]) Vital Signs (Past 12 Hours) Vital Signs Temp Pulse Pulse Resp BP BP BP 07/31/21 16:00 37.6 C H 126 H 18 07/31/21 15:43 37.2 C 105 H 28 H 124/79 07/31/21 15:09 37.6 C H 109 H 28 H 124/79 07/31/21 14:00 37.6 C H 94 H 24 07/31/21 12:23 37.4 C 117 H 18 126/87 07/31/21 12:00 37.4 C 103 H 112 H 28 H 126/87 07/31/21 11:21 37.4 C 150 H 26 H 153/105 H 07/31/21 11:19 131 H 135/105 H 07/31/21 10:00 35.8 C L 109 H 19 07/31/21 08:40 37.3 C 110 H 24 145/90 H 07/31/21 08:00 37.3 C 120 H 13 07/31/21 07:27 37.3 C 107 H 13 145/90 H 07/31/21 07:22 37.2 C 111 H 15 143/87 H Pulse Ox 07/31/21 16:00 91 07/31/21 15:43 98 07/31/21 15:09 98 07/31/21 14:00 97 07/31/21 12:23 95 07/31/21 12:00 98 07/31/21 11:21 98 07/31/21 11:19 07/31/21 10:00 07/31/21 08:40 90 07/31/21 08:00 93 07/31/21 07:27 95 07/31/21 07:22 92 (1) Sternal fracture Encounter type: initial encounter Fracture type: closed Sternal location: body of sternum Qualified Code(s): S22.22XA - Fracture of body of sternum, initial encounter for closed fracture
[2021-07-31] MEDS: INSULIN GLARGINE SOLOSTAR 100 UNITS/ML 3 ML PEN SC SCH (20:42)
[2021-07-31] MEDS: SPIRONOLACTONE 12.5 MG TAB PO SCH (20:44)
[2021-07-31] MEDS: MULTIVITAMIN TAB PO SCH (20:48)
[2021-07-31] MEDS: LEVOTHYROXINE SODIUM 75 MCG TABLET PO SCH (20:48)
[2021-07-31] MEDS: METOPROLOL SUCC 50MG EXT REL TAB PO SCH (20:57)
[2021-07-31] MEDS ORDERED: INSULIN GLARGINE SOLOSTAR 100 UNITS/ML 3 ML PEN SC SCH (21:00)
[2021-08-01] MEDS: ACETAMINOPHEN 325 MG TAB PO SCH ×4 (06:19→21:18)
[2021-08-01 07:21] LABS: Basophils # (auto) 0.03 K/uL (0-0.2); Basophils % (auto) 0.5 %; Eosinophils # (auto) 0.14 K/uL (0-0.5); Eosinophils % (auto) 2.5 %; Lymphocytes # (auto) 1.27 K/uL (1.2-3.4); Lymphocytes % (auto) 22.3 %; Mean Corpuscular Hemoglobin 30.9 pg (25-34); Mean Corpuscular Volume 99.7 fL (80-100); Mean Platelet Volume 10.5 fL (7.4-10.4); Monocytes # (auto) 0.41 K/uL (0.11-0.59); Monocytes % (auto) 7.2 %; Neutrophils # (auto) 3.85 K/uL (1.4-6.5); Neutrophils % (auto) 67.5 %; Platelet Count 164 K/uL (130-400); RDW Coefficient of Variation 17.9 % (11.5-14.5); RDW Standard Deviation 65.2 fL (36.4-46.3); Red Blood Count 2.91 M/uL (4.2-5.4)
[2021-08-01 07:51] LABS: Calcium 8.9 mg/dl (8.5-10.1); Est GFR (African American) 76.6 ml/min; Est GFR (Non-African American) 66.1 ml/min; Potassium 4.4 mmol/L (3.5-5.1)
[2021-08-01] MEDS: LIDOCAINE 5% 1 PATCH TD SCH (08:03)
[2021-08-01] MEDS: METOPROLOL SUCC 50MG EXT REL TAB PO SCH ×2 (08:03→21:19)
[2021-08-01] MEDS: INSULIN ASPART PER UNIT SC SCH ×4 (08:09→21:19)
[2021-08-01] MEDS: traMADol HCL 50 MG TABLET PO PRN ×2 (09:12→16:50)
--- NOTE | 2021-08-01 10:51 | Pharmacy Report ---
Pharmacy Glycemic Short Note 2 - Date of Service August 01, 2021 - Glycemic Short BSG Results (Last 24 hours): 07/31/21 07/31/21 07/31/21 11:26 16:11 16:51 Glucose POC Glucose 130 H 159 H 150 H 07/31/21 08/01/21 08/01/21 20:02 06:53 07:28 Glucose 97 POC Glucose 158 H 116 H OUTPATIENT ANTIDIABETIC REGIMEN: * Per patient: * Lantus 13 units SC daily * Humalog 5-6 units SC TIDM * HbA1c: 11.6% (06/11/21) ASSESSMENT: 08/01: * BSGs within goal the last 24h, 130-159-158, fasting this AM -116mg/dL. * Patient received 10 units of basal last night and 8 units of Novolog. Now tolerating diet. Other stressors stable * No change to insulin regimen 07/31: * Pt NPO again today pending swallow eval. BSGs yesterday of [phone]. Morning BSG today- 128mg/dL. * Received 10 units of basal and 8 units of prandial insulin yesterday. * Given NPO status, plan for an HS Lantus scale tonight. No change to Novolog parameters. 07/29 * BSGs yesterday of 211, 178, 167, and 146 mg/dL, fasting BSG of 134 mg/dL * Diet advancing from clears, 50 g CHO documented so far today and lunch BSG of 241 mg/dL * Will restart basal insulin and slightly tighen carb coverage based on prior admission data 07/28 * BSGs largely within goal range the last 24 hr. * Basal has been held d/t NPO status and encephalopathy to minimize lows. Diet is being titrated today to clear liquids. IVF containing dextrose have been d iscontinued. Received a total of 4 units of bolus insulin yesterday. * Novolog parameters tightened today given AM BSG in low 200s and initiation of diet. Plan to reassess basal in AM. 07/26 * CO is a 81 year old female with multiple rib fractures secondary to recent mechanical fall * BSG of 175 and 179 mg/dL so far since admission * Variable insulin needs based on prior admission data, will be conservative with initial insulin dosing * Also presents with CASH (SCr 1.87 vs. baseline SCr ~0.8) PLAN FOR INPATIENT GLYCEMIC CONTROL: * Basal insulin * Lantus 10 units HS * Bolus insulin * NovoLog per scale ACHS or Q6hrs while NPO * Goal Range: Low 110 mg/dL - High 140 mg/dL * Correction Factor: 25 mg/dL/unit * Nutritional / Prandial insulin per carb ratio of 1 unit per 6 grams CHO consumed
--- NOTE | 2021-08-01 12:26 | Pain Management Consultation ---
Date of Consultation August 01, 2021 Assessment & Plan (1) Chest pain: Chest pain type: unspecified Qualified Code(s): R07.9 - Chest pa in, unspecified (2) Sternal fracture: Encounter type: initial encounter Fracture type: closed Sternal location: body of sternum Qualified Code(s): S22.22XA - Fracture of body of sternum, initial encounter for closed fracture (3) Multiple rib fractures: (4) CHI (closed head injury): Encounter type: initial encounter Qualified Code(s): S09.90XA - Unspecified injury of head, initial encounter (5) Fall: Encounter type: initial encounter Qualified Code(s): W19.XXXA - Unspecified fall, initial encounter Patient is pleased with her current medication regimen. No changes were made. Continue Tramadol 50mg x 6 hours and Lidocaine patch. Thank you for the consult. Please contact with any questions or concerns. History of Present Illness Attending Physician: Chris Lawson MD History of Present Illness This is a 81 year old female that has been admitted with chest pain and SOB after a fall about 2 weeks ago. She slipped while using her walker and sustained a mildly displaced and angulated sternal fracture as well as a left 4th and 5th rib fracture. She has been receiving Lidocaine patch as well as Tramadol 50mg x 6 hours which has been adequately controlling her pain. She rates her pain at a 3/10 currently. She is denies any side effects to the Medication. No constipation, drowsiness, confusion. Case discussed with Dr. María Kim Pain Assessment Full Body Front + Back: 1. Allergies Allergy/AdvReac Type Severity Reaction Status Date / Time citalopram Allergy Unknown Unknown Verified 07/26/21 07:19 paroxetine Allergy Unknown Unknown Verified 07/26/21 07:19 Sulfa (Sulfonamide Allergy Unknown TOLERATES Verified 07/26/21 07:19 Antibiotics) LASIX venom-wasp protein Allergy Unknown HIVES Verified 07/26/21 07:19 celecoxib AdvReac Mild N/V Verified 07/26/21 07:19 Home Medications Medication Instructions Recorded Confirmed Type atorvastatin 40 mg tablet 40 mg PO HS 12/13/20 07/26/21 History levothyroxine 75 mcg tablet 75 mcg PO HS 12/13/20 07/26/21 History losartan 50 mg tablet 50 mg PO HS 12/13/20 07/26/21 History magnesium oxide 400 mg PO HS 12/13/20 07/26/21 History rizatriptan 5 mg tablet 5 mg PO DIRECTED PRN 12/13/20 07/26/21 History spironolactone 25 mg tablet 12.5 mg PO HS 12/13/20 07/26/21 History allopurinol 300 mg tablet 300 mg PO HS 03/05/21 07/26/21 History cholecalciferol (vitamin D3) 25 25 mcg PO HS 03/05/21 07/26/21 History mcg (1,000 unit) tablet digoxin 125 mcg (0.125 mg) tablet 125 mcg PO DAILY@199903/05/21 07/26/21 History epinephrine 0.3 mg/0.3 mL 0.3 mg IM Q4H PRN 03/05/21 07/26/21 History injection, auto-injector gabapentin 300 mg capsule 300 mg PO HS 03/05/21 07/26/21 History hydrocodone 5 mg-acetaminophen 325 1 tab PO Q6 PRN 03/05/21 07/26/21 History mg tablet metoprolol succinate 200 mg 200 mg PO BID 06/11/21 07/26/21 History tablet,extended release 24 hr vitamins A,C,H-rvad-fmdmba 14,320 1 cap PO HS 06/11/21 07/26/21 History unit-226 mg-200 unit capsule (PreserVision AREDS) insulin lispro 100 unit/mL 1 unit SUBCUT UD #0 ml 06/16/21 07/26/21 Rx subcutaneous pen (Humalog KwikPen (U-100) Insulin) insulin glargine 100 unit/mL (3 13 unit SUBCUT QAM ml 06/30/21 07/26/21 History mL) subcutaneous pen (Lantus Solostar U-100 Insulin) furosemide 40 mg tablet 20 mg PO DAILY 07/20/21 07/26/21 History Patient History Medical History Afib Cerebral hemorrhage "2009 left hemiparesis" Chronic anemia Chronic combined systolic and diastolic CHF (congestive heart failure) Diabetes mellitus, type II Frequent falls hx of subarachnoid hemorrhage 2009, large retroperitoneal bleed 2014 walker dependent Gout Hematoma of rectus sheath 2015 Hemiplegia History of - cerebrovascular accident HLD (hyperlipidemia) HTN (hypertension) Hypothyroidism Pacemaker Presence of IVC filter Tachy-jodi syndrome Surgical History Status post appendectomy Status post cardiac pacemaker procedure Status post cataract extraction Status post cholecystectomy Status post hysterectomy Status post insertion of inferior vena caval filter Family History Daughter Breast cancer Mother Cancer pancreatic Father Heart disease Social History Smoking Status: Never smoker Second Hand Exposure: No; Hx Alcohol Use: No Hx Substance Use: No Preferred Language: Polish Communication Ability: Effective Campaign Associate Required: No Beliefs That Will Affect Care: None marital status: Current Living Situation: Spouse Current Living Situation Comment: patient lives at home with , who is her primary caregiver Other Information That Helps Us Care for You: No Feels Safe at Home: Yes Safety Concerns: Feels Safe At This Time Assistive Devices: Walker Physical Exam Physical Exam: GENERAL: This is a 81 year old female that does not appear in any acute distress. HEAD/FACE: + left forehead hematoma. EYES: No drainage or conjunctival injection. ENT: Nose without bleeding or discharge. Oral mucosa moist. NECK: Full ROM without apparent pain. No swelling or masses noted. RESPIRATORY: Patient with unlabored breathing. No signs of respiratory distress. CHEST/AXILLA: Chest movement symmetrical. Lidocaine patch on the center/left chest. SKIN: Multiple areas of ecchymosis. MS/EXTREMITY: + edema of lower extremities. Moving extremities appropriately. NEURO: Alert and appears oriented. Speech is fluent. Cranial Nerves are grossly intact. PSYCH: Alert, pleasant, affect is calm
[2021-08-01] MEDS: DIGOXIN 0.125 MG TAB PO SCH (12:43)
[2021-08-01] MEDS ORDERED: FUROSEMIDE 40 MG/4 ML VIAL IV ONE (16:43)
--- NOTE | 2021-08-01 16:54 | Hospitalist Progress Note ---
Date of Service August 01, 2021 Assessment & Plan (1) Sternal fracture: Plan: This is a 81-year-old female who has significant past history of insulin- dependent T2DM uncontrolled, PAF not anticoagulated on warfarin, history of sinus node dysfunction status post pacemaker placement in 2009, chronic HFpEF, peripheral neuropathy, hypothyroidism, HTN, HLD who presents to ED after experiencing chest pain and shortness of breath x1 week. Of significance patient sustained a fall approximately 1 week ago. Acute mildly displaced and angulated fracture of the mid sternal body with trace retrosternal hemorrhage. Anterior L 4th and 5th rib fracture Anterior chest wall pain elevated troponin Mechanical Fall 1 week ago ED provider discussed [place] [facility] [place], who stated no acute intervention required, conservative management at this time, if further sx evolve can reach out to trauma service at [facility], no transfer necessary pain management with ICE, lidocaine patch, scheduled APAP, prn IV morphine or PO oxy IR 08/01 (+)sternal and rib pain improving Echo: no mention of contusion Tylenol PO q6h ordered PRN Tramadol NO narcotics due to high risk for encephalopathy Pain management consulted, continue present pain regimen Continue incentive spirometry PT recommending SNF Metabolic vs toxic encephalopathy, resolved likely Multifactorial from: Narcotics Acute Renal Failure Possible Lower Extremity Cellulitis, Infected wound, Left (Hx of Left leg wound 07/04, Enterococus + MSSA) -back to baseline -Admitted to ICU - responded to Narcan - hold Narcotics management of ARF per below - Wound Culture ordered Blood culture: negative Urine culture: Vivienne, likely colonization - Zosyn discontinued - leg erythema improving of antibiotics CASH Anion gap metabolic acidosis baseline cr 0.6-0.7 Likely from prerenal, poor oral intake Given bicarb drip, nephrology consulted 08/01 Back to baseline crea 0. 0.84 HCO3 27 Closed head injury L facial ecchymosis and L frontal scalp hematoma pt c/o headache, dizziness repeat CT head: No significant change compared to the prior study. No acute intracranial abnormality. improving B/L Lower ext venous stasis Possible lower extremity cellulitis Diabetic ulcer to L leg consult wound care IV Zosyn discontinued per ICU team, does not seem to be cellulitis Wound culture:Not collected Blood culture: negative so far improving off antibiotics Chronic HFpEF HTN on losartan, metoprolol, lasix and aldactone as outpt, initially held due to acute renal failure 07/31 resumed losartan, lasix and aldactone Additional Lasix 40mg IV today Monitor closely Uncontrolled insulin dependent T2DM Lantus/novolog per protocol a1c 10.7 07/05/21 consult glycemic pharmacy due to reduced intake Afib hx of TBS s/p PPM 2009 Initially digoxin reduced to every 2 days, metoprolol held A. fib RVR noted for - Digoxin daily resumed, repeat level 08/04 Usually on metoprolol succinate 200 mg twice daily, slowly restarted at 50 mg twice a day Currently heart rate control not on OAC 2/2 to hx of SAH possible Myocardial infarction type 2 Elevated troponin no chest pain Chronic anemia baseline hgb 9-10 Remained at baseline around 9 monitor closely DVT ppx: SCD/TEDS for now, no chemical prophylaxis in setting of recent trauma, trace retrosternal hemorrhage and hx of SAH Dispo: PT OT recommending discharge to SNF FULL CODE PCP: Gege Fontenot Admission and Anticipated Discharge Date Admission Date: July 26, 2021 Subjective ff up for sternal fracture, etc. Seen sleeping but easily awakened Smiling, comfortable, in good spirits States sternal and rib fracture pain gradually improving, still significant but relieved by pain medications No shortness of breath, chest pain, palpitations, dizziness Appetite is okay No other symptom Review of Systems Review of Systems: all noted and negative except for above Physical Exam Physical Exam: General- oriented x 3, not in distress, speaks in sentences with no effort or accessory muscle use Face-ecchymosis on the left lower half of the face, improving Eyes- anicteric Neck- no JVD Lungs-mild rales at the bases, no wheezing Heart- normal rate, irregularly irregular rhythm; no murmurs Abdomen- normal bowel sounds, nondistended, soft, nontender Extremities-grade 1 lower extremity edema, no calf tenderness Left lower extremity wound: Slowly healing Neuro- alert, oriented x 3; no gross focal neurologic deficits Skin- warm & dry Results & Data Results & Data ([facility]) Vital Signs (Past 12 Hours) Vital Signs Temp Pulse Pulse Resp BP BP Pulse Ox 08/01/21 14:51 36.6 C 87 19 127/93 95 08/01/21 12:43 81 08/01/21 11:28 36.9 C 94 H 22 146/87 H 93 08/01/21 07:30 37.3 C 97 H 18 137/82 93 all noted and reviewed including below (1) Sternal fracture Encounter type: initial encounter Fracture type: closed Sternal location: body of sternum Qualified Code(s): S22.22XA - Fracture of body of sternum, initial encounter for closed fracture
[2021-08-01] MEDS: INSULIN GLARGINE SOLOSTAR 100 UNITS/ML 3 ML PEN SC SCH (21:17)
[2021-08-01] MEDS: SPIRONOLACTONE 12.5 MG TAB PO SCH (21:22)
[2021-08-01] MEDS: LEVOTHYROXINE SODIUM 75 MCG TABLET PO SCH (21:22)
[2021-08-01] MEDS: MULTIVITAMIN TAB PO SCH (21:22)
[2021-08-02] MEDS: ACETAMINOPHEN 325 MG TAB PO SCH ×4 (03:27→21:32)
[2021-08-02 08:07] LABS: Basophils # (auto) 0.02 K/uL (0-0.2); Basophils % (auto) 0.3 %; Eosinophils % (auto) 3.3 %; Hematocrit (blood only) 31.6 % (37-47); Hemoglobin 9.8 g/dL (12.0-16.0); Immature Granulocytes # (auto) 0.01 K/uL (0.00-0.02); Immature Granulocytes % (auto) 0.2 %; Lymphocytes # (auto) 0.84 K/uL (1.2-3.4); Mean Corpuscular Hemoglobin 30.7 pg (25-34); Mean Corpuscular Volume 99.1 fL (80-100); Mean Platelet Volume 10.9 fL (7.4-10.4); Monocytes # (auto) 0.78 K/uL (0.11-0.59); Neutrophils # (auto) 4.16 K/uL (1.4-6.5); Neutrophils % (auto) 69.2 %; Platelet Count 158 K/uL (130-400); RDW Coefficient of Variation 17.8 % (11.5-14.5); RDW Standard Deviation 63.1 fL (36.4-46.3); Red Blood Count 3.19 M/uL (4.2-5.4); White Blood Count 6.01 K/uL (4.8-10.8)
[2021-08-02] MEDS: FUROSEMIDE 20 MG TAB PO SCH (08:26)
[2021-08-02] MEDS: traMADol HCL 50 MG TABLET PO PRN ×2 (08:26→16:33)
[2021-08-02] MEDS: INSULIN ASPART PER UNIT SC SCH ×4 (08:27→21:31)
[2021-08-02] MEDS: METOPROLOL SUCC 50MG EXT REL TAB PO SCH ×2 (08:29→19:57)
[2021-08-02 08:31] LABS: BUN Creatinine Ratio 37.8 (10-20); Calcium 8.8 mg/dl (8.5-10.1); Creatinine Clr Calc Pharmacy 48.8 ml/min; Est GFR (African American) 89.3 ml/min; Est GFR (Non-African American) 77.1 ml/min; Potassium 4.5 mmol/L (3.5-5.1)
[2021-08-02] MEDS: LIDOCAINE 5% 1 PATCH TD SCH (08:35)
--- NOTE | 2021-08-02 10:50 | Pharmacy Report ---
Pharmacy Glycemic Sign Off Nt - Date of Service August 02, 2021 - Assessment & Plan ASSESSMENT: * pharmacy consulted for glycemic management * BSG's have ranged 107-159 mg/dL over the last 48 hours with no changes to the glycemic regimen since 07/30 * Stressors stable * Dr. Leggett aware that pharmacy is signing off PLAN FOR INPATIENT GLYCEMIC CONTROL: No changes needed to current regimen. * Continue basal insulin with Lantus 10 units SQ HS * Continue NovoLog per scale ACHS/Q6hrs while NPO * Goal range = 110 140 mg/dl * CF = 26 mg/dl/unit * CR = 1 unit for ever 6 g CHO consumed * Pharmacy is signing off of glycemic consult and will no longer be making adjustments to inpatient regimen. Please feel free to re-consult if needed. Thank you.
[2021-08-02] MEDS: DIGOXIN 0.125 MG TAB PO SCH (14:02)
--- NOTE | 2021-08-02 18:43 | Hospitalist Progress Note ---
Date of Service August 02, 2021 Assessment & Plan (1) Sternal fracture: Plan: Per Dr. Delcid note with addendum: This is a 81-year-old female who has significant past history of insulin- dependent T2DM uncontrolled, PAF not anticoagulated on warfarin, history of si nus node dysfunction status post pacemaker placement in 2009, chronic HFpEF, peripheral neuropathy, hypothyroidism, HTN, HLD who presents to ED after experiencing chest pain and shortness of breath x1 week. Of significance patient sustained a fall approximately 1 week ago. Acute mildly displaced and angulated fracture of the mid sternal body with trace retrosternal hemorrhage. Anterior L 4th and 5th rib fracture Anterior chest wall pain elevated troponin Mechanical Fall 1 week ago ED provider discussed cased with [place] [facility] [place], who stated no acute intervention required, conservative management at this time, if further sx evolve can reach out to trauma service at [facility], no transfer necessary pain management with ICE, lidocaine patch, scheduled APAP, prn IV morphine or PO oxy IR 08/01 (+)sternal and rib pain improving Echo: no mention of contusion Tylenol PO q6h ordered PRN Tramadol NO narcotics due to high risk for encephalopathy Pain management consulted, continue present pain regimen Continue incentive spirometry PT recommending SNF 08/02: Pt reports pain under control, doing better. Metabolic vs toxic encephalopathy, resolved likely Multifactorial from: Narcotics Acute Renal Failure Possible Lower Extremity Cellulitis, Infected wound, Left (Hx of Left leg wound 07/04, Enterococus + MSSA) -back to baseline -Admitted to ICU - responded to Narcan - hold Narcotics management of ARF per below - Wound Culture ordered Blood culture: negative Urine culture: Vivienne, likely colonization - Zosyn discontinued - leg erythema improving of antibiotics 08/02: AOx3, resolved CASH Anion gap metabolic acidosis baseline cr 0.6-0.7 Likely from prerenal, poor oral intake Given bicarb drip, nephrology consulted 08/01 Back to baseline crea 0. 0.84 HCO3 27 08/02: resolved Closed head injury L facial ecchymosis and L frontal scalp hematoma - improving pt c/o headache, dizziness repeat CT head: No significant change compared to the prior study. No acute intracranial abnormality. B/L Lower ext venous stasis Possible lower extremity cellulitis Diabetic ulcer to L leg consult wound care IV Zosyn discontinued per ICU team, does not seem to be cellulitis Wound culture:Not collected Blood culture: negative so far improving off antibiotics Chronic HFpEF HTN on losartan, metoprolol, lasix and aldactone as outpt, initially held due to acute renal failure 07/31 resumed losartan, lasix and aldactone Additional Lasix 40mg IV today Monitor closely Uncontrolled insulin dependent T2DM Lantus/novolog per protocol a1c 10.7 07/05/21 consult glycemic pharmacy due to reduced intake Afib hx of TBS s/p PPM 2009 Initially digoxin reduced to every 2 days, metoprolol held A. fib RVR noted for - Digoxin daily resumed, repeat level 08/04 Usually on metoprolol succinate 200 mg twice daily, slowly restarted at 50 mg twice a day Currently heart rate control not on OAC 2/2 to hx of SAH possible Myocardial infarction type 2 Elevated troponin no chest pain Chronic anemia baseline hgb 9-10 Remained at baseline around 9 monitor closely DVT ppx: SCD/TEDS for now, no chemical prophylaxis in setting of recent trauma, trace retrosternal hemorrhage and hx of SAH Dispo: PT OT recommending discharge to SNF; medically stable for DC. FULL CODE PCP: Gege Fontenot Admission and Anticipated Discharge Date Admission Date: July 26, 2021 Subjective Patient seen and examined at bedside as a follow-up of sternal fracture and left fourth and fifth rib fracture. Patient was lying in bed, on room air, NAD, no new acute events overnight. Patient reports pain under control. Patient denies fever/headache/chills/chest pain/palpitations/belly pain/other review of symptoms. Per RN patient is doing great, eating better. Physical Exam Physical Exam: GENERAL: Alert and oriented x3. NAD, on RA. HEENT: No pallor, no icterus. Pupils equal, round and reactive to light. Oral mucosa moist. Lt forehead lump noted, left cheek bruise noted NECK: No JVD, no neck masses. HEART: S1 and S2 heard. Regular rate and rhythm. No murmur, no gallop. RESPIRATORY SYSTEM: Normal AP diameter. No accessory muscle use. No wheezing, no crackles. ABDOMEN: Soft, bowel sounds present, nontender, no distention. CENTRAL NERVOUS SYSTEM: No facial droop. Speech is clear. Obeys simple commands. Moves extremities. EXTREMITIES: trace BLE edema, BLE chronic skin changes noted. Results & Data Results & Data ([facility]) Vital Signs (Past 12 Hours) Vital Signs Temp Pulse Pulse Resp BP BP Pulse Ox 08/02/21 16:05 36.7 C 85 17 134/88 98 08/02/21 15:00 78 08/02/21 14:02 91 H 08/02/21 10:46 36.7 C 83 16 117/78 94 08/02/21 08:00 91 H 08/02/21 07:18 36.7 C 93 H 25 H 132/85 95 (1) Sternal fracture Encounter type: initial encounter Fracture type: closed Sternal location: body of sternum Qualified Code(s): S22.22XA - Fracture of body of sternum, initial encounter for closed fracture
[2021-08-02] MEDS: MULTIVITAMIN TAB PO SCH (19:56)
[2021-08-02] MEDS: LEVOTHYROXINE SODIUM 75 MCG TABLET PO SCH (19:57)
[2021-08-02] MEDS: SPIRONOLACTONE 12.5 MG TAB PO SCH (19:58)
[2021-08-02] MEDS: allopurinoL 100 MG TAB PO SCH (19:58)
[2021-08-02] MEDS: ATORVASTATIN 40 MG TAB PO SCH (19:59)
[2021-08-02] MEDS: INSULIN GLARGINE SOLOSTAR 100 UNITS/ML 3 ML PEN SC SCH (21:32)
[2021-08-03] MEDS: ACETAMINOPHEN 325 MG TAB PO SCH ×4 (03:36→22:34)
[2021-08-03] MEDS: traMADol HCL 50 MG TABLET PO PRN ×2 (05:53→11:58)
[2021-08-03] MEDS: LIDOCAINE 5% 1 PATCH TD SCH (05:55)
[2021-08-03 06:48] LABS: Basophils # (auto) 0.02 K/uL (0-0.2); Basophils % (auto) 0.3 %; Eosinophils # (auto) 0.19 K/uL (0-0.5); Eosinophils % (auto) 3.2 %; Hematocrit (blood only) 29.1 % (37-47); Hemoglobin 9.1 g/dL (12.0-16.0); Immature Granulocytes # (auto) 0.01 K/uL (0.00-0.02); Immature Granulocytes % (auto) 0.2 %; Lymphocytes % (auto) 13.3 %; Mean Corpuscular Hemoglobin 30.6 pg (25-34); Mean Corpuscular Hgb Conc 31.3 g/dL (32-36); Mean Platelet Volume 10.4 fL (7.4-10.4); Monocytes # (auto) 0.73 K/uL (0.11-0.59); Monocytes % (auto) 12.1 %; Neutrophils # (auto) 4.27 K/uL (1.4-6.5); Neutrophils % (auto) 70.9 %; Platelet Count 157 K/uL (130-400); RDW Coefficient of Variation 17.2 % (11.5-14.5); RDW Standard Deviation 61.3 fL (36.4-46.3); Red Blood Count 2.97 M/uL (4.2-5.4); White Blood Count 6.02 K/uL (4.8-10.8)
[2021-08-03 07:01] LABS: BUN Creatinine Ratio 41.5 (10-20); Calcium 8.7 mg/dl (8.5-10.1); Creatinine Clr Calc Pharmacy 55.5 ml/min; Est GFR (African American) 97.9 ml/min; Est GFR (Non-African American) 84.4 ml/min; Potassium 4.6 mmol/L (3.5-5.1)
[2021-08-03] MEDS: INSULIN ASPART PER UNIT SC SCH ×4 (08:01→22:22)
[2021-08-03] MEDS: FUROSEMIDE 20 MG TAB PO SCH (08:08)
[2021-08-03] MEDS: METOPROLOL SUCC 50MG EXT REL TAB PO SCH ×2 (08:46→22:32)
[2021-08-03] MEDS: DIGOXIN 0.125 MG TAB PO SCH (14:51)
--- NOTE | 2021-08-03 17:06 | Hospitalist Progress Note ---
Date of Service August 03, 2021 Assessment & Plan (1) Sternal fracture: Plan: Per Dr. Delcid note with addendum: This is a 81-year-old female who has significant past history of insulin- dependent T2DM uncontrolled, PAF not anticoagulated on warfarin, history of si nus node dysfunction status post pacemaker placement in 2009, chronic HFpEF, peripheral neuropathy, hypothyroidism, HTN, HLD who presents to ED after experiencing chest pain and shortness of breath x1 week. Of significance patient sustained a fall approximately 1 week ago. Acute mildly displaced and angulated fracture of the mid sternal body with trace retrosternal hemorrhage. Anterior L 4th and 5th rib fracture Anterior chest wall pain elevated troponin Mechanical Fall 1 week ago ED provider discussed cased [place] [facility] [place], who stated no acute intervention required, conservative management at this time, if further sx evolve can reach out to trauma service at [facility], no transfer necessary pain management with ICE, lidocaine patch, scheduled APAP, prn IV morphine or PO oxy IR 08/01 (+)sternal and rib pain improving Echo: no mention of contusion Tylenol PO q6h ordered PRN Tramadol NO narcotics due to high risk for encephalopathy Pain management consulted, continue present pain regimen Continue incentive spirometry PT recommending SNF 08/03: Pt reports pain under control, doing better. Metabolic vs toxic encephalopathy, resolved likely Multifactorial from: Narcotics Acute Renal Failure Possible Lower Extremity Cellulitis, Infected wound, Left (Hx of Left leg wound 07/04, Enterococus + MSSA) -back to baseline -Admitted to ICU - responded to Narcan - hold Narcotics management of ARF per below - Wound Culture ordered Blood culture: negative Urine culture: Vivienne, likely colonization - Zosyn discontinued - leg erythema improving of antibiotics 08/03: AOx3, resolved CASH Anion gap metabolic acidosis baseline cr 0.6-0.7 Likely from prerenal, poor oral intake Resolved. Closed head injury L facial ecchymosis and L frontal scalp hematoma - improving repeat CT head: No significant change compared to the prior study. No acute intracranial abnormality. 08/03 -->Pt denies headache. B/L Lower ext venous stasis Possible lower extremity cellulitis Diabetic ulcer to L leg consult wound care IV Zosyn discontinued per ICU team, does not seem to be cellulitis Wound culture:Not collected Blood culture: negative so far improving off antibiotics #. Other chronic medical conditions: Chronic HFpEF, HTN, uncontrolled T2DM, A. fib, history of TBS status post PPM 2009 Continue/resume home meds as and when appropriate. Lantus/NovoLog per protocol. Usually on metoprolol succinate 200 mg twice daily, slowly restarted at 50 mg twice a day-->100 mg twice a day. not on OAC 2/2 to hx of SAH possible Myocardial infarction type 2 Elevated troponin no chest pain Chronic anemia baseline hgb 9-10 Remained at baseline around 9 monitor closely DVT ppx: SCD/TEDS for now, no chemical prophylaxis in setting of recent trauma, trace retrosternal hemorrhage and hx of SAH Dispo: PT OT recommending discharge to SNF; medically stable for DC. FULL CODE PCP: Gege Fontenot Admission and Anticipated Discharge Date Admission Date: July 26, 2021 Subjective Patient seen and examined at bedside as a follow-up of sternal fracture and left fourth and fifth rib fracture. Patient was lying in bed, on room air, NAD, no new acute events overnight. Patient reports pain under control. Patient denies fever/headache/chills/chest pain/palpitations/belly pain/other review of symptoms. Per RN patient is doing great, eating good. Physical Exam Physical Exam: GENERAL: Alert and oriented x3. NAD, on RA. HEENT: No pallor, no icterus. Pupils equal, round and reactive to light. Oral mucosa moist. Lt forehead lump noted, left cheek bruise noted--> stable/improving NECK: No JVD, no neck masses. HEART: S1 and S2 heard. Regular rate and rhythm. No murmur, no gallop. RESPIRATORY SYSTEM: Normal AP diameter. No accessory muscle use. No wheezing, no crackles. ABDOMEN: Soft, bowel sounds present, nontender, no distention. CENTRAL NERVOUS SYSTEM: No facial droop. Speech is clear. Obeys simple commands. Moves extremities. EXTREMITIES: trace BLE edema, BLE chronic skin changes noted. Results & Data Results & Data ([facility]) Vital Signs (Past 12 Hours) Vital Signs Temp Pulse Resp BP Pulse Ox 08/03/21 15:19 36.7 C 78 18 128/75 96 08/03/21 11:00 36.4 C L 86 15 132/81 08/03/21 07:08 36.5 C 90 19 144/84 H (1) Sternal fracture Encounter type: initial encounter Fracture type: closed Sternal location: body of sternum Qualified Code(s): S22.22XA - Fracture of body of sternum, initial encounter for closed fracture
[2021-08-03] MEDS: allopurinoL 100 MG TAB PO SCH (22:32)
[2021-08-03] MEDS: ATORVASTATIN 40 MG TAB PO SCH (22:33)
[2021-08-03] MEDS: INSULIN GLARGINE SOLOSTAR 100 UNITS/ML 3 ML PEN SC SCH (22:33)
[2021-08-03] MEDS: LEVOTHYROXINE SODIUM 75 MCG TABLET PO SCH (22:33)
[2021-08-03] MEDS: SPIRONOLACTONE 12.5 MG TAB PO SCH (22:33)
[2021-08-03] MEDS: MULTIVITAMIN TAB PO SCH (22:33)
[2021-08-04] MEDS: ACETAMINOPHEN 325 MG TAB PO SCH ×4 (04:37→20:38)
[2021-08-04 06:51] LABS: BUN Creatinine Ratio 43.1 (10-20); Calcium 8.7 mg/dl (8.5-10.1); Creatinine Clr Calc Pharmacy 62.2 ml/min; Est GFR (African American) 101.6 ml/min; Est GFR (Non-African American) 87.7 ml/min; Potassium 4.5 mmol/L (3.5-5.1)
[2021-08-04] MEDS: METOPROLOL SUCC 50MG EXT REL TAB PO SCH ×2 (08:29→20:32)
[2021-08-04] MEDS: FUROSEMIDE 20 MG TAB PO SCH (08:29)
[2021-08-04] MEDS: INSULIN ASPART PER UNIT SC SCH ×4 (08:30→20:37)
[2021-08-04] MEDS: LIDOCAINE 5% 1 PATCH TD SCH (08:30)
[2021-08-04] MEDS: DIGOXIN 0.125 MG TAB PO SCH (13:30)
[2021-08-04] MEDS ORDERED: RIZATRIPTAN BENZOATE 10 MG TAB PO PRN (16:44)
--- NOTE | 2021-08-04 16:44 | Hospitalist Progress Note ---
Date of Service August 04, 2021 Assessment & Plan (1) Sternal fracture: Plan: Per Dr. Delcid's note with addendum: This is a 81-year-old female who has significant past history of insulin- dependent T2DM uncontrolled, PAF not anticoagulated on warfarin, history of sinus node dysfunction status post pacemaker placement in 2009, chronic HFpEF, peripheral neuropathy, hypothyroidism, HTN, HLD who presents to ED after experiencing chest pain and shortness of breath x1 week. Of significance patient sustained a fall approximately 1 week ago. Acute mildly displaced and angulated fracture of the mid sternal body with trace retrosternal hemorrhage. Anterior L 4th and 5th rib fracture Anterior chest wall pain elevated troponin Mechanical Fall 1 week ago ED provider discussed cased with trauma service at [facility], Dr. Clark, who stated no acute intervention required, conservative management at this time, if further sx evolve can reach out to trauma service at [facility], no transfer necessary pain management with ICE, lidocaine patch, scheduled APAP, prn IV morphine or PO oxy IR 08/01 (+)sternal and rib pain improving Echo: no mention of contusion Tylenol PO q6h ordered PRN Tramadol NO narcotics due to high risk for encephalopathy Pain management consulted, continue present pain regimen Continue incentive spirometry PT recommending SNF 08/04: Pt reports pain under control, doing better. Metabolic vs toxic encephalopathy, resolved likely Multifactorial from: Narcotics Acute Renal Failure Possible Lower Extremity Cellulitis, Infected wound, Left (Hx of Left leg wound 07/04, Enterococus + MSSA) -back to baseline -Admitted to ICU - responded to Narcan - hold Narcotics management of ARF per below - Wound Culture ordered Blood culture: negative Urine culture: Vivienne, likely colonization - Zosyn discontinued - leg erythema improving of antibiotics 08/04: AOx3, resolved CASH Anion gap metabolic acidosis baseline cr 0.6-0.7 Likely from prerenal, poor oral intake Resolved. Closed head injury L facial ecchymosis and L frontal scalp hematoma - improving repeat CT head: No significant change compared to the prior study. No acute intracranial abnormality. 08/04 -->Pt denies headache. B/L Lower ext venous stasis Possible lower extremity cellulitis Diabetic ulcer to L leg consult wound care IV Zosyn discontinued per ICU team, does not seem to be cellulitis Wound culture:Not collected Blood culture: negative so far improving off antibiotics #. Other chronic medical conditions: Chronic HFpEF, HTN, uncontrolled T2DM, A. fib, history of TBS status post PPM 2009 Continue/resume home meds as and when appropriate. Lantus/NovoLog per protocol. Usually on metoprolol succinate 200 mg twice daily, slowly restarted at 50 mg twice a day-->100 mg twice a day. not on OAC 2/2 to hx of SAH possible Myocardial infarction type 2 Elevated troponin no chest pain Chronic anemia baseline hgb 9-10 Remained at baseline around 9 monitor closely DVT ppx: SCD/TEDS for now, no chemical prophylaxis in setting of recent trauma, trace retrosternal hemorrhage and hx of SAH Dispo: PT OT recommending discharge to SNF; medically stable for DC. FULL CODE PCP: Gege Fontenot Admission and Anticipated Discharge Date Admission Date: July 26, 2021 Subjective Patient seen and examined at bedside as a follow-up of sternal fracture and left fourth and fifth rib fracture. Patient was lying in bed, on room air, NAD, no new acute events overnight. Patient reports pain under control, report feeling tired today. Per RN, no new acute events overnight, eating ok and moving BM ok. Patient denies fever/headache/chills/chest pain/palpitations/belly pain/other review of symptoms. Physical Exam Physical Exam: GENERAL: Alert and oriented x3. NAD, on RA. appears ill looking and frail. HEENT: No pallor, no icterus. Pupils equal, round and reactive to light. Oral mucosa moist. Lt forehead lump noted, left cheek bruise noted--> stable/improving NECK: No JVD, no neck masses. HEART: S1 and S2 heard. Regular rate and rhythm. No murmur, no gallop. RESPIRATORY SYSTEM: Normal AP diameter. No accessory muscle use. No wheezing, no crackles. ABDOMEN: Soft, bowel sounds present, nontender, no distention. CENTRAL NERVOUS SYSTEM: No facial droop. Speech is clear. Obeys simple commands. Moves extremities. EXTREMITIES: trace BLE edema, BLE chronic skin changes noted. Results & Data Results & Data ([facility]) Vital Signs (Past 12 Hours) Vital Signs Temp Pulse Pulse Resp BP Pulse Ox 08/04/21 16:00 85 08/04/21 15:00 36.7 C 86 16 130/87 95 08/04/21 13:30 85 08/04/21 11:30 36.8 C 79 18 143/92 H 97 08/04/21 08:00 36.8 C 87 16 118/69 98 (1) Sternal fracture Encounter type: initial encounter Fracture type: closed Sternal location: body of sternum Qualified Code(s): S22.22XA - Fracture of body of sternum, initial encounter for closed fracture
[2021-08-04] MEDS: allopurinoL 100 MG TAB PO SCH (20:32)
[2021-08-04] MEDS: LEVOTHYROXINE SODIUM 75 MCG TABLET PO SCH (20:32)
[2021-08-04] MEDS: SPIRONOLACTONE 12.5 MG TAB PO SCH (20:32)
[2021-08-04] MEDS: ATORVASTATIN 40 MG TAB PO SCH (20:32)
[2021-08-04] MEDS: LOSARTAN POTASSIUM 50 MG TAB PO SCH (20:32)
[2021-08-04] MEDS: allopurinoL 300 MG TAB PO SCH (20:32)
[2021-08-04] MEDS: MULTIVITAMIN TAB PO SCH (20:32)
[2021-08-04] MEDS: INSULIN GLARGINE SOLOSTAR 100 UNITS/ML 3 ML PEN SC SCH (20:41)
[2021-08-05] MEDS: ACETAMINOPHEN 325 MG TAB PO SCH ×4 (04:10→21:25)
[2021-08-05] MEDS: INSULIN ASPART PER UNIT SC SCH ×4 (09:17→22:06)
[2021-08-05] MEDS: METOPROLOL SUCC 50MG EXT REL TAB PO SCH ×2 (09:20→21:14)
[2021-08-05] MEDS: LIDOCAINE 5% 1 PATCH TD SCH (09:21)
[2021-08-05] MEDS: FUROSEMIDE 20 MG TAB PO SCH (09:22)
[2021-08-05] MEDS: traMADol HCL 50 MG TABLET PO PRN (12:31)
--- NOTE | 2021-08-05 12:56 | Hospitalist Progress Note ---
Date of Service August 05, 2021 Assessment & Plan (1) Sternal fracture: Plan: Per Dr. Delcid's note with addendum: This is a 81-year-old female who has significant past history of insulin- dependent T2DM uncontrolled, PAF not anticoagulated on warfarin, history of sinus node dysfunction status post pacemaker placement in 2009, chronic HFpEF, peripheral neuropathy, hypothyroidism, HTN, HLD who presents to ED after experiencing chest pain and shortness of breath x1 week. Of significance patient sustained a fall approximately 1 week ago. Acute mildly displaced and angulated fracture of the mid sternal body with trace retrosternal hemorrhage. Anterior L 4th and 5th rib fracture Anterior chest wall pain elevated troponin Mechanical Fall 1 week ago ED provider discussed cased with [place] [facility] Clark, who stated no acute intervention required, conservative management at this time, if further sx evolve can reach out to trauma service at [facility], no transfer necessary pain management with ICE, lidocaine patch, scheduled APAP, prn IV morphine or PO oxy IR 08/01 (+)sternal and rib pain improving Echo: no mention of contusion Tylenol PO q6h ordered PRN Tramadol NO narcotics due to high risk for encephalopathy Pain management consulted, continue present pain regimen Continue incentive spirometry PT recommending SNF 08/05: Pt reports pain under control, doing better. On Tramadol prn and tylenol. Metabolic vs toxic encephalopathy, resolved likely Multifactorial from: Narcotics Acute Renal Failure Possible Lower Extremity Cellulitis, Infected wound, Left (Hx of Left leg wound 07/04, Enterococus + MSSA) -back to baseline -Admitted to ICU - responded to Narcan - hold Narcotics management of ARF per below - Wound Culture ordered Blood culture: negative Urine culture: Vivienne, likely colonization - Zosyn discontinued - leg erythema improving of antibiotics 08/04: AOx3, resolved CASH Anion gap metabolic acidosis baseline cr 0.6-0.7 Likely from prerenal, poor oral intake Resolved. Closed head injury L facial ecchymosis and L frontal scalp hematoma - improving repeat CT head: No significant change compared to the prior study. No acute intracranial abnormality. 08/05 -->Pt denies headache. B/L Lower ext venous stasis Possible lower extremity cellulitis Diabetic ulcer to L leg consult wound care IV Zosyn discontinued per ICU team, does not seem to be cellulitis Wound culture:Not collected Blood culture: negative improving off antibiotics #. Other chronic medical conditions: Chronic HFpEF, HTN, uncontrolled T2DM, A. fib, history of TBS status post PPM 2009 Continue/resume home meds as and when appropriate. Lantus/NovoLog per protocol. Usually on metoprolol succinate 200 mg twice daily, slowly restarted at 50 mg twice a day-->100 mg twice a day. Heart Rate has been under control. not on OAC 2/2 to hx of SAH possible Myocardial infarction type 2 Elevated troponin no chest pain Chronic anemia baseline hgb 9-10 Remained at baseline around 9 monitor closely DVT ppx: SCD/TEDS for now, no chemical prophylaxis in setting of recent trauma, trace retrosternal hemorrhage and hx of SAH. MObilize the patient. Dispo: PT OT recommending discharge to SNF; medically stable for DC. Med/Surg. FULL CODE PCP: Gege Fontenot Admission and Anticipated Discharge Date Admission Date: July 26, 2021 Subjective Patient seen and examined at bedside as a follow-up of sternal fracture and left fourth and fifth rib fracture. Patient was lying in bed, on room air, NAD, no new acute events overnight. Patient reports pain under control, report feeling better today. Per RN, no new acute events overnight, eating ok and moving BM ok. Patient denies fever/headache/chills/chest pain/palpitations/belly pain/other review of symptoms. Physical Exam Physical Exam: GENERAL: Alert and oriented x3. NAD, on RA. appears ill looking and frail. HEENT: No pallor, no icterus. Pupils equal, round and reactive to light. Oral mucosa moist. Lt forehead lump noted, left cheek bruise noted--> stable/improving NECK: No JVD, no neck masses. HEART: S1 and S2 heard. Regular rate and rhythm. No murmur, no gallop. RESPIRATORY SYSTEM: Normal AP diameter. No accessory muscle use. No wheezing, no crackles. ABDOMEN: Soft, bowel sounds present, nontender, no distention. CENTRAL NERVOUS SYSTEM: No facial droop. Speech is clear. Obeys simple commands. Moves extremities. EXTREMITIES: trace BLE edema, BLE chronic skin changes noted. Results & Data Results & Data ([facility]) Vital Signs (Past 12 Hours) Vital Signs Temp Pulse Resp BP Pulse Ox 08/05/21 11:09 36.4 C L 81 16 139/76 97 08/05/21 07:16 36.6 C 81 17 126/83 94 08/05/21 04:41 36.6 C 81 14 125/80 95 (1) Sternal fracture Encounter type: initial encounter Fracture type: closed Sternal location: body of sternum Qualified Code(s): S22.22XA - Fracture of body of sternum, initial encounter for closed fracture
[2021-08-05] MEDS: DIGOXIN 0.125 MG TAB PO SCH (14:11)
[2021-08-05] MEDS: LEVOTHYROXINE SODIUM 75 MCG TABLET PO SCH (21:14)
[2021-08-05] MEDS: SPIRONOLACTONE 12.5 MG TAB PO SCH (21:14)
[2021-08-05] MEDS: allopurinoL 300 MG TAB PO SCH (21:15)
[2021-08-05] MEDS: MULTIVITAMIN TAB PO SCH (21:15)
[2021-08-05] MEDS: ATORVASTATIN 40 MG TAB PO SCH (21:16)
[2021-08-05] MEDS: LOSARTAN POTASSIUM 50 MG TAB PO SCH (21:16)
[2021-08-05] MEDS: allopurinoL 100 MG TAB PO SCH (21:16)
[2021-08-05] MEDS: INSULIN GLARGINE SOLOSTAR 100 UNITS/ML 3 ML PEN SC SCH ×2 (22:05→22:33)
[2021-08-06] MEDS: ACETAMINOPHEN 325 MG TAB PO SCH ×4 (03:40→21:26)
[2021-08-06] MEDS: traMADol HCL 50 MG TABLET PO PRN ×2 (05:43→10:14)
[2021-08-06 06:06] LABS: BUN Creatinine Ratio 53.6 (10-20); Calcium 8.6 mg/dl (8.5-10.1); Creatinine Clr Calc Pharmacy 52.3 ml/min; Est GFR (Non-African American) 82.8 ml/min; Magnesium 1.7 mg/dl (1.7-2.4); Potassium 4.7 mmol/L (3.5-5.1)
[2021-08-06 06:41] LABS: Hematocrit (blood only) 27.9 % (37-47); Hemoglobin 8.5 g/dL (12.0-16.0); Mean Corpuscular Hemoglobin 30.2 pg (25-34); Mean Corpuscular Hgb Conc 30.5 g/dL (32-36); Mean Corpuscular Volume 99.3 fL (80-100); Mean Platelet Volume 10.6 fL (7.4-10.4); Platelet Count 140 K/uL (130-400); RDW Standard Deviation 61.4 fL (36.4-46.3); Red Blood Count 2.81 M/uL (4.2-5.4); White Blood Count 5.15 K/uL (4.8-10.8)
[2021-08-06] MEDS: LIDOCAINE 5% 1 PATCH TD SCH (07:50)
[2021-08-06] MEDS: FUROSEMIDE 20 MG TAB PO SCH (08:24)
[2021-08-06] MEDS: METOPROLOL SUCC 50MG EXT REL TAB PO SCH ×2 (08:25→21:14)
[2021-08-06] MEDS: INSULIN ASPART PER UNIT SC SCH ×4 (08:44→21:01)
[2021-08-06] MEDS: HEPARIN SOD 5,000 UNIT/0.5 ML VIAL SQ SCH ×2 (10:14→21:14)
[2021-08-06] MEDS: MAGNESIUM OXIDE 400 MG TAB PO SCH ×2 (10:14→21:14)
[2021-08-06] MEDS: DIGOXIN 0.125 MG TAB PO SCH (14:20)
--- NOTE | 2021-08-06 17:18 | Hospitalist Progress Note ---
Date of Service August 06, 2021 Assessment & Plan (1) Sternal fracture: Plan: Per Dr. Delcid's note with addendum: This is a 81-year-old female who has significant past history of insulin- dependent T2DM uncontrolled, PAF not anticoagulated on warfarin, history of sinus node dysfunction status post pacemaker placement in 2009, chronic HFpEF, peripheral neuropathy, hypothyroidism, HTN, HLD who presents to ED after experiencing chest pain and shortness of breath x1 week. Of significance patient sustained a fall approximately 1 week ago. Acute mildly displaced and angulated fracture of the mid sternal body with trace retrosternal hemorrhage. Anterior L 4th and 5th rib fracture Anterior chest wall pain elevated troponin Mechanical Fall 1 week ago ED provider discussed cased with trauma service at [facility], Dr. Clark, who stated no acute intervention required, conservative management at this time, if further sx evolve can reach out to trauma service at [facility], no transfer necessary pain management with ICE, lidocaine patch, scheduled APAP, prn IV morphine or PO oxy IR 08/01 (+)sternal and rib pain improving Echo: no mention of contusion Tylenol PO q6h ordered PRN Tramadol NO narcotics due to high risk for encephalopathy Pain management consulted, continue present pain regimen Continue incentive spirometry PT recommending SNF 08/06: Pt reports pain under control, doing better. On Tramadol prn and tylenol. Metabolic vs toxic encephalopathy, resolved likely Multifactorial from: Narcotics Acute Renal Failure Possible Lower Extremity Cellulitis, Infected wound, Left (Hx of Left leg wound 07/04, Enterococus + MSSA) -back to baseline -Admitted to ICU - responded to Narcan - hold Narcotics management of ARF per below - Wound Culture ordered Blood culture: negative Urine culture: Vivienne, likely colonization - Zosyn discontinued - leg erythema improving of antibiotics 08/06: AOx3, resolved CASH Anion gap metabolic acidosis baseline cr 0.6-0.7 Likely from prerenal, poor oral intake Resolved. Closed head injury L facial ecchymosis and L frontal scalp hematoma - improving repeat CT head: No significant change compared to the prior study. No acute intracranial abnormality. 08/06 -->Pt denies headache. B/L Lower ext venous stasis Possible lower extremity cellulitis Diabetic ulcer to L leg consult wound care IV Zosyn discontinued per ICU team, does not seem to be cellulitis Wound culture:Not collected Blood culture: negative improving off antibiotics #. Other chronic medical conditions: Chronic HFpEF, HTN, uncontrolled T2DM, A. fib, history of TBS status post PPM 2009 Continue/resume home meds as and when appropriate. Lantus/NovoLog per protocol. Usually on metoprolol succinate 200 mg twice daily, slowly restarted at 50 mg twice a day-->100 mg twice a day. Heart Rate has been under control. not on OAC 2/2 to hx of SAH possible Myocardial infarction type 2 Elevated troponin no chest pain Chronic anemia baseline hgb 9-10 Remained at baseline around 9 monitor closely DVT ppx: SCD/TEDS for now, no chemical prophylaxis in setting of recent trauma, trace retrosternal hemorrhage and hx of SAH. MObilize the patient. Dispo: PT OT recommending discharge to SNF; medically stable for DC. Med/Surg. FULL CODE PCP: Gege Fontenot Admission and Anticipated Discharge Date Admission Date: July 26, 2021 Subjective Patient seen and examined at bedside as a follow-up of sternal fracture and left fourth and fifth rib fracture. Patient was lying in bed, on room air, NAD, no new acute events overnight. Patient reports pain under control. Patient denies fever/headache/chills/chest pain/palpitations/belly pain/other review of symptoms. Physical Exam Physical Exam: GENERAL: Alert and oriented x3. NAD, on RA. appears ill looking and frail. HEENT: No pallor, no icterus. Pupils equal, round and reactive to light. Oral mucosa moist. Lt forehead lump noted, left cheek bruise noted--> stable/improving NECK: No JVD, no neck masses. HEART: S1 and S2 heard. Regular rate and rhythm. No murmur, no gallop. RESPIRATORY SYSTEM: Normal AP diameter. No accessory muscle use. No wheezing, no crackles. ABDOMEN: Soft, bowel sounds present, nontender, no distention. CENTRAL NERVOUS SYSTEM: No facial droop. Speech is clear. Obeys simple commands. Moves extremities. EXTREMITIES: trace BLE edema, BLE chronic skin changes noted. Results & Data Results & Data ([facility]) Vital Signs (Past 12 Hours) Vital Signs Temp Pulse Pulse Resp BP Pulse Ox 08/06/21 14:20 78 08/06/21 14:16 36.3 C L 77 16 100/57 L 96 08/06/21 07:59 36.2 C L 64 16 136/85 95 (1) Sternal fracture Encounter type: initial encounter Fracture type: closed Sternal location: body of sternum Qualified Code(s): S22.22XA - Fracture of body of sternum, initial encounter for closed fracture
[2021-08-06] MEDS: ONDANSETRON INJ 2 MG/ML 2 ML VIAL IV PRN (17:32)
[2021-08-06] MEDS ORDERED: HEPARIN SOD 5,000 UNIT/0.5 ML VIAL SQ SCH (21:00)
[2021-08-06] MEDS: allopurinoL 100 MG TAB PO SCH (21:12)
[2021-08-06] MEDS: SPIRONOLACTONE 12.5 MG TAB PO SCH (21:13)
[2021-08-06] MEDS: ATORVASTATIN 40 MG TAB PO SCH (21:13)
[2021-08-06] MEDS: allopurinoL 300 MG TAB PO SCH (21:13)
[2021-08-06] MEDS: LEVOTHYROXINE SODIUM 75 MCG TABLET PO SCH (21:13)
[2021-08-06] MEDS: LOSARTAN POTASSIUM 50 MG TAB PO SCH (21:13)
[2021-08-06] MEDS: MULTIVITAMIN TAB PO SCH (21:14)
[2021-08-06] MEDS: INSULIN GLARGINE SOLOSTAR 100 UNITS/ML 3 ML PEN SC SCH (21:14)
[2021-08-07] MEDS: ACETAMINOPHEN 325 MG TAB PO SCH ×4 (03:28→20:46)
[2021-08-07 07:29] LABS: Hematocrit (blood only) 29.8 % (37-47); Hemoglobin 8.8 g/dL (12.0-16.0)
[2021-08-07] MEDS: FUROSEMIDE 20 MG TAB PO SCH (08:23)
[2021-08-07] MEDS: METOPROLOL SUCC 50MG EXT REL TAB PO SCH ×2 (08:24→20:39)
[2021-08-07] MEDS: MAGNESIUM OXIDE 400 MG TAB PO SCH ×2 (08:25→20:37)
[2021-08-07] MEDS: LIDOCAINE 5% 1 PATCH TD SCH (08:25)
[2021-08-07] MEDS: INSULIN ASPART PER UNIT SC SCH ×4 (09:24→20:34)
[2021-08-07] MEDS: HEPARIN SOD 5,000 UNIT/0.5 ML VIAL SQ SCH ×2 (09:26→20:39)
[2021-08-07] MEDS: DIGOXIN 0.125 MG TAB PO SCH (14:26)
--- NOTE | 2021-08-07 17:36 | Hospitalist Progress Note ---
Date of Service August 07, 2021 Assessment & Plan (1) Sternal fracture: Plan: Per Dr. Delcid's note with addendum: This is a 81-year-old female who has significant past history of insulin- dependent T2DM uncontrolled, PAF not anticoagulated on warfarin, history of sinus node dysfunction status post pacemaker placement in 2009, chronic HFpEF, peripheral neuropathy, hypothyroidism, HTN, HLD who presents to ED after experiencing chest pain and shortness of breath x1 week. Of significance patient sustained a fall approximately 1 week ago. Acute mildly displaced and angulated fracture of the mid sternal body with trace retrosternal hemorrhage. Anterior L 4th and 5th rib fracture Anterior chest wall pain elevated troponin Mechanical Fall 1 week ago ED provider discussed cased with trauma service at [facility], Dr. Clark, who stated no acute intervention required, conservative management at this time, if further sx evolve can reach out to trauma service at [place], no transfer necessary pain management with ICE, lidocaine patch, scheduled APAP, prn IV morphine or PO oxy IR 08/01 (+)sternal and rib pain improving Echo: no mention of contusion Tylenol PO q6h ordered PRN Tramadol NO narcotics due to high risk for encephalopathy Pain management consulted, continue present pain regimen Continue incentive spirometry PT recommending SNF 08/07: Pt reports pain under control, doing better. On Tramadol prn and tylenol. Metabolic vs toxic encephalopathy, resolved likely Multifactorial from: Narcotics Acute Renal Failure Possible Lower Extremity Cellulitis, Infected wound, Left (Hx of Left leg wound 07/04, Enterococus + MSSA) -back to baseline -Admitted to ICU - responded to Narcan - hold Narcotics management of ARF per below - Wound Culture ordered Blood culture: negative Urine culture: Vivienne, likely colonization - Zosyn discontinued - leg erythema improving of antibiotics 08/07: AOx3, resolved CASH Anion gap metabolic acidosis baseline cr 0.6-0.7 Likely from prerenal, poor oral intake Resolved. Closed head injury L facial ecchymosis and L frontal scalp hematoma - improving repeat CT head: No significant change compared to the prior study. No acute intracranial abnormality. 08/07 -->Pt denies headache. B/L Lower ext venous stasis Possible lower extremity cellulitis Diabetic ulcer to L leg consult wound care IV Zosyn discontinued per ICU team, does not seem to be cellulitis Wound culture:Not collected Blood culture: negative improving off antibiotics #. Other chronic medical conditions: Chronic HFpEF, HTN, uncontrolled T2DM, A. fib, history of TBS status post PPM 2009 Continue/resume home meds as and when appropriate. Lantus/NovoLog per protocol. Usually on metoprolol succinate 200 mg twice daily, slowly restarted at 50 mg twice a day-->100 mg twice a day. Heart Rate has been under control. not on OAC 2/2 to hx of SAH possible Myocardial infarction type 2 Elevated troponin no chest pain Chronic anemia baseline hgb 9-10 Remained at baseline around 9 monitor closely DVT ppx: SCD/TEDS for now, no chemical prophylaxis in setting of recent trauma, trace retrosternal hemorrhage and hx of SAH. MObilize the patient. Dispo: PT OT recommending discharge to SNF; medically stable for DC. Pt declining rehab today, wants to go with HH, Dtr wants to take her home tomorrow. Hopefully will be able to DC her tomorrow. FULL CODE PCP: Gege Fontenot Admission and Anticipated Discharge Date Admission Date: July 26, 2021 Subjective Patient seen and examined at bedside as a follow-up of sternal fracture and left fourth and fifth rib fracture. Patient was sitting up in chair, on room air, NAD, no new acute events overnight. Patient reports pain under control. Patient denies fever/headache/chills/chest pain/palpitations/belly pain/other review of symptoms. Physical Exam Physical Exam: GENERAL: Alert and oriented x3. NAD, on RA. appears ill looking and frail. HEENT: No pallor, no icterus. Pupils equal, round and reactive to light. Oral mucosa moist. Lt forehead lump noted, left cheek bruise noted--> stable/improving NECK: No JVD, no neck masses. HEART: S1 and S2 heard. Regular rate and rhythm. No murmur, no gallop. RESPIRATORY SYSTEM: Normal AP diameter. No accessory muscle use. No wheezing, no crackles. ABDOMEN: Soft, bowel sounds present, nontender, no distention. CENTRAL NERVOUS SYSTEM: No facial droop. Speech is clear. Obeys simple commands. Moves extremities. EXTREMITIES: trace BLE edema, BLE chronic skin changes noted. Results & Data Results & Data ([facility]) Vital Signs (Past 12 Hours) Vital Signs Temp Pulse Pulse Resp BP BP Pulse Ox 08/07/21 16:07 36.8 C 73 16 123/70 97 08/07/21 14:26 80 80 08/07/21 08:22 90 145/72 H 08/07/21 08:08 36.9 C 79 16 123/71 95 (1) Sternal fracture Encounter type: initial encounter Fracture type: closed Sternal location: body of sternum Qualified Code(s): S22.22XA - Fracture of body of sternum, initial encounter for closed fracture
[2021-08-07] MEDS: allopurinoL 100 MG TAB PO SCH (20:36)
[2021-08-07] MEDS: allopurinoL 300 MG TAB PO SCH (20:37)
[2021-08-07] MEDS: LOSARTAN POTASSIUM 50 MG TAB PO SCH (20:37)
[2021-08-07] MEDS: MULTIVITAMIN TAB PO SCH (20:37)
[2021-08-07] MEDS: SPIRONOLACTONE 12.5 MG TAB PO SCH (20:37)
[2021-08-07] MEDS: ATORVASTATIN 40 MG TAB PO SCH (20:38)
[2021-08-07] MEDS: LEVOTHYROXINE SODIUM 75 MCG TABLET PO SCH (20:38)
[2021-08-07] MEDS: INSULIN GLARGINE SOLOSTAR 100 UNITS/ML 3 ML PEN SC SCH (20:40)
[2021-08-08] MEDS: ACETAMINOPHEN 325 MG TAB PO SCH ×2 (03:20→08:46)
[2021-08-08] MEDS: MAGNESIUM OXIDE 400 MG TAB PO SCH (08:41)
[2021-08-08] MEDS: LIDOCAINE 5% 1 PATCH TD SCH (08:41)
[2021-08-08] MEDS: FUROSEMIDE 20 MG TAB PO SCH (08:41)
[2021-08-08] MEDS: METOPROLOL SUCC 50MG EXT REL TAB PO SCH (08:41)
[2021-08-08] MEDS: HEPARIN SOD 5,000 UNIT/0.5 ML VIAL SQ SCH (08:42)
[2021-08-08] MEDS: INSULIN ASPART PER UNIT SC SCH ×2 (08:43→12:38)
--- NOTE | 2021-08-08 10:23 | Discharge Summary ---
Date of Service August 08, 2021 Admission HPI Per Admitting Provider This is a 81-year-old female who has significant past history of insulin- dependent T2DM uncontrolled, PAF not anticoagulated on warfarin, history of sinus node dysfunction status post pacemaker placement in 2009, chronic HFpEF, peripheral neuropathy, hypothyroidism, HTN, HLD who presents to ED after experiencing chest pain and shortness of breath x1 week. Of significance patient sustained a fall approximately 1 week ago. She states that she was walking in her kitchen with her walker when her walker went out from under her and she fell and hit the left side of her head in the corner of the kitchen. She feels she may have lost consciousness for approximately 15 minutes. She states her fall was witnessed. She recalls all events of the fall. She was brought to ED for further evaluation. At that point in time she underwent head, face, C-spine and abdomen pelvis CT along with rib and chest x-ray which is negative for acute traumatic injury. She also admits to being dizzy, described as a spinning sensation, for the last week as well. She denies any further falls. Since having her fall 1 week ago she has been experiencing significant substernal chest pain that is nonradiating. She has never experienced pain like this in the past. She further feels short of breath because she is unable to, "take a deep breath." She feels she is unable to take a deep breath due to pain. She also complains of a dry cough that makes chest pain worse. Nothing makes pain better except sitting. She has been taking Tylenol at home without relief. Due to symptoms persistently getting worse she opted to present to ED today. She has been taking her medications as prescribed. She has had significant poor intake over the past week due to pain and ill feeling. Currently she denies any fever, chills, sweats, lightheadedness, dizziness, shortness of breath at rest, hemoptysis, nausea, vomiting, abdominal pain, change in bowel or urinary habits. She does feel that her lower extremities are much more swollen than usual. She does have wounds to her left leg in which she states she goes to wound care. In ED patient made hemodynamically stable although initially mildly hypotensive. She did receive gentle IV fluid due to evidence of CASH with creatinine elevated to 1.87. Further lab abnormalities include chronic anemia with a stable hemoglobin at 9.3 and hematocrit of 29.7, anion gap acidosis with a bicarb of 10, glucose 175, high-sensitivity troponin 30.9. She underwent chest CT which revealed an acute mildly displaced and angulated fracture of the mid sternal body with trace retrosternal hemorrhage as well as subtle age-indeterminate fractures of the anterior left fourth and fifth ribs. Noted was marked cardiomegaly with mild pulmonary edema and trace pleural effusions. ED provider discussed case with [facility] Trauma service Dr. Clark and felt no need for acute intervention but conservative management and pain control. Admission Exam Per Admitting Provider Constitutional: Elderly F, appears in pain, WD/WN, vitals as above, sitting up in bed, pleasant, conversing easily Head: Normocephalic, +L sided facial ecchymosis with L frontal scalp hematoma Eyes: PERRL, conjunctivae normal, anicteric sclerae ENMT: external ear and nose normal, oropharynx normal dry membranes Neck: trachea midline, no thyromegaly normal visual inspection Respiratory: decreased respiratory effort with shallow breathing, lungs clear to auscultation, no wheeze, rales, rhonchi. No accessory muscle use Cardiovascular: RRR, 1/6 RUDY noted RUSB, +1-2 pretibial and prox thigh edema with b/l venous stasis changes noted, L pretibial area with superficial wounds, RLE with erythema Vessels: no JVD or carotid bruit Chest: normal inspection of chest , no chest wall ecchymosis, pain to palpation Abdomen: normal bowel sounds, soft, nontender, Musculoskeletal: no cyanosis or clubbing, AROM Skin: no rashes, warm and dry normal turgor Neurologic: PERRL, EOMI, accommodation nl, no face palsy, no dysarthria CN's II-XI intact bilaterally and moves all extremities Psychiatric: A+Ox3, euthymic affect Lymphatic: no cervical or axillary lymphadenopathy : deferred Principal Diagnosis Acute mildly displaced and angulated fracture of the mid sternal body with trace retrosternal hemorrhage. Anterior Left 4th and 5th rib fracture Anterior chest wall pain Acute Kidney Injury Encephalopathy - resolved Discharge Exam Gen: WD/WN, Elderly F, NAD, A&O x3, decreased eye contact HEENT: Normocephalic, + L facial bruising but improving and resolving, conjunctivae moist, sclerae anicteric, mucous membranes moist. Lung: Clear to Auscultation bilaterally, no wheezes/rales/rhonchi Heart: Regular rate, regular rhythm, no murmurs, rubs, or gallops Abdomen: Soft, NT, ND +BS x 4 Extremities: No edema with venous stasis changes Skin: Warm, no rash, negative turgor. Discharge Data Allergies Allergy/AdvReac Type Severity Reaction Status Date / Time citalopram Allergy Unknown Unknown Verified 07/26/21 07:19 paroxetine Allergy Unknown Unknown Verified 07/26/21 07:19 Sulfa (Sulfonamide Allergy Unknown TOLERATES Verified 07/26/21 07:19 Antibiotics) LASIX venom-wasp protein Allergy Unknown HIVES Verified 07/26/21 07:19 celecoxib AdvReac Mild N/V Verified 07/26/21 07:19 Consultations 07/26/21 09:26 ED Decision to Admit Stat 07/27/21 03:10 Consult [employer]ed Circuit [employer] Rew[employer]er Routine 07/27/21 06:21 Consult Nephrology Routine 07/31/21 10:58 Consult Pain Management Routine Ordered Studies Chest CT 07/26/21 08:05 CT chest diagnostic wo con CT DOSE: 226.10 mGy.cm CLINICAL HISTORY: 81 years-old Female with cp, sob, s/p fall. Acute chest trauma status post fall TECHNIQUE: Multiaxial CT images of the chest were performed without contrast. A dose lowering technique was utilized adhering to the principles of ALARA. COMPARISON: CT abdomen and pelvis 07/20/2021, CTA chest 01/02/2010 FINDINGS: Calcifications of the thyroid. No pathologically enlarged lymph nodes are identified. There is marked cardiomegaly with small pericardial effusion. Left subclavian pacer. Extensive coronary artery calcifications. Advanced atherosclerosis of the thoracic aorta descending tortuosity. Dilated pulmonary artery suggestive of pulmonary artery hypertension. Trace pleural effusions. Intralobular septal thickening with intermixed groundglass densities. Mild dependent subsegmental bibasilar atelectasis. No pneumothorax. Decreased AP dimension of the trachea and bronchi may represent tracheobronchomalacia. Mild bibasilar mucous plugging. No acute of the imaged upper abdomen. Secretions are noted within the mid esophagus. Moderate sized hiatal hernia. Mild generalized body wall edema. Degenerative changes of the shoulders and spine. There is an acute mildly displaced and angulated fracture involving the mid sternal body. Trace retrosternal hemorrhage within the anterior mediastinum. Subtle angulation of the anterior fourth and fifth ribs suggests age-indeterminate fractures. No acute displaced rib fracture identified. IMPRESSION: 1. Acute mildly displaced and angulated fracture of the mid sternal body with trace retrosternal hemorrhage. 2. Subtle age-indeterminate fractures of the anterior left fourth and fifth ribs. No acute displaced rib fracture or pneumothorax. 3. Marked cardiomegaly with mild pulmonary edema and trace pleural effusions. 4. Pulmonary artery hypertension. 5. Moderate sized hiatal hernia. ACT 112: Negative or not required by law. Electronically signed by: Sarthak Quigley M.D. 07/26/2021 9:[address] 07/26/21 10:27 CT head/brain wo con CLINICAL HISTORY: 81 years-old Female with headache, recent fall, dizzy. Acute head trauma status post fall TECHNIQUE: Multiple axial CT images of the head were obtained without contrast. A dose lowering technique was utilized adhering to the principles of ALARA. CT DOSE: 729.78 mGycm COMPARISON: Head CT 07/20/2021 FINDINGS: No acute intracranial hemorrhage, midline shift, intracranial mass, hydrocephalus, territorial ischemia or abnormal extra-axial collection. Age- related involutional changes with ex vacuo ventriculomegaly. White matter hypodensities suggest chronic microvascular ischemic disease. Cerebral vascular calcifications. Encephalomalacia of the left cerebellar hemisphere again noted. Senescent calcifications of the basal ganglia. The calvarium is intact. Complete opacification of the left sphenoid sinus. Resolution of the previously described left maxillary sinus air-fluid level. Left frontal and temporal scalp contusions are redemonstrated. The subcutaneous nodules are unchanged. Prior bilateral lens repair. IMPRESSION: 1. No acute intracranial abnormality or calvarial fracture. 2. Left scalp contusions redemonstrated. ACT 112: Negative or not required by law. The above report was generated using voice recognition software. It may contain grammatical, syntax or spelling errors. Electronically signed by: Sarthak Quigley M.D. 07/26/2021 11:[address] 07/27/21 01:43 CT chest diagnostic wo con, CT abd pelvis wo con CT DOSE: 1592.15 mGy.cm CLINICAL HISTORY: 81 years-old Female with fall.. Acute chest and abdominal trauma status post fall TECHNIQUE: Multiaxial CT images of the chest, abdomen and pelvis were performed without contrast. A dose lowering technique was utilized adhering to the principles of ALARA. COMPARISON: CT chest 07/26/2021, CT abdomen and pelvis 07/20/2021 FINDINGS: CT CHEST: Calcifications of the thyroid. No pathologically enlarged lymph nodes are identified. There is marked cardiomegaly with small pericardial effusion. Left subclavian pacer. Extensive coronary artery calcifications. Advanced atherosc lerosis of the thoracic aorta descending tortuosity. Dilated pulmonary artery suggestive of pulmonary artery hypertension. Trace pleural effusions. Intralobular septal thickening with intermixed groundglass densities. Mild dependent subsegmental bibasilar atelectasis. No pneumothorax. Decreased AP dimension of the trachea and bronchi may represent tracheobronchomalacia. Mild bibasilar mucous plugging. No acute of the imaged upper abdomen. Secretions are noted within the mid esophagus. Generalized body wall edema. Degenerative changes of the shoulders and spine. There is an acute mildly displaced fracture involving the mid sternal body with decreased angulation compared to yesterday's study. Trace retrosternal hemorrhage within the anterior mediastinum. Subtle angulation of the anterior l eft fourth through sixth ribs suggests age-indeterminate fractures. No acute displaced rib fracture identified. CT ABDOMEN/PELVIS: No pneumatosis or pneumoperitoneum. The unenhanced spleen, dystrophic pancreas, adrenal glands and visualized liver appear unremarkable. The gallbladder is not visualized and is either contracted or surgically absent. Calculi of the inferior pole left kidney measure up to 6 mm. Punctate nonobstructing calculus of the superior pole left kidney. 9 mm hypodensity of the inferior pole left kidney, possibly a cyst. No hydronephrosis. Mild urinary bladder distention. Extensive atherosclerosis of the abdominal aorta and branch vessels. Infrarenal IVC filter. Moderate to large hiatal hernia. Extensive colonic diverticulosis. Mild rectal wall thickening with perirectal stranding. Diffuse body wall edema with trace abdominal pelvic ascites. Degenerative changes of the shoulders and spine. Chronic fracture deformity of the posterolateral left eighth rib is unchanged. Prior laminectomy changes of the lumbar spine. ORIF changes of the left proximal femur. IMPRESSION: 1. Acute mildly displaced fracture of the mid sternal body with trace retrosternal hemorrhage. There is decreased cortical angulation compared to yesterday's study. 2. Subtle angulation of the lateral left fourth through sixth ribs is suggestive of acute fractures. Correlate with point tenderness. No pneumothorax. 3. Marked cardiomegaly with trace pleural effusions, anasarca with trace abdominal pelvic ascites. 4. Nonobstructing bilateral nephrolithiasis. 5. Extensive colonic diverticulosis. 6. Additional findings as above. ACT 112: Negative or not required by law. Electronically signed by: Sarthak Quigley M.D. 07/27/2021 9:[address] 07/27/21 01:[address] DOSE: HISTORY: Altered mental status. Fall. TECHNIQUE: Multiaxial CT images of the head were performed without the use of intravenous contrast. Automated exposure control was utilized for this study. A dose lowering technique was utilized adhering to the principles of ALARA. Comparison: Head CT 07/26/2021. Findings: Near complete opacification of the left sphenoid sinus, unchanged. This is likely chronic. The calvarium and skull base are intact. There is no mass, hematoma, midline shift, acute infarct. White matter hypodensity is nonspecific but suggestive of microvascular ischemic change. The ventricles and sulci demonstrate mild age-related involutional changes. Stable hyperdense left frontal scalp nodule. Impression: No significant change compared to the prior study. No acute intracranial abnormality. ACT 112: Negative or not required by law. Electronically signed by: Godwin Ansari M.D. 07/27/2021 7:15 AM Abdomen/Pelvis CT 07/27/21 02:18 CT chest diagnostic wo con, CT abd pelvis wo con CT DOSE: 1592.15 mGy.cm CLINICAL HISTORY: 81 years-old Female with fall.. Acute chest and abdominal trauma status post fall TECHNIQUE: Multiaxial CT images of the chest, abdomen and pelvis were performed without contrast. A dose lowering technique was utilized adhering to the prin ciples of ALARA. COMPARISON: CT chest 07/26/2021, CT abdomen and pelvis 07/20/2021 FINDINGS: CT CHEST: Calcifications of the thyroid. No pathologically enlarged lymph nodes are identified. There is marked cardiomegaly with small pericardial effusion. Left subclavian pacer. Extensive coronary artery calcifications. Advanced atherosclerosis of the thoracic aorta descending tortuosity. Dilated pulmonary artery suggestive of pulmonary artery hypertension. Trace pleural effusions. Intralobular septal thickening with intermixed groundglass densities. Mild dependent subsegmental bibasilar atelectasis. No pneumothorax. Decreased AP dimension of the trachea and bronchi may represent tracheobronchomalacia. Mild bibasilar mucous plugging. No acute of the imaged upper abdomen. Secretions are noted within the mid esophagus. Generalized body wall edema. Degenerative changes of the shoulders and spine. There is an acute mildly displaced fracture involving the mid sternal body with decreased angulation compared to yesterday's study. Trace retrosternal hemorrhage within the anterior mediastinum. Subtle angulation of the anterior left fourth through sixth ribs suggests age-indeterminate fractures. No acute displaced rib fracture identified. CT ABDOMEN/PELVIS: No pneumatosis or pneumoperitoneum. The unenhanced spleen, dystrophic pancreas, adrenal glands and visualized liver appear unremarkable. The gallbladder is not visualized and is either contracted or surgically absent. Calculi of the inferior pole left kidney measure up to 6 mm. Punctate nonobstructing calculus of the superior pole left kidney. 9 mm hypodensity of the inferior pole left kidney, possibly a cyst. No hydronephrosis. Mild urinary bladder distention. Extensive atherosclerosis of the abdominal aorta and branch vessels. Infrarenal IVC filter. Moderate to large hiatal hernia. Extensive colonic diverticulosis. Mild rectal wall thickening with perirectal stranding. Diffuse body wall edema with trace abdominal pelvic ascites. Degenerative changes of the shoulders and spine. Chronic fracture deformity of the posterolateral left eighth rib is unchanged. Prior laminectomy changes of the lumbar spine. ORIF changes of the left proximal femur. IMPRESSION: 1. Acute mildly displaced fracture of the mid sternal body with trace retrosternal hemorrhage. There is decreased cortical angulation compared to yesterday's study. 2. Subtle angulation of the lateral left fourth through sixth ribs is suggestive of acute fractures. Correlate with point tenderness. No pneumothorax. 3. Marked cardiomegaly with trace pleural effusions, anasarca with trace abdominal pelvic ascites. 4. Nonobstructing bilateral nephrolithiasis. 5. Extensive colonic diverticulosis. 6. Additional findings as above. ACT 112: Negative or not required by law. Electronically signed by: Sarthak Quigley M.D. 07/27/2021 9:26 AM Forearm X-Ray 07/29/21 04:20 XR forearm RT 2V CLINICAL HISTORY: fall, pain. COMPARISON STUDY: No previous studies for comparison. TECHNIQUE: AP and lateral right forearm views FINDINGS: Bones: There is no evidence for an acute fracture or dislocation. There is no lytic or blastic lesion. Joints: Joint space narrowing and degenerative changes are seen at the radiocarpal joint. The bones are in anatomic alignment. Soft tissues: There is no focal soft tissue abnormality. IV is in place. Soft tissue calcifications are seen throughout the forearm. There is no radiopaque foreign body. IMPRESSION: 1. No acute osseous pathology. 2. Degenerative changes are present. ACT 112: Negative or not required by law. Electronically signed by: Tomasz Mosqueda M.D. 07/29/2021 9:26 AM Chest X-Ray 07/30/21 17:28 XR chest 1V portable HISTORY: 81 years-old Female R/O ASPIRATION acute shortness of breath with possible aspiration COMPARISON: Chest CT 07/27/2021 TECHNIQUE: Portable AP view of the chest FINDINGS: Marked enlargement of the cardiac silhouette is redemonstrated. Left subclavian pacer. Small pleural effusions. Interstitial coarsening with pulmonary vascular congestion. Hiatal hernia with left lung base opacities. No pneumothorax. Degenerative changes of the shoulders and spine. IMPRESSION: 1. Cardiomegaly with pulmonary edema. 2. Small pleural effusions with mild left lung base opacities suggestive of atelectasis versus pneumonitis. 3. Hiatal hernia. ACT 112: Negative or not required by law. The above report was generated using voice recognition software. It may contain grammatical, syntax or spelling errors. Electronically signed by: Sarthak Quigley M.D. 07/30/2021 6:02 PM Diabetes Follow up Please aim to maintain blood sugar levels below 200 (ideally less than 150 (to support healing and continued recovery. Please notify your provider of blood sugar levels frequently above this target or below 90. Hospital Course (1) Sternal fracture: Per Dr. Delcid's note with addendum: This is a 81-year-old female who has significant past history of insulin- dependent T2DM uncontrolled, PAF not anticoagulated on warfarin, history of sinus node dysfunction status post pacemaker placement in 2009, chronic HFpEF, peripheral neuropathy, hypothyroidism, HTN, HLD who presents to ED after experiencing chest pain and shortness of breath x1 week. 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 On admission she underwent Chest CT which revealed Acute mildly displaced and angulated fracture of the mid sternal body with trace retrosternal hemorrhage and Anterior L 4th and 5th rib fracture. She suffered from significant chest wall pain. Provider in ED did discuss case with trauma service at [facility] who felt no acute intervention was required. She did undergo echocardiogram which was negative for pericardial effusion. Echocardiogram did reveal EF 55 to 60%, grade 2 diastolic dysfunction, dilated RV chamber with reduced systolic function, aortic valve sclerosis moderate, mild AR, moderate MR, moderate TR, severe left atrial enlargement and mild right atrial argument. She did have elevated troponin however this was felt to be secondary to type II MD and demand ischemia. Initially her pain was treated with IV narcotics due to severe intensity; however patient developed altered mental status and obtundation. She did require administration of Narcan and transferred to ICU where her mental status returned to baseline. At this point in time all narcotics were stopped as well as other sedating medications. She did present with CASH that was found on admission. CASH was felt to be prerenal in setting of poor p.o. intake due to severe pain versus possible component of ATN. Renal function returned to baseline. Initially there was concern for left lower extremity cellulitis; however, this was ruled out. Her other medical comorbidities including chronic HFpEF, hypertension, uncontrolled T2DM, A. fib and history of TBI status post PPM in 2009 her monitor during hospitalization remained stable. She did require reduction in her metoprolol succinate from 200 mg twice daily to once daily due to initial hypotension. Pharmacy assisted in managing her diabetes as she has uncontrolled T2DM at baseline. Her last A1c was 10.7 on 07/05/2021. She was seen and evaluated by PT and OT who recommended SNF; however, patient declined. On day of discharge patient was hemodynamically stable and tolerating diet and anticipating discharge to home. She is being discharged home with family and home health services. Her home medications have been resumed. Her chest pain has been well controlled with Tylenol and lidocaine patch. Continues to have ecchymosis and left frontal scalp hematoma that is resolving. Total Time Total Time Spent Total Time Spent (In Minutes): 45 minutes Discharge Plan Discharge Items Patient Disposition: Home - Home Health Services Reason For Visit: Chest Pain Discharge Diagnosis: Acute mildly displaced and angulated fracture of the mid sternal body with trace retrosternal hemorrhage. Anterior Left 4th and 5th rib fracture Anterior chest wall pain Acute Kidney Injury Encephalopathy - resolved Condition on Discharge: Good Activity: Resume your previous activity Lifting: None Bathing: No limitations Driving/Machine Use: Do not Drive until follow up with Primary Care Provider Weightbearing: Full weightbearing Non-emergency contact: Primary Care Provider Call non-emergency contact if: you have any medication questions, your symptoms worsen, your pain is not controlled, your pain is worsening, your pain is unusual for you, your pain is concerning for you, you have a fever and your temperature is above 101.5 Follow-up/Referrals: Trey Trevino [Physician Color Expert] - (Date & Time 08/17/2021 9:30 AM Provider [facility] Department Cardiology, [facility] Date & Time 08/17/2021 10:30 AM Provider Trey Trevino PA-C Department Cardiology, [facility] ) Mo Fontenot DO [Primary Care Provider] - (Date & Time 08/16/2021 11:00 AM Provider Mo Fontenot DO Department [facility] ) Diet: Carb Consistent or DM2 Diet Texture: Easy to Chew Addtl Attending Provider Instructions: MEDICATION CHANGES: Your Metoprolol Succinate was reduced to 100 mg PO BID. We stopped your Gabapentin and Hydrocodone. We recommend controlling pain with Tylenol 500mg every 4-6 hours as needed for pain. You may also purchase over the counter Lidocaine Patches 4%, to be one for 12 hours and off for 12 hours. SUMMARY OF TEST RESULTS: You were admitted to hospital due to a previous fall that resulted in a Sternal fracture and rib fractures. You had significant pain and required pain c ontrolled. You had acute kidney injury due to dehydration which resolved. You became confused and this was felt to be due to too much pain medications; therefore, these were discontinued. Your gabapentin was also discontinued because of this. We have been controlling your pain with tylenol and a lidocaine patch. It was recommended you go to rehab for further assistance, but this was declined. You have been set up for home health services to come to your home. PENDING TEST RESULTS: None RECOMMENDATIONS FOR FOLLOW-UP: Please follow up with your Primary Care Provider as scheduled. Take all medications as prescribed. Please update your Primary Care Provider with your medication changes. Continue to utilize tylenol for pain. You may also use a over the counter lidocaine patch as well as Heat or ICE therapy. Recommend continued use of incentive spirometry for deep breathing exercises until chest pain has completely resolved. OTHER INSTRUCTIONS: Seek medical attention if you have: * temperature above 101 * chest pain or trouble breathing * abdominal pain, nausea, vomiting * diarrhea, dark stools or bloody stools * any unanswered questions or concerns Call 911 if symptoms are severe. Please take good care of yourself. It has been a pleasure taking care of you. Please take care of yourself. If you have any questions regarding your recent hospitalization please contact [facility] and request [facility] @ [phone]. Brenda Hurd PA-C Pending Studies at Discharge: No Stand-Alone Forms: My [facility], Smoking Cessation Medications and DC Order Prescriptions: New metoprolol succinate 100 mg tablet extended release 24 hr 100 mg PO BID Qty: 60 RF: 0 Continued Lantus Solostar U-100 Insulin 100 unit/mL (3 mL) insulin pen 13 unit SUBCUT QAM RF: 0 losartan 50 mg Tablet 50 mg PO HS RF: 0 atorvastatin 40 mg Tablet 40 mg PO HS RF: 0 spironolactone 25 mg Tablet 12.5 mg PO HS RF: 0 levothyroxine 75 mcg Tablet 75 mcg PO HS RF: 0 rizatriptan 5 mg Tablet 5 mg PO DIRECTED PRN (Reason: Migraine Headache) RF: 0 magnesium oxide 400 mg magnesium Capsule 400 mg PO HS RF: 0 PreserVision AREDS [id number] Capsule 1 cap PO HS RF: 0 insulin lispro [Humalog KwikPen Insulin] 100 unit/mL insulin pen 1 unit subcut UD Qty: 0 RF: 0 allopurinol 300 mg tablet 300 mg PO HS RF: 0 digoxin 125 mcg (0.125 mg) tablet 125 mcg PO DAILY@2000 RF: 0 epinephrine 0.3 mg/0.3 mL Auto-Injector 0.3 mg IM Q4H PRN (Reason: Allergic Reaction) RF: 0 cholecalciferol (vitamin D3) 25 mcg (1,000 unit) Tablet 25 mcg PO HS RF: 0 furosemide 40 mg tablet 20 mg PO DAILY RF: 0 Discontinued metoprolol succinate 200 mg tablet extended release 24 hr 200 mg PO BID RF: 0 hydrocodone-acetaminophen 5-325 mg tablet 1 tab PO Q6 PRN (Reason: Pain) RF: 0 gabapentin 300 mg capsule 300 mg PO HS RF: 0 Discharge Orders: Discharge Order (Routine); Ordered 08/08/21 Ordered By: Brenda Hurd Admission Data Admit Date/Time: 07/26/21 10:04 Attending Provider: Fernando Leggett Admit Provider: Ricco Sebastian Primary Care Provider: Mo Fontenot Other Providers: [place] ; Joseph Ro[facility] ; Ricco Sebastian ; Amadeo Hannah ; María Kim ; [facility] ; Brenda Hurd Other Interventions: Discharge Summary Assessment (RN) Last Done: 08/08/21 10:38 Supervising Physician Co-Signing Physician Notes Patient was seen and examined at bedside as a follow-up of acute mildly displaced and angulated fracture of the mid sternal body with trace retrosternal hemorrhage, anterior left fourth and fifth rib fracture and anterior chest wall pain and fall. Patient's hemoglobin remained stable and pain was under control. Patient was working with physical therapy while inpatient. Patient was supposed to be discharged to SNF but patient declined. Patient is being discha rged to home with home health. Agree with the examination and assessment and plan as above. Patient to follow-up with her PCP as an outpatient. Upon Exam GENERAL: Alert and oriented x3. NAD, on RA. appears ill looking and frail. HEENT: No pallor, no icterus. Pupils equal, round and reactive to light. Oral mucosa moist. Lt forehead lump noted, left cheek bruise noted--> stable/improving NECK: No JVD, no neck masses. HEART: S1 and S2 heard. Regular rate and rhythm. No murmur, no gallop. RESPIRATORY SYSTEM: Normal AP diameter. No accessory muscle use. No wheezing, no crackles. ABDOMEN: Soft, bowel sounds present, nontender, no distention. CENTRAL NERVOUS SYSTEM: No facial droop. Speech is clear. Obeys simple commands. Moves extremities. EXTREMITIES: trace BLE edema, BLE chronic skin changes noted. I have seen and examined the patient and have discussed the case with the provider above. I agree with the assessment and plan as stated. Home Health Attestation I certify that this patient is under my care and that I, or a physicians assistant terminal manager working with me, had a face to-face encounter that meets the home health [id number] encounter requirements with this patient. The encounter with the patient was in whole, or in part, for the following medical condition, which is the primary reason for home health care (list medical condition): I certify that, based on my findings, the following services are medically necessary home health services: My clinical findings support the need for the above services because: Further, I certify that my clinical findings support that this patient is homebound (i.e. absences from home require considerable and taxing effort and are for medical reasons or congregational services or infrequently or of short duration when for other reasons) because: Certification for Home Health Services: Based on the above findings, I certify that this patient is confined to the home and needs intermittent nursing home care, physical therapy and/or speech therapy or continues to need occupational therapy. The patient is under my care, and I have initiated the establishment of the plan of care. This patient will be followed by a physician who will periodically review the plan of care.
== END 2021-08-08 13:08 | disposition home health service (06) | DRG 564 ==
LOC: ED 05:26 → 2S 10:04 → SUATTDRO 10:04 → 2S 12:19 → 1E 07-27 02:37 → 2E 07-31 23:23 → 3E 08-05 12:56

== ENCOUNTER 2021-08-08 19:44 | Inpatient (IN) ==
--- NOTE | 2021-08-08 20:10 | Emergency Department Note ---
History of Present Illness General Chief complaint: Weakness Stated complaint: Weakness Time Seen by Provider: 08/08/21 19:57 Source: patient History of Present Illness Provider complaint: Generalized weakness Onset (ago): hour(s) Location: head Pain Consistency: + constant Maximum Pain Intensity: 8 Quality: + other (Weak) Exacerbated By: + other (Activity) Associated symptoms: + weakness; no chest pain, no cough, no fever/chills, no headaches, no nausea/vomiting or no shortness of breath This is a 81-year-old female presents with generalized weakness. The patient was in the hospital for a sternal fracture and rib fractures. She left AGAINST MEDICAL ADVICE earlier this morning and when she got home she states that she felt really weak. She lives with her . She was not able to care for herself. She had difficulty doing any of the activities of daily life. She therefore called the ambulance to bring her back. She denies any change in her symptoms. She does have sharp chest pain due to her multiple fractures. She denies any fever, cough or cold symptoms, shortness of breath, abdominal pain, vomiting, diarrhea or urinary symptoms. Home Medications Medication Instructions Recorded Confirmed Type atorvastatin 40 mg tablet 40 mg PO HS 12/13/20 08/08/21 History levothyroxine 75 mcg tablet 75 mcg PO HS 12/13/20 08/08/21 History losartan 50 mg tablet 50 mg PO HS 12/13/20 08/08/21 History magnesium oxide 400 mg PO HS 12/13/20 08/08/21 History rizatriptan 5 mg tablet 5 mg PO DIRECTED PRN 12/13/20 08/08/21 History spironolactone 25 mg tablet 25 mg PO HS 12/13/20 08/08/21 History allopurinol 300 mg tablet 300 mg PO HS 03/05/21 08/08/21 History cholecalciferol (vitamin D3) 25 25 mcg PO HS 03/05/21 08/08/21 History mcg (1,000 unit) tablet digoxin 125 mcg (0.125 mg) tablet 125 mcg PO DAILY@199903/05/21 08/08/21 History epinephrine 0.3 mg/0.3 mL 0.3 mg IM Q4H PRN 03/05/21 08/08/21 History injection, auto-injector vitamins A,C,J-[id number]-[id number] 14,320 1 cap PO HS 06/11/21 08/08/21 History unit-226 mg-200 unit capsule (PreserVision AREDS) insulin lispro 100 unit/mL 1 unit SUBCUT UD #0 ml 06/16/21 08/08/21 Rx subcutaneous pen (Humalog KwikPen (U-100) Insulin) insulin glargine 100 unit/mL (3 13 unit SUBCUT QAM ml 06/30/21 08/08/21 History mL) subcutaneous pen (Lantus Solostar U-100 Insulin) furosemide 40 mg tablet 20 mg PO DAILY 07/20/21 08/08/21 History metoprolol succinate 100 mg 100 mg PO BID #60 tab 08/08/21 08/08/21 Rx tablet,extended release 24 hr Allergies Allergy/AdvReac Type Severity Reaction Status Date / Time citalopram Allergy Unknown Unknown Verified 08/08/21 20:42 paroxetine Allergy Unknown Unknown Verified 08/08/21 20:42 Sulfa (Sulfonamide Allergy Unknown TOLERATES Verified 08/08/21 20:42 Antibiotics) LASIX venom-wasp protein Allergy Unknown HIVES Verified 08/08/21 20:42 celecoxib AdvReac Mild N/V Verified 08/08/21 20:42 Past Med/Surg History Medical History Afib Cerebral hemorrhage "2010 left hemiparesis" Chronic anemia Chronic combined systolic and diastolic CHF (congestive heart failure) Diabetes mellitus, type II Frequent falls hx of subarachnoid hemorrhage 2009, large retroperitoneal bleed 2014 walker dependent Gout Hematoma of rectus sheath 2015 Hemiplegia History of - cerebrovascular accident HLD (hyperlipidemia) HTN (hypertension) Hypothyroidism Pacemaker Presence of IVC filter Tachy-jodi syndrome Surgical History Status post appendectomy Status post cardiac pacemaker procedure Status post cataract extraction Status post cholecystectomy Status post hysterectomy Status post insertion of inferior vena caval filter Family History Daughter Breast cancer Mother Cancer pancreatic Father Heart disease Social History Smoking Status: Never smoker Second Hand Exposure: No; Hx Alcohol Use: No Hx Substance Use: No Preferred Language: Luxembourger Communication Ability: Effective Utility Worker Driver Required: No Beliefs That Will Affect Care: None marital status: Current Living Situation: Spouse Current Living Situation Comment: patient lives at home with , who is her primary caregiver Feels Safe at Home: Yes Assistive Devices: Walker Review of Systems See HPI for pertinent positives & negatives. and A total of 10 systems reviewed and were otherwise negative Physical Exam Vital Signs Vital Signs - 24 hr 08/08/21 19:50 08/08/21 20:10 08/08/21 21:30 Pulse Rate 79 Pulse Rate [Finger] 109 H Respiratory Rate 18 18 Blood Pressure 125/70 Blood Pressure [Left Arm] 151/75 H Blood Pressure Mean 88 Blood Pressure Mean [Left Arm] 100 Pulse Oximetry 92 93 93 Oxygen Delivery Method Room Air Room Air Room Air Sepsis Recent Fever Within 48 Hours No Sepsis New/Unexplained Change in Mental Status N/A Sepsis Action Taken by Nursing No Action Required Constitutional: Vital signs reviewed. Eyes: Pupils are equal round reactive to light. Conjunctiva are noninjected. ENT: Pharynx is clear without erythema or exudate. Mucous membranes are slightly dry. Neck supple without meningeal signs. Respiratory: Clear to auscultation bilaterally. Breath sounds are equal bilaterally. Cardiovascular: Regular rate and rhythm. No rubs or gallops. GI: Soft, nondistended and nontender. Bowel sounds are present. Musculoskeletal: Bilateral pedal edema. Wound dressing to the left lower leg. No evidence of cellulitis surrounding the area. Anterior chest wall tenderness. Integumentary: No cyanosis. or jaundice. Neurological: The patient is awake and alert. No focal deficits. Psychiatric: Normal affect. Medical Decision Making Differential Diagnosis Generalized weakness, poor conditioning, failure to thrive, anemia, infection Medical Records Attestation: I reviewed the patient's medical records. I did perform a limited focused review of portions of the patient's old chart on the electronic medical record. The patient was just discharged from the hospital today. She was admitted for a sternal fracture with multiple rib fractures and CASH. Home Medications Current Medication List: was personally reviewed by me Laboratory Data Attestation: I reviewed the patient's lab results. Result diagrams: 08/08/21 20:22 08/08/21 20:22 Lab Results 08/08/21 08/08/21 08/08/21 Range/Units 20:22 20:22 20:22 WBC 6.43 (4.8-10.8) K/uL RBC 2.93 L (4.2-5.4) M/uL Hgb 8.9 L (12.0-16.0) g/dL Hct 29.1 L (37-47) % MCV 99.3 (80-100) fL MCH 30.4 (25-34) pg MCHC 30.6 L (32-36) g/dL RDW Std Deviation 60.4 H (36.4-46.3) fL RDW Coeff of Chano 16.8 H (11.5-14.5) % Plt Count 150 (130-400) K/uL MPV 10.7 H (7.4-10.4) fL Immature Gran % (Auto) 0.2 % Neut % (Auto) 70.7 % Lymph % (Auto) 13.1 % [place] % (Auto) 13.8 % Eos % (Auto) 1.9 % Baso % (Auto) 0.3 % Neut # (Auto) 4.55 (1.4-6.5) K/uL Lymph # (Auto) 0.84 L (1.2-3.4) K/uL [place] # (Auto) 0.89 H (0.11-0.59) K/uL Eos # (Auto) 0.12 (0-0.5) K/uL Baso # (Auto) 0.02 (0-0.2) K/uL Immature Gran # (Auto) 0.01 (0.00-0.02) K/uL APTT 25.3 (21.0-31.0) Seconds PTT Ratio 0.9 Sodium 139 (136-145) mmol/L Potassium 4.6 (3.5-5.1) mmol/L Chloride 102 (98-107) mmol/L Carbon Dioxide 30 (21-32) mmol/L Anion Gap 7 (3-11) BUN 43 H (6-23) mg/dl Creatinine 0.80 (0.6-1.2) mg/dl Est Cr Clr Drug Dosing Not Reportable Est GFR ( Amer) 81.3 ml/min Est GFR (Non-Af Amer) 70.1 ml/min BUN/Creatinine Ratio 53.8 H (10-20) Glucose 122 H (70-99(Fasting)) mg/dl Calcium 9.2 (8.5-10.1) mg/dl Magnesium (1.7-2.4) mg/dl Total Bilirubin 0.7 (0.2-1.0) mg/dl AST 89 H (13-39) U/L ALT 49 (7-52) U/L Alkaline Phosphatase 221 H (34-104) U/L Troponin I High Sens 31.2 H D (0-14) pg/ml Total Protein 7.5 (6.0-8.3) gm/dl Albumin 3.7 (3.4-5.0) gm/dl Globulin 3.8 (2.5-4.0) gm/dl Albumin/Globulin Ratio 1.0 (0.9-2) SARS-CoV-2, RNA, NAAT (NEGATIVE) 08/08/21 08/08/21 Range/Units 20:22 21:25 WBC (4.8-10.8) K/uL RBC (4.2-5.4) M/uL Hgb (12.0-16.0) g/dL Hct (37-47) % MCV (80-100) fL MCH (25-34) pg MCHC (32-36) g/dL RDW Std Deviation (36.4-46.3) fL RDW Coeff of Chano (11.5-14.5) % Plt Count (130-400) K/uL MPV (7.4-10.4) fL Immature Gran % (Auto) % Neut % (Auto) % Lymph % (Auto) % Mes[place] % (Auto) % Eos % (Auto) % Baso % (Auto) % Neut # (Auto) (1.4-6.5) K/uL Lymph # (Auto) (1.2-3.4) K/uL [place] # (Auto) (0.11-0.59) K/uL Eos # (Auto) (0-0.5) K/uL Baso # (Auto) (0-0.2) K/uL Immature Gran # (Auto) (0.00-0.02) K/uL APTT (21.0-31.0) Seconds PTT Ratio Sodium (136-145) mmol/L Potassium (3.5-5.1) mmol/L Chloride (98-107) mmol/L Carbon Dioxide (21-32) mmol/L Anion Gap (3-11) BUN (6-23) mg/dl Creatinine (0.6-1.2) mg/dl Est Cr Clr Drug Dosing Est GFR ( Amer) ml/min Est GFR (Non-Af Amer) ml/min BUN/Creatinine Ratio (10-20) Glucose (70-99(Fasting)) mg/dl Calcium (8.5-10.1) mg/dl Magnesium 2.0 (1.7-2.4) mg/dl Total Bilirubin (0.2-1.0) mg/dl AST (13-39) U/L ALT (7-52) U/L Alkaline Phosphatase (34-104) U/L Troponin I High Sens (0-14) pg/ml Total Protein (6.0-8.3) gm/dl Albumin (3.4-5.0) gm/dl Globulin (2.5-4.0) gm/dl Albumin/Globulin Ratio (0.9-2) SARS-CoV-2, RNA, NAAT NEGATIVE (NEGATIVE) Imaging Data Radiologist's Impression: Chest X-Ray 08/08/21 20:08 XR chest 1V portable CLINICAL HISTORY: weakness TECHNIQUE: Single frontal radiograph of the chest was obtained. Comparison: Comparison is made to chest radiograph 07/30/2021 FINDINGS: Dual lead pacemaker is seen. Cardiomegaly is noted. Aortic arch is calcified. Prominence and cephalization of the vasculature is seen. No evidence of pleural effusion or pneumothorax. IMPRESSION: Cardiomegaly and mild pulmonary edema. ACT 112: Negative or not required by law. Electronically signed by: Parminder Odom M.D. 08/08/2021 8:43 PM ECG Data Attestation: I personally reviewed and interpreted this ECG as follows: Indication: + weakness Rate (beats per minute): 88 Rhythm: + atrial fibrillation ECG Intervals/blocks: + Left bundle branch block ECG ST segments: + T-wave inversions ECG Findings: + Other (Occasional paced rhythm) Comparison ECG Date: from (July 28, 2021) Change: no significant change MDM Narrative I did evaluate the patient as noted above. The patient left the hospital this morning against her doctor's advice. She shortly realized that she was too weak to take care of herself at home and so she called the ambulance. IV access was established. I did place an order for continuous cardiac monitoring. The monitor showed atrial fibrillation at a rate of 85 bpm. I did order and personally review the patient's 12-lead EKG as described above. There is no evidence of acute ischemia. I did order and personally reviewed the images of the patient's chest x-ray as described above. She has cardiomegaly and mild pulmonary edema. I did order a urine analysis. I did order and review the patient's blood work as noted in the electronic medical record. CBC demonstrates a white count 6.4. Hemoglobin is 8.9 and platelet count is 150. Last hemoglobin was 8.8 yesterday. Electrolytes are unremarkable. Glucose is 122. LFTs show a AST of 89. High-sensitivity troponin is slightly elevated at 31.2. She denies having any chest pain or shortness of breath. She has no acute ischemia on twelve-lead EKG. She will be hospitalized for further care and evaluation. I did discuss the case with the hospitalist and senior case manager. COVID testing is negative. Impression & Plan Generalized weakness, Elevated troponin, Chronic anemia Discharge Plan Visit Data Chief Complaint: Weakness Stated Complaint: Weakness ED Provider: Jules Up Discharge Problem: Generalized weakness, Elevated troponin, Chronic anemia Patient Disposition: Being Evaluated by Hospitalist Forms Stand Alone Forms: My [facility] Prescriptions Prescriptions: No Action Lantus Solostar U-100 Insulin 100 unit/mL (3 mL) insulin pen 13 unit SUBCUT QAM RF: 0 losartan 50 mg Tablet 50 mg PO HS RF: 0 atorvastatin 40 mg Tablet 40 mg PO HS RF: 0 spironolactone 25 mg Tablet 25 mg PO HS RF: 0 levothyroxine 75 mcg Tablet 75 mcg PO HS RF: 0 rizatriptan 5 mg Tablet 5 mg PO DIRECTED PRN (Reason: Migraine Headache) RF: 0 magnesium oxide 400 mg magnesium Capsule 400 mg PO HS RF: 0 PreserVision AREDS [id number] Capsule 1 cap PO HS RF: 0 insulin lispro [Humalog KwikPen Insulin] 100 unit/mL insulin pen 1 unit subcut UD Qty: 0 RF: 0 metoprolol succinate 100 mg tablet extended release 24 hr 100 mg PO BID Qty: 60 RF: 0 allopurinol 300 mg tablet 300 mg PO HS RF: 0 digoxin 125 mcg (0.125 mg) tablet 125 mcg PO DAILY@2000 RF: 0 epinephrine 0.3 mg/0.3 mL Auto-Injector 0.3 mg IM Q4H PRN (Reason: Allergic Reaction) RF: 0 cholecalciferol (vitamin D3) 25 mcg (1,000 unit) Tablet 25 mcg PO HS RF: 0 furosemide 40 mg tablet 20 mg PO DAILY RF: 0 Referrals Referrals: Mo Fontenot DO [Primary Care Provider] -
[2021-08-08 20:34] LABS: Basophils # (auto) 0.02 K/uL (0-0.2); Basophils % (auto) 0.3 %; Eosinophils # (auto) 0.12 K/uL (0-0.5); Eosinophils % (auto) 1.9 %; Hematocrit (blood only) 29.1 % (37-47); Hemoglobin 8.9 g/dL (12.0-16.0); Immature Granulocytes # (auto) 0.01 K/uL (0.00-0.02); Immature Granulocytes % (auto) 0.2 %; Lymphocytes # (auto) 0.84 K/uL (1.2-3.4); Lymphocytes % (auto) 13.1 %; Mean Corpuscular Hemoglobin 30.4 pg (25-34); Mean Corpuscular Hgb Conc 30.6 g/dL (32-36); Mean Corpuscular Volume 99.3 fL (80-100); Mean Platelet Volume 10.7 fL (7.4-10.4); Monocytes # (auto) 0.89 K/uL (0.11-0.59); Monocytes % (auto) 13.8 %; Neutrophils # (auto) 4.55 K/uL (1.4-6.5); Neutrophils % (auto) 70.7 %; Platelet Count 150 K/uL (130-400); RDW Coefficient of Variation 16.8 % (11.5-14.5); RDW Standard Deviation 60.4 fL (36.4-46.3); Red Blood Count 2.93 M/uL (4.2-5.4); White Blood Count 6.43 K/uL (4.8-10.8)
--- NOTE | 2021-08-08 20:44 | XRay Report ---
XR chest 1V portable CLINICAL HISTORY: weakness TECHNIQUE: Single frontal radiograph of the chest was obtained. Comparison: Comparison is made to chest radiograph 07/30/2021 FINDINGS: Dual lead pacemaker is seen. Cardiomegaly is noted. Aortic arch is calcified. Prominence and cephaliz ation of the vasculature is seen. No evidence of pleural effusion or pneumothorax. IMPRESSION: Cardiomegaly and mild pulmonary edema. ACT 112: Negative or not required by law. Electronically signed by: Parminder Odom M.D. 08/08/2021 8:43 PM
[2021-08-08 21:03] LABS: Alanine Aminotransferase 49 U/L (7-52); Albumin Level 3.7 gm/dl (3.4-5.0); Alkaline Phosphatase 221 U/L (34-104); Anion Gap 7 (3-11); Aspartate Aminotransferase 89 U/L (13-39); BUN Creatinine Ratio 53.8 (10-20); Bilirubin,Total 0.7 mg/dl (0.2-1.0); Blood Urea Nitrogen 43 mg/dl (6-23); Calcium 9.2 mg/dl (8.5-10.1); Carbon Dioxide 30 mmol/L (21-32); Chloride 102 mmol/L (98-107); Est GFR (African American) 81.3 ml/min; Est GFR (Non-African American) 70.1 ml/min; Globulin 3.8 gm/dl (2.5-4.0); Glucose 122 mg/dl (70-99(Fasting)); Potassium 4.6 mmol/L (3.5-5.1); Sodium 139 mmol/L (136-145); Total Protein 7.5 gm/dl (6.0-8.3)
[2021-08-08 21:04] LABS: Troponin I High Sensitivity 31.2 pg/ml (0-14)
[2021-08-08 21:53] LABS: Partial Thromboplastin Ratio 0.9; Partial Thromboplastin Time 25.3 Seconds (21.0-31.0)
[2021-08-08] MEDS ORDERED: METOPROLOL SUCC 50MG EXT REL TAB PO STA (21:58)
--- NOTE | 2021-08-08 21:58 | History & Physical Report ---
Date of Service August 08, 2021 Assessment & Plan (1) Encephalopathy: Plan: Encephalopathy hx functional disability Patient noted to be lethargic on my exam. Rule out UTI Asymptomatic troponin elevation chronic diastolic heart failure, some congestion on CXR without symptoms. EF 55% to 59%, TTE 2020), patient on the dry side history of SSS sp PPM, not on anticoagulation secondary to recurrent falls Valvular heart disease (mild AR, moderate MR/TR) Hypertension, slightly elevated DM2, insulin requiring, suboptimal control as of recent hemoglobin A1c of 10.19 June 2021 chronic anemia, hemoglobin at baseline Hypothyroidism, recent TSH slightly elevated Functional disability OBS Medical telemetry given troponin elevation Follow troponin Check UA PT OT eval Basal insulin, ISS BG goal 1 10-1 40, carb count coverage Social service RE discharge planning (patient now agreeable to placement) DVT prophylaxis. SCDs Re: History ICH/recent retrosternal hemorrhage Full code Patient requests for her daughter to be given periodic updates. Ms. Chris Linton, contact #[phone]. Text document was generated using [email or web address] voice recognition software. It may contain grammatical or spelling errors. Kindly contact undersigned for clarification of any documentation item in question. History of Present Illness Chief Complaint: Weakness Primary Care Provider: Mo Fontenot, History obtained from patient and records. Medical history significant for chronic diastolic heart failure EF 55% to 60%, TTE 2021), history of SSS sp PPM, off anticoagulation because of history of frequent falls/rectus sheath hematoma/subarachnoid hemorrhage in the past, valvular heart disease (mild AR, moderate MR/TR) HTN, DM 2 insulin requiring, chronic anemia (baseline hemoglobin 8-9 ), hypothyroidism. Last confinement July 26 to 2021 for sternal/rib fractures with retrosternal hemorrhage secondary to fall. No operative management as per [facility] [place]. Patient noted to be sensitive to narcotics during confinement. SNF recommended by PT OT but patient /family declined. Patient discharged home yesterday. Generalized weakness at home. Patient realized that she is not able to care for herself. Patient denies chest pain, SOB, abdominal pain. Patient returned to ER for evaluation. MEDICAL HISTORY: As above. SURGERIES: Appendectomy, cholecystectomy, hysterectomy, IVC filter placement, cataract surgery, some back surgery, wrist surgery, kidney stone procedure, Achilles tendon surgery, breast biopsy, and pacemaker placement, FAMILY HISTORY: Diabetes, heart disease, and high blood pressure. PERSONAL SOCIAL HISTORY: Nonsmoker. No chronic intake of alcoholic beverages. 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 Allergies Allergy/AdvReac Type Severity Reaction Status Date / Time citalopram Allergy Unknown Unknown Verified 08/08/21 20:42 paroxetine Allergy Unknown Unknown Verified 08/08/21 20:42 Sulfa (Sulfonamide Allergy Unknown TOLERATES Verified 08/08/21 20:42 Antibiotics) LASIX venom-wasp protein Allergy Unknown HIVES Verified 08/08/21 20:42 celecoxib AdvReac Mild N/V Verified 08/08/21 20:42 Home Medications Medication Instructions Recorded Confirmed Type atorvastatin 40 mg tablet 40 mg PO HS 12/13/20 08/08/21 History levothyroxine 75 mcg tablet 75 mcg PO HS 12/13/20 08/08/21 History losartan 50 mg tablet 50 mg PO HS 12/13/20 08/08/21 History magnesium oxide 400 mg PO HS 12/13/20 08/08/21 History rizatriptan 5 mg tablet 5 mg PO DIRECTED PRN 12/13/20 08/08/21 History spironolactone 25 mg tablet 25 mg PO HS 12/13/20 08/08/21 History allopurinol 300 mg tablet 300 mg PO HS 03/05/21 08/08/21 History cholecalciferol (vitamin D3) 25 25 mcg PO HS 03/05/21 08/08/21 History mcg (1,000 unit) tablet digoxin 125 mcg (0.125 mg) tablet 125 mcg PO DAILY@199903/05/21 08/08/21 History epinephrine 0.3 mg/0.3 mL 0.3 mg IM Q4H PRN 03/05/21 08/08/21 History injection, auto-injector vitamins A,C,Y-povq-ulnsjw 14,320 1 cap PO HS 06/11/21 08/08/21 History unit-226 mg-200 unit capsule (PreserVision AREDS) insulin lispro 100 unit/mL 1 unit SUBCUT UD #0 ml 06/16/21 08/08/21 Rx subcutaneous pen (Humalog KwikPen (U-100) Insulin) insulin glargine 100 unit/mL (3 13 unit SUBCUT QAM ml 06/30/21 08/08/21 History mL) subcutaneous pen (Lantus Solostar U-100 Insulin) furosemide 40 mg tablet 20 mg PO DAILY 07/20/21 08/08/21 History metoprolol succinate 100 mg 100 mg PO BID #60 tab 08/08/21 08/08/21 Rx tablet,extended release 24 hr Past Med/Surg History Medical History Afib Cerebral hemorrhage "2009 left hemiparesis" Chronic anemia Chronic combined systolic and diastolic CHF (congestive heart failure) Diabetes mellitus, type II Frequent falls hx of subarachnoid hemorrhage 2009, large retroperitoneal bleed 2014 walker dependent Gout Hematoma of rectus sheath 2015 Hemiplegia History of - cerebrovascular accident HLD (hyperlipidemia) HTN (hypertension) Hypothyroidism Pacemaker Presence of IVC filter Tachy-jodi syndrome Surgical History Status post appendectomy Status post cardiac pacemaker procedure Status post cataract extraction Status post cholecystectomy Status post hysterectomy Status post insertion of inferior vena caval filter Family History Daughter Breast cancer Mother Cancer pancreatic Father Heart disease Social History Smoking Status: Never smoker Second Hand Exposure: No; Hx Alcohol Use: No Hx Substance Use: No Preferred Language: Sinhala Communication Ability: Effective 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: No Beliefs That Will Affect Care: None marital status: Current Living Situation: Spouse Current Living Situation Comment: patient lives at home with , who is her primary caregiver Other Information That Helps Us Care for You: No Feels Safe at Home: Yes Safety Concerns: Feels Safe At This Time Assistive Devices: Glasses Review of Systems Review of Systems: Could not be reliably obtained secondary to lethargy Physical Exam Physical Exam: GENERAL: Slightly uncomfortable, frail, oriented to month and year, no respiratory distress SKIN: Pallor, warm HEENT: Pale palpebral conjunctivae, L ptosis, fading ecchymoses, left face; dry buccal mucosa NECK : Supple, no tenderness CHEST : CTA, no tenderness HEART : Irregular, tachycardic, systolic murmur ABDOMEN: Some distention, nontender EXTREMITIES : Minimal LE swelling, no LE tenderness NEUROLOGIC : Lethargic, left ptosis, mild hearing impairment, gait and stance n ot assessed Results & Data Results & Data ([facility]) Vital Signs (Past 12 Hours) Vital Signs Pulse Pulse Resp BP BP Pulse Ox 08/08/21 21:30 109 H 18 151/75 H 93 08/08/21 20:10 93 08/08/21 19:50 79 18 125/70 92 Laboratory Results Laboratory Results WBC 6.43 K/uL (4.8-10.8) 08/08/21 20: RBC 2.93 M/uL (4.2-5.4) L 08/08/21 20:22 Hgb 8.9 g/dL (12.0-16.0) L 08/08/21 20: Hct 29.1 % (37-47) L 08/08/21: MCV 99.3 fL (80-100) 08/08/21 20: MCH 30.4 pg (25-34) 08/08/21: MCHC 30.6 g/dL (32-36) L 08/08/21: RDW Std Deviation 60.4 fL (36.4-46.3) H 08/08/21: RDW Coeff of Chano 16.8 % (11.5-14.5) H 08/08/21: Plt Count 150 K/uL (130-400) 08/08/21 20: MPV 10.7 fL (7.4-10.4) H 08/08/21 20: Immature Gran % (Auto) 0.2 % 08/08/21: Neut % (Auto) 70.7 % 08/08/21: Lymph % (Auto) 13.1 % 08/08/21: [place] % (Auto) 13.8 % 08/08/21 20: Eos % (Auto) 1.9 % 08/08/21: Baso % (Auto) 0.3 % 08/08/21: Neut # (Auto) 4.55 K/uL (1.4-6.5) 08/08/21 20: Lymph # (Auto) 0.84 K/uL (1.2-3.4) L 08/08/21: Hamb[place] # (Auto) 0.89 K/uL (0.11-0.59) H 08/08/21 20:22 Eos # (Auto) 0.12 K/uL (0-0.5) 08/08/21 20:22 Baso # (Auto) 0.02 K/uL (0-0.2) 08/08/21 20: Immature Gran # (Auto) 0.01 K/uL (0.00-0.02) 08/08/21 20:22 APTT 25.3 Seconds (21.0-31.0) 08/08/21 20:22 PTT Ratio 0.9 08/08/21 20:22 Sodium 139 mmol/L (136-145) 08/08/21 20: Potassium 4.6 mmol/L (3.5-5.1) 08/08/21: Chloride 102 mmol/L (98-107) 08/08/21: Carbon Dioxide 30 mmol/L (21-32) 08/08/21 20: Anion Gap 7 (3-11) 08/08/21: BUN 43 mg/dl (6-23) H 08/08/21 20: Creatinine 0.80 mg/dl (0.6-1.2) 08/08/21: Est Cr Clr Drug Dosing Not Reportable 08/08/21: Est GFR ( Amer) 81.3 ml/min 08/08/21 20: Est GFR (Non-Af Amer) 70.1 ml/min 08/08/21 20: BUN/Creatinine Ratio 53.8 (10-20) H 08/08/21 20: Glucose 122 mg/dl (70-99(Fasting)) H 08/08/21 20: Calcium 9.2 mg/dl (8.5-10.1) 08/08/21: Magnesium 2.0 mg/dl (1.7-2.4) 08/08/21 20: Total Bilirubin 0.7 mg/dl (0.2-1.0) 08/08/21 20:22 AST 89 U/L (13-39) H 08/08/21 20:22 ALT 49 U/L (7-52) 08/08/21 20:22 Alkaline Phosphatase 221 U/L (34-104) H 08/08/21 20:22 Troponin I High Sens 31.2 pg/ml (0-14) H D 08/08/21 20:22 Total Protein 7.5 gm/dl (6.0-8.3) 08/08/21 20:22 Albumin 3.7 gm/dl (3.4-5.0) 08/08/21 20:22 Globulin 3.8 gm/dl (2.5-4.0) 08/08/21 20:22 Albumin/Globulin Ratio 1.0 (0.9-2) 08/08/21 20:22 SARS-CoV-2, RNA, NAAT NEGATIVE (NEGATIVE) 08/08/21 21:25 Impressions Chest X-Ray 08/08/21 20:08 XR chest 1V portable CLINICAL HISTORY: weakness TECHNIQUE: Single frontal radiograph of the chest was obtained. Comparison: Comparison is made to chest radiograph 07/30/2021 FINDINGS: Dual lead pacemaker is seen. Cardiomegaly is noted. Aortic arch is calcified. Prominence and cephalization of the vasculature is seen. No evidence of pleural effusion or pneumothorax. IMPRESSION: Cardiomegaly and mild pulmonary edema. ACT 112: Negative or not required by law. Electronically signed by: Parminder Odom M.D. 08/08/2021 8:[address] head initial read: Mild central atrophyand mild to moderate periventricular and deep white matter lowdensities consistent with chronic small vessel disease and/or senescent changes, unchanged since previous. No acute large vessel infarct or intracranial hemorrhage is seen. There is a small left frontal scalp hematoma, decreased in size since previous. No newscalp hematoma or skull fracture is seen. There is opacification of the left sphenoid sinus, similar to previous suggesting chronic sinusitis per the remaining sinuses and mastoids are within normal limits. EKG as per my interpretation: Rate 90, A. fib, LAD, LAFB, T wave flattening lateral leads, PVCs
[2021-08-09] MEDS ORDERED: PROMETHAZINE HCL 6.25 MG in SODIUM CHLORIDE 0.9% 50 ML IV PRN (00:49)
[2021-08-09] MEDS ORDERED: GLUCOSE 40% GEL 15 GM TUBE PO PRN (00:49)
[2021-08-09] MEDS ORDERED: DEXTROSE 50% 50 ML SYRINGE IV PRN (00:49)
[2021-08-09] MEDS ORDERED: GLUCOSE 10 TABS/TUBE PO PRN (00:49)
[2021-08-09] MEDS ORDERED: CARBOHYDRATES FOR HYPOGLYCEMIA PO PRN (00:49)
[2021-08-09] MEDS ORDERED: GLUCAGON FOR INJ 1 MG VIAL SQ PRN (00:49)
[2021-08-09] MEDS: INSULIN ASPART PER UNIT SC SCH ×5 (00:53→21:59)
[2021-08-09] MEDS: ACETAMINOPHEN 325 MG TAB PO PRN ×2 (03:50→17:52)
[2021-08-09] MEDS: LEVOTHYROXINE SODIUM 75 MCG TABLET PO SCH (03:51)
[2021-08-09 05:17] LABS: Appearance Urine Clear (Clear); Bacteria Urine Automated 2+ (Negative); Bilirubin Urine Negative (Negative); Blood Urine Trace (Negative); Cast Urine Automated 0 /lpf (0-5); Color Urine Yellow; Epithelial Cell Urine Auto 0-5 /lpf (0-5); Glucose Urine UA Negative (Negative); Ketones Urine Negative (Negative); Leukocyte Esterase Urine 1+ (Negative); Nitrite Urine Positive (Negative); Specific Gravity Urine 1.016 (1.000-1.030); Urobilinogen Urine Negative (Negative); WBC Urine Automated >30 /hpf (0-5); pH Urine 7.5 (4.5-7.5)
[2021-08-09 05:19] LABS: Protein Urine 1+ (Negative)
[2021-08-09 05:34] LABS: Amphetamines+Metham, Urine Neg (Neg); Barbiturates, Urine Neg (Neg); Benzodiazepine, Urine Neg (Neg); Cocaine, Urine Neg (Neg); MDMA (Ecstacy), Urine Neg (Neg); Methadone, Urine Neg (Neg); Opiate, Urine Neg (Neg); Phencyclidine, Urine Neg (Neg)
--- NOTE | 2021-08-09 07:14 | CT Scan Report ---
CT SCAN OF THE BRAIN WITHOUT IV CONTRAST CLINICAL HISTORY: Lethargy. COMPARISON STUDY: CT of the brain dated 07/27/2021. TECHNIQUE: Unenhanced axial CT scan of the brain is performed from the vertex to the skull base. A do se lowering technique was utilized adhering to the principles of ALARA. CT DOSE: 537.48 mGy.cm FINDINGS: Brain parenchyma: There are age-related involutional changes noting moderate subcortical and periven tricular microangiopathic change. There is no hemorrhage, mass effect, or evidence of acute territori al ischemia by CT criteria. Mclain-white matter differentiation is preserved. No extra-axial fluid esdras ection is seen. Ventricles, sulci, cisterns: Prominent secondary to involutional change. Intracranial vasculature: There is atherosclerotic calcification of the cavernous carotid and vertebr al arteries. Calvarium: Unremarkable. Sinuses and mastoids: There is subtotal opacification of left sphenoid sinus. The remaining visualize d paranasal sinuses are clear. The mastoid air cells are well pneumatized. Orbits: The bony orbits are grossly intact. There are bilateral ocular lens implants. IMPRESSION: There is no hemorrhage, mass effect, or evidence of acute territorial ischemia by CT henry live. ACT 112: Negative or not required by law. Electronically signed by: Isauro Mercado M.D. 08/09/2021 7:13 AM
[2021-08-09] MEDS: CEFEPIME 2,000 MG in SYRINGE 0 ML IV SCH (09:00)
[2021-08-09] MEDS: FUROSEMIDE 20 MG TAB PO SCH (09:01)
[2021-08-09] MEDS: INSULIN GLARGINE SOLOSTAR 100 UNITS/ML 3 ML PEN SC SCH (09:02)
[2021-08-09] MEDS: METOPROLOL SUCC 50MG EXT REL TAB PO SCH ×2 (09:02→21:43)
[2021-08-09 09:22] LABS: BUN Creatinine Ratio 52.2 (10-20); Calcium 9.1 mg/dl (8.5-10.1); Creatinine Clr Calc Pharmacy 52.3 ml/min; Est GFR (Non-African American) 82.8 ml/min; Potassium 4.4 mmol/L (3.5-5.1)
[2021-08-09 09:51] LABS: Basophils # (auto) 0.03 K/uL (0-0.2); Basophils % (auto) 0.6 %; Eosinophils % (auto) 2.1 %; Hematocrit (blood only) 28.1 % (37-47); Hemoglobin 8.6 g/dL (12.0-16.0); Immature Granulocytes # (auto) 0.01 K/uL (0.00-0.02); Immature Granulocytes % (auto) 0.2 %; Lymphocytes # (auto) 0.87 K/uL (1.2-3.4); Lymphocytes % (auto) 18.2 %; Mean Corpuscular Hemoglobin 29.7 pg (25-34); Mean Corpuscular Hgb Conc 30.6 g/dL (32-36); Mean Corpuscular Volume 96.9 fL (80-100); Mean Platelet Volume 10.9 fL (7.4-10.4); Monocytes # (auto) 0.55 K/uL (0.11-0.59); Monocytes % (auto) 11.5 %; Neutrophils # (auto) 3.23 K/uL (1.4-6.5); Neutrophils % (auto) 67.4 %; Platelet Count 143 K/uL (130-400); RDW Coefficient of Variation 16.9 % (11.5-14.5); RDW Standard Deviation 59.9 fL (36.4-46.3); White Blood Count 4.79 K/uL (4.8-10.8)
--- NOTE | 2021-08-09 10:17 | Electrocardiogram Report ---
Test Reason : Blood Pressure : / mmHG Vent. Rate : 088 BPM Atrial Rate : 000 BPM P-R Int : 000 ms QRS Dur : 122 ms QT Int : 382 ms P-R-T Axes : 000 -19 159 degrees QTc Int : 462 ms Atrial fibrillation with occasional ventricular-paced complexes and with premature ventricular or víctor rrantly conducted complexes Non-specific intra-ventricular conduction delay Marked ST abnormality, possible lateral subendocardial injury Abnormal ECG When compared with ECG of 28-JUL-2021 17:09, Electronic ventricular pacemaker now present Confirmed by Matthew Neely ([id number]) on 08/09/2021 10:17:45 AM Referred By: REFERRED SELF Confirmed By:Matthew Neely
--- NOTE | 2021-08-09 11:12 | Hospitalist Progress Note ---
Date of Service August 09, 2021 Assessment & Plan (1) Ambulatory dysfunction: (2) UTI (urinary tract infection): (3) Generalized weakness: (4) Elevated troponin: Plan: This is a 81-year-old female who has significant past history of insulin- dependent T2DM uncontrolled, PAF not anticoagulated on warfarin, history of sinus node dysfunction status post pacemaker placement in 2009, chronic HFpEF, peripheral neuropathy, hypothyroidism, HTN, HLD who presents to ED after experiencing being discharged from our facility and inability to care for self at home/generalized weakness; therefore, she returned to the ED. Ambulatory dysfunction Generalized weakness Acute UTI Patient admitted under observation to med telemetry Continue IV cefepime Await urine culture PT OT consulted Patient now agreeable for rehab Chronic HFpEF Atrial fibrillation History of TBS status post PPM 2009 HTN Elevated troponin Recent echo 07/26/2021 revealed EF 55 to 60%, grade 2 diastolic dysfunction, mild AR, moderate MR, moderate TR, severe left atrial enlargement, pulm hypertension present with PASP 41 mmHg Continue metoprolol, Lasix, losartan, Aldactone, digoxin and statin Patient denies chest pain Cycle troponins, previous elevated during recent admission Pacemaker interrogation during last hospitalization currently euvolemic Recent mechanical fall Anterior left fourth and fifth rib fracture Acute mildly displaced angulated fracture of mid sternal body with trace retrosternal hemorrhage Patient denies any further chest pain or difficulty breathing Remains on room air Continues to have mild left facial ecchymoses which is resolving Uncontrolled T2DM Lantus/NovoLog per protocol A1c on 07/05/21 10.7 Chronic anemia Hemoglobin 8.6 DVT ppx: SCD/TEDS due to recent fall, hx of SDH, trace retrosternal hemorrhage Dispo: admitted to med tele, PT/OT consulted, pt needs rehab placement FULL CODE Pt was seen and examined in collaboration with Dr. Lawson, please see addendum Admission and Anticipated Discharge Date Admission Date: August 08, 2021 Supervising Physician Co-Signing Physician Notes Attending Addendum: care coordinated with WILMA Hurd please refer to her notes for full details, I agree with her notes, assessment and plan patient seen and examined, records reviewed by myself as well Chris Lawson MD Subjective Patient was seen and examined in room 252 bed 1. Follow-up UTI. Of significance patient was recently hospitalized and discharged last evening on 08/08/2021 secondary to subsequent visit for mechanical fall, sternal fracture, rib fracture, pain control and ambulatory dysfunction. It was recommended the patient go to rehab; however, patient declined. She went home with family and when she got home she had a very difficult time getting around. Due to unable to maintain herself at home family opted to bring her back to ER. She now recognizes that she needs further assistance and is agreeable to rehab placement. On admission she was also found to have a urinary tract infection. Currently she is upset regarding her current room situation and is very, "small." Otherwise she denies any fever, chills, sweats, lightheadedness, dizziness, chest pain, shortness of breath, nausea, vomiting, abdominal pain. Overall she feels down due to being back in the hospital. Review of Systems Review of Systems: All systems reviewed & are unremarkable except as noted in HPI & below Physical Exam Physical Exam: Gen: Chronically ill-appearing female, poor eye contact, dysthymic affect, NAD, A&O x3 HEENT: Normocephalic, left facial bruising continues to improve conjunctivae moist, sclerae anicteric, mucous membranes moist. Lung: Clear to Auscultation bilaterally, no wheezes/rales/rhonchi Heart: Regular rate, regular rhythm, no murmurs, rubs, or gallops Abdomen: Soft, NT, ND +BS x 4 Extremities: No edema, venous stasis changes, dressing to left pretibial area CDI Skin: Warm, no rash, negative turgor. : purwic in place, foul smelling urine noted, urine yellow in canister Results & Data Results & [facility] ([facility]) Vital Signs (Past 12 Hours) Vital Signs Temp Pulse Pulse Resp BP Pulse Ox 08/09/21 08:02 97 H 08/09/21 07:33 36.4 C L 88 18 147/73 H 97 08/09/21 02:53 36.5 C 85 18 151/76 H 96 08/08/21 23:40 90 08/08/21 23:00 36.6 C 89 16 153/77 H 96 Laboratory Results Short CBC 08/08/21 08/09/21 Range/Units 20:22 08:10 WBC 6.43 4.79 L (4.8-10.8) K/uL Hgb 8.9 L 8.6 L (12.0-16.0) g/dL Hct 29.1 L 28.1 L (37-47) % Plt Count 150 143 (130-400) K/uL BMP 08/08/21 08/09/21 20:22 08:10 Sodium 139 137 Potassium 4.6 4.4 Chloride 102 103 Carbon Dioxide 30 27 BUN 43 H 36 H Creatinine 0.80 0.69 Glucose 122 H 225 H Calcium 9.2 9.1 Liver Function 08/08/21 Range/Units 20:22 Total Bilirubin 0.7 (0.2-1.0) mg/dl AST 89 H (13-39) U/L ALT 49 (7-52) U/L Alkaline Phosphatase 221 H (34-104) U/L Albumin 3.7 (3.4-5.0) gm/dl Urine 08/08/21 Range/Units 04:00 Urine Color Yellow Urine Appearance Clear (Clear) Urine pH 7.5 (4.5-7.5) Ur Specific [place] 1.016 (1.000-1.030) Urine Protein 1+ H (Negative) Urine Glucose (UA) Negative (Negative) Diagnostic Findings Chest X-Ray 08/08/21 20:08 XR chest 1V portable CLINICAL HISTORY: weakness TECHNIQUE: Single frontal radiograph of the chest was obtained. Comparison: Comparison is made to chest radiograph 07/30/2021 FINDINGS: Dual lead pacemaker is seen. Cardiomegaly is noted. Aortic arch is calcified. Prominence and cephalization of the vasculature is seen. No evidence of pleural effusion or pneumothorax. IMPRESSION: Cardiomegaly and mild pulmonary edema. ACT 112: Negative or not required by law. Electronically signed by: Parminder Odom M.D. 08/08/2021 8:[address] 08/08/21 21:56 CT SCAN OF THE BRAIN WITHOUT IV CONTRAST CLINICAL HISTORY: Lethargy. COMPARISON STUDY: CT of the brain dated 07/27/2021. TECHNIQUE: Unenhanced axial CT scan of the brain is performed from the vertex to the skull base. A dose lowering technique was utilized adhering to the princip les of NAVA. CT DOSE: 537.48 mGy.cm FINDINGS: Brain parenchyma: There are age-related involutional changes noting moderate subcortical and periventricular microangiopathic change. There is no hemorrhage, mass effect, or evidence of acute territorial ischemia by CT criteria. Mclain- white matter differentiation is preserved. No extra-axial fluid collection is seen. Ventricles, sulci, cisterns: Prominent secondary to involutional change. Intracranial vasculature: There is atherosclerotic calcification of the cavernous carotid and vertebral arteries. Calvarium: Unremarkable. Sinuses and mastoids: There is subtotal opacification of left sphenoid sinus. The remaining visualized paranasal sinuses are clear. The mastoid air cells are well pneumatized. Orbits: The bony orbits are grossly intact. There are bilateral ocular lens implants. IMPRESSION: There is no hemorrhage, mass effect, or evidence of acute territorial ischemia by CT criteria. ACT 112: Negative or not required by law. Electronically signed by: Isauro Mercado M.D. 08/09/2021 7:13 AM Medications Administered Current Inpatient Medications Acetaminophen (Acetaminophen 325 Mg Tab) 650 mg PO Q4H PRN PRN Reason: Pain or Fever Stop: 09/08/21 00:48 Last Admin: 08/09/21 03:50 Dose: 650 mg Documented by: Allopurinol (Allopurinol 300 Mg Tab) 300 mg PO HS ANGELINE Stop: 09/08/21 20:59 Atorvastatin Calcium (Atorvastatin 40 Mg Tab) 40 mg PO HS ANGELINE Stop: 09/08/21 20:59 Dextrose (Dextrose 50% 50 Ml Syringe) 25 - 50 ml IV UD PRN; Protocol PRN Reason: Hypoglycemia Protocol Stop: 09/08/21 00:48 Digoxin (Digoxin 0.125 Mg Tab) 0.125 mg PO DAILY@1600 ANGELINE Stop: 09/08/21 15:59 Furosemide (Furosemide 20 Mg Tab) 20 mg PO DAILY ANGELINE Stop: 09/08/21 08:59 Last Admin: 08/09/21 09:01 Dose: 20 mg Documented by: Glucagon (Glucagon For Inj 1 Mg Vial) 1 mg SQ UD PRN; Protocol PRN Reason: Hypoglycemia Protocol Stop: 09/08/21 00:48 Glucose (Glucose 10 Tabs/Tube) 4 - 8 tabs PO UD PRN; Protocol PRN Reason: Hypoglycemia Protocol Stop: 09/08/21 00:48 Glucose (Glucose 40% Gel 15 Gm Tube) 15 - 30 gm PO UD PRN; Protocol PRN Reason: Hypoglycemia Protocol Stop: 09/08/21 00:48 Promethazine HCl 6.25 mg/ (Sodium Chloride) 50.25 mls @ 201 mls/hr IV Q6H PRN PRN Reason: Nausea And Vomiting Stop: 09/08/21 00:48 Cefepime HCl 2,000 mg/ Syringe 20 mls @ 5 mls/min IV Q24H [facility]; Protocol Stop: 08/19/21 06:59 Last Admin: 08/09/21 09:00 Dose: 5 mls/min Documented by: Insulin Aspart (Insulin Aspart Per Unit) 0 units SC ACHS [facility] Stop: 09/08/21 00:48 Last Admin: 08/09/21 09:05 Dose: 3 units Documented by: Insulin Glargine (Insulin Glargine Solostar 100 Units/Ml 3 Ml Pen) 10 units SC DAILY [facility] Stop: 09/08/21 08:59 Last Admin: 08/09/21 09:02 Dose: 10 units Documented by: Levothyroxine Sodium (Levothyroxine Sodium 75 Mcg Tablet) 75 mcg PO DAILYBB [facility] Stop: 09/08/21 06:29 Last Admin: 08/09/21 03:51 Dose: 75 mcg Documented by: Losartan Potassium (Losartan Potassium 50 Mg Tab) 50 mg PO HS [facility] Stop: 09/08/21 20:59 Magnesium Oxide (Magnesium Oxide 400 Mg Tab) 400 mg PO [facility] Stop: 09/08/21 20:59 Metoprolol Succinate (Metoprolol Succ 50mg Ext Rel Tab) 100 mg PO BID [facility] Stop: 09/08/21 08:59 Last Admin: 08/09/21 09:02 Dose: 100 mg Documented by: Miscellaneous (Carbohydrates For Hypoglycemia ) 15 - 30 gm PO UD PRN PRN Reason: Hypoglycemia Protocol Stop: 09/08/21 00:48 Multivitamins/Minerals (Cerovite Adv Formula Tab) 1 tab PO [facility] Stop: 09/08/21 20:59 Spironolactone (Spironolactone 25 Mg Tab) 25 mg PO [facility] Stop: 09/08/21 20:59 ECG Rate (beats per minute): 88 Rhythm: atrial fibrillation Additional Comments: marked st abnormality, possible lateral subendocardial injury
[2021-08-09] MEDS: DIGOXIN 0.125 MG TAB PO SCH (17:19)
[2021-08-09] MEDS: LOSARTAN POTASSIUM 50 MG TAB PO SCH (21:42)
[2021-08-09] MEDS: MAGNESIUM OXIDE 400 MG TAB PO SCH (21:42)
[2021-08-09] MEDS: SPIRONOLACTONE 25 MG TAB PO SCH (21:43)
[2021-08-09] MEDS: ATORVASTATIN 40 MG TAB PO SCH (21:44)
[2021-08-09] MEDS: CEROVITE ADV FORMULA TAB PO SCH (21:44)
[2021-08-09] MEDS: allopurinoL 300 MG TAB PO SCH (21:44)
[2021-08-10] MEDS: ACETAMINOPHEN 325 MG TAB PO PRN ×2 (04:09→14:10)
[2021-08-10] MEDS: LEVOTHYROXINE SODIUM 75 MCG TABLET PO SCH (04:10)
[2021-08-10] MEDS ORDERED: MICONAZOLE NITRATE POWDER 43 GM EXT PRN (06:03)
[2021-08-10] MEDS: CEFEPIME 2,000 MG in SYRINGE 0 ML IV SCH (06:32)
[2021-08-10 06:59] LABS: Albumin Level 3.5 gm/dl (3.4-5.0); Bilirubin Direct 0.2 mg/dl (0-0.2); Bilirubin,Total 0.6 mg/dl (0.2-1.0); Total Protein 6.8 gm/dl (6.0-8.3)
[2021-08-10] MEDS: INSULIN ASPART PER UNIT SC SCH ×4 (08:19→21:19)
[2021-08-10] MEDS: INSULIN GLARGINE SOLOSTAR 100 UNITS/ML 3 ML PEN SC SCH (08:20)
[2021-08-10] MEDS: FUROSEMIDE 20 MG TAB PO SCH (08:27)
[2021-08-10] MEDS: METOPROLOL SUCC 50MG EXT REL TAB PO SCH ×2 (08:28→21:16)
--- NOTE | 2021-08-10 10:29 | Hospitalist Progress Note ---
Date of Service August 10, 2021 Assessment & Plan (1) Ambulatory dysfunction: (2) UTI (urinary tract infection): (3) Generalized weakness: (4) Elevated troponin: Plan: This is a 81-year-old female who has significant past history of insulin- dependent T2DM uncontrolled, PAF not anticoagulated on warfarin, history of sinus node dysfunction status post pacemaker placement in 2009, chronic HFpEF, peripheral neuropathy, hypothyroidism, HTN, HLD who presents to ED after experiencing being discharged from our facility and inability to care for self at home/generalized weakness; therefore, she returned to the ED. Ambulatory dysfunction Generalized weakness Acute UTI Patient admitted, transfer level of care from telemetry to [facility] on 08/09 Continue IV cefepime Urine culture growing greater than 100,000 gram-negative bacilli PT OT consulted Patient now agreeable for rehab Chronic HFpEF Atrial fibrillation History of TBS status post PPM 2009 HTN Elevated troponin Recent echo 07/26/2021 revealed EF 55 to 60%, grade 2 diastolic dysfunction, mild AR, moderate MR, moderate TR, severe left atrial enlargement, pulm hypertension present with PASP 41 mmHg Continue metoprolol, Lasix, losartan, Aldactone, digoxin and statin Patient denies chest pain Troponin is decreased Pacemaker interrogation during last hospitalization currently euvolemic Recent mechanical fall Anterior left fourth and fifth rib fracture Acute mildly displaced angulated fracture of mid sternal body with trace retrosternal hemorrhage Patient denies any further chest pain or difficulty breathing Remains on room air Continues to have mild left facial ecchymoses which is resolving Uncontrolled T2DM Lantus/NovoLog per protocol A1c on 07/05/21 10.7 Blood sugar stable, 134 this morning Chronic anemia Hemoglobin 8.6 DVT ppx: SCD/TEDS due to recent fall, hx of SDH, trace retrosternal hemorrhage Dispo: admitted to medical, PT/OT consulted, pt needs rehab placement FULL CODE Pt was seen and examined in collaboration with Dr. Lawson, please see addendum Admission and Anticipated Discharge Date Admission Date: August 09, 2021 Supervising Physician Co-Signing Physician Notes Attending Addendum: care coordinated with WILMA Hurd please refer to her notes for full details, I agree with her notes, assessment and plan patient seen and examined, records reviewed by myself as well Chris Lawson MD Subjective Patient was seen and examined in room 252 bed 1. Follow-up UTI. Of significance patient was recently hospitalized and discharged last evening on 08/08/2021 secondary to subsequent visit for mechanical fall, sternal fracture, rib fracture, pain control and ambulatory dysfunction. It was recommended the patient go to rehab; however, patient declined. She went home with family and when she got home she had a very difficult time getting around. Due to unable to maintain herself at home family opted to bring her back to ER. She now recognizes that she needs further assistance and is agreeable to rehab placement. On admission she was also found to have a urinary tract infection. She feels well this morning and offers no acute complaints. She continues to request a bigger room. She denies fever, chills, sweats, lightheadedness, dizziness, chest pain, shortness of breath, nausea, vomiting, abdominal pain. She ate almost all of her breakfast. Review of Systems Review of Systems: All systems reviewed & are unremarkable except as noted in HPI & below Physical Exam Physical Exam: Gen: Chronically ill-appearing female, affect slightly improved today, NAD, A&O x3 HEENT: Normocephalic, left facial bruising continues to improve conjunctivae moist, sclerae anicteric, mucous membranes moist. Lung: Clear to Auscultation bilaterally, no wheezes/rales/rhonchi Heart: Regular rate, regular rhythm, no murmurs, rubs, or gallops Abdomen: Soft, NT, ND +BS x 4 Extremities: No edema, venous stasis changes, dressing to left pretibial area C DI Skin: Warm, no rash, negative turgor. : purwic in place, urine yellow in canister Results & Data Results & Data ([facility]) Vital Signs (Past 12 Hours) Vital Signs Temp Pulse Resp BP Pulse Ox 08/10/21 08:30 83 125/76 08/10/21 07:55 79/55 L 08/10/21 07:48 36.4 C L 96 H 18 139/78 91 08/09/21 23:25 36.8 C 83 18 136/72 92 Laboratory Results Short CBC 08/08/21 08/10/21 Range/Units 20:22 06:00 AST 89 H 72 H (13-39) U/L Liver Function 08/10/21 Range/Units 06:00 Total Bilirubin 0.6 (0.2-1.0) mg/dl Direct Bilirubin 0.2 (0-0.2) mg/dl AST 72 H (13-39) U/L ALT 49 (7-52) U/L Alkaline Phosphatase 211 H (34-104) U/L Albumin 3.5 (3.4-5.0) gm/dl Urine culture growing greater than 100,000 gram-negative bacilli Medications Administered Current Inpatient Medications Acetaminophen (Acetaminophen 325 Mg Tab) 650 mg PO Q4H PRN PRN Reason: Pain or Fever Stop: 09/08/21 00:48 Last Admin: 08/10/21 04:09 Dose: 650 mg Documented by: Allopurinol (Allopurinol 300 Mg Tab) 300 mg PO HS ANGELINE Stop: 09/08/21 20:59 Last Admin: 08/09/21 21:44 Dose: 300 mg Documented by: Atorvastatin Calcium (Atorvastatin 40 Mg Tab) 40 mg PO HS [facility] Stop: 09/08/21 20:59 Last Admin: 08/09/21 21:44 Dose: 40 mg Documented by: Dextrose (Dextrose 50% 50 Ml Syringe) 25 - 50 ml IV UD PRN; Protocol PRN Reason: Hypoglycemia Protocol Stop: 09/08/21 00:48 Digoxin (Digoxin 0.125 Mg Tab) 0.125 mg PO DAILY@1600 [facility] Stop: 09/08/21 15:59 Last Admin: 08/09/21 17:19 Dose: 0.125 mg Documented by: Furosemide (Furosemide 20 Mg Tab) 20 mg PO DAILY ANG[facility]INE Stop: 09/08/21 08:59 Last Admin: 08/10/21 08:27 Dose: 20 mg Documented by: Glucagon (Glucagon For Inj 1 Mg Vial) 1 mg SQ UD PRN; Protocol PRN Reason: Hypoglycemia Protocol Stop: 09/08/21 00:48 Glucose (Glucose 10 Tabs/Tube) 4 - 8 tabs PO UD PRN; Protocol PRN Reason: Hypoglycemia Protocol Stop: 09/08/21 00:48 Glucose (Glucose 40% Gel 15 Gm Tube) 15 - 30 gm PO UD PRN; Protocol PRN Reason: Hypoglycemia Protocol Stop: 09/08/21 00:48 Promethazine HCl 6.25 mg/ (Sodium Chloride) 50.25 mls @ 201 mls/hr IV Q6H PRN PRN Reason: Nausea And Vomiting Stop: 09/08/21 00:48 Cefepime HCl 2,000 mg/ Syringe 20 mls @ 5 mls/min IV Q24H [facility]; Protocol Stop: 08/19/21 06:59 Last Admin: 08/10/21 06:32 Dose: 5 mls/min Documented by: Insulin Aspart (Insulin Aspart Per Unit) 0 units SC ACHS [facility] Stop: 09/08/21 00:48 Last Admin: 08/10/21 08:19 Dose: 3 units Documented by: Insulin Glargine (Insulin Glargine Solostar 100 Units/Ml 3 Ml Pen) 10 units SC DAILY [facility] Stop: 09/08/21 08:59 Last Admin: 08/10/21 08:20 Dose: 10 units Documented by: Levothyroxine Sodium (Levothyroxine Sodium 75 Mcg Tablet) [facility] Stop: 09/08/21 06:29 Last Admin: 08/10/21 04:10 Dose: 75 mcg Documented by: Losartan Potassium (Losartan Potassium 50 Mg Tab) 50 mg PO [facility] Stop: 09/08/21 20:59 Last Admin: 08/09/21 21:42 Dose: 50 mg Documented by: Magnesium Oxide (Magnesium Oxide 400 Mg Tab) 400 mg PO [facility] Stop: 09/08/21 20:59 Last Admin: 08/09/21 21:42 Dose: 400 mg Documented by: Metoprolol Succinate (Metoprolol Succ 50mg Ext Rel Tab) 100 mg PO BID [facility] Stop: 09/08/21 08:59 Last Admin: 08/10/21 08:28 Dose: 100 mg Documented by: Miconazole Nitrate (Miconazole Nitrate Powder 43 Gm) 1 appln EXT PRN PRN PRN Reason: Affected Skin Folds Stop: 09/09/21 06:02 Miscellaneous (Carbohydrates For Hypoglycemia ) 15 - 30 gm PO UD PRN PRN Reason: Hypoglycemia Protocol Stop: 09/08/21 00:48 Multivitamins/Minerals (Cerovite Adv Formula Tab) 1 tab PO [facility] Stop: 09/08/21 20:59 Last Admin: 08/09/21 21:44 Dose: 1 tab Documented by: Spironolactone (Spironolactone 25 Mg Tab) 25 mg PO [facility] Stop: 09/08/21 20:59 Last Admin: 08/09/21 21:43 Dose: 25 mg Documented by:
[2021-08-10] MEDS: DIGOXIN 0.125 MG TAB PO SCH (17:22)
[2021-08-10] MEDS: SPIRONOLACTONE 25 MG TAB PO SCH (21:16)
[2021-08-10] MEDS: allopurinoL 300 MG TAB PO SCH (21:17)
[2021-08-10] MEDS: CEROVITE ADV FORMULA TAB PO SCH (21:17)
[2021-08-10] MEDS: LOSARTAN POTASSIUM 50 MG TAB PO SCH (21:17)
[2021-08-10] MEDS: MAGNESIUM OXIDE 400 MG TAB PO SCH (21:18)
[2021-08-10] MEDS: ATORVASTATIN 40 MG TAB PO SCH (21:18)
[2021-08-11] MEDS: LEVOTHYROXINE SODIUM 75 MCG TABLET PO SCH (06:02)
[2021-08-11] MEDS: CEFEPIME 2,000 MG in SYRINGE 0 ML IV SCH (06:02)
[2021-08-11 08:09] LABS: Basophils # (auto) 0.05 K/uL (0-0.2); Eosinophils # (auto) 0.17 K/uL (0-0.5); Eosinophils % (auto) 3.4 %; Hematocrit (blood only) 28.1 % (37-47); Hemoglobin 8.5 g/dL (12.0-16.0); Immature Granulocytes # (auto) 0.02 K/uL (0.00-0.02); Immature Granulocytes % (auto) 0.4 %; Lymphocytes # (auto) 0.89 K/uL (1.2-3.4); Mean Corpuscular Hemoglobin 29.7 pg (25-34); Mean Corpuscular Hgb Conc 30.2 g/dL (32-36); Mean Corpuscular Volume 98.3 fL (80-100); Mean Platelet Volume 10.7 fL (7.4-10.4); Monocytes # (auto) 0.85 K/uL (0.11-0.59); Monocytes % (auto) 17.2 %; Neutrophils # (auto) 2.96 K/uL (1.4-6.5); Platelet Count 157 K/uL (130-400); RDW Coefficient of Variation 16.6 % (11.5-14.5); RDW Standard Deviation 60.1 fL (36.4-46.3); Red Blood Count 2.86 M/uL (4.2-5.4); White Blood Count 4.94 K/uL (4.8-10.8)
[2021-08-11 08:28] LABS: BUN Creatinine Ratio 32.4 (10-20); Creatinine Clr Calc Pharmacy 50.8 ml/min; Est GFR (African American) 93.9 ml/min; Potassium 4.1 mmol/L (3.5-5.1)
[2021-08-11] MEDS: FUROSEMIDE 20 MG TAB PO SCH (09:09)
[2021-08-11] MEDS: METOPROLOL SUCC 50MG EXT REL TAB PO SCH ×2 (09:09→21:27)
[2021-08-11] MEDS: INSULIN ASPART PER UNIT SC SCH ×4 (09:10→21:22)
[2021-08-11] MEDS: INSULIN GLARGINE SOLOSTAR 100 UNITS/ML 3 ML PEN SC SCH (10:07)
[2021-08-11] MEDS: cefTRIAXone SODIUM 1,000 MG in DEXTROSE 5% 50 ML IV SCH (10:10)
[2021-08-11] MEDS: ADVANCED PROBIOTIC 1250 MG CAPSULE PO SCH (11:25)
[2021-08-11] MEDS: DIGOXIN 0.125 MG TAB PO SCH (16:03)
[2021-08-11] MEDS ORDERED: FUROSEMIDE 20 MG TAB PO ONE (19:53)
--- NOTE | 2021-08-11 19:57 | Hospitalist Progress Note ---
Date of Service August 11, 2021 Assessment & Plan (1) Ambulatory dysfunction: (2) UTI (urinary tract infection): (3) Generalized weakness: (4) Elevated troponin: Plan: per WILMA Marie'sofia notes with addendum: This is a 81-year-old female who has significant past history of insulin- dependent T2DM uncontrolled, PAF not anticoagulated on warfarin, history of sinus node dysfunction status post pacemaker placement in 2009, chronic HFpEF, peripheral neuropathy, hypothyroidism, HTN, HLD who presents to ED after experiencing being discharged from our facility and inability to care for self at home/generalized weakness; therefore, she returned to the ED. Ambulatory dysfunction Generalized weakness Acute UTI Patient admitted, transfer level of care from telemetry to [facility] on 08/09 Continue IV cefepime Urine culture growing greater than 100,000 gram-negative bacilli PT OT consulted Patient now agreeable for rehab 08/11 Urine culture: E coli change Abx to Ceftriaxone IV Chronic HFpEF Atrial fibrillation History of TBS status post PPM 2009 HTN Elevated troponin Recent echo 07/26/2021 revealed EF 55 to 60%, grade 2 diastolic dysfunction, mild AR, moderate MR, moderate TR, severe left atrial enlargement, pulm hypertension present with PASP 41 mmHg Continue metoprolol, Lasix, losartan, Aldactone, digoxin and statin Patient denies chest pain Troponin is decreased Pacemaker interrogation during last hospitalization 08/11 (+) leg edema additional Lasix 20mg po ordered Recent mechanical fall Anterior left fourth and fifth rib fracture Acute mildly displaced angulated fracture of mid sternal body with trace retrosternal hemorrhage Patient denies any further chest pain or difficulty breathing Remains on room air Continues to have mild left facial ecchymoses which is resolving Uncontrolled T2DM Lantus/NovoLog per protocol A1c on 07/05/21 10.7 Blood sugar stable, 134 this morning Chronic anemia Hemoglobin 8.6 DVT ppx: SCD/TEDS due to recent fall, hx of SDH, trace retrosternal hemorrhage Dispo: admitted to medical, PT/OT consulted, pt needs rehab placement FULL CODE Pt was seen and examined in collaboration with Dr. Lawson, please see addendum Admission and Anticipated Discharge Date Admission Date: August 09, 2021 Subjective ff up for UTI, weakness, etc seen sitting up in bed, comfortable states she feels better overall no chest pain, dyspnea, palpitations, dizziness no abdominal pain, nausea, fever/chills no other symptoms Review of Systems Review of Systems: all noted and negative except for above Physical Exam Physical Exam: General- oriented x 3, not in distress, speaks in sentences with no effort or accessory muscle use Eyes- anicteric Neck- no JVD Lungs- clear BS bilaterally, no rales/wheezes Heart- normal rate, regular rhythm; no murmurs Abdomen- normal bowel sounds, nondistended, soft, nontender Extremities- mild pretibial edema, no calf tenderness Neuro- alert, oriented x 3; no gross focal neurologic deficits Skin- warm & dry Results & Data Results & Data ([facility]) Vital Signs (Past 12 Hours) Vital Signs Temp Pulse Pulse Resp BP Pulse Ox 08/11/21 16:03 85 08/11/21 15:21 36.9 C 85 16 144/76 H 97 all noted and reviewed including below
[2021-08-11] MEDS: ACETAMINOPHEN 325 MG TAB PO PRN (21:22)
[2021-08-11] MEDS: CEROVITE ADV FORMULA TAB PO SCH (21:25)
[2021-08-11] MEDS: allopurinoL 300 MG TAB PO SCH (21:25)
[2021-08-11] MEDS: ATORVASTATIN 40 MG TAB PO SCH (21:25)
[2021-08-11] MEDS: LOSARTAN POTASSIUM 50 MG TAB PO SCH (21:26)
[2021-08-11] MEDS: MAGNESIUM OXIDE 400 MG TAB PO SCH (21:26)
[2021-08-11] MEDS: SPIRONOLACTONE 25 MG TAB PO SCH (21:26)
[2021-08-12] MEDS: LEVOTHYROXINE SODIUM 75 MCG TABLET PO SCH (06:02)
[2021-08-12 08:47] LABS: Creatinine Clr Calc Pharmacy 53.8 ml/min; Est GFR (African American) 96.9 ml/min; Est GFR (Non-African American) 83.6 ml/min
[2021-08-12] MEDS: ADVANCED PROBIOTIC 1250 MG CAPSULE PO SCH (09:02)
[2021-08-12] MEDS: INSULIN GLARGINE SOLOSTAR 100 UNITS/ML 3 ML PEN SC SCH (09:02)
[2021-08-12] MEDS: INSULIN ASPART PER UNIT SC SCH ×4 (09:02→21:03)
[2021-08-12] MEDS: METOPROLOL SUCC 50MG EXT REL TAB PO SCH ×2 (09:08→20:52)
[2021-08-12] MEDS: cefTRIAXone SODIUM 1,000 MG in DEXTROSE 5% 50 ML IV SCH (09:08)
[2021-08-12] MEDS: FUROSEMIDE 20 MG TAB PO SCH (09:24)
--- NOTE | 2021-08-12 13:17 | Hospitalist Progress Note ---
Date of Service August 12, 2021 Assessment & Plan (1) Ambulatory dysfunction: (2) UTI (urinary tract infection): (3) Generalized weakness: (4) Elevated troponin: Plan: per WILMA Marie'sofia notes with addendum: This is a 81-year-old female who has significant past history of insulin- dependent T2DM uncontrolled, PAF not anticoagulated on warfarin, history of sinus node dysfunction status post pacemaker placement in 2009, chronic HFpEF, peripheral neuropathy, hypothyroidism, HTN, HLD who presents to ED after experiencing being discharged from our facility and inability to care for self at home/generalized weakness; therefore, she returned to the ED. Ambulatory dysfunction Generalized weakness Acute UTI Patient admitted, transfer level of care from telemetry to [facility] on 08/09 Continue IV cefepime Urine culture growing greater than 100,000 gram-negative bacilli PT OT consulted Patient now agreeable for rehab 08/12 Urine culture: E coli changed Abx to Ceftriaxone IV Chronic HFpEF Atrial fibrillation History of TBS status post PPM 2009 HTN Elevated troponin Recent echo 07/26/2021 revealed EF 55 to 60%, grade 2 diastolic dysfunction, mild AR, moderate MR, moderate TR, severe left atrial enlargement, pulm hypertension present with PASP 41 mmHg Continue metoprolol, Lasix, losartan, Aldactone, digoxin and statin Patient denies chest pain Troponin is decreased Pacemaker interrogation during last hospitalization 08/12 Euvolemic today Recent mechanical fall Anterior left fourth and fifth rib fracture Acute mildly displaced angulated fracture of mid sternal body with trace retrosternal hemorrhage Patient denies any further chest pain or difficulty breathing Remains on room air Continues to have mild left facial ecchymoses which is resolving Uncontrolled T2DM Lantus/NovoLog per protocol A1c on 07/05/21 10.7 Blood sugar stable Chronic anemia Hemoglobin 8.6 DVT ppx: SCD/TEDS due to recent fall, hx of SDH, trace retrosternal hemorrhage Dispo: admitted to medical, PT/OT consulted, pt needs rehab placement FULL CODE Pt was seen and examined in collaboration with Dr. Lawson, please see addendum Admission and Anticipated Discharge Date Admission Date: August 09, 2021 Subjective ff up for UTI, weakness, etc. Seen resting in chair, having lunch, comfortable, in good spirits States she feels improved overall no Abdominal pain, fevers or chills, nausea vomiting no chest pain, dyspnea, palpitations, dizziness no other symptoms Review of Systems Review of Systems: all noted and negative except for above Physical Exam Physical Exam: General- oriented x 3, not in distress, speaks in sentences with no effort or accessory muscle use Eyes- anicteric Neck- no JVD Lungs- clear BS bilaterally, no rales/wheezes Heart- normal rate, regular rhythm; no murmurs Abdomen- normal bowel sounds, nondistended, soft, nontender Extremities- no pretibial edema, no calf tenderness Neuro- alert, oriented x 3; no gross focal neurologic deficits Skin- warm & dry Results & Data Results & Data ([facility]) Vital Signs (Past 12 Hours) Vital Signs Temp Pulse Resp BP Pulse Ox 08/12/21 07:35 36.6 C 50 L 16 145/78 H 95 all noted and reviewed including below
[2021-08-12] MEDS: DIGOXIN 0.125 MG TAB PO SCH (17:30)
[2021-08-12] MEDS: MAGNESIUM OXIDE 400 MG TAB PO SCH (20:50)
[2021-08-12] MEDS: CEROVITE ADV FORMULA TAB PO SCH (20:51)
[2021-08-12] MEDS: allopurinoL 300 MG TAB PO SCH (20:51)
[2021-08-12] MEDS: ATORVASTATIN 40 MG TAB PO SCH (20:51)
[2021-08-12] MEDS: SPIRONOLACTONE 25 MG TAB PO SCH (20:51)
[2021-08-12] MEDS: LOSARTAN POTASSIUM 50 MG TAB PO SCH (20:52)
[2021-08-13] MEDS: LEVOTHYROXINE SODIUM 75 MCG TABLET PO SCH (05:54)
[2021-08-13] MEDS: METOPROLOL SUCC 50MG EXT REL TAB PO SCH ×2 (09:38→20:56)
[2021-08-13] MEDS: INSULIN GLARGINE SOLOSTAR 100 UNITS/ML 3 ML PEN SC SCH (09:38)
[2021-08-13] MEDS: FUROSEMIDE 20 MG TAB PO SCH (09:38)
[2021-08-13] MEDS: ADVANCED PROBIOTIC 1250 MG CAPSULE PO SCH (09:38)
[2021-08-13] MEDS: INSULIN ASPART PER UNIT SC SCH ×4 (09:39→20:55)
[2021-08-13] MEDS: cefTRIAXone SODIUM 1,000 MG in DEXTROSE 5% 50 ML IV SCH (09:42)
--- NOTE | 2021-08-13 12:19 | Hospitalist Progress Note ---
Date of Service August 13, 2021 Assessment & Plan (1) Ambulatory dysfunction: (2) UTI (urinary tract infection): (3) Generalized weakness: (4) Elevated troponin: Plan: per WILMA Marie'sofia notes with addendum: This is a 81-year-old female who has significant past history of insulin- dependent T2DM uncontrolled, PAF not anticoagulated on warfarin, history of sinus node dysfunction status post pacemaker placement in 2009, chronic HFpEF, peripheral neuropathy, hypothyroidism, HTN, HLD who presents to ED after experiencing being discharged from our facility and inability to care for self at home/generalized weakness; therefore, she returned to the ED. Ambulatory dysfunction Generalized weakness Acute UTI Patient admitted, transfer level of care from telemetry to [facility] on 08/09 Continue IV cefepime Urine culture growing greater than 100,000 gram-negative bacilli PT OT consulted Patient now agreeable for rehab 08/13 Urine culture: E coli continue Ceftriaxone IV Chronic HFpEF Atrial fibrillation History of TBS status post PPM 2009 HTN Elevated troponin Recent echo 07/26/2021 revealed EF 55 to 60%, grade 2 diastolic dysfunction, mild AR, moderate MR, moderate TR, severe left atrial enlargement, pulm hypertension present with PASP 41 mmHg Continue metoprolol, Lasix, losartan, Aldactone, digoxin and statin Patient denies chest pain Troponin is decreased Pacemaker interrogation during last hospitalization 08/13 Euvolemic today Recent mechanical fall Anterior left fourth and fifth rib fracture Acute mildly displaced angulated fracture of mid sternal body with trace retrosternal hemorrhage Patient denies any further chest pain or difficulty breathing Remains on room air Continues to have mild left facial ecchymoses which is resolving PT/OT eval Uncontrolled T2DM Lantus/NovoLog per protocol A1c on 07/05/21 10.7 Blood sugar 180-190 Chronic anemia Hemoglobin 8.6 DVT ppx: SCD/TEDS due to recent fall, hx of SDH, trace retrosternal hemorrhage Dispo: admitted to medical, PT/OT consulted, pt needs rehab placement FULL CODE Admission and Anticipated Discharge Date Admission Date: August 09, 2021 Subjective ff up for UTI, etc seen resting in bedside chair, comfortable smiling states she feels fine overall no chest pain, dyspnea, palpitations, dizziness no leg pain no abdominal pain, nausea/vomiting, fever/chills no other symptoms Review of Systems Review of Systems: all noted and negative except for above Physical Exam Physical Exam: General- oriented x 3, not in distress, speaks in sentences with no effort or accessory muscle use Eyes- anicteric Neck- no JVD Lungs- mild rales on the left base, clear on the right Heart- normal rate, regular rhythm; no murmurs Abdomen- normal bowel sounds, nondistended, soft, nontender Extremities- trace pretibial edema, no calf tenderness Neuro- alert, oriented x 3; no gross focal neurologic deficits Skin- warm & dry Results & Data Results & Data ([facility]) Vital Signs (Past 12 Hours) Vital Signs Temp Pulse Resp BP Pulse Ox 08/13/21 07:13 36.6 C 87 18 159/79 H 93 all noted and reviewed including below
[2021-08-13] MEDS: DIGOXIN 0.125 MG TAB PO SCH (17:57)
[2021-08-13] MEDS: MAGNESIUM OXIDE 400 MG TAB PO SCH (20:56)
[2021-08-13] MEDS: SPIRONOLACTONE 25 MG TAB PO SCH (20:56)
[2021-08-13] MEDS: allopurinoL 300 MG TAB PO SCH (20:56)
[2021-08-13] MEDS: CEROVITE ADV FORMULA TAB PO SCH (20:56)
[2021-08-13] MEDS: ATORVASTATIN 40 MG TAB PO SCH (20:56)
[2021-08-13] MEDS: LOSARTAN POTASSIUM 50 MG TAB PO SCH (20:57)
[2021-08-13] MEDS: ACETAMINOPHEN 325 MG TAB PO PRN (21:05)
[2021-08-14] MEDS: LEVOTHYROXINE SODIUM 75 MCG TABLET PO SCH (06:05)
[2021-08-14 07:31] LABS: Creatinine Clr Calc Pharmacy 54.7 ml/min; Est GFR (African American) 97.4 ml/min
[2021-08-14] MEDS: INSULIN GLARGINE SOLOSTAR 100 UNITS/ML 3 ML PEN SC SCH (09:07)
[2021-08-14] MEDS: INSULIN ASPART PER UNIT SC SCH ×4 (09:07→20:49)
[2021-08-14] MEDS: FUROSEMIDE 20 MG TAB PO SCH (09:08)
[2021-08-14] MEDS: METOPROLOL SUCC 50MG EXT REL TAB PO SCH ×2 (09:09→20:04)
[2021-08-14] MEDS: ADVANCED PROBIOTIC 1250 MG CAPSULE PO SCH (09:09)
[2021-08-14] MEDS: cefTRIAXone SODIUM 1,000 MG in DEXTROSE 5% 50 ML IV SCH (09:09)
[2021-08-14] MEDS: DIGOXIN 0.125 MG TAB PO SCH (15:27)
--- NOTE | 2021-08-14 17:34 | Hospitalist Progress Note ---
Date of Service August 14, 2021 delayed entry date of service noted above Assessment & Plan (1) Ambulatory dysfunction: (2) UTI (urinary tract infection): (3) Generalized weakness: (4) Elevated troponin: Plan: per WILMA Marie'sofia notes with addendum: This is a 81-year-old female who has significant past history of insulin- dependent T2DM uncontrolled, PAF not anticoagulated on warfarin, history of sinus node dysfunction status post pacemaker placement in 2009, chronic HFpEF, peripheral neuropathy, hypothyroidism, HTN, HLD who presents to ED after experiencing being discharged from our facility and inability to care for self at home/generalized weakness; therefore, she returned to the ED. Ambulatory dysfunction Generalized weakness Acute UTI Patient admitted, transfer level of care from telemetry to [facility] on 08/09 Continue IV cefepime Urine culture growing greater than 100,000 gram-negative bacilli PT OT consulted Patient now agreeable for rehab 08/14 Urine culture: E coli continue Ceftriaxone IV Chronic HFpEF Atrial fibrillation History of TBS status post PPM 2009 HTN Elevated troponin Recent echo 07/26/2021 revealed EF 55 to 60%, grade 2 diastolic dysfunction, mild AR, moderate MR, moderate TR, severe left atrial enlargement, pulm hypertension present with PASP 41 mmHg Continue metoprolol, Lasix, losartan, Aldactone, digoxin and statin Patient denies chest pain Troponin is decreased Pacemaker interrogation during last hospitalization 5/ Euvolemic today Recent mechanical fall Anterior left fourth and fifth rib fracture Acute mildly displaced angulated fracture of mid sternal body with trace retrosternal hemorrhage Patient denies any further chest pain or difficulty breathing Remains on room air Continues to have mild left facial ecchymoses which is resolving PT/OT eval Uncontrolled T2DM Lantus/NovoLog per protocol A1c on 07/05/21 10.7 Blood sugar 180-190 Chronic anemia Hemoglobin 8.6 DVT ppx: SCD/TEDS due to recent fall, hx of SDH, trace retrosternal hemorrhage Dispo: admitted to medical, PT/OT consulted, pt needs rehab placement FULL CODE Admission and Anticipated Discharge Date Admission Date: August 09, 2021 Subjective ff up for UTI, etc seen resting in chair, comfortable states she feels fine overall no chest pain, dyspnea, palpitations, dizziness no urinary symptoms, fever/chills, abdominal pain, etc no other symptoms Review of Systems Review of Systems: all noted and negative except for above Physical Exam Physical Exam: General- oriented x 3, not in distress, speaks in sentences with no effort or accessory muscle use Eyes- anicteric Neck- no JVD Lungs- clear breath sounds bilaterally, no rales/wheezes Heart- normal rate, regular rhythm; no murmurs Abdomen- normal bowel sounds, nondistended, soft, no cva tenderness Extremities- no pretibial edema, no calf tenderness Neuro- alert, oriented x 3; no gross focal neurologic deficits Skin- warm & dry Results & Data Results & Data ([facility]) Vital Signs (Past 12 Hours) Vital Signs Temp Pulse Pulse Resp BP BP Pulse Ox 08/14/21 15:27 74 08/14/21 14:53 37.4 C 77 18 124/67 98 08/14/21 11:54 36.8 C 90 16 136/87 99 08/14/21 07:51 18 96 08/14/21 07:42 36.9 C 104 H 20 131/86 91 all noted and reviewed including below
[2021-08-14] MEDS: allopurinoL 300 MG TAB PO SCH (20:04)
[2021-08-14] MEDS: MAGNESIUM OXIDE 400 MG TAB PO SCH (20:04)
[2021-08-14] MEDS: CEROVITE ADV FORMULA TAB PO SCH (20:04)
[2021-08-14] MEDS: LOSARTAN POTASSIUM 50 MG TAB PO SCH (20:04)
[2021-08-14] MEDS: ATORVASTATIN 40 MG TAB PO SCH (20:04)
[2021-08-14] MEDS: SPIRONOLACTONE 25 MG TAB PO SCH (20:04)
[2021-08-14] MEDS: ACETAMINOPHEN 325 MG TAB PO PRN (20:48)
[2021-08-15] MEDS: LEVOTHYROXINE SODIUM 75 MCG TABLET PO SCH (05:40)
[2021-08-15] MEDS: INSULIN ASPART PER UNIT SC SCH ×2 (09:11→12:36)
[2021-08-15] MEDS: INSULIN GLARGINE SOLOSTAR 100 UNITS/ML 3 ML PEN SC SCH (09:12)
[2021-08-15] MEDS: METOPROLOL SUCC 50MG EXT REL TAB PO SCH (09:13)
[2021-08-15] MEDS: ADVANCED PROBIOTIC 1250 MG CAPSULE PO SCH (09:13)
[2021-08-15] MEDS: FUROSEMIDE 20 MG TAB PO SCH (09:13)
[2021-08-15] MEDS: cefTRIAXone SODIUM 1,000 MG in DEXTROSE 5% 50 ML IV SCH (11:06)
[2021-08-15] MEDS ORDERED: FUROSEMIDE 20 MG TAB PO STA (12:20)
--- NOTE | 2021-08-15 13:12 | Hospitalist Progress Note ---
Date of Service August 15, 2021 Assessment & Plan (1) Ambulatory dysfunction: (2) UTI (urinary tract infection): (3) Generalized weakness: (4) Elevated troponin: Plan: per WILMA Marie'sofia notes with addendum: This is a 81-year-old female who has significant past history of insulin- dependent T2DM uncontrolled, PAF not anticoagulated on warfarin, history of sinus node dysfunction status post pacemaker placement in 2009, chronic HFpEF, peripheral neuropathy, hypothyroidism, HTN, HLD who presents to ED after experiencing being discharged from our facility and inability to care for self at home/generalized weakness; therefore, she returned to the ED. Ambulatory dysfunction Generalized weakness Acute UTI Patient admitted, transfer level of care from telemetry to [facility] on 08/09 Continue IV cefepime Urine culture growing greater than 100,000 gram-negative bacilli PT OT consulted Patient now agreeable for rehab 08/15 Urine culture: E coli given Ceftriaxone IV x 5 days needs Cefuroxime for another 5 days Chronic HFpEF Atrial fibrillation History of TBS status post PPM 2009 HTN Elevated troponin Recent echo 07/26/2021 revealed EF 55 to 60%, grade 2 diastolic dysfunction, mild AR, moderate MR, moderate TR, severe left atrial enlargement, pulm hypertension present with PASP 41 mmHg Continue metoprolol, Lasix, losartan, Aldactone, digoxin and statin Patient denies chest pain Troponin is decreased Pacemaker interrogation during last hospitalization 08/15 Euvolemic today Recent mechanical fall Anterior left fourth and fifth rib fracture Acute mildly displaced angulated fracture of mid sternal body with trace retrosternal hemorrhage Patient denies any further chest pain or difficulty breathing Remains on room air Continues to have mild left facial ecchymoses which is resolving PT/OT eval: recommend SNF Uncontrolled T2DM Lantus/NovoLog A1c on 07/05/21 10.7 Chronic anemia Hemoglobin 8.6 DVT ppx: SCD/TEDS due to recent fall, hx of SDH, trace retrosternal hemorrhage Dispo: d/c to SNF ff up with PCP in 1 week Admission and Anticipated Discharge Date Admission Date: August 09, 2021 Subjective ff up for UTI, etc seen resting in bed, comfortable states she is concerned that if she goes to SNF, she will be remain there permanently explained to patient that once she gets stronger, she can return home patient smiling, agreeable for discharge no chest pain, dyspnea, palpitations, dizziness no other symptoms Review of Systems Review of Systems: all noted and negative except for above Physical Exam Physical Exam: General- oriented x 3, not in distress, speaks in sentences with no effort or accessory muscle use Eyes- anicteric Neck- no JVD Lungs- clear breath sounds bilaterally, no rales/wheezes Heart- normal rate, regular rhythm; no murmurs Abdomen- normal bowel sounds, nondistended, soft, nontender Extremities- mild pretibial edema, no calf tenderness Neuro- alert, oriented x 3; no gross focal neurologic deficits Skin- warm & dry Results & Data Results & Data ([facility]) Vital Signs (Past 12 Hours) Vital Signs Temp Pulse Resp BP BP Pulse Ox 08/15/21 12:14 36.4 C L 101 H 16 136/87 146/83 H 97 08/15/21 08:16 36.4 C L 101 H 16 146/83 H 97 all noted and reviewed including below
--- NOTE | 2021-08-15 13:21 | Discharge Summary ---
Date of Service August 15, 2021 Admission HPI Per Admitting Provider History obtained from patient and records. Medical history significant for chronic diastolic heart failure EF 55% to 60%, TTE 2021), history of SSS sp PPM, off anticoagulation because of history of frequent falls/rectus sheath hematoma/subarachnoid hemorrhage in the past, valvular heart disease (mild AR, moderate MR/TR) HTN, DM 2 insulin requiring, chronic anemia (baseline hemoglobin 8-9 ), hypothyroidism. Last confinement July 26 to 2021 for sternal/rib fractures with retrosternal hemorrhage secondary to fall. No operative management as per [facility] trauma service. Patient noted to be sensitive to narcotics during confinement. SNF recommended by PT OT but patient /family declined. Patient discharged home yesterday. Generalized weakness at home. Patient realized that she is not able to care for herself. Patient denies chest pain, SOB, abdominal pain. Patient returned to ER for evaluation. MEDICAL HISTORY: As above. SURGERIES: Appendectomy, cholecystectomy, hysterectomy, IVC filter placement, cataract surgery, some back surgery, wrist surgery, kidney stone procedure, Achilles tendon surgery, breast biopsy, and pacemaker placement, FAMILY HISTORY: Diabetes, heart disease, and high blood pressure. PERSONAL SOCIAL HISTORY: Nonsmoker. No chronic intake of alcoholic beverages. 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 Admission Exam Per Admitting Provider GENERAL: Slightly uncomfortable, frail, oriented to month and year, no respiratory distress SKIN: Pallor, warm HEENT: Pale palpebral conjunctivae, L ptosis, fading ecchymoses, left face; dry buccal mucosa NECK : Supple, no tenderness CHEST : CTA, no tenderness HEART : Irregular, tachycardic, systolic murmur ABDOMEN: Some distention, nontender EXTREMITIES : Minimal LE swelling, no LE tenderness NEUROLOGIC : Lethargic, left ptosis, mild hearing impairment, gait and stance not assessed Principal Diagnosis ALTERED MENTAL STATUS URINARY TRACT INFECTION Discharge Exam General- oriented x 3, not in distress, speaks in sentences with no effort or accessory muscle use Eyes- anicteric Neck- no JVD Lungs- clear breath sounds bilaterally, no rales/wheezes Heart- normal rate, regular rhythm; no murmurs Abdomen- normal bowel sounds, nondistended, soft, nontender Extremities- mild pretibial edema, no calf tenderness Neuro- alert, oriented x 3; no gross focal neurologic deficits Skin- warm & dry Discharge Data Allergies Allergy/AdvReac Type Severity Reaction Status Date / Time citalopram Allergy Unknown Unknown Verified 08/08/21 20:42 paroxetine Allergy Unknown Unknown Verified 08/08/21 20:42 Sulfa (Sulfonamide Allergy Unknown TOLERATES Verified 08/08/21 20:42 Antibiotics) LASIX venom-wasp protein Allergy Unknown HIVES Verified 08/08/21 20:42 celecoxib AdvReac Mild N/V Verified 08/08/21 20:42 Consultations 08/08/21 21:06 ED Decision to Admit Stat Ordered Studies 08/08/21 21:56 CT head/brain wo con Urgent CT SCAN OF THE BRAIN WITHOUT IV CONTRAST CLINICAL HISTORY: Lethargy. COMPARISON STUDY: CT of the brain dated 07/27/2021. TECHNIQUE: Unenhanced axial CT scan of the brain is performed from the vertex to the skull base. A dose lowering technique was utilized adhering to the principles of ALARA. CT DOSE: 537.48 mGy.cm FINDINGS: Brain parenchyma: There are age-related involutional changes noting moderate subcortical and periventricular microangiopathic change. There is no hemorrhage, mass effect, or evidence of acute territorial ischemia by CT criteria. Mclain- white matter differentiation is preserved. No extra-axial fluid collection is seen. Ventricles, sulci, cisterns: Prominent secondary to involutional change. Intracranial vasculature: There is atherosclerotic calcification of the cavernous carotid and vertebral arteries. Calvarium: Unremarkable. Sinuses and mastoids: There is subtotal opacification of left sphenoid sinus. The remaining visualized paranasal sinuses are clear. The mastoid air cells are well pneumatized. Orbits: The bony orbits are grossly intact. There are bilateral ocular lens implants. IMPRESSION: There is no hemorrhage, mass effect, or evidence of acute territorial ischemia by CT criteria. Hospital Course (1) Ambulatory dysfunction: (2) UTI (urinary tract infection): (3) Generalized weakness: (4) Elevated troponin: per WILMA Marie's notes with addendum: This is a 81-year-old female who has significant past history of insulin- dependent T2DM uncontrolled, PAF not anticoagulated on warfarin, history of sinus node dysfunction status post pacemaker placement in 2009, chronic HFpEF, peripheral neuropathy, hypothyroidism, HTN, HLD who presents to ED after experiencing being discharged from our facility and inability to care for self at home/generalized weakness; therefore, she returned to the ED. Ambulatory dysfunction Generalized weakness Acute UTI Patient admitted, transfer level of care from telemetry to [facility] on 08/09 Continue IV cefepime Urine culture growing greater than 100,000 gram-negative bacilli PT OT consulted Patient now agreeable for rehab 08/15 Urine culture: E coli given Ceftriaxone IV x 5 days needs Cefuroxime for another 5 days Chronic HFpEF Atrial fibrillation History of TBS status post PPM 2009 HTN Elevated troponin Recent echo 07/26/2021 revealed EF 55 to 60%, grade 2 diastolic dysfunction, mild AR, moderate MR, moderate TR, severe left atrial enlargement, pulm hypertension present with PASP 41 mmHg Continue metoprolol, Lasix, losartan, Aldactone, digoxin and statin Patient denies chest pain Troponin is decreased Pacemaker interrogation during last hospitalization 08/15 Euvolemic today Recent mechanical fall Anterior left fourth and fifth rib fracture Acute mildly displaced angulated fracture of mid sternal body with trace retrosternal hemorrhage Patient denies any further chest pain or difficulty breathing Remains on room air Continues to have mild left facial ecchymoses which is resolving PT/OT eval: recommend SNF Uncontrolled T2DM Lantus/NovoLog A1c on 07/05/21 10.7 Chronic anemia Hemoglobin 8.6 DVT ppx: SCD/TEDS due to recent fall, hx of SDH, trace retrosternal hemorrhage Dispo: d/c to SNF ff up with PCP in 1 week Total Time Total Time Spent Total Time Spent (In Minutes): > 30 MINUTES Discharge Plan Discharge Items Patient Disposition: Transfer [facility] Fac Reason For Visit: AMS, TROP ELEV Discharge Diagnosis: ALTERED MENTAL STATUS URINARY TRACT INFECTION Activity: Per Instructions section Activity Comment: FALL PRECAUTIONS, ALWAYS WITH ASSISTANCE, CONTINUE PT/OT Lifting: Wait until after follow-up appointment Exercise/Sports: Wait until after follow-up appointment Non-emergency contact: Primary Care Provider Call non-emergency contact if: you have any medication questions, your symptoms worsen, your pain is not controlled, your pain is worsening, your pain is unu sual for you, your pain is concerning for you and you have a fever Follow-up/Referrals: Mo Fontenot, DO [Primary Care Provider] - Diet: Carb Consistent or DM2 and Heart Healthy Addtl Attending Provider Instructions: PLEASE REFER TO YOUR NEW MEDICATION LIST AND FOLLOW INSTRUCTIONS CAREFULLY. YOUR NEW MEDICATIONS INCLUDE: CEFUROXIME- antibiotic for UTI LACTOBACILLUS- probiotics to prevent C diff colitis PLEASE CALL YOUR PRIMARY CARE PHYSICIAN OR RETURN TO THE ER IF WITH WORSENING OF SYMPTOMS, INCLUDING change in mental status, weakness, fever/chills, etc FOLLOW UP WITH PRIMARY CARE PHYSICIAN IN 1 WEEK. Pending Studies at Discharge: No Stand-Alone Forms: [employer], Smoking Cessation Skilled Items Patient informed of condition?: Yes DNR: No Discharge Level of Care: Skilled Communicable Disease: No Discharge Prognosis: Stable Lines: None Urinary Catheter: No Medications and DC Order Prescriptions: New Advanced Probiotic 625 mg (10 billion cell) Capsule 2 cap PO DAILY 30 Days Qty: 60 RF: 0 cefuroxime axetil 250 mg tablet 250 mg PO BID 5 Days Qty: 10 RF: 0 Continued Lantus Solostar U-100 Insulin 100 unit/mL (3 mL) insulin pen 13 unit SUBCUT QAM RF: 0 losartan 50 mg Tablet 50 mg PO HS RF: 0 atorvastatin 40 mg Tablet 40 mg PO HS RF: 0 spironolactone 25 mg Tablet 25 mg PO HS RF: 0 levothyroxine 75 mcg Tablet 75 mcg PO HS RF: 0 rizatriptan 5 mg Tablet 5 mg PO DIRECTED PRN (Reason: Migraine Headache) RF: 0 magnesium oxide 400 mg magnesium Capsule 400 mg PO HS RF: 0 PreserVision AREDS [id number] Capsule 1 cap PO HS RF: 0 insulin lispro [Humalog KwikPen Insulin] 100 unit/mL insulin pen 1 unit subcut UD Qty: 0 RF: 0 metoprolol succinate 100 mg tablet extended release 24 hr 100 mg PO BID Qty: 60 RF: 0 allopurinol 300 mg tablet 300 mg PO HS RF: 0 digoxin 125 mcg (0.125 mg) tablet 125 mcg PO DAILY@2000 RF: 0 epinephrine 0.3 mg/0.3 mL Auto-Injector 0.3 mg IM Q4H PRN (Reason: Allergic Reaction) RF: 0 cholecalciferol (vitamin D3) 25 mcg (1,000 unit) Tablet 25 mcg PO HS RF: 0 furosemide 40 mg tablet 20 mg PO DAILY Qty: 30 RF: 0 Discharge Orders: Discharge Order (Routine); Ordered 08/15/21 Ordered By: Chris Balderas/Other Patient Handouts: Urinary Tract Infections in Women Admission Data Admit Date/Time: 08/09/21 18:31 Attending Provider: Chris Lawson Admit Provider: Jean Pierre Lee Primary Care Provider: Mo Fontenot Other Providers: Brenda Hurd ; Jean Pierre Lee ; [place] Other Interventions: Discharge Summary Assessment (RN) Last Done: 08/15/21 12:14
== END 2021-08-15 13:03 | DRG 689 ==
LOC: ED 19:44 → 2W 19:44 → 3W 08-10 18:27

== ENCOUNTER 2021-12-04 11:17 | Inpatient (IN) ==
[2021-12-04 11:44] LABS: Basophils # (auto) 0.01 K/uL (0-0.2); Basophils % (auto) 0.2 %; Eosinophils # (auto) 0.01 K/uL (0-0.50); Eosinophils % (auto) 0.2 %; Hemoglobin 8.9 g/dl (12.0-16.0); Immature Granulocytes # (auto) 0.03 K/uL (0.00-0.02); Immature Granulocytes % (auto) 0.5 %; Lymphocytes # (auto) 0.65 K/uL (1.2-3.4); Lymphocytes % (auto) 9.8 %; Mean Corpuscular Hgb Conc 31.8 g/dL (32.0-36.0); Mean Corpuscular Volume 91.2 fL (80.0-100.0); Mean Platelet Volume 10.8 fL (9.4-12.3); Monocytes # (auto) 0.65 K/uL (0.24-0.82); Monocytes % (auto) 9.8 %; Neutrophils % (auto) 79.5 %; Platelet Count 104 K/uL (130-400); RDW Coefficient of Variation 26.3 % (11.5-14.5); RDW Standard Deviation 82.8 fL (36.4-46.3); Red Blood Count 3.07 M/uL (3.93-5.22); White Blood Count 6.65 K/ul (4.8-10.8)
--- NOTE | 2021-12-04 11:50 | XRay Report ---
SINGLE VIEW CHEST CLINICAL HISTORY: Atypical chest pain. FINDINGS: An AP, portable, upright chest radiograph is compared to study dated 08/08/2021 and correlat ed with chest CT dated 07/27/2021. The examination is degraded by portable technique and patient rotat ion. A hiatal hernia is noted. A 2-lead cardiac pacemaker is unchanged in position and partially obsc ures the left mid chest The heart is enlarged noting atherosclerotic calcification of the thoracic ao rta. The pulmonary vasculature is noncongested. Chronic interstitial thickening is similar to previou s. Scarring/atelectasis is noted at the lung bases. Question trace pleural effusions. No pneumothorax is seen. The skeletal structures are osteopenic. The bony thorax is grossly intact. IMPRESSION: 1. Cardiomegaly and cardiac pacemaker without radiographic evidence of congestive failure. 2. Suspect trace pleural effusions. ACT 112: Negative or not required by law. Electronically signed by: Isauro Mercado M.D. 12/04/2021 11:49 AM
[2021-12-04] MEDS ORDERED: METOPROLOL TARTRATE 1 MG/ML VIAL IV STA ×2 (11:54→12:51)
[2021-12-04 11:57] LABS: INR 1.6 (0.9-1.1); Prothrombin Time 16.2 Seconds (9.0-12.0)
[2021-12-04 12:02] LABS: Anisocytosis Present; Poikilocytosis Present
[2021-12-04 12:06] LABS: Alanine Aminotransferase 33 U/L (7-52); Albumin Globulin Ratio 1.1 (0.9-2); Albumin Level 3.7 gm/dl (3.4-5.0); Alkaline Phosphatase 179 U/L (34-104); Anion Gap 12 (3-11); Aspartate Aminotransferase 38 U/L (13-39); BUN Creatinine Ratio 52.6 (10-20); Bilirubin,Total 0.9 mg/dl (0.2-1.0); Blood Urea Nitrogen 50 mg/dl (6-23); Carbon Dioxide 14 mmol/L (21-32); Chloride 112 mmol/L (98-107); Globulin 3.5 gm/dl (2.5-4.0); Glucose 148 mg/dl (70-99(Fasting)); Lipase 229 U/L (11-82); Potassium 4.4 mmol/L (3.5-5.1); Sodium 138 mmol/L (136-145); Total Protein 7.2 gm/dl (6.0-8.3)
[2021-12-04 12:10] LABS: Base Excess VBG -11.2 mEq/L; HCO3 VBG 14 mmol/L; Oxygen Saturation VBG < 60.0 %; PCO2 VBG 29 mmHg (38-50); PO2 VBG 25 mmHg; pH VBG 7.29 (7.36-7.41)
[2021-12-04 12:10] LABS: Troponin I High Sensitivity 33.4 pg/ml (0-14)
--- NOTE | 2021-12-04 12:13 | Emergency Department Note ---
Impression & Plan Atrial fibrillation with RVR, CHF (congestive heart failure), Breath shortness ED Provider Note NAME: GWEN HENAO AGE: 81 SEX: F : 1940 ARRIVES VIA: Ambulance INFORMANT: Patient ED PROVIDER(S): Miguel Perdomo DO CHIEF COMPLAINT: shortness of breath HPI: Patient is a 81-year-old female who presents to the ER for shortness of breath referred in by cardiology Dr. Barboza following being seen in the office. There she was falling asleep and was found to have CHF and decompensated heart failure. Patient denies any headache or change in vision. No chest pain but admits to shortness of breath which has present for quite some time and worsening over the past month. Nothing significantly has changed today. She does admit to a wound on her right leg which has been present for several weeks. Denies any fevers. No belly pain, nausea, vomiting, or diarrhea. No dysuria, urgency, or frequency. No other exacerbating or remitting factors. ROS: See above HPI for pertinent positives & negatives. A total of 10 systems reviewed and were otherwise negative. PAST MEDICAL HISTORY:See Below PAST SURGICAL HISTORY:See Below FAMILY HISTORY:See Below SOCIAL HISTORY:See Below HOME MEDICATIONS:See Below ALLERGIES:See Below VITALS:See Below PHYSICAL EXAMINATION: GENERAL: Sitting up in bed, alert, well appearing, well nourished, no distress, non-toxic EYE EXAM: normal conjunctiva. NECK: +JVD OROPHARYNX: mucous membranes are moist LUNGS: Clear to auscultation. Normal chest wall mechanics HEART: Irregular regular, S1 normal and S2 normal ABDOMEN: abdomen soft, non-tender, normo-active bowel sounds, no masses, no rebound or guarding. UPPER EXTREMITIES: upper extremities are grossly normal. LOWER EXTREMITIES: No pitting edema. Neuro on the right lateral [place] with no surrounding redness. NEURO EXAM: Normal sensorium, cranial nerves II-XII grossly intact, normal speech, no gross weakness of arms, no gross weakness of legs. MEDICAL DECISION MAKING: Patient is a 41-year-old female who presents ER for the boasting complaint. IV was established blood work was obtained. Labs show no significant leukocytosis. Mild anemia at 8.9. Thrombocytopenia at 104. INR 1.6. ABG with pH 7.29 and a CO2 of 29. Bicarb was low at 14. BMP with almost normal anion gap acidosis. Troponin was 33. Lipase slightly up at 229. TSH at 18. UA was contaminated. COVID was negative. Chest x-ray with likely small pleural effusions. Patient was tachycardic and hypotensive in the 90s with A. fib with RVR and was given 2 doses of 2.5 mg of Lopressor and heart rate trended down to 100. Systolic pressures trended up to the low 100s/120. Case was discussed with the hospitalist and admitted for further work-up to [facility]. Triage Nursing notes reviewed. Limited review of prior medical records performed Vital Signs: reviewed and remarkable for Hypotension and tachy Differential diagnosis: Differential diagnoses includes but is not limited to pneumonia, bronchitis, COPD/Asthma exacerbation, pneumothorax, pulmonary embolism, congestive heart failure, acute coronary syndrome ER treatment provided: See below Diagnostics interpreted by me: ECG: A. fib RVR rate of [address] depressions in the lateral leads Left bundle branch block QTC 572 Cardiac Monitoring: An order was placed for continuous cardiac monitoring. The monitor shows a rate of 110 with Afib rhythm. Laboratory studies: As stated above and show below. Imaging studies: Portable AP upright 1 view of the chest shows pleural effusion Consultation(s): This with Roxane from [facility] Hospitalist service for further evaluation Procedures: none Critical Care: I have personally spent 35 minutes of critical care time in the direct management of this patient. This includes bedside care, interpretation of diagnostic studies, and testing, discussion with consultants, patient, and family members, and other required patient management activities. This 35 minutes is in excess of all separately billable procedures. Past Med/Surg History Medical History Afib Cerebral hemorrhage "2010 left hemiparesis" Chronic anemia Chronic combined systolic and diastolic CHF (congestive heart failure) Diabetes mellitus, type II Frequent falls hx of subarachnoid hemorrhage 2010, large retroperitoneal bleed 2015 walker dependent Gout Hematoma of rectus sheath 2015 Hemiplegia History of - cerebrovascular accident HLD (hyperlipidemia) HTN (hypertension) Hypothyroidism Pacemaker Presence of IVC filter Tachy-jodi syndrome Surgical History Status post appendectomy Status post cardiac pacemaker procedure Status post cataract extraction Status post cholecystectomy Status post hysterectomy Status post insertion of inferior vena caval filter Family History Daughter Breast cancer Mother Cancer pancreatic Father Heart disease Social History Smoking Status: Unknown if ever smoked Second Hand Exposure: No; Hx Alcohol Use: No Hx Substance Use: No Preferred Language: Macedonian Communication Ability: Effective Bed Operator Required: No Beliefs That Will Affect Care: None marital status: Current Living Situation: Spouse Current Living Situation Comment: patient lives at home with , who is h er primary caregiver Feels Safe at Home: Yes Assistive Devices: Walker Allergies Allergies Allergy/AdvReac Type Severity Reaction Status Date / Time citalopram Allergy Unknown Unknown Verified 08/08/21 20:42 paroxetine Allergy Unknown Unknown Verified 08/08/21 20:42 Sulfa (Sulfonamide Allergy Unknown TOLERATES Verified 08/08/21 20:42 Antibiotics) LASIX venom-wasp protein Allergy Unknown HIVES Verified 08/08/21 20:42 celecoxib AdvReac Mild N/V Verified 08/08/21 20:42 Home Meds Home Medications Medication Instructions Recorded Confirmed atorvastatin 40 mg tablet 40 mg PO DAILY 12/13/20 12/04/21 levothyroxine 75 mcg tablet 75 mcg PO DAILY 12/13/20 12/04/21 losartan 50 mg tablet 50 mg PO DAILY 12/13/20 12/04/21 magnesium oxide 400 mg PO DAILY 12/13/20 12/04/21 spironolactone 25 mg tablet 25 mg PO DAILY 12/13/20 12/04/21 allopurinol 300 mg tablet 300 mg PO DAILY 03/05/21 12/04/21 cholecalciferol (vitamin D3) 25 25 mcg PO DAILY 03/05/21 12/04/21 mcg (1,000 unit) tablet digoxin 125 mcg (0.125 mg) tablet 125 mcg PO DAILY@199903/05/21 12/04/21 epinephrine 0.3 mg/0.3 mL 0.3 mg IM Q4H PRN Allergic Reaction 03/05/21 12/04/21 injection, auto-injector insulin glargine 100 unit/mL (3 25 unit subcut QAM 06/30/21 12/04/21 mL) subcutaneous pen (Lantus Solostar U-100 Insulin) furosemide 40 mg tablet 60 mg PO DAILY 12/04/21 12/04/21 gabapentin 300 mg capsule 300 mg PO HS 12/04/21 12/04/21 Previous Rx's Medication Instructions Recorded insulin lispro 100 unit/mL 1 unit (0.01 mL) subcut UD #0 mL 06/16/21 subcutaneous pen (Humalog KwikPen (U-100) Insulin) metoprolol succinate 100 mg 100 mg PO BID #60 tabs 08/08/21 tablet,extended release 24 hr Results & Data (ED) Vital Signs Vital Signs - 24 hr 12/04/21 11:20 12/04/21 13:15 12/04/21 11:33 Temperature 36.7 C Temperature Source Oral Pulse Rate 123 H 108 H 120 H Pulse Rate from SpO2 Sensor Pulse Rhythm Irregular Respiratory Rate 18 14 Respiratory Effort / Characteristics Non-Labored Respiratory Depth Normal Blood Pressure 97/73 L 116/79 Blood Pressure Mean 81 Pulse Oximetry 95 95 Oxygen Delivery Method Room Air Room Air Sepsis Recent Fever Within 48 Hours No Sepsis New/Unexplained Change in Mental Status N/A Sepsis Action Taken by Nursing No Action Required 12/04/21 11:29 12/04/21 11:30 12/04/21 11:40 Temperature Temperature Source Pulse Rate 120 H 120 H 132 H Pulse Rate from SpO2 Sensor 124 H 129 H 131 H Pulse Rhythm Respiratory Rate 15 12 15 Respiratory Effort / Characteristics Respiratory Depth Blood Pressure Blood Pressure Mean Pulse Oximetry 99 100 100 Oxygen Delivery Method Sepsis Recent Fever Within 48 Hours Sepsis New/Unexplained Change in Mental Status Sepsis Action Taken by Nursing 12/04/21 11:50 12/04/21 12:00 12/04/21 12:10 Temperature Temperature Source Pulse Rate 119 H 132 H 124 H Pulse Rate from SpO2 Sensor 129 H 135 H 132 H Pulse Rhythm Respiratory Rate 14 14 14 Respiratory Effort / Characteristics Respiratory Depth Blood Pressure Blood Pressure Mean Pulse Oximetry 100 99 100 Oxygen Delivery Method Sepsis Recent Fever Within 48 Hours Sepsis New/Unexplained Change in Mental Status Sepsis Action Taken by Nursing 12/04/21 12:20 12/04/21 12:27 12/04/21 12:28 Temperature Temperature Source Pulse Rate 123 H 130 H Pulse Rate from SpO2 Sensor 129 H 128 H Pulse Rhythm Respiratory Rate 14 14 Respiratory Effort / Characteristics Respiratory Depth Blood Pressure 116/79 Blood Pressure Mean 91 Pulse Oximetry 100 100 Oxygen Delivery Method Sepsis Recent Fever Within 48 Hours Sepsis New/Unexplained Change in Mental Status Sepsis Action Taken by Nursing 12/04/21 12:28 12/04/21 12:30 12/04/21 13:00 Temperature Temperature Source Pulse Rate 131 H 126 H 107 H Pulse Rate from SpO2 Sensor 129 H 120 H 111 H Pulse Rhythm Respiratory Rate 18 14 9 L Respiratory Effort / Characteristics Respiratory Depth Blood Pressure Blood Pressure Mean Pulse Oximetry 99 100 99 Oxygen Delivery Method Sepsis Recent Fever Within 48 Hours Sepsis New/Unexplained Change in Mental Status Sepsis Action Taken by Nursing Laboratory Data Result diagrams: 12/04/21 11:25 12/04/21 11:25 Lab Results 12/04/21 12/04/21 12/04/21 Range/Units 11:25 11:25 11:25 WBC 6.65 (4.8-10.8) K/ul RBC 3.07 L (3.93-5.22) M/uL Hgb 8.9 L (12.0-16.0) g/dl Hct 28.0 L (34.1-44.9) % MCV 91.2 (80.0-100.0) fL MCH 29.0 (25.0-34.0) pg MCHC 31.8 L (32.0-36.0) g/dL RDW Std Deviation 82.8 H (36.4-46.3) fL RDW Coeff of [place] 26.3 H (11.5-14.5) % Plt Count 104 L (130-400) K/uL MPV 10.8 (9.4-12.3) fL Immature Gran % (Auto) 0.5 % Neut % (Auto) 79.5 % Lymph % (Auto) 9.8 % [place] % (Auto) 9.8 % Eos % (Auto) 0.2 % Baso % (Auto) 0.2 % Neut # (Auto) 5.30 (1.4-6.5) K/uL Lymph # (Auto) 0.65 L (1.2-3.4) K/uL [place] # (Auto) 0.65 (0.24-0.82) K/uL Eos # (Auto) 0.01 (0-0.50) K/uL Baso # (Auto) 0.01 (0-0.2) K/uL Immature Gran # (Auto) 0.03 H (0.00-0.02) K/uL Poikilocytosis Present Anisocytosis Present PT 16.2 H (9.0-12.0) Seconds INR 1.6 H (0.9-1.1) VBG pH (7.36-7.41) VBG pCO2 (38-50) mmHg VBG pO2 mmHg VBG HCO3 mmol/L VBG O2 Saturation % VBG Base Excess mEq/L Sodium 138 (136-145) mmol/L Potassium 4.4 (3.5-5.1) mmol/L Chloride 112 H (98-107) mmol/L Carbon Dioxide 14 L (21-32) mmol/L Anion Gap 12 H (3-11) BUN 50 H (6-23) mg/dl Creatinine 0.95 (0.6-1.2) mg/dl Est Cr Clr Drug Dosing Not Reportable Est GFR ( Amer) 66.0 ml/min Est GFR (Non-Af Amer) 57.0 ml/min BUN/Creatinine Ratio 52.6 H (10-20) Glucose 148 H (70-99(Fasting)) mg/dl Calcium 9.0 (8.5-10.1) mg/dl Total Bilirubin 0.9 (0.2-1.0) mg/dl AST 38 (13-39) U/L ALT 33 (7-52) U/L Alkaline Phosphatase 179 H (34-104) U/L Troponin I High Sens 33.4 H (0-14) pg/ml B-Natriuretic Peptide (0-100) pg/ml Total Protein 7.2 (6.0-8.3) gm/dl Albumin 3.7 (3.4-5.0) gm/dl Globulin 3.5 (2.5-4.0) gm/dl Albumin/Globulin Ratio 1.1 (0.9-2) Lipase 229 H (11-82) U/L SARS-CoV-2, RNA, NAAT (NEGATIVE) 12/04/21 12/04/21 12/04/21 Range/Units 11:44 11:50 11:50 WBC (4.8-10.8) K/ul RBC (3.93-5.22) M/uL Hgb (12.0-16.0) g/dl Hct (34.1-44.9) % MCV (80.0-100.0) fL MCH (25.0-34.0) pg MCHC (32.0-36.0) g/dL RDW Std Deviation (36.4-46.3) fL RDW Coeff of [place] (11.5-14.5) % Plt Count (130-400) K/uL MPV (9.4-12.3) fL Immature Gran % (Auto) % Neut % (Auto) % Lymph % (Auto) % [place] % (Auto) % Eos % (Auto) % Baso % (Auto) % Neut # (Auto) (1.4-6.5) K/uL Lymph # (Auto) (1.2-3.4) K/uL [place] # (Auto) (0.24-0.82) K/uL Eos # (Auto) (0-0.50) K/uL Baso # (Auto) (0-0.2) K/uL Immature Gran # (Auto) (0.00-0.02) K/uL Poikilocytosis Anisocytosis PT (9.0-12.0) Seconds INR (0.9-1.1) VBG pH 7.29 L (7.36-7.41) VBG pCO2 29 L (38-50) mmHg VBG pO2 25 mmHg VBG HCO3 14 mmol/L VBG O2 Saturation < 60.0 % VBG Base Excess -11.2 mEq/L Sodium (136-145) mmol/L Potassium (3.5-5.1) mmol/L Chloride (98-107) mmol/L Carbon Dioxide (21-32) mmol/L Anion Gap (3-11) BUN (6-23) mg/dl Creatinine (0.6-1.2) mg/dl Est Cr Clr Drug Dosing Est GFR ( Amer) ml/min Est GFR (Non-Af Amer) ml/min BUN/Creatinine Ratio (10-20) Glucose (70-99(Fasting)) mg/dl Calcium (8.5-10.1) mg/dl Total Bilirubin (0.2-1.0) mg/dl AST (13-39) U/L ALT (7-52) U/L Alkaline Phosphatase (34-104) U/L Troponin I High Sens (0-14) pg/ml B-Natriuretic Peptide 2883 H (0-100) pg/ml Total Protein (6.0-8.3) gm/dl Albumin (3.4-5.0) gm/dl Globulin (2.5-4.0) gm/dl Albumin/Globulin Ratio (0.9-2) Lipase (11-82) U/L SARS-CoV-2, RNA, NAAT NEGATIVE (NEGATIVE) Administered Medications Discontinued Medications Acetaminophen (Acetaminophen 1000 Mg/100 Ml Iv) 1,000 mg IV ONE STA Stop: 12/04/21 14:19 Last Admin: 12/04/21 14:47 Dose: 1,000 mg Documented By: EDITH Metoprolol Succinate (Metoprolol Succ 50mg Ext Rel Tab) 100 mg PO NOW STA Stop: 12/04/21 14:34 Last Admin: 12/04/21 14:58 Dose: 100 mg Documented By: EDITH Metoprolol Tartrate (Metoprolol Tartrate 1 Mg/Ml Vial) 2.5 mg IV NOW STA Stop: 12/04/21 11:55 Last Admin: 12/04/21 12:26 Dose: 2.5 mg Documented By: EDIHT Metoprolol Tartrate (Metoprolol Tartrate 1 Mg/Ml Vial) 2.5 mg IV NOW STA Stop: 12/04/21 12:52 Last Admin: 12/04/21 13:15 Dose: 2.5 mg Documented By: EDITH Nitroglycerin (Nitroglycerin 2% Ointment 30gm Tube) 0.5 inch EXT NOW ONE Stop: 12/04/21 14:06 Last Admin: 12/04/21 14:47 Dose: 0.5 inch Documented By: EDITH Imaging Data Radiologist's Impression: Chest X-Ray 12/04/21 11:33 SINGLE VIEW CHEST CLINICAL HISTORY: Atypical chest pain. FINDINGS: An AP, portable, upright chest radiograph is compared to study dated 08/08/2021 and correlated with chest CT dated 07/27/2021. The examination is degraded by portable technique and patient rotation. A hiatal hernia is noted. A 2-lead cardiac pacemaker is unchanged in position and partially obscures the left mid chest The heart is enlarged noting atherosclerotic calcification of the thoracic aorta. The pulmonary vasculature is noncongested. Chronic interstitial thickening is similar to previous. Scarring/atelectasis is noted at the lung bases. Question trace pleural effusions. No pneumothorax is seen. The skeletal structures are osteopenic. The bony thorax is grossly intact. IMPRESSION: 1. Cardiomegaly and cardiac pacemaker without radiographic evidence of congestive failure. 2. Suspect trace pleural effusions. ACT 112: Negative or not required by law. Electronically signed by: Isauro Mercado M.D. 12/04/2021 11:49 AM Discharge Plan Visit Data Chief Complaint: Lethargic ED Provider: Miguel Perdomo Discharge Problem: Atrial fibrillation with RVR, CHF (congestive heart failure), Breath shortness Patient Disposition: Admitted As Inpatient Discharge Instructions Interventions: ED Discharge Assessment Last Done: 12/04/21 16:18
--- NOTE | 2021-12-04 12:53 | Electrocardiogram Report ---
Test Reason : Blood Pressure : / mmHG Vent. Rate : 122 BPM Atrial Rate : 150 BPM P-R Int : 000 ms QRS Dur : 156 ms QT Int : 402 ms P-R-T Axes : 000 -27 148 degrees QTc Int : 572 ms Atrial fibrillation with rapid ventricular response with premature ventricular or aberrantly conducte d complexes Left bundle branch block Abnormal ECG When compared with ECG of 08-AUG-2021 19:54, Electronic ventricular pacemaker no longer apparent Confirmed by Naren Nunes ([id number]) on 12/04/2021 12:52:58 PM Referred By: ED Confirmed By:Naren Nunes
--- NOTE | 2021-12-04 13:05 | History & Physical Report ---
Date of Service December 04, 2021 Assessment & Plan (1) Metabolic acidosis: Plan: - Admit to tele - VBG showing pH of 7.29, CO2 29, rechecking ABG now - Check lactate - hx of taking 2-4 aspirin 4x daily concerning for salicylate toxicity so will rule this out. Checking drug tox and salicylate levels now - Consider giving hydration versus diuresis with lasix at present due to acidosis - following labs - LFTs with alk phos and lipase are elevated, will trend with am labs (2) Diastolic heart failure: Plan: - Trend cardiac biomarkers, initial set was 33.4 - EKG reviewed - 2 D echo completed on 08/31/21 showing EF of 55-59%, LV wall thickness mildly increased, left atrium severely enlarged, left atrial enlargement suggests diastolic left ventricular dysfunction, pulm aa pressure 55 mmHG, moderate pulmonary hypertension is present, mild AI, moderated MR, moderate TR - If negative enzymes can consider a stress test tomorrow morning. - Pt missed morning medications today - given lopressor 2.5 mg IV x 2 in the ER, will give metoprolol succinate now, hold on losartan, spironolactone for now - PT/OT consulted (3) Elevated troponin: Plan: - Noted, follow as above, previously elevated in the past - EKG reviewed as above - BNP elevated at 2883 however the patient doesn't appear to be grossly overloaded - legs are nonpitting edema, chest is clear to auscultation but has mild JVD. (4) Afib: Plan: -Chronic, not on anticoagulation secondary to frequent falls, history of subarachnoid hemorrhage as per HPI -Rate controlled on digoxin, Toprol succinate BID (5) Generalized weakness: Plan: - Concern for salicylate toxicity with lethargy, taking large quantity of aspirin on a daily basis concern for such -Checking salicylate level, lactic acid, noted to be acidotic on VBG, repeating ABG now - Hx of MRSA and staph aureus infection of the right lower leg ulceration from wound culture review on 11/11/21 - Monitor for cellulitis with leg edema - Start doxycycline 100 mg BID - Check CT head stat (6) Ambulatory dysfunction: Plan: - PT/OT consults, may require snf placement following admission (7) Type II diabetes mellitus, uncontrolled: Plan: - Last A1C = 8.2 on 08/28 - ISS with accuchecks achs, will continue on lantus 12 units bid and sliding scale - Allow HH/DM diet (8) Hypothyroidism: Plan: - Cont levothyroxine - Will check TSH and free T4 DVT ppx: - scds, heparin subq following CT head CODE: Full code Dispo: From home, likely to remain in the hospital x 1-2 days (9) Noncompliance: History of Present Illness Chief Complaint: lethargy, fatigue Primary Care Provider: Mo Fontenot DO This is a 81 yo F with PMHx of insulin-dependent T2DM uncontrolled, PAF not anticoagulated on warfarin due to hx of frequent galls and rectus sheath hematoma/subarachnoid hemorrhage in the past, history of sinus node dysfunction status post pacemaker placement in 2009, chronic HFpEF, peripheral neuropathy, hypothyroidism, HTN, HLD, chronic anemia with hgb baseline of 8-9. She has had multiple admissions in the past few months, most recently being in July 26-, discharged home but was unable to care for herself, then August 08-August 15 and was discharged to for rehab. Pt has been living at home with her most recently. Today she presents to the hospital from cardiology office where she was seen for routine follow-up. There they had been working with her Lasix and titrating up from 20 to 60 mg since November 17 due to increased edema in her lower extremities. She reports that she normally weighs 114 pounds, but that her legs have remained edematous. She denies any changes in her dietary intake, and has been taking her medications as instructed. Pt admits to heaviness in her chest, worsening shortness of breath, fatigue, but denies specific chest pain, abdominal pain, nausea or vomiting. Last bowel movement was yesterday, and denies any complaints regarding urination. She did not take any of her medications today due to being at an appointment. She reports her legs have been very painful, and making it difficult to walk, even with a walker and a cane at baseline. There at the cardiology office, she was noted to be lethargic and falling asleep mid sentence. Patient was tra nsferred via ambulance over to the ER by request of the physician today for inpatient admission, with decompensated CHF, not responding to increased diuretics as an outpatient. She also has a right lower leg ulceration which has been nonhealing for some time now; recently, a surface culture was obtained and grew out staph aureus and MRSA. She currently has Calmoseptine lotion over her leg to help dry it out. She reports that the pain in her legs has progressively worsened. She also notes she has been using aspirin 2-4 tablets at a time, about 4 times daily for the past month due to worsening pain. Her notes increased confusion and lethary at home. Allergies Allergy/AdvReac Type Severity Reaction Status Date / Time citalopram Allergy Unknown Unknown Verified 08/08/21 20:42 paroxetine Allergy Unknown Unknown Verified 08/08/21 20:42 Sulfa (Sulfonamide Allergy Unknown TOLERATES Verified 08/08/21 20:42 Antibiotics) LASIX venom-wasp protein Allergy Unknown HIVES Verified 08/08/21 20:42 celecoxib AdvReac Mild N/V Verified 08/08/21 20:42 Home Medications Medication Instructions Recorded Confirmed Type atorvastatin 40 mg tablet 40 mg PO DAILY 12/13/20 12/04/21 History levothyroxine 75 mcg tablet 75 mcg PO DAILY 12/13/20 12/04/21 History losartan 50 mg tablet 50 mg PO DAILY 12/13/20 12/04/21 History magnesium oxide 400 mg PO DAILY 12/13/20 12/04/21 History spironolactone 25 mg tablet 25 mg PO DAILY 12/13/20 12/04/21 History allopurinol 300 mg tablet 300 mg PO DAILY 03/05/21 12/04/21 History cholecalciferol (vitamin D3) 25 25 mcg PO DAILY 03/05/21 12/04/21 History mcg (1,000 unit) tablet digoxin 125 mcg (0.125 mg) tablet 125 mcg PO DAILY@199903/05/21 12/04/21 History epinephrine 0.3 mg/0.3 mL 0.3 mg IM Q4H PRN Allergic Reaction 03/05/21 12/04/21 History injection, auto-injector insulin lispro 100 unit/mL 1 unit (0.01 mL) subcut UD #0 mL 06/16/21 12/04/21 Rx subcutaneous pen (Humalog KwikPen (U-100) Insulin) insulin glargine 100 unit/mL (3 25 unit subcut QAM 06/30/21 12/04/21 History mL) subcutaneous pen (Lantus Solostar U-100 Insulin) metoprolol succinate 100 mg 100 mg PO BID #60 tabs 08/08/21 12/04/21 Rx tablet,extended release 24 hr furosemide 40 mg tablet 60 mg PO DAILY 12/04/21 12/04/21 History gabapentin 300 mg capsule 300 mg PO HS 12/04/21 12/04/21 History Past Med/Surg History Medical History Acute alteration in mental status Afib CASH (acute kidney injury) Cerebral hemorrhage "2010 left hemiparesis" Chest pain Chronic anemia Chronic combined systolic and diastolic CHF (congestive heart failure) Dehydration Diabetes mellitus, type II Elevated troponin Facial lesion Frequent falls hx of subarachnoid hemorrhage 2009, large retroperitoneal bleed 2014 walker dependent Gout Hematoma of rectus sheath 2015 Hemiplegia History of - cerebrovascular accident HLD (hyperlipidemia) HTN (hypertension) Hypothyroidism Pacemaker Presence of IVC filter Tachy-jodi syndrome Surgical History Status post appendectomy Status post cardiac pacemaker procedure Status post cataract extraction Status post cholecystectomy Status post hysterectomy Status post insertion of inferior vena caval filter Family History Daughter Breast cancer Mother Cancer pancreatic Father Heart disease Social History Smoking Status: Never smoker Second Hand Exposure: No; Hx Alcohol Use: No Hx Substance Use: No Preferred Language: Niuean Communication Ability: Effective Experimental Technician Required: No Beliefs That Will Affect Care: None marital status: Current Living Situation: Spouse Current Living Situation Comment: patient lives at home with , who is her primary caregiver Other Information That Helps Us Care for You: No Feels Safe at Home: Yes Safety Concerns: Feels Safe At This Time Assistive Devices: Glasses and Walker Review of Systems Review of Systems: Constitutional: No fever, sweats or chills Eyes: No diplopia, no worsening or blurred vision ENT: normal hearing, no trouble swallowing Respiratory: No cough, sputum, + dyspnea at rest and on exertion Cardiovascular: + Chest heaviness, no chest pain, tightness or palpitations Abdomen: No pain, nausea, vomiting, diarrhea or constipation Musculoskeletal: + Leg pain as per HPI, + right lower leg ulceration, no calf pain, + increased swelling Neurologic: +generalized weakness, no numbness/tingling, + chronic balance problems and falls history Psychiatric: No anxiety or depression Skin: No rash or itch, + r leg ulceration Physical Exam Physical Exam: General: awake, alert but lethargic, slow to answer questions, no apparent distress Head: Normocephalic, atraumatic ENT: PERRL, EOMI, no pharyngeal exudate, mucous membranes moist Chest: Clear to auscultation, on room air, no adventitious breath sounds Cardiac: + Irregularly irregular, tachy in the 120s at bedside, faint systolic murmur heard on exam, mild JVD, normal peripheral pulses, good capillary refill Abdominal: NABS x 4 quadrants, soft, nondistended, minimal tenderness to deep palpation in the LLQ, no rebound or guarding Extremities: + R anterior vallecillo ulceration measuring ~ 6x7 cm in diameter with granular tissue, minimal surrounding erythema, + trace bilateral nonpitting edema of legs, otherwise normal inspection, calfs nontender to palpation Psych: Normal mood and affect Neuro: AAO x 3, strength intact bilaterally and rated 4/5, no motor deficits, speech is clear, no peripheral sensory deficits Results & Data Results & Data ([facility]) Vital Signs (Past 12 Hours) Vital Signs Temp Pulse Resp BP Pulse Ox O2 Del Method 12/04/21 12:28 116/79 12/04/21 12:27 130 H 14 100 12/04/21 12:20 123 H 14 100 12/04/21 12:10 124 H 14 100 12/04/21 12:00 132 H 14 99 12/04/21 11:50 119 H 14 100 12/04/21 11:40 132 H 15 100 12/04/21 11:30 120 H 12 100 12/04/21 11:29 120 H 15 99 12/04/21 11:33 120 H 14 95 Room Air 12/04/21 11:20 36.7 C 123 H 18 97/73 L 95 Room Air Laboratory Results 12/04/21 12/04/21 12/04/21 11:50 11:50 11:44 WBC RBC Hgb Hct MCV MCH MCHC RDW Std Deviation RDW Coeff of [place] Plt Count MPV Immature Gran % (Auto) Neut % (Auto) Lymph % (Auto) [place] % (Auto) Eos % (Auto) Baso % (Auto) Neut # (Auto) Lymph # (Auto) [place] # (Auto) Eos # (Auto) Baso # (Auto) Immature Gran # (Auto) Poikilocytosis Anisocytosis PT INR VBG pH 7.29 L VBG pCO2 29 L VBG pO2 25 VBG HCO3 14 VBG O2 Saturation < 60.0 VBG Base Excess -11.2 Sodium Potassium Chloride Carbon Dioxide Anion Gap BUN Creatinine Est Cr Clr Drug Dosing Est GFR ( Amer) Est GFR (Non-Af Amer) BUN/Creatinine Ratio Glucose Calcium Total Bilirubin AST ALT Alkaline Phosphatase Troponin I High Sens B-Natriuretic Peptide 2883 H Total Protein Albumin Globulin Albumin/Globulin Ratio Lipase SARS-CoV-2, RNA, NAAT NEGATIVE 12/04/21 12/04/21 12/04/21 11:25 11:25 11:25 WBC 6.65 RBC 3.07 L Hgb 8.9 L Hct 28.0 L MCV 91.2 MCH 29.0 MCHC 31.8 L RDW Std Deviation 82.8 H RDW Coeff of [place] 26.3 H Plt Count 104 L MPV 10.8 Immature Gran % (Auto) 0.5 Neut % (Auto) 79.5 Lymph % (Auto) 9.8 [place] % (Auto) 9.8 Eos % (Auto) 0.2 Baso % (Auto) 0.2 Neut # (Auto) 5.30 Lymph # (Auto) 0.65 L [place] # (Auto) 0.65 Eos # (Auto) 0.01 Baso # (Auto) 0.01 Immature Gran # (Auto) 0.03 H Poikilocytosis Present Anisocytosis Present PT 16.2 H INR 1.6 H VBG pH VBG pCO2 VBG pO2 VBG HCO3 VBG O2 Saturation VBG Base Excess Sodium 138 Potassium 4.4 Chloride 112 H Carbon Dioxide 14 L Anion Gap 12 H BUN 50 H Creatinine 0.95 Est Cr Clr Drug Dosing Not Reportable Est GFR ( Amer) 66.0 Est GFR (Non-Af Amer) 57.0 BUN/Creatinine Ratio 52.6 H Glucose 148 H Calcium 9.0 Total Bilirubin 0.9 AST 38 ALT 33 Alkaline Phosphatase 179 H Troponin I High Sens 33.4 H B-Natriuretic Peptide Total Protein 7.2 Albumin 3.7 Globulin 3.5 Albumin/Globulin Ratio 1.1 Lipase 229 H SARS-CoV-2, RNA, NAAT Diagnostic Findings Chest X-Ray 12/04/21 11:33 SINGLE VIEW CHEST CLINICAL HISTORY: Atypical chest pain. FINDINGS: An AP, portable, upright chest radiograph is compared to study dated 08/08/2021 and correlated with chest CT dated 07/27/2021. The examination is degraded by portable technique and patient rotation. A hiatal hernia is noted. A 2-lead cardiac pacemaker is unchanged in position and partially obscures the left mid chest The heart is enlarged noting atherosclerotic calcification of the thoracic aorta. The pulmonary vasculature is noncongested. Chronic interstitial thickening is similar to previous. Scarring/atelectasis is noted at the lung bases. Question trace pleural effusions. No pneumothorax is seen. The skeletal structures are osteopenic. The bony thorax is grossly intact. IMPRESSION: 1. Cardiomegaly and cardiac pacemaker without radiographic evidence of congestive failure. 2. Suspect trace pleural effusions. ACT 112: Negative or not required by law. Electronically signed by: Isauro Mercado M.D. 12/04/2021 11:49 AM ECG Additional Comments: Vent. Rate : 122 BPM Atrial Rate : 150 BPM P-R Int : 000 ms QRS Dur : 156 ms QT Int : 402 ms P-R-T Axes : 000 -27 148 degrees QTc Int : 572 ms Atrial fibrillation with rapid ventricular response with premature ventricular or aberrantly conducted complexes Left bundle branch block Abnormal ECG When compared with ECG of 08-AUG-2021 19:54, Electronic ventricular pacemaker no longer apparent Code Status & VTE Plan Code Status Full code- discussed with the patient at bedside Supervising Physician Co-Signing Physician Notes I have seen and examined the patient and have discussed the case with the provider above. I agree with the assessment and plan as stated with the following exceptions. Initial acidosis appears to have been incorrect as her repeat ABG showed a normal pH without any intervention. Repeating the BMP to recheck the bicarb which was initially 14. She is reporting fatigue and lethargy for the past month. She has reportedly been getting increased doses of Lasix to treat leg swelling over the last few weeks. Per her daughter, who is a physician and has been setting out her medications, she has been noncompliant with taking her medications. Although initially she reported taking elevated doses of aspirin, her salicylate level was checked and normal. Daughter confirms that she actually takes Tylenol consistently. With an elevated INR will check a Tylenol level at this time (already had one dose in the ER today) and will check fibrinogen to ensure no developing DIC (also has low platelets). Although she has a severe wound on her RLE, this has been there for about one month and there is no purulent drainage or signs of gross infection/cellulitis. Will screen blood cultures and start doxycycline as above. Her elevated TSH may explain her cognitive slowing to a certain extent and just starting her back on her custodial dose of 75mcg PO daily before breakfast may help make her euthyroid again. Outpatient record review reveals several normal TSH levels in the last two years. She has no significant weight gain but does have some early satiety. Daughter reports mom was doing well when she was in assisted living earlier this spring, however, has been "going downhill" since she has come home from there. On exam she does not appear fluid overloaded and no diuretic was given today. She is reporting dyspnea with exertion which has worsened over the last few weeks. Cardiology repeating echocardiogram to evaluate for worsened LV function or valvular disease. Vitals reveal low normal BP and slightly elevated heart rate at 103bpm. She is oriented and able to follow instruction. Generally in NAD, WNWD, Lungs are clear to auscultation. Abdomen is soft, nontender and nondistended. RLE has an open wound that is several centimeters in diameter. There is calamine lotion on both legs over the wound, but no overt surrounding redness. There is trace swelling in her lower extremities but no pitting edema present. She is moving her arms and legs symmetrically and there is no gross focal neuromuscular deficit. She has sensation in her feet and no wounds on her feet bilaterally. CN 2-12 grossly intact. CXR reveals no overt pulmonary edema and no evidence of pneumonia or pneumothorax. There is no leukocytosis and platelets are 104K with a low normal baseline. INR is 1.6 and she is not on anticoagulation. There is no LFT elevation. Anemia is present but H/H is stable from prior levels. BUN and creatinine are unremarkable. Dig level is low. Urine tox screen is negative. A/P: 81 yo lethargic female with noncompliance with medication. It is likely she feels poorly from general noncompliance with medication and that, as suggested, her LV function has changed given this noncompliance. However, hypothyroidism is also contributing. Will ensure no occult infection is present and will check Lyme panel and blood cultures. It is also curious why her INR is elevated. Etiologies include but are not limited to vitamin K deficiency from malnutrition vs developing DIC. checking fibrinogen and trending INR in am. Nutrition consult. Discussed placement with her daughter who states patient is resistant to this. PT and OT to evaluate and make recommendations and case management will assist with options for transitions of care when closer to dicharge. Awaiting echo results per cardiology. DO James
[2021-12-04] MEDS ORDERED: NITROGLYCERIN 2% OINTMENT 30GM TUBE EXT ONE (14:05)
[2021-12-04] MEDS ORDERED: ACETAMINOPHEN 1000 MG/100 ML IV IV STA (14:18)
[2021-12-04] MEDS ORDERED: METOPROLOL SUCC 50MG EXT REL TAB PO STA (14:33)
[2021-12-04 14:49] LABS: Base Excess ABG -11.3 mEq/L (-9-1.8); HCO3 ABG 12 mmol/L (19-24); Oxygen Saturation ABG > 100.0 % (90-95); PCO2 ABG 20 mmHg (35-46); PO2 ABG 93 mmHg (80-95); pH ABG 7.37 (7.35-7.45)
[2021-12-04 15:09] LABS: Digoxin 0.4 ng/ml (0.8-2.0); Salicylate 18.3 mg/dl (3.0-30)
[2021-12-04 15:10] LABS: Allen Test Pos (Pos)
[2021-12-04 15:27] LABS: Appearance Urine Clear (Clear); Bacteria Urine Automated Negative (Negative); Bilirubin Urine Negative (Negative); Blood Urine Negative (Negative); Color Urine Yellow; Epithelial Cell Urine Auto 20-30 /lpf (0-5); Glucose Urine UA Negative (Negative); Ketones Urine Negative (Negative); Leukocyte Esterase Urine Trace (Negative); Nitrite Urine Negative (Negative); Protein Urine Trace (Negative); Specific Gravity Urine 1.018 (1.000-1.030); Urobilinogen Urine Negative (Negative)
[2021-12-04] MEDS ORDERED: GLUCAGON FOR INJ 1 MG VIAL SQ PRN (15:28)
[2021-12-04] MEDS ORDERED: GLUCOSE 40% GEL 15 GM TUBE PO PRN (15:28)
[2021-12-04] MEDS ORDERED: GLUCOSE 10 TAB/TUBE PO PRN (15:28)
[2021-12-04 15:54] LABS: Thyroid Stimulating Hormone 18.129 uIu/ml (0.300-4.500)
[2021-12-04 15:55] LABS: Amphetamines+Metham, Urine Neg (Neg); Barbiturates, Urine Neg (Neg); Benzodiazepine, Urine Neg (Neg); Cocaine, Urine Neg (Neg); MDMA (Ecstacy), Urine Neg (Neg); Methadone, Urine Neg (Neg); Opiate, Urine Neg (Neg); Phencyclidine, Urine Neg (Neg)
[2021-12-04 16:27] LABS: T4 Free Thyroxine 0.52 ng/dl (0.61-1.60)
[2021-12-04] MEDS ORDERED: FUROSEMIDE 40 MG/4 ML VIAL IV SCH (17:00)
--- NOTE | 2021-12-04 17:41 | Cardiology Consultation ---
Date of Consultation December 04, 2021 Assessment & Plan (1) Metabolic acidosis: (2) Generalized weakness: (3) Encephalopathy: (4) Atrial fibrillation with RVR: Plan Patient is a complex 81-year-old female with medical issues as outlined who presents with generalized weakness malaise and encephalopathy poor p.o. intake with marked metabolic derangement by laboratory testing. No overt signs of left heart failure by chest x-ray and exam but with lower extremity edema Recommendations: Continue metabolic evaluation. Echocardiogram will be ordered to reassess LV systolic function now with sustained atrial fibrillation and elevated rates assess for declining LV function and change in valvular function Blood cultures ordered to exclude sepsis Continue cardiac medications but may need to discontinue digoxin given anorexia May need to consider repeat AV junction ablation for rate control given poor tolerance of medication Would not administer additional diuretics at this time Cardiology will follow as clinical course progresses History of Present Illness Reason for Consultation: Diffuse fatigue weakness atrial fibrillation with elevated ventricular response Requesting Physician: Dr. Ramirez Attending Physician: Dana Ramirez, DO History of Present Illness Patient is a 81-year-old female seen in the outpatient cardiovascular clinic earlier today please refer to outpatient note. Her underlying complex past history is notable for 1. Drug-induced valvular pathology 2. History of symptomatic poorly tolerated paroxysmal atrial fibrillation status post multiple cardioversions, last in February 2014, now with chronic persistent atrial fibrillation. a. Sinus node dysfunction, Tachy-Mick Syndrome, s/p 10/18/2009 dual chamber pacemaker implantation, status post generator exchange on December 13, 2020 b. Patient intolerant to past use of Sotalol and Tikosyn. c. Amiodarone failed to maintain sinus d. Status post September 2014 partial/modified AVJ ablation at [facility] 3. Contraindications to anticoagulation - frequent falls, April 2014 large rectus sheath hematoma with extraperitoneal pelvic blood, past subarachnoid hemorrhage in November 2009 4. Chronic systolic congestive heart failure 5. Chronic diastolic congestive heart failure 6. Hypertension, hypertensive heart disease with past labile hypertension. 7. Type 2 diabetes mellitus with diabetic neuropathy 8. Anxiety disorder 9. Dyslipidemia 10. Obesity 11. Hypothyroidism 12. Gastroesophageal reflux 13. Iron deficiency anemia 14. Gout 15. Chronic back pain, lumbosacral neuritis 16. Vitamin D deficiency 17. Renal lithiasis 18. Osteoarthritis 19. Osteoporosis 20. Macular degeneration 21 Prior vena cava filter Patient seen in the outpatient clinic noting increasing symptoms of diminished ability to ambulate lethargy and confusion. Denies fevers chills chest pains or shortness of breath. No overt bleeding difficulties. No headaches or visual changes. Patient notes poor p.o. intake and appetite has been taking aspirin for ongoing pain but no other [id number] medications or supplements. Due to concerns regarding declining functional capacity patient referred for inpatient management and evaluation Initial laboratory studies notable for metabolic acidosis Atrial fibrillation with mildly elevated ventricular response rate Allergies Allergy/AdvReac Type Severity Reaction Status Date / Time citalopram Allergy Unknown Unknown Verified 08/08/21 20:42 paroxetine Allergy Unknown Unknown Verified 08/08/21 20:42 Sulfa (Sulfonamide Allergy Unknown TOLERATES Verified 08/08/21 20:42 Antibiotics) LASIX venom-wasp protein Allergy Unknown HIVES Verified 08/08/21 20:42 celecoxib AdvReac Mild N/V Verified 08/08/21 20:42 Home Medications Medication Instructions Recorded Confirmed Type atorvastatin 40 mg tablet 40 mg PO DAILY 12/13/20 12/04/21 History levothyroxine 75 mcg tablet 75 mcg PO DAILY 12/13/20 12/04/21 History losartan 50 mg tablet 50 mg PO DAILY 12/13/20 12/04/21 History magnesium oxide 400 mg PO DAILY 12/13/20 12/04/21 History spironolactone 25 mg tablet 25 mg PO DAILY 12/13/20 12/04/21 History allopurinol 300 mg tablet 300 mg PO DAILY 03/05/21 12/04/21 History cholecalciferol (vitamin D3) 25 25 mcg PO DAILY 03/05/21 12/04/21 History mcg (1,000 unit) tablet digoxin 125 mcg (0.125 mg) tablet 125 mcg PO DAILY@199903/05/21 12/04/21 Hist ory epinephrine 0.3 mg/0.3 mL 0.3 mg IM Q4H PRN Allergic Reaction 03/05/21 12/04/21 History injection, auto-injector insulin lispro 100 unit/mL 1 unit (0.01 mL) subcut UD #0 mL 06/16/21 12/04/21 Rx subcutaneous pen (Humalog KwikPen (U-100) Insulin) insulin glargine 100 unit/mL (3 25 unit subcut QAM 06/30/21 12/04/21 History mL) subcutaneous pen (Lantus Solostar U-100 Insulin) metoprolol succinate 100 mg 100 mg PO BID #60 tabs 08/08/21 12/04/21 Rx tablet,extended release 24 hr furosemide 40 mg tablet 60 mg PO DAILY 12/04/21 12/04/21 History gabapentin 300 mg capsule 300 mg PO HS 12/04/21 12/04/21 History Patient History Medical History Afib Cerebral hemorrhage "2009 left hemiparesis" Chronic anemia Chronic combined systolic and diastolic CHF (congestive heart failure) Diabetes mellitus, type II Frequent falls hx of subarachnoid hemorrhage 2009, large retroperitoneal bleed 2014 walker dependent Gout Hematoma of rectus sheath 2015 Hemiplegia History of - cerebrovascular accident HLD (hyperlipidemia) HTN (hypertension) Hypothyroidism Pacemaker Presence of IVC filter Tachy-mick syndrome Surgical History Status post appendectomy Status post cardiac pacemaker procedure Status post cataract extraction Status post cholecystectomy Status post hysterectomy Status post insertion of inferior vena caval filter Family History Daughter Breast cancer Mother Cancer pancreatic Father Heart disease Social History Smoking Status: Never smoker Second Hand Exposure: No; Hx Alcohol Use: No Hx Substance Use: No Preferred Language: Armenian Communication Ability: Effective Dip Stand Loader Required: No Beliefs That Will Affect Care: None marital status: Current Living Situation: Spouse Current Living Situation Comment: patient lives at home with , who is her primary caregiver Other Information That Helps Us Care for You: No Feels Safe at Home: Yes Safety Concerns: Feels Safe At This Time Assistive Devices: Glasses and Walker Review of Systems Review of Systems: All systems reviewed & are unremarkable except as noted in HPI & below Physical Exam Constitutional: + frail appearing; no acute distress Eyes: PERRL, conjunctivae normal, anicteric sclerae ENMT: external ear and nose normal, oropharynx normal Respiratory: normal respiratory effort, lungs clear to auscultation Cardiovascular: Rate/Rhythm: + irregularly irregular Heart Sounds: + murmur (Grade 2 or 6 systolic murmur no diastolic murmur.) Palpation: + abnormal PMI (Displaced laterally) Extremities: normal capillary refill Gastrointestinal (Abdomen): normal bowel sounds, soft, nontender, no hepatosplenomegaly Results & Data ([facility]) Vital Signs (Past 12 Hours) Vital Signs Temp Pulse Pulse Resp BP BP Pulse Ox 12/04/21 16:39 12/04/21 16:39 37 C 106 H 16 97/63 L 97 12/04/21 16:18 12/04/21 15:00 110 H 14 116/79 98 12/04/21 14:30 117 H 13 100 12/04/21 14:00 119 H 16 98 12/04/21 13:30 108 H 14 95 12/04/21 13:00 107 H 9 L 99 12/04/21 12:30 126 H 14 100 12/04/21 12:28 131 H 18 99 12/04/21 15:05 16 12/04/21 12:28 116/79 12/04/21 12:27 130 H 14 100 12/04/21 12:20 123 H 14 100 12/04/21 12:10 124 H 14 100 12/04/21 12:00 132 H 14 99 12/04/21 11:50 119 H 14 100 12/04/21 11:40 132 H 15 100 12/04/21 11:30 120 H 12 100 12/04/21 11:29 120 H 15 99 12/04/21 11:33 120 H 14 95 12/04/21 13:15 108 H 116/79 12/04/21 11:20 36.7 C 123 H 18 97/73 L 95 O2 Del Method 12/04/21 16:39 Room Air 12/04/21 16:39 Room Air 12/04/21 16:18 Room Air 12/04/21 15:00 12/04/21 14:30 12/04/21 14:00 12/04/21 13:30 12/04/21 13:00 12/04/21 12:30 12/04/21 12:28 12/04/21 15:05 12/04/21 12:28 12/04/21 12:27 12/04/21 12:20 12/04/21 12:10 12/04/21 12:00 12/04/21 11:50 12/04/21 11:40 12/04/21 11:30 12/04/21 11:29 12/04/21 11:33 Room Air 12/04/21 13:15 12/04/21 11:20 Room Air Laboratory Results Laboratory Results - last 24 hr 12/04/21 12/04/21 12/04/21 11:25 11:25 11:25 WBC 6.65 RBC 3.07 L Hgb 8.9 L Hct 28.0 L MCV 91.2 MCH 29.0 MCHC 31.8 L RDW Std Deviation 82.8 H RDW Coeff of Chano 26.3 H Plt Count 104 L MPV 10.8 Immature Gran % (Auto) 0.5 Neut % (Auto) 79.5 Lymph % (Auto) 9.8 Catron % (Auto) 9.8 Eos % (Auto) 0.2 Baso % (Auto) 0.2 Neut # (Auto) 5.30 Lymph # (Auto) 0.65 L Catron # (Auto) 0.65 Eos # (Auto) 0.01 Baso # (Auto) 0.01 Immature Gran # (Auto) 0.03 H Poikilocytosis Present Anisocytosis Present PT 16.2 H INR 1.6 H ABG pH ABG pCO2 ABG pO2 ABG HCO3 ABG O2 Saturation ABG Base Excess Peter Test VBG pH VBG pCO2 VBG pO2 VBG HCO3 VBG O2 Saturation VBG Base Excess Oxygen Given Sodium 138 Potassium 4.4 Chloride 112 H Carbon Dioxide 14 L Anion Gap 12 H BUN 50 H Creatinine 0.95 Est Cr Clr Drug Dosing Not Reportable Est GFR ( Amer) 66.0 Est GFR (Non-Af Amer) 57.0 BUN/Creatinine Ratio 52.6 H Glucose 148 H POC Glucose Lactate Calcium 9.0 Total Bilirubin 0.9 AST 38 ALT 33 Alkaline Phosphatase 179 H Troponin I High Sens 33.4 H B-Natriuretic Peptide Total Protein 7.2 Albumin 3.7 Globulin 3.5 Albumin/Globulin Ratio 1.1 Lipase 229 H TSH Free T4 Urine Color Urine Appearance Urine pH Ur Specific [place] Urine Protein Urine Glucose (UA) Urine Ketones Urine Blood Urine Nitrite Urine Bilirubin Urine Urobilinogen Ur Leukocyte Esterase Urine WBC (Auto) Urine RBC (Auto) U Hyaline Cast (Auto) U Epithel Cells (Auto) Urine Bacteria (Auto) Digoxin Salicylates Urine Opiates Screen Ur Methadone, Qual Urine Barbiturates Ur Phencyclidine (PCP) U Amphetamin/Meth Scrn MDMA (Ecstasy) Screen U Benzodiazepines Scrn Ur Cocaine Metabolite U Marijuana (THC) Screen SARS-CoV-2, RNA, NAAT 12/04/21 12/04/21 12/04/21 11:44 11:50 11:50 WBC RBC Hgb Hct MCV MCH MCHC RDW Std Deviation RDW Coeff of Chano Plt Count MPV Immature Gran % (Auto) Neut % (Auto) Lymph % (Auto) Catron % (Auto) Eos % (Auto) Baso % (Auto) Neut # (Auto) Lymph # (Auto) Catron # (Auto) Eos # (Auto) Baso # (Auto) Immature Gran # (Auto) Poikilocytosis Anisocytosis PT INR ABG pH ABG pCO2 ABG pO2 ABG HCO3 ABG O2 Saturation ABG Base Excess Peter Test VBG pH 7.29 L VBG pCO2 29 L VBG pO2 25 VBG HCO3 14 VBG O2 Saturation < 60.0 VBG Base Excess -11.2 Oxygen Given Sodium Potassium Chloride Carbon Dioxide Anion Gap BUN Creatinine Est Cr Clr Drug Dosing Est GFR ( Amer) Est GFR (Non-Af Amer) BUN/Creatinine Ratio Glucose POC Glucose Lactate Calcium Total Bilirubin AST ALT Alkaline Phosphatase Troponin I High Sens B-Natriuretic Peptide 2883 H Total Protein Albumin Globulin Albumin/Globulin Ratio Lipase TSH Free T4 Urine Color Urine Appearance Urine pH Ur Specific [place] Urine Protein Urine Glucose (UA) Urine Ketones Urine Blood Urine Nitrite Urine Bilirubin Urine Urobilinogen Ur Leukocyte Esterase Urine WBC (Auto) Urine RBC (Auto) U Hyaline Cast (Auto) U Epithel Cells (Auto) Urine Bacteria (Auto) Digoxin Salicylates Urine Opiates Screen Ur Methadone, Qual Urine Barbiturates Ur Phencyclidine (PCP) U Amphetamin/Meth Scrn MDMA (Ecstasy) Screen U Benzodiazepines Scrn Ur Cocaine Metabolite U Marijuana (THC) Screen SARS-CoV-2, RNA, NAAT NEGATIVE 12/04/21 12/04/21 12/04/21 14:27 14:27 14:27 WBC RBC Hgb Hct MCV MCH MCHC RDW Std Deviation RDW Coeff of Chano Plt Count MPV Immature Gran % (Auto) Neut % (Auto) Lymph % (Auto) Catron % (Auto) Eos % (Auto) Baso % (Auto) Neut # (Auto) Lymph # (Auto) Catron # (Auto) Eos # (Auto) Baso # (Auto) Immature Gran # (Auto) Poikilocytosis Anisocytosis PT INR ABG pH 7.37 ABG pCO2 20 L ABG pO2 93 ABG HCO3 12 L ABG O2 Saturation > 100.0 H ABG Base Excess -11.3 L Peter Test Pos VBG pH VBG pCO2 VBG pO2 VBG HCO3 VBG O2 Saturation VBG Base Excess Oxygen Given ROOM AIR Sodium Potassium Chloride Carbon Dioxide Anion Gap BUN Creatinine Est Cr Clr Drug Dosing Est GFR ( Amer) Est GFR (Non-Af Amer) BUN/Creatinine Ratio Glucose POC Glucose Lactate 1.0 Calcium Total Bilirubin AST ALT Alkaline Phosphatase Troponin I High Sens 33.1 H B-Natriuretic Peptide Total Protein Albumin Globulin Albumin/Globulin Ratio Lipase TSH Free T4 Urine Color Urine Appearance Urine pH Ur Specific [place] Urine Protein Urine Glucose (UA) Urine Ketones Urine Blood Urine Nitrite Urine Bilirubin Urine Urobilinogen Ur Leukocyte Esterase Urine WBC (Auto) Urine RBC (Auto) U Hyaline Cast (Auto) U Epithel Cells (Auto) Urine Bacteria (Auto) Digoxin Salicylates Urine Opiates Screen Ur Methadone, Qual Urine Barbiturates Ur Phencyclidine (PCP) U Amphetamin/Meth Scrn MDMA (Ecstasy) Screen U Benzodiazepines Scrn Ur Cocaine Metabolite U Marijuana (THC) Screen SARS-CoV-2, RNA, NAAT 12/04/21 12/04/21 12/04/21 14:27 14:28 14:28 WBC RBC Hgb Hct MCV MCH MCHC RDW Std Deviation RDW Coeff of Chano Plt Count MPV Immature Gran % (Auto) Neut % (Auto) Lymph % (Auto) Catron % (Auto) Eos % (Auto) Baso % (Auto) Neut # (Auto) Lymph # (Auto) Catron # (Auto) Eos # (Auto) Baso # (Auto) Immature Gran # (Auto) Poikilocytosis Anisocytosis PT INR ABG pH ABG pCO2 ABG pO2 ABG HCO3 ABG O2 Saturation ABG Base Excess Peter Test VBG pH VBG pCO2 VBG pO2 VBG HCO3 VBG O2 Saturation VBG Base Excess Oxygen Given Sodium Cancelled Potassium Cancelled Chloride Cancelled Carbon Dioxide Cancelled Anion Gap Cancelled BUN Cancelled Creatinine Cancelled Est Cr Clr Drug Dosing Cancelled Est GFR ( Amer) Cancelled Est GFR (Non-Af Amer) Cancelled BUN/Creatinine Ratio Cancelled Glucose Cancelled POC Glucose Lactate Calcium Cancelled Total Bilirubin AST ALT Alkaline Phosphatase Troponin I High Sens B-Natriuretic Peptide Total Protein Albumin Globulin Albumin/Globulin Ratio Lipase TSH 18.129 H Free T4 0.52 L Urine Color Urine Appearance Urine pH Ur Specific [place] Urine Protein Urine Glucose (UA) Urine Ketones Urine Blood Urine Nitrite Urine Bilirubin Urine Urobilinogen Ur Leukocyte Esterase Urine WBC (Auto) Urine RBC (Auto) U Hyaline Cast (Auto) U Epithel Cells (Auto) Urine Bacteria (Auto) Digoxin 0.4 L Salicylates 18.3 Urine Opiates Screen Ur Methadone, Qual Urine Barbiturates Ur Phencyclidine (PCP) U Amphetamin/Meth Scrn MDMA (Ecstasy) Screen U Benzodiazepines Scrn Ur Cocaine Metabolite U Marijuana (THC) Screen SARS-CoV-2, RNA, NAAT 12/04/21 12/04/21 12/04/21 14:54 14:54 17:01 WBC RBC Hgb Hct MCV MCH MCHC RDW Std Deviation RDW Coeff of Chano Plt Count MPV Immature Gran % (Auto) Neut % (Auto) Lymph % (Auto) Catron % (Auto) Eos % (Auto) Baso % (Auto) Neut # (Auto) Lymph # (Auto) Catron # (Auto) Eos # (Auto) Baso # (Auto) Immature Gran # (Auto) Poikilocytosis Anisocytosis PT INR ABG pH ABG pCO2 ABG pO2 ABG HCO3 ABG O2 Saturation ABG Base Excess Peter Test VBG pH VBG pCO2 VBG pO2 VBG HCO3 VBG O2 Saturation VBG Base Excess Oxygen Given Sodium Potassium Chloride Carbon Dioxide Anion Gap BUN Creatinine Est Cr Clr Drug Dosing Est GFR ( Amer) Est GFR (Non-Af Amer) BUN/Creatinine Ratio Glucose POC Glucose 156 H Lactate Calcium Total Bilirubin AST ALT Alkaline Phosphatase Troponin I High Sens B-Natriuretic Peptide Total Protein Albumin Globulin Albumin/Globulin Ratio Lipase TSH Free T4 Urine Color Yellow Urine Appearance Clear Urine pH 5.0 Ur Specific [place] 1.018 Urine Protein Trace H Urine Glucose (UA) Negative Urine Ketones Negative Urine Blood Negative Urine Nitrite Negative Urine Bilirubin Negative Urine Urobilinogen Negative Ur Leukocyte Esterase Trace H Urine WBC (Auto) 1-5 Urine RBC (Auto) 5-10 H U Hyaline Cast (Auto) 1-5 U Epithel Cells (Auto) 20-30 H Urine Bacteria (Auto) Negative Digoxin Salicylates Urine Opiates Screen Neg Ur Methadone, Qual Neg Urine Barbiturates Neg Ur Phencyclidine (PCP) Neg U Amphetamin/Meth Scrn Neg MDMA (Ecstasy) Screen Neg U Benzodiazepines Scrn Neg Ur Cocaine Metabolite Neg U Marijuana (THC) Screen Neg SARS-CoV-2, RNA, NAAT Diagnostic Findings Chest x-ray Marked cardiomegaly without infiltrate or pulmonary edema edema ECG Additional Comments: EKG 12/04/2021 atrial fibrillation with elevated trickle response rate 122 bpm with left bundle branch block configuration
[2021-12-04] MEDS: INSULIN ASPART PER UNIT SC SCH ×2 (17:44→21:26)
[2021-12-04] MEDS: DOXYCYCLINE HYCLATE 100 MG CAP PO SCH (18:20)
[2021-12-04] MEDS ORDERED: KETOROLAC TROMETHAMINE 15 MG/ML VIAL IV ONE (19:15)
[2021-12-04] MEDS ORDERED: FAMOTIDINE 20 MG in SYRINGE 3 ML IV ONE (19:30)
[2021-12-04] MEDS ORDERED: DIGOXIN 0.125 MG TAB PO SCH (20:00)
[2021-12-04 20:20] LABS: BUN Creatinine Ratio 51.5 (10-20); Calcium 8.8 mg/dl (8.5-10.1); Creatinine Clr Calc Pharmacy 37.2 ml/min; Est GFR (African American) 64.4 ml/min; Est GFR (Non-African American) 55.5 ml/min; Potassium 4.3 mmol/L (3.5-5.1); Troponin I High Sensitivity 29.7 pg/ml (0-14)
--- NOTE | 2021-12-04 20:21 | CT Scan Report ---
CT head/brain wo con CLINICAL HISTORY: 81 years-old Female with lethargy. Acutely altered mental status TECHNIQUE: Multiple axial CT images of the head were obtained without contrast. A dose lowering tech nique was utilized adhering to the principles of ALARA. CT DOSE: 537.48 mGy.cm COMPARISON: Head CT 08/08/2021 FINDINGS: No acute intracranial hemorrhage, midline shift, intracranial mass, hydrocephalus, territorial ischem ia or abnormal extra-axial collection. Age-related involutional changes with ex vacuo ventriculomegal y. White matter hypodensities suggest chronic microvascular ischemic disease. Senescent calcification s of the lentiform nuclei. Chronic left cerebellar infarct. The calvarium is intact. Polypoid mucosal thickening of the left sphenoid sinus. Unremarkable soft t issues. Prior bilateral lens repair is suggested. IMPRESSION: No acute intracranial abnormality. ACT 112: Negative or not required by law. The above report was generated using voice recognition software. It may contain grammatical, syntax o r spelling errors. Electronically signed by: Sarthak Quigley M.D. 12/04/2021 8:18 PM
[2021-12-04] MEDS ORDERED: STAT IV STA (20:31)
[2021-12-04] MEDS ORDERED: SODIUM BICARBONATE 8.4% 150 MEQ in DEXTROSE 5% 1,000 ML IV SCH (20:45)
[2021-12-04] MEDS ORDERED: GABAPENTIN 300 MG CAP PO SCH (21:00)
[2021-12-04] MEDS: ACETAMINOPHEN 500 MG TAB PO SCH (21:13)
[2021-12-04] MEDS: CHOLECALCIFEROL 1,000 UNITS 25 MCG TAB PO SCH (21:14)
[2021-12-04] MEDS: allopurinoL 300 MG TAB PO SCH (21:14)
[2021-12-04] MEDS: ATORVASTATIN 40 MG TAB PO SCH (21:14)
[2021-12-04] MEDS: METOPROLOL SUCC 50MG EXT REL TAB PO SCH (21:15)
[2021-12-04] MEDS: LANTUS PER UNIT CHARGE SQ SCH (21:26)
[2021-12-04 21:29] LABS: Lyme Ab IgG w/WB Rflx Negative (Negative); Lyme Ab IgM w/WB Rflx Negative (Negative)
[2021-12-04 22:03] LABS: Fibrinogen 201 mg/dl (184-400)
[2021-12-04 22:14] LABS: Creatinine Urine Random 56.7 mg/dl; Protein Creatinine Ratio Urine 0.9 (0-0.2); Total Protein Urine Random 53.2 mg/dl (0-11.9)
[2021-12-04] MEDS ORDERED: HYDROmorphone INJ 0.5 MG/0.5 ML SYR IV STA (22:17)
[2021-12-04] MEDS ORDERED: ACETAMINOPHEN 1000 MG/100 ML IV IV SCH (22:30)
[2021-12-04] MEDS ORDERED: ACETAMINOPHEN 500 MG TAB PO SCH ×2 (22:30)
[2021-12-05] MEDS: ACETAMINOPHEN 500 MG TAB PO SCH ×3 (06:18→22:37)
[2021-12-05] MEDS: DOXYCYCLINE HYCLATE 100 MG CAP PO SCH ×2 (06:18→18:14)
[2021-12-05] MEDS ORDERED: LEVOTHYROXINE SODIUM 75 MCG TABLET PO SCH (06:30)
[2021-12-05 07:29] LABS: Hematocrit (blood only) 26.2 % (34.1-44.9); Hemoglobin 8.5 g/dl (12.0-16.0); Mean Corpuscular Hemoglobin 29.1 pg (25.0-34.0); Mean Corpuscular Hgb Conc 32.4 g/dL (32.0-36.0); Mean Corpuscular Volume 89.7 fL (80.0-100.0); Mean Platelet Volume 10.7 fL (9.4-12.3); Platelet Count 81 K/uL (130-400); RDW Coefficient of Variation 26.3 % (11.5-14.5); RDW Standard Deviation 82.7 fL (36.4-46.3); Red Blood Count 2.92 M/uL (3.93-5.22); White Blood Count 5.29 K/ul (4.8-10.8)
[2021-12-05 07:38] LABS: INR 1.7 (0.9-1.1); Prothrombin Time 17.4 Seconds (9.0-12.0)
[2021-12-05 07:48] LABS: BUN Creatinine Ratio 49.5 (10-20); Calcium 8.3 mg/dl (8.5-10.1); Chol HDL Ratio 2.5 (0-5); Creatinine Clr Calc Pharmacy 34.4 ml/min; Est GFR (African American) 58.5 ml/min; Est GFR (Non-African American) 50.5 ml/min; Magnesium 1.9 mg/dl (1.7-2.4); Potassium 4.1 mmol/L (3.5-5.1)
[2021-12-05 08:05] LABS: Estimated Average Glucose 177 mg/dl; Hemoglobin A1C 7.8 % (4.5-5.6)
[2021-12-05] MEDS: INSULIN ASPART PER UNIT SC SCH ×4 (08:13→21:09)
[2021-12-05] MEDS: LANTUS PER UNIT CHARGE SQ SCH ×2 (08:16→22:23)
[2021-12-05] MEDS: MAGNESIUM OXIDE 400 MG TAB PO SCH (08:17)
[2021-12-05] MEDS: METOPROLOL SUCC 50MG EXT REL TAB PO SCH ×2 (08:20→21:02)
--- NOTE | 2021-12-05 08:53 | Cardiology Progress Note ---
Date of Service December 05, 2021 Assessment & Plan (1) Metabolic acidosis: (2) Generalized weakness: (3) Encephalopathy: (4) Atrial fibrillation with RVR: Plan Patient is a complex 81-year-old female with medical issues as outlined who presents with generalized weakness malaise and encephalopathy poor p.o. intake with marked metabolic derangement by laboratory testing. No overt signs of left heart failure by chest x-ray and exam but with lower extremity edema Recommendations: Continue Metabolic evaluation. Echocardiogram to reassess LV systolic function and valvular status results pending Blood cultures ordered to exclude sepsis- pending Continue cardiac medications, but will discontinue digoxin as a possible cause of her anorexia ? GI referral for EGD to assess difficulty swallowing and eating Would not administer additional diuretics at this time Case discussed with Dr. Palmer. Cardiology will follow as clinical course progresses Admission and Anticipated Discharge Date Admission Date: December 04, 2021 Supervising Physician Co-Signing Physician Notes Patient was seen and personally examined. No acute complaints today with heart rate trending towards better control on usual medications. Echocardiogram reflects mild decline in overall function since earlier this year with but similar to prior studies in past with biatrial enlargement mitral and tricuspid insufficiency and dilated IVC Suspect patient's metabolic acidosis secondary to ketosis and poor p.o. intake in addition to reduced cardiac output. Patient notes unable to eat at home with gagging choking and vomiting As above would recommend consideration for GI evaluation. We will discontinue digoxin. Continue metoprolol succinate 100 mg twice per day with possible need for further upward titration Subjective Medically complex 81-year-old female who initially presented with generalized weakness, malaise, and encephalopathy. Found to have marked metabolic derangement. Thought to possibly be due to poor p.o. intake. Signs of left- sided heart failure by chest x-ray but noted lower extremity edema. Noted to be in AF with RVR (prior known history). Pace maker in placed (last gen change 11/2020). Echocardiogram: Pending Blood cultures: Pending Thyroid: TSH 18.129, free T4 0.52 Tele: AF 90s, conduction changes throughout telemetry- seems to be rate dependent, PVCs I&O: -500 mL Weight: 53 kg Upon entrance in to the room, patient sitting on side of bed working with PT. Patient seems to be somewhat of a poor historian and was very vague with her description of symptoms. Overall noted discomfort in her lungs that has been constant for her over the last month. Denies chest pain. No palpitations. Feels fatigued and weak. Notes pain in her feet/legs with movement/ambulation. Noted an improvement in lower extremity edema on exam, but does have chronic venous statsis changes. She denied any dizziness or syncope. No palpitations. Having difficulty eating- notes coughing and gagging with meals. Review of Systems Review of Systems: All systems reviewed & are unremarkable except as noted in HPI & below Physical Exam Constitutional: + frail appearing; no acute distress Eyes: PERRL, conjunctivae normal, anicteric sclerae ENMT: external ear and nose normal, oropharynx normal Respiratory: normal respiratory effort, lungs clear to auscultation Cardiovascular: Rate/Rhythm: regular rate and + irregularly irregular Heart Sounds: + murmur (Grade 2 or 6 systolic murmur no diastolic murmur.) Palpation: + abnormal PMI (Displaced laterally) Extremities: normal capillary refill Gastrointestinal (Abdomen): normal bowel sounds, soft, nontender, no hepatosplenomegaly Results & Data ([facility]) Vital Signs (Past 12 Hours) Vital Signs Temp Pulse Pulse Resp BP Pulse Ox O2 Del Method 12/05/21 07:58 81 16 98/65 L 99 Room Air 12/05/21 04:00 36.5 C 67 18 107/70 98 Room Air 12/04/21 22:36 36.5 C 85 20 91/62 L 100 Room Air 12/04/21 21:13 95 H Laboratory Results Cardiac Enzymes 12/04/21 12/04/21 12/04/21 Range/Units 11:25 11:50 14:27 AST 38 (13-39) U/L Troponin I High Sens 33.4 H 33.1 H (0-14) pg/ml B-Natriuretic Peptide 2883 H (0-100) pg/ml 12/04/21 12/05/21 Range/Units 19:02 01:42 AST (13-39) U/L Troponin I High Sens 29.7 H 32.8 H (0-14) pg/ml B-Natriuretic Peptide (0-100) pg/ml Coagulation 12/04/21 12/04/21 12/05/21 Range/Units 11:25 11:50 07:09 PT 16.2 H 17.4 H (9.0-12.0) Seconds B-Natriuretic Peptide 2883 H (0-100) pg/ml Lipids 12/05/21 Range/Units 07:09 Triglycerides 75 (0-150) mg/dl Cholesterol 65 (0-200) mg/dl HDL Cholesterol 26 mg/dl Cholesterol/HDL Ratio 2.5 (0-5) CBC 12/04/21 12/05/21 Range/Units 11:25 07:09 WBC 6.65 5.29 (4.8-10.8) K/ul RBC 3.07 L 2.92 L (3.93-5.22) M/uL Hgb 8.9 L 8.5 L (12.0-16.0) g/dl Hct 28.0 L 26.2 L (34.1-44.9) % Plt Count 104 L 81 L (130-400) K/uL Neut # (Auto) 5.30 (1.4-6.5) K/uL Lymph # (Auto) 0.65 L (1.2-3.4) K/uL [place] # (Auto) 0.65 (0.24-0.82) K/uL Eos # (Auto) 0.01 (0-0.50) K/uL Baso # (Auto) 0.01 (0-0.2) K/uL Comprehensive Metabolic Panel 12/04/21 12/04/21 12/04/21 Range/Units 11:25 14:28 19:02 Sodium 138 Cancelled 137 (136-145) mmol/L Potassium 4.4 Cancelled 4.3 (3.5-5.1) mmol/L Chloride 112 H Cancelled 112 H (98-107) mmol/L Carbon Dioxide 14 L Cancelled 13 L (21-32) mmol/L BUN 50 H Cancelled 50 H (6-23) mg/dl Creatinine 0.95 Cancelled 0.97 (0.6-1.2) mg/dl Glucose 148 H Cancelled 150 H (70-99(Fasting)) mg/dl Calcium 9.0 Cancelled 8.8 (8.5-10.1) mg/dl AST 38 (13-39) U/L ALT 33 (7-52) U/L Alkaline Phosphatase 179 H (34-104) U/L Total Protein 7.2 (6.0-8.3) gm/dl Albumin 3.7 (3.4-5.0) gm/dl 12/05/21 Range/Units 07:09 Sodium 137 (136-145) mmol/L Potassium 4.1 (3.5-5.1) mmol/L Chloride 112 H (98-107) mmol/L Carbon Dioxide 17 L (21-32) mmol/L BUN 52 H (6-23) mg/dl Creatinine 1.05 (0.6-1.2) mg/dl Glucose 96 (70-99(Fasting)) mg/dl Calcium 8.3 L (8.5-10.1) mg/dl AST (13-39) U/L ALT (7-52) U/L Alkaline Phosphatase (34-104) U/L Total Protein (6.0-8.3) gm/dl Albumin (3.4-5.0) gm/dl Intake and Output 12/04/21 12/05/21 12/05/21 22:59 06:59 14:59 Output Total 350 / 500 150 / 500 Balance -350 / -500 -150 / -500 Output: Urine Amount (Catheter) 350 / 500 150 / 500 Gonzalez/Indwelling 350 / 500 150 / 500 Other: Other Intake Source Sips Weight 53 kg 53 kg Weight Measurement Method Built in [facility] Built in [facility]
[2021-12-05] MEDS ORDERED: FUROSEMIDE 40 MG/4 ML VIAL IV SCH (09:00)
--- NOTE | 2021-12-05 09:39 | Electrocardiogram Report ---
Test Reason : Blood Pressure : / mmHG Vent. Rate : 088 BPM Atrial Rate : 111 BPM P-R Int : 000 ms QRS Dur : 166 ms QT Int : 434 ms P-R-T Axes : 000 -28 153 degrees QTc Int : 525 ms Atrial fibrillation with premature ventricular or aberrantly conducted complexes Left bundle branch block Abnormal ECG When compared with ECG of 04-DEC-2021 11:28, No significant change was found Confirmed by Naren Nunes ([id number]) on 12/05/2021 9:39:10 AM Referred By: REFERRED SELF Confirmed By:Naren Nunes
--- NOTE | 2021-12-05 11:25 | Hospitalist Progress Note ---
Date of Service December 05, 2021 Assessment & Plan (1) Metabolic acidosis: Plan: - Concern for salicylate toxicity vs starvation ketoacidosis. Has h/o excess ASA ingestion for past month but salicylate level WNL. - Bicarb improving on bicarb drip - nephrology eval pending (2) Diastolic heart failure: Plan: - doesn't look overtly hypervolemic currently. Cardio following. - Echo with EF 40-45% with severe biatrial dilation, septal motion abnormality consistent with conduction abnormality, mod-sev MR, mod-sev TR, RVSP 40-50 mmHg - monitor on tele. monitor volume status. BNP elevated. trop trend flat (3) Elevated troponin: Plan: trop trend flat, denies chest pain. Cardio following (4) Afib: Plan: -Chronic, not on anticoagulation secondary to frequent falls, history of subarachnoid hemorrhage as per HPI -Rate controlled on Toprol succinate BID - Digoxin discontinued per cardio (5) Generalized weakness: (6) Ambulatory dysfunction: Plan: - PT OT eval (7) Type II diabetes mellitus, uncontrolled: Plan: - Last A1C = 8.2 on 08/28 - Continue lantus, SSI, accucheck - liberalize diet if poor oral intake (8) Hypothyroidism: Plan: - TSH low, T4 high. Will increase dose of levothyroxine. Recheck TFT in 4-6 weeks for further dose adjustment (9) Noncompliance: Plan RLE wound- on doxycycline. WOCN eval. monitor for improvement. Thrombocytopenia- will monitor, no evidence of bleeding. Tick borne panel negative so far. Blood clx pending Chronic anemia- Hb stable, will monitor Consult GI as per cardio recommendations given her poor oral intake and dysphagia. DVT ppx: sc heparin Dispo- PCU tele Admission and Anticipated Discharge Date Admission Date: December 04, 2021 Subjective Feels slightly better. Her biggest complaint is her leg pain. States she was taking half a bottle of aspirin 4 times daily for the past 1month due to the pain. Currently in room air. Denies any shortness of breath at rest. No fever, chills, cough, N/V/abd pain. Pain improved with oxycodone, on my later visit. Physical Exam Physical Exam: General: Lying comfortably in bed, not in distress, on room air HEENT: EOMI, AYANNA, MMM Chest: Clear breath sounds bilaterally, no wheezes or crackles CVS: irregular, normal heart sounds, +systolic murmur Abdomen: Soft, non tender, not distended, normal bowel sounds Neuro: Awake, alert, oriented, conversing well, non focal Extremities: some edema. Chronic skin changes bilateral LE. RLE covered with dressing. Results & Data Results & Data ([facility]) Vital Signs (Past 12 Hours) Vital Signs Temp Pulse Resp BP Pulse Ox O2 Del Method 12/05/21 07:58 81 16 98/65 L 99 Room Air 12/05/21 04:00 36.5 C 67 18 107/70 98 Room Air Laboratory Results Short CBC 12/04/21 12/05/21 Range/Units 11:25 07:09 WBC 6.65 5.29 (4.8-10.8) K/ul Hgb 8.9 L 8.5 L (12.0-16.0) g/dl Hct 28.0 L 26.2 L (34.1-44.9) % Plt Count 104 L 81 L (130-400) K/uL BMP 12/04/21 12/04/21 12/04/21 11:25 14:28 19:02 Sodium 138 Cancelled 137 Potassium 4.4 Cancelled 4.3 Chloride 112 H Cancelled 112 H Carbon Dioxide 14 L Cancelled 13 L BUN 50 H Cancelled 50 H Creatinine 0.95 Cancelled 0.97 Glucose 148 H Cancelled 150 H Calcium 9.0 Cancelled 8.8 12/05/21 07:09 Sodium 137 Potassium 4.1 Chloride 112 H Carbon Dioxide 17 L BUN 52 H Creatinine 1.05 Glucose 96 Calcium 8.3 L Liver Function 12/04/21 Range/Units 11:25 Total Bilirubin 0.9 (0.2-1.0) mg/dl AST 38 (13-39) U/L ALT 33 (7-52) U/L Alkaline Phosphatase 179 H (34-104) U/L Albumin 3.7 (3.4-5.0) gm/dl Urine 12/04/21 Range/Units 14:54 Urine Color Yellow Urine Appearance Clear (Clear) Urine pH 5.0 (4.5-7.5) Ur Specific [place] 1.018 (1.000-1.030) Urine Protein Trace H (Negative) Urine Glucose (UA) Negative (Negative) Medications Administered Current Inpatient Medications Acetaminophen (Acetaminophen 500 Mg Tab) 1,000 mg PO Q8H [facility] Stop: 01/03/22 22:29 Last Admin: 12/05/21 06:18 Dose: 1,000 mg Allopurinol (Allopurinol 300 Mg Tab) 300 mg PO HS [facility] Stop: 01/03/22 20:59 Last Admin: 12/04/21 21:14 Dose: 300 mg Atorvastatin Calcium (Atorvastatin 40 Mg Tab) 40 mg PO HS [facility] Stop: 01/03/22 20:59 Last Admin: 12/04/21 21:14 Dose: 40 mg Dextrose (Dextrose 50% 50 Ml Syringe) 25 - 50 ml IV UD PRN; Protocol PRN Reason: Hypoglycemia Protocol Stop: 01/03/22 15:27 Doxycycline Hyclate (Doxycycline Hyclate 100 Mg Cap) 100 mg PO BID@0700,1900 [facility]; Protocol Stop: 12/11/21 18:59 Last Admin: 12/05/21 06:18 Dose: 100 mg Glucagon (Glucagon For Inj 1 Mg Vial) 1 mg SQ UD PRN; Protocol PRN Reason: Hypoglycemia Protocol Stop: 01/03/22 15:27 Glucose (Glucose 40% Gel 15 Gm Tube) 15 - 30 gm PO UD PRN; Protocol PRN Reason: Hypoglycemia Protocol Stop: 01/03/22 15:27 Glucose (Glucose 10 Tab/Tube) 4 - 8 tab PO UD PRN; Protocol PRN Reason: Hypoglycemia Treatment Stop: 01/03/22 15:27 Sodium Bicarbonate 150 meq/ (Dextrose) 1,150 mls @ 60 mls/hr IV .[id number] [facility] Stop: 12/05/21 15:54 Last Admin: 12/04/21 21:14 Dose: 60 mls/hr Insulin Aspart (Insulin Aspart Per Unit) 0 units SC ACHS [facility] Stop: 01/03/22 16:29 Last Admin: 12/05/21 08:13 Dose: Not Given Insulin Glargine (Lantus Per Unit Charge) 12 units SQ BID [facility] Stop: 01/03/22 20:59 Last Admin: 12/05/21 08:16 Dose: 12 units Levothyroxine Sodium (Levothyroxine Sodium 75 Mcg Tablet) 75 mcg PO DAILYBB [facility] Stop: 01/04/22 06:29 Last Admin: 12/05/21 06:18 Dose: 75 mcg Magnesium Oxide (Magnesium Oxide 400 Mg Tab) 400 mg PO DAILY [facility] Stop: 01/04/22 08:59 Last Admin: 12/05/21 08:17 Dose: 400 mg Metoprolol Succinate (Metoprolol Succ 50mg Ext Rel Tab) 100 mg PO BID [facility] Stop: 01/03/22 20:59 Last Admin: 12/05/21 08:20 Dose: 100 mg Miscellaneous (Carbohydrates For Hypoglycemia ) 15 - 30 gm PO UD PRN PRN Reason: Hypoglycemia Protocol Stop: 01/03/22 15:27 Vitamin D (Cholecalciferol 1,000 Units 25 Mcg Tab) 1,000 units PO HS [facility] Stop: 01/03/22 20:59 Last Admin: 12/04/21 21:14 Dose: 1,000 units
[2021-12-05] MEDS: oxyCODONE HCL IR 5 MG TAB (IMMEDIATE RELEASE) PO PRN ×2 (13:37→18:13)
--- NOTE | 2021-12-05 17:17 | Consultation Report ---
NEPHROLOGY CONSULTATION NOTE DATE OF SERVICE: 12/05/2021. REASON FOR CONSULTATION: Metabolic acidosis. HISTORY OF PRESENT ILLNESS: The patient is a 81-year-old female who presented to the hospital yesterday from the Cardiology office where she was being seen for routine followup. She was having lots of symptoms, but it is hard to interpret as she is not able to give a clear history. She reports having painful legs, making it difficult to walk. At the Cardiology office, she was noted to be lethargic and falling asleep mid sentence, after which she was transferred via ambulance to the Emergency Department. She was felt to be in congestive heart failure and she did receive Lasix 40 mg IV today and 60 yesterday, but she is also getting bicarbonate drip currently. Her serum bicarbonate at the time of admission was 13. This morning it is up to 17. During her more recent hospitalization, she also had low bicarbonate, but by the time she was discharged it was completely normal. As an outpatient, she takes Lasix 60 mg daily as well as spironolactone. The patient is not able to give me a detailed account of her problem and she is quite confused. REVIEW OF SYSTEMS: Unable to obtain secondary to patient's confusion and mental status. PAST MEDICAL AND SURGICAL HISTORY: Includes type 2 diabetes mellitus, uncontrolled; paroxysmal atrial fibrillation, not anticoagulated due to history of frequent falls, history of subarachnoid hemorrhage in the past, history of sinus node dysfunction, status post pacemaker, chronic heart failure with preserved ejection fraction, peripheral neuropathy, hypothyroidism, hypertension, hyperlipidemia, chronic anemia with a baseline hemoglobin of 8-9, multiple recent hospitalizations, most recently in 07/2021. ALLERGIES: List was reviewed in detail and is as per the reconciliation list and the H and P, which was reviewed in detail. MEDICATIONS: Home medication as well as inpatient medication was reviewed in detail and is as per the H and P and medicine reconciliation. PAST SURGICAL HISTORY: Appendicectomy, cardiac pacemaker, cataract surgery, cholecystectomy, hysterectomy, IVC filter placement. FAMILY HISTORY: Negative for renal disease or dialysis. SOCIAL HISTORY: Never smoked. No alcohol. She is and lives with her spouse in her home. She uses walker for ambulation. PHYSICAL EXAMINATION: GENERAL: Elderly white female who is awake and alert, but seems confused and unable to answer any questions including basic one. She did not know why she was in the hospital and how she ended up in the hospital. HEENT: Mucous membrane is moist. NECK: Supple. Jugular venous distention is present. CHEST: Heart rhythm is irregularly irregular, 2+ murmur heard. ABDOMEN: Soft, nontender. LUNGS: Bilateral decreased breath sound, very poor inspiratory effort limiting quality exam. EXTREMITIES: Show trace to 1+ edema. VITAL SIGNS: Includes blood pressure 103/68, pulse rate 73, temperature 36.5, 93% on room air. LABORATORY TEST: Blood work from this morning shows sodium 137, potassium 4.1, chloride 112, bicarbonate 17, anion gap 8, BUN 52, creatinine 1.05, hemoglobin 8.5, WBC count 5.29, platelet count 81,000. Chest x-ray shows cardiomegaly with trace pleural effusion. No obvious congestive heart failure. ASSESSMENT AND PLAN: A 81-year-old female admitted yesterday with multitude of symptoms including lower extremity pain increasing confusion, lethargy. Blood work shows presence of metabolic acidosis, for which I have been consulted. Metabolic acidosis. She has elevated chloride, slightly low bicarbonate, but normal anion gap this morning; however, it was slightly elevated yesterday. With the use of Lasix as well as bicarbonate drip serum bicarbonate has gone up to 17. She had a blood gas done yesterday, which showed a normal pH of 7.37, but a low bicarb of 12. On review of her previous bicarbonate reading it appears when she presented to the hospital back in July, she had low bicarbonate, but by the time she was discharged it was normal. RECOMMENDATION: 1. At this point, I do not see the need of a bicarbonate drip. 2. I would like to follow the BMP and anion gap without any exogenous bicarbonate supplement. It is not clear whether the patient had some diarrhea as an outpatient as that would quite well explain the low bicarbonate and what appears to be normal anion gap metabolic acidosis. Also there is mention of aspirin overuse which can cause mixed met acidosis but level was normal. 3. Diuretics especially loop diuretic is usually associated with metabolic alkalosis. The current picture of metabolic acidosis and normal potassium does not fit with over diuresis as a cause of metabolic acidosis. Her blood sugar was not excessively high. Serum lactate was also normal. Kidney function is near normal, but disproportionately high BUN. 4. Given that she had normal serum bicarbonate in the recent past, it is very unlikely to be a case of renal tubular acidosis, which almost always are persistent. 5. I will continue to follow the patient. 6. Continue daily BMP. 7 Can have more diuretics--lasix. Thank you very much for the consult. Job ID: [id number] MAGDALENA
[2021-12-05] MEDS: CARBOHYDRATES FOR HYPOGLYCEMIA PO PRN ×2 (20:33→20:48)
[2021-12-05] MEDS: ATORVASTATIN 40 MG TAB PO SCH (21:02)
[2021-12-05] MEDS: CHOLECALCIFEROL 1,000 UNITS 25 MCG TAB PO SCH (21:02)
[2021-12-05] MEDS: allopurinoL 300 MG TAB PO SCH (21:04)
[2021-12-05] MEDS ORDERED: DEXTROSE 50% 50 ML SYRINGE IV STA (21:10)
[2021-12-05] MEDS: DEXTROSE 50% 50 ML SYRINGE IV PRN (21:12)
[2021-12-05] MEDS ORDERED: PROMETHAZINE HCL 12.5 MG in SODIUM CHLORIDE 0.9% 50 ML IV STA (21:25)
[2021-12-06] MEDS: ACETAMINOPHEN 500 MG TAB PO SCH ×3 (06:00→22:00)
--- NOTE | 2021-12-06 06:20 | Communication Note ---
Date of Service: December 06, 2021 Patient having hypoglycemia. Held lantus. Received amp of dextrose. Again sugars trending down. Started on d5ns@50ml/her. Will monitor. Thanks
[2021-12-06] MEDS ORDERED: DEXTROSE 50% 50 ML SYRINGE IV STA (06:21)
[2021-12-06] MEDS: DEXTROSE 50% 50 ML SYRINGE IV PRN (06:22)
[2021-12-06] MEDS: D5W AND NSS 1,000 ML IV SCH (06:27)
[2021-12-06] MEDS ORDERED: LEVOTHYROXINE SODIUM 75 MCG TABLET PO SCH (06:30)
[2021-12-06] MEDS: DOXYCYCLINE HYCLATE 100 MG CAP PO SCH ×2 (06:31→19:54)
[2021-12-06] MEDS: INSULIN ASPART PER UNIT SC SCH ×4 (07:46→19:53)
[2021-12-06 07:48] LABS: Hematocrit (blood only) 26.5 % (34.1-44.9); Hemoglobin 8.7 g/dl (12.0-16.0); Mean Corpuscular Hemoglobin 29.6 pg (25.0-34.0); Mean Corpuscular Hgb Conc 32.8 g/dL (32.0-36.0); Mean Corpuscular Volume 90.1 fL (80.0-100.0); Mean Platelet Volume 11.4 fL (9.4-12.3); Platelet Count 101 K/uL (130-400); RDW Coefficient of Variation 26.6 % (11.5-14.5); Red Blood Count 2.94 M/uL (3.93-5.22); White Blood Count 7.28 K/ul (4.8-10.8)
[2021-12-06 08:23] LABS: Creatinine Clr Calc Pharmacy 37.5 ml/min; Est GFR (African American) 66.9 ml/min; Est GFR (Non-African American) 57.7 ml/min; Magnesium 1.8 mg/dl (1.7-2.4); Phosphorus 3.1 mg/dl (2.5-4.9); Potassium 3.9 mmol/L (3.5-5.1)
[2021-12-06] MEDS: MAGNESIUM OXIDE 400 MG TAB PO SCH (08:48)
[2021-12-06] MEDS: METOPROLOL SUCC 50MG EXT REL TAB PO SCH ×2 (08:48→20:00)
--- NOTE | 2021-12-06 08:49 | Gastrointestinal Consultation ---
Date of Consultation December 06, 2021 Assessment & Plan (1) Dysphagia: (2) Abdominal pain: Pt is a 81 yo female admitted with metabolic acidosis, diastolic HF, seen for symptoms of dysphagia, poor PO intake. On exam, she is c/o diffuse abd pain, and hard passing stools. Though limited info can be obtained from her as she's drowsy. - Discussed with her indications of EGD evaluation for dysphagia. He is willing to give consent for this. Thus we'll proceed today, she's been NPO. - Will start PPI IV daily - Obtain KUB to eval stool burden - Further recs after EGD completed Supervising Physician Co-Signing Physician Notes I saw and evaluated the patient. We were consulted dysphagia. Due to a prior history of a stroke over 10 years ago the patient is somewhat of a poor historian. Physical examination elderly appearing female, no obvious distress somewhat frail-appearing Cardiac: Systolic ejection murmur heard Impression: patient with a question of chest pain and solid food dysphagia. Given the history I wonder if there may be a pill ingestion such as pill esophagitis or perhaps a distal esophageal ring. We will plan to do upper endoscopy today and perhaps dilation of the esophagus. I discussed the risks and benefits with the patient's who performed verbal consent this morning. The risks include bleeding infection perforation pain and need for follow-up studies. History of Present Illness Reason for Consultation: Dysphagia Requesting Physician: Dr. Charly Michele Attending Physician: Dr. Marcello Rodriguez History of Present Illness Pt is a 81 yo female, admitted w symptoms of lethargy and fatigue found to have metabolic acidosis, diastolic HF. She also had hx of Afib but not anticoagulated due to fall risk. We're asked to see pt for c/o dysphagia and poor PO intake. Pt is lethargic and not able to provide much information. Chart reviewed and I have also called pt's ([facility]). Pt c/o having nausea and abd pain, constipation, painful swallowing at times but cannot tell me if it's with solids vs liquids. She's also noted to steadily drop her BSG though on D5W. Current in 100s. Per , pt eats solids at home but not having symptoms of coughing or chocking on foods. No complaints of painful swallowing. Though he noticed that she's eating less in the last few days and also seems to be losing weight. EGD in 2006 Allergies Allergy/AdvReac Type Severity Reaction Status Date / Time citalopram Allergy Unknown Unknown Verified 08/08/21 20:42 paroxetine Allergy Unknown Unknown Verified 08/08/21 20:42 Sulfa (Sulfonamide Allergy Unknown TOLERATES Verified 08/08/21 20:42 Antibiotics) LASIX venom-wasp protein Allergy Unknown HIVES Verified 08/08/21 20:42 celecoxib AdvReac Mild N/V Verified 08/08/21 20:42 Home Medications Medication Instructions Recorded Confirmed Type atorvastatin 40 mg tablet 40 mg PO DAILY 12/13/20 12/04/21 History levothyroxine 75 mcg tablet 75 mcg PO DAILY 12/13/20 12/04/21 History losartan 50 mg tablet 50 mg PO DAILY 12/13/20 12/04/21 History magnesium oxide 400 mg PO DAILY 12/13/20 12/04/21 History spironolactone 25 mg tablet 25 mg PO DAILY 12/13/20 12/04/21 History allopurinol 300 mg tablet 300 mg PO DAILY 03/05/21 12/04/21 History cholecalciferol (vitamin D3) 25 25 mcg PO DAILY 03/05/21 12/04/21 History mcg (1,000 unit) tablet digoxin 125 mcg (0.125 mg) tablet 125 mcg PO DAILY@199903/05/21 12/04/21 History epinephrine 0.3 mg/0.3 mL 0.3 mg IM Q4H PRN Allergic Reaction 03/05/21 12/04/21 History injection, auto-injector insulin lispro 100 unit/mL 1 unit (0.01 mL) subcut UD #0 mL 06/16/21 12/04/21 Rx subcutaneous pen (Humalog KwikPen (U-100) Insulin) insulin glargine 100 unit/mL (3 25 unit subcut QAM 06/30/21 12/04/21 History mL) subcutaneous pen (Lantus Solostar U-100 Insulin) metoprolol succinate 100 mg 100 mg PO BID #60 tabs 08/08/21 12/04/21 Rx tablet,extended release 24 hr furosemide 40 mg tablet 60 mg PO DAILY 12/04/21 12/04/21 History gabapentin 300 mg capsule 300 mg PO HS 12/04/21 12/04/21 History Patient History Medical History Acute alteration in mental status Afib CASH (acute kidney injury) Cerebral hemorrhage "2010 left hemiparesis" Chest pain Chronic anemia Chronic combined systolic and diastolic CHF (congestive heart failure) Dehydration Diabetes mellitus, type II Elevated troponin Facial lesion Frequent falls hx of subarachnoid hemorrhage 2009, large retroperitoneal bleed 2014 walker dependent Gout Hematoma of rectus sheath 2015 Hemiplegia History of - cerebrovascular accident HLD (hyperlipidemia) HTN (hypertension) Hypothyroidism Pacemaker Presence of IVC filter Tachy-jodi syndrome Surgical History Status post appendectomy Status post cardiac pacemaker procedure Status post cataract extraction Status post cholecystectomy Status post hysterectomy Status post insertion of inferior vena caval filter Family History Daughter Breast cancer Mother Cancer pancreatic Father Heart disease Social History Smoking Status: Never smoker Second Hand Exposure: No; Hx Alcohol Use: No Hx Substance Use: No Preferred Language: Estonian Communication Ability: Effective Youth Officer Required: No Beliefs That Will Affect Care: None marital status: Current Living Situation: Spouse Current Living Situation Comment: patient lives at home with , who is her primary caregiver Other Information That Helps Us Care for You: No Feels Safe at Home: Yes Safety Concerns: Feels Safe At This Time Assistive Devices: Cane and Walker Review of Systems Review of Systems: All systems reviewed & are unremarkable except as noted in HPI & below Physical Exam Constitutional: WD/WN, vitals as above well groomed, cooperative and comfortable Eyes: PERRL, conjunctivae normal, anicteric sclerae ENMT: external ear and nose normal, oropharynx normal Respiratory: normal respiratory effort, lungs clear to auscultation Cardiovascular: RRR, no murmur, no edema Gastrointestinal (Abdomen): normal bowel sounds, soft, nontender, no hepatosplenomegaly Skin: no rashes, warm and dry no jaundice Psychiatric: A+Ox3, euthymic affect Lymphatic: no lymphedema Results & Data ([facility]) Vital Signs (Past 12 Hours) Vital Signs Temp Pulse Pulse Resp BP BP Pulse Ox 12/06/21 07:00 105 H 12/06/21 07:11 36.4 C L 100 H 19 93/61 L 97 12/06/21 03:21 36.6 C 91 H 18 136/78 96 12/06/21 01:34 94 H 12/05/21 23:39 36.4 C L 101 H 18 105/69 97 O2 Del Method 12/06/21 07:00 12/06/21 07:11 Room Air 12/06/21 03:21 Room Air 12/06/21 01:34 12/05/21 23:39 Room Air
[2021-12-06] MEDS ORDERED: PHARMACY GLYCEMIC MGMT CONSULT PRN (08:56)
[2021-12-06] MEDS ORDERED: ONDANSETRON INJ 2 MG/ML 2 ML VIAL IV PRN (08:56)
[2021-12-06] MEDS ORDERED: PROMETHAZINE HCL 12.5 MG in SODIUM CHLORIDE 0.9% 50 ML IV ONE (09:15)
--- NOTE | 2021-12-06 09:28 | Nephrology Progress Note ---
Date of Service December 06, 2021 Assessment & Plan Admission and Anticipated Discharge Date Admission Date: December 04, 2021 Subjective S--c/o pain in legs. Poor PO. PHYSICAL EXAMINATION: GENERAL: Elderly white female who is awake and alert, but seems confused and unable to answer any questions including basic one. She did not know why she was in the hospital and how she ended up in the hospital. HEENT: Mucous membrane is moist. NECK: Supple. Jugular venous distention is present. CHEST: Heart rhythm is irregularly irregular, 2+ murmur heard. ABDOMEN: Soft, nontender. LUNGS: Bilateral decreased breath sound, very poor inspiratory effort limiting quality exam. EXTREMITIES: Show trace to 1+ edema. VITAL SIGNS: Includes blood pressure 103/68, pulse rate 73, temperature 36.5, 93% on room air. LABORATORY TEST: Anion gap normal. bicarb 19 ASSESSMENT AND PLAN: A 81-year-old female admitted yesterday with multitude of symptoms including lower extremity pain increasing confusion, lethargy. Blood work shows presence of metabolic acidosis, for which I have been consulted. Metabolic acidosis. She has elevated chloride, slightly low bicarbonate, but normal anion gap this morning; however, it was slightly elevated yesterday. With the use of Lasix as well as bicarbonate drip serum bicarbonate has gone up to 17. She had a blood gas done yesterday, which showed a normal pH of 7.37, but a low bicarb of 12. On review of her previous bicarbonate reading it appears when she presented to the hospital back in July, she had low bicarbonate, but by the time she was discharged it was normal. RECOMMENDATION: 1. It is not clear whether the patient had some diarrhea as an outpatient as that would quite well explain the low bicarbonate and what appears to be normal anion gap metabolic acidosis. Also there is mention of aspirin overuse which can cause mixed met acidosis but level was normal. 3. Diuretics especially loop diuretic is usually associated with metabolic alkalosis. The current picture of metabolic acidosis and normal potassium does not fit with over diuresis as a cause of metabolic acidosis. Her blood sugar was not excessively high. Serum lactate was also normal. Kidney function is near normal, but disproportionately high BUN. 4. Given that she had normal serum bicarbonate in the recent past, it is very unlikely to be a case of renal tubular acidosis, which almost always are persistent. 5. Continue daily BMP. 7 Can have more diuretics--lasix home dose. will sign off . Call if any issues. Results & Data ([facility]) Vital Signs (Past 12 Hours) Vital Signs Temp Pulse Pulse Resp BP BP Pulse Ox 12/06/21 08:48 82 104/68 12/06/21 07:00 105 H 12/06/21 07:11 36.4 C L 100 H 19 93/61 L 97 12/06/21 03:21 36.6 C 91 H 18 136/78 96 12/06/21 01:34 94 H 12/05/21 23:39 36.4 C L 101 H 18 105/69 97 O2 Del Method 12/06/21 08:48 12/06/21 07:00 12/06/21 07:11 Room Air 12/06/21 03:21 Room Air 12/06/21 01:34 12/05/21 23:39 Room Air
--- NOTE | 2021-12-06 10:14 | Anesthesiology Consultation ---
Date of Service December 06, 2021 Assessment & Plan Chart Review Chart Review: Acceptable Risk for Surgery and Patient NOT seen in Pre Admission Testing Consults Requested none ASA ASA4 Proposed Anesthesia Anesthesia Type: MAC History Surgery Operation Date: 12/06/21 16:00 Proposed Procedures p Esophagogastroduodenoscopy Dr Michael Rodriguez, DO Height/Weight Height: 5 ft 2 in Weight: 48.9 kg Allergies Allergy/AdvReac Type Severity Reaction Status Date / Time citalopram Allergy Unknown Unknown Verified 08/08/21 20:42 paroxetine Allergy Unknown Unknown Verified 08/08/21 20:42 Sulfa (Sulfonamide Allergy Unknown TOLERATES Verified 08/08/21 20:42 Antibiotics) LASIX venom-wasp protein Allergy Unknown HIVES Verified 08/08/21 20:42 celecoxib AdvReac Mild N/V Verified 08/08/21 20:42 Medications Home Medications Medication Instructions Recorded Confirmed Last Taken atorvastatin 40 mg tablet 40 mg PO DAILY 12/13/20 12/04/21 12/03/21 levothyroxine 75 mcg tablet 75 mcg PO DAILY 12/13/20 12/04/21 12/03/21 losartan 50 mg tablet 50 mg PO DAILY 12/13/20 12/04/21 12/03/21 magnesium oxide 400 mg PO DAILY 12/13/20 12/04/21 12/03/21 spironolactone 25 mg tablet 25 mg PO DAILY 12/13/20 12/04/21 12/03/21 allopurinol 300 mg tablet 300 mg PO DAILY 03/05/21 12/04/21 12/03/21 cholecalciferol (vitamin D3) 25 25 mcg PO DAILY 03/05/21 12/04/21 12/03/21 mcg (1,000 unit) tablet digoxin 125 mcg (0.125 mg) tablet 125 mcg PO DAILY@199903/05/21 12/04/21 12/03/21 epinephrine 0.3 mg/0.3 mL 0.3 mg IM Q4H PRN Allergic Reaction 03/05/21 12/04/21 Unknown injection, auto-injector insulin lispro 100 unit/mL 1 unit (0.01 mL) subcut UD #0 mL 06/16/21 12/04/21 12/03/21 subcutaneous pen (Humalog KwikPen (U-100) Insulin) insulin glargine 100 unit/mL (3 25 unit subcut QAM 06/30/21 12/04/21 12/03/21 mL) subcutaneous pen (Lantus Solostar U-100 Insulin) metoprolol succinate 100 mg 100 mg PO BID #60 tabs 08/08/21 12/04/21 12/03/21 tablet,extended release 24 hr furosemide 40 mg tablet 60 mg PO DAILY 12/04/21 12/04/21 12/03/21 gabapentin 300 mg capsule 300 mg PO HS 12/04/21 12/04/21 12/03/21 Active Medications Generic Name Dose Route Start Last Admin Trade Name Freq PRN Reason Stop Dose Admin Acetaminophen 1,000 mg 12/04/21 22:30 12/06/21 06:00 Acetaminophen 500 Mg Tab PO 01/03/22 22:29 Not Given Q8H ANGELINE Allopurinol 300 mg 12/04/21 21:00 12/05/21 21:04 Allopurinol 300 Mg Tab PO 01/03/22 20:59 300 mg HS ANGELINE Administration Atorvastatin Calcium 40 mg 12/04/21 21:00 12/05/21 21:02 Atorvastatin 40 Mg Tab PO 01/03/22 20:59 40 mg HS ANGELINE Administration Dextrose 25 - 50 ml 12/04/21 15:28 12/06/21 06:22 Dextrose 50% 50 Ml Syringe IV 01/03/22 15:27 50 ml UD PRN Administration Hypoglycemia Protocol Protocol Doxycycline Hyclate 100 mg 12/04/21 19:00 12/06/21 06:31 Doxycycline Hyclate 100 Mg Cap PO 12/11/21 18:59 100 mg BID@0700,1900 ANGELINE Administration Protocol Dextrose/Sodium Chloride 1,000 mls @ 50 mls/hr 12/06/21 06:30 12/06/21 06:27 D5w And Nss IV 01/05/22 06:29 50 mls/hr .Q20H ANGELINE Administration Insulin Aspart 0 units 12/04/21 16:30 12/06/21 07:46 Insulin Aspart Per Unit SC 01/03/22 16:29 Not Given ACHS ANGELINE Magnesium Oxide 400 mg 12/05/21 09:00 12/06/21 08:48 Magnesium Oxide 400 Mg Tab PO 01/04/22 08:59 400 mg DAILY ANGELINE Administration Metoprolol Succinate 100 mg 12/04/21 21:00 12/06/21 08:48 Metoprolol Succ 50mg Ext Rel Tab PO 01/03/22 20:59 100 mg BID ANGELINE Administration Miscellaneous 15 - 30 gm 12/04/21 15:28 12/05/21 20:48 Carbohydrates For Hypoglycemia PO 01/03/22 15:27 15 gm UD PRN Administration Hypoglycemia Protocol Oxycodone HCl 5 mg 12/05/21 13:20 12/05/21 18:13 Oxycodone Hcl Ir 5 Mg Tab (Immediate Release) PO 12/19/21 13:19 5 mg Q4H PRN Administration Pain Vitamin D 1,000 units 12/04/21 21:00 12/05/21 21:02 Cholecalciferol 1,000 Units 25 Mcg Tab PO 01/03/22 20:59 1,000 units HS ANGELINE Administration Past Medical History Medical History Acute alteration in mental status Afib CASH (acute kidney injury) Cerebral hemorrhage "2010 left hemiparesis" Chest pain Chronic anemia Chronic combined systolic and diastolic CHF (congestive heart failure) Dehydration Diabetes mellitus, type II Elevated troponin Facial lesion Frequent falls hx of subarachnoid hemorrhage 2009, large retroperitoneal bleed 2014 walker dependent Gout Hematoma of rectus sheath 2015 Hemiplegia History of - cerebrovascular accident HLD (hyperlipidemia) HTN (hypertension) Hypothyroidism Pacemaker Presence of IVC filter Tachy-jodi syndrome Exercise / Class Metabolic Activity IV < 2 Limit ADL/Bedbound Past Family History Family History Daughter Breast cancer Mother Cancer pancreatic Father Heart disease Past Surgical History Surgical History Status post appendectomy Status post cardiac pacemaker procedure Status post cataract extraction Status post cholecystectomy Status post hysterectomy Status post insertion of inferior vena caval filter Past Anesthesia History No Hx of Anesthesia Complications and No Family Hx of Anesthesia Complications History of PONV No Hx of PONV and No Hx of Motion Sickness Social History Smoking Status: Never smoker Hx Alcohol Use: No Hx Substance Use: No substance use type: does not use Physical Exam Vital Signs Last Vital Signs Temp 36.4 C L 12/06/21 07:11 Pulse 82 12/06/21 08:48 Resp 19 12/06/21 07:11 BP 104/68 12/06/21 08:48 Pulse Ox 97 12/06/21 07:11 O2 Del Method 12/06/21 07:11 Testing Laboratory Results 12/06/21 06:55 12/06/21 06:55 PT 17.4 Seconds (9.0-12.0) H 12/05/21 07:09 INR 1.7 (0.9-1.1) H 12/05/21 07:09 Hemoglobin A1c 7.8 % (4.5-5.6) H 12/05/21 07:09 Urine Color Yellow 12/04/21 14:54 Urine Appearance Clear (Clear) 12/04/21 14:54 Urine pH 5.0 (4.5-7.5) 12/04/21 14:54 Ur Specific [place] 1.018 (1.000-1.030) 12/04/21 14:54 Urine Protein Trace (Negative) H 12/04/21 14:54 Urine Glucose (UA) Negative (Negative) 12/04/21 14:54 Urine Ketones Negative (Negative) 12/04/21 14:54 Urine Nitrite Negative (Negative) 12/04/21 14:54 Ur Leukocyte Esterase Trace (Negative) H 12/04/21 14:54 Urine WBC (Auto) 1-5 /hpf (0-5) 12/04/21 14:54 Urine RBC (Auto) 5-10 /hpf (0-4) H 12/04/21 14:54 U Hyaline Cast (Auto) 1-5 /lpf (0-5) 12/04/21 14:54 U Epithel Cells (Auto) 20-30 /lpf (0-5) H 12/04/21 14:54 Urine Bacteria (Auto) Negative (Negative) 12/04/21 14:54 12/04/21 17:13 Aerobic Blood Culture - Preliminary Blood No growth in Aerobic bottle after 24 hours. Anaerobic Blood Culture - Preliminary No growth in Anaerobic bottle after 24 hours. 12/04/21 17:09 Aerobic Blood Culture - Preliminary Blood No growth in Aerobic bottle after 24 hours. Anaerobic Blood Culture - Preliminary No growth in Anaerobic bottle after 24 hours. 12/06/21 12/06/21 12/06/21 09:43 08:44 07:10 POC Glucose 92 105 H 142 H 12/06/21 12/06/2122 06:38 06:15 06:10 POC Glucose 158 H 45 L* 39 L* 12/06/21 12/05/21 00:47 22:28 POC Glucose 86 113 H Electrocardiogram Date: 12/05/21 Findings: + AFIB @ (@ 88 w/ PVC's;pacer;LBBB) and + LBBB Chest X-Ray Date: 12/04/21 Findings: + cardiomegaly, + atherosclerosis of thoracic aorta and + other (pacemaker) Echocardiogram Date: 12/05/21 EF: 40% LV Function: dysfunctional RWMA: + hypokinetic (global HK) Other Findings: + atrial enlargement (severe RA/LA dilation) and + LVH (moderate) Valvular Disease: + MR (severe) and + pertinent finding (TR-severe)
--- NOTE | 2021-12-06 10:16 | Pharmacy Report ---
Pharmacy Glycemic Short Note 2 - Date of Service December 06, 2021 - Glycemic Short BSG Results (Last 24 hours): 12/05/21 12/05/21 12/05/21 11:06 16:04 16:05 Glucose POC Glucose 126 H 68 L* 70 12/05/21 12/05/21 12/05/21 20:29 20:32 20:48 Glucose POC Glucose 45 L* 45 L* 49 L* 12/05/21 12/05/21 12/05/21 20:50 21:05 21:07 Glucose POC Glucose 54 L* 60 L* 52 L* 12/05/21 12/05/21 12/06/21 21:27 22:28 00:47 Glucose POC Glucose 155 H 113 H 86 12/06/21 12/06/21 12/06/21 06:10 06:15 06:38 Glucose POC Glucose 39 L* 45 L* 158 H 12/06/21 12/06/21 12/06/21 06:55 07:10 08:44 Glucose 108 H POC Glucose 142 H 105 H 12/06/21 09:43 Glucose POC Glucose 92 OUTPATIENT ANTIDIABETIC REGIMEN: * Lantus 25 units SQ AM * Humalog 6 units with breakfast, 5 units with supper ASSESSMENT: * 81 year old female admitted for metabolic acidosis, having poor PO intake, hypoglycemia d/t excess insulin and decreased intake. * Patient had 12 units of Lantus yesterday morning, held last night, and D5NS started, pharmacy consulted today. * Continue to hold basal and only have CF at this time. PLAN FOR INPATIENT GLYCEMIC CONTROL: * Basal insulin * Hold * Bolus insulin * NovoLog per scale ACHS or Q6hrs while NPO * Goal Range: Low 120 mg/dL - High 180 mg/dL - higher range for pt w/ persistent hypoglycemia * Correction Factor: 35 mg/dL/unit * Nutritional / Prandial insulin per carb ratio of 1 unit per -- grams CHO consumed
[2021-12-06] MEDS ORDERED: PANTOprazole 40 MG in SYRINGE 0 ML IV SCH (11:00)
[2021-12-06] MEDS ORDERED: PROPOFOL IV EMULSION 10 MG/ML 20 ML VIAL IV ONE (11:12)
[2021-12-06] MEDS ORDERED: PHENYLEPHRINE 100MCG/ML 5ML SYR ONE (11:12)
[2021-12-06] MEDS ORDERED: LIDOCAINE 2% MPF LOCAL 5 ML VIAL INFIL ONE (11:12)
--- NOTE | 2021-12-06 11:14 | Communication Note ---
Date of Service: December 06, 2021 And upper endoscopy this morning for evaluation of her chest pain. She was found to have severe esophagitis and perhaps esophageal candidiasis. Additional findings included a 5 cm hiatal hernia in addition to atrophic gastritis Biopsies were obtained from the stomach, esophagus and brushings performed for evaluation of candidiasis Recommendations Begin a daily proton pump inhibitor (Protonix 40 mg per day) Empiric therapy for esophageal candidiasis with Diflucan or nystatin Better pill hygiene for the patient with having her be upright after all meals and tablets Repeat upper endoscopy in 3 months Call with any additional questions or concerns
--- NOTE | 2021-12-06 11:25 | GI REPORT ---
Patient Name: Roxana Linton Procedure Date: 12/06/2021 10:31 AM Date of : 1940 Admit Type: Inpatient Age: 81 Gender: Female Attending MD: Marcello Rodriguez DO Procedure: Upper GI endoscopy Providers: Marcello Rodriguez DO, Libby Wu DO Referring MD: Charly Michele Md Indications: Dysphagia Patient Profile: This is a 81 year old female. Refer to note in patient chart for documentation of history and physical. Medicines: Monitored Anesthesia Care Complications: No immediate complications. Estimated Blood Loss: Estimated blood loss was minimal. Procedure: Pre-Anesthesia Assessment: - Prior to the procedure, a History and Physical was performed, and patient medications and allergies were reviewed. The risks and benefits of the procedure and the sedation options and risks were discussed with the patient. All questions were answered and informed consent was obtained. Patient identification and proposed procedure were verified by the physician, the nurse and the head librarian in the procedure room. Mental Status Examination: alert but confused. Airway Examination: Mallampati Class II (the uvula but not tonsillar pillars visualized). Respiratory Examination: clear to auscultation. CV Examination: RRR, no murmurs, no S3 or S4. Prophylactic Antibiotics: The patient does not require prophylactic antibiotics. Prior Anticoagulants: The patient has taken no previous anticoagulant or antiplatelet agents except for aspirin. ASA Grade Assessment: IV - A patient with severe systemic disease that is a constant threat to life. After reviewing the risks and benefits, the patient was deemed in satisfactory condition to undergo the procedure. The anesthesia plan was to use monitored anesthesia care (MAC). Immediately prior to administration of medications, the patient was re-assessed for adequacy to receive sedatives. The physical status of the patient was re-assessed after the procedure. After obtaining informed consent, the endoscope was passed under direct vision. Throughout the procedure, the patient's blood pressure, pulse, and oxygen saturations were monitored continuously. The Endoscope was introduced through the mouth, and advanced to the second part of duodenum. The upper GI endoscopy was accomplished without difficulty. The patient tolerated the procedure well. Findings: The Z-line was regular and was found 33 cm from the incisors. LA Grade D (one or more mucosal breaks involving at least 75% of esophageal circumference) esophagitis was found. Biopsies were taken with a cold forceps for histology. Verification of patient identification for the specimen was done by the physician and nurse using the patient's name and date. Diffuse, white plaques were found in the entire esophagus. Cells for cytology were obtained by brushing. A 5 cm hiatal hernia was present. Diffuse severe inflammation characterized by erythema, friability and granularity was found in the entire examined stomach. Biopsies were taken with a cold forceps for histology for H. pylori. Diffuse atrophic mucosa was found in the entire examined stomach. Biopsies were taken with a cold forceps for histology for gastric mapping. A large diverticulum was found in the second portion of the duodenum. The exam of the duodenum was otherwise normal. Impression: - Z-line regular, 33 cm from the incisors. - LA Grade D reflux esophagitis. Biopsied. - Esophageal plaques were found, suspicious for candidiasis. Cells for cytology obtained. - 5 cm hiatal hernia. - Gastritis. Biopsied for H. pylori. - Gastric mucosal atrophy. Biopsied. - Duodenal diverticulum. Recommendation: - [facility]. - Soft diet and advance as tolerated. - Use a proton pump inhibitor 40 mg PO BID for 12 weeks. - Await pathology results. - Repeat upper endoscopy in 3 months to check healing. - Would empirically start fluconazole given concern for esophageal candidiasis. 200 mg loading dose on day 1 followed by 100 mg daily for 13 days. Can stop antifungal sooner if cytology is negative for jv. - Would ensure patient is sitting upright while recieving medications and pills and does not lay flat for at least 30 minutes after. Marcello Rodriguez D.O. Marcello Rodriguez DO 12/06/2021 11:24:23 AM This report has been signed electronically. Libby Wu DO Note Initiated On: 12/06/2021 10:31 AM Number of Addenda: 0 I attest to the content of the Intraoperative Record and orders documented therein, exceptions below {[id number]}
--- NOTE | 2021-12-06 11:36 | Anesthesiology Progress Note ---
Date of Service December 06, 2021 Anesthesia Post Procedure Vital Signs Vital Signs: Temp Pulse Pulse Resp BP BP Pulse Ox 12/06/21 11:30 83 16 95/66 L 98 12/06/21 11:18 77 16 87/50 L 98 12/06/21 10:37 36.6 C 102 H 18 112/81 96 12/06/21 08:48 82 104/68 12/06/21 07:00 105 H 12/06/21 07:11 36.4 C L 100 H 19 93/61 L 97 12/06/21 03:21 36.6 C 91 H 18 136/78 96 12/06/21 01:34 94 H 12/05/21 23:39 36.4 C L 101 H 18 105/69 97 12/05/21 20:14 35.5 C L 90 16 99/65 L 100 12/05/21 16:46 37 C 101 H 20 108/67 94 O2 Del Method 12/06/21 11:30 Room Air 12/06/21 11:18 Room Air 12/06/21 10:37 Room Air 12/06/21 08:48 12/06/21 07:00 12/06/21 07:11 Room Air 12/06/21 03:21 Room Air 12/06/21 01:34 12/05/21 23:39 Room Air 12/05/21 20:14 Room Air 12/05/21 16:46 Room Air Pain Intensity Right Lower Leg: Pain Intensity: 6 Bilateral Leg: Pain Intensity: 6 Transfer of Care Handoff Completed per policy Notes Mental Status: alert / awake / arousable Patient Amnestic to Procedure: Yes Nausea / Vomiting: adequately controlled Pain: adequately controlled Airway Patency, RR, SpO2: stable & adequate BP & HR: stable & adequate Hydration State: stable & adequate Anesthetic Complications: no major complications apparent
[2021-12-06] MEDS ORDERED: FLUCONAZOLE 100 MG TAB PO ONE (12:13)
[2021-12-06] MEDS: oxyCODONE HCL IR 5 MG TAB (IMMEDIATE RELEASE) PO PRN (12:42)
--- NOTE | 2021-12-06 12:46 | XRay Report ---
RIGHT TIBIA AND FIBULA 2 VIEWS CLINICAL HISTORY: Wound pain. FINDINGS: AP and lateral views of the right tibia and fibula are compared to study dated 03/07/2021. The skeletal structures are heterogeneously osteopenic. There is no radiographic evidence of right ti bial or fibular fracture. No bony erosion or periostitis is identified. Degenerative change is noted in the right knee and ankle joints. An intramedullary nail is partially visualized in the distal femu r. A plantar calcaneal enthesophyte is observed. There is generalized atrophy of the regional soft ti ssues. There is advanced atherosclerotic calcification of the regional arteries. IMPRESSION: No acute bony abnormality is identified. Electronically signed by: Isauro Mercado M.D. 12/06/2021 12:45 PM
--- NOTE | 2021-12-06 13:48 | Orthopedic Consultation ---
Date of Service December 06, 2021 Assessment & Plan (1) Wound of right lower extremity: -No acute surgical intervention. Low suspicion of deep infection. -Agree with Wound Care consult. She is established patient at Wound Care clinic d/t history of multiple LE wounds. -New cultures pending. Agree w/ empiric doxycyline w/ MRSA hx. -WBAT RLE. -Rest of care per primary team Dispo: Per primary team. Will need chronic wound care as outpatient. No specific Ortho follow up needed but available with questions. Discussed w/ Dr. Guevara. History of Present Illness Reason for Consultation: Chronic RLE wound . Requesting Physician: Charly Michele MD . Attending Physician: Charly Michele MD Pt is a 81 y/o/f long-term resident with extensive PMHx including uncontrolled DM II, diastolic HF, A-fib, venous stasis ulcers, CKD and several other chronic issues who was admitted on 12/04 with decompensated heart failure after failure to respond to outpatient diuresis by her Cardiology team. She has been clinically improving since admission. She has also been dealing with a chronic RLE wound that has been painful. She is endorsing general RLE pain. She had a culture of the wound at the end of October that grew MRSA. She has been started on PO doxycycline since admitted. Tib/fib XRs were obtained and negative for any findings to explain her symptoms. Orthopedics consulted for chronic RLE wound. Seen at bedside, endorses general RLE pain which is worse around her wound. She is somnolent and minimally conversant. Allergies Allergy/AdvReac Type Severity Reaction Status Date / Time citalopram Allergy Unknown Unknown Verified 08/08/21 20:42 paroxetine Allergy Unknown Unknown Verified 08/08/21 20:42 Sulfa (Sulfonamide Allergy Unknown TOLERATES Verified 08/08/21 20:42 Antibiotics) LASIX venom-wasp protein Allergy Unknown HIVES Verified 08/08/21 20:42 celecoxib AdvReac Mild N/V Verified 08/08/21 20:42 Home Medications Medication Instructions Recorded Confirmed Type atorvastatin 40 mg tablet 40 mg PO DAILY 12/13/20 12/04/21 History levothyroxine 75 mcg tablet 75 mcg PO DAILY 12/13/20 12/04/21 History losartan 50 mg tablet 50 mg PO DAILY 12/13/20 12/04/21 History magnesium oxide 400 mg PO DAILY 12/13/20 12/04/21 History spironolactone 25 mg tablet 25 mg PO DAILY 12/13/20 12/04/21 History allopurinol 300 mg tablet 300 mg PO DAILY 03/05/21 12/04/21 History cholecalciferol (vitamin D3) 25 25 mcg PO DAILY 03/05/21 12/04/21 History mcg (1,000 unit) tablet digoxin 125 mcg (0.125 mg) tablet 125 mcg PO DAILY@199903/05/21 12/04/21 History epinephrine 0.3 mg/0.3 mL 0.3 mg IM Q4H PRN Allergic Reaction 03/05/21 12/04/21 History injection, auto-injector insulin lispro 100 unit/mL 1 unit (0.01 mL) subcut UD #0 mL 06/16/21 12/04/21 Rx subcutaneous pen (Humalog KwikPen (U-100) Insulin) insulin glargine 100 unit/mL (3 25 unit subcut QAM 06/30/21 12/04/21 History mL) subcutaneous pen (Lantus Solostar U-100 Insulin) metoprolol succinate 100 mg 100 mg PO BID #60 tabs 08/08/21 12/04/21 Rx tablet,extended release 24 hr furosemide 40 mg tablet 60 mg PO DAILY 12/04/21 12/04/21 History gabapentin 300 mg capsule 300 mg PO HS 12/04/21 12/04/21 History Past Med/Surg History Medical History Acute alteration in mental status Afib CASH (acute kidney injury) Cerebral hemorrhage "2009 left hemiparesis" Chest pain Chronic anemia Chronic combined systolic and diastolic CHF (congestive heart failure) Dehydration Diabetes mellitus, type II Elevated troponin Facial lesion Frequent falls hx of subarachnoid hemorrhage 2009, large retroperitoneal bleed 2014 walker dependent Gout Hematoma of rectus sheath 2015 Hemiplegia History of - cerebrovascular accident HLD (hyperlipidemia) HTN (hypertension) Hypothyroidism Pacemaker Presence of IVC filter Tachy-jodi syndrome Surgical History Status post appendectomy Status post cardiac pacemaker procedure Status post cataract extraction Status post cholecystectomy Status post hysterectomy Status post insertion of inferior vena caval filter Family History Daughter Breast cancer Mother Cancer pancreatic Father Heart disease Social History Smoking Status: Never smoker Second Hand Exposure: No; Hx Alcohol Use: No Hx Substance Use: No Preferred Language: Vietnamese Communication Ability: Effective Data Entry Representative Required: No Beliefs That Will Affect Care: None marital status: Current Living Situation: Spouse Current Living Situation Comment: patient lives at home with , who is her primary caregiver Other Information That Helps Us Care for You: No Feels Safe at Home: Yes Safety Concerns: Feels Safe At This Time Assistive Devices: Cane and Walker Review of Systems All systems reviewed & are unremarkable except as noted in HPI & below. Physical Exam General: Chronically ill appearing elderly female resting in bed. Somnolent but interacting appropriately RLE: There is an approximately 6 cm x 3 cm wound just lateral to mid shaft anterior tibia. It extends to superficial dermis. Wound edges are clean without significant erythema. No drainage from wound, no pockets of pus surrounding the wound. Some superfucial non-viable tissue without overt necrosis. She can flex and extend a the ankle. Distally NVI. Results & Data Results & Data Laboratory Results Reviewed . Diagnostic Findings Reviewed . PG Care Time/CCT Total # of Minutes Spent Total Time Spent with Patient: Total time spent is greater than 50% in coordination of care (as documented) at patient's floor/unit and/or counseling patient: Coding Level of Care Code 82590 Inpt Consult Level 3 Diagnoses Wound of right lower extremity S81.801A
--- NOTE | 2021-12-06 14:19 | XRay Report ---
KUB HISTORY: Generalized abd pain ; eval stool burden COMPARISON: Abdomen and pelvis CT 07/27/2021. FINDINGS: The bowel gas pattern is unremarkable. There are no dilated loops of small bowel to suggest an obstruction. No renal calculi. No ureteral calculi. No pneumoperitoneum or pneumatosis. Moderate well-formed stool seen within the colon. Vascular calcifications are noted. Postoperative changes wi thin the lower lumbar spine and an IVC filter are again noted. The heart is enlarged. Bilateral nephr olithiasis, unchanged. Stable calcifications in the deep pelvis consistent with phleboliths. Internal fixation of an old, healed left femoral fracture. IMPRESSION: 1. Moderate well-formed stool within the colon. 2. No evidence for bowel obstruction. 3. Additional findings as described above. ACT 112: Negative or not required by law. Electronically signed by: Godwin Ansari M.D. 12/06/2021 2:18 PM
--- NOTE | 2021-12-06 14:23 | Hospitalist Progress Note ---
Date of Service December 06, 2021 Assessment & Plan (1) Metabolic acidosis: (2) Diastolic heart failure: (3) Elevated troponin: (4) Afib: (5) Generalized weakness: (6) Ambulatory dysfunction: (7) Type II diabetes mellitus, uncontrolled: (8) Hypothyroidism: (9) Noncompliance: (10) Dysphagia: Plan RLE wound/pain- suspected venous ulcer. Unable to explain her severe pain. Will get Xray tibia/fibula, ESR, CRP. Send wound clx. Consult ortho and WOCN. Continue rocephin/doxy in the meantime pending clx results. Oxy for pain Dysphagia due to severe esophagitis and possibly candidiasis - s/p EGD today 12/06. Per GI, found to have grade D refulx esophagitis and esophageal plaques suspicious for esophageal candidiasis. Additional findings included a 5 cm hiatal hernia in addition to atrophic gastritis - Biopsies were obtained from the stomach, esophagus and brushings performed for evaluation of candidiasis Recommendations from GI - PPI bid for 12 weeks - follow pathology results - Empiric therapy for esophageal candidiasis with Diflucan for 14 days. stop sooner if cytology negative. Monitor QTc on diflucan and avoid other QT prolonging agents. - Better pill hygiene for the patient with having her be upright after all meals and tablets - Repeat upper endoscopy in 3 months Metabolic acidosis- improving. s/p bicarb drip. nephro signed off Chronic diastolic CHF- doesn't look overtly hypervolemic. Will resume home lasix as indicated Chronic A fib- not on anticoag d/t h/o freq falls and h/o SAH per chart review - digoxin discontinued and toprol continued per cardio DM-2 with hypoglycemia - hypoglycemia today due to mismatch of insulin and poor oral intake. requiring d5 infusion. - stop lantus. continue SSI. consult glycemic pharmacist Hypothyroidism - TSH high, T4 low. - dose of synthroid increased from 75 to 87.5 daily, follow up as OP with repeat TFT in 4-6 weeks Thrombocytopenia - stable, monitor, no bleed Chronic anemia- Hb stable, possibly anemia of chronic disease. Monitor. Generalized weakness/ambulatory dysfunction - PT OT eval DVT ppx- sc heparin Dispo- pending further work up and management of her leg wound/pain and dysphagia. Admission and Anticipated Discharge Date Admission Date: December 04, 2021 Subjective Continues to complain of intermittent pain in her RLE. Denies other issues. No fever, chills, N/V/CP/SOB. Physical Exam Physical Exam: General: Lying comfortably in bed, not in distress, on room air Chest:Fair breath sounds bilaterally, no wheezes or crackles CVS: Irregular, normal heart sounds Abdomen: Soft, non tender, not distended, normal bowel sounds Neuro: Awake, alert, conversing ok, non focal Extremities: RLE ulcer with discharge noted. B/L LE venous stasis changes with some edema. Results & Data Results & Data ([facility]) Vital Signs (Past 12 Hours) Vital Signs Temp Pulse Pulse Resp BP BP Pulse Ox 12/06/21 12:36 95 H 22 106/72 95 12/06/21 11:45 97 H 16 106/73 99 12/06/21 11:30 83 16 95/66 L 98 12/06/21 11:18 77 16 87/50 L 98 12/06/21 10:37 36.6 C 102 H 18 112/81 96 12/06/21 08:48 82 104/68 12/06/21 07:00 105 H 12/06/21 07:11 36.4 C L 100 H 19 93/61 L 97 12/06/21 03:21 36.6 C 91 H 18 136/78 96 O2 Del Method 12/06/21 12:36 Room Air 12/06/21 11:45 Room Air 12/06/21 11:30 Room Air 12/06/21 11:18 Room Air 12/06/21 10:37 Room Air 12/06/21 08:48 12/06/21 07:00 12/06/21 07:11 Room Air 12/06/21 03:21 Room Air Laboratory Results Short CBC 12/06/21 Range/Units 06:55 WBC 7.28 (4.8-10.8) K/ul Hgb 8.7 L (12.0-16.0) g/dl Hct 26.5 L (34.1-44.9) % Plt Count 101 L (130-400) K/uL BMP 12/06/21 06:55 Sodium 138 Potassium 3.9 Chloride 112 H Carbon Dioxide 19 L BUN 47 H Creatinine 0.94 Glucose 108 H Calcium 8.0 L Diagnostic Findings Tibia/Fibula X-Ray 12/06/21 09:01 RIGHT TIBIA AND FIBULA 2 VIEWS CLINICAL HISTORY: Wound pain. FINDINGS: AP and lateral views of the right tibia and fibula are compared to study dated 03/07/2021. The skeletal structures are heterogeneously osteopenic. There is no radiographic evidence of right tibial or fibular fracture. No bony erosion or periostitis is identified. Degenerative change is noted in the right knee and ankle joints. An intramedullary nail is partially visualized in the distal femur. A plantar calcaneal enthesophyte is observed. There is generalized atrophy of the regional soft tissues. There is advanced atherosclerotic calcification of the regional arteries. IMPRESSION: No acute bony abnormality is identified. Electronically signed by: Isauro Mercado M.D. 12/06/2021 12:45 PM KUB X-Ray 12/06/21 10:02 KUB HISTORY: Generalized abd pain ; eval stool burden COMPARISON: Abdomen and pelvis CT 07/27/2021. FINDINGS: The bowel gas pattern is unremarkable. There are no dilated loops of small bowel to suggest an obstruction. No renal calculi. No ureteral calculi. No pneumoperitoneum or pneumatosis. Moderate well-formed stool seen within the colon. Vascular calcifications are noted. Postoperative changes within the lower lumbar spine and an IVC filter are again noted. The heart is enlarged. Bilateral nephrolithiasis, unchanged. Stable calcifications in the deep pelvis consistent with phleboliths. Internal fixation of an old, healed left femoral fracture. IMPRESSION: 1. Moderate well-formed stool within the colon. 2. No evidence for bowel obstruction. 3. Additional findings as described above. ACT 112: Negative or not required by law. Electronically signed by: Godwin Ansari M.D. 12/06/2021 2:18 PM Medications Administered Current Inpatient Medications Acetaminophen (Acetaminophen 500 Mg Tab) 1,000 mg PO Q8H ANGELINE Stop: 01/03/22 22:29 Last Admin: 12/06/21 13:55 Dose: 1,000 mg Allopurinol (Allopurinol 300 Mg Tab) 300 mg PO HS ANGELINE Stop: 01/03/22 20:59 Last Admin: 12/05/21 21:04 Dose: 300 mg Atorvastatin Calcium (Atorvastatin 40 Mg Tab) 40 mg PO HS ANGELINE Stop: 01/03/22 20:59 Last Admin: 12/05/21 21:02 Dose: 40 mg Dextrose (Dextrose 50% 50 Ml Syringe) 25 - 50 ml IV UD PRN; Protocol PRN Reason: Hypoglycemia Protocol Stop: 01/03/22 15:27 Last Admin: 12/06/21 06:22 Dose: 50 ml Doxycycline Hyclate (Doxycycline Hyclate 100 Mg Cap) 100 mg PO BID@0700,1900 [facility]; Protocol Stop: 12/11/21 18:59 Last Admin: 12/06/21 06:31 Dose: 100 mg Fluconazole (Fluconazole 100 Mg Tab) 100 mg PO QAM ANGELINE Stop: 12/17/21 08:59 Glucagon (Glucagon For Inj 1 Mg Vial) 1 mg SQ UD PRN; Protocol PRN Reason: Hypoglycemia Protocol Stop: 01/03/22 15:27 Glucose (Glucose 40% Gel 15 Gm Tube) 15 - 30 gm PO UD PRN; Protocol PRN Reason: Hypoglycemia Protocol Stop: 01/03/22 15:27 Glucose (Glucose 10 Tab/Tube) 4 - 8 tab PO UD PRN; Protocol PRN Reason: Hypoglycemia Treatment Stop: 01/03/22 15:27 Dextrose/Sodium Chloride (D5w And Nss) 1,000 mls @ 50 mls/hr IV .Q20H [facility] Stop: 01/05/22 06:29 Last Infusion: 12/06/21 13:40 Dose: 0 mls/hr Ceftriaxone Sodium 2,000 mg/ (Dextrose) 70 mls @ 100 mls/hr IV DAILY [facility]; Protocol Stop: 12/13/21 09:29 Insulin Aspart (Insulin Aspart Per Unit) 0 units SC ACHS [facility] Stop: 01/03/22 16:29 Last Admin: 12/06/21 12:48 Dose: Not Given Levothyroxine Sodium (Levothyroxine Sodium 50 Mcg Tablet) 87.5 mcg PO DAILYBB [facility] Stop: 01/06/22 06:29 Magnesium Oxide (Magnesium Oxide 400 Mg Tab) 400 mg PO DAILY [facility] Stop: 01/04/22 08:59 Last Admin: 12/06/21 08:48 Dose: 400 mg Metoprolol Succinate (Metoprolol Succ 50mg Ext Rel Tab) 100 mg PO BID [facility] Stop: 01/03/22 20:59 Last Admin: 12/06/21 08:48 Dose: 100 mg Miscellaneous (Carbohydrates For Hypoglycemia ) 15 - 30 gm PO UD PRN PRN Reason: Hypoglycemia Protocol Stop: 01/03/22 15:27 Last Admin: 12/05/21 20:48 Dose: 15 gm Miscellaneous Information (Pharmacy Glycemic Mgmt Consult) 1 each N/A UD PRN PRN Reason: Consult Stop: 01/05/22 08:55 Oxycodone HCl (Oxycodone Hcl Ir 5 Mg Tab (Immediate Release)) 5 mg PO Q4H PRN PRN Reason: Pain Stop: 12/19/21 13:19 Last Admin: 12/06/21 12:42 Dose: 5 mg Pantoprazole Sodium (Pantoprazole 40 Mg Tab) 40 mg PO BID ANGELINE Stop: 01/05/22 20:59 Vitamin D (Cholecalciferol 1,000 Units 25 Mcg Tab) 1,000 units PO HS ANGELINE Stop: 01/03/22 20:59 Last Admin: 12/05/21 21:02 Dose: 1,000 units
[2021-12-06] MEDS: cefTRIAXone SODIUM 2,000 MG in DEXTROSE 5% 50 ML IV SCH (14:25)
[2021-12-06] MEDS: ATORVASTATIN 40 MG TAB PO SCH (20:00)
[2021-12-06] MEDS: allopurinoL 300 MG TAB PO SCH (20:00)
[2021-12-06] MEDS: PANTOprazole 40 MG TAB PO SCH (20:00)
[2021-12-06] MEDS: CHOLECALCIFEROL 1,000 UNITS 25 MCG TAB PO SCH (20:00)
[2021-12-07] MEDS: D5W AND NSS 1,000 ML IV SCH (05:09)
[2021-12-07] MEDS: DOXYCYCLINE HYCLATE 100 MG CAP PO SCH ×2 (06:15→18:16)
[2021-12-07] MEDS: ACETAMINOPHEN 500 MG TAB PO SCH ×3 (06:16→21:09)
[2021-12-07] MEDS ORDERED: LEVOTHYROXINE SODIUM 50 MCG TABLET PO SCH (06:30)
[2021-12-07 07:47] LABS: Hematocrit (blood only) 29.2 % (34.1-44.9); Hemoglobin 9.3 g/dl (12.0-16.0); Mean Corpuscular Hemoglobin 29.9 pg (25.0-34.0); Mean Corpuscular Hgb Conc 31.8 g/dL (32.0-36.0); Mean Corpuscular Volume 93.9 fL (80.0-100.0); Platelet Count 103 K/uL (130-400); RDW Coefficient of Variation 27.5 % (11.5-14.5); Red Blood Count 3.11 M/uL (3.93-5.22); White Blood Count 6.79 K/ul (4.8-10.8)
[2021-12-07] MEDS: cefTRIAXone SODIUM 2,000 MG in DEXTROSE 5% 50 ML IV SCH (08:02)
[2021-12-07] MEDS: METOPROLOL SUCC 50MG EXT REL TAB PO SCH ×2 (08:03→20:15)
[2021-12-07] MEDS: FLUCONAZOLE 100 MG TAB PO SCH (08:03)
[2021-12-07] MEDS: MAGNESIUM OXIDE 400 MG TAB PO SCH (08:03)
[2021-12-07] MEDS: PANTOprazole 40 MG TAB PO SCH ×2 (08:04→20:16)
[2021-12-07] MEDS: POLYETHYLENE (MIRALAX) 17 GM PACK PO SCH (08:04)
[2021-12-07 08:18] LABS: BUN Creatinine Ratio 44.8 (10-20); Calcium 8.3 mg/dl (8.5-10.1); Creatinine Clr Calc Pharmacy 36.4 ml/min; Est GFR (African American) 65.2 ml/min; Est GFR (Non-African American) 56.2 ml/min; Potassium 4.2 mmol/L (3.5-5.1)
[2021-12-07] MEDS: INSULIN ASPART PER UNIT SC SCH ×4 (09:22→20:14)
[2021-12-07] MEDS: CEFEPIME 2,000 MG in SYRINGE 0 ML IV SCH ×2 (10:46→21:09)
--- NOTE | 2021-12-07 12:24 | Pharmacy Report ---
Pharmacy Glycemic Short Note 2 - Date of Service December 07, 2021 - Glycemic Short BSG Results (Last 24 hours): 12/06/21 12/06/21 12/06/21 10:36 11:35 12:40 Glucose POC Glucose 91 94 90 12/06/21 12/06/21 12/07/21 16:18 19:51 04:15 Glucose POC Glucose 94 99 162 H 12/07/21 12/07/21 12/07/21 06:50 07:04 11:17 Glucose 159 H POC Glucose 188 H 209 H OUTPATIENT ANTIDIABETIC REGIMEN: * Lantus 25 units SQ AM * Humalog 6 units with breakfast, 5 units with supper ASSESSMENT: 12/07/21 * Blood sugars at goal yesterday without any insulin, today increasing to 188mg/dl, 209mg/dl, only receiving CF. * Stop IV D5 and begin CR with dinner, continue to hold basal for now and higher goal range to prevent hypoglycemia. 12/06/21 * 81 year old female admitted for metabolic acidosis, having poor PO intake, hypoglycemia d/t excess insulin and decreased intake. * Patient had 12 units of Lantus yesterday morning, held last night, and D5NS started, pharmacy consulted today. * Continue to hold basal and only have CF at this time. PLAN FOR INPATIENT GLYCEMIC CONTROL: * Basal insulin * Hold * Bolus insulin * NovoLog per scale ACHS or Q6hrs while NPO * Goal Range: Low 120 mg/dL - High 160 mg/dL - higher range for pt w/ persistent hypoglycemia * Correction Factor: 30 mg/dL/unit * Nutritional / Prandial insulin per carb ratio of 1 unit per 12 grams CHO consumed
--- NOTE | 2021-12-07 13:44 | Hospitalist Progress Note ---
Date of Service December 07, 2021 Assessment & Plan (1) Wound of right lower extremity: (2) Dysphagia: (3) Metabolic acidosis: (4) Diastolic heart failure: (5) Elevated troponin: (6) Afib: (7) Generalized weakness: (8) Ambulatory dysfunction: (9) Type II diabetes mellitus, uncontrolled: (10) Hypothyroidism: (11) Noncompliance: Plan RLE wound/pain- suspected venous ulcer. - Wound clx shows possible pseudomonas- Ceftriaxone changed to cefepime today 12/07 D1. - Xray tibia/fibula with no acute abnormality. - ESR, CRP, WBC normal.ortho and WOCN. - Ortho did not recommend acute intervention - WOCN following Dysphagia due to severe esophagitis and possibly candidiasis - s/p EGD today 12/06. Per GI, found to have grade D refulx esophagitis and esophageal plaques suspicious for esophageal candidiasis. Additional findings included a 5 cm hiatal hernia in addition to atrophic gastritis - Biopsies were obtained from the stomach, esophagus and brushings performed for evaluation of candidiasis Recommendations from GI - PPI bid for 12 weeks - follow pathology results - Empiric therapy for esophageal candidiasis with Diflucan for 14 days. stop sooner if cytology negative. Monitor QTc on diflucan and avoid other QT prolonging agents. - Better pill hygiene for the patient with having her be upright after all meals and tablets - Repeat upper endoscopy in 3 months Metabolic acidosis- stable. s/p bicarb drip. nephro signed off Chronic diastolic CHF- doesn't look overtly hypervolemic. Will resume home lasix as indicated Chronic A fib- not on anticoag d/t h/o freq falls and h/o SAH per chart review - digoxin discontinued and toprol continued per cardio DM-2 with hypoglycemia - hypoglycemia resolved. hypoglycemia in setting of mismatch of insulin and poor oral intake and required d5 infusion. - Glycemic pharmacist managing her insulin. Hypothyroidism - TSH high, T4 low. - dose of synthroid increased from 75 to 88 mcg daily, follow up as OP with repeat TFT in 4-6 weeks Thrombocytopenia - stable, monitor, no bleed Chronic anemia- Hb stable, possibly anemia of chronic disease. Monitor. Generalized weakness/ambulatory dysfunction - PT OT eval DVT ppx- sc heparin Dispo- pending final wound clx results, GI patho results. Needs PT eval and likely placement Admission and Anticipated Discharge Date Admission Date: December 04, 2021 Subjective States she feels okay. Has some pain in right leg 5/10. Eating okay- states she vomits when she eats. No fever, chills, CP, SOB. Physical Exam Physical Exam: General: Lying comfortably in bed, not in distress, on room air Chest:Fair breath sounds bilaterally, no wheezes or crackles CVS: Irregular, normal heart sounds Abdomen: Soft, non tender, not distended, normal bowel sounds Neuro: Awake, alert, conversing ok, non focal Extremities: RLE ulcer with discharge noted. B/L LE venous stasis changes with some edema. Results & Data Results & Data ([facility]) Vital Signs (Past 12 Hours) Vital Signs Temp Pulse Pulse Resp BP Pulse Ox O2 Del Method 12/07/21 12:31 36.4 C L 56 L 16 94/59 L 96 Room Air 12/07/21 07:05 36.5 C 90 16 102/64 97 Room Air 12/07/21 04:17 85 12/07/21 03:15 36.0 C L 63 16 95/57 L 96 Room Air Laboratory Results Short CBC 12/07/21 Range/Units 06:50 WBC 6.79 (4.8-10.8) K/ul Hgb 9.3 L (12.0-16.0) g/dl Hct 29.2 L (34.1-44.9) % Plt Count 103 L (130-400) K/uL BMP 12/07/21 06:50 Sodium 138 Potassium 4.2 Chloride 111 H Carbon Dioxide 18 L BUN 43 H Creatinine 0.96 Glucose 159 H Calcium 8.3 L Medications Administered Current Inpatient Medications Acetaminophen (Acetaminophen 500 Mg Tab) 1,000 mg PO Q8H ANGELINE Stop: 01/03/22 22:29 Last Admin: 12/07/21 06:16 Dose: 1,000 mg Allopurinol (Allopurinol 300 Mg Tab) 300 mg PO HS ANGELINE Stop: 01/03/22 20:59 Last Admin: 12/06/21 20:00 Dose: 300 mg Atorvastatin Calcium (Atorvastatin 40 Mg Tab) 40 mg PO HS ANGELINE Stop: 01/03/22 20:59 Last Admin: 12/06/21 20:00 Dose: 40 mg Dextrose (Dextrose 50% 50 Ml Syringe) 25 - 50 ml IV UD PRN; Protocol PRN Reason: Hypoglycemia Protocol Stop: 01/03/22 15:27 Last Admin: 12/06/21 06:22 Dose: 50 ml Doxycycline Hyclate (Doxycycline Hyclate 100 Mg Cap) 100 mg PO BID@0700,1900 [facility]; Protocol Stop: 12/11/21 18:59 Last Admin: 12/07/21 06:15 Dose: 100 mg Fluconazole (Fluconazole 100 Mg Tab) 100 mg PO QAM ANGELINE Stop: 12/17/21 08:59 Last Admin: 12/07/21 08:03 Dose: 100 mg Glucagon (Glucagon For Inj 1 Mg Vial) 1 mg SQ UD PRN; Protocol PRN Reason: Hypoglycemia Protocol Stop: 01/03/22 15:27 Glucose (Glucose 40% Gel 15 Gm Tube) 15 - 30 gm PO UD PRN; Protocol PRN Reason: Hypoglycemia Protocol Stop: 01/03/22 15:27 Glucose (Glucose 10 Tab/Tube) 4 - 8 tab PO UD PRN; Protocol PRN Reason: Hypoglycemia Treatment Stop: 01/03/22 15:27 Cefepime HCl 2,000 mg/ Syringe 20 mls @ 5 mls/min IV Q12H [facility]; Protocol Stop: 12/14/21 09:59 Last Admin: 12/07/21 10:46 Dose: 5 mls/min Insulin Aspart (Insulin Aspart Per Unit) 0 units SC ACHS [facility] Stop: 01/03/22 16:29 Last Admin: 12/07/21 12:18 Dose: 2 units Levothyroxine Sodium (Levothyroxine Sodium 88 Mcg Tablet) 88 mcg PO DAILYBB [facility] Stop: 01/07/22 06:29 Magnesium Oxide (Magnesium Oxide 400 Mg Tab) 400 mg PO DAILY [facility] Stop: 01/04/22 08:59 Last Admin: 12/07/21 08:03 Dose: 400 mg Metoprolol Succinate (Metoprolol Succ 50mg Ext Rel Tab) 100 mg PO BID [facility] Stop: 01/03/22 20:59 Last Admin: 12/07/21 08:03 Dose: 100 mg Miscellaneous (Carbohydrates For Hypoglycemia ) 15 - 30 gm PO UD PRN PRN Reason: Hypoglycemia Protocol Stop: 01/03/22 15:27 Last Admin: 12/05/21 20:48 Dose: 15 gm Miscellaneous Information (Pharmacy Glycemic Mgmt Consult) 1 each N/A UD PRN PRN Reason: Consult Stop: 01/05/22 08:55 Oxycodone HCl (Oxycodone Hcl Ir 5 Mg Tab (Immediate Release)) 5 mg PO Q4H PRN PRN Reason: Pain Stop: 12/19/21 13:19 Last Admin: 12/06/21 12:42 Dose: 5 mg Pantoprazole Sodium (Pantoprazole 40 Mg Tab) 40 mg PO BID [facility]INE Stop: 01/05/22 20:59 Last Admin: 12/07/21 08:04 Dose: 40 mg Polyethylene Glycol (Polyethylene (Miralax) 17 Gm Pack) 17 gm PO DAILY [facility] Stop: 01/06/22 08:59 Last Admin: 12/07/21 08:04 Dose: 17 gm Vitamin D (Cholecalciferol 1,000 Units 25 Mcg Tab) 1,000 units PO HS ANGELINE Stop: 01/03/22 20:59 Last Admin: 12/06/21 20:00 Dose: 1,000 units
--- NOTE | 2021-12-07 14:40 | Cardiology Progress Note ---
Date of Service December 07, 2021 Assessment & Plan (1) Metabolic acidosis: (2) Generalized weakness: (3) Encephalopathy: (4) Atrial fibrillation with RVR: Plan Patient is a complex 81-year-old female with medical issues as outlined who presents with generalized weakness malaise and encephalopathy poor p.o. intake with marked metabolic derangement by laboratory testing. No overt signs of left heart failure by chest x-ray and exam but with lower extremity edema Evaluation has demonstrated extensive esophagitis possible candidal. No acute cardiac decline and overall heart rate is improving now able to take medications Would not restart digoxin Admission and Anticipated Discharge Date Admission Date: December 04, 2021 Subjective Patient was seen and examined. Telemetry reviewed. Patient appears somewhat brighter today. He is doing better with foods and pills but still nausea at times. No chest pains or tachypalpitations Review of Systems Review of Systems: All systems reviewed & are unremarkable except as noted in Subjective Physical Exam Constitutional: + frail appearing; no acute distress Eyes: PERRL, conjunctivae normal, anicteric sclerae ENMT: external ear and nose normal, oropharynx normal Respiratory: normal respiratory effort, lungs clear to auscultation Cardiovascular: Rate/Rhythm: + irregularly irregular Heart Sounds: + murmur (Grade 2 or 6 systolic murmur no diastolic murmur.) Palpation: + abnormal PMI (Displaced laterally) Extremities: normal capillary refill Gastrointestinal (Abdomen): normal bowel sounds, soft, nontender, no hepatosplenomegaly Results & Data ([facility]) Vital Signs (Past 12 Hours) Vital Signs Temp Pulse Pulse Resp BP Pulse Ox O2 Del Method 12/07/21 12:31 36.4 C L 56 L 16 94/59 L 96 Room Air 12/07/21 07:05 36.5 C 90 16 102/64 97 Room Air 12/07/21 04:17 85 12/07/21 03:15 36.0 C L 63 16 95/57 L 96 Room Air Laboratory Results Laboratory Results - last 24 hr 12/06/21 12/06/21 12/06/21 10:36 11:35 16:18 WBC RBC Hgb Hct MCV MCH MCHC RDW Std Deviation RDW Coeff of [place] Plt Count MPV ESR Sodium Potassium Chloride Carbon Dioxide Anion Gap BUN Creatinine Est Cr Clr Drug Dosing Est GFR ( Amer) Est GFR (Non-Af Amer) BUN/Creatinine Ratio Glucose POC Glucose 91 94 94 Calcium 12/06/21 12/07/21 12/07/21 19:51 04:15 06:50 WBC 6.79 RBC 3.11 L Hgb 9.3 L Hct 29.2 L MCV 93.9 MCH 29.9 MCHC 31.8 L RDW Std Deviation 94.0 H RDW Coeff of [place] 27.5 H Plt Count 103 L MPV 11.0 ESR Sodium Potassium Chloride Carbon Dioxide Anion Gap BUN Creatinine Est Cr Clr Drug Dosing Est GFR ( Amer) Est GFR (Non-Af Amer) BUN/Creatinine Ratio Glucose POC Glucose 99 162 H Calcium 12/07/21 12/07/21 12/07/21 06:50 06:50 07:04 WBC RBC Hgb Hct MCV MCH MCHC RDW Std Deviation RDW Coeff of [place] Plt Count MPV ESR 30 Sodium 138 Potassium 4.2 Chloride 111 H Carbon Dioxide 18 L Anion Gap 9 BUN 43 H Creatinine 0.96 Est Cr Clr Drug Dosing 36.4 Est GFR ( Amer) 65.2 Est GFR (Non-Af Amer) 56.2 BUN/Creatinine Ratio 44.8 H Glucose 159 H POC Glucose 188 H Calcium 8.3 L 12/07/21 11:17 WBC RBC Hgb Hct MCV MCH MCHC RDW Std Deviation RDW Coeff of [place] Plt Count MPV ESR Sodium Potassium Chloride Carbon Dioxide Anion Gap BUN Creatinine Est Cr Clr Drug Dosing Est GFR ( Amer) Est GFR (Non-Af Amer) BUN/Creatinine Ratio Glucose POC Glucose 209 H Calcium
[2021-12-07 16:21] LABS: Babesia microti DNA Not Detected (Not Detected)
[2021-12-07] MEDS: ATORVASTATIN 40 MG TAB PO SCH (20:15)
[2021-12-07] MEDS: CHOLECALCIFEROL 1,000 UNITS 25 MCG TAB PO SCH (20:15)
[2021-12-07] MEDS: allopurinoL 300 MG TAB PO SCH (20:15)
[2021-12-08] MEDS: DOXYCYCLINE HYCLATE 100 MG CAP PO SCH ×2 (05:57→18:13)
[2021-12-08] MEDS: ACETAMINOPHEN 500 MG TAB PO SCH ×3 (05:57→20:52)
[2021-12-08] MEDS: LEVOTHYROXINE SODIUM 88 MCG TABLET PO SCH (05:58)
[2021-12-08 07:04] LABS: Hematocrit (blood only) 26.7 % (34.1-44.9); Hemoglobin 8.4 g/dl (12.0-16.0); Mean Corpuscular Hemoglobin 29.6 pg (25.0-34.0); Mean Corpuscular Hgb Conc 31.5 g/dL (32.0-36.0); Platelet Count 89 K/uL (130-400); RDW Coefficient of Variation 27.2 % (11.5-14.5); RDW Standard Deviation 94.2 fL (36.4-46.3); Red Blood Count 2.84 M/uL (3.93-5.22); White Blood Count 6.11 K/ul (4.8-10.8)
[2021-12-08 07:39] LABS: BUN Creatinine Ratio 46.2 (10-20); Calcium 8.2 mg/dl (8.5-10.1); Est GFR (African American) 57.8 ml/min; Est GFR (Non-African American) 49.9 ml/min; Potassium 4.4 mmol/L (3.5-5.1)
[2021-12-08] MEDS: INSULIN ASPART PER UNIT SC SCH ×4 (09:06→21:06)
[2021-12-08] MEDS: CEFEPIME 2,000 MG in SYRINGE 0 ML IV SCH ×2 (09:08→20:53)
[2021-12-08] MEDS: POLYETHYLENE (MIRALAX) 17 GM PACK PO SCH (09:09)
[2021-12-08] MEDS: PANTOprazole 40 MG TAB PO SCH ×2 (09:09→20:52)
[2021-12-08] MEDS: MAGNESIUM OXIDE 400 MG TAB PO SCH (09:09)
[2021-12-08] MEDS: METOPROLOL SUCC 50MG EXT REL TAB PO SCH ×2 (09:09→20:51)
[2021-12-08] MEDS: FLUCONAZOLE 100 MG TAB PO SCH (09:09)
--- NOTE | 2021-12-08 12:04 | Hospitalist Progress Note ---
Date of Service December 08, 2021 Assessment & Plan (1) Wound of right lower extremity: (2) Dysphagia: (3) Metabolic acidosis: (4) Diastolic heart failure: (5) Elevated troponin: (6) Afib: (7) Generalized weakness: (8) Ambulatory dysfunction: (9) Type II diabetes mellitus, uncontrolled: (10) Hypothyroidism: (11) Noncompliance: Plan RLE wound/pain- suspected venous ulcer. - Wound clx shows pseudomonas, now growing Staph aureus too- Ceftriaxone changed to cefepime today 12/07 D2. - Xray tibia/fibula with no acute abnormality. - ESR, CRP, WBC normal.ortho and WOCN. - Ortho did not recommend acute intervention - WOCN following Dysphagia due to severe esophagitis and possibly candidiasis - s/p EGD today 12/06. Per GI, found to have grade D refulx esophagitis and esophageal plaques suspicious for esophageal candidiasis. Additional findings included a 5 cm hiatal hernia in addition to atrophic gastritis - Biopsies were obtained from the stomach, esophagus and brushings performed for evaluation of candidiasis Recommendations from GI - PPI bid for 12 weeks - Pathology shows ulcerative esophagitis but negative for H pylor, fungus, viral inclusions or foreign body particles - Stop diflucan as patho and clx negative for fungus. - Better pill hygiene for the patient with having her be upright after all meals and tablets - Repeat upper endoscopy in 3 months Metabolic acidosis- stable. s/p bicarb drip. nephro signed off Chronic diastolic CHF- doesn't look overtly hypervolemic. Will resume home lasix as indicated Chronic A fib- not on anticoag d/t h/o freq falls and h/o SAH per chart review - digoxin discontinued and toprol continued per cardio DM-2 with hypoglycemia - hypoglycemia resolved. hypoglycemia in setting of mismatch of insulin and poor oral intake and required d5 infusion. - Glycemic pharmacist managing her insulin. Hypothyroidism - TSH high, T4 low. - dose of synthroid increased from 75 to 88 mcg daily, follow up as OP with repeat TFT in 4-6 weeks Thrombocytopenia - stable, monitor, no bleed Chronic anemia- Hb stable, possibly anemia of chronic disease. Monitor. Generalized weakness/ambulatory dysfunction - PT OT eval DVT ppx- sc heparin Dispo- Pending final clx results. Needs PT eval and likely placement. Will need IV ABx for leg wound as prolonged QTc precludes oral ABx options. Admission and Anticipated Discharge Date Admission Date: December 04, 2021 Subjective She feels better. States she is now able to eat better, appetite is slightly improved. Denies N/V. Pain is improved. No fever or chills. Physical Exam Physical Exam: General: Lying comfortably in bed, not in distress, on room air Chest:Fair breath sounds bilaterally, no wheezes or crackles CVS: Irregular, normal heart sounds Abdomen: Soft, non tender, not distended, normal bowel sounds Neuro: Awake, alert, conversing ok, non focal Extremities: RLE ulcer with discharge noted. B/L LE venous stasis changes with some edema. Results & Data Results & Data ([facility]) Vital Signs (Past 12 Hours) Vital Signs Temp Pulse Pulse Resp BP BP Pulse Ox 12/08/21 07:30 12/08/21 11:02 36.3 C L 65 18 115/77 98 12/08/21 07:06 36.7 C 85 18 97/62 L 96 12/08/21 03:49 81 12/08/21 02:51 36.5 C 75 18 118/66 98 O2 Del Method 12/08/21 07:30 Room Air 12/08/21 11:02 Room Air 12/08/21 07:06 Room Air 12/08/21 03:49 12/08/21 02:51 Room Air Laboratory Results Short CBC 12/08/21 Range/Units 06:40 WBC 6.11 (4.8-10.8) K/ul Hgb 8.4 L (12.0-16.0) g/dl Hct 26.7 L (34.1-44.9) % Plt Count 89 L (130-400) K/uL BMP 12/08/21 06:40 Sodium 136 Potassium 4.4 Chloride 110 H Carbon Dioxide 17 L BUN 49 H Creatinine 1.06 Glucose 140 H Calcium 8.2 L Medications Administered Current Inpatient Medications Acetaminophen (Acetaminophen 500 Mg Tab) 1,000 mg PO Q8H [facility] Stop: 01/03/22 22:29 Last Admin: 12/08/21 05:57 Dose: 1,000 mg Allopurinol (Allopurinol 300 Mg Tab) 300 mg PO HS [facility] Stop: 01/03/22 20:59 Last Admin: 12/07/21 20:15 Dose: 300 mg Atorvastatin Calcium (Atorvastatin 40 Mg Tab) 40 mg PO HS [facility] Stop: 01/03/22 20:59 Last Admin: 12/07/21 20:15 Dose: 40 mg Dextrose (Dextrose 50% 50 Ml Syringe) 25 - 50 ml IV UD PRN; Protocol PRN Reason: Hypoglycemia Protocol Stop: 01/03/22 15:27 Last Admin: 12/06/21 06:22 Dose: 50 ml Doxycycline Hyclate (Doxycycline Hyclate 100 Mg Cap) 100 mg PO BID@0700,1900 [facility]; Protocol Stop: 12/11/21 18:59 Last Admin: 12/08/21 05:57 Dose: 100 mg Fluconazole (Fluconazole 100 Mg Tab) 100 mg PO QAM [facility] Stop: 12/17/21 08:59 Last Admin: 12/08/21 09:09 Dose: 100 mg Glucagon (Glucagon For Inj 1 Mg Vial) 1 mg SQ UD PRN; Protocol PRN Reason: Hypoglycemia Protocol Stop: 01/03/22 15:27 Glucose (Glucose 40% Gel 15 Gm Tube) 15 - 30 gm PO UD PRN; Protocol PRN Reason: Hypoglycemia Protocol Stop: 01/03/22 15:27 Glucose (Glucose 10 Tab/Tube) 4 - 8 tab PO UD PRN; Protocol PRN Reason: Hypoglycemia Treatment Stop: 01/03/22 15:27 Cefepime HCl 2,000 mg/ Syringe 20 mls @ 5 mls/min IV Q12H [facility]; Protocol Stop: 12/14/21 09:59 Last Admin: 12/08/21 09:08 Dose: 5 mls/min Insulin Aspart (Insulin Aspart Per Unit) 0 units SC ACHS [facility] Stop: 01/03/22 16:29 Last Admin: 12/08/21 12:04 Dose: 1 units Levothyroxine Sodium (Levothyroxine Sodium 88 Mcg Tablet) 88 mcg PO DAILYBB [facility] Stop: 01/07/22 06:29 Last Admin: 12/08/21 05:58 Dose: 88 mcg Magnesium Oxide (Magnesium Oxide 400 Mg Tab) 400 mg PO DAILY [facility] Stop: 01/04/22 08:59 Last Admin: 12/08/21 09:09 Dose: 400 mg Metoprolol Succinate (Metoprolol Succ 50mg Ext Rel Tab) 100 mg PO BID [facility] Stop: 01/03/22 20:59 Last Admin: 12/08/21 09:09 Dose: 100 mg Miscellaneous (Carbohydrates For Hypoglycemia ) 15 - 30 gm PO UD PRN PRN Reason: Hypoglycemia Protocol Stop: 01/03/22 15:27 Last Admin: 12/05/21 20:48 Dose: 15 gm Miscellaneous Information (Pharmacy Glycemic Mgmt Consult) 1 each N/A UD PRN PRN Reason: Consult Stop: 01/05/22 08:55 Oxycodone HCl (Oxycodone Hcl Ir 5 Mg Tab (Immediate Release)) 5 mg PO Q4H PRN PRN Reason: Pain Stop: 12/19/21 13:19 Last Admin: 12/06/21 12:42 Dose: 5 mg Pantoprazole Sodium (Pantoprazole 40 Mg Tab) 40 mg PO BID [facility] Stop: 01/05/22 20:59 Last Admin: 12/08/21 09:09 Dose: 40 mg Polyethylene Glycol (Polyethylene (Miralax) 17 Gm Pack) 17 gm PO DAILY [facility] Stop: 01/06/22 08:59 Last Admin: 12/08/21 09:09 Dose: 17 gm Vitamin D (Cholecalciferol 1,000 Units 25 Mcg Tab) 1,000 units PO HS [facility] Stop: 01/03/22 20:59 Last Admin: 12/07/21 20:15 Dose: 1,000 units
[2021-12-08] MEDS: oxyCODONE HCL IR 5 MG TAB (IMMEDIATE RELEASE) PO PRN ×2 (16:11→20:52)
[2021-12-08] MEDS: allopurinoL 300 MG TAB PO SCH (20:51)
[2021-12-08] MEDS: ATORVASTATIN 40 MG TAB PO SCH (20:51)
[2021-12-08] MEDS: CHOLECALCIFEROL 1,000 UNITS 25 MCG TAB PO SCH (20:52)
[2021-12-09] MEDS: LEVOTHYROXINE SODIUM 88 MCG TABLET PO SCH (06:00)
[2021-12-09] MEDS: DOXYCYCLINE HYCLATE 100 MG CAP PO SCH (06:00)
[2021-12-09] MEDS: oxyCODONE HCL IR 5 MG TAB (IMMEDIATE RELEASE) PO PRN ×2 (06:00→18:00)
[2021-12-09] MEDS: ACETAMINOPHEN 500 MG TAB PO SCH ×3 (06:01→22:00)
[2021-12-09 06:13] LABS: Hematocrit (blood only) 28.1 % (34.1-44.9); Hemoglobin 8.9 g/dl (12.0-16.0); Mean Corpuscular Hemoglobin 29.9 pg (25.0-34.0); Mean Corpuscular Hgb Conc 31.7 g/dL (32.0-36.0); Mean Corpuscular Volume 94.3 fL (80.0-100.0); Mean Platelet Volume 11.5 fL (9.4-12.3); Platelet Count 100 K/uL (130-400); RDW Standard Deviation 92.8 fL (36.4-46.3); Red Blood Count 2.98 M/uL (3.93-5.22); White Blood Count 6.41 K/ul (4.8-10.8)
[2021-12-09 06:40] LABS: BUN Creatinine Ratio 43.7 (10-20); Calcium 8.4 mg/dl (8.5-10.1); Est GFR (African American) 59.9 ml/min; Est GFR (Non-African American) 51.7 ml/min; Potassium 4.5 mmol/L (3.5-5.1)
[2021-12-09] MEDS: INSULIN ASPART PER UNIT SC SCH ×4 (08:19→21:45)
[2021-12-09] MEDS: METOPROLOL SUCC 50MG EXT REL TAB PO SCH ×2 (08:20→22:02)
[2021-12-09] MEDS: DAPTOmycin 200 MG in SYRINGE 0 ML IV SCH (08:20)
[2021-12-09] MEDS: MAGNESIUM OXIDE 400 MG TAB PO SCH (08:20)
[2021-12-09] MEDS: POLYETHYLENE (MIRALAX) 17 GM PACK PO SCH (08:20)
[2021-12-09] MEDS: PANTOprazole 40 MG TAB PO SCH ×2 (08:20→22:01)
[2021-12-09] MEDS: CEFEPIME 2,000 MG in SYRINGE 0 ML IV SCH ×2 (09:54→21:39)
--- NOTE | 2021-12-09 12:09 | Hospitalist Progress Note ---
Date of Service December 09, 2021 Assessment & Plan (1) Wound of right lower extremity: (2) Dysphagia: (3) Metabolic acidosis: (4) Diastolic heart failure: (5) Elevated troponin: (6) Afib: (7) Generalized weakness: (8) Ambulatory dysfunction: (9) Type II diabetes mellitus, uncontrolled: (10) Hypothyroidism: (11) Noncompliance: Plan RLE wound/pain- suspected venous ulcer with infection. - Wound clx shows pseudomonas and MRSA - Continue cefepime/dapto- monitor for improvement- not septic - Ceftriaxone changed to cefepime 12/07 D3. No oral ABx option for pseudomonas as QTc prolonged. - Was on doxy since admission but MRSA resistant. Daptomycin added 12/09 and doxy discontinued. Can consider bactrim at discharge for MRSA. - Xray tibia/fibula with no acute abnormality. - ESR, CRP, WBC normal. Seen by ortho and WOCN. - Ortho did not recommend acute intervention - Continue local wound care Dysphagia due to severe esophagitis. No candidiasis in clx and pathology - s/p EGD 12/06. Per GI, found to have grade D reflux esophagitis and esophageal plaques suspicious for esophageal candidiasis. Additional findings included a 5 cm hiatal hernia in addition to atrophic gastritis - Biopsies were obtained from the stomach, esophagus and brushings performed for evaluation of candidiasis Recommendations from GI - PPI bid for 12 weeks - Pathology shows ulcerative esophagitis but negative for H pylori, fungus, viral inclusions or foreign body particles - Stopped diflucan as patho and clx negative for fungus. - Better pill hygiene for the patient with having her be upright after all meals and tablets - Repeat upper endoscopy in 3 months Metabolic acidosis- stable. s/p bicarb drip. nephro signed off Chronic diastolic CHF- doesn't look overtly hypervolemic. Will resume home lasix as indicated Chronic A fib- not on anticoag d/t h/o freq falls and h/o SAH per chart review - digoxin discontinued and toprol continued per cardio DM-2 with hypoglycemia - hypoglycemia resolved. hypoglycemia in setting of mismatch of insulin and poor oral intake and required d5 infusion. - Glycemic pharmacist managing her insulin. Hypothyroidism - TSH high, T4 low. - dose of synthroid increased from 75 to 88 mcg daily, follow up as OP with repeat TFT in 4-6 weeks Thrombocytopenia - stable, monitor, no bleed Chronic anemia- Hb stable, possibly anemia of chronic disease. Monitor. Generalized weakness/ambulatory dysfunction - PT OT eval DVT ppx- sc heparin Dispo- Will need IV ABx for leg wound as prolonged QTc precludes oral ABx options. PT recommends SNF. Admission and Anticipated Discharge Date Admission Date: December 04, 2021 Subjective Feels improving. Appetite improved. Denies any dysphagia. No fever or chills. Leg pain is improved. Per RN, had small amount of vomiting after I left. Physical Exam Physical Exam: General: Lying comfortably in bed, not in distress, on room air Chest:Fair breath sounds bilaterally, no wheezes or crackles CVS: Irregular, normal heart sounds Abdomen: Soft, non tender, not distended, normal bowel sounds Neuro: Awake, alert, conversing ok, non focal Extremities: RLE ulcer noted- stable to improving. B/L LE venous stasis changes with some edema. Results & Data Results & Data ([facility]) Vital Signs (Past 12 Hours) Vital Signs Temp Pulse Pulse Resp BP BP Pulse Ox 12/09/21 07:53 36.7 C 97 H 18 113/73 96 12/09/21 06:57 73 12/09/21 04:02 36.7 C 87 18 118/80 98 O2 Del Method 12/09/21 07:53 Room Air 12/09/21 06:57 12/09/21 04:02 Room Air Laboratory Results Short CBC 12/09/21 Range/Units 05:52 WBC 6.41 (4.8-10.8) K/ul Hgb 8.9 L (12.0-16.0) g/dl Hct 28.1 L (34.1-44.9) % Plt Count 100 L (130-400) K/uL BMP 12/09/21 05:52 Sodium 137 Potassium 4.5 Chloride 111 H Carbon Dioxide 18 L BUN 45 H Creatinine 1.03 Glucose 134 H Calcium 8.4 L Medications Administered Current Inpatient Medications Acetaminophen (Acetaminophen 500 Mg Tab) 1,000 mg PO Q8H [facility] Stop: 01/03/22 22:29 Last Admin: 12/09/21 06:01 Dose: 1,000 mg Allopurinol (Allopurinol 300 Mg Tab) 300 mg PO HS [facility] Stop: 01/03/22 20:59 Last Admin: 12/08/21 20:51 Dose: 300 mg Atorvastatin Calcium (Atorvastatin 40 Mg Tab) 40 mg PO HS [facility] Stop: 01/03/22 20:59 Last Admin: 12/08/21 20:51 Dose: 40 mg Dextrose (Dextrose 50% 50 Ml Syringe) 25 - 50 ml IV UD PRN; Protocol PRN Reason: Hypoglycemia Protocol Stop: 01/03/22 15:27 Last Admin: 12/06/21 06:22 Dose: 50 ml Glucagon (Glucagon For Inj 1 Mg Vial) 1 mg SQ UD PRN; Protocol PRN Reason: Hypoglycemia Protocol Stop: 01/03/22 15:27 Glucose (Glucose 40% Gel 15 Gm Tube) 15 - 30 gm PO UD PRN; Protocol PRN Reason: Hypoglycemia Protocol Stop: 01/03/22 15:27 Glucose (Glucose 10 Tab/Tube) 4 - 8 tab PO UD PRN; Protocol PRN Reason: Hypoglycemia Treatment Stop: 01/03/22 15:27 Cefepime HCl 2,000 mg/ Syringe 20 mls @ 5 mls/min IV Q12H [facility]; Protocol Stop: 12/14/21 09:59 Last Admin: 12/09/21 09:54 Dose: 5 mls/min Daptomycin 200 mg/ Syringe 4 mls @ 2 mls/min IV Q24H [facility]; Protocol Stop: 12/16/21 07:44 Last Admin: 12/09/21 08:20 Dose: 2 mls/min Promethazine HCl 12.5 mg/ (Sodium Chloride) 50.5 mls @ 202 mls/hr IV Q6H PRN PRN Reason: Nausea And Vomiting Stop: 01/08/22 11:19 Insulin Aspart (Insulin Aspart Per Unit) 0 units SC ACHS [facility] Stop: 01/03/22 16:29 Last Admin: 12/09/21 08:19 Dose: 1 units Levothyroxine Sodium (Levothyroxine Sodium 88 Mcg Tablet) 88 mcg PO DAILYBB [facility] Stop: 01/07/22 06:29 Last Admin: 12/09/21 06:00 Dose: 88 mcg Magnesium Oxide (Magnesium Oxide 400 Mg Tab) 400 mg PO DAILY [facility] Stop: 01/04/22 08:59 Last Admin: 12/09/21 08:20 Dose: 400 mg Metoprolol Succinate (Metoprolol Succ 50mg Ext Rel Tab) 100 mg PO BID [facility] Stop: 01/03/22 20:59 Last Admin: 12/09/21 08:20 Dose: 100 mg Miscellaneous (Carbohydrates For Hypoglycemia ) 15 - 30 gm PO UD PRN PRN Reason: Hypoglycemia Protocol Stop: 01/03/22 15:27 Last Admin: 12/05/21 20:48 Dose: 15 gm Miscellaneous Information (Pharmacy Glycemic Mgmt Consult) 1 each N/A UD PRN PRN Reason: Consult Stop: 01/05/22 08:55 Oxycodone HCl (Oxycodone Hcl Ir 5 Mg Tab (Immediate Release)) 5 mg PO Q4H PRN PRN Reason: Pain Stop: 12/19/21 13:19 Last Admin: 12/09/21 06:00 Dose: 5 mg Pantoprazole Sodium (Pantoprazole 40 Mg Tab) 40 mg PO BID [facility] Stop: 01/05/22 20:59 Last Admin: 12/09/21 08:20 Dose: 40 mg Polyethylene Glycol (Polyethylene (Miralax) 17 Gm Pack) 17 gm PO DAILY [facility] Stop: 01/06/22 08:59 Last Admin: 12/09/21 08:20 Dose: 17 gm Vitamin D (Cholecalciferol 1,000 Units 25 Mcg Tab) 1,000 units PO HS [facility] Stop: 01/03/22 20:59 Last Admin: 12/08/21 20:52 Dose: 1,000 units
[2021-12-09] MEDS: PROMETHAZINE HCL 12.5 MG in SODIUM CHLORIDE 0.9% 50 ML IV PRN (12:41)
[2021-12-09] MEDS: allopurinoL 300 MG TAB PO SCH (22:00)
[2021-12-09] MEDS: CHOLECALCIFEROL 1,000 UNITS 25 MCG TAB PO SCH (22:02)
[2021-12-10] MEDS: LEVOTHYROXINE SODIUM 88 MCG TABLET PO SCH (05:32)
[2021-12-10] MEDS: ACETAMINOPHEN 500 MG TAB PO SCH ×3 (05:32→21:17)
[2021-12-10] MEDS: INSULIN ASPART PER UNIT SC SCH ×4 (09:07→21:16)
[2021-12-10] MEDS: DAPTOmycin 200 MG in SYRINGE 0 ML IV SCH (09:48)
[2021-12-10] MEDS: POLYETHYLENE (MIRALAX) 17 GM PACK PO SCH (09:48)
[2021-12-10] MEDS: MAGNESIUM OXIDE 400 MG TAB PO SCH (09:48)
[2021-12-10] MEDS: METOPROLOL SUCC 50MG EXT REL TAB PO SCH ×2 (09:48→21:16)
[2021-12-10] MEDS: CEFEPIME 2,000 MG in SYRINGE 0 ML IV SCH ×2 (09:48→21:19)
[2021-12-10] MEDS: PANTOprazole 40 MG TAB PO SCH ×2 (09:48→21:17)
--- NOTE | 2021-12-10 10:24 | Pharmacy Report ---
Pharmacy Glycemic Sign Off Nt - Date of Service December 10, 2021 - Assessment & Plan ASSESSMENT: * Pharmacy was consulted by Dr Michele on 12/06/21 for glycemic control and to write orders per [facility] inpatient glycemic control protocol. * Major changes made by pharmacy to antidiabetic regimen include: * initiation of Novolog scale * Patient has been receiving/requiring 5 units of insulin per day for adequate glycemic control * BSGs ranging 114- 164 mg/dl * Regimen has only required minor adjustments over the past 48hrs to achieve this level of control * Do not anticipate further changes in patient status that would quickly deteriorate glycemic control (i.e. patient to be NPO for upcoming procedure, steroids tapering, starting tube feedings, etc). * Please see recommendations for outpatient antidiabetic regimen below. PLAN FOR INPATIENT GLYCEMIC CONTROL: No changes needed to current regimen. * Continue to hold basal insulin * Continue NovoLog per scale ACHS/Q6hrs while NPO * Goal range = 120 - 160 mg/dl * CF = 30 mg/dl/unit * CR = 1 unit for ever 10 g CHO consumed * Pharmacy is signing off of glycemic consult and will no longer be making adjustments to inpatient regimen. Please feel free to re-consult if needed. Thank you.
--- NOTE | 2021-12-10 11:55 | Hospitalist Progress Note ---
Date of Service December 10, 2021 Assessment & Plan (1) Wound of right lower extremity: (2) Dysphagia: (3) Metabolic acidosis: (4) Diastolic heart failure: (5) Elevated troponin: (6) Afib: (7) Generalized weakness: (8) Ambulatory dysfunction: (9) Type II diabetes mellitus, uncontrolled: (10) Hypothyroidism: (11) Noncompliance: Plan RLE wound/pain- suspected venous ulcer with infection. - Wound clx shows pseudomonas and MRSA - Continue cefepime/dapto- monitor for improvement- not septic - Ceftriaxone changed to cefepime 12/07 D3. No oral ABx option for pseudomonas as QTc prolonged. - Was on doxy since admission but MRSA resistant. Daptomycin added 12/09 and doxy discontinued. Can consider bactrim at discharge for MRSA. - Xray tibia/fibula with no acute abnormality. - ESR, CRP, WBC normal. Seen by ortho and WOCN. - Ortho did not recommend acute intervention - Continue local wound care Dysphagia due to severe esophagitis. No candidiasis in clx and pathology - s/p EGD 12/06. Per GI, found to have grade D reflux esophagitis and esophageal plaques suspicious for esophageal candidiasis. Additional findings included a 5 cm hiatal hernia in addition to atrophic gastritis - Biopsies were obtained from the stomach, esophagus and brushings performed for evaluation of candidiasis Recommendations from GI - PPI bid for 12 weeks - Pathology shows ulcerative esophagitis but negative for H pylori, fungus, viral inclusions or foreign body particles - Stopped diflucan as patho and clx negative for fungus. - Better pill hygiene for the patient with having her be upright after all meals and tablets - Repeat upper endoscopy in 3 months Metabolic acidosis- stable. s/p bicarb drip. nephro signed off Chronic diastolic CHF- doesn't look overtly hypervolemic. Will resume home lasix as indicated Chronic A fib- not on anticoag d/t h/o freq falls and h/o SAH per chart review - digoxin discontinued and toprol continued per cardio DM-2 with hypoglycemia - hypoglycemia resolved. hypoglycemia in setting of mismatch of insulin and poor oral intake and required d5 infusion. - Glycemic pharmacist managing her insulin. Hypothyroidism - TSH high, T4 low. - dose of synthroid increased from 75 to 88 mcg daily, follow up as OP with repeat TFT in 4-6 weeks Thrombocytopenia - stable, monitor, no bleed Chronic anemia- Hb stable, possibly anemia of chronic disease. Monitor. Generalized weakness/ambulatory dysfunction - PT OT eval DVT ppx- sc heparin Dispo- Will need IV ABx for leg wound as prolonged QTc precludes oral ABx options. PT recommends SNF. Medically stable for discharge. Admission and Anticipated Discharge Date Admission Date: December 04, 2021 Subjective Feels okay. Pain is better. has intermittent nausea but denies dysphagia. Appetite is somewhat improved. No fever, chills. Physical Exam Physical Exam: General: Lying comfortably in bed, not in distress, on room air Chest:Fair breath sounds bilaterally, no wheezes or crackles CVS: Irregular, normal heart sounds Abdomen: Soft, non tender, not distended, normal bowel sounds Neuro: Awake, alert, conversing ok, non focal Extremities: RLE ulcer noted- improving. B/L LE venous stasis changes with some edema. Results & Data Results & Data ([facility]) Vital Signs (Past 12 Hours) Vital Signs Temp Pulse Pulse Resp BP BP Pulse Ox 12/10/21 11:10 12/10/21 08:00 36.5 C 97 H 16 105/59 L 97 12/10/21 07:23 36.6 C 87 16 105/68 94 12/10/21 07:13 100 H 12/10/21 02:57 36.7 C 94 H 18 105/69 99 O2 Del Method 12/10/21 11:10 Room Air 12/10/21 08:00 Room Air 12/10/21 07:23 Room Air 12/10/21 07:13 12/10/21 02:57 Room Air Medications Administered Current Inpatient Medications Acetaminophen (Acetaminophen 500 Mg Tab) 1,000 mg PO Q8H [facility] Stop: 01/03/22 22:29 Last Admin: 12/10/21 05:32 Dose: 1,000 mg Allopurinol (Allopurinol 300 Mg Tab) 300 mg PO HS [facility] Stop: 01/03/22 20:59 Last Admin: 12/09/21 22:00 Dose: 300 mg Atorvastatin Calcium (Atorvastatin 40 Mg Tab) 40 mg PO HS [facility] Stop: 01/03/22 20:59 Last Admin: 12/08/21 20:51 Dose: 40 mg Dextrose (Dextrose 50% 50 Ml Syringe) 25 - 50 ml IV UD PRN; Protocol PRN Reason: Hypoglycemia Protocol Stop: 01/03/22 15:27 Last Admin: 12/06/21 06:22 Dose: 50 ml Glucagon (Glucagon For Inj 1 Mg Vial) 1 mg SQ UD PRN; Protocol PRN Reason: Hypoglycemia Protocol Stop: 01/03/22 15:27 Glucose (Glucose 40% Gel 15 Gm Tube) 15 - 30 gm PO UD PRN; Protocol PRN Reason: Hypoglycemia Protocol Stop: 01/03/22 15:27 Glucose (Glucose 10 Tab/Tube) 4 - 8 tab PO UD PRN; Protocol PRN Reason: Hypoglycemia Treatment Stop: 01/03/22 15:27 Cefepime HCl 2,000 mg/ Syringe 20 mls @ 5 mls/min IV Q12H [facility]; Protocol Stop: 12/14/21 09:59 Last Admin: 12/10/21 09:48 Dose: 5 mls/min Daptomycin 200 mg/ Syringe 4 mls @ 2 mls/min IV Q24H [facility]; Protocol Stop: 12/16/21 07:44 Last Admin: 12/10/21 09:48 Dose: 2 mls/min Promethazine HCl 12.5 mg/ (Sodium Chloride) 50.5 mls @ 202 mls/hr IV Q6H PRN PRN Reason: Nausea And Vomiting Stop: 01/08/22 11:19 Last Infusion: 12/09/21 13:36 Dose: Infused Insulin Aspart (Insulin Aspart Per Unit) 0 units SC ACHS [facility] Stop: 01/03/22 16:29 Last Admin: 12/10/21 09:07 Dose: Not Given Levothyroxine Sodium (Levothyroxine Sodium 88 Mcg Tablet) 88 mcg PO DAILYBB [facility] Stop: 01/07/22 06:29 Last Admin: 12/10/21 05:32 Dose: 88 mcg Magnesium Oxide (Magnesium Oxide 400 Mg Tab) 400 mg PO DAILY [facility] Stop: 01/04/22 08:59 Last Admin: 12/10/21 09:48 Dose: 400 mg Metoprolol Succinate (Metoprolol Succ 50mg Ext Rel Tab) 100 mg PO BID [facility] Stop: 01/03/22 20:59 Last Admin: 12/10/21 09:48 Dose: 100 mg Miscellaneous (Carbohydrates For Hypoglycemia ) 15 - 30 gm PO UD PRN PRN Reason: Hypoglycemia Protocol Stop: 01/03/22 15:27 Last Admin: 08/23/22 20:48 Dose: 15 gm Oxycodone HCl (Oxycodone Hcl Ir 5 Mg Tab (Immediate Release)) 5 mg PO Q4H PRN PRN Reason: Pain Stop: 12/19/21 13:19 Last Admin: 12/09/21 18:00 Dose: 5 mg Pantoprazole Sodium (Pantoprazole 40 Mg Tab) 40 mg PO BID [facility] Stop: 01/05/22 20:59 Last Admin: 12/10/21 09:48 Dose: 40 mg Polyethylene Glycol (Polyethylene (Miralax) 17 Gm Pack) 17 gm PO DAILY [facility] Stop: 01/06/22 08:59 Last Admin: 12/10/21 09:48 Dose: 17 gm Vitamin D (Cholecalciferol 1,000 Units 25 Mcg Tab) 1,000 units PO HS [facility] Stop: 01/03/22 20:59 Last Admin: 12/09/21 22:02 Dose: 1,000 units
[2021-12-10] MEDS: oxyCODONE HCL IR 5 MG TAB (IMMEDIATE RELEASE) PO PRN (14:04)
[2021-12-10] MEDS: PROMETHAZINE HCL 12.5 MG in SODIUM CHLORIDE 0.9% 50 ML IV PRN (19:06)
[2021-12-10] MEDS: allopurinoL 300 MG TAB PO SCH (21:15)
[2021-12-10] MEDS: CHOLECALCIFEROL 1,000 UNITS 25 MCG TAB PO SCH (21:15)
[2021-12-11] MEDS: PROMETHAZINE HCL 12.5 MG in SODIUM CHLORIDE 0.9% 50 ML IV PRN (03:19)
[2021-12-11] MEDS: ACETAMINOPHEN 500 MG TAB PO SCH ×3 (05:30→21:23)
[2021-12-11] MEDS: LEVOTHYROXINE SODIUM 88 MCG TABLET PO SCH (05:31)
[2021-12-11] MEDS: oxyCODONE HCL IR 5 MG TAB (IMMEDIATE RELEASE) PO PRN (05:31)
[2021-12-11 06:55] LABS: Hematocrit (blood only) 27.7 % (34.1-44.9); Hemoglobin 8.9 g/dl (12.0-16.0); Mean Corpuscular Hemoglobin 29.7 pg (25.0-34.0); Mean Corpuscular Hgb Conc 32.1 g/dL (32.0-36.0); Mean Corpuscular Volume 92.3 fL (80.0-100.0); Mean Platelet Volume 12.2 fL (9.4-12.3); Platelet Count 102 K/uL (130-400); RDW Coefficient of Variation 26.7 % (11.5-14.5); RDW Standard Deviation 90.8 fL (36.4-46.3); White Blood Count 6.11 K/ul (4.8-10.8)
[2021-12-11 07:18] LABS: Calcium 8.7 mg/dl (8.5-10.1); Creatinine Clr Calc Pharmacy 32.2 ml/min; Est GFR (African American) 54.1 ml/min; Est GFR (Non-African American) 46.7 ml/min
[2021-12-11] MEDS: METOPROLOL SUCC 50MG EXT REL TAB PO SCH ×2 (08:19→20:28)
[2021-12-11] MEDS: POLYETHYLENE (MIRALAX) 17 GM PACK PO SCH (08:19)
[2021-12-11] MEDS: PANTOprazole 40 MG TAB PO SCH ×2 (08:19→20:30)
[2021-12-11] MEDS: MAGNESIUM OXIDE 400 MG TAB PO SCH (08:19)
[2021-12-11] MEDS: INSULIN ASPART PER UNIT SC SCH ×4 (08:22→20:30)
[2021-12-11] MEDS: DAPTOmycin 200 MG in SYRINGE 0 ML IV SCH (08:25)
[2021-12-11] MEDS: CEFEPIME 2,000 MG in SYRINGE 0 ML IV SCH ×2 (10:15→21:23)
--- NOTE | 2021-12-11 16:45 | Hospitalist Progress Note ---
Date of Service December 11, 2021 Assessment & Plan (1) Wound of right lower extremity: (2) Dysphagia: (3) Metabolic acidosis: (4) Diastolic heart failure: (5) Elevated troponin: (6) Afib: (7) Generalized weakness: (8) Ambulatory dysfunction: (9) Type II diabetes mellitus, uncontrolled: (10) Hypothyroidism: (11) Noncompliance: Plan RLE wound/pain- suspected venous ulcer with infection. - Wound clx shows pseudomonas and MRSA - Continue cefepime/dapto- monitor for improvement- not septic - Ceftriaxone changed to cefepime 12/07 D3. No oral ABx option for pseudomonas as QTc prolonged. - Was on doxy since admission but MRSA resistant. Daptomycin added 12/09 and doxy discontinued. Can consider bactrim at discharge for MRSA. - Xray tibia/fibula with no acute abnormality. - ESR, CRP, WBC normal. Seen by ortho and WOCN. - Ortho did not recommend acute intervention - Continue local wound care Dysphagia due to severe esophagitis. No candidiasis in clx and pathology - s/p EGD 12/06. Per GI, found to have grade D reflux esophagitis and esophageal plaques suspicious for esophageal candidiasis. Additional findings included a 5 cm hiatal hernia in addition to atrophic gastritis - Biopsies were obtained from the stomach, esophagus and brushings performed for evaluation of candidiasis Recommendations from GI - PPI bid for 12 weeks - Pathology shows ulcerative esophagitis but negative for H pylori, fungus, viral inclusions or foreign body particles - Stopped diflucan as patho and clx negative for fungus. - Better pill hygiene for the patient with having her be upright after all meals and tablets - Repeat upper endoscopy in 3 months Metabolic acidosis- stable. s/p bicarb drip. nephro signed off. will start on sodium bicarb tabs. Chronic diastolic CHF- doesn't look overtly hypervolemic. Will resume home lasix as indicated Chronic A fib- not on anticoag d/t h/o freq falls and h/o SAH per chart review - digoxin discontinued and toprol continued per cardio DM-2 with hypoglycemia - hypoglycemia resolved. hypoglycemia in setting of mismatch of insulin and poor oral intake and required d5 infusion. - Glycemic pharmacist signed off. Hypothyroidism - TSH high, T4 low. - dose of synthroid increased from 75 to 88 mcg daily, follow up as OP with repeat TFT in 4-6 weeks Thrombocytopenia - stable, monitor, no bleed Chronic anemia- Hb stable, possibly anemia of chronic disease. Monitor. Generalized weakness/ambulatory dysfunction - PT OT recommends SNF DVT ppx- sc heparin Dispo- Medically stable for discharge. PT recommends SNF and family agrees however patient adamantly declines rehab. She will need IV cefepime for pseudomonas leg wound as prolonged QTc precludes oral ABx, can likely do bactrim for MRSA coverage. Admission and Anticipated Discharge Date Admission Date: December 04, 2021 Subjective She feels fine. Pain is controlled. Appetite improved. N/V improved. No fever, chills. She adamantly declines to go to rehab but does admit that she is weak and would want more therapy sessions. Physical Exam Physical Exam: General: Lying comfortably in bed, not in distress, on room air Chest:Fair breath sounds bilaterally, no wheezes or crackles CVS: Irregular, normal heart sounds Abdomen: Soft, non tender, not distended, normal bowel sounds Neuro: Awake, alert, conversing ok, non focal Extremities: RLE ulcer noted- improving. B/L LE venous stasis changes with some edema. Results & Data Results & Data ([facility]) Vital Signs (Past 12 Hours) Vital Signs Temp Pulse Pulse Resp BP BP Pulse Ox 12/11/21 15:41 80 12/11/21 15:23 36.3 C L 84 13 101/73 95 12/11/21 14:43 99 12/11/21 11:00 36.2 C L 85 15 105/58 L 97 12/11/21 08:48 12/11/21 08:43 80 12/11/21 07:58 36.8 C 90 15 103/70 98 O2 Del Method 12/11/21 15:41 12/11/21 15:23 Room Air 12/11/21 14:43 12/11/21 11:00 Room Air 12/11/21 08:48 Room Air 12/11/21 08:43 12/11/21 07:58 Room Air Laboratory Results Short CBC 12/11/21 Range/Units 06:29 WBC 6.11 (4.8-10.8) K/ul Hgb 8.9 L (12.0-16.0) g/dl Hct 27.7 L (34.1-44.9) % Plt Count 102 L (130-400) K/uL BMP 12/11/21 06:29 Sodium 138 Potassium 5.0 Chloride 112 H Carbon Dioxide 18 L BUN 47 H Creatinine 1.12 Glucose 133 H Calcium 8.7 Medications Administered Current Inpatient Medications Acetaminophen (Acetaminophen 500 Mg Tab) 1,000 mg PO Q8H ANGELINE Stop: 01/03/22 22:29 Last Admin: 12/11/21 14:28 Dose: 1,000 mg Allopurinol (Allopurinol 300 Mg Tab) 300 mg PO HS ANGELINE Stop: 01/03/22 20:59 Last Admin: 12/10/21 21:15 Dose: 300 mg Atorvastatin Calcium (Atorvastatin 40 Mg Tab) 40 mg PO HS ANGELINE Stop: 01/03/22 20:59 Last Admin: 12/08/21 20:51 Dose: 40 mg Dextrose (Dextrose 50% 50 Ml Syringe) 25 - 50 ml IV UD PRN; Protocol PRN Reason: Hypoglycemia Protocol Stop: 01/03/22 15:27 Last Admin: 12/06/21 06:22 Dose: 50 ml Glucagon (Glucagon For Inj 1 Mg Vial) 1 mg SQ UD PRN; Protocol PRN Reason: Hypoglycemia Protocol Stop: 01/03/22 15:27 Glucose (Glucose 40% Gel 15 Gm Tube) 15 - 30 gm PO UD PRN; Protocol PRN Reason: Hypoglycemia Protocol Stop: 01/03/22 15:27 Glucose (Glucose 10 Tab/Tube) 4 - 8 tab PO UD PRN; Protocol PRN Reason: Hypoglycemia Treatment Stop: 01/03/22 15:27 Cefepime HCl 2,000 mg/ Syringe 20 mls @ 5 mls/min IV Q12H ANGELINE; Protocol Stop: 12/14/21 09:59 Last Admin: 12/11/21 10:15 Dose: 5 mls/min Daptomycin 200 mg/ Syringe 4 mls @ 2 mls/min IV Q24H ANGELINE; Protocol Stop: 12/16/21 07:44 Last Admin: 12/11/21 08:25 Dose: 2 mls/min Promethazine HCl 12.5 mg/ (Sodium Chloride) 50.5 mls @ 202 mls/hr IV Q6H PRN PRN Reason: Nausea And Vomiting Stop: 01/08/22 11:19 Last Infusion: 12/11/21 03:58 Dose: Infused Insulin Aspart (Insulin Aspart Per Unit) 0 units SC ACHS ANGELINE Stop: 01/03/22 16:29 Last Admin: 12/11/21 13:11 Dose: 4 units Levothyroxine Sodium (Levothyroxine Sodium 88 Mcg Tablet) 88 mcg PO DAILYBB ANGELINE Stop: 01/07/22 06:29 Last Admin: 12/11/21 05:31 Dose: 88 mcg Magnesium Oxide (Magnesium Oxide 400 Mg Tab) 400 mg PO DAILY ANGELINE Stop: 01/04/22 08:59 Last Admin: 12/11/21 08:19 Dose: 400 mg Metoprolol Succinate (Metoprolol Succ 50mg Ext Rel Tab) 100 mg PO BID ANGELINE Stop: 01/03/22 20:59 Last Admin: 12/11/21 08:19 Dose: 100 mg Miscellaneous (Carbohydrates For Hypoglycemia ) 15 - 30 gm PO UD PRN PRN Reason: Hypoglycemia Protocol Stop: 01/03/22 15:27 Last Admin: 12/05/21 20:48 Dose: 15 gm Oxycodone HCl (Oxycodone Hcl Ir 5 Mg Tab (Immediate Release)) 5 mg PO Q4H PRN PRN Reason: Pain Stop: 12/19/21 13:19 Last Admin: 12/11/21 05:31 Dose: 5 mg Pantoprazole Sodium (Pantoprazole 40 Mg Tab) 40 mg PO BID ANGELINE Stop: 01/05/22 20:59 Last Admin: 12/11/21 08:19 Dose: 40 mg Polyethylene Glycol (Polyethylene (Miralax) 17 Gm Pack) 17 gm PO DAILY ANGELINE Stop: 01/06/22 08:59 Last Admin: 12/11/21 08:19 Dose: Not Given Vitamin D (Cholecalciferol 1,000 Units 25 Mcg Tab) 1,000 units PO HS ANGELINE Stop: 01/03/22 20:59 Last Admin: 12/10/21 21:15 Dose: 1,000 units
[2021-12-11] MEDS: CHOLECALCIFEROL 1,000 UNITS 25 MCG TAB PO SCH (20:29)
[2021-12-11] MEDS: allopurinoL 300 MG TAB PO SCH (20:29)
[2021-12-11] MEDS: SODIUM BICARBONATE 650 MG TAB PO SCH (21:22)
[2021-12-12] MEDS: oxyCODONE HCL IR 5 MG TAB (IMMEDIATE RELEASE) PO PRN ×2 (02:56→12:51)
[2021-12-12] MEDS: LEVOTHYROXINE SODIUM 88 MCG TABLET PO SCH (05:58)
[2021-12-12] MEDS: ACETAMINOPHEN 500 MG TAB PO SCH ×2 (05:58→15:48)
[2021-12-12 07:59] LABS: Hematocrit (blood only) 27.7 % (34.1-44.9); Hemoglobin 8.6 g/dl (12.0-16.0)
[2021-12-12 08:32] LABS: BUN Creatinine Ratio 42.3 (10-20); Calcium 8.8 mg/dl (8.5-10.1); Creatinine Clr Calc Pharmacy 32.5 ml/min; Est GFR (African American) 54.7 ml/min; Est GFR (Non-African American) 47.2 ml/min; Magnesium 2.2 mg/dl (1.7-2.4); Phosphorus 2.2 mg/dl (2.5-4.9); Potassium 4.9 mmol/L (3.5-5.1)
[2021-12-12] MEDS: INSULIN ASPART PER UNIT SC SCH ×2 (10:04→12:51)
[2021-12-12] MEDS: DAPTOmycin 200 MG in SYRINGE 0 ML IV SCH (10:15)
[2021-12-12] MEDS: CEFEPIME 2,000 MG in SYRINGE 0 ML IV SCH (10:15)
[2021-12-12] MEDS: MAGNESIUM OXIDE 400 MG TAB PO SCH (10:16)
[2021-12-12] MEDS: SODIUM BICARBONATE 650 MG TAB PO SCH (10:17)
[2021-12-12] MEDS: PANTOprazole 40 MG TAB PO SCH (10:17)
[2021-12-12] MEDS: METOPROLOL SUCC 50MG EXT REL TAB PO SCH (10:17)
[2021-12-12] MEDS: POLYETHYLENE (MIRALAX) 17 GM PACK PO SCH (10:18)
--- NOTE | 2021-12-12 16:03 | Hospitalist Progress Note ---
Date of Service December 12, 2021 Assessment & Plan (1) Wound of right lower extremity: (2) Dysphagia: (3) Metabolic acidosis: (4) Diastolic heart failure: (5) Elevated troponin: (6) Afib: (7) Generalized weakness: (8) Ambulatory dysfunction: (9) Type II diabetes mellitus, uncontrolled: (10) Hypothyroidism: (11) Noncompliance: Plan RLE wound/pain- suspected venous ulcer with infection. - Wound clx shows pseudomonas and MRSA - Continue cefepime/dapto- monitor for improvement- not septic - Ceftriaxone changed to cefepime 12/07 D3. No oral ABx option for pseudomonas as QTc prolonged. - Was on doxy since admission but MRSA resistant. Daptomycin added 12/09 and doxy discontinued. will do Bactrim DS for till 12/18/2021. - Xray tibia/fibula with no acute abnormality. - ESR, CRP, WBC normal. Seen by ortho and WOCN. - Ortho did not recommend acute intervention - Continue local wound care Dysphagia due to severe esophagitis. No candidiasis in clx and pathology - s/p EGD 12/06. Per GI, found to have grade D reflux esophagitis and esophageal plaques suspicious for esophageal candidiasis. Additional findings included a 5 cm hiatal hernia in addition to atrophic gastritis - Biopsies were obtained from the stomach, esophagus and brushings performed for evaluation of candidiasis Recommendations from GI - PPI bid for 12 weeks - Pathology shows ulcerative esophagitis but negative for H pylori, fungus, viral inclusions or foreign body particles - Stopped diflucan as patho and clx negative for fungus. - Better pill hygiene for the patient with having her be upright after all meals and tablets - Repeat upper endoscopy in 3 months Metabolic acidosis- stable. s/p bicarb drip. nephro signed off. will start on sodium bicarb tabs. Chronic diastolic CHF- doesn't look overtly hypervolemic. Continue home lasix Chronic A fib- not on anticoag d/t h/o freq falls and h/o SAH per chart review - digoxin discontinued and toprol continued per cardio DM-2 with hypoglycemia - hypoglycemia resolved. hypoglycemia in setting of mismatch of insulin and poor oral intake and required d5 infusion. - Glycemic pharmacist signed off. Hypothyroidism - TSH high, T4 low. - dose of synthroid increased from 75 to 88 mcg daily, follow up as OP with repeat TFT in 4-6 weeks Thrombocytopenia - stable, monitor, no bleed Chronic anemia- Hb stable, possibly anemia of chronic disease. Monitor. Generalized weakness/ambulatory dysfunction - PT OT recommends SNF DVT ppx- sc heparin Dispo- Medically stable for discharge. Plan for Discharge today if transportation can be arranged. Cefepime to be given by peripheral iv for 4 more days. Admission and Anticipated Discharge Date Admission Date: December 04, 2021 Subjective Patient seen and examined at bedside. She is comfortable; not in any distress. No complains of fever, chills, chest pain, shortness of breath or abdominal divina n. Review of Systems Review of Systems: All systems reviewed & are unremarkable except as noted in Subjective Physical Exam Physical Exam: General: Lying comfortably in bed, not in distress, on room air Chest:Fair breath sounds bilaterally, no wheezes or crackles CVS: Irregular, normal heart sounds Abdomen: Soft, non tender, not distended, normal bowel sounds Neuro: Awake, alert, conversing ok, non focal Extremities: RLE ulcer noted- improving. B/L LE venous stasis changes with some edema. Results & Data Results & Data ([facility]) Vital Signs (Past 12 Hours) Vital Signs Temp Pulse Pulse Resp BP BP Pulse Ox 12/12/21 15:02 36.5 C 85 17 112/65 98 12/12/21 06:15 100 H 12/12/21 10:54 36.4 C L 108 H 16 111/68 100 12/12/21 07:10 36.5 C 72 20 98/65 L 96 O2 Del Method 12/12/21 15:02 Room Air 12/12/21 06:15 12/12/21 10:54 Room Air 12/12/21 07:10 Room Air Laboratory Results Laboratory Results WBC 6.11 K/ul (4.8-10.8) 12/11/21 06:29 RBC 3.00 M/uL (3.93-5.22) L 12/11/21 06:29 Hgb 8.6 g/dl (12.0-16.0) L 12/12/21 07:13 Hct 27.7 % (34.1-44.9) L 12/12/21 07:13 MCV 92.3 fL (80.0-100.0) 12/11/21 06:29 MCH 29.7 pg (25.0-34.0) 12/11/21 06: MCHC 32.1 g/dL (32.0-36.0) 12/11/21 06: RDW Std Deviation 90.8 fL (36.4-46.3) H 12/11/21 06: RDW Coeff of [place] 26.7 % (11.5-14.5) H 12/11/21 06:29 Plt Count 102 K/uL (130-400) L 12/11/21 06: MPV 12.2 fL (9.4-12.3) 12/11/21 06:29 Immature Gran % (Auto) 0.5 % 12/04/21 11:25 Neut % (Auto) 79.5 % 12/04/21 11:25 Lymph % (Auto) 9.8 % 12/04/21 11:25 Rooks % (Auto) 9.8 % 12/04/21 11:25 Eos % (Auto) 0.2 % 12/04/21 11:25 Baso % (Auto) 0.2 % 12/04/21 11:25 Neut # (Auto) 5.30 K/uL (1.4-6.5) 12/04/21 11:25 Lymph # (Auto) 0.65 K/uL (1.2-3.4) L 12/04/21 11:25 Rooks # (Auto) 0.65 K/uL (0.24-0.82) 12/04/21 11:25 Eos # (Auto) 0.01 K/uL (0-0.50) 12/04/21 11:25 Baso # (Auto) 0.01 K/uL (0-0.2) 12/04/21 11:25 Immature Gran # (Auto) 0.03 K/uL (0.00-0.02) H 12/04/21 11:25 Poikilocytosis Present 12/04/21 11:25 Anisocytosis Present 12/04/21 11:25 ESR 30 mm/hr (0-30) 12/07/21 06:50 PT 17.4 Seconds (9.0-12.0) H 12/05/21 07:09 INR 1.7 (0.9-1.1) H 12/05/21 07:09 Fibrinogen 201 mg/dl (184-400) 12/04/21 20:18 ABG pH 7.37 (7.35-7.45) 12/04/21 14:27 ABG pCO2 20 mmHg (35-46) L 12/04/21 14:27 ABG pO2 93 mmHg (80-95) 12/04/21 14:27 ABG HCO3 12 mmol/L (19-24) L 12/04/21 14:27 ABG O2 Saturation > 100.0 % (90-95) H 12/04/21 14:27 ABG Base Excess -11.3 mEq/L (-9-1.8) L 12/04/21 14:27 Peter Test Pos (Pos) 12/04/21 14:27 VBG pH 7.29 (7.36-7.41) L 12/04/21 11:50 VBG pCO2 29 mmHg (38-50) L 12/04/21 11:50 VBG pO2 25 mmHg 12/04/21 11:50 VBG HCO3 14 mmol/L 12/04/21 11:50 VBG O2 Saturation < 60.0 % 12/04/21 11:50 VBG Base Excess -11.2 mEq/L 12/04/21 11:50 Oxygen Given ROOM AIR 12/04/21 14:27 Sodium 138 mmol/L (136-145) 12/12/21 07:13 Potassium 4.9 mmol/L (3.5-5.1) 12/12/21 07:13 Chloride 111 mmol/L (98-107) H 12/12/21 07:13 Carbon Dioxide 17 mmol/L (21-32) L 12/12/21 07:13 Anion Gap 10 (3-11) 12/12/21 07:13 BUN 47 mg/dl (6-23) H 12/12/21 07:13 Creatinine 1.11 mg/dl (0.6-1.2) 12/12/21 07:13 Est Cr Clr Drug Dosing 32.5 ml/min 12/12/21 07:13 Est GFR ( Amer) 54.7 ml/min 12/12/21 07:13 Est GFR (Non-Af Amer) 47.2 ml/min 12/12/21 07:13 BUN/Creatinine Ratio 42.3 (10-20) H 12/12/21 07:13 Glucose 147 mg/dl (70-99(Fasting)) H 12/12/21 07:13 POC Glucose 173 mg/dl (70-99) H 12/12/21 11:27 Estimat Average Glucose 177 mg/dl 12/05/21 07:09 Hemoglobin A1c 7.8 % (4.5-5.6) H 12/05/21 07:09 Lactate 1.0 mmol/L (0.4-2.0) 12/04/21 14:27 Calcium 8.8 mg/dl (8.5-10.1) 12/12/21 07:13 Phosphorus 2.2 mg/dl (2.5-4.9) L 12/12/21 07:13 Magnesium 2.2 mg/dl (1.7-2.4) 12/12/21 07:13 Total Bilirubin 0.9 mg/dl (0.2-1.0) 12/04/21 11:25 AST 38 U/L (13-39) 12/04/21 11:25 ALT 33 U/L (7-52) 12/04/21 11:25 Alkaline Phosphatase 179 U/L (34-104) H 12/04/21 11:25 Ammonia 38.0 umol/L (18-72) 12/05/21 07:09 Troponin I High Sens 32.8 pg/ml (0-14) H 12/05/21 01:42 C-Reactive Protein < 0.50 mg/dl (0-0.5) 12/06/21 06:55 B-Natriuretic Peptide 2883 pg/ml (0-100) H 12/04/21 11:50 Total Protein 7.2 gm/dl (6.0-8.3) 12/04/21 11:25 Albumin 3.7 gm/dl (3.4-5.0) 12/04/21 11:25 Globulin 3.5 gm/dl (2.5-4.0) 12/04/21 11:25 Albumin/Globulin Ratio 1.1 (0.9-2) 12/04/21 11:25 Triglycerides 75 mg/dl (0-150) 12/05/21 07:09 Cholesterol 65 mg/dl (0-200) 12/05/21 07:09 LDL Cholesterol, Calc 24 mg/dl 12/05/21 07:09 VLDL Cholesterol, Calc 15 mg/dl (0-30) 12/05/21 07:09 HDL Cholesterol 26 mg/dl 12/05/21 07:09 Cholesterol/HDL Ratio 2.5 (0-5) 12/05/21 07:09 Lipase 130 U/L (11-82) H 12/05/21 07:09 TSH 18.129 uIu/ml (0.300-4.500) H 12/04/21 14:28 Free T4 0.52 ng/dl (0.61-1.60) L 12/04/21 14:28 Urine Color Yellow 12/04/21 14:54 Urine Appearance Clear (Clear) 12/04/21 14:54 Urine pH 5.0 (4.5-7.5) 12/04/21 14:54 Ur Specific [place] 1.018 (1.000-1.030) 12/04/21 14:54 Urine Protein Trace (Negative) H 12/04/21 14:54 Urine Glucose (UA) Negative (Negative) 12/04/21 14:54 Urine Ketones Negative (Negative) 12/04/21 14:54 Urine Blood Negative (Negative) 12/04/21 14:54 Urine Nitrite Negative (Negative) 12/04/21 14:54 Urine Bilirubin Negative (Negative) 12/04/21 14:54 Urine Urobilinogen Negative (Negative) 12/04/21 14:54 Ur Leukocyte Esterase Trace (Negative) H 12/04/21 14:54 Urine WBC (Auto) 1-5 /hpf (0-5) 12/04/21 14:54 Urine RBC (Auto) 5-10 /hpf (0-4) H 12/04/21 14:54 U Hyaline Cast (Auto) 1-5 /lpf (0-5) 12/04/21 14:54 U Epithel Cells (Auto) 20-30 /lpf (0-5) H 12/04/21 14:54 Urine Bacteria (Auto) Negative (Negative) 12/04/21 14:54 Urine Osmolality 483 mOsm/kg (500-800) L 12/04/21 21:30 Ur Random Creatinine 56.7 mg/dl 12/04/21 21:30 U Random Total Protein 53.2 mg/dl (0-11.9) H 12/04/21 21:30 Ur Random Sodium 10 mmol/L 12/04/21 21:30 Ur Random Potassium 42.0 mmol/L 12/04/21 21:30 Ur Random Chloride 26 mmol/L 12/04/21 21:30 Protein/Creatinin Ratio 0.9 (0-0.2) H 12/04/21 21:30 Digoxin 0.4 ng/ml (0.8-2.0) L 12/04/21 14:27 Salicylates 18.3 mg/dl (3.0-30) 12/04/21 14:27 Urine Opiates Screen Neg (Neg) 12/04/21 14:54 Ur Methadone, Qual Neg (Neg) 12/04/21 14:54 Acetaminophen 9 ug/ml (10-30) L 12/04/21 20:18 Urine Barbiturates Neg (Neg) 12/04/21 14:54 Ur Phencyclidine (PCP) Neg (Neg) 12/04/21 14:54 U Amphetamin/Meth Scrn Neg (Neg) 12/04/21 14:54 MDMA (Ecstasy) Screen Neg (Neg) 12/04/21 14:54 U Benzodiazepines Scrn Neg (Neg) 12/04/21 14:54 Ur Cocaine Metabolite Neg (Neg) 12/04/21 14:54 U Marijuana (THC) Screen Neg (Neg) 12/04/21 14:54 Anaplasma Smear See Comment 12/04/21 20:18 A. phagocytophilum DNA Negative (Negative) 12/04/21 20:18 Babesia Smear See Comment 12/04/21 20:18 Babesia microti DNA PCR Not Detected (Not Detected) 12/04/21 20:18 Lyme Disease IgG Ab Negative (Negative) 12/04/21 20:18 Lyme Disease IgM Ab Negative (Negative) 12/04/21 20:18 SARS-CoV-2, RNA, NAAT NEGATIVE (NEGATIVE) 12/04/21 11:44 Impressions Chest X-Ray 12/04/21 11:33 SINGLE VIEW CHEST CLINICAL HISTORY: Atypical chest pain. FINDINGS: An AP, portable, upright chest radiograph is compared to study dated and correlated with chest CT dated 07/27/2021. The examination is degraded by portable technique and patient rotation. A hiatal hernia is noted. A 2-lead cardiac pacemaker is unchanged in position and partially obscures the left mid chest The heart is enlarged noting atherosclerotic calcification of the thoracic aorta. The pulmonary vasculature is noncongested. Chronic interstitial thickening is similar to previous. Scarring/atelectasis is noted at the lung bases. Question trace pleural effusions. No pneumothorax is seen. The skeletal structures are osteopenic. The bony thorax is grossly intact. IMPRESSION: 1. Cardiomegaly and cardiac pacemaker without radiographic evidence of congestive failure. 2. Suspect trace pleural effusions. ACT 112: Negative or not required by law. Electronically signed by: Isauro Mercado M.D. 12/04/2021 11:[address] 12/04/21 14:29 CT head/brain wo con CLINICAL HISTORY: 81 years-old Female with lethargy. Acutely altered mental status TECHNIQUE: Multiple axial CT images of the head were obtained without contrast. A dose lowering technique was utilized adhering to the principles of ALARA. CT DOSE: 537.48 mGy.cm COMPARISON: Head CT 08/08/2021 FINDINGS: No acute intracranial hemorrhage, midline shift, intracranial mass, hydrocephalus, territorial ischemia or abnormal extra-axial collection. Age- related involutional changes with ex vacuo ventriculomegaly. White matter hypodensities suggest chronic microvascular ischemic disease. Senescent calcifications of the lentiform nuclei. Chronic left cerebellar infarct. The calvarium is intact. Polypoid mucosal thickening of the left sphenoid sinus. Unremarkable soft tissues. Prior bilateral lens repair is suggested. IMPRESSION: No acute intracranial abnormality. ACT 112: Negative or not required by law. The above report was generated using voice recognition software. It may contain grammatical, syntax or spelling errors. Electronically signed by: Sarthak Quigley M.D. 12/04/2021 8:18 PM Tibia/Fibula X-Ray 12/06/21 09:01 RIGHT TIBIA AND FIBULA 2 VIEWS CLINICAL HISTORY: Wound pain. FINDINGS: AP and lateral views of the right tibia and fibula are compared to study dated 03/07/2021. The skeletal structures are heterogeneously osteopenic. There is no radiographic evidence of right tibial or fibular fracture. No bony erosion or periostitis is identified. Degenerative change is noted in the right knee and ankle joints. An intramedullary nail is partially visualized in the distal femur. A plantar calcaneal enthesophyte is observed. There is generalized atrophy of the regional soft tissues. There is advanced atherosclerotic calcification of the regional arteries. IMPRESSION: No acute bony abnormality is identified. Electronically signed by: Isauro Mercado M.D. 12/06/2021 12:45 PM KUB X-Ray 12/06/21 10:02 KUB HISTORY: Generalized abd pain ; eval stool burden COMPARISON: Abdomen and pelvis CT 07/27/2021. FINDINGS: The bowel gas pattern is unremarkable. There are no dilated loops of small bowel to suggest an obstruction. No renal calculi. No ureteral calculi. No pneumoperitoneum or pneumatosis. Moderate well-formed stool seen within the colon. Vascular calcifications are noted. Postoperative changes within the lower lumbar spine and an IVC filter are again noted. The heart is enlarged. Bilateral nephrolithiasis, unchanged. Stable calcifications in the deep pelvis consistent with phleboliths. Internal fixation of an old, healed left femoral fracture. IMPRESSION: 1. Moderate well-formed stool within the colon. 2. No evidence for bowel obstruction. 3. Additional findings as described above. ACT 112: Negative or not required by law. Electronically signed by: Godwin Ansari M.D. 12/06/2021 2:18 PM
--- NOTE | 2021-12-12 17:16 | Discharge Summary ---
Date of Service December 12, 2021 Admission HPI Per Admitting Provider This is a 81 yo F with PMHx of insulin-dependent T2DM uncontrolled, PAF not anticoagulated on warfarin due to hx of frequent galls and rectus sheath hematoma/subarachnoid hemorrhage in the past, history of sinus node dysfunction status post pacemaker placement in 2009, chronic HFpEF, peripheral neuropathy, hypothyroidism, HTN, HLD, chronic anemia with hgb baseline of 8-9. She has had multiple admissions in the past few months, most recently being in July 26-, discharged home but was unable to care for herself, then August 08-August 15 and was discharged to for rehab. Pt has been living at home with her most recently. Today she presents to the hospital from cardiology office where she was seen for routine follow-up. There they had been working with her Lasix and titrating up from 20 to 60 mg since November 17 due to increased edema in her lower extremities. She reports that she normally weighs 114 pounds, but that her legs have remained edematous. She denies any changes in her dietary intake, and has been taking her medications as instructed. Pt admits to heaviness in her chest, worsening shortness of breath, fatigue, but denies specific chest pain, abdominal pain, nausea or vomiting. Last bowel movement was yesterday, and denies any complaints regarding urination. She did not take any of her medications today due to being at an appointment. She reports her legs have been very painful, and making it difficult to walk, even with a walker and a cane at baseline. There at the cardiology office, she was noted to be lethargic and falling asleep mid sentence. Patient was trans ferred via ambulance over to the ER by request of the physician today for inpatient admission, with decompensated CHF, not responding to increased diuretics as an outpatient. She also has a right lower leg ulceration which has been nonhealing for some time now; recently, a surface culture was obtained and grew out staph aureus and MRSA. She currently has Calmoseptine lotion over her leg to help dry it out. She reports that the pain in her legs has progressively worsened. She also notes she has been using aspirin 2-4 tablets at a time, about 4 times daily for the past month due to worsening pain. Her notes increased confusion and lethary at home. Admission Exam Per Admitting Provider General: awake, alert but lethargic, slow to answer questions, no apparent distress Head: Normocephalic, atraumatic ENT: PERRL, EOMI, no pharyngeal exudate, mucous membranes moist Chest: Clear to auscultation, on room air, no adventitious breath sounds Cardiac: + Irregularly irregular, tachy in the 120s at bedside, faint systolic murmur heard on exam, mild JVD, normal peripheral pulses, good capillary refill Abdominal: NABS x 4 quadrants, soft, nondistended, minimal tenderness to deep palpation in the LLQ, no rebound or guarding Extremities: + R anterior vallecillo ulceration measuring ~ 6x7 cm in diameter with granular tissue, minimal surrounding erythema, + trace bilateral nonpitting edema of legs, otherwise normal inspection, calfs nontender to palpation Psych: Normal mood and affect Neuro: AAO x 3, strength intact bilaterally and rated 4/5, no motor deficits, speech is clear, no peripheral sensory deficits Principal Diagnosis (1) Wound of right lower extremity: (2) Dysphagia: (3) Metabolic acidosis: (4) Diastolic heart failure: (5) Elevated troponin: (6) Afib: (7) Generalized weakness: (8) Ambulatory dysfunction: (9) Type II diabetes mellitus, uncontrolled: (10) Hypothyroidism: (11) Noncompliance: Discharge Exam General: Lying comfortably in bed, not in distress, on room air Chest:Fair breath sounds bilaterally, no wheezes or crackles CVS: Irregular, normal heart sounds Abdomen: Soft, non tender, not distended, normal bowel sounds Neuro: Awake, alert, conversing ok, non focal Extremities: RLE ulcer noted- improving. B/L LE venous stasis changes with some edema. Discharge Data Allergies Allergy/AdvReac Type Severity Reaction Status Date / Time citalopram Allergy Unknown Unknown Verified 08/08/21 20:42 paroxetine Allergy Unknown Unknown Verified 08/08/21 20:42 Sulfa (Sulfonamide Allergy Unknown TOLERATES Verified 08/08/21 20:42 Antibiotics) LASIX venom-wasp protein Allergy Unknown HIVES Verified 08/08/21 20:42 celecoxib AdvReac Mild N/V Verified 08/08/21 20:42 Consultations 12/04/21 12:51 ED Decision to Admit Stat 12/04/21 15:28 Consult Cardiology Routine 12/04/21 20:28 Consult Nephrology Routine 12/05/21 16:27 Consult Gastroenterology Routine 12/06/21 09:15 Consult Orthopedic Surgery Routine Procedures Performed Operation Date: 12/06/21 16:00 Actual Procedures p EGD Biopsy Cytology - Libby Wu DO Ordered Studies 12/04/21 14:29 CT head/brain wo con Stat Hospital Course (1) Wound of right lower extremity: (2) Dysphagia: (3) Metabolic acidosis: (4) Diastolic heart failure: (5) Elevated troponin: (6) Afib: (7) Generalized weakness: (8) Ambulatory dysfunction: (9) Type II diabetes mellitus, uncontrolled: (10) Hypothyroidism: (11) Noncompliance: Plan Patient is a 81 yo F with PMHx of insulin-dependent T2DM uncontrolled, PAF not anticoagulated on warfarin due to hx of frequent galls and rectus sheath hematoma/subarachnoid hemorrhage in the past, history of sinus node dysfunction status post pacemaker placement in 2009, chronic HFpEF, peripheral neuropathy, hypothyroidism, HTN, HLD, presents to the hospital with complaint of bilateral leg pain. She was found to have right lower leg ulceration. Wound culture was performed; positive for Pseudomonas and MRSA. Patient was a started on daptomycin and cefepime. Daily wound dressing was performed. CRP ESR were within normal limits. She was also seen by orthopedics; recommended no operative interventions. Patient's Lasix was kept on hold during the hospitalization. On discharge, it was kept on hold till she follows up with PCP. Patient was also complaining of dysphagia for which she underwent EGD on 12/06; found to have grade D reflux esophagitis and esophageal plaque suspicious for candidiasis. Biopsy were negative for fungus. Patient was started on PPI twice daily for 12 weeks and was recommended to have GI follow-up. During the evaluation in the hospital, patient was also found to have non-anion gap metabolic acidosis. She was started on sodium bicarb tablets. Her Synthroid was adjusted to 88 mcg daily from 75 mcg. PT OT evaluation was performed; patient was recommended to go to subacute rehab. Patient was initially resistant but agreed to go to [facility] after consultation with the family. Patient was discharged on Bactrim and cefepime to complete 10-day course at the subacute rehab. Total Time Total Time Spent Total Time Spent (In Minutes): 35 Total Time Includes: Examination of the Patient, Discharge Planning, Medication Reconciliation, Communication With Other Providers and Other Discharge Plan Discharge Items Patient Disposition: Transfer [facility] Reason For Visit: CHF Discharge Diagnosis: (1) Wound of right lower extremity: (2) Dysphagia: (3) Metabolic acidosis: (4) Diastolic heart failure: (5) Elevated troponin: (6) Afib: (7) Generalized weakness: (8) Ambulatory dysfunction: (9) Type II diabetes mellitus, uncontrolled: (10) Hypothyroidism: (11) Noncompliance: Activity: Resume your previous activity Non-emergency contact: Primary Care Provider Call non-emergency contact if: you have any medication questions and your wound has increased drainage Follow-up/Referrals: Mo Fontenot DO [Primary Care Provider] - Diet: Carb Consistent or DM2 Addtl Attending Provider Instructions: Please take the medications as prescribed. Please follow up with your PCP in one week. Please take Bactrim DS twice daily for 5 days. Please take Cefepime Iv for 4 more days. Your dose of levothyroxine is increased to 88 mcg. Lasix is currenly on hold. Please follow up with PCP to discuss regarding it. Pending Studies at Discharge: No Stand-Alone Forms: My [facility] Skilled Items Patient informed of condition?: Yes DNR: No Discharge Level of Care: Skilled Communicable Disease: No Discharge Prognosis: Stable Lines: Peripheral IV Urinary Catheter: No Medications and DC Order Prescriptions: New sulfamethoxazole-trimethoprim [Bactrim DS] 800-160 mg Tablet 1 tab PO Q12 Qty: 10 0RF pantoprazole 40 mg Tablet,Delayed Release (Dr/Ec) 40 mg PO BID Qty: 60 0RF polyethylene glycol 3350 [Miralax] 17 gram Powder In Packet 17 g PO .prn Qty: 14 0RF sodium bicarbonate 650 mg Tablet 650 mg PO BID Qty: 30 0RF levothyroxine [Synthroid] 88 mcg Tablet 88 mcg PO DAILYBB Qty: 30 0RF cefepime 2 gram recon soln 1 g IV Q12H Qty: 10 0RF Continued Lantus Solostar U-100 Insulin 100 unit/mL (3 mL) insulin pen 25 unit SUBCUT QAM losartan 50 mg Tablet 50 mg PO DAILY atorvastatin 40 mg Tablet 40 mg PO DAILY spironolactone 25 mg Tablet 25 mg PO DAILY magnesium oxide 400 mg magnesium Capsule 400 mg PO DAILY insulin lispro [Humalog KwikPen Insulin] 100 unit/mL insulin pen 1 unit subcut UD Qty: 0 0RF Rx Instructions: SLIDING SCALE NovoLog per scale ACHS or Q6hrs while NPO Give 6 units with breakfast and 5 units with supper Goal Range: Low 110 mg/dL - High 140 mg/dL Correction Factor: 25 mg/dL/unit Nutritional / Prandial insulin per carb ratio of 1 unit per 8 grams CHO consumed metoprolol succinate 100 mg tablet extended release 24 hr 100 mg PO BID Qty: 60 0RF gabapentin 300 mg capsule 300 mg PO HS allopurinol 300 mg tablet 300 mg PO DAILY digoxin 125 mcg (0.125 mg) tablet 125 mcg PO DAILY@2000 epinephrine 0.3 mg/0.3 mL Auto-Injector 0.3 mg IM Q4H PRN (Reason: Allergic Reaction) cholecalciferol (vitamin D3) 25 mcg (1,000 unit) Tablet 25 mcg PO DAILY Discontinued levothyroxine 75 mcg Tablet 75 mcg PO DAILY furosemide 40 mg tablet 60 mg PO DAILY Rx Instructions: ADDITIONAL 20MG PO DAILY IF WITH LEG EDEMA Discharge Orders: Discharge Order (Routine); Ordered 12/12/21 Ordered By: Rohan Balderas/Other Patient Handouts: Esophagitis, Understanding Gastritis, Soft [place] Diet Dc, Eating to Prevent Gout Admission Data Admit Date/Time: 12/04/21 13:22 Attending Provider: Rohan Lopez Admit Provider: Kizzy Avery Primary Care Provider: Mo Fontenot Other Providers: Dana Ramirez ; Odilon Palmer ; [facility] ; Marcello Rodriguez ; Steve Guevara ; [facility] ; [facility] ; [place] Other Interventions: Discharge Summary Assessment (RN) Last Done: 12/12/21 16:40
[2021-12-12] MEDS ORDERED: SULFAMETHOXAZOLE/TRIMETHOPRIM DS 800/160MG TAB PO SCH (21:00)
== END 2021-12-12 17:00 | DRG 640 ==
LOC: ED 11:17 → EDINP 13:22 → SUATTDRO 13:22 → 2S 16:18